=== PATIENT | female | born 1935 | race African-American/Black ===

== ENCOUNTER 2016-07-05 11:20 | Inpatient (IN) | payer MEDICARE, OTHER ==
[~2016-07-05] VITALS: Ht 162.6 cm; Wt 78.6 kg
[~2016-07-05 11:20] MED LIST: ALLO300T PO; ASPI325T4 PO; ASPI81TA2 PO; ATEN25TA PO; ATEN50TA PO; CARB1TAB2 PO; CARB1TAB5 PO; CHOL100013 PO; CHOL1CRY3 MC; DARB100D IJ; DARB60DI IJ; EPOE20002 IJ; FAMO-63 PO; FAMO20TA5 PO; FEBU40TA PO; FERR159T3 PO; FERR160T4 PO; FURO-69 PO; FURO20TA3 PO; HYDR-2666 PO; IRON150C3 PO; LEVO500T38 PO; PARI1CAP PO; PARI2CAP PO; RIVA10TA PO; RIVA20TA2 PO; [UNRECOGNIZED DRUG - CODE] PO
[2016-07-05] MEDS ORDERED: FENTANYL PF 100 MCG/2 ML VIAL. IV PRN (12:30)
[2016-07-05 12:38] LABS: BILIRUBIN,URINE NEGATIVE (NEG); GLUCOSE,URINE NEGATIVE (NEG); NITRITE,URINE NEGATIVE (NEG); PH,URINE 6.5; PROTEIN,URINE NEGATIVE (NEG-TRACE)
[2016-07-05 12:40] LABS: BASO # 0.1 x10^3/uL (0.0-0.2); BASO % 1 % (0-3); EOS % 1 % (0-3); HEMATOCRIT 32.7 % (36.0-47.0); HEMOGLOBIN 9.9 g/dL (12.0-15.5); LYMPH % 11 % (24-48); MEAN CORPUSCULAR HEMOGLOBIN 19 pg (25-35); MEAN CORPUSCULAR HGB CONC 30 g/dL (31-37); MEAN CORPUSCULAR VOLUME 63 fL (79-100); MONO % 6 % (0-9); NEUT % 82 % (31-73); PLATELET COUNT 269 x10^3/uL (140-400); RED BLOOD COUNT 5.21 x10^6/uL (3.50-5.40); RED CELL DISTRIBUTION WIDTH 16.7 % (11.5-14.5); WHITE BLOOD COUNT 9.3 x10^3/uL (4.0-11.0)
[2016-07-05 12:46] LABS: CALCIUM 9.8 mg/dL (8.5-10.1); CREATININE 1.3 mg/dL (0.6-1.0); GFR 47.6; POTASSIUM 3.9 mmol/L (3.5-5.1)
[2016-07-05 12:52] LABS: BACTERIA,URINE 0 /HPF (0-FEW); RBC,URINE OCC /HPF (0-2); SQUAMOUS EPITHELIAL CELL,UR FEW /LPF; WBC,URINE 0 /HPF (0-4)
[2016-07-05 12:52] LABS: ALBUMIN 3.1 g/dL (3.4-5.0); DIRECT BILIRUBIN 0.1 mg/dL (0.0-0.2); TOTAL BILIRUBIN 0.6 mg/dL (0.2-1.0); TOTAL PROTEIN 7.9 g/dL (6.4-8.2)
[2016-07-05 12:55] LABS: INR 1.2 (0.8-1.1); PROTHROMBIN TIME PATIENT 14.7 SEC (11.7-14.0)
--- NOTE | 2016-07-05 14:05 | RAD ---
VENOUS LOWER EXT BILATERAL History:Right greater than left leg swelling, edema, history of left DVT Comparison: 07/12/2015 bilateral exam Findings:Multiple grayscale, color, duplex spectral analysis waveform images were acquired of the lower extremity veins bilaterally. There is now occlusive thrombus of the right greater saphenous vein with extent into the right common femoral vein, occlusive flow of these segments. Remainder of the interrogated right lower extremity veins are patent from the superficial femoral vein to the popliteal vein. There is occlusive thrombus in the right greater saphenous vein from the distal thigh into the superficial saphenous vein. There is again abnormal echogenicity in the left common femoral vein, also segments of the left superficial femoral vein and popliteal vein which appears chronic. There is normal color flow of the proximal left profunda femoris vein. There is edema of the right lower extremity soft tissues. Impression: 1.There is occlusive thrombus of the right greater saphenous vein which extends into the right common femoral vein, likely acute. 2. There is chronic appearing thrombus of the left lower extremity veins. Critical results were called to Dr. Eugene 07/05/2016 at 1401.
--- NOTE | 2016-07-05 14:14 | PHYS DOC ---
Past Medical History Past Medical History: Other Past Medical History Constipation, Hypertension, Renal Disease, chronic kidney disease, dvt left leg with IVC filter, anemia w blood tranfusion Past Surgical History: Cholecystectomy Additional Past Surgical Histo: cataract,gout, IVC filter Alcohol Use: None Drug Use: None Adult General Chief Complaint Chief Complaint: ABDOMINAL PAIN HPI HPI Patient is a 81 year old female with h/o LLE DVT and IVC filter on aspirin therapy who presents with complaint of right pelvic pain moving through to her right thigh over the past 3 days. She notes a constant pain that is worse with range of motion of her right lower extremity at the hip. She notes redness along her right inner thigh developing along the same timeline. She notes swelling of her right lower extremity entirety over the same timeline. She denies injury, numbness, tingling, weakness, fever or chills, nausea or vomiting , dysuria, hematuria, constipation, diarrhea. Review of Systems Review of Systems Constitutional: Denies fever or chills [] Eyes: Denies change in visual acuity, redness, or eye pain [] HENT: Denies nasal congestion or sore throat [] Respiratory: Denies cough or shortness of breath [] Cardiovascular: No additional information not addressed in HPI [] GI: Denies nausea, vomiting, bloody stools or diarrhea [] : Denies dysuria or hematuria [] Musculoskeletal: Denies back pain [] Integument: Denies skin lesions [] Neurologic: Denies headache, focal weakness or sensory changes [] Endocrine: Denies polyuria or polydipsia [] Current Medications Current Medications Current Medications Medications (Trade) Dose Ordered Sig/[facility] Start Time Stop Time Status Last Admin Dose Admin Acetaminophen 650 mg 650 mg PRN Q4HRS PRN 07/05/16 14:30 07/06/16 14:29 Fentanyl Citrate (Fentanyl 2ml Vial) 50 mcg PRN Q2HR PRN 07/05/16 14:30 07/06/16 14:29 Heparin Sodium (Porcine) 1,200 unit PRN Q6HRS PRN 07/05/16 14:45 Heparin Sodium/ Dextrose 500 ml @ 0 mls/hr CONT PRN 07/05/16 14:45 Ondansetron HCl (Zofran) 4 mg PRN Q8HRS PRN 07/05/16 14:30 07/06/16 14:29 Allergies Allergies Allergies Coded Allergies Type Severity Reaction Last Updated Verified No Known Drug Allergies 06/23/16 No Physical Exam Physical Exam Constitutional: Well developed, well nourished, no acute distress, non-toxic appearance. [] HENT: Normocephalic, atraumatic, bilateral external ears normal, oropharynx moist, nose normal. [] Eyes: PERRLA, EOMI. [] Neck: Normal range of motion, supple. [] Cardiovascular:Heart rate regular rhythm [] Lungs & Thorax: Bilateral breath sounds clear to auscultation [] Abdomen: Bowel sounds normal, soft, no tenderness. [] Skin: Warm, dry, no erythema, no rash. [] Back: No tenderness, no CVA tenderness. [] Extremities: Right lower extremity swollen and entirety than left lower extremity, right lower extremity with redness to proximal inner thigh that has mild tenderness with no crepitance/induration/fluctuance/warmth, ROM intact, 1+ left lower extremity pitting edema and 2+ right lower extremity pitting edema, equal bilateral DP pulses. [] Neurologic: Alert and oriented X 3, normal motor function, normal sensory function, no focal deficits noted. [] Psychologic: Affect normal, judgement normal, mood normal. [] Current Patient Data Vital Signs Vital Signs Date Time Temp Pulse Resp B/P Pulse Ox O2 Delivery O2 Flow Rate FiO2 07/05/16 14:43 68 14 154/77 96 Room Air 07/05/16 11:45 97.9 97.9 Lab Values Laboratory Tests Test 07/05/16 11:50 07/05/16 12:00 Urine Collection Type Unknown Urine Color Yellow Urine Clarity Clear Urine pH 6.5 Urine Specific [place] 1.010 Urine Protein Negativemg/dL (NEG-TRACE) Urine Glucose (UA) Negativemg/dL (NEG) Urine Ketones (Stick) Negativemg/dL (NEG) Urine Blood Trace (NEG) Urine Nitrite Negative (NEG) Urine Bilirubin Negative (NEG) Urine Urobilinogen Dipstick 1.0mg/dL (0.2 mg/dL) Urine Leukocyte Esterase Negative (NEG) Urine RBC Occ/HPF (0-2) Urine WBC 0/HPF (0-4) Urine Squamous Epithelial Cells Few/LPF Urine Bacteria 0/HPF (0-FEW) Urine Hyaline Casts Few/HPF White Blood Count 9.3x10^3/uL (4.0-11.0) Red Blood Count 5.21x10^6/uL (3.50-5.40) Hemoglobin 9.9g/dL (12.0-15.5) L Hematocrit 32.7% (36.0-47.0) L Mean Corpuscular Volume 63fL (79-100) L Mean Corpuscular Hemoglobin 19pg (25-35) L Mean Corpuscular Hemoglobin Concent 30g/dL (31-37) L Red Cell Distribution Width 16.7% (11.5-14.5) H Platelet Count 269x10^3/uL (140-400) Neutrophils (%) (Auto) 82% (31-73) H Lymphocytes (%) (Auto) 11% (24-48) L Monocytes (%) (Auto) 6% (0-9) Eosinophils (%) (Auto) 1% (0-3) Basophils (%) (Auto) 1% (0-3) Neutrophils # (Auto) 7.6x10^3uL (1.8-7.7) Lymphocytes # (Auto) 1.0x10^3/uL (1.0-4.8) Monocytes # (Auto) 0.6x10^3/uL (0.0-1.1) Eosinophils # (Auto) 0.1x10^3/uL (0.0-0.7) Basophils # (Auto) 0.1x10^3/uL (0.0-0.2) Platelet Estimate Adequate (ADEQUATE) Hypochromasia Marked Poikilocytosis Slight Anisocytosis Slight Microcytosis Marked Target Cells Mod Prothrombin Time 14.7SEC (11.7-14.0) H Prothrombin Time INR 1.2 (0.8-1.1) H PTT 35SEC (24-38) Sodium Level 138mmol/L (136-145) Potassium Level 3.9mmol/L (3.5-5.1) Chloride Level 103mmol/L (98-107) Carbon Dioxide Level 28mmol/L (21-32) Anion Gap 7 (6-14) Blood Urea Nitrogen 17mg/dL (7-20) Creatinine 1.3mg/dL (0.6-1.0) H Estimated GFR (Cockcroft-Gault) 47.6 Glucose Level 115mg/dL (70-99) H Calcium Level 9.8mg/dL (8.5-10.1) Total Bilirubin 0.6mg/dL (0.2-1.0) Direct Bilirubin 0.1mg/dL (0.0-0.2) Aspartate Amino Transferase (AST) 14U/L (15-37) L Alanine Aminotransferase (ALT) 6U/L (14-59) L Alkaline Phosphatase 66U/L (46-116) Total Protein 7.9g/dL (6.4-8.2) Albumin 3.1g/dL (3.4-5.0) L Lipase 158U/L (73-393) Laboratory Tests 07/05/16 12:00 Laboratory Tests 07/05/16 12:00 Radiology/Procedures Radiology/Procedures US venous doppler bilateral lower extremity Impression: 1.There is occlusive thrombus of the right greater saphenous vein which extends into the right common femoral vein, likely acute. 2. There is chronic appearing thrombus of the left lower extremity veins. Critical results were called to Dr. Marcelo 07/05/2016 at 1401. DICTATED and SIGNED BY: SAMANTHA ARELLANO MD DATE: 07/05/16 3559 Course & Med Decision Making Course & Med Decision Making Pertinent Labs and Imaging studies reviewed. (See chart for details) It is questionable that she was taken off xarelto for GI bleeding. Patient and daughter note she had one episode of dark stool around the time that she was taken off of xarelto. She has only been on aspirin for approximately 6 months. Workup remarkable for chronic appearing left lower extremity DVT and new- appearing right lower extremity DVT seen on ultrasound. Will admit for anticoagulation therapy. Discussed case with Dr. Carvalho, for Dr. Varner, who will admit. Heparin drip ordered. Dragon Disclaimer Dragon Disclaimer This electronic medical record was generated, in whole or in part, using a voice recognition dictation system. Departure Departure Impression: Primary Impression: DVT (deep venous thrombosis) Disposition: ADMITTED INPATIENT Condition: STABLE Referrals: FATIMAH VARNER MD (PCP) Problem Qualifiers Primary Impression: DVT (deep venous thrombosis) DVT location: lower extremity Affected thrombotic vein of extremity: femoral Laterality: right Chronicity: acute Qualified Code: I82.411 - Acute embolism and thrombosis of right femoral vein Gia MARCELO MD Jul 05, 2016 14:14
[2016-07-05 14:15] LABS: HYPOCHROMIA MARKED; PLT ESTIMATE ADEQUATE (ADEQUATE); POIKILOCYTOSIS SLIGHT
[2016-07-05 14:16] LABS: ANISOCYTOSIS SLIGHT; MICROCYTOSIS MARKED; TARGET CELLS MOD
[2016-07-05] MEDS ORDERED: ONDANSETRON PF 4 MG/2 ML VIAL. IV PRN (14:30)
[2016-07-05] MEDS ORDERED: HEPARIN for IV BOLUS 10,000 UNIT/10 ML VIAL. IV PRN ×2 (14:45)
[2016-07-05] MEDS: HEPARIN 25,000UTS/500ML PREMIX 500 ML IV PRN (16:29)
--- NOTE | 2016-07-05 16:46 | ACF ---
Admission Forms Criteria DEEP VENOUS THROMBOSIS OF LOWER EXTREMITIES Clinical Indications for Admission to Inpatient Care ( Place 'X' for any and all applicable criteria): Admission is indicated for ANY ONE of the following (1)(2)(3)(4): [ ]I. Documented extensive thrombosis (e.g., clot in vena cava or above iliofemoral bifurcation) [ ]II. Limb-threatening thrombosis (e.g., phlegmasia cerulea dolens) [ ]III. Active bleeding [ ]IV. Recent surgery (e.g., within 6 weeks) [ ]V. Active peptic ulcer disease [ ]. Thrombosis while on anticoagulation [ ]VII. [X]VIII. Appropriate monitoring and therapy cannot be provided in home or outpatient setting [ ]IX. Thrombolysis (e.g., catheter-directed) or pharmaco mechanical thrombectomy needed (3) [ ]X. Vena cava filter placement planned (3) [ ]XI. Severely diminished cardiopulmonary reserve (e.g., pulmonary hypertension) [ ]XII. Severe renal failure (e.g., GFR less than 30 mL/min/1.73m2 (0.5 mL/sec /1.73m2)) [ ]XIII. Known clotting abnormality or deficiency (antithrombin III, protein C , or protein S) [ ]XIV. History of heparin-induced thrombocytopenia [ ]XV . Personal or family history of bleeding tendency or familial bleeding disorder that requires inpatient admission rather than observation care (Also use Deep Venous Thrombosis of Lower Extremities: Observation Care as appropriate) because of ANY ONE of the following: [ ]a) Significant allergic, autoimmune (thrombocytopenia), or coagulopathic reaction occurs in response to anticoagulation [ ]b) Other significant finding or clinical condition judged not to be within the scope of observation care Extended stay beyond goal length of stay may be needed for(1)(19): [ ]a) Hemorrhage or recent surgery(3) [ ]b) Inadequate oral anticoagulation [ ]c) Recurrent thromboembolism(3) [ ]d) Heparin-induced thrombocytopenia(14) The original [facility] content created by [facility] has been revised. The portions of the content which have been revised are identified through the use of italic text or in bold, and [facility] has neither reviewed nor approved the modified material. All other unmodified content is copyright [facility]. Please see references footnoted in the original [facility] edition 2016 Admission Criteria Met?: Yes NELSON UMANZOR Jul 05, 2016 16:46
[2016-07-05 18:40] VITALS: BP 133/58
[2016-07-05 19:00] VITALS: BP 129/62
[2016-07-05] MEDS: FENTANYL PF 100 MCG/2 ML VIAL. IV PRN ×2 (20:13→23:57)
[2016-07-05] MEDS: CARBIDOPA/LEVODOPA CR 25/100MG TABLET.SA PO SCH (20:44)
[2016-07-05 23:00] VITALS: BP 116/56
[2016-07-06] MEDS: ACETAMINOPHEN 325 MG TABLET. PO PRN ×2 (01:03→13:32)
[2016-07-06 03:06] VITALS: BP 106/54
[2016-07-06 07:00] VITALS: BP 122/68
--- NOTE | 2016-07-06 08:53 | PDOC ---
Provider Note Provider Note H&P dictated # [id number] Deejay MACK MD Jul 06, 2016 08:53
[2016-07-06 09:01] LABS: % SAT IRON 14 % (15-34); IRON,SERUM 19 ug/dL (50-170)
[2016-07-06 10:36] VITALS: BP 115/59
[2016-07-06] MEDS: CARBIDOPA/LEVODOPA CR 25/100MG TABLET.SA PO SCH ×4 (12:11→21:20)
[2016-07-06] MEDS: CHOLECALCIFEROL (VITAMIN D3) 1,000 UNIT TABLET PO SCH (12:11)
[2016-07-06] MEDS: PARICALCITOL 1 MCG CAPSULE PO SCH (12:11)
[2016-07-06] MEDS: HEPARIN 25,000UTS/500ML PREMIX 500 ML IV PRN (12:19)
--- NOTE | 2016-07-06 12:23 | HP ---
ADMIT DATE: 07/05/2016 ADMISSION DIAGNOSIS: Acute deep venous thrombosis. HISTORY OF PRESENT ILLNESS: This is an 81-year-old -[place] female with Parkinson's disease who saw Dr. Varner last fall and had some rectal bleeding. She was on Xarelto at that time and because of heme positive stool and a history of prior GI bleed, it was stopped. She was placed on 325 mg aspirin instead and has done well until recently when she noticed some swelling in her right leg. She has also had some discomfort in that leg. She has previously had a DVT in her left leg, but she also has an IVC filter. She has a history of iron deficiency anemia and has had blood transfusions in the past with her GI bleeding. PAST MEDICAL HISTORY: Significant for hypertension, chronic kidney disease, constipation related to her Parkinson's, gout. PAST SURGICAL HISTORY: Include cholecystectomy and IVC filter placement, cataract extraction. FAMILY HISTORY: Noncontributory. SOCIAL HISTORY: Nonsmoker, no alcohol, no drug use. ALLERGIES: She has no known drug allergies. HOME MEDICATIONS: Include allopurinol 300 mg daily, Sinemet controlled release 50-200 one t.i.d., vitamin D 1000 mg daily, furosemide 20 mg daily, Ferrex 150 mg 1 daily, Zemplar 1 mcg daily. REVIEW OF SYSTEMS: CONSTITUTIONAL: No recent cold symptoms. No fever, chills or weight loss. PULMONARY: Negative for cough. CARDIAC: Negative for chest pain. GASTROINTESTINAL: Negative for nausea, vomiting or diarrhea. GENITOURINARY: She urinates well. No dysuria. MUSCULOSKELETAL: She denies acute joint pain. She has noticed the swelling just over the recent days in her right upper leg and some pain down the right leg. NEUROLOGIC: Positive for Parkinson's tremor that seems to be a little more active since she last saw Dr. Mirza. She is also having some episodes where she tends to freeze before she can get up and walk. She has been sleeping well. She still gets out about, although she does not drive. PHYSICAL EXAMINATION: VITAL SIGNS: Temperature 98.1, pulse 81, respiratory rate 18-20. Pulse oximetry is upper 90% on room air. Blood pressures have been in the 110/70 range. GENERAL: She is no acute distress. She has a slight head tremor. She has got a parkinsonian pill-rolling tremor of her arms, more so on the right. HEART: Regular rate and rhythm. LUNGS: Clear to auscultation. ABDOMEN: Nondistended. EXTREMITIES: There is some mild swelling of the right leg. Lower extremity Doppler shows new clot in the right leg, old clot in the left leg. LABORATORY DATA: Show a persistent anemia, hemoglobin of 9.9, MCV is low at 63. Marked microcytosis is noted. Moderate ____ are noted. INR is 1.2. Chemistry show a creatinine of 1.3 with EGFR of 47, glucose of 115, albumin of 3.1. ASSESSMENT: 1. Acute deep venous thrombosis of the right leg with a history of prior deep venous thrombosis in the left leg and IVC filter placement, so she is not at a higher risk of pulmonary embolism. 2. Parkinson's, more symptomatic. Recently, she seems to be fairly active, but certainly may have enough "sit down time to develop a DVT." She had not had any recent travel or prolonged sitting. 3. Chronic kidney disease. 4. Moderate protein deficiency. 5. History of gout. 6. Hypertension. 7. Constipation. PLAN: She is admitted. She is currently on heparin. She did tolerate Xarelto well in the past. The commercials on TV worried her daughter, but she is willing to go back on it. She has a followup appointment with Dr. Mirza who tried to have ropinirole while she is here and see if that does help with her Parkinson's and subsequently help with her being more active as her relative inactivity may have contributed to her DVT. She also has a history of iron deficiency. Despite being on iron, her anemia persists. Her MCV is still low, so we will assess her iron level and consider IV iron therapy while here. If iron level is low, she is probably not observing it well. W Angelina MACK MD DR: FAREED/eri JOB#: [id number] / [id number]
[2016-07-06] MEDS: FUROSEMIDE 20 MG TABLET PO SCH (13:12)
[2016-07-06] MEDS: rOPINIRole 0.25 MG TABLET. PO SCH ×3 (13:12→21:20)
[2016-07-06] MEDS: ALLOPURINOL 300 MG TABLET. PO SCH (13:13)
[2016-07-06] MEDS: IRON POLYSACCHARIDE COMPLEX 150 MG CAPSULE PO SCH (13:13)
[2016-07-06] MEDS: FENTANYL PF 100 MCG/2 ML VIAL. IV PRN (13:32)
[2016-07-06 15:00] VITALS: BP 123/66
[2016-07-06] MEDS ORDERED: IRON SUCROSE COMPLEX 200 MG in IV NORMAL SALINE 100ML 100 ML IV ONE (17:00)
[2016-07-06 19:00] VITALS: BP 112/62
[2016-07-06 23:00] VITALS: BP 113/65
[2016-07-07 03:00] VITALS: BP 131/79
[2016-07-07] MEDS: HEPARIN 25,000UTS/500ML PREMIX 500 ML IV PRN (05:44)
[2016-07-07 07:58] VITALS: BP 108/68
[2016-07-07] MEDS: ALLOPURINOL 300 MG TABLET. PO SCH (08:22)
[2016-07-07] MEDS: FUROSEMIDE 20 MG TABLET PO SCH (08:22)
[2016-07-07] MEDS: PARICALCITOL 1 MCG CAPSULE PO SCH (08:23)
[2016-07-07] MEDS: CARBIDOPA/LEVODOPA CR 25/100MG TABLET.SA PO SCH ×3 (08:23→20:22)
[2016-07-07] MEDS: rOPINIRole 0.25 MG TABLET. PO SCH ×3 (08:23→20:22)
[2016-07-07] MEDS: IRON POLYSACCHARIDE COMPLEX 150 MG CAPSULE PO SCH (08:23)
[2016-07-07] MEDS: CHOLECALCIFEROL (VITAMIN D3) 1,000 UNIT TABLET PO SCH (08:23)
--- NOTE | 2016-07-07 08:57 | PDOC ---
PROGRESS NOTES Subjective Subjective She is still having pain redness and swelling of right upper inner thigh, no chest pain, no other concerns, tolerating heparin without any bleeding, no GI symptoms Objective Objective Vital Signs Date Time Temp Pulse Resp B/P Pulse Ox O2 Delivery O2 Flow Rate FiO2 07/07/16 08:02 Room Air 07/07/16 07:58 97.9 81 18 108/68 95 97.9 Intake and Output 07/07/16 07:00 Intake Total 2660 ml Output Total 600 ml Balance 2060 ml Intake Oral 2160 ml IV Total 500 ml Output Urine Total 600 ml # Voids 6 Physical Exam Abdomen: Soft Heart: Regular rate Extremities: No clubbing, No cyanosis General: Alert, Cooperative HEENT: Atraumatic Lungs: Normal air movement MUSCULOSKELETAL: No joint tenderness Neuro: Other (less parkinsonian tremor noted) Psych/Mental Status: Mental status NL Skin: No breakdown Assessment Assessment Problems Medical Problems: (1) DVT (deep venous thrombosis) Status: Acute Plan Plan of Care continue heparin IV, no evidence of complications, stable chronic medical problems Comment Review of Relevant I have reviewed the following items cathleen (where applicable) has been applied. Labs Laboratory Tests Test 07/05/16 11:50 07/05/16 12:00 07/05/16 22:15 07/06/16 04:30 Urine Collection Type Unknown Urine Color Yellow Urine Clarity Clear Urine pH 6.5 Urine Specific [place] 1.010 Urine Protein Negativemg/dL (NEG-TRACE) Urine Glucose (UA) Negativemg/dL (NEG) Urine Ketones (Stick) Negativemg/dL (NEG) Urine Blood Trace (NEG) Urine Nitrite Negative (NEG) Urine Bilirubin Negative (NEG) Urine Urobilinogen Dipstick 1.0mg/dL (0.2 mg/dL) Urine Leukocyte Esterase Negative (NEG) Urine RBC Occ/HPF (0-2) Urine WBC 0/HPF (0-4) Urine Squamous Epithelial Cells Few/LPF Urine Bacteria 0/HPF (0-FEW) Urine Hyaline Casts Few/HPF White Blood Count 9.3x10^3/uL (4.0-11.0) Red Blood Count 5.21x10^6/uL (3.50-5.40) Hemoglobin 9.9g/dL (12.0-15.5) Hematocrit 32.7% (36.0-47.0) Mean Corpuscular Volume 63fL (79-100) Mean Corpuscular Hemoglobin 19pg (25-35) Mean Corpuscular Hemoglobin Concent 30g/dL (31-37) Red Cell Distribution Width 16.7% (11.5-14.5) Platelet Count 269x10^3/uL (140-400) Neutrophils (%) (Auto) 82% (31-73) Lymphocytes (%) (Auto) 11% (24-48) Monocytes (%) (Auto) 6% (0-9) Eosinophils (%) (Auto) 1% (0-3) Basophils (%) (Auto) 1% (0-3) Neutrophils # (Auto) 7.6x10^3uL (1.8-7.7) Lymphocytes # (Auto) 1.0x10^3/uL (1.0-4.8) Monocytes # (Auto) 0.6x10^3/uL (0.0-1.1) Eosinophils # (Auto) 0.1x10^3/uL (0.0-0.7) Basophils # (Auto) 0.1x10^3/uL (0.0-0.2) Platelet Estimate Adequate (ADEQUATE) Hypochromasia Marked Poikilocytosis Slight Anisocytosis Slight Microcytosis Marked Target Cells Mod Prothrombin Time 14.7SEC (11.7-14.0) Prothromb Time International Ratio 1.2 (0.8-1.1) Activated Partial Thromboplast Time 35SEC (24-38) Sodium Level 138mmol/L (136-145) Potassium Level 3.9mmol/L (3.5-5.1) Chloride Level 103mmol/L (98-107) Carbon Dioxide Level 28mmol/L (21-32) Anion Gap 7 (6-14) Blood Urea Nitrogen 17mg/dL (7-20) Creatinine 1.3mg/dL (0.6-1.0) Estimated GFR (Cockcroft-Gault) 47.6 Glucose Level 115mg/dL (70-99) Calcium Level 9.8mg/dL (8.5-10.1) Total Bilirubin 0.6mg/dL (0.2-1.0) Direct Bilirubin 0.1mg/dL (0.0-0.2) Aspartate Amino Transf (AST/SGOT) 14U/L (15-37) Alanine Aminotransferase (ALT/SGPT) 6U/L (14-59) Alkaline Phosphatase 66U/L (46-116) Total Protein 7.9g/dL (6.4-8.2) Albumin 3.1g/dL (3.4-5.0) Lipase 158U/L (73-393) Heparin Anti-Xa Act, Unfractionated 0.35IU/mL (0.30-0.70) 0.49IU/mL (0.30-0.70) Iron Level 19ug/dL (50-170) Total Iron Binding Capacity 133ug/dL (250-450) Iron Saturation 14% (15-34) Test 07/07/16 04:30 Heparin Anti-Xa Act, Unfractionated 0.63IU/mL (0.30-0.70) Laboratory Tests Test 07/07/16 04:30 Heparin Anti-Xa Act, Unfractionated 0.63IU/mL (0.30-0.70) Medications Current Medications Fentanyl Citrate (Fentanyl 2ml Vial) 25 mcg PRN Q15MIN PRN IV PAIN GREATER THAN 3/10 Last administered on 07/05/16 12:45; Start 07/05/16 at 12:30; Stop at 12:29; Status DC Ondansetron HCl (Zofran) 4 mg PRN Q8HRS PRN IV NAUSEA/VOMITING; Start 07/05/16 at 14:30; Stop 07/06/16 at 14:29; Status DC Fentanyl Citrate (Fentanyl 2ml Vial) 50 mcg PRN Q2HR PRN IV PAIN Last administered on 07/06/16 13:32; Start 07/05/16 at 14:30; Stop 07/06/16 at 14:29 ; Status DC Acetaminophen 650 mg 650 mg PRN Q4HRS PRN PO FEVER Last administered on 13:32; Start 07/05/16 at 14:30; Stop 07/06/16 at 14:29; Status DC Heparin Sodium/ Dextrose 500 ml @ 0 mls/hr CONT PRN IV SEE I/O RECORD Last administered on 07/07/16 05:44; Start 07/05/16 at 14:45 Heparin Sodium (Porcine) 2,450 unit PRN Q6HRS PRN IV FOR UFH LEVEL LESS THAN 0.2 Last administered on 07/05/16 16:27; Start 07/05/16 at 14:45 Heparin Sodium (Porcine) 1,200 unit PRN Q6HRS PRN IV FOR UFH LEVEL 0.2 - 0.29; Start 07/05/16 at 14:45 Furosemide (Lasix) 20 mg DAILY PO Last administered on 07/07/16 08:22; Start 07/06/16 at 09:00 Polysaccharide Iron Complex (Niferex 150) 150 mg DAILY PO Last administered on 07/07/16 08:23; Start 07/06/16 at 09:00 Carbidopa/Levodopa (Sinemet Cr) 2 tab.sa TID PO Last administered on 07/07/16 08:23; Start 07/05/16 at 21:00 Vitamin D (Vitamin D3) 1,000 unit DAILY PO Last administered on 07/07/16 08:23 ; Start 07/06/16 at 09:00 Paricalcitol (Zemplar) 1 mcg DAILY PO Last administered on 07/07/16 08:23; Start 07/06/16 at 09:00 Allopurinol (Zyloprim) 300 mg DAILY PO Last administered on 07/07/16 08:22; Start 07/06/16 at 09:00 Ropinirole HCl 0.25 mg 0.25 mg TID PO Last administered on 07/07/16 08:23; Start 07/06/16 at 09:30 Iron Sucrose/ Sodium Chloride (Venofer/Iv Sodium Chloride 0.9% 100ml) 110 ml @ 55 mls/hr 1X ONCE IV Last administered on 07/06/16 22:18; Start 07/06/16 at 17:00; Stop 07/06/16 at 18:59; Status DC Active Scripts Active Reported Ferrex 150 (Iron Polysaccharides Complex) 150 Mg Capsule 150 Mg PO DAILY Sinemet Cr 50-200 Tablet (Carbidopa/Levodopa) 1 Each Tablet.er 1 Tab PO TID Allopurinol 300 Mg Tablet 1 Tab PO DAILY Furosemide 20 Mg Tablet 20 Mg PO DAILY Cholecalciferol (Cholecalciferol (Vitamin D3)) 1 Gm Crystals 1 Gm MC DAILY Zemplar (Paricalcitol) 2 Mcg Capsule 1 Mcg PO DAILY Vitals/I & O Vital Sign - Last 24 Hours 07/06/16 07/06/16 07/06/16 07/06/16 10:36 13:32 15:00 19:00 Temp 98.8 97.9 97.9 98.8 97.9 97.9 Pulse 66 74 73 Resp B/P 115/59 123/66 112/62 Pulse Ox 99 99 100 97 O2 Delivery Room Air Room Air Room Air Room Air 07/06/16 07/06/16 07/07/16 07/07/16 19:15 23:00 03:00 07:58 Temp 97.7 98.1 97.9 97.7 98.1 97.9 Pulse 76 80 81 Resp B/P 113/65 131/79 108/68 Pulse Ox 93 95 95 O2 Delivery Room Air Room Air Room Air Room Air 07/07/16 08:02 O2 Delivery Room Air Intake and Output 07/06/16 07/06/16 07/07/16 15:00 23:00 07:00 Intake Total 550 ml 1250 ml 860 ml Output Total 600 ml Balance -50 ml 1250 ml 860 ml Deejay MACK MD Jul 07, 2016 08:57
[2016-07-07 11:30] VITALS: BP 138/77
[2016-07-07] MEDS: ANTI-COAG MONITOR BY PHARMACY. MC PRN (13:34)
[2016-07-07 15:00] VITALS: BP 133/74
[2016-07-07 19:00] VITALS: BP 140/76
[2016-07-07 23:00] VITALS: BP 145/77
[2016-07-08] MEDS: HEPARIN 25,000UTS/500ML PREMIX 500 ML IV PRN ×2 (01:59→20:47)
[2016-07-08 03:02] VITALS: BP 132/73
[2016-07-08 07:15] VITALS: BP 133/75
[2016-07-08] MEDS: rOPINIRole 0.25 MG TABLET. PO SCH ×3 (08:59→20:42)
[2016-07-08] MEDS: IRON POLYSACCHARIDE COMPLEX 150 MG CAPSULE PO SCH (08:59)
[2016-07-08] MEDS: PARICALCITOL 1 MCG CAPSULE PO SCH (08:59)
[2016-07-08] MEDS: FUROSEMIDE 20 MG TABLET PO SCH (08:59)
[2016-07-08] MEDS: ALLOPURINOL 300 MG TABLET. PO SCH (08:59)
[2016-07-08] MEDS: CHOLECALCIFEROL (VITAMIN D3) 1,000 UNIT TABLET PO SCH (08:59)
[2016-07-08] MEDS: CARBIDOPA/LEVODOPA CR 25/100MG TABLET.SA PO SCH ×3 (10:17→20:42)
[2016-07-08 11:12] VITALS: BP 154/99
[2016-07-08] MEDS: ANTI-COAG MONITOR BY PHARMACY. MC PRN ×3 (14:11→14:15)
[2016-07-08 15:08] VITALS: BP 115/70
--- NOTE | 2016-07-08 16:48 | PDOC ---
PROGRESS NOTES Subjective Subjective She has been in bed most of the day, still having pain right upper inner thigh but improved, she seems to notice more edema of right leg, tolerating heparin without bleeding Objective Objective Vital Signs Date Time Temp Pulse Resp B/P Pulse Ox O2 Delivery O2 Flow Rate FiO2 07/08/16 15:08 97.6 79 18 115/70 96 Room Air 97.6 Intake and Output 07/08/16 07:00 Intake Total 780 ml Output Total 303 ml Balance 477 ml Intake Oral 280 ml IV Total 500 ml Output Urine Total 301 ml Urine/Stool Mix 2 ml # Voids 2 Physical Exam Abdomen: Normal bowel sounds, Soft Heart: Regular rate Extremities: No clubbing, No cyanosis, Other (4+ edema of right leg without any ulceration of venous stasis changes or erythema, tenderness in upper inner right thigh) General: Alert, Oriented X3, Cooperative HEENT: Atraumatic, Mucous membr. moist/pink Lungs: Clear to auscultation Neck: Supple Neuro: Normal speech, Other (no tremor currently) Psych/Mental Status: Mental status NL, Mood NL Skin: No breakdown Assessment Assessment Problems Medical Problems: (1) DVT (deep venous thrombosis) Status: Acute Plan Plan of Care continue heparin, she is willing to go back on xarelto po, add HCTZ for edema and PT,OT, continue parkinson meds, hopefully home with home health in a day or two Comment Review of Relevant I have reviewed the following items cathleen (where applicable) has been applied. Labs Laboratory Tests Test 07/07/16 04:30 07/08/16 04:47 Heparin Anti-Xa Act, Unfractionated 0.63IU/mL (0.30-0.70) 0.61IU/mL (0.30-0.70) Laboratory Tests Test 07/08/16 04:47 Heparin Anti-Xa Act, Unfractionated 0.61IU/mL (0.30-0.70) Medications Current Medications Fentanyl Citrate (Fentanyl 2ml Vial) 25 mcg PRN Q15MIN PRN IV PAIN GREATER THAN 3/10 Last administered on 07/05/16t 12:45; Start 07/05/16 at 12:30; Stop at 12:29; Status DC Ondansetron HCl (Zofran) 4 mg PRN Q8HRS PRN IV NAUSEA/VOMITING; Start 07/05/16 at 14:30; Stop 07/06/16 at 14:29; Status DC Fentanyl Citrate (Fentanyl 2ml Vial) 50 mcg PRN Q2HR PRN IV PAIN Last administered on 07/06/16 13:32; Start 07/05/16 at 14:30; Stop 07/06/16 at 14:29 ; Status DC Acetaminophen 650 mg 650 mg PRN Q4HRS PRN PO FEVER Last administered on 13:32; Start 07/05/16 at 14:30; Stop 07/06/16 at 14:29; Status DC Heparin Sodium/ Dextrose 500 ml @ 0 mls/hr CONT PRN IV SEE I/O RECORD Last administered on 07/08/16 01:59; Start 07/05/16 at 14:45 Heparin Sodium (Porcine) 2,450 unit PRN Q6HRS PRN IV FOR UFH LEVEL LESS THAN 0.2 Last administered on 07/05/16 16:27; Start 07/05/16 at 14:45 Heparin Sodium (Porcine) 1,200 unit PRN Q6HRS PRN IV FOR UFH LEVEL 0.2 - 0.29; Start 07/05/16 at 14:45 Furosemide (Lasix) 20 mg DAILY PO Last administered on 07/08/16 08:59; Start 07/06/16 at 09:00 Polysaccharide Iron Complex (Niferex 150) 150 mg DAILY PO Last administered on 07/08/16 08:59; Start 07/06/16 at 09:00 Carbidopa/Levodopa (Sinemet Cr) 2 tab.sa TID PO Last administered on 07/08/16 12:39; Start 07/05/16 at 21:00 Vitamin D (Vitamin D3) 1,000 unit DAILY PO Last administered on 07/08/16 08:59 ; Start 07/06/16 at 09:00 Paricalcitol (Zemplar) 1 mcg DAILY PO Last administered on 07/08/16 08:59; Start 07/06/16 at 09:00 Allopurinol (Zyloprim) 300 mg DAILY PO Last administered on 07/08/16 08:59; Start 07/06/16 at 09:00 Ropinirole HCl 0.25 mg 0.25 mg TID PO Last administered on 07/08/16 12:39; Start 07/06/16 at 09:30 Iron Sucrose/ Sodium Chloride (Venofer/Iv Sodium Chloride 0.9% 100ml) 110 ml @ 55 mls/hr 1X ONCE IV Last administered on 07/06/16 22:18; Start 07/06/16 at 17:00; Stop 07/06/16 at 18:59; Status DC Info (Anti-Coagulation Monitoring By Pharmacy) 1 each PRN DAILY PRN MC SEE COMMENTS Last administered on 07/08/16 14:15; Start 07/07/16 at 13:30 Active Scripts Active Reported Ferrex 150 (Iron Polysaccharides Complex) 150 Mg Capsule 150 Mg PO DAILY Sinemet Cr 50-200 Tablet (Carbidopa/Levodopa) 1 Each Tablet.er 1 Tab PO TID Allopurinol 300 Mg Tablet 1 Tab PO DAILY Furosemide 20 Mg Tablet 20 Mg PO DAILY Cholecalciferol (Cholecalciferol (Vitamin D3)) 1 Gm Crystals 1 Gm MC DAILY Zemplar (Paricalcitol) 2 Mcg Capsule 1 Mcg PO DAILY Vitals/I & O Vital Sign - Last 24 Hours 07/07/16 07/07/16 07/07/16 07/08/16 19:00 20:00 23:00 03:02 Temp 97.7 97.9 97.9 97.7 97.9 97.9 Pulse 70 73 86 Resp 18 18 20 B/P 140/76 145/77 132/73 Pulse Ox 95 97 98 O2 Delivery Room Air Room Air Room Air Room Air 07/08/16 07/08/16 07/08/16 07/08/16 07:15 08:00 11:12 15:08 Temp 97.8 98.0 97.6 97.8 98.0 97.6 Pulse 67 88 79 Resp 18 20 18 B/P 133/75 154/99 115/70 Pulse Ox 96 94 96 O2 Delivery Room Air Room Air Room Air Room Air Intake and Output 07/07/16 07/07/16 07/08/16 15:00 23:00 07:00 Intake Total 280 ml 500 ml Output Total 2 ml 301 ml Balance 280 ml -2 ml 199 ml Deejay MACK MD Jul 08, 2016 16:48
[2016-07-08] MEDS: HYDROCHLOROTHIAZIDE 25 MG TABLET PO SCH (18:21)
[2016-07-08 19:00] VITALS: BP 139/60
[2016-07-08 22:54] VITALS: BP 121/63
[2016-07-09 03:00] VITALS: BP 119/66
[2016-07-09 05:59] LABS: BASO # 0.1 x10^3/uL (0.0-0.2); BASO % 1 % (0-3); EOS % 6 % (0-3); HEMATOCRIT 30.8 % (36.0-47.0); HEMOGLOBIN 9.4 g/dL (12.0-15.5); LYMPH # 1.8 x10^3/uL (1.0-4.8); LYMPH % 28 % (24-48); MEAN CORPUSCULAR HEMOGLOBIN 19 pg (25-35); MEAN CORPUSCULAR HGB CONC 31 g/dL (31-37); MEAN CORPUSCULAR VOLUME 61 fL (79-100); MONO % 6 % (0-9); NEUT % 59 % (31-73); PLATELET COUNT 361 x10^3/uL (140-400); RED BLOOD COUNT 5.08 x10^6/uL (3.50-5.40); RED CELL DISTRIBUTION WIDTH 16.5 % (11.5-14.5); WHITE BLOOD COUNT 6.4 x10^3/uL (4.0-11.0)
[2016-07-09 06:03] LABS: CALCIUM 10.3 mg/dL (8.5-10.1); CREATININE 1.1 mg/dL (0.6-1.0); GFR 57.7; POTASSIUM 4.1 mmol/L (3.5-5.1)
[2016-07-09 07:00] VITALS: BP 122/72
--- NOTE | 2016-07-09 08:36 | PDOC ---
PROGRESS NOTES Subjective Subjective Patient reports that she has been resting in bed for most of the last 24hrs. She stated that she believes the swelling in her leg is improving but she still has pain over her right medial upper leg. She denies any bleeding or other acute events overnight. Objective Objective Vital Signs Date Time Temp Pulse Resp B/P Pulse Ox O2 Delivery O2 Flow Rate FiO2 07/09/16 07:00 97.7 75 18 122/72 97 Room Air 97.7 Intake and Output 07/09/16 07:00 Intake Total 960 ml Output Total 2 ml Balance 958 ml Intake Oral 960 ml Output Urine Total 2 ml # Voids 5 Physical Exam Abdomen: Normal bowel sounds, Soft, No tenderness Heart: Regular rate, Normal S1, Normal S2, No murmurs Extremities: Other (Non-pitting edema and erythema over the right medial upper leg) General: Alert, Oriented X3, Cooperative, No acute distress Lungs: Clear to auscultation Neuro: Normal speech Psych/Mental Status: Mental status NL Assessment Assessment Problems Medical Problems: (1) DVT (deep venous thrombosis) Status: Acute Plan Plan of Care Medical Problems: (1) DVT (deep venous thrombosis)-Continue Heparin drip and plan to transition to Xarelto prior to discharge, Will need 2 weeks of PT/OT per therapy notes, Case Management notified. No bleeding complications (2) Parkinsons- ropinerole added to Sinemet but still a fall risk (3) hx of GI bleeding and now on PPI for GI prophylaxis Status: Acute Comment Review of Relevant I have reviewed the following items cathleen (where applicable) has been applied. Labs Laboratory Tests Test 07/08/16 04:47 07/09/16 04:54 Heparin Anti-Xa Act, Unfractionated 0.61IU/mL (0.30-0.70) White Blood Count 6.4x10^3/uL (4.0-11.0) Red Blood Count 5.08x10^6/uL (3.50-5.40) Hemoglobin 9.4g/dL (12.0-15.5) Hematocrit 30.8% (36.0-47.0) Mean Corpuscular Volume 61fL (79-100) Mean Corpuscular Hemoglobin 19pg (25-35) Mean Corpuscular Hemoglobin Concent 31g/dL (31-37) Red Cell Distribution Width 16.5% (11.5-14.5) Platelet Count 361x10^3/uL (140-400) Neutrophils (%) (Auto) 59% (31-73) Lymphocytes (%) (Auto) 28% (24-48) Monocytes (%) (Auto) 6% (0-9) Eosinophils (%) (Auto) 6% (0-3) Basophils (%) (Auto) 1% (0-3) Neutrophils # (Auto) 3.7x10^3uL (1.8-7.7) Lymphocytes # (Auto) 1.8x10^3/uL (1.0-4.8) Monocytes # (Auto) 0.4x10^3/uL (0.0-1.1) Eosinophils # (Auto) 0.4x10^3/uL (0.0-0.7) Basophils # (Auto) 0.1x10^3/uL (0.0-0.2) Sodium Level 144mmol/L (136-145) Potassium Level 4.1mmol/L (3.5-5.1) Chloride Level 106mmol/L (98-107) Carbon Dioxide Level 30mmol/L (21-32) Anion Gap 8 (6-14) Blood Urea Nitrogen 13mg/dL (7-20) Creatinine 1.1mg/dL (0.6-1.0) Estimated GFR (Cockcroft-Gault) 57.7 Glucose Level 88mg/dL (70-99) Calcium Level 10.3mg/dL (8.5-10.1) Laboratory Tests Test 07/09/16 04:54 White Blood Count 6.4x10^3/uL (4.0-11.0) Red Blood Count 5.08x10^6/uL (3.50-5.40) Hemoglobin 9.4g/dL (12.0-15.5) Hematocrit 30.8% (36.0-47.0) Mean Corpuscular Volume 61fL (79-100) Mean Corpuscular Hemoglobin 19pg (25-35) Mean Corpuscular Hemoglobin Concent 31g/dL (31-37) Red Cell Distribution Width 16.5% (11.5-14.5) Platelet Count 361x10^3/uL (140-400) Neutrophils (%) (Auto) 59% (31-73) Lymphocytes (%) (Auto) 28% (24-48) Monocytes (%) (Auto) 6% (0-9) Eosinophils (%) (Auto) 6% (0-3) Basophils (%) (Auto) 1% (0-3) Neutrophils # (Auto) 3.7x10^3uL (1.8-7.7) Lymphocytes # (Auto) 1.8x10^3/uL (1.0-4.8) Monocytes # (Auto) 0.4x10^3/uL (0.0-1.1) Eosinophils # (Auto) 0.4x10^3/uL (0.0-0.7) Basophils # (Auto) 0.1x10^3/uL (0.0-0.2) Sodium Level 144mmol/L (136-145) Potassium Level 4.1mmol/L (3.5-5.1) Chloride Level 106mmol/L (98-107) Carbon Dioxide Level 30mmol/L (21-32) Anion Gap 8 (6-14) Blood Urea Nitrogen 13mg/dL (7-20) Creatinine 1.1mg/dL (0.6-1.0) Estimated GFR (Cockcroft-Gault) 57.7 Glucose Level 88mg/dL (70-99) Calcium Level 10.3mg/dL (8.5-10.1) Medications Current Medications Fentanyl Citrate (Fentanyl 2ml Vial) 25 mcg PRN Q15MIN PRN IV PAIN GREATER THAN 3/10 Last administered on 07/05/16 12:45; Start 07/05/16 at 12:30; Stop at 12:29; Status DC Ondansetron HCl (Zofran) 4 mg PRN Q8HRS PRN IV NAUSEA/VOMITING; Start 07/05/16 at 14:30; Stop 07/06/16 at 14:29; Status DC Fentanyl Citrate (Fentanyl 2ml Vial) 50 mcg PRN Q2HR PRN IV PAIN Last administered on 07/06/16 13:32; Start 07/05/16 at 14:30; Stop 07/06/16 at 14:29 ; Status DC Acetaminophen 650 mg 650 mg PRN Q4HRS PRN PO FEVER Last administered on 13:32; Start 07/05/16 at 14:30; Stop 07/06/16 at 14:29; Status DC Heparin Sodium/ Dextrose 500 ml @ 0 mls/hr CONT PRN IV SEE I/O RECORD Last administered on 07/08/16 20:47; Start 07/05/16 at 14:45 Heparin Sodium (Porcine) 2,450 unit PRN Q6HRS PRN IV FOR UFH LEVEL LESS THAN 0.2 Last administered on 07/05/16 16:27; Start 07/05/16 at 14:45 Heparin Sodium (Porcine) 1,200 unit PRN Q6HRS PRN IV FOR UFH LEVEL 0.2 - 0.29; Start 07/05/16 at 14:45 Furosemide (Lasix) 20 mg DAILY PO Last administered on 07/08/16 08:59; Start 07/06/16 at 09:00 Polysaccharide Iron Complex (Niferex 150) 150 mg DAILY PO Last administered on 07/08/16 08:59; Start 07/06/16 at 09:00 Carbidopa/Levodopa (Sinemet Cr) 2 tab.sa TID PO Last administered on 07/08/16 20:42; Start 07/05/16 at 21:00 Vitamin D (Vitamin D3) 1,000 unit DAILY PO Last administered on 07/08/16 08:59 ; Start 07/06/16 at 09:00 Paricalcitol (Zemplar) 1 mcg DAILY PO Last administered on 07/08/16 08:59; Start 07/06/16 at 09:00 Allopurinol (Zyloprim) 300 mg DAILY PO Last administered on 07/08/16 08:59; Start 07/06/16 at 09:00 Ropinirole HCl 0.25 mg 0.25 mg TID PO Last administered on 07/08/16 20:42; Start 07/06/16 at 09:30 Iron Sucrose/ Sodium Chloride (Venofer/Iv Sodium Chloride 0.9% 100ml) 110 ml @ 55 mls/hr 1X ONCE IV Last administered on 07/06/16 22:18; Start 07/06/16 at 17:00; Stop 07/06/16 at 18:59; Status DC Info (Anti-Coagulation Monitoring By Pharmacy) 1 each PRN DAILY PRN MC SEE COMMENTS Last administered on 07/08/16 14:15; Start 07/07/16 at 13:30 Hydrochlorothiazide (Hydrodiuril) 25 mg DAILY PO Last administered on 18:21; Start 07/08/16 at 16:45 Active Scripts Active Reported Ferrex 150 (Iron Polysaccharides Complex) 150 Mg Capsule 150 Mg PO DAILY Sinemet Cr 50-200 Tablet (Carbidopa/Levodopa) 1 Each Tablet.er 1 Tab PO TID Allopurinol 300 Mg Tablet 1 Tab PO DAILY Furosemide 20 Mg Tablet 20 Mg PO DAILY Cholecalciferol (Cholecalciferol (Vitamin D3)) 1 Gm Crystals 1 Gm MC DAILY Zemplar (Paricalcitol) 2 Mcg Capsule 1 Mcg PO DAILY Vitals/I & O Vital Sign - Last 24 Hours 07/08/16 07/08/16 07/08/16 07/08/16 11:12 15:08 19:00 20:00 Temp 98.0 97.6 97.5 98.0 97.6 97.5 Pulse 88 79 77 Resp B/P 154/99 115/70 139/60 Pulse Ox 94 96 93 O2 Delivery Room Air Room Air Room Air Room Air 07/08/16 07/09/16 07/09/16 22:54 03:00 07:00 Temp 98.1 96.6 97.7 98.1 96.6 97.7 Pulse 73 86 75 Resp 18 B/P 121/63 119/66 122/72 Pulse Ox 95 97 97 O2 Delivery Room Air Room Air Room Air Intake and Output 07/08/16 07/08/16 07/09/16 15:00 23:00 07:00 Intake Total 600 ml 360 ml Output Total 2 ml Balance 600 ml 358 ml Deejay MACK MD Jul 09, 2016 08:35
[2016-07-09] MEDS ORDERED: ANTI-COAG MONITOR BY PHARMACY. MC PRN (09:30)
[2016-07-09] MEDS: ALLOPURINOL 300 MG TABLET. PO SCH (09:33)
[2016-07-09] MEDS: CARBIDOPA/LEVODOPA CR 25/100MG TABLET.SA PO SCH ×3 (09:33→21:31)
[2016-07-09] MEDS: HYDROCHLOROTHIAZIDE 25 MG TABLET PO SCH (09:33)
[2016-07-09] MEDS: rOPINIRole 0.25 MG TABLET. PO SCH ×3 (09:33→21:31)
[2016-07-09] MEDS: PARICALCITOL 1 MCG CAPSULE PO SCH (09:33)
[2016-07-09] MEDS: CHOLECALCIFEROL (VITAMIN D3) 1,000 UNIT TABLET PO SCH (09:33)
[2016-07-09] MEDS: FUROSEMIDE 20 MG TABLET PO SCH (09:33)
[2016-07-09] MEDS: PANTOPRAZOLE 40 MG TABLET. PO SCH (09:37)
[2016-07-09 11:12] VITALS: BP 113/68
[2016-07-09] MEDS: RIVAROXABAN 15 MG TABLET. PO SCH ×2 (12:10→17:02)
[2016-07-09 14:59] VITALS: BP 124/68
[2016-07-09] MEDS ORDERED: HEPARIN for IV BOLUS 10,000 UNIT/10 ML VIAL. IV PRN ×2 (18:30)
[2016-07-09] MEDS ORDERED: HEPARIN 25,000UTS/500ML PREMIX 500 ML IV PRN (18:30)
[2016-07-09 19:59] VITALS: BP 124/59
[2016-07-09 23:38] VITALS: BP 151/70
[2016-07-10 03:59] VITALS: BP 132/75
[2016-07-10] MEDS: PANTOPRAZOLE 40 MG TABLET. PO SCH (06:46)
[2016-07-10 07:00] VITALS: BP 113/55
[2016-07-10] MEDS: PARICALCITOL 1 MCG CAPSULE PO SCH (08:33)
[2016-07-10] MEDS: rOPINIRole 0.25 MG TABLET. PO SCH ×2 (08:33→14:04)
[2016-07-10] MEDS: HYDROCHLOROTHIAZIDE 25 MG TABLET PO SCH (08:33)
[2016-07-10] MEDS: CHOLECALCIFEROL (VITAMIN D3) 1,000 UNIT TABLET PO SCH (08:33)
[2016-07-10] MEDS: ALLOPURINOL 300 MG TABLET. PO SCH (08:33)
[2016-07-10] MEDS: CARBIDOPA/LEVODOPA CR 25/100MG TABLET.SA PO SCH ×2 (08:33→14:04)
[2016-07-10] MEDS: FUROSEMIDE 20 MG TABLET PO SCH (08:33)
[2016-07-10] MEDS: RIVAROXABAN 15 MG TABLET. PO SCH (08:33)
[2016-07-10 11:00] VITALS: BP 102/60
[2016-07-10] MEDS ORDERED: PANT40TA5 PO (12:47)
[2016-07-10] MEDS ORDERED: ROPI0.25 PO (12:47)
[2016-07-10] MEDS ORDERED: RIVA15TA PO (12:47)
[2016-07-10 15:00] VITALS: BP 112/70
--- NOTE | 2016-07-10 17:18 | PDOC3 ---
Discharge Summary Visit Information Date of Admission: Jul 05, 2016 Date of Discharge: Jul 10, 2016 Final Diagnosis Problems Medical Problems: (1) DVT (deep venous thrombosis) Status: Acute (2) Weakness generalized Status: Acute Brief Hospital Course Allergies Allergies Coded Allergies Type Severity Reaction Last Updated Verified No Known Drug Allergies 06/23/16 No Vital Signs Vital Signs Date Time Temp Pulse Resp B/P Pulse Ox O2 Delivery O2 Flow Rate FiO2 07/10/16 15:00 97.9 76 16 112/70 93 Room Air 97.9 Lab Results Laboratory Tests Test 07/09/16 04:54 07/09/16 18:40 White Blood Count 6.4x10^3/uL (4.0-11.0) Red Blood Count 5.08x10^6/uL (3.50-5.40) Hemoglobin 9.4g/dL (12.0-15.5) Hematocrit 30.8% (36.0-47.0) Mean Corpuscular Volume 61fL (79-100) Mean Corpuscular Hemoglobin 19pg (25-35) Mean Corpuscular Hemoglobin Concent 31g/dL (31-37) Red Cell Distribution Width 16.5% (11.5-14.5) Platelet Count 361x10^3/uL (140-400) Neutrophils (%) (Auto) 59% (31-73) Lymphocytes (%) (Auto) 28% (24-48) Monocytes (%) (Auto) 6% (0-9) Eosinophils (%) (Auto) 6% (0-3) Basophils (%) (Auto) 1% (0-3) Neutrophils # (Auto) 3.7x10^3uL (1.8-7.7) Lymphocytes # (Auto) 1.8x10^3/uL (1.0-4.8) Monocytes # (Auto) 0.4x10^3/uL (0.0-1.1) Eosinophils # (Auto) 0.4x10^3/uL (0.0-0.7) Basophils # (Auto) 0.1x10^3/uL (0.0-0.2) Sodium Level 144mmol/L (136-145) Potassium Level 4.1mmol/L (3.5-5.1) Chloride Level 106mmol/L (98-107) Carbon Dioxide Level 30mmol/L (21-32) Anion Gap 8 (6-14) Blood Urea Nitrogen 13mg/dL (7-20) Creatinine 1.1mg/dL (0.6-1.0) Estimated GFR (Cockcroft-Gault) 57.7 Glucose Level 88mg/dL (70-99) Calcium Level 10.3mg/dL (8.5-10.1) Heparin Anti-Xa Act, Unfractionated > 1.10IU/mL (0.30-0.70) Laboratory Tests Test 07/09/16 18:40 Heparin Anti-Xa Act, Unfractionated > 1.10IU/mL (0.30-0.70) Brief Hospital Course Ms. Krishnamurthy is a 81 old [sex] who presented with acute pain and swelling in upper right leg and found to have and extensive DVT and admitted on Heparin. She was on Aspirin 325 mg prior to admission due to a hx of left leg DVT but in January 2016 she had heme positive stool and rectal bright red bleeding so her Xarelto was stopped and she was started on only ASA. She previously had a GI bleed but has not had any recent GI symptoms. She does have Parkingsons and has had more "freezing" spells and been less active but claims she does not just sit around the house all day. He initial leg pain kept her bedridden but she is now up with therapy. PT and OT both recommended SNU time and she is agreeable to transfer. She has elected to go back on Xarelto. Protonix has been added to help with GI bleed prophylaxis. Ropinerole has been added to see if her overall Parkinsons is improved Discharge Information Follow Up: Weeks (1-2 weeks after SNU discharge) Disposition/Orders: D/C to Another Facility Scheduled Allopurinol (Allopurinol) 1 TAB PO DAILY (Reported) Carbidopa/Levodopa (Sinemet Cr 50-200 Tablet) 1 TAB PO TID (Reported) Cholecalciferol (Vitamin D3) (Cholecalciferol) 1 GM MC DAILY (Reported) Furosemide (Furosemide) 20 MG PO DAILY (Reported) Pantoprazole Sodium (Pantoprazole Sodium) 40 MG PO DAILYAC Paricalcitol (Zemplar) 1 MCG PO DAILY (Reported) Rivaroxaban (Xarelto) 15 MG PO BIDWMEALS Ropinirole Hcl (Requip) 0.25 MG PO TID Discontinued Medications Aspirin (Aspirin) 1 TAB PO DAILY (Reported) Iron Polysaccharides Complex (Ferrex 150) 150 MG PO DAILY (Reported) Patient Instructions Patient Instructions xarelto 15 mg bid x 2 weeks then change to 20 mg dailt, Protonix 40 mg daily started, ropinerole 0.25 mg 1 tid added with gradually increaasing dose if needed. Aspirin 325 mg is stopped, she will continue other prehospitalization meds Deejay MACK MD Jul 10, 2016 17:18
== END 2016-07-10 15:44 | DRG 300 ==
LOC: ER 11:20 → ED HOLD 14:20 → 5 NORTH 16:20
PROVIDERS: ADMIT Family Medicine; ATTEND Family Medicine
DX: I82.4Y1 Acute embolism and thrombosis of unspecified deep veins of right proximal lower extremity (principal); E46 Unspecified protein-calorie malnutrition; G20 Parkinson's disease; I12.9 Hypertensive chronic kidney disease with stage 1 through stage 4 chronic kidney disease, or unspecified chronic kidney disease; M10.9 Gout, unspecified; N18.9 Chronic kidney disease, unspecified; Z79.82 Long term (current) use of aspirin; Z86.718 Personal history of other venous thrombosis and embolism; Z91.81 History of falling; Z90.49 Acquired absence of other specified parts of digestive tract; Z68.29 Body mass index [BMI] 29.0-29.9, adult; Z98.49 Cataract extraction status, unspecified eye
CPT/HCPCS: 36415; 80048; 80076; 81001; 83540; 83550; 83690; 85007; 85027; 85520; 85610; 85730; 93970; 96374; 96375; J1756; J3010; 97110; 97530; 99285-25

== ENCOUNTER 2016-10-10 20:55 | Emergency (ER) | payer MEDICARE, OTHER ==
[~2016-10-10] VITALS: Ht 162.6 cm; Wt 81.6 kg
[~2016-10-10 20:55] MED LIST changes: +IRON150C15 PO; -IRON150C3 PO; +PANT40TA5 PO; +RIVA15TA PO; +ROPI0.25 PO
--- NOTE | 2016-10-10 21:27 | ED.ADGEN ---
Past Medical History Past Medical History: DVT, Other Additional Past Medical Histor: parkinsons Past Surgical History: Cholecystectomy Additional Past Surgical Histo: cataract,gout, IVC filter Alcohol Use: None Drug Use: None Adult General Chief Complaint Chief Complaint: Congestion HPI HPI Patient is a 81 year old female with history of DVT currently on Xarelto presents with nasal congestion, epistaxis starting earlier today. Patient also reports spitting up swallowed blood. Denies dizziness lightheadedness, dysphagia , chest pain shortness of breath, bloody stools or dark tarry stools. Review of Systems Review of Systems Review symptoms as per history of present illness. All other review symptoms are negative. Current Medications Current Medications Current Medications Medications (Trade) Dose Ordered Sig/Kishan Start Time Stop Time Status Last Admin Dose Admin Benzonatate (Tessalon Perle) 100 mg 1X ONCE 10/10/16 22:30 10/10/16 22:31 UNV Oxymetazoline HCl (Afrin) 2 spray 1X ONCE 10/10/16 21:30 10/10/16 21:31 DC 10/10/16 21:35 2 SPRAY Tranexamic Acid (Cyklokapron) 1,000 mg 1X ONCE 10/10/16 22:30 10/10/16 22:31 UNV Allergies Allergies Allergies Coded Allergies Type Severity Reaction Last Updated Verified No Known Drug Allergies 09/23/16 No Physical Exam Physical Exam Constitutional: Well developed, well nourished, no acute distress, non-toxic appearance. HENT: Normocephalic, atraumatic, bilateral external ears normal, oropharynx moist, no oral exudates, nose, bright red blood in nasal passages, no active bleeding. Eyes: PERRL. Neck: Normal range of motion, no tenderness, supple. Cardiovascular:Heart rate regular rhythm, no murmur. 1+ perform edema. Lungs & Thorax: Bilateral breath sounds clear to auscultation. Abdomen: Bowel sounds normal, soft, no tenderness, no masses, Skin: Warm, dry. Back: No midline tenderness. Extremities: No tenderness. Neurologic: Alert and oriented X 3, normal motor function, normal sensory function, no focal deficits noted. Psychologic: Affect normal, judgement normal, mood normal. Current Patient Data Vital Signs Vital Signs Date Time Temp Pulse Resp B/P (MAP) Pulse Ox O2 Delivery O2 Flow Rate FiO2 10/10/16 21:02 98.3 91 12 141/73 (95) 96 Room Air 98.3 Lab Values Laboratory Tests Test 10/10/16 21:45 White Blood Count 6.6 x10^3/uL (4.0-11.0) Red Blood Count 4.81 x10^6/uL (3.50-5.40) Hemoglobin 9.3 g/dL (12.0-15.5) L Hematocrit 30.4 % (36.0-47.0) L Mean Corpuscular Volume 63 fL (79-100) L Mean Corpuscular Hemoglobin 19 pg (25-35) L Mean Corpuscular Hemoglobin Concent 31 g/dL (31-37) Red Cell Distribution Width 17.7 % (11.5-14.5) H Platelet Count 196 x10^3/uL (140-400) Neutrophils (%) (Auto) 55 % (31-73) Lymphocytes (%) (Auto) 34 % (24-48) Monocytes (%) (Auto) 7 % (0-9) Eosinophils (%) (Auto) 3 % (0-3) Basophils (%) (Auto) 1 % (0-3) Neutrophils # (Auto) 3.6 x10^3uL (1.8-7.7) Lymphocytes # (Auto) 2.2 x10^3/uL (1.0-4.8) Monocytes # (Auto) 0.5 x10^3/uL (0.0-1.1) Eosinophils # (Auto) 0.2 x10^3/uL (0.0-0.7) Basophils # (Auto) 0.1 x10^3/uL (0.0-0.2) Platelet Estimate Pending Sodium Level 142 mmol/L (136-145) Potassium Level 4.1 mmol/L (3.5-5.1) Chloride Level 105 mmol/L (98-107) Carbon Dioxide Level 29 mmol/L (21-32) Anion Gap 8 (6-14) Blood Urea Nitrogen 23 mg/dL (7-20) H Creatinine 1.4 mg/dL (0.6-1.0) H Estimated GFR (Cockcroft-Gault) 43.7 BUN/Creatinine Ratio 16 (6-20) Glucose Level 91 mg/dL (70-99) Calcium Level 9.2 mg/dL (8.5-10.1) Total Bilirubin 0.5 mg/dL (0.2-1.0) Aspartate Amino Transferase (AST) 15 U/L (15-37) Alanine Aminotransferase (ALT) 10 U/L (14-59) L Alkaline Phosphatase 57 U/L (46-116) Total Protein 7.5 g/dL (6.4-8.2) Albumin 3.2 g/dL (3.4-5.0) L Albumin/Globulin Ratio 0.7 (1.0-1.7) L Laboratory Tests 10/10/16 21:45 Laboratory Tests 10/10/16 21:45 EKG EKG [] Radiology/Procedures Radiology/Procedures [] Course & Med Decision Making Course & Med Decision Making Pertinent Labs and Imaging studies reviewed. (See chart for details) [Afrin nasal spray applied with light bleeding. TXA applied for residual bleeding. No further bleeding observed. ] Dragon Disclaimer Dragon Disclaimer This electronic medical record was generated, in whole or in part, using a voice recognition dictation system. YENFIER DANIELLE DO October 10, 2016 21:27
[2016-10-10] MEDS ORDERED: OXYMETAZOLINE 0.05% NASAL SPRAY 30ML BOTTLE. NS ONE (21:30)
[2016-10-10 21:55] LABS: BASO # 0.1 x10^3/uL (0.0-0.2); BASO % 1 % (0-3); EOS % 3 % (0-3); HEMATOCRIT 30.4 % (36.0-47.0); HEMOGLOBIN 9.3 g/dL (12.0-15.5); LYMPH # 2.2 x10^3/uL (1.0-4.8); LYMPH % 34 % (24-48); MEAN CORPUSCULAR HEMOGLOBIN 19 pg (25-35); MEAN CORPUSCULAR HGB CONC 31 g/dL (31-37); MEAN CORPUSCULAR VOLUME 63 fL (79-100); MONO % 7 % (0-9); NEUT % 55 % (31-73); PLATELET COUNT 196 x10^3/uL (140-400); RED BLOOD COUNT 4.81 x10^6/uL (3.50-5.40); RED CELL DISTRIBUTION WIDTH 17.7 % (11.5-14.5); WHITE BLOOD COUNT 6.6 x10^3/uL (4.0-11.0)
[2016-10-10 22:11] LABS: CALCIUM 9.2 mg/dL (8.5-10.1); CREATININE 1.4 mg/dL (0.6-1.0); GFR 43.7; POTASSIUM 4.1 mmol/L (3.5-5.1)
[2016-10-10 22:16] LABS: ALBUMIN 3.2 g/dL (3.4-5.0); ALBUMIN/GLOBULIN RATIO 0.7 (1.0-1.7); TOTAL BILIRUBIN 0.5 mg/dL (0.2-1.0); TOTAL PROTEIN 7.5 g/dL (6.4-8.2)
[2016-10-10 22:30] VITALS: BP 135/72
[2016-10-10] MEDS ORDERED: TRANEXAMIC ACID 1,000 MG/10 ML VIAL. TOP ONE (22:30)
[2016-10-10] MEDS ORDERED: BENZONATATE 100 MG CAPSULE. PO ONE (22:30)
[2016-10-10 22:43] LABS: INR 2.2 (0.8-1.1); PROTHROMBIN TIME PATIENT 23.3 SEC (11.7-14.0)
[2016-10-10 23:00] LABS: HYPOCHROMIA MOD; MICROCYTOSIS MOD; OVALOCYTES OCC; PLT ESTIMATE ADEQUATE (ADEQUATE); POIKILOCYTOSIS SLIGHT; SPHEROCYTES OCC; TARGET CELLS FEW; TEAR DROP CELLS OCC
--- NOTE | 2016-10-11 08:24 | RAD ---
Indication: Short of air and cough. Epistaxes. Technique: Upright portable chest radiograph was obtained and compared to a study from June 12, 2015. Findings: There is no airspace disease. The heart is not enlarged. The pulmonary vasculature may be mildly cephalized. There is atheromatous disease in the thoracic aorta. There are degenerative changes in the shoulders. There are clips in the right upper quadrant. Impression: Mild vascular congestion may be present. There is no airspace disease.
== END 2016-10-10 23:00 | disposition home or self-care (01) ==
LOC: ER 20:55
DX: R04.0 Epistaxis (principal); M10.9 Gout, unspecified; Z86.718 Personal history of other venous thrombosis and embolism
CPT/HCPCS: 36415; 71010; 71020; 80053; 85007; 85027; 85610; 99285-25

== ENCOUNTER 2016-11-07 22:03 | Emergency (ER) | payer MEDICARE, OTHER ==
[~2016-11-07] VITALS: Ht 165.1 cm; Wt 81.6 kg
[~2016-11-07 22:03] MED LIST changes: +ASPI-618 PO; +ASPI-630 PO; -ASPI325T4 PO; +ASPI325T8 PO; -ASPI81TA2 PO; -HYDR-2666 PO; +HYDR-2758 PO; -LEVO500T38 PO; +LEVO500T59 PO; -[UNRECOGNIZED DRUG - CODE] PO
[2016-11-07] MEDS ORDERED: HYDROcodone/APAP 5/325MG 1 TAB TABLET PO ONE (23:00)
--- NOTE | 2016-11-07 23:37 | RAD ---
INDICATION: trauma, COMPARISON: March 12, 2015 TECHNIQUE: Axial CT images obtained through the head and face without intravenous contrast. One or more of the following individualized dose reduction techniques were utilized for this examination: 1. Automated exposure control; 2. Adjustment of the mA and/or kV according to patient size; 3. Use of iterative reconstruction technique. FINDINGS: No intracranial hemorrhage. No midline shift. Basal cisterns patent. Ventricles and sulci are prominent in size. No acute osseous abnormality. Scattered foci of low attenuation within the white matter. Nonspecific but can be seen with chronic small vessel ischemic disease. Facial: No definite acute fracture or dislocation. Right-sided facial hematoma IMPRESSION: 1. No acute intracranial hemorrhage. 2. Scattered foci of low-attenuation within white matter. Nonspecific but can be seen with chronic small vessel ischemic disease. 3. Right-sided facial hematoma Electronically signed by: Bharathi Moreno MD (11/07/2016 11:34 PM)
[2016-11-07 23:46] VITALS: BP 151/83
[2016-11-07] MEDS ORDERED: HYDR-971 PO (23:48)
--- NOTE | 2016-11-07 23:48 | PHYS DOC ---
Past Medical History Past Medical History: DVT, Other Additional Past Medical Histor: parkinsons Past Surgical History: Cholecystectomy Additional Past Surgical Histo: cataract,gout, IVC filter Alcohol Use: None Drug Use: None Adult General Chief Complaint Chief Complaint: FACE PROBLEM HPI HPI Patient is a 81 year old female who presents to the ER today secondary to facial trauma. Patient reports she was sitting in the stool was reaching down to pick something up and fell over and hit her face on the ledge of the bathtub. Patient reports that this occurred approximately noon time however she reports the swelling has been increasing so she concerning came to the ER. Patient reports she is on Zarontin for DVT. Patient denies any history of hypertension diabetes liver longer kidney problems. Patient reports she's had a cholecystectomy in the past. Patient does not smoke drink or do any drugs. Patient is not allergic to any medications. Patient denies any fevers shakes chills nausea vomiting or diarrhea. Patient denies any neck pain. Patient denies any loss of consciousness from the episode. Patient denies any headache. Patient has any double vision or blurred vision. Patient's physical exam is significant for a significant amount of soft tissue swelling/hematoma over the right periorbital region. Patient has no point bony tenderness. Patient has no malocclusion. Patient's pupils were equally round and reactive to light. Her extraocular motions were intact. Patient does not have any disconjugate gaze. Patient does not have any double vision on exam. Patient does not have any crepitus to palpation to the wound. Patient does not have any open lesions. Patient's tetanus status up-to-date. Assessment and plan 81-year-old female on the relatives who presents here today with facial hematoma secondary to trauma. Patient's ER workup has been unremarkable. Patient had a CT scan of her head and maxillofacial's which were negative for any acute fracture or intracranial pathology. Patient be discharged home with Lortab to assist with pain. Patient was instructed to utilize ice to help keep the swelling down. Patient was informed to return to the ER immediately if she has any double vision worsening headaches or any other concerns she may have. Review of Systems Review of Systems Constitutional: Denies fever or chills [] Eyes: Denies change in visual acuity, redness, or eye pain [] HENT: Denies nasal congestion or sore throat [] All other review systems are negative except as documented in the history of present illness portion. Current Medications Current Medications Current Medications Medications (Trade) Dose Ordered Sig/Kishan Start Time Stop Time Status Last Admin Dose Admin Acetaminophen/ Hydrocodone Bitart (Lortab 5/325) 1 tab 1X ONCE 11/07/16 23:00 11/07/16 23:01 DC 11/07/16 22:40 1 TAB Allergies Allergies Allergies Coded Allergies Type Severity Reaction Last Updated Verified No Known Drug Allergies 10/28/16 No Physical Exam Physical Exam Constitutional: Well developed, well nourished, no acute distress, non-toxic appearance. [] HENT: Normocephalic, atraumatic, bilateral external ears normal, oropharynx moist, no oral exudates, nose normal. [] Eyes: PERRLA, EOMI, conjunctiva normal, no discharge. [] Neck: Normal range of motion, no tenderness, supple, no stridor. [] Cardiovascular:Heart rate regular rhythm, no murmur [] Lungs & Thorax: Bilateral breath sounds clear to auscultation [] Abdomen: Bowel sounds normal, soft, no tenderness, no masses, no pulsatile masses. [] Skin: Warm, dry, no erythema, no rash. [] Back: No tenderness, no CVA tenderness. [] Extremities: No tenderness, no cyanosis, no clubbing, ROM intact, no edema. [] Neurologic: Alert and oriented X 3, normal motor function, normal sensory function, no focal deficits noted. [] Psychologic: Affect normal, judgement normal, mood normal. [] Current Patient Data Vital Signs Vital Signs Date Time Temp Pulse Resp B/P (MAP) Pulse Ox O2 Delivery O2 Flow Rate FiO2 11/07/16 23:46 88 16 151/83 (105) 98 Room Air 11/07/16 22:15 98.2 98.2 EKG EKG [] Radiology/Procedures Radiology/Procedures [] Course & Med Decision Making Course & Med Decision Making Pertinent Labs and Imaging studies reviewed. (See chart for details) [] Dragon Disclaimer Dragon Disclaimer This electronic medical record was generated, in whole or in part, using a voice recognition dictation system. Departure Departure Impression: Primary Impression: Head trauma Additional Impression: Periorbital ecchymosis of right eye Disposition: HOME, SELF-CARE Condition: IMPROVED Referrals: FATIMAH JACOB MD (PCP) Patient Instructions: Facial or Scalp Contusion, Head Injury, Adult Scripts Hydrocodone/Apap 5-325 (NORCO 5-325 TABLET) 1 Each Tablet 1 TAB PO QID Y for PAIN, #10 TAB Prov: CARLO ARELLANO MD 11/07/16 Problem Qualifiers CARLO ARELLANO MD Nov 07, 2016 23:48
== END 2016-11-08 00:08 | disposition home or self-care (01) ==
LOC: ER 22:03
DX: S00.11XA Contusion of right eyelid and periocular area, initial encounter (principal); S09.90XA Unspecified injury of head, initial encounter; M10.9 Gout, unspecified; Z98.49 Cataract extraction status, unspecified eye; G20 Parkinson's disease; Z90.49 Acquired absence of other specified parts of digestive tract; Z86.718 Personal history of other venous thrombosis and embolism; W08.XXXA Fall from other furniture, initial encounter; Y93.89 Activity, other specified; Y92.89 Other specified places as the place of occurrence of the external cause; Y99.8 Other external cause status
CPT/HCPCS: 70450; 70486; 99284-25

== ENCOUNTER 2018-08-13 15:52 | Inpatient (IN) | payer MEDICARE, OTHER ==
[~2018-08-13] VITALS: Ht 162.6 cm; Wt 78.2 kg
[~2018-08-13 15:52] MED LIST changes: -ASPI-618 PO; +ASPI-861 PO; +CHOL10003 PO; +FERR325T14 PO; -HYDR-2758 PO; +HYDR-2761 PO; +HYDR-3164 PO
[2018-08-13] MEDS ORDERED: ASPIRIN CHEWABLE 81 MG TABLET. PO ONE (16:00)
--- NOTE | 2018-08-13 16:12 | PHYS DOC ---
Past Medical History Past Medical History: DVT, Other Additional Past Medical Histor: parkinsons Past Surgical History: Cholecystectomy Additional Past Surgical Histo: cataract,gout, IVC filter Alcohol Use: None Drug Use: None Adult General Chief Complaint Chief Complaint: DIZZY/LIGHT HEADED HPI HPI Patient is a 83 year old female who presents with dizziness, lightheadedness, and near syncope. Patient had been standing, washing dishes for approximately 30 minutes when she started feeling lightheaded. Daughter helped her to a chair to sit down which did help with the symptoms. Patient did not actually pass out. Patient denies any chest pain. Denies any difficulty breathing. Denies any cough or fever.[] Review of Systems Review of Systems Constitutional: Denies fever or chills [] Eyes: Denies change in visual acuity, redness, or eye pain [] HENT: Denies nasal congestion or sore throat [] Respiratory: Denies cough or shortness of breath [] Cardiovascular: No chest pain or palpitations[] GI: Denies abdominal pain, nausea, vomiting, bloody stools or diarrhea [] : Denies dysuria or hematuria [] Musculoskeletal: Denies back pain or joint pain [] Integument: Denies rash or skin lesions [] Neurologic: Denies headache, focal weakness or sensory changes [] Endocrine: Denies polyuria or polydipsia [] All other systems were reviewed and found to be within normal limits, except as documented in this note. Current Medications Current Medications Current Medications Medications (Trade) Dose Ordered Sig/Kishan Start Time Stop Time Status Last Admin Dose Admin Aspirin (Children'S Aspirin) 324 mg 1X ONCE 08/13/18 16:00 08/13/18 16:08 DC 08/13/18 16:51 324 MG Allergies Allergies Allergies Coded Allergies Type Severity Reaction Last Updated Verified No Known Drug Allergies 08/09/18 No Physical Exam Physical Exam Constitutional: Well developed, well nourished, no acute distress, non-toxic appearance. [] HENT: Normocephalic, atraumatic, bilateral external ears normal, oropharynx moist, no oral exudates, nose normal. [] Eyes: PERRLA, EOMI, conjunctiva normal, no discharge. [] Neck: Normal range of motion, no tenderness, supple, no stridor. [] Cardiovascular:Heart rate regular rhythm, no murmur [] Lungs & Thorax: Bilateral breath sounds clear to auscultation [] Abdomen: Bowel sounds normal, soft, no tenderness, no masses, no pulsatile masses. [] Skin: Warm, dry, no erythema, no rash. [] Back: No tenderness, no CVA tenderness. [] Extremities: No tenderness, no cyanosis, no clubbing, ROM intact, no edema. [] Neurologic: Alert and oriented X 3, normal motor function, normal sensory function, no focal deficits noted. Resting tremor noted[] Psychologic: Affect normal, judgement normal, mood normal. [] Current Patient Data Vital Signs Vital Signs Date Time Temp Pulse Resp B/P (MAP) Pulse Ox O2 Delivery O2 Flow Rate FiO2 08/13/18 15:53 98.2 77 13 138/62 (87) 99 Room Air 98.2 Lab Values Laboratory Tests Test 08/13/18 16:45 White Blood Count 8.8 x10^3/uL (4.0-11.0) Red Blood Count 5.28 x10^6/uL (3.50-5.40) Hemoglobin 10.0 g/dL (12.0-15.5) L Hematocrit 32.6 % (36.0-47.0) L Mean Corpuscular Volume 62 fL (79-100) L Mean Corpuscular Hemoglobin 19 pg (25-35) L Mean Corpuscular Hemoglobin Concent 31 g/dL (31-37) Red Cell Distribution Width 17.4 % (11.5-14.5) H Platelet Count 256 x10^3/uL (140-400) Neutrophils (%) (Auto) 86 % (31-73) H Lymphocytes (%) (Auto) 10 % (24-48) L Monocytes (%) (Auto) 3 % (0-9) Eosinophils (%) (Auto) 0 % (0-3) Basophils (%) (Auto) 1 % (0-3) Neutrophils # (Auto) 7.6 x10^3uL (1.8-7.7) Lymphocytes # (Auto) 0.9 x10^3/uL (1.0-4.8) L Monocytes # (Auto) 0.3 x10^3/uL (0.0-1.1) Eosinophils # (Auto) 0.0 x10^3/uL (0.0-0.7) Basophils # (Auto) 0.0 x10^3/uL (0.0-0.2) Segmented Neutrophils % 79 % (35-66) H Band Neutrophils % 4 % (0-9) Lymphocytes % 11 % (24-48) L Monocytes % 4 % (0-10) Eosinophils % 1 % (0-5) Basophils % 1 % (0-3) Nucleated Red Blood Cells 1 Platelet Estimate Adequate (ADEQUATE) Polychromasia Slight Hypochromasia Marked Basophilic Stippling Present Anisocytosis Slight Microcytosis Marked Target Cells Few Ovalocytes Mod Schistocytes Few Prothrombin Time 13.7 SEC (11.7-14.0) Prothrombin Time INR 1.1 (0.8-1.1) Sodium Level 139 mmol/L (136-145) Potassium Level 4.0 mmol/L (3.5-5.1) Chloride Level 104 mmol/L (98-107) Carbon Dioxide Level 29 mmol/L (21-32) Anion Gap 6 (6-14) Blood Urea Nitrogen 21 mg/dL (7-20) H Creatinine 1.5 mg/dL (0.6-1.0) H Estimated GFR (Cockcroft-Gault) 40.1 BUN/Creatinine Ratio 14 (6-20) Glucose Level 128 mg/dL (70-99) H Calcium Level 9.4 mg/dL (8.5-10.1) Magnesium Level 2.1 mg/dL (1.8-2.4) Total Bilirubin 0.4 mg/dL (0.2-1.0) Aspartate Amino Transferase (AST) 15 U/L (15-37) Alanine Aminotransferase (ALT) 8 U/L (14-59) L Alkaline Phosphatase 58 U/L (46-116) Troponin I Quantitative 0.037 ng/mL (0.000-0.055) FO-Bzc-H-Type Natriuretic Peptide 687 pg/mL (0-449) H Total Protein 7.6 g/dL (6.4-8.2) Albumin 3.5 g/dL (3.4-5.0) Albumin/Globulin Ratio 0.9 (1.0-1.7) L Laboratory Tests 08/13/18 16:45 Laboratory Tests 08/13/18 16:45 EKG EKG EKG shows a sinus rhythm at 76 bpm, left axis deviation, left bundle branch block, QTC of 466 ms, no concordance, no significant discordance, when compared with EKG of 09/21/2011, patient had a left bundle branch block at that point however there was, according present in V5 and 6 which is now discordant. Interpreted by me at 1626[] Radiology/Procedures Radiology/Procedures TECHNIQUE: Portable upright frontal view of the chest is provided. FINDINGS: The cardiomediastinal silhouette is within normal limits. There are no pleural effusions. There is no pulmonary vascular congestion. There is no pneumothorax. The lungs are clear. No significant osseous abnormality is identified. IMPRESSION: No acute cardiopulmonary process.[] Course & Med Decision Making Course & Med Decision Making Pertinent Labs and Imaging studies reviewed. (See chart for details) ED course: Patient arrived, was placed in bed, and tolerated exam well. She was administered aspirin due to concern for cardiac etiology. After the return of the lab and imaging studies, these were discussed with the patient and her who voiced understanding. All questions were answered. Consultation was made with her primary care physician who graciously admitted her. Patient was admitted in improved condition. Medical decision making: Concerned about possible cardiac etiology for this near syncope and further story from daughter when she arrived that patient had some discomfort radiating into her neck. Both of those improved with rest as noted in the history of present illness. No evidence of a dysrhythmia while the patient has been on satellite project site monitor, no evidence of pneumonia, pneumothorax, PE , nor thoracic aneurysm dissection. No esophageal rupture.[] Dragon Disclaimer Dragon Disclaimer This electronic medical record was generated, in whole or in part, using a voice recognition dictation system. Departure Departure Impression: Primary Impression: Near syncope Disposition: ADMITTED INPATIENT Admitting Physician: Farshad Miles Condition: IMPROVED Referrals: FARSHAD MILES MD (PCP) CORY IZAGUIRRE DO Aug 13, 2018 16:12
--- NOTE | 2018-08-13 16:42 | RAD ---
Chest radiograph 08/13/2018 3:59 PM INDICATION: Near syncope COMPARISON: October 10, 2016 TECHNIQUE: Portable upright frontal view of the chest is provided. FINDINGS: The cardiomediastinal silhouette is within normal limits. There are no pleural effusions. There is no pulmonary vascular congestion. There is no pneumothorax. The lungs are clear. No significant osseous abnormality is identified. IMPRESSION: No acute cardiopulmonary process. Electronically signed by: Tyra Perea MD (08/13/2018 4:39 PM) [facility] [place]
[2018-08-13 16:55] LABS: BASO % 1 % (0-3); EOS % 0 % (0-3); HEMATOCRIT 32.6 % (36.0-47.0); LYMPH # 0.9 x10^3/uL (1.0-4.8); LYMPH % 10 % (24-48); MEAN CORPUSCULAR HEMOGLOBIN 19 pg (25-35); MEAN CORPUSCULAR HGB CONC 31 g/dL (31-37); MEAN CORPUSCULAR VOLUME 62 fL (79-100); MONO # 0.3 x10^3/uL (0.0-1.1); MONO % 3 % (0-9); NEUT # 7.6 x10^3uL (1.8-7.7); NEUT % 86 % (31-73); PLATELET COUNT 256 x10^3/uL (140-400); RED BLOOD COUNT 5.28 x10^6/uL (3.50-5.40); RED CELL DISTRIBUTION WIDTH 17.4 % (11.5-14.5); WHITE BLOOD COUNT 8.8 x10^3/uL (4.0-11.0)
[2018-08-13 16:58] LABS: CALCIUM 9.4 mg/dL (8.5-10.1); CREATININE 1.5 mg/dL (0.6-1.0); GFR 40.1
[2018-08-13 16:59] LABS: PROTHROMBIN TIME PATIENT 13.7 SEC (11.7-14.0)
[2018-08-13 17:04] LABS: ALBUMIN 3.5 g/dL (3.4-5.0); ALBUMIN/GLOBULIN RATIO 0.9 (1.0-1.7); MAGNESIUM 2.1 mg/dL (1.8-2.4); TOTAL BILIRUBIN 0.4 mg/dL (0.2-1.0); TOTAL PROTEIN 7.6 g/dL (6.4-8.2)
[2018-08-13 17:24] LABS: % BANDS 4 % (0-9); % BASOS 1 % (0-3); % EOS 1 % (0-5); % LYMPHS 11 % (24-48); % MONOS 4 % (0-10); % SEGS 79 % (35-66); NUCLEATED RBC 1
[2018-08-13 17:25] LABS: ANISOCYTOSIS SLIGHT; HYPOCHROMIA MARKED; MICROCYTOSIS MARKED; OVALOCYTES MOD; PLT ESTIMATE ADEQUATE (ADEQUATE); POLYCHROMASIA SLIGHT; TARGET CELLS FEW
[2018-08-13 17:26] LABS: SCHISTOCYTES FEW
[2018-08-13] MEDS ORDERED: ONDANSETRON PF 4 MG/2 ML VIAL. IV PRN (17:45)
[2018-08-13] MEDS ORDERED: ACETAMINOPHEN 325 MG TABLET. PO PRN (17:45)
[2018-08-13] MEDS ORDERED: NITROGLYCERIN SUBLINGUAL 0.4 MG BOTTLE OF 25. SL PRN (17:45)
[2018-08-13 19:05] VITALS: BP 163/84
[2018-08-13] MEDS: CARBIDOPA/LEVODOPA CR 25/100MG TABLET.SA. PO SCH (21:54)
[2018-08-13 22:43] VITALS: BP 125/64
[2018-08-14] VITALS (10 sets, daily range): BP systolic 119–174; BP diastolic 61–94
[2018-08-14 00:28] LABS: BILIRUBIN,URINE NEGATIVE (NEG); CLARITY,URINE CLEAR; COLOR,URINE YELLOW; NITRITE,URINE NEGATIVE (NEG); PH,URINE 5.5; PROTEIN,URINE NEGATIVE (NEG-TRACE); UROBILINOGEN,URINE 0.2 mg/dL (0.2 mg/dL)
[2018-08-14 00:40] LABS: BACTERIA,URINE FEW /HPF (0-FEW); HYALINE CASTS, URINE FEW /HPF; RBC,URINE OCC /HPF (0-2); SQUAMOUS EPITHELIAL CELL,UR FEW /LPF
[2018-08-14 08:12] LABS: CHOLESTEROL/HDL RATIO 2.3
[2018-08-14] MEDS: CARBIDOPA/LEVODOPA CR 25/100MG TABLET.SA. PO SCH ×3 (10:14→20:37)
[2018-08-14] MEDS ORDERED: NITROGLYCERIN OINT 1 GM PACKET. TP ONE (10:30)
[2018-08-14] MEDS: ASPIRIN 325 MG TABLET PO SCH (10:55)
[2018-08-14] MEDS: CHOLECALCIFEROL (VITAMIN D3) 1,000 UNIT TABLET PO SCH (10:55)
[2018-08-14] MEDS: FUROSEMIDE 20 MG TABLET PO SCH (10:55)
[2018-08-14] MEDS: FERROUS SULFATE 325 MG TABLET. PO SCH (10:55)
[2018-08-14] MEDS: amLODIPine BESYLATE 5 MG TABLET PO SCH (10:56)
[2018-08-14] MEDS ORDERED: MAGNESIUM HYDROXIDE 2,400 MG/30 ML ORAL.SUSP. PO PRN (11:00)
--- NOTE | 2018-08-14 11:13 | PDOC ---
Provider Note Provider Note history and physical dictated # [id number] ELI ROSALES MD Aug 14, 2018 11:13
--- NOTE | 2018-08-14 11:42 | HP ---
ADMIT DATE: 08/14/2018 LOCATION: She is in room 202. HISTORY OF PRESENT ILLNESS: The patient is an 83-year-old -[place] female who has a history of chronic kidney disease stage 3 and anemia of chronic disease as well as Parkinson disease who was standing up washing the dishes for about 30 minutes when she became dizzy and lightheaded and had a near syncopal episode. She sat down with assistance of her daughter and her symptoms passed and she denied any chest pain or shortness of breath. Denies any nausea, vomiting, melena, hematochezia or palpitations. She sought help in the [facility] Emergency Room where she was hemodynamically stable. Since admission, her blood pressure has been elevated, however. She does have a history of hypertension, but currently does not take any antihypertensive medications. She does take furosemide 20 mg p.o. daily for chronic venous insufficiency. She was told to increase it to 20 mg morning and 10 mg in the p.m. in the past, but said she did not feel well doing that, so she is currently taking 20 mg every day only. She also has a history of chronic gout, but apparently she was told by her memory care director to stop the allopurinol, and so we will check a uric acid level today. She denies any recent gout, synovitis. She mentioned that a week ago that she was sitting at the side of bed, getting ready for bed and she had 4 episodes of chest discomfort, each lasting less than one minute. She denies any recurrence of that since that time. She does have Parkinson disease for which she takes Sinemet and uses a cane in the home and a walker in the community. Her EKG showed a left bundle branch block, but I cannot locate the EKG and according to the ER doctor it is unchanged. She was admitted to [facility] on 08/13/2018 for evaluation of a near syncopal episode. ALLERGIES AND INTOLERANCES: None. MEDICATIONS PRIOR TO ADMISSION: Aspirin 325 mg every day, ferrous sulfate 325 mg every day. She is on Procrit 10,000 units every 2 weeks, Sinemet 50/200 one tablet t.i.d., vitamin D 2000 units every day and furosemide 20 mg every day. PAST MEDICAL HISTORY: Significant for chronic kidney disease stage 3. Serum creatinine was 1.2 in the office on 06/28/2018, but the range has been anywhere from 1.1-1.4. She also has anemia of chronic disease. Her hemoglobin was 9.9 on 06/28/2018 and is around 10 now. She has a history of Parkinson disease, history of chronic gout, but off of allopurinol. She had a ferritin level that was 498 in 06/2018. She had a history of chronic venous insufficiency of the lower extremities. She has a history of thalassemia minor. She had a laparoscopic cholecystectomy in 2015. She had a deep vein thrombosis of the left leg in 2012, an inferior vena cava filter was placed at that time. SOCIAL HISTORY: She does not drink alcohol nor does she smoke cigarettes. She lives with her daughter. She uses a cane at home and a walker in the community. FAMILY HISTORY: Not contributory. REVIEW OF SYSTEMS: GENERAL: She denies any fever, chills or sweats in the last 3 days. CARDIOVASCULAR: She had chest pain a week ago as mentioned above. PULMONARY: No shortness of breath. GASTROINTESTINAL: Bowels are okay. ENDOCRINE: No diabetes mellitus. SKIN: No rashes. The rest of systems reviewed are negative except as stated in history of present illness. PHYSICAL EXAMINATION: VITAL SIGNS: The temperature is 98.3 degrees, apical pulse 78, respiratory rate 18, last blood pressure was 174 systolic. Her oxygen saturation is 96% on room air. HEENT: Eyes: Gaze is conjugate. Extraocular muscles are intact. Mouth: Tongue is midline. NECK: There is no cervical lymphadenopathy or thyroid enlargement. HEART: Reveals an S1, S2. There is no S3 or murmur. LUNGS: Clear. ABDOMEN: Soft, nontender with no hepatosplenomegaly, masses or tenderness. EXTREMITIES: Lower extremities reveal trace edema in the pretibial area. She does have some edema in the feet. SKIN: No rashes. NEUROLOGIC: Revealed no focal weakness of the extremities or facial asymmetry. LABORATORY DATA: The white count was 8.8, hemoglobin 10 with an MCV of 62 and her platelet count 356,000. She had 86 polys and 10 lymphocytes. Her RBCs were normal at 5.28. This profile seems to be more consistent with thalassemia minor. Her INR is 1.1. Sodium 139, potassium 4.0, chloride 104, total CO2 was 29, BUN 21, creatinine 1.5, blood sugar is 128. Liver function tests normal. ProBNP was 687. Albumin 3.5. Total protein is 7.6. Urinalysis showed 1-4 white cells and occasional red blood cell. She had a chest x-ray done, which showed no acute abnormality. Heart size was normal. No pleural effusions, no pneumothorax. She had an electrocardiogram done per the ER doctor, it showed left bundle branch block unchanged, but I cannot find the actual EKG to review myself. It should be noted that troponin level is actually negative x 4. Her total cholesterol was 151, triglycerides 52, HDL was 66 and LDL was 75. ASSESSMENT: 1. Near syncope. Certainly we need to rule out an arrhythmia. Rule out a vasovagal type reaction. Rule out orthostatic hypotension. I doubt she had a pulmonary embolus. 2. Hypertension. 3. Chronic kidney disease stage 3. 4. Anemia of chronic disease. 5. Chronic gout. 6. Parkinson disease. 7. Chronic venous insufficiency of the lower extremities. 8. History of a deep vein thrombosis left lower extremity with an IVC filter placed in 2012. 9. Thalassemia minor. PLAN: At this time is to consult Dr. Rizvi for Cardiology. We will start her on amlodipine 5 mg every day for hypertension. We will check orthostatic blood pressures and I discussed that with the nurse. She is going to ambulate with a walker with assistance and see how she does. We will continue with telemetry. We will order an echocardiogram, order a venous Doppler of the lower extremities to rule out a deep vein thrombosis. We can start her on heparin 5000 units subQ every 12 hours to help prevent deep vein thrombosis while she is here. Repeat her CBC and BMP tomorrow. Check a magnesium level and a uric acid level also. She will get an echocardiogram and bilateral lower extremity venous Doppler. She will be seen by Dr. Rizvi. Continue with telemetry. ELI ROSALES MD DR: CHEKO/eri JOB#: [id number] / [id number]
[2018-08-14] MEDS: HEPARIN for SUB-Q USE 5,000 UNIT/ML VIAL. SQ SCH ×2 (12:25→20:41)
--- NOTE | 2018-08-14 15:53 | RAD ---
EXAMINATION: VENOUS LOWER EXT BILATERAL HISTORY: Swelling and pain COMPARISON/CORRELATION: None FINDINGS: Bilateral lower extremity duplex venous ultrasound exam was performed. Grayscale, color Doppler, and spectral Doppler imaging was performed. Compression and augmentation was performed. The right common femoral vein, superficial femoral vein, popliteal vein, and greater saphenous vein are normal with no evidence of deep venous thrombus. Normal compressibility and augmentation is evident. The left common femoral vein, superficial femoral vein, popliteal vein, and greater saphenous vein are normal with no evidence of deep venous thrombus. Normal compressibility and augmentation is evident. IMPRESSION: Normal bilateral lower extremity duplex ultrasound exam. No evidence of deep venous thrombus involving the lower extremities. Electronically signed by: Juwan Marquez MD (08/14/2018 3:50 PM) [facility]
--- NOTE | 2018-08-14 16:31 | PDOC2 ---
CONSULT Date of Consult Date of Consult DATE: 08/14/18 TIME: 16:26 Reason for Consult Reason for Consult: Near syncope Referring Physician Referring Physician: Dr. Miles Identification/Chief Complaint Chief Complaint Near syncopal episode Source Source: Chart review, Patient History of Present Illness Reason for Visit: The patient is an 83-year-old female with a history of parkinsonism who had a near syncopal episode at her home. She was brought to the emergency room for evaluation. Rhythm has remained sinus. Initial lab testing shows no severe abnormalities. Chest x-ray shows no acute process. The lower extremity ultrasound shows no DVTs. Patient has a history of chronic kidney disease, hypertension and a previous DVT for which an IVC filter was placed. This morning she is feeling significantly better. Past Medical History Cardiovascular: HTN (borderline hypertension) CENTRAL NERVOUS SYSTEM: Other (Parkinson's disease) Musculoskeletal: Osteoarthritis Renal/: Chronic renal insuff Past Surgical History Past Surgical History: Cholecystectomy, Other (IVC filter placement) Family History Family History: Hypertension Social History No ALCOHOL: none Current Problem List Problem List Problems Medical Problems: (1) Near syncope Status: Acute Current Medications Current Medications Current Medications Aspirin (Children'S Aspirin) 324 mg 1X ONCE PO Last administered on 08/13/18at 16:51; Start 08/13/18 at 16:00; Stop 08/13/18 at 16:08; Status DC Ondansetron HCl (Zofran) 4 mg PRN Q6HRS PRN IV NAUSEA/VOMITING; Start 08/13/18 at 17:45 Acetaminophen (Tylenol) 650 mg PRN Q6HRS PRN PO FEVER/HEADACHE; Start 08/13/18 at 17:45 Nitroglycerin (Nitrostat) 0.4 mg PRN Q5MIN PRN SL CHEST PAIN; Start 08/13/18 at 17:45 Aspirin (Michael Aspirin) 325 mg DAILYWBKFT PO Last administered on 08/14/18at 10: 55; Start 08/14/18 at 08:00 Vitamin D (Vitamin D3) 1,000 unit DAILY PO Last administered on 08/14/18at 10:55 ; Start 08/14/18 at 09:00 Ferrous Sulfate (Feosol) 325 mg DAILY PO Last administered on 08/14/18at 10:55; Start 08/14/18 at 09:00 Furosemide (Lasix) 20 mg DAILY PO Last administered on 08/14/18at 10:55; Start 08/14/18 at 09:00 Carbidopa/Levodopa (Sinemet Cr) 2 tab.sa TID PO Last administered on 08/14/18at 15:24; Start 08/13/18 at 21:45 Lactobacillus Rhamnosus (Culturelle) 1 cap BID PO ; Start 08/14/18 at 21:00; Status Cancel Nitroglycerin (Nitro-Bid Oint) 2 inch 1X ONCE TP ; Start 08/14/18 at 10:30; Stop 08/14/18 at 10:35; Status DC Amlodipine Besylate (Norvasc) 5 mg DAILY PO Last administered on 08/14/18at 10: 56; Start 08/14/18 at 11:00 Magnesium Hydroxide (Milk Of Magnesia) 2,400 mg PRN DAILY PRN PO CONSTIPATION; Start 08/14/18 at 11:00 Heparin Sodium (Porcine) (Heparin Sodium) 5,000 unit Q12HR SQ Last administered on 08/14/18at 12:25; Start 08/14/18 at 12:00 Active Scripts Active Reported Ferrous Sulfate 325 Mg Tablet 325 Mg PO DAILY Vitamin D3 (Cholecalciferol (Vitamin D3)) 1,000 Unit Tablet 1,000 Unit PO DAILY Aspirin 325 Mg Tablet 325 Mg PO DAILY Sinemet Cr 50-200 Tablet (Carbidopa/Levodopa) 1 Each Tablet.er 1 Tab PO TID Furosemide 20 Mg Tablet 20 Mg PO DAILY Allergies Allergies: Coded Allergies: No Known Drug Allergies (Unverified , 08/09/18) ROS General: YES: Fatigue Neurological: Yes Gait Disturbance Physical Exam General: No acute distress HEENT: Atraumatic Lungs: Clear to auscultation Heart: Regular rate Abdomen: Normal bowel sounds Vitals VITALS Vital Signs Date Time Temp Pulse Resp B/P (MAP) Pulse Ox O2 Delivery O2 Flow Rate FiO2 08/14/18 14:54 98.2 82 17 119/66 (83) 99 Room Air 98.2 Labs Labs Laboratory Tests Test 08/13/18 16:45 08/13/18 18:36 08/14/18 00:10 08/14/18 00:20 White Blood Count 8.8 x10^3/uL (4.0-11.0) Red Blood Count 5.28 x10^6/uL (3.50-5.40) Hemoglobin 10.0 g/dL (12.0-15.5) Hematocrit 32.6 % (36.0-47.0) Mean Corpuscular Volume 62 fL (79-100) Mean Corpuscular Hemoglobin 19 pg (25-35) Mean Corpuscular Hemoglobin Concent 31 g/dL (31-37) Red Cell Distribution Width 17.4 % (11.5-14.5) Platelet Count 256 x10^3/uL (140-400) Neutrophils (%) (Auto) 86 % (31-73) Lymphocytes (%) (Auto) 10 % (24-48) Monocytes (%) (Auto) 3 % (0-9) Eosinophils (%) (Auto) 0 % (0-3) Basophils (%) (Auto) 1 % (0-3) Neutrophils # (Auto) 7.6 x10^3uL (1.8-7.7) Lymphocytes # (Auto) 0.9 x10^3/uL (1.0-4.8) Monocytes # (Auto) 0.3 x10^3/uL (0.0-1.1) Eosinophils # (Auto) 0.0 x10^3/uL (0.0-0.7) Basophils # (Auto) 0.0 x10^3/uL (0.0-0.2) Segmented Neutrophils % 79 % (35-66) Band Neutrophils % 4 % (0-9) Lymphocytes % 11 % (24-48) Monocytes % 4 % (0-10) Eosinophils % 1 % (0-5) Basophils % 1 % (0-3) Nucleated Red Blood Cells 1 Platelet Estimate Adequate (ADEQUATE) Polychromasia Slight Hypochromasia Marked Basophilic Stippling Present Anisocytosis Slight Microcytosis Marked Target Cells Few Ovalocytes Mod Schistocytes Few Prothrombin Time 13.7 SEC (11.7-14.0) Prothromb Time International Ratio 1.1 (0.8-1.1) Sodium Level 139 mmol/L (136-145) Potassium Level 4.0 mmol/L (3.5-5.1) Chloride Level 104 mmol/L (98-107) Carbon Dioxide Level 29 mmol/L (21-32) Anion Gap 6 (6-14) Blood Urea Nitrogen 21 mg/dL (7-20) Creatinine 1.5 mg/dL (0.6-1.0) Estimated GFR (Cockcroft-Gault) 40.1 BUN/Creatinine Ratio 14 (6-20) Glucose Level 128 mg/dL (70-99) Calcium Level 9.4 mg/dL (8.5-10.1) Magnesium Level 2.1 mg/dL (1.8-2.4) Total Bilirubin 0.4 mg/dL (0.2-1.0) Aspartate Amino Transf (AST/SGOT) 15 U/L (15-37) Alanine Aminotransferase (ALT/SGPT) 8 U/L (14-59) Alkaline Phosphatase 58 U/L (46-116) Troponin I Quantitative 0.037 ng/mL (0.000-0.055) 0.039 ng/mL (0.000-0.055) 0.031 ng/mL (0.000-0.055) UW-Dkw-Y-Type Natriuretic Peptide 687 pg/mL (0-449) Total Protein 7.6 g/dL (6.4-8.2) Albumin 3.5 g/dL (3.4-5.0) Albumin/Globulin Ratio 0.9 (1.0-1.7) Urine Collection Type Unknown Urine Color Yellow Urine Clarity Clear Urine pH 5.5 Urine Specific [place] 1.010 Urine Protein Negative mg/dL (NEG-TRACE) Urine Glucose (UA) Negative mg/dL (NEG) Urine Ketones (Stick) Negative mg/dL (NEG) Urine Blood Negative (NEG) Urine Nitrite Negative (NEG) Urine Bilirubin Negative (NEG) Urine Urobilinogen Dipstick 0.2 mg/dL (0.2 mg/dL) Urine Leukocyte Esterase Negative (NEG) Urine RBC Occ /HPF (0-2) Urine WBC 1-4 /HPF (0-4) Urine Squamous Epithelial Cells Few /LPF Urine Bacteria Few /HPF (0-FEW) Urine Hyaline Casts Few /HPF Test 08/14/18 06:10 08/14/18 06:15 Triglycerides Level 52 mg/dL (0-150) Cholesterol Level 151 mg/dL (0-200) LDL Cholesterol, Calculated 75 mg/dL (0-100) VLDL Cholesterol, Calculated 10 mg/dL (0-40) Non-HDL Cholesterol Calculated 85 mg/dL (0-129) HDL Cholesterol 66 mg/dL (40-60) Cholesterol/HDL Ratio 2.3 Troponin I Quantitative 0.033 ng/mL (0.000-0.055) Laboratory Tests Test 08/13/18 16:45 08/13/18 18:36 08/14/18 00:10 08/14/18 00:20 White Blood Count 8.8 x10^3/uL (4.0-11.0) Red Blood Count 5.28 x10^6/uL (3.50-5.40) Hemoglobin 10.0 g/dL (12.0-15.5) Hematocrit 32.6 % (36.0-47.0) Mean Corpuscular Volume 62 fL (79-100) Mean Corpuscular Hemoglobin 19 pg (25-35) Mean Corpuscular Hemoglobin Concent 31 g/dL (31-37) Red Cell Distribution Width 17.4 % (11.5-14.5) Platelet Count 256 x10^3/uL (140-400) Neutrophils (%) (Auto) 86 % (31-73) Lymphocytes (%) (Auto) 10 % (24-48) Monocytes (%) (Auto) 3 % (0-9) Eosinophils (%) (Auto) 0 % (0-3) Basophils (%) (Auto) 1 % (0-3) Neutrophils # (Auto) 7.6 x10^3uL (1.8-7.7) Lymphocytes # (Auto) 0.9 x10^3/uL (1.0-4.8) Monocytes # (Auto) 0.3 x10^3/uL (0.0-1.1) Eosinophils # (Auto) 0.0 x10^3/uL (0.0-0.7) Basophils # (Auto) 0.0 x10^3/uL (0.0-0.2) Segmented Neutrophils % 79 % (35-66) Band Neutrophils % 4 % (0-9) Lymphocytes % 11 % (24-48) Monocytes % 4 % (0-10) Eosinophils % 1 % (0-5) Basophils % 1 % (0-3) Nucleated Red Blood Cells 1 Platelet Estimate Adequate (ADEQUATE) Polychromasia Slight Hypochromasia Marked Basophilic Stippling Present Anisocytosis Slight Microcytosis Marked Target Cells Few Ovalocytes Mod Schistocytes Few Prothrombin Time 13.7 SEC (11.7-14.0) Prothromb Time International Ratio 1.1 (0.8-1.1) Sodium Level 139 mmol/L (136-145) Potassium Level 4.0 mmol/L (3.5-5.1) Chloride Level 104 mmol/L (98-107) Carbon Dioxide Level 29 mmol/L (21-32) Anion Gap 6 (6-14) Blood Urea Nitrogen 21 mg/dL (7-20) Creatinine 1.5 mg/dL (0.6-1.0) Estimated GFR (Cockcroft-Gault) 40.1 BUN/Creatinine Ratio 14 (6-20) Glucose Level 128 mg/dL (70-99) Calcium Level 9.4 mg/dL (8.5-10.1) Magnesium Level 2.1 mg/dL (1.8-2.4) Total Bilirubin 0.4 mg/dL (0.2-1.0) Aspartate Amino Transf (AST/SGOT) 15 U/L (15-37) Alanine Aminotransferase (ALT/SGPT) 8 U/L (14-59) Alkaline Phosphatase 58 U/L (46-116) Troponin I Quantitative 0.037 ng/mL (0.000-0.055) 0.039 ng/mL (0.000-0.055) 0.031 ng/mL (0.000-0.055) LE-Meq-Q-Type Natriuretic Peptide 687 pg/mL (0-449) Total Protein 7.6 g/dL (6.4-8.2) Albumin 3.5 g/dL (3.4-5.0) Albumin/Globulin Ratio 0.9 (1.0-1.7) Urine Collection Type Unknown Urine Color Yellow Urine Clarity Clear Urine pH 5.5 Urine Specific [place] 1.010 Urine Protein Negative mg/dL (NEG-TRACE) Urine Glucose (UA) Negative mg/dL (NEG) Urine Ketones (Stick) Negative mg/dL (NEG) Urine Blood Negative (NEG) Urine Nitrite Negative (NEG) Urine Bilirubin Negative (NEG) Urine Urobilinogen Dipstick 0.2 mg/dL (0.2 mg/dL) Urine Leukocyte Esterase Negative (NEG) Urine RBC Occ /HPF (0-2) Urine WBC 1-4 /HPF (0-4) Urine Squamous Epithelial Cells Few /LPF Urine Bacteria Few /HPF (0-FEW) Urine Hyaline Casts Few /HPF Test 08/14/18 06:10 08/14/18 06:15 Triglycerides Level 52 mg/dL (0-150) Cholesterol Level 151 mg/dL (0-200) LDL Cholesterol, Calculated 75 mg/dL (0-100) VLDL Cholesterol, Calculated 10 mg/dL (0-40) Non-HDL Cholesterol Calculated 85 mg/dL (0-129) HDL Cholesterol 66 mg/dL (40-60) Cholesterol/HDL Ratio 2.3 Troponin I Quantitative 0.033 ng/mL (0.000-0.055) Images Images Chest x-ray with no acute process. X-ray venous ultrasound with no DVT Assessment/Plan Assessment/Plan 1. Near syncope. Rhythm is stable. Patient is feeling better. We'll continue on telemetry. Check an echocardiogram for LV function. Consider an outpatient monitor. Patient does have a history of Parkinson's disease as well. 2. Parkinson's disease. Continuing present treatment. 3. Chronic kidney disease. Continuing to monitor lab. 4. History of DVTs and an IVC filter. Lower extremity venous ultrasound shows no DVTs. Thank you for allowing us to participate in the care of your patient. CAESAR TEIXEIRA MD Aug 14, 2018 16:31
[2018-08-14] MEDS ORDERED: LACTOBACILLUS RHAMNOSUS GG 1 CAPSULE. PO SCH (21:00)
[2018-08-15 03:10] VITALS: BP 144/72
[2018-08-15 06:20] LABS: BASO % 1 % (0-3); EOS # 0.3 x10^3/uL (0.0-0.7); EOS % 5 % (0-3); LYMPH # 2.1 x10^3/uL (1.0-4.8); LYMPH % 38 % (24-48); MEAN CORPUSCULAR HEMOGLOBIN 19 pg (25-35); MEAN CORPUSCULAR HGB CONC 31 g/dL (31-37); MEAN CORPUSCULAR VOLUME 61 fL (79-100); MONO # 0.3 x10^3/uL (0.0-1.1); MONO % 6 % (0-9); NEUT # 2.9 x10^3uL (1.8-7.7); NEUT % 51 % (31-73); PLATELET COUNT 225 x10^3/uL (140-400); RED BLOOD COUNT 4.72 x10^6/uL (3.50-5.40); RED CELL DISTRIBUTION WIDTH 16.8 % (11.5-14.5); WHITE BLOOD COUNT 5.6 x10^3/uL (4.0-11.0)
[2018-08-15 06:35] LABS: CREATININE 1.2 mg/dL (0.6-1.0); GFR 51.9; POTASSIUM 3.8 mmol/L (3.5-5.1); URIC ACID 6.3 mg/dL (2.6-6.0)
[2018-08-15 07:00] VITALS: BP 140/75
[2018-08-15] MEDS: CARBIDOPA/LEVODOPA CR 25/100MG TABLET.SA. PO SCH ×3 (09:00→20:59)
--- NOTE | 2018-08-15 09:25 | CARD ---
MR#: [id number] Date of Study: 08/15/2018 Ordering Physician: ELI ROSALES, Referring Physician: ELI ROSALES, Tech: Yris Zhang RDCS APPROVED REPORT EXAM: Two-dimensional and M-mode echocardiogram with Doppler and color Doppler. Other Information Quality : Technically LimitedHR: 74bpm Rhythm : NSRTechnically limited study due to body habitus. INDICATION Hypertension/HCVD 2D DIMENSIONS RVDd2.9 (2.9-3.5cm)Left Atrium(2D)3.7 (1.6-4.0cm) IVSd1.5 (0.7-1.1cm)Aortic Root(2D)3.2 (2.0-3.7cm) LVDd3.8 (3.9-5.9cm)LVOT Diameter2.0 (1.8-2.4cm) PWd1.1 (0.7-1.1cm)LVDs2.7 (2.5-4.0cm) FS (%) 28.3 %SV34.1 ml LVEF(%)55.5 (>50%) M-Mode DIMENSIONS Left Atrium(MM)3.02 (2.5-4.0cm)Aortic Root3.47 (2.2-3.7cm) Aortic Valve AoV Peak Salvatore.159.9cm/sAoV VTI32.8cm AO Peak GR.10.2mmHgLVOT Peak Salvatore.113.7cm/s AO Mean GR.7mmHgAVA (VMAX)2.25cm2 ROB (VTI)2.30cm2 Mitral Valve MV E Hpwhtrbe33.9cm/sMV DECEL [id number] MV A Ljkrikxm056.4cm/sE/A Ratio0.5 MV A [id number] Pulmonary Valve PV Peak Yloiahwb62.4cm/s Tricuspid Valve TR P. Yfnnygaj372iv/sRAP IIEPYCWG0nfVc TR Peak Gr.86vcBzZNYP88kcYh LEFT VENTRICLE The left ventricle is normal size. Proximal septal thickening is noted. The left ventricular systolic function is normal. The Ejection Fraction is 55-60%. There is normal LV segmental wall motion. Trans mitral Doppler flow pattern is Grade I-abnormal relaxation pattern. RIGHT VENTRICLE The right ventricle is normal size. There is normal right ventricular wall thickness. The right ventr icular systolic function is normal. ATRIA The left atrium size is normal. The right atrium size is normal. The interatrial septum is intact wit h no evidence for an atrial septal defect or patent foramen ovale as noted on 2-D or Doppler imaging. AORTIC VALVE The aortic valve is not well visualized. Doppler and Color Flow revealed no significant aortic regurg itation. There is no significant aortic valvular stenosis. MITRAL VALVE The mitral valve is thickened but opens well. There is no evidence of mitral valve prolapse. There is no mitral valve stenosis. Doppler and Color-flow revealed trace mitral regurgitation. TRICUSPID VALVE The tricuspid valve is normal in structure and function. Doppler and Color Flow revealed trace tricus pid regurgitation. The PA pressure was estimated at 31 mmHg. There is no tricuspid valve prolapse or vegetation. There is no tricuspid valve stenosis. PULMONIC VALVE The pulmonic valve is not well visualized. GREAT VESSELS The aortic root is normal in size. The ascending aorta is normal in size. The IVC is normal in size a nd collapses >50% with inspiration. PERICARDIAL EFFUSION There is no evidence of significant pericardial effusion. Critical Notification Critical Value: No <Conclusion> The left ventricular systolic function is normal. The Ejection Fraction is 55-60%. There is normal LV segmental wall motion. Transmitral Doppler flow pattern is Grade I-abnormal relaxation pattern. Trace mitral regurgitation. Trace tricuspid regurgitation. The PA pressure was estimated at 31 mmHg. There is no evidence of significant pericardial effusion. Signed by : Ricky Watson, Electronically Approved : 08/15/2018 09:25:07
[2018-08-15] MEDS: FUROSEMIDE 20 MG TABLET PO SCH (09:32)
[2018-08-15] MEDS: amLODIPine BESYLATE 5 MG TABLET PO SCH (09:33)
[2018-08-15] MEDS: FERROUS SULFATE 325 MG TABLET. PO SCH (09:34)
[2018-08-15] MEDS: ASPIRIN 325 MG TABLET PO SCH (09:34)
[2018-08-15] MEDS: CHOLECALCIFEROL (VITAMIN D3) 1,000 UNIT TABLET PO SCH (09:35)
[2018-08-15] MEDS: HEPARIN for SUB-Q USE 5,000 UNIT/ML VIAL. SQ SCH ×2 (09:41→21:06)
--- NOTE | 2018-08-15 10:14 | PDOC ---
PROGRESS NOTES Subjective Subjective feels well, no further near syncope. bp is better. creatinine 1.2. lab reviewed.bp okay. denies chest pain or shortness of breath . says she had brief dizziness during echocardiogram. echo okay with preserved LVEF. bilateral LE venous doppler neg for DVT. no arrhythmias. discussed with her nurse. Objective Objective Vital Signs Date Time Temp Pulse Resp B/P (MAP) Pulse Ox O2 Delivery O2 Flow Rate FiO2 08/15/18 09:33 70 140/75 08/15/18 07:00 97.7 17 97 Room Air 97.7 Intake and Output 08/15/18 06:59 Intake Total 900 ml Balance 900 ml Intake Oral 900 ml # Voids 1 Physical Exam Abdomen: Soft Heart: Regular rate, Normal S1, Normal S2 Extremities: No edema General: Alert HEENT: Atraumatic Lungs: Clear to auscultation Neuro: Normal speech, Other (resting tremor in hands) Psych/Mental Status: Mental status NL Skin: No rashes Assessment Assessment Problems1. Near syncope. echo okay. pulmonary embolus. 2. Hypertension. 3. Chronic kidney disease stage 3. 4. Anemia of chronic disease. 5. Chronic gout. 6. Parkinson disease. 7. Chronic venous insufficiency of the lower extremities. 8. History of a deep vein thrombosis left lower extremity with an IVC filter placed in 2013. 9. Thalassemia minor. Medical Problems: (1) Near syncope Status: Acute Plan Plan of Care dismiss today if okay with dr. rizvi defer out patient MPI study and heart monitor if okay with dr. Rizvi home with home health and home PT Comment Review of Relevant I have reviewed the following items cathleen (where applicable) has been applied. Labs Laboratory Tests Test 08/13/18 16:45 08/13/18 18:36 08/14/18 00:10 08/14/18 00:20 White Blood Count 8.8 x10^3/uL (4.0-11.0) Red Blood Count 5.28 x10^6/uL (3.50-5.40) Hemoglobin 10.0 g/dL (12.0-15.5) Hematocrit 32.6 % (36.0-47.0) Mean Corpuscular Volume 62 fL (79-100) Mean Corpuscular Hemoglobin 19 pg (25-35) Mean Corpuscular Hemoglobin Concent 31 g/dL (31-37) Red Cell Distribution Width 17.4 % (11.5-14.5) Platelet Count 256 x10^3/uL (140-400) Neutrophils (%) (Auto) 86 % (31-73) Lymphocytes (%) (Auto) 10 % (24-48) Monocytes (%) (Auto) 3 % (0-9) Eosinophils (%) (Auto) 0 % (0-3) Basophils (%) (Auto) 1 % (0-3) Neutrophils # (Auto) 7.6 x10^3uL (1.8-7.7) Lymphocytes # (Auto) 0.9 x10^3/uL (1.0-4.8) Monocytes # (Auto) 0.3 x10^3/uL (0.0-1.1) Eosinophils # (Auto) 0.0 x10^3/uL (0.0-0.7) Basophils # (Auto) 0.0 x10^3/uL (0.0-0.2) Segmented Neutrophils % 79 % (35-66) Band Neutrophils % 4 % (0-9) Lymphocytes % 11 % (24-48) Monocytes % 4 % (0-10) Eosinophils % 1 % (0-5) Basophils % 1 % (0-3) Nucleated Red Blood Cells 1 Platelet Estimate Adequate (ADEQUATE) Polychromasia Slight Hypochromasia Marked Basophilic Stippling Present Anisocytosis Slight Microcytosis Marked Target Cells Few Ovalocytes Mod Schistocytes Few Prothrombin Time 13.7 SEC (11.7-14.0) Prothromb Time International Ratio 1.1 (0.8-1.1) Sodium Level 139 mmol/L (136-145) Potassium Level 4.0 mmol/L (3.5-5.1) Chloride Level 104 mmol/L (98-107) Carbon Dioxide Level 29 mmol/L (21-32) Anion Gap 6 (6-14) Blood Urea Nitrogen 21 mg/dL (7-20) Creatinine 1.5 mg/dL (0.6-1.0) Estimated GFR (Cockcroft-Gault) 40.1 BUN/Creatinine Ratio 14 (6-20) Glucose Level 128 mg/dL (70-99) Calcium Level 9.4 mg/dL (8.5-10.1) Magnesium Level 2.1 mg/dL (1.8-2.4) Total Bilirubin 0.4 mg/dL (0.2-1.0) Aspartate Amino Transf (AST/SGOT) 15 U/L (15-37) Alanine Aminotransferase (ALT/SGPT) 8 U/L (14-59) Alkaline Phosphatase 58 U/L (46-116) Troponin I Quantitative 0.037 ng/mL (0.000-0.055) 0.039 ng/mL (0.000-0.055) 0.031 ng/mL (0.000-0.055) NJ-Dom-H-Type Natriuretic Peptide 687 pg/mL (0-449) Total Protein 7.6 g/dL (6.4-8.2) Albumin 3.5 g/dL (3.4-5.0) Albumin/Globulin Ratio 0.9 (1.0-1.7) Urine Collection Type Unknown Urine Color Yellow Urine Clarity Clear Urine pH 5.5 Urine Specific [place] 1.010 Urine Protein Negative mg/dL (NEG-TRACE) Urine Glucose (UA) Negative mg/dL (NEG) Urine Ketones (Stick) Negative mg/dL (NEG) Urine Blood Negative (NEG) Urine Nitrite Negative (NEG) Urine Bilirubin Negative (NEG) Urine Urobilinogen Dipstick 0.2 mg/dL (0.2 mg/dL) Urine Leukocyte Esterase Negative (NEG) Urine RBC Occ /HPF (0-2) Urine WBC 1-4 /HPF (0-4) Urine Squamous Epithelial Cells Few /LPF Urine Bacteria Few /HPF (0-FEW) Urine Hyaline Casts Few /HPF Test 08/14/18 06:10 08/14/18 06:15 08/15/18 05:20 Triglycerides Level 52 mg/dL (0-150) Cholesterol Level 151 mg/dL (0-200) LDL Cholesterol, Calculated 75 mg/dL (0-100) VLDL Cholesterol, Calculated 10 mg/dL (0-40) Non-HDL Cholesterol Calculated 85 mg/dL (0-129) HDL Cholesterol 66 mg/dL (40-60) Cholesterol/HDL Ratio 2.3 Troponin I Quantitative 0.033 ng/mL (0.000-0.055) White Blood Count 5.6 x10^3/uL (4.0-11.0) Red Blood Count 4.72 x10^6/uL (3.50-5.40) Hemoglobin 9.0 g/dL (12.0-15.5) Hematocrit 29.0 % (36.0-47.0) Mean Corpuscular Volume 61 fL (79-100) Mean Corpuscular Hemoglobin 19 pg (25-35) Mean Corpuscular Hemoglobin Concent 31 g/dL (31-37) Red Cell Distribution Width 16.8 % (11.5-14.5) Platelet Count 225 x10^3/uL (140-400) Neutrophils (%) (Auto) 51 % (31-73) Lymphocytes (%) (Auto) 38 % (24-48) Monocytes (%) (Auto) 6 % (0-9) Eosinophils (%) (Auto) 5 % (0-3) Basophils (%) (Auto) 1 % (0-3) Neutrophils # (Auto) 2.9 x10^3uL (1.8-7.7) Lymphocytes # (Auto) 2.1 x10^3/uL (1.0-4.8) Monocytes # (Auto) 0.3 x10^3/uL (0.0-1.1) Eosinophils # (Auto) 0.3 x10^3/uL (0.0-0.7) Basophils # (Auto) 0.0 x10^3/uL (0.0-0.2) Sodium Level 144 mmol/L (136-145) Potassium Level 3.8 mmol/L (3.5-5.1) Chloride Level 107 mmol/L (98-107) Carbon Dioxide Level 29 mmol/L (21-32) Anion Gap 8 (6-14) Blood Urea Nitrogen 14 mg/dL (7-20) Creatinine 1.2 mg/dL (0.6-1.0) Estimated GFR (Cockcroft-Gault) 51.9 Glucose Level 74 mg/dL (70-99) Uric Acid 6.3 mg/dL (2.6-6.0) Calcium Level 9.0 mg/dL (8.5-10.1) Magnesium Level 2.0 mg/dL (1.8-2.4) Laboratory Tests Test 08/15/18 05:20 White Blood Count 5.6 x10^3/uL (4.0-11.0) Red Blood Count 4.72 x10^6/uL (3.50-5.40) Hemoglobin 9.0 g/dL (12.0-15.5) Hematocrit 29.0 % (36.0-47.0) Mean Corpuscular Volume 61 fL (79-100) Mean Corpuscular Hemoglobin 19 pg (25-35) Mean Corpuscular Hemoglobin Concent 31 g/dL (31-37) Red Cell Distribution Width 16.8 % (11.5-14.5) Platelet Count 225 x10^3/uL (140-400) Neutrophils (%) (Auto) 51 % (31-73) Lymphocytes (%) (Auto) 38 % (24-48) Monocytes (%) (Auto) 6 % (0-9) Eosinophils (%) (Auto) 5 % (0-3) Basophils (%) (Auto) 1 % (0-3) Neutrophils # (Auto) 2.9 x10^3uL (1.8-7.7) Lymphocytes # (Auto) 2.1 x10^3/uL (1.0-4.8) Monocytes # (Auto) 0.3 x10^3/uL (0.0-1.1) Eosinophils # (Auto) 0.3 x10^3/uL (0.0-0.7) Basophils # (Auto) 0.0 x10^3/uL (0.0-0.2) Sodium Level 144 mmol/L (136-145) Potassium Level 3.8 mmol/L (3.5-5.1) Chloride Level 107 mmol/L (98-107) Carbon Dioxide Level 29 mmol/L (21-32) Anion Gap 8 (6-14) Blood Urea Nitrogen 14 mg/dL (7-20) Creatinine 1.2 mg/dL (0.6-1.0) Estimated GFR (Cockcroft-Gault) 51.9 Glucose Level 74 mg/dL (70-99) Uric Acid 6.3 mg/dL (2.6-6.0) Calcium Level 9.0 mg/dL (8.5-10.1) Magnesium Level 2.0 mg/dL (1.8-2.4) Medications Current Medications Aspirin (Children'S Aspirin) 324 mg 1X ONCE PO Last administered on 08/13/18at 16:51; Start 08/13/18 at 16:00; Stop 08/13/18 at 16:08; Status DC Ondansetron HCl (Zofran) 4 mg PRN Q6HRS PRN IV NAUSEA/VOMITING; Start 08/13/18 at 17:45 Acetaminophen (Tylenol) 650 mg PRN Q6HRS PRN PO FEVER/HEADACHE; Start 08/13/18 at 17:45 Nitroglycerin (Nitrostat) 0.4 mg PRN Q5MIN PRN SL CHEST PAIN; Start 08/13/18 at 17:45 Aspirin (Michael Aspirin) 325 mg DAILYWBKFT PO Last administered on 08/15/18 09: 34; Start 08/14/18 at 08:00 Vitamin D (Vitamin D3) 1,000 unit DAILY PO Last administered on 08/15/18 09:35 ; Start 08/14/18 at 09:00 Ferrous Sulfate (Feosol) 325 mg DAILY PO Last administered on 08/15/18 09:34; Start 08/14/18 at 09:00 Furosemide (Lasix) 20 mg DAILY PO Last administered on 08/15/18 09:32; Start 08/14/18 at 09:00 Carbidopa/Levodopa (Sinemet Cr) 2 tab.sa TID PO Last administered on 08/15/18 09:00; Start 08/13/18 at 21:45 Lactobacillus Rhamnosus (Culturelle) 1 cap BID PO ; Start 08/14/18 at 21:00; Status Cancel Nitroglycerin (Nitro-Bid Oint) 2 inch 1X ONCE TP ; Start 08/14/18 at 10:30; Stop 08/14/18 at 10:35; Status DC Amlodipine Besylate (Norvasc) 5 mg DAILY PO Last administered on 08/15/18 09: 33; Start 08/14/18 at 11:00 Magnesium Hydroxide (Milk Of Magnesia) 2,400 mg PRN DAILY PRN PO CONSTIPATION; Start 08/14/18 at 11:00 Heparin Sodium (Porcine) (Heparin Sodium) 5,000 unit Q12HR SQ Last administered on 08/15/18at 09:41; Start 08/14/18 at 12:00 Active Scripts Active Reported Ferrous Sulfate 325 Mg Tablet 325 Mg PO DAILY Vitamin D3 (Cholecalciferol (Vitamin D3)) 1,000 Unit Tablet 1,000 Unit PO DAILY Aspirin 325 Mg Tablet 325 Mg PO DAILY Sinemet Cr 50-200 Tablet (Carbidopa/Levodopa) 1 Each Tablet.er 1 Tab PO TID Furosemide 20 Mg Tablet 20 Mg PO DAILY Vitals/I & O Vital Sign - Last 24 Hours 08/14/18 08/14/18 08/14/18 08/14/18 10:56 10:58 11:00 13:16 Temp 98.3 98.3 Pulse 78 76 82 Resp 16 B/P (MAP) 174/88 174/88 (116) 173/94 (120) 123/64 (83) Pulse Ox 98 O2 Delivery Room Air 08/14/18 08/14/18 08/14/18 08/14/18 13:21 13:25 14:54 19:30 Temp 98.2 98.2 Pulse 76 78 82 Resp 17 B/P (MAP) 144/75 (98) 149/72 (97) 119/66 (83) Pulse Ox 99 O2 Delivery Room Air Room Air 08/14/18 08/14/18 08/15/18 08/15/18 19:50 23:43 03:10 07:00 Temp 98.2 98.2 97.8 97.7 98.2 98.2 97.8 97.7 Pulse 76 81 81 70 Resp 18 18 20 17 B/P (MAP) 123/61 (81) 144/76 (98) 144/72 (96) 140/75 (96) Pulse Ox 96 97 97 97 O2 Delivery Room Air Room Air Room Air Room Air 08/15/18 09:33 Pulse 70 B/P (MAP) 140/75 Intake and Output 08/14/18 08/14/18 08/15/18 14:59 22:59 06:59 Intake Total 800 ml 100 ml Balance 800 ml 100 ml ELI ROSALES MD Aug 15, 2018 10:14
[2018-08-15] MEDS ORDERED: AMLO5TAB10 PO (10:20)
--- NOTE | 2018-08-15 10:22 | EKG ---
[facility] [address] [place] [id number] Test Date: 2018-08-13 Test Time: 16:22:29 Pat Name: JACKIE GROVES Department: Room: 202 1 Gender: F Blockman: : [id number] Requested By: CORY IZAGUIRRE Order Number: [id number] Reading MD: Cecilio Chavez MD Measurements Intervals [place] Rate: 76 P: 31 NE: 146 QRS: -20 QRSD: 126 T: 153 QT: 410 QTc: 466 Interpretive Statements SINUS RHYTHM LBBB Electronically Signed On 08-15-2018 10:23:39 CDT by Cecilio Chavez MD
--- NOTE | 2018-08-15 10:22 | DISCH ---
DISCHARGE WITH HOME HEALTH DISCHARGE INFORMATION: Discharge Date: Aug 15, 2018 Final Diagnosis: Problems Medical Problems: (1) Near syncope Status: Acute Condition on Discharge: Stable HOME HEALTH: Face to Face: I certify this patient is under my care and that I, or a nurse practitioner or physician's email marketing assistant working with me, had a face to face encounter that meets the physician face to face encounter requirements with this patient on [08/15/18] Physical Therapy For: Evalulation/Treatment Pt Meets Homebound Status: Fatigue w/ amb. POST DISCHARGE ORDERS: Activity Instructions for Disc: Activity as tolerated Weight Bearing Status after Di: As tolerated DIET AFTER DISCHARGE: Regular Wound/Incision Care: Keep wound/cast CDI CHECKS AFTER DISCHARGE: Checks after discharge: Check blood press - daily, Weigh Yourself Daily FOLLOW-UP: Follow up with: dr. rosales next week TREATMENT/EQUIPMENT ORDERS: Adaptive Equipment Issued: None CERTIFICATION STATEMENT: Certification Statement: Certification Statement: Based on the above finding, I certify that this patient is confined to the home and needs intermittent residential care, physical therapy and/or speech therapy, or continues to need occupational therapy.~ This patient is under my care, and I have initiated the establishment of the plan of care.~ This patient will be followed by myself or a community physician who will periodically review the plan of care. Home Meds Active Scripts Amlodipine Besylate (AMLODIPINE BESYLATE) 5 Mg Tablet, 5 MG PO DAILY for hypertension, #30 TAB Prov:ELI ROSALES MD 08/15/18 Reported Medications Ferrous Sulfate (FERROUS SULFATE) 325 Mg Tablet, 325 MG PO DAILY, TAB 11/30/17 Cholecalciferol (Vitamin D3) (VITAMIN D3) 1,000 Unit Tablet, 1000 UNIT PO DAILY , TAB 11/30/17 Aspirin (ASPIRIN) 325 Mg Tablet, 325 MG PO DAILY 08/26/16 Carbidopa/Levodopa (SINEMET CR 50-200 TABLET) 1 Each Tablet.er, 1 TAB PO TID, TAB 09/16/15 Furosemide (FUROSEMIDE) 20 Mg Tablet, 20 MG PO DAILY 04/27/13 ELI ROSALES MD Aug 15, 2018 10:22
--- NOTE | 2018-08-15 10:27 | PDOC ---
Provider Note Provider Note discharge summary dictated # [id number] ELI ROSALES MD Aug 15, 2018 10:27
--- NOTE | 2018-08-15 10:46 | DS ---
DATE OF DISCHARGE: 08/15/2018 CONSULTANTS: Dr. Rizvi. FINAL DIAGNOSES: 1. Near syncope of undetermined etiology. 2. Hypertension. 3. Chronic kidney disease stage 3. 4. Anemia of chronic disease. 5. Thalassemia minor. 6. Chronic gout. 7. Parkinson's disease. 8. Chronic venous insufficiency of the lower extremities. HOSPITAL COURSE: History of deep vein thrombosis of left lower extremity, treated with an IVC filter in 2012. HOSPITAL COURSE: The patient is an 83-year-old -[place] female with a history of chronic kidney disease stage 3, and anemia of chronic disease, who has Parkinson's disease, and was standing up washing her dishes for about 30 minutes when she became dizzy and lightheaded, had a near syncopal episode and her daughter assisted her to a chair without any chest pain or shortness of breath and felt fine eventually after sitting down. She denied any nausea, vomiting, melena, hematochezia, palpitations. She sought help in the [facility] Emergency Room where she was hemodynamically stable, in sinus rhythm. She does have a history of hypertension. She does take furosemide 20 mg every day for chronic venous insufficiency of the lower extremities. She said she had 4 episodes of chest pain lasting up to 1 minute each while she was sitting at the side of the bed like 1 week earlier. After admission to the hospital, she did not have any arrhythmias, her blood pressure was high and she was started on amlodipine 5 mg every day with improved blood pressure control. An echocardiogram showed a left ventricular ejection fraction that was normal. She was seen in consultation by Dr. Rizvi. She did not have any arrhythmias. She did not have any significant orthostatic hypotension. She had a venous Doppler of both legs that was negative for deep vein thrombosis. She therefore will be dismissed to home with home health. She does use a cane at home and a walker in the community. She does have Parkinson's disease. She will be dismissed to home with home health and aspirin 325 mg a day, ferrous sulfate 325 mg every day, Procrit 10,000 units every 2 weeks, Sinemet 50-200 one tablet t.i.d., vitamin D 2000 units every day, furosemide 20 mg every day and amlodipine 5 mg every day. She will make an appointment to see Dr. Miles in 1 week. I discussed the case with the patient's nurse who will contact Dr. Rizvi and she can be dismissed to home later today if it is okay with him. He will also decide whether to proceed with a myocardial perfusion imaging stress test given the recent chest pain 1 week ago and also possibly outpatient heart monitor. ELI MILES MD DR: CHEKO/eri JOB#: [id number] / [id number]
[2018-08-15 11:00] VITALS: BP 134/68
--- NOTE | 2018-08-15 11:13 | NUR ---
SS following for discharge planning. Discharge orders on the chart for home healthcare. SS notified Peggy from [facility]. SS met with pt to discuss home healthcare and home healthcare options. Pt agreeable to home healthcare and reported having no preference. SS phoned and faxed referral and discharge orders to [facility], ; fax [phone]. SS notified Peggy from [facility]. Pt's RN notified.
--- NOTE | 2018-08-15 11:19 | PDOC ---
CARDIO Progress Notes Date and Time Date of Service 08/15/18 Time of Evaluation 1100 Subjective Subjective: No Chest Pain, No shortness of breath Vitals Vitals Vital Signs Date Time Temp Pulse Resp B/P (MAP) Pulse Ox O2 Delivery O2 Flow Rate FiO2 08/15/18 09:33 70 140/75 08/15/18 07:30 Room Air 08/15/18 07:00 97.7 17 97 97.7 Weight Weight [ ] Input and Output Intake and Output Intake and Output 08/15/18 06:59 Intake Total 900 ml Balance 900 ml Intake Oral 900 ml # Voids 1 Laboratory Labs Laboratory Tests Test 08/15/18 05:20 White Blood Count 5.6 x10^3/uL (4.0-11.0) Red Blood Count 4.72 x10^6/uL (3.50-5.40) Hemoglobin 9.0 g/dL (12.0-15.5) Hematocrit 29.0 % (36.0-47.0) Mean Corpuscular Volume 61 fL (79-100) Mean Corpuscular Hemoglobin 19 pg (25-35) Mean Corpuscular Hemoglobin Concent 31 g/dL (31-37) Red Cell Distribution Width 16.8 % (11.5-14.5) Platelet Count 225 x10^3/uL (140-400) Neutrophils (%) (Auto) 51 % (31-73) Lymphocytes (%) (Auto) 38 % (24-48) Monocytes (%) (Auto) 6 % (0-9) Eosinophils (%) (Auto) 5 % (0-3) Basophils (%) (Auto) 1 % (0-3) Neutrophils # (Auto) 2.9 x10^3uL (1.8-7.7) Lymphocytes # (Auto) 2.1 x10^3/uL (1.0-4.8) Monocytes # (Auto) 0.3 x10^3/uL (0.0-1.1) Eosinophils # (Auto) 0.3 x10^3/uL (0.0-0.7) Basophils # (Auto) 0.0 x10^3/uL (0.0-0.2) Sodium Level 144 mmol/L (136-145) Potassium Level 3.8 mmol/L (3.5-5.1) Chloride Level 107 mmol/L (98-107) Carbon Dioxide Level 29 mmol/L (21-32) Anion Gap 8 (6-14) Blood Urea Nitrogen 14 mg/dL (7-20) Creatinine 1.2 mg/dL (0.6-1.0) Estimated GFR (Cockcroft-Gault) 51.9 Glucose Level 74 mg/dL (70-99) Uric Acid 6.3 mg/dL (2.6-6.0) Calcium Level 9.0 mg/dL (8.5-10.1) Magnesium Level 2.0 mg/dL (1.8-2.4) Physical Exam HEENT: Neck Supple W Full Motion Chest: Symmetric LUNGS: Clear to Auscultation Heart: S1S2, RRR (no acute events on tele) Extremities: Other (1+ bilateral LE edema ) Neurology: alert, oriented, follow commands Assessment Assessment 1. Near syncope; no acute events on telemetry. No orthostasis noted. Echo revealed LVEF 55-60%. No WMA or significant valvular anomalies. 2. Chest pain, atypical. Echo as noted above without any WMA. 3. Hypertension; controlled 4. FRANCO on CKD; improved 5. Parkinson's disease. Continuing present treatment. 6. H/o DVT s/p IVC filter Recommendations May discharge from a CV standpoint Will arrange for an outpatient event monitor Consider outpatient ischemic evaluation given c/o chest pain F/u in our office with Dr. Rizvi in 4 weeks as scheduled. MCKENZIE KUHN APRN Aug 15, 2018 11:19
[2018-08-15 15:00] VITALS: BP 136/67
--- NOTE | 2018-08-15 15:57 | NUR ---
SS following up with discharge planning. SS received notification from PT and pt's RN that discharge has been cancelled due to new recommendation of acute rehabilitation. SS was asked to phone and fax referral to [facility]. Pt in agreement. SS phoned and faxed referral to [facility], ; fax [phone]. SS will await acceptance decision and will proceed accordingly.
--- NOTE | 2018-08-15 17:00 | NUR ---
Pt is refusing to go to [facility], says it is too far for daughter to drive, wants something closer like [facility]
[2018-08-15 19:20] VITALS: BP 125/70
[2018-08-15 23:00] VITALS: BP 156/84
[2018-08-16 03:35] VITALS: BP 136/69
[2018-08-16 07:00] VITALS: BP 151/76
[2018-08-16] MEDS: ASPIRIN 325 MG TABLET PO SCH (08:20)
[2018-08-16] MEDS: FUROSEMIDE 20 MG TABLET PO SCH (08:21)
[2018-08-16] MEDS: FERROUS SULFATE 325 MG TABLET. PO SCH (08:21)
[2018-08-16] MEDS: amLODIPine BESYLATE 5 MG TABLET PO SCH (08:22)
[2018-08-16] MEDS: CARBIDOPA/LEVODOPA CR 25/100MG TABLET.SA. PO SCH ×2 (08:22→13:02)
[2018-08-16] MEDS: CHOLECALCIFEROL (VITAMIN D3) 1,000 UNIT TABLET PO SCH (08:24)
[2018-08-16] MEDS: HEPARIN for SUB-Q USE 5,000 UNIT/ML VIAL. SQ SCH (08:52)
--- NOTE | 2018-08-16 09:59 | PDOC ---
PROGRESS NOTES Subjective Subjective feels better. denies chest pain and shortness of breath and dizziness. concurs with transfer to [facility]. discussed with PT who also concurs. Objective Objective Vital Signs Date Time Temp Pulse Resp B/P (MAP) Pulse Ox O2 Delivery O2 Flow Rate FiO2 08/16/18 08:22 70 151/76 08/16/18 08:00 Room Air 08/16/18 07:00 98.1 18 97 98.1 Intake and Output 08/16/18 07:00 Intake Total 420 ml Balance 420 ml Intake Oral 420 ml # Voids 1 Physical Exam Abdomen: Soft Heart: Regular rate, Normal S1, Normal S2 Extremities: No edema General: Alert HEENT: Atraumatic Lungs: Clear to auscultation Neuro: Normal speech Psych/Mental Status: Mental status NL Skin: No rashes Assessment Assessment Problems1. Near syncope. echo okay. pulmonary embolus. 2. Hypertension. 3. Chronic kidney disease stage 3. 4. Anemia of chronic disease. 5. Chronic gout. 6. Parkinson disease. 7. Chronic venous insufficiency of the lower extremities. 8. History of a deep vein thrombosis left lower extremity with an IVC filter placed in 2012. 9. Thalassemia minor. gait dysfunction Medical Problems: (1) Near syncope Status: Acute Plan Plan of Care dismiss to [facility] today Comment Review of Relevant I have reviewed the following items cathleen (where applicable) has been applied. Labs Laboratory Tests Test 08/15/18 05:20 White Blood Count 5.6 x10^3/uL (4.0-11.0) Red Blood Count 4.72 x10^6/uL (3.50-5.40) Hemoglobin 9.0 g/dL (12.0-15.5) Hematocrit 29.0 % (36.0-47.0) Mean Corpuscular Volume 61 fL (79-100) Mean Corpuscular Hemoglobin 19 pg (25-35) Mean Corpuscular Hemoglobin Concent 31 g/dL (31-37) Red Cell Distribution Width 16.8 % (11.5-14.5) Platelet Count 225 x10^3/uL (140-400) Neutrophils (%) (Auto) 51 % (31-73) Lymphocytes (%) (Auto) 38 % (24-48) Monocytes (%) (Auto) 6 % (0-9) Eosinophils (%) (Auto) 5 % (0-3) Basophils (%) (Auto) 1 % (0-3) Neutrophils # (Auto) 2.9 x10^3uL (1.8-7.7) Lymphocytes # (Auto) 2.1 x10^3/uL (1.0-4.8) Monocytes # (Auto) 0.3 x10^3/uL (0.0-1.1) Eosinophils # (Auto) 0.3 x10^3/uL (0.0-0.7) Basophils # (Auto) 0.0 x10^3/uL (0.0-0.2) Sodium Level 144 mmol/L (136-145) Potassium Level 3.8 mmol/L (3.5-5.1) Chloride Level 107 mmol/L (98-107) Carbon Dioxide Level 29 mmol/L (21-32) Anion Gap 8 (6-14) Blood Urea Nitrogen 14 mg/dL (7-20) Creatinine 1.2 mg/dL (0.6-1.0) Estimated GFR (Cockcroft-Gault) 51.9 Glucose Level 74 mg/dL (70-99) Uric Acid 6.3 mg/dL (2.6-6.0) Calcium Level 9.0 mg/dL (8.5-10.1) Magnesium Level 2.0 mg/dL (1.8-2.4) Medications Current Medications Aspirin (Children'S Aspirin) 324 mg 1X ONCE PO Last administered on 08/13/18at 16:51; Start 08/13/18 at 16:00; Stop 08/13/18 at 16:08; Status DC Ondansetron HCl (Zofran) 4 mg PRN Q6HRS PRN IV NAUSEA/VOMITING; Start 08/13/18 at 17:45 Acetaminophen (Tylenol) 650 mg PRN Q6HRS PRN PO FEVER/HEADACHE; Start 08/13/18 at 17:45 Nitroglycerin (Nitrostat) 0.4 mg PRN Q5MIN PRN SL CHEST PAIN; Start 08/13/18 at 17:45 Aspirin (Michael Aspirin) 325 mg DAILYWBKFT PO Last administered on 08/16/18at 08: 20; Start 08/14/18 at 08:00 Vitamin D (Vitamin D3) 1,000 unit DAILY PO Last administered on 08/16/18 08:24 ; Start 08/14/18 at 09:00 Ferrous Sulfate (Feosol) 325 mg DAILY PO Last administered on 08/16/18 08:21; Start 08/14/18 at 09:00 Furosemide (Lasix) 20 mg DAILY PO Last administered on 08/16/18 08:21; Start 08/14/18 at 09:00 Carbidopa/Levodopa (Sinemet Cr) 2 tab.sa TID PO Last administered on 08/16/18 08:22; Start 08/13/18 at 21:45 Lactobacillus Rhamnosus (Culturelle) 1 cap BID PO ; Start 08/14/18 at 21:00; Status Cancel Nitroglycerin (Nitro-Bid Oint) 2 inch 1X ONCE TP ; Start 08/14/18 at 10:30; Stop 08/14/18 at 10:35; Status DC Amlodipine Besylate (Norvasc) 5 mg DAILY PO Last administered on 08/16/18 08: 22; Start 08/14/18 at 11:00 Magnesium Hydroxide (Milk Of Magnesia) 2,400 mg PRN DAILY PRN PO CONSTIPATION; Start 08/14/18 at 11:00 Heparin Sodium (Porcine) (Heparin Sodium) 5,000 unit Q12HR SQ Last administered on 08/16/18at 08:52; Start 08/14/18 at 12:00 Active Scripts Active Amlodipine Besylate 5 Mg Tablet 5 Mg PO DAILY Reported Ferrous Sulfate 325 Mg Tablet 325 Mg PO DAILY Vitamin D3 (Cholecalciferol (Vitamin D3)) 1,000 Unit Tablet 1,000 Unit PO DAILY Aspirin 325 Mg Tablet 325 Mg PO DAILY Sinemet Cr 50-200 Tablet (Carbidopa/Levodopa) 1 Each Tablet.er 1 Tab PO TID Furosemide 20 Mg Tablet 20 Mg PO DAILY Vitals/I & O Vital Sign - Last 24 Hours 08/15/18 08/15/18 08/15/18 08/15/18 11:00 15:00 19:20 19:50 Temp 98.3 98.0 98.1 98.3 98.0 98.1 Pulse 58 74 75 Resp 16 18 18 B/P (MAP) 134/68 (90) 136/67 (90) 125/70 (88) Pulse Ox 97 96 95 O2 Delivery Room Air Room Air Room Air Room Air 08/15/18 08/16/18 08/16/18 08/16/18 23:00 03:35 07:00 08:00 Temp 97.9 98.7 98.1 97.9 98.7 98.1 Pulse 73 70 70 Resp 18 18 18 B/P (MAP) 156/84 (108) 136/69 (91) 151/76 (101) Pulse Ox 97 95 97 O2 Delivery Room Air Room Air Room Air Room Air 08/16/18 08:22 Pulse 70 B/P (MAP) 151/76 Intake and Output 08/15/18 08/15/18 08/16/18 15:00 23:00 07:00 Intake Total 120 ml 300 ml Balance 120 ml 300 ml ELI ROSALES MD Aug 16, 2018 09:59
--- NOTE | 2018-08-16 10:07 | PDOC ---
Provider Note Provider Note discharge summary addendum dictated [id number] ELI ROSALES MD Aug 16, 2018 10:06
--- NOTE | 2018-08-16 10:29 | DS ---
DATE OF DISCHARGE: 08/16/2018 ADDENDUM. The addendum is, the patient stayed an extra day in the hospital because of gait dysfunction. She needed more physical therapy. She spoke with the physical therapist who felt the best place for was a physical rehabilitation hospital. After a long discussion with the patient, the patient's family concurs to go to [facility] later today. DISCHARGE MEDICATIONS: The same. She will be dismissed later today to [facility]. FINAL DIAGNOSIS: Gait dysfunction. She also see Dr. Rizvi in the office in 1 month, I think 09/20 is her appointment. We will evaluate her for possible stress test if necessary and also heart monitor as an outpatient. ELI ROSALES MD DR: CHEKO/nts JOB#: [id number] / [id number]
--- NOTE | 2018-08-16 10:54 | NUR ---
SS following up with discharge planning. SS met with pt and pt reported that she met with Dr. Miles and now wants to go to [facility]. Discharge orders received. SS phoned and faxed discharge orders to [facility], ; fax [phone]. Pt accepted and will discharge today to [facility] at 1330. [facility] to provide transport. Pt and pt's RN notified. SS contacted pt's daughter and left a voicemail including discharge information and contact information for SS and the floor RN.
[2018-08-16 11:00] VITALS: BP 120/65
--- NOTE | 2018-08-16 13:54 | NUR ---
Discharge report called to receiving nurse Nissa at [facility]. Pt dismissed to [facility] at 1350 per w/c van. Transfer papers sent with truck driver supervisor.
== END 2018-08-16 13:50 | DRG 175 ==
LOC: ER 15:52 → OBSVTOIN 17:34 → 2 NORTH 17:34
PROVIDERS: ADMIT Internal Medicine; ATTEND Internal Medicine
DX: I26.99 Other pulmonary embolism without acute cor pulmonale (principal); N17.0 Acute kidney failure with tubular necrosis; G20 Parkinson's disease; I12.9 Hypertensive chronic kidney disease with stage 1 through stage 4 chronic kidney disease, or unspecified chronic kidney disease; N18.3 Chronic kidney disease, stage 3 (moderate); D63.8 Anemia in other chronic diseases classified elsewhere; I87.2 Venous insufficiency (chronic) (peripheral); M1A.9XX0 Chronic gout, unspecified, without tophus (tophi); I44.7 Left bundle-branch block, unspecified; D56.3 Thalassemia minor; M19.90 Unspecified osteoarthritis, unspecified site; R07.89 Other chest pain; Z86.718 Personal history of other venous thrombosis and embolism; Z79.899 Other long term (current) drug therapy; Z79.82 Long term (current) use of aspirin; Z90.49 Acquired absence of other specified parts of digestive tract; Z82.49 Family history of ischemic heart disease and other diseases of the circulatory system; Z95.828 Presence of other vascular implants and grafts
CPT/HCPCS: 36415; 71045; 80048; 80053; 80061; 81001; 83735; 83880; 84484; 84550; 85007; 85025; 85610; 93005; 93306; 93970; J1644; 97530; 99285-25

== ENCOUNTER 2020-01-01 16:14 | Inpatient (IN) | payer MEDICARE, OTHER ==
[~2020-01-01] VITALS: Ht 165.1 cm; Wt 76.1 kg
[~2020-01-01 16:14] MED LIST changes: +AMLO5TAB10 PO; -ASPI-861 PO; +ASPI-964 PO; -PANT40TA5 PO; +PANT40TA77 PO; -PARI1CAP PO; +PARI1CAP17 PO
[2020-01-01 16:30] VITALS: BP 117/67
[2020-01-01] MEDS ORDERED: PRAM0.255 PO (17:03)
[2020-01-01] MEDS ORDERED: FUROSEMIDE 40 MG/4 ML VIAL. IVP ONE (18:30)
[2020-01-01] MEDS: ceFAZolin SODIUM IV Push 1 GM VIAL. IVP SCH (18:30)
[2020-01-01 19:00] VITALS: BP 125/60
[2020-01-01 19:03] LABS: BASO % 0 % (0-3); EOS # 0.1 x10^3/uL (0.0-0.7); EOS % 1 % (0-3); HEMATOCRIT 27.8 % (36.0-47.0); HEMOGLOBIN 8.9 g/dL (12.0-15.5); LYMPH # 1.4 x10^3/uL (1.0-4.8); LYMPH % 14 % (24-48); MEAN CORPUSCULAR HEMOGLOBIN 20 pg (25-35); MEAN CORPUSCULAR HGB CONC 32 g/dL (31-37); MEAN CORPUSCULAR VOLUME 61 fL (79-100); MONO # 0.7 x10^3/uL (0.0-1.1); MONO % 7 % (0-9); NEUT % 78 % (31-73); PLATELET COUNT 231 x10^3/uL (140-400); RED BLOOD COUNT 4.56 x10^6/uL (3.50-5.40); RED CELL DISTRIBUTION WIDTH 17.3 % (11.5-14.5); WHITE BLOOD COUNT 10.2 x10^3/uL (4.0-11.0)
[2020-01-01 19:12] LABS: ALBUMIN 2.9 g/dL (3.4-5.0); ALBUMIN/GLOBULIN RATIO 0.7 (1.0-1.7); CREATININE 1.7 mg/dL (0.6-1.0); GFR 34.6; MAGNESIUM 2.3 mg/dL (1.8-2.4); TOTAL BILIRUBIN 0.5 mg/dL (0.2-1.0); TOTAL PROTEIN 7.1 g/dL (6.4-8.2)
--- NOTE | 2020-01-01 19:51 | NUR ---
Patient Ms. Mercedez Krishnamurthy, 84/F admitted due to left leg cellulitis arrived on the unit at 1630. She's alert, oriented x2, denies pain, on room air. The patient's daughter was at the bedside, belongings checked, call light placed within reach. Dr. Miles notified of admission.
--- NOTE | 2020-01-01 20:00 | NUR ---
Attempted to start IV Saline Lock Patient complained the whole time unable to insert charge Nurse ANAHI Hidalgo will attempt when she is able to.
--- NOTE | 2020-01-01 20:05 | RAD ---
EXAM: AP View of the chest DATE: 01/01/2020 5:39 PM INDICATION: Dyspnea, CHF COMPARISON: No Prior FINDINGS: Borderline cardiomegaly. Blunting left costophrenic angle likely trace left pleural effusion. Patchy right mid lung and lung base airspace opacities as well as bilateral interstitial prominence are seen. No pneumothorax. IMPRESSION: Borderline cardiomegaly with interstitial prominence and trace left pleural effusion may represent changes of interstitial pulmonary edema. Given the asymmetric right-sided parenchymal airspace opacities, typical or atypical infectious/inflammatory process are also a primary consideration. Electronically signed by: Tyshawn Hayes MD (01/01/2020 8:03 PM) JAD
[2020-01-01] MEDS ORDERED: ENOXAPARIN 30 MG/0.3 ML SYRINGE. SQ SCH (21:00)
--- NOTE | 2020-01-01 21:10 | RAD ---
INDICATION: Reason: bilateral leg swelling r/o DVT / Spl. Instructions: / History: COMPARISON: July 2018 TECHNIQUE: Grayscale, color and doppler ultrasound images were obtained of the bilateral lower extremity venous vasculature. RIGHT: No thrombus identified in the common femoral vein, femoral vein, popliteal vein. Limited visualization of calf veins. LEFT: No thrombus within the common femoral or popliteal vein. Thrombus is seen in one of the superficial femoral veins on the left. Prominent lymph node in the left groin with preserved fatty hilum measuring 14 mm short axis. Edema of soft tissues. IMPRESSION: * Thrombus within the duplicated superficial femoral vein on the left. * Edema of the soft tissues. * Enlarged lymph node left groin with preserved fatty hilum. Electronically signed by: Bharathi Moreno MD (01/01/2020 9:07 PM) [id number]
--- NOTE | 2020-01-01 21:12 | EKG ---
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
[2020-01-01] MEDS: ACETAMINOPHEN 500 MG TABLET PO PRN (21:40)
[2020-01-01] MEDS: CARBIDOPA/LEVODOPA CR 25/100MG TABLET.SA. PO SCH (21:40)
[2020-01-01] MEDS: PRAMIPEXOLE 0.25 MG TABLET. PO SCH (21:45)
[2020-01-01] MEDS ORDERED: DEXTROSE 5% IV SCH (22:00)
[2020-01-01] MEDS ORDERED: CEFAZOLIN SODIUM IV SCH (22:00)
--- NOTE | 2020-01-01 22:30 | NUR ---
Charge Nurse ANAHI Hidalgo attempted to Start IV SL also unable to, coiled tubing supervisor, ANAHI Jerome notified, she said, "I am unable to come up at this time but will see if some can come up."
[2020-01-01 23:00] VITALS: BP 119/55
[2020-01-02 03:00] VITALS: BP 127/60
[2020-01-02] MEDS: ceFAZolin SODIUM IV Push 1 GM VIAL. IVP SCH ×3 (05:04→23:48)
[2020-01-02 07:35] VITALS: BP 126/60
[2020-01-02 07:42] LABS: BASO # 0.1 x10^3/uL (0.0-0.2); BASO % 1 % (0-3); EOS # 0.2 x10^3/uL (0.0-0.7); EOS % 2 % (0-3); HEMATOCRIT 25.9 % (36.0-47.0); HEMOGLOBIN 8.1 g/dL (12.0-15.5); LYMPH # 1.6 x10^3/uL (1.0-4.8); LYMPH % 19 % (24-48); MEAN CORPUSCULAR HEMOGLOBIN 19 pg (25-35); MEAN CORPUSCULAR HGB CONC 31 g/dL (31-37); MEAN CORPUSCULAR VOLUME 61 fL (79-100); MONO # 0.7 x10^3/uL (0.0-1.1); MONO % 8 % (0-9); NEUT % 70 % (31-73); PLATELET COUNT 235 x10^3/uL (140-400); RED BLOOD COUNT 4.24 x10^6/uL (3.50-5.40); RED CELL DISTRIBUTION WIDTH 17.1 % (11.5-14.5); WHITE BLOOD COUNT 8.6 x10^3/uL (4.0-11.0)
[2020-01-02 08:03] LABS: CALCIUM 8.4 mg/dL (8.5-10.1); CREATININE 1.3 mg/dL (0.6-1.0); GFR 47.2
[2020-01-02 08:48] LABS: OVALOCYTES OCC; PLT ESTIMATE ADEQUATE (ADEQUATE); POIKILOCYTOSIS SLIGHT
[2020-01-02 08:49] LABS: ANISOCYTOSIS MOD; BIZZARE CELLS OCC; MICROCYTOSIS PRESENT; TARGET CELLS FEW
--- NOTE | 2020-01-02 09:28 | PDOC ---
Provider Note Provider Note Pt seen and examined Thank you Justicifation of Admission Dx: Justifications for Admission: Justification of Admission Dx: Comment: (per DR Miles) Cellulitis: Cellulitis TRAV IBARRA MD Jan 02, 2020 09:28
[2020-01-02] MEDS: FUROSEMIDE 40 MG/4 ML VIAL. IVP SCH (09:47)
[2020-01-02] MEDS: CARBIDOPA/LEVODOPA CR 25/100MG TABLET.SA. PO SCH ×3 (09:47→23:47)
[2020-01-02] MEDS: CHOLECALCIFEROL (VITAMIN D3) 1,000 UNIT TABLET PO SCH (09:47)
[2020-01-02] MEDS: APIXABAN 5 MG TABLET. PO SCH ×2 (09:47→23:47)
[2020-01-02] MEDS: PRAMIPEXOLE 0.25 MG TABLET. PO SCH ×3 (09:47→23:47)
--- NOTE | 2020-01-02 09:59 | CONS ---
DATE OF CONSULTATION: 01/02/2020 REFERRING PHYSICIAN: Dr. Farshad Miles. REASON FOR CONSULTATION: Left lower extremity cellulitis. HISTORY OF PRESENT ILLNESS: An 84-year-old female admitted to [facility] with bilateral lower extremity swelling, left greater than the right. The patient is unable to give details. History obtained from chart and medical staff. She denies any history of injury. She states that when her daughter was trying to help her get in the car, there was a little strain after which she had worsening of left lower extremity swelling with redness, pain with underlying chronic swelling. The patient had normal white count, afebrile. Ultrasound showed superficial femoral vein thrombosis. The patient was started on anticoagulation. Also, was started on cefazolin. ID consult has been requested for antibiotic management. Today patient denies any fevers, chills, nausea, vomiting, diarrhea, abdominal pain, symptoms. The patient uses a cane at home, lives with her daughter. PAST MEDICAL HISTORY: CKD, Parkinson's disease, gout, chronic venous insufficiency in both lower extremities, history of thalassemia minor, status post cholecystectomy, history of DVT, left lower extremity with inferior vena cava filter placement. SOCIAL HISTORY: Denies smoking, ETOH. Lives with daughter. Uses a cane at home. ALLERGIES: None. CURRENT MEDICATION: IV cefazolin, Procrit. Other medications reviewed in medication list. REVIEW OF SYSTEMS: Negative except for above in HPI. PHYSICAL EXAMINATION: VITAL SIGNS: Temperature 98.3, pulse 65, respiratory rate 18, blood pressure 126/60, oxygen saturation 98% on room air. GENERAL: Alert, awake female, sitting at the edge of the bed, eating breakfast, in no acute distress. HEENT: Normocephalic, atraumatic, anicteric. No thrush. Oral mucosa moist. NECK: Supple, no JVD, no thyromegaly. LUNGS: Clear bilaterally. No wheezing. HEART: S1, S2. No gallops or murmurs. ABDOMEN: Soft, nontender, nondistended, no rebound, no guarding. LOWER EXTREMITY edema in both lower extremities, more over the left lower extremity with redness, tenderness. No gross open wounds noted. Yeast in feet. DERMATOLOGIC: Warm, dry. No generalized rash. NEUROLOGIC: Alert and oriented x 3, grossly nonfocal. LABORATORY DATA: WBC 8.6, hemoglobin 8.1, hematocrit 25.9, platelets 235. Sodium 144, potassium 4.0, chloride 109, bicarbonate 28, BUN 20, creatinine 1.3, was 1.7, glucose 81. LFTs within normal limits. Albumin 2.9. IMAGING: Left lower extremity Doppler shows thrombus within the duplicated superficial femoral vein on the left, edema of the soft tissue, enlarged lymph node of the left groin, soft tissue swelling. Chest x-ray shows borderline cardiomegaly with interstitial prominence and trace left pleural effusion. MICRO: None. IMPRESSION: 1. Left lower extremity cellulitis 2. History of deep venous thrombosis, left lower extremity.Now with superficial femoral thrombosis 3. Chronic lymphedema. 4. Chronic venous insufficiency. 5. Parkinson's disease. 6. Chronic kidney disease. 7. History of cerebrovascular accident. RECOMMENDATIONS: 1. Continue cefazolin, may need renal dosing for renal function. 2. Elevate left lower extremity. 3. Optimal edema control. 4. Follow labs. 5. Continue supportive care. Thank you, Dr. Miles, for consulting Infectious Disease to participate in this patient's care. If you have any questions, do not hesitate to contact me. Discussed with nursing staff. TRAV IBARRA MD DR: DOMINICK/eri JOB#: [id number] / [id number] LUIS ENRIQUE
--- NOTE | 2020-01-02 10:36 | PDOC ---
Provider Note Provider Note history and physical dictated # [id number] Justicifation of Admission Dx: Justifications for Admission: Justification of Admission Dx: Comment: (per DR Miles) Cellulitis: Cellulitis ELI MILES MD Jan 02, 2020 10:36
[2020-01-02 11:00] VITALS: BP 123/68
--- NOTE | 2020-01-02 11:07 | HP ---
ADMIT DATE: 01/02/2020 LOCATION: Room 536. HISTORY OF PRESENT ILLNESS: The patient is a morbidly obese 84-year-old -[place] female who has a history of Parkinson disease as well as chronic venous insufficiency of lower extremities and anemia of chronic disease, who has chronic kidney disease stage 3 and was admitted to [facility] from my office on 01/01/2020 with a 10-day history of left calf tenderness, redness, and increasing swelling in both legs, but especially the left leg. She takes furosemide 20 mg p.o. daily at home. She does have Parkinson disease and has problems with walking, but no recent falls. There has been no fever. She was therefore admitted from my office for IV antibiotics as well as deep vein thrombosis in the left lower extremity and IV Lasix, for the cellulitis of the left leg and increasing edema of both legs. ALLERGIES AND INTOLERANCES: None. MEDICATIONS: Prior to admission medications include furosemide 20 mg p.o. daily, ferrous sulfate 325 mg every day, Mirapex 0.5 mg t.i.d., Sinemet CR 50/200 mg 1 tablet t.i.d., and vitamin D 1000 units every day. PAST MEDICAL HISTORY: Significant for laparoscopic cholecystectomy in 2016. She has an inferior vena cava filter placed in 2013 for deep vein thrombosis of the left lower extremity, history of chronic gout, thalassemia minor, anemia of chronic disease, Parkinson disease, chronic venous insufficiency of the lower extremities, and chronic kidney disease stage 3. SOCIAL HISTORY: She does not drink alcohol nor does she smoke cigarettes. She uses a walker to ambulate. FAMILY HISTORY: Not contributory. REVIEW OF SYSTEMS: GENERAL: No fever, chills, or sweats in the last 3 days. CARDIOVASCULAR: No chest pain. PULMONARY: No cough or shortness of breath. GASTROINTESTINAL: No constipation. ENDOCRINE: No diabetes mellitus. SKIN: She has got cellulitis in left leg. The rest of systems reviewed are negative except as stated in the history of present illness. PHYSICAL EXAMINATION: VITAL SIGNS: Temperature is 98.2 degrees, apical pulse 65, respiratory rate is 18, blood pressure 126/60, and oxygen saturation 98% on room air. HEENT: Eyes: Gaze is conjugate. Mouth: Tongue is midline. NECK: There is no cervical lymphadenopathy or thyroid enlargement. HEART: Reveals an S1, S2. There is no S3 or murmur. LUNGS: Clear. ABDOMEN: Obese and soft, nontender. EXTREMITIES: Lower extremities, she has got 1+ edema in the right leg and 2+ edema in the left leg. Her edema has already improved just lying supine in bed. Examination of her skin shows some erythema and tenderness in the left calf. She still has 2+ edema in her feet. NEUROLOGIC: Revealed no focal weakness of extremities or facial asymmetry. LABORATORY DATA: Her white count is 8.6; hemoglobin 8.1, was 8.9 yesterday; platelet count 235,000; 70 polys; 19 lymphocytes. Her previous hemoglobin was 9.2; that was in the past on 12/28/2019. She had a hemoglobin of 10.0 in 10/2019, in 07/2019 it was 9.5, so she has been anemic for some time. Sodium 144, potassium 4.0, chloride 109, total CO2 is 20, BUN 20, creatinine 1.3. Yesterday, the BUN was 26 with creatinine 1.7 and calcium 8.4. The albumin was 2.9. Liver function tests were normal. She had a chest x-ray done, which showed borderline cardiomegaly, mild interstitial prominence, trace left pleural effusion, possible interstitial pulmonary edema and then she had a venous Doppler done of the lower extremities which showed a thrombus and a duplicated superficial femoral vein on the left and edema in the soft tissue. EKG showed normal sinus rhythm with no acute change. She had a left bundle-branch block and left axis deviation.. No acute change. ASSESSMENT: 1. Cellulitis, left leg. 2. Deep vein thrombosis of the left superficial femoral vein. 3. Chronic kidney disease stage 3. 4. Parkinson disease. 5. Anemia of chronic disease and history of chronic venous insufficiency of the legs. 6. History of an inferior vena cava filter placed in 2012 for deep vein thrombosis of the left leg. PLAN: At this time is to consult Dr. Linda Taylor, who has already seen the patient for Infectious Disease and agrees with IV cefazolin that was already started. We will continue with the IV Lasix and that is ordered daily. Follow her basic metabolic profile and CBC tomorrow and her magnesium level tomorrow. Discontinue the Lovenox, which had been started on admission for deep vein thrombosis prophylaxis. She will be on Eliquis 10 mg p.o. b.i.d. for 7 days and 5 mg b.i.d. thereafter. She will receive IV Lasix daily and elevate the legs. We will consult Dr. Mirza for Neurology for Parkinson disease. She will receive physical therapy and occupational therapy while she is here. Again, we will continue with IV cefazolin. Continue with her Parkinson medications. ELI ROSALES MD DR: CHEKO/eri JOB#: [id number] / [id number]
[2020-01-02] MEDS ORDERED: ANTI-COAG MONITOR BY PHARMACY. MC PRN (12:30)
--- NOTE | 2020-01-02 13:32 | NUR ---
SW following. Reviewed chart and discussed with RN. Pt from home with her dtr. DULCE called and spoke with pt who stated her dtr is retired and provides 24 hour care. Pt seen by PT/OT and the plan is for pt to return home with family at discharge. Pt on oral medications and room air. DULCE attempted to call pt's dtr Noris but there was no answer or ability to leave a message. SW to follow.
--- NOTE | 2020-01-02 13:39 | PDOC2 ---
NEUROLOGY CONSULT Date of Service DOS: DATE: 01/02/20 TIME: 13:31 Reason for Consult Reason for Consult: Parkinson's Referring Physician Referring Physician: Dr. Miles Source Source: Chart review, Patient History of Present Illness History of Present Illness The patient is an 84-year-old right-handed female whom I follow an office for Parkinson's. She also has chronic leg edema. Off and on we have been trying to get her into inpatient rehab because she is quite debilitated, but have been unsuccessful. She went to Dr. Miles's office yesterday and was directly admitted because of concerns of possible deep venous thrombosis and cellulitis. As for the Parkinson's, the patient has been satisfied with control of, and stiffness. She has had no recent falls. She has no dysphagia. Past Medical History Cardiovascular: HTN ( action), Other ( deep venous thrombosis) CENTRAL NERVOUS SYSTEM: Other (Parkinson's) GI: GI bleed Heme/Onc: Anemia NOS ( of chronic disease, B thalassemia) Endocrine: Other ( vitamin D deficiency) Past Surgical History Past Surgical History: Cholecystectomy ( laparoscopic), Cataract Removal, Other ( IVC filter) Family History Family History: No pertinent hx Social History Social History Retired, no alcohol or tobacco Current Medications Current Medications Current Medications Enoxaparin Sodium (Lovenox 30mg Syringe) 30 mg Q24H SQ Last administered on 01/01/20at 21:47; Start 01/01/20 at 21:00; Stop 01/02/20 at 10:26; Status DC Furosemide (Lasix) 40 mg 1X ONCE IVP ; Start 01/01/20 at 18:30; Stop 01/01/20 at 18:31; Status DC Furosemide (Lasix) 40 mg DAILY IVP Last administered on 01/02/20at 09:47; Start 01/02/20 at 09:00 Cefazolin Sodium 1000 mg/Dextrose 50 ml @ 100 mls/hr Q8HRS IV ; Start 01/01/20 at 22:00; Status UNV Vitamin D (Vitamin D3) 1,000 unit DAILY PO Last administered on 01/02/20at 09:47; Start 01/02/20 at 09:00 Pramipexole Dihydrochloride (miraPEX) 0.5 mg [id number] PO Last administered on 01/02/20at 13:28; Start 01/01/20 at 21:00 Carbidopa/Levodopa (Sinemet Cr) 2 tab.sa TID PO Last administered on 01/02/20at 13:28; Start 01/01/20 at 21:00 Acetaminophen (Tylenol) 500 mg PRN Q4HRS PRN PO MILD PAIN / TEMP > 100.3'F Last administered on 01/01/20at 21:40; Start 01/01/20 at 18:00 Cefazolin Sodium (Ancef) 1 gm Q8HRS IVP Last administered on 01/02/20at 13:29; Start 01/01/20 at 18:30 Apixaban (Eliquis) 10 mg BID PO Last administered on 01/02/20 09:47; Start 01/02/20 at 09:00 Info (Anti-Coagulation Monitoring By Pharmacy) 1 each PRN DAILY PRN MC SEE COMMENTS Last administered on 01/02/20at 12:22; Start 01/02/20 at 12:30 Lactobacillus Rhamnosus (Culturelle) 1 cap BID PO ; Start 01/02/20 at 21:00 Active Scripts Active Reported Mirapex (Pramipexole Di-Hcl) 0.25 Mg Tablet 0.5 Mg PO TID Ferrous Sulfate 325 Mg Tablet 325 Mg PO DAILY Vitamin D3 (Cholecalciferol (Vitamin D3)) 1,000 Unit Tablet 1,000 Unit PO DAILY Sinemet Cr 50-200 Tablet (Carbidopa/Levodopa) 1 Each Tablet.er 1 Tab PO TID Furosemide 20 Mg Tablet 20 Mg PO DAILY Allergies Allergies: Coded Allergies: No Known Drug Allergies (Unverified , 12/14/19) ROS Review of System Negative for fever, chills, weight loss, shortness of breath, chest pain, indigestion, hematochezia, melena, and dysuria. Full 14-point review of systems is negative. Physical Exam Physical Examination General: Well-developed, well-nourished black female in no acute distress HEENT: Normocephalic andatraumatic. Tympanic membranes clear.Temporal arteriespulsatile and nontender.Fundoscopic exam unremarkable Neck: Supple without bruit, no meningismus Musculoskeletal: Stability:see neurologic. Gait exam:see neurologic. Tone:see neurologic.Strength:see neurologic. Neurological: Mental Status:intact, orientation, memory, attention span/concentration, language, fund of knowledge normal. Cranial Nerves:Pupils equal and reactive to light, extraocular movements areintact, visual cheung are full to confrontation. Facial sensation is normal. There is no facial asymmetry. Vestibulo-ocular reflex is intact. Palate elevates and tongue protrudes in midline. All other cranial related problems are negative except as mentioned be fore.Reflexes:2+ and symmetric with flexor plantar responses. Motor:5/5 strength with normal tone and bulk. Coordination:Finger-nose finger and kimp-fi-lctl testing are normal. She has masked facies, cogwheel rigidity, bradykinesia, no tremor. Gait: not tested. Sensory:Normal pinprick, vibration, light touch, proprioception. Vitals VITALS Vital Signs Date Time Temp Pulse Resp B/P (MAP) Pulse Ox O2 Delivery O2 Flow Rate FiO2 01/02/20 11:00 98.2 74 18 123/68 (86) 97 Room Air 98.2 Labs Labs Laboratory Tests Test 01/01/20 18:50 01/02/20 06:45 White Blood Count 10.2 x10^3/uL (4.0-11.0) 8.6 x10^3/uL (4.0-11.0) Red Blood Count 4.56 x10^6/uL (3.50-5.40) 4.24 x10^6/uL (3.50-5.40) Hemoglobin 8.9 g/dL (12.0-15.5) 8.1 g/dL (12.0-15.5) Hematocrit 27.8 % (36.0-47.0) 25.9 % (36.0-47.0) Mean Corpuscular Volume 61 fL (79-100) 61 fL (79-100) Mean Corpuscular Hemoglobin 20 pg (25-35) 19 pg (25-35) Mean Corpuscular Hemoglobin Concent 32 g/dL (31-37) 31 g/dL (31-37) Red Cell Distribution Width 17.3 % (11.5-14.5) 17.1 % (11.5-14.5) Platelet Count 231 x10^3/uL (140-400) 235 x10^3/uL (140-400) Neutrophils (%) (Auto) 78 % (31-73) 70 % (31-73) Lymphocytes (%) (Auto) 14 % (24-48) 19 % (24-48) Monocytes (%) (Auto) 7 % (0-9) 8 % (0-9) Eosinophils (%) (Auto) 1 % (0-3) 2 % (0-3) Basophils (%) (Auto) 0 % (0-3) 1 % (0-3) Neutrophils # (Auto) 8.0 x10^3/uL (1.8-7.7) 6.0 x10^3/uL (1.8-7.7) Lymphocytes # (Auto) 1.4 x10^3/uL (1.0-4.8) 1.6 x10^3/uL (1.0-4.8) Monocytes # (Auto) 0.7 x10^3/uL (0.0-1.1) 0.7 x10^3/uL (0.0-1.1) Eosinophils # (Auto) 0.1 x10^3/uL (0.0-0.7) 0.2 x10^3/uL (0.0-0.7) Basophils # (Auto) 0.0 x10^3/uL (0.0-0.2) 0.1 x10^3/uL (0.0-0.2) Sodium Level 142 mmol/L (136-145) 144 mmol/L (136-145) Potassium Level 4.0 mmol/L (3.5-5.1) 4.0 mmol/L (3.5-5.1) Chloride Level 106 mmol/L (98-107) 109 mmol/L (98-107) Carbon Dioxide Level 28 mmol/L (21-32) 28 mmol/L (21-32) Anion Gap 8 (6-14) 7 (6-14) Blood Urea Nitrogen 26 mg/dL (7-20) 20 mg/dL (7-20) Creatinine 1.7 mg/dL (0.6-1.0) 1.3 mg/dL (0.6-1.0) Estimated GFR (Cockcroft-Gault) 34.6 47.2 BUN/Creatinine Ratio 15 (6-20) Glucose Level 136 mg/dL (70-99) 81 mg/dL (70-99) Calcium Level 9.0 mg/dL (8.5-10.1) 8.4 mg/dL (8.5-10.1) Magnesium Level 2.3 mg/dL (1.8-2.4) Total Bilirubin 0.5 mg/dL (0.2-1.0) Aspartate Amino Transf (AST/SGOT) 12 U/L (15-37) Alanine Aminotransferase (ALT/SGPT) 8 U/L (14-59) Alkaline Phosphatase 57 U/L (46-116) Total Protein 7.1 g/dL (6.4-8.2) Albumin 2.9 g/dL (3.4-5.0) Albumin/Globulin Ratio 0.7 (1.0-1.7) Platelet Estimate Adequate (ADEQUATE) Poikilocytosis Slight Anisocytosis Mod Microcytosis Present Target Cells Few Ovalocytes Occ RBC Morphology Bizarre Forms Occ Iron Level 14 ug/dL (50-170) Total Iron Binding Capacity 121 ug/dL (250-450) Iron Saturation 12 % (15-34) Ferritin 556 ng/mL (8-252) Laboratory Tests Test 01/01/20 18:50 01/02/20 06:45 White Blood Count 10.2 x10^3/uL (4.0-11.0) 8.6 x10^3/uL (4.0-11.0) Red Blood Count 4.56 x10^6/uL (3.50-5.40) 4.24 x10^6/uL (3.50-5.40) Hemoglobin 8.9 g/dL (12.0-15.5) 8.1 g/dL (12.0-15.5) Hematocrit 27.8 % (36.0-47.0) 25.9 % (36.0-47.0) Mean Corpuscular Volume 61 fL (79-100) 61 fL (79-100) Mean Corpuscular Hemoglobin 20 pg (25-35) 19 pg (25-35) Mean Corpuscular Hemoglobin Concent 32 g/dL (31-37) 31 g/dL (31-37) Red Cell Distribution Width 17.3 % (11.5-14.5) 17.1 % (11.5-14.5) Platelet Count 231 x10^3/uL (140-400) 235 x10^3/uL (140-400) Neutrophils (%) (Auto) 78 % (31-73) 70 % (31-73) Lymphocytes (%) (Auto) 14 % (24-48) 19 % (24-48) Monocytes (%) (Auto) 7 % (0-9) 8 % (0-9) Eosinophils (%) (Auto) 1 % (0-3) 2 % (0-3) Basophils (%) (Auto) 0 % (0-3) 1 % (0-3) Neutrophils # (Auto) 8.0 x10^3/uL (1.8-7.7) 6.0 x10^3/uL (1.8-7.7) Lymphocytes # (Auto) 1.4 x10^3/uL (1.0-4.8) 1.6 x10^3/uL (1.0-4.8) Monocytes # (Auto) 0.7 x10^3/uL (0.0-1.1) 0.7 x10^3/uL (0.0-1.1) Eosinophils # (Auto) 0.1 x10^3/uL (0.0-0.7) 0.2 x10^3/uL (0.0-0.7) Basophils # (Auto) 0.0 x10^3/uL (0.0-0.2) 0.1 x10^3/uL (0.0-0.2) Sodium Level 142 mmol/L (136-145) 144 mmol/L (136-145) Potassium Level 4.0 mmol/L (3.5-5.1) 4.0 mmol/L (3.5-5.1) Chloride Level 106 mmol/L (98-107) 109 mmol/L (98-107) Carbon Dioxide Level 28 mmol/L (21-32) 28 mmol/L (21-32) Anion Gap 8 (6-14) 7 (6-14) Blood Urea Nitrogen 26 mg/dL (7-20) 20 mg/dL (7-20) Creatinine 1.7 mg/dL (0.6-1.0) 1.3 mg/dL (0.6-1.0) Estimated GFR (Cockcroft-Gault) 34.6 47.2 BUN/Creatinine Ratio 15 (6-20) Glucose Level 136 mg/dL (70-99) 81 mg/dL (70-99) Calcium Level 9.0 mg/dL (8.5-10.1) 8.4 mg/dL (8.5-10.1) Magnesium Level 2.3 mg/dL (1.8-2.4) Total Bilirubin 0.5 mg/dL (0.2-1.0) Aspartate Amino Transf (AST/SGOT) 12 U/L (15-37) Alanine Aminotransferase (ALT/SGPT) 8 U/L (14-59) Alkaline Phosphatase 57 U/L (46-116) Total Protein 7.1 g/dL (6.4-8.2) Albumin 2.9 g/dL (3.4-5.0) Albumin/Globulin Ratio 0.7 (1.0-1.7) Platelet Estimate Adequate (ADEQUATE) Poikilocytosis Slight Anisocytosis Mod Microcytosis Present Target Cells Few Ovalocytes Occ RBC Morphology Bizarre Forms Occ Iron Level 14 ug/dL (50-170) Total Iron Binding Capacity 121 ug/dL (250-450) Iron Saturation 12 % (15-34) Ferritin 556 ng/mL (8-252) Assessment/Plan Assessment/Plan Impression: Parkinsons, stable on carbidopa/levodopa and pramipexole Deep venous thrombosis Recommendations: Continue current Parkinson's regimen Treat deep venous thrombosis Will likely need long term unit or [facility] rehab which has been our goal for several months. Thank you for letting me help with the patient's care. CRYSTAL CORDON MD Jan 02, 2020 13:39
[2020-01-02] MEDS: ACETAMINOPHEN 500 MG TABLET PO PRN (14:42)
[2020-01-02 15:37] VITALS: BP 134/66
[2020-01-02 19:00] VITALS: BP 126/74
[2020-01-02 23:00] VITALS: BP 130/70
[2020-01-02] MEDS: LACTOBACILLUS RHAMNOSUS GG 1 CAPSULE. PO SCH (23:47)
[2020-01-03 03:00] VITALS: BP 122/59
[2020-01-03] MEDS: ceFAZolin SODIUM IV Push 1 GM VIAL. IVP SCH ×3 (05:04→22:10)
[2020-01-03 06:53] LABS: BASO # 0.1 x10^3/uL (0.0-0.2); BASO % 1 % (0-3); EOS # 0.2 x10^3/uL (0.0-0.7); EOS % 2 % (0-3); HEMATOCRIT 26.8 % (36.0-47.0); HEMOGLOBIN 8.5 g/dL (12.0-15.5); LYMPH # 1.4 x10^3/uL (1.0-4.8); LYMPH % 16 % (24-48); MEAN CORPUSCULAR HEMOGLOBIN 20 pg (25-35); MEAN CORPUSCULAR HGB CONC 32 g/dL (31-37); MEAN CORPUSCULAR VOLUME 61 fL (79-100); MONO # 0.6 x10^3/uL (0.0-1.1); MONO % 7 % (0-9); NEUT # 6.7 x10^3/uL (1.8-7.7); NEUT % 74 % (31-73); PLATELET COUNT 274 x10^3/uL (140-400); RED BLOOD COUNT 4.37 x10^6/uL (3.50-5.40); RED CELL DISTRIBUTION WIDTH 17.2 % (11.5-14.5)
[2020-01-03 07:00] VITALS: BP 137/68
[2020-01-03 07:08] LABS: CALCIUM 8.8 mg/dL (8.5-10.1); CREATININE 1.5 mg/dL (0.6-1.0); MAGNESIUM 2.2 mg/dL (1.8-2.4)
[2020-01-03] MEDS: APIXABAN 5 MG TABLET. PO SCH ×2 (08:58→22:09)
[2020-01-03] MEDS: LACTOBACILLUS RHAMNOSUS GG 1 CAPSULE. PO SCH ×2 (08:58→22:09)
[2020-01-03] MEDS: CARBIDOPA/LEVODOPA CR 25/100MG TABLET.SA. PO SCH ×3 (08:58→22:09)
[2020-01-03] MEDS: CHOLECALCIFEROL (VITAMIN D3) 1,000 UNIT TABLET PO SCH (08:58)
[2020-01-03] MEDS: PRAMIPEXOLE 0.25 MG TABLET. PO SCH ×3 (08:58→22:09)
[2020-01-03] MEDS: FUROSEMIDE 40 MG/4 ML VIAL. IVP SCH (08:59)
--- NOTE | 2020-01-03 09:59 | PDOC ---
Infectious Disease Note Subjective: Subjective Patient feels a little better Still has redness and swelling and pain in the left lower extremity Denies fever, nausea, vomiting, shortness of breath, diarrhea, abdominal pain, Vital Signs: Vital Signs Vital Signs Date Time Temp Pulse Resp B/P (MAP) Pulse Ox O2 Delivery O2 Flow Rate FiO2 01/03/20 07:00 97.8 77 17 137/68 (91) 98 Room Air 97.8 Physical Exam: PHYSICAL EXAM GENERAL: Alert, awake female, lying in bed comfortably in no acute distress. HEENT: Normocephalic, atraumatic, anicteric. No thrush. Oral mucosa moist. NECK: Supple, no JVD, no thyromegaly. LUNGS: Clear bilaterally. No wheezing. HEART: S1, S2. No gallops or murmurs. ABDOMEN: Soft, nontender, nondistended, no rebound, no guarding. LOWER EXTREMITY edema in both lower extremities, more over the left lower extremity with redness, tenderness. No gross open wounds noted. Yeast in feet. DERMATOLOGIC: Warm, dry. No generalized rash. NEUROLOGIC: Alert awake grossly nonfocal. Medications: Inpatient Meds: Current Medications Medications (Trade) Dose Ordered Sig/Kishan Start Time Stop Time Status Last Admin Dose Admin Acetaminophen (Tylenol) 500 mg PRN Q4HRS PRN 01/01/20 18:00 01/02/20 14:42 500 MG Apixaban (Eliquis) 10 mg BID 01/02/20 09:00 01/03/20 08:58 10 MG Carbidopa/Levodopa (Sinemet Cr) 2 tab.sa TID 01/01/20 21:00 01/03/20 08:58 2 TAB.SA Cefazolin Sodium (Ancef) 1 gm Q8HRS 01/01/20 18:30 01/03/20 05:04 1 GM Cefazolin Sodium 1000 mg/Dextrose 50 ml @ 100 mls/hr Q8HRS 01/01/20 22:00 UNV Enoxaparin Sodium (Lovenox 30mg Syringe) 30 mg Q24H 01/01/20 21:00 01/02/20 10:26 DC 01/01/20 21:47 30 MG Furosemide (Lasix) 40 mg DAILY 01/02/20 09:00 01/03/20 08:59 40 MG Info (Anti-Coagulation Monitoring By Pharmacy) 1 each PRN DAILY PRN 01/02/20 12:30 01/02/20 12:22 1 EACH Lactobacillus Rhamnosus (Culturelle) 1 cap BID 01/02/20 21:00 01/03/20 08:58 1 CAP Pramipexole Dihydrochloride (miraPEX) 0.5 mg [id number] 01/01/20 21:00 01/03/20 08:58 0.5 MG Vitamin D (Vitamin D3) 1,000 unit DAILY 01/02/20 09:00 01/03/20 08:58 1,000 UNIT Labs: Lab Laboratory Tests Test 01/03/20 06:10 White Blood Count 9.0 x10^3/uL (4.0-11.0) Red Blood Count 4.37 x10^6/uL (3.50-5.40) Hemoglobin 8.5 g/dL (12.0-15.5) Hematocrit 26.8 % (36.0-47.0) Mean Corpuscular Volume 61 fL (79-100) Mean Corpuscular Hemoglobin 20 pg (25-35) Mean Corpuscular Hemoglobin Concent 32 g/dL (31-37) Red Cell Distribution Width 17.2 % (11.5-14.5) Platelet Count 274 x10^3/uL (140-400) Neutrophils (%) (Auto) 74 % (31-73) Lymphocytes (%) (Auto) 16 % (24-48) Monocytes (%) (Auto) 7 % (0-9) Eosinophils (%) (Auto) 2 % (0-3) Basophils (%) (Auto) 1 % (0-3) Neutrophils # (Auto) 6.7 x10^3/uL (1.8-7.7) Lymphocytes # (Auto) 1.4 x10^3/uL (1.0-4.8) Monocytes # (Auto) 0.6 x10^3/uL (0.0-1.1) Eosinophils # (Auto) 0.2 x10^3/uL (0.0-0.7) Basophils # (Auto) 0.1 x10^3/uL (0.0-0.2) Sodium Level 143 mmol/L (136-145) Potassium Level 4.0 mmol/L (3.5-5.1) Chloride Level 106 mmol/L (98-107) Carbon Dioxide Level 32 mmol/L (21-32) Anion Gap 5 (6-14) Blood Urea Nitrogen 19 mg/dL (7-20) Creatinine 1.5 mg/dL (0.6-1.0) Estimated GFR (Cockcroft-Gault) 40.0 Glucose Level 81 mg/dL (70-99) Calcium Level 8.8 mg/dL (8.5-10.1) Magnesium Level 2.2 mg/dL (1.8-2.4) Objective: Assessment: 1. Left lower extremity cellulitis with underlying superficial femoral thrombosis, improving 2. History of deep venous thrombosis, left lower extremity.Now with superficial femoral thrombosis 3. Chronic lymphedema. 4. Chronic venous insufficiency. 5. Parkinson's disease. 6. Chronic kidney disease. 7. History of cerebrovascular accident. Plan: Plan of Care Continue cefazolin for now When patient is ready for discharge can transition to p.o. Keflex Encouraged to elevate left lower extremity. Optimal edema control. Continue supportive care. Discussed with daughter at bedside and nursing staff TRAV IBARRA MD Jan 03, 2020 09:59
[2020-01-03 11:22] VITALS: BP 136/73
--- NOTE | 2020-01-03 12:07 | PDOC ---
PROGRESS NOTES Assessment Parkinsons, stable on carbidopa/levodopa and pramipexole Deep venous thrombosis, cellulitis Plan Continue current Parkinson's regimen Treat deep venous thrombosis and cellulitis Will likely need correction unit or [facility] rehab Subjective Complains of foot pain Objective Vital Signs Date Time Temp Pulse Resp B/P (MAP) Pulse Ox O2 Delivery O2 Flow Rate FiO2 01/03/20 11:22 98.1 66 17 136/73 (94) 95 Room Air 98.1 Intake and Output 01/03/20 07:00 Intake Total 1490 ml Output Total 1350 ml Balance 140 ml Intake Oral 1490 ml Output Urine Total 1350 ml PHYSICAL EXAM Alert. Oriented to time, place and person. A little unclear on her medical history. PERRL. EOMI. CN: no focal findings. Muscle strength: 5/5 DTR: 2+ Plantar reflex: flexor Gait: not examined in bed. Sensory exam: no abnormal findings. No cerebellar signs elicited. Has masked facies, cogwheel rigidity, bradykinesia, minimal rest tremor of left arm Review of Relevant I have reviewed the following items cathleen (where applicable) has been applied. Labs Laboratory Tests Test 01/01/20 18:50 01/02/20 06:45 01/03/20 06:10 White Blood Count 10.2 x10^3/uL (4.0-11.0) 8.6 x10^3/uL (4.0-11.0) 9.0 x10^3/uL (4.0-11.0) Red Blood Count 4.56 x10^6/uL (3.50-5.40) 4.24 x10^6/uL (3.50-5.40) 4.37 x10^6/uL (3.50-5.40) Hemoglobin 8.9 g/dL (12.0-15.5) 8.1 g/dL (12.0-15.5) 8.5 g/dL (12.0-15.5) Hematocrit 27.8 % (36.0-47.0) 25.9 % (36.0-47.0) 26.8 % (36.0-47.0) Mean Corpuscular Volume 61 fL (79-100) 61 fL (79-100) 61 fL (79-100) Mean Corpuscular Hemoglobin 20 pg (25-35) 19 pg (25-35) 20 pg (25-35) Mean Corpuscular Hemoglobin Concent 32 g/dL (31-37) 31 g/dL (31-37) 32 g/dL (31-37) Red Cell Distribution Width 17.3 % (11.5-14.5) 17.1 % (11.5-14.5) 17.2 % (11.5-14.5) Platelet Count 231 x10^3/uL (140-400) 235 x10^3/uL (140-400) 274 x10^3/uL (140-400) Neutrophils (%) (Auto) 78 % (31-73) 70 % (31-73) 74 % (31-73) Lymphocytes (%) (Auto) 14 % (24-48) 19 % (24-48) 16 % (24-48) Monocytes (%) (Auto) 7 % (0-9) 8 % (0-9) 7 % (0-9) Eosinophils (%) (Auto) 1 % (0-3) 2 % (0-3) 2 % (0-3) Basophils (%) (Auto) 0 % (0-3) 1 % (0-3) 1 % (0-3) Neutrophils # (Auto) 8.0 x10^3/uL (1.8-7.7) 6.0 x10^3/uL (1.8-7.7) 6.7 x10^3/uL (1.8-7.7) Lymphocytes # (Auto) 1.4 x10^3/uL (1.0-4.8) 1.6 x10^3/uL (1.0-4.8) 1.4 x10^3/uL (1.0-4.8) Monocytes # (Auto) 0.7 x10^3/uL (0.0-1.1) 0.7 x10^3/uL (0.0-1.1) 0.6 x10^3/uL (0.0-1.1) Eosinophils # (Auto) 0.1 x10^3/uL (0.0-0.7) 0.2 x10^3/uL (0.0-0.7) 0.2 x10^3/uL (0.0-0.7) Basophils # (Auto) 0.0 x10^3/uL (0.0-0.2) 0.1 x10^3/uL (0.0-0.2) 0.1 x10^3/uL (0.0-0.2) Sodium Level 142 mmol/L (136-145) 144 mmol/L (136-145) 143 mmol/L (136-145) Potassium Level 4.0 mmol/L (3.5-5.1) 4.0 mmol/L (3.5-5.1) 4.0 mmol/L (3.5-5.1) Chloride Level 106 mmol/L (98-107) 109 mmol/L (98-107) 106 mmol/L (98-107) Carbon Dioxide Level 28 mmol/L (21-32) 28 mmol/L (21-32) 32 mmol/L (21-32) Anion Gap 8 (6-14) 7 (6-14) 5 (6-14) Blood Urea Nitrogen 26 mg/dL (7-20) 20 mg/dL (7-20) 19 mg/dL (7-20) Creatinine 1.7 mg/dL (0.6-1.0) 1.3 mg/dL (0.6-1.0) 1.5 mg/dL (0.6-1.0) Estimated GFR (Cockcroft-Gault) 34.6 47.2 40.0 BUN/Creatinine Ratio 15 (6-20) Glucose Level 136 mg/dL (70-99) 81 mg/dL (70-99) 81 mg/dL (70-99) Calcium Level 9.0 mg/dL (8.5-10.1) 8.4 mg/dL (8.5-10.1) 8.8 mg/dL (8.5-10.1) Magnesium Level 2.3 mg/dL (1.8-2.4) 2.2 mg/dL (1.8-2.4) Total Bilirubin 0.5 mg/dL (0.2-1.0) Aspartate Amino Transf (AST/SGOT) 12 U/L (15-37) Alanine Aminotransferase (ALT/SGPT) 8 U/L (14-59) Alkaline Phosphatase 57 U/L (46-116) Total Protein 7.1 g/dL (6.4-8.2) Albumin 2.9 g/dL (3.4-5.0) Albumin/Globulin Ratio 0.7 (1.0-1.7) Platelet Estimate Adequate (ADEQUATE) Poikilocytosis Slight Anisocytosis Mod Microcytosis Present Target Cells Few Ovalocytes Occ RBC Morphology Bizarre Forms Occ Iron Level 14 ug/dL (50-170) Total Iron Binding Capacity 121 ug/dL (250-450) Iron Saturation 12 % (15-34) Ferritin 556 ng/mL (8-252) Laboratory Tests Test 01/03/20 06:10 White Blood Count 9.0 x10^3/uL (4.0-11.0) Red Blood Count 4.37 x10^6/uL (3.50-5.40) Hemoglobin 8.5 g/dL (12.0-15.5) Hematocrit 26.8 % (36.0-47.0) Mean Corpuscular Volume 61 fL (79-100) Mean Corpuscular Hemoglobin 20 pg (25-35) Mean Corpuscular Hemoglobin Concent 32 g/dL (31-37) Red Cell Distribution Width 17.2 % (11.5-14.5) Platelet Count 274 x10^3/uL (140-400) Neutrophils (%) (Auto) 74 % (31-73) Lymphocytes (%) (Auto) 16 % (24-48) Monocytes (%) (Auto) 7 % (0-9) Eosinophils (%) (Auto) 2 % (0-3) Basophils (%) (Auto) 1 % (0-3) Neutrophils # (Auto) 6.7 x10^3/uL (1.8-7.7) Lymphocytes # (Auto) 1.4 x10^3/uL (1.0-4.8) Monocytes # (Auto) 0.6 x10^3/uL (0.0-1.1) Eosinophils # (Auto) 0.2 x10^3/uL (0.0-0.7) Basophils # (Auto) 0.1 x10^3/uL (0.0-0.2) Sodium Level 143 mmol/L (136-145) Potassium Level 4.0 mmol/L (3.5-5.1) Chloride Level 106 mmol/L (98-107) Carbon Dioxide Level 32 mmol/L (21-32) Anion Gap 5 (6-14) Blood Urea Nitrogen 19 mg/dL (7-20) Creatinine 1.5 mg/dL (0.6-1.0) Estimated GFR (Cockcroft-Gault) 40.0 Glucose Level 81 mg/dL (70-99) Calcium Level 8.8 mg/dL (8.5-10.1) Magnesium Level 2.2 mg/dL (1.8-2.4) Medications Current Medications Enoxaparin Sodium (Lovenox 30mg Syringe) 30 mg Q24H SQ Last administered on 01/01/20at 21:47; Start 01/01/20 at 21:00; Stop 01/02/20 at 10:26; Status DC Furosemide (Lasix) 40 mg 1X ONCE IVP ; Start 01/01/20 at 18:30; Stop 01/01/20 at 18:31; Status DC Furosemide (Lasix) 40 mg DAILY IVP Last administered on 01/03/20at 08:59; Start 01/02/20 at 09:00 Cefazolin Sodium 1000 mg/Dextrose 50 ml @ 100 mls/hr Q8HRS IV ; Start 01/01/20 at 22:00; Status UNV Vitamin D (Vitamin D3) 1,000 unit DAILY PO Last administered on 01/03/20 08:58; Start 01/02/20 at 09:00 Pramipexole Dihydrochloride (miraPEX) 0.5 mg [id number] PO Last administered on 01/03/20 08:58; Start 01/01/20 at 21:00 Carbidopa/Levodopa (Sinemet Cr) 2 tab.sa TID PO Last administered on 01/03/20 08:58; Start 01/01/20 at 21:00 Acetaminophen (Tylenol) 500 mg PRN Q4HRS PRN PO MILD PAIN / TEMP > 100.3'F Last administered on 01/02/20at 14:42; Start 01/01/20 at 18:00 Cefazolin Sodium (Ancef) 1 gm Q8HRS IVP Last administered on 01/03/20 05:04; Start 01/01/20 at 18:30 Apixaban (Eliquis) 10 mg BID PO Last administered on 01/03/20at 08:58; Start 01/02/20 at 09:00 Info (Anti-Coagulation Monitoring By Pharmacy) 1 each PRN DAILY PRN MC SEE COMMENTS Last administered on 01/02/20at 12:22; Start 01/02/20 at 12:30 Lactobacillus Rhamnosus (Culturelle) 1 cap BID PO Last administered on at 08:58; Start 01/02/20 at 21:00 Active Scripts Active Reported Mirapex (Pramipexole Di-Hcl) 0.25 Mg Tablet 0.5 Mg PO TID Ferrous Sulfate 325 Mg Tablet 325 Mg PO DAILY Vitamin D3 (Cholecalciferol (Vitamin D3)) 1,000 Unit Tablet 1,000 Unit PO DAILY Sinemet Cr 50-200 Tablet (Carbidopa/Levodopa) 1 Each Tablet.er 1 Tab PO TID Furosemide 20 Mg Tablet 20 Mg PO DAILY Vitals/I & O Vital Sign - Last 24 Hours 01/02/20 01/02/20 01/02/20 01/03/20 15:37 19:00 23:00 00:51 Temp 98.2 98.0 99.4 98.2 98.0 99.4 Pulse 83 66 75 Resp 18 18 16 B/P (MAP) 134/66 (88) 126/74 (91) 130/70 (90) Pulse Ox 95 94 96 O2 Delivery Room Air Room Air Room Air Room Air 01/03/20 01/03/20 01/03/20 03:00 07:00 11:22 Temp 98.9 97.8 98.1 98.9 97.8 98.1 Pulse 72 77 66 Resp 16 17 17 B/P (MAP) 122/59 (80) 137/68 (91) 136/73 (94) Pulse Ox 98 98 95 O2 Delivery Room Air Room Air Room Air Intake and Output 01/02/20 01/02/20 01/03/20 15:00 23:00 07:00 Intake Total 500 ml 630 ml 360 ml Output Total 400 ml 300 ml 650 ml Balance 100 ml 330 ml -290 ml Justicifation of Admission Dx: Justifications for Admission: Justification of Admission Dx: Comment: (per DR Miles) Cellulitis: Cellulitis CRYSTAL CORDON MD Jan 03, 2020 12:07
[2020-01-03 15:00] VITALS: BP 147/71
--- NOTE | 2020-01-03 16:54 | NUR ---
DULCE met with pt and pt's dtr. Pt has been to [facility] in the past but they are not taking LTC Medicaid pending patients at this time. Discharge plan is SNU with potential LTC placement. DULCE encouraged the dtr Noris ([phone]) to complete Medicaid application. DULCE phoned and faxed referral to [facility] at [facility] at request of pt and family. Patient Choice of Vendor form completed. DULCE to follow. Addendum: 01/03/20 at 1659 by MARGOT CARDONA COVID test requested.
--- NOTE | 2020-01-03 17:10 | CARD ---
MR#: [id number] Date of Study: 01/03/2020 Ordering Physician: ELI ROSALES, Referring Physician: ELI ROSALES, Tech: Daniela Paul APPROVED REPORT EXAM: Two-dimensional and M-mode echocardiogram with Doppler and color Doppler. Other Information Quality : AverageHR: 66bpm INDICATION Congestive Heart Failure 2D DIMENSIONS Left Atrium(2D)3.2 (1.6-4.0cm)IVSd1.1 (0.7-1.1cm) Aortic Root(2D)2.8 (2.0-3.7cm)LVDd4.3 (3.9-5.9cm) LVOT Diameter2.0 (1.8-2.4cm)PWd1.1 (0.7-1.1cm) LVDs2.6 (2.5-4.0cm)FS (%) 39.1 % SV58.5 mlLVEF(%)69.9 (>50%) Aortic Valve AoV Peak Salvatore.121.2cm/sAoV VTI25.3cm AO Peak GR.5.9mmHgLVOT Peak Salvatore.112.3cm/s AO Mean GR.3mmHgAVA (VMAX)2.85cm2 Mitral Valve MV E Wrmjebzj39.7cm/sMV DECEL PMNG220ud MV A Yfjtgwku68.3cm/sE/A Ratio0.7 Pulmonary Valve PV Peak Xjikmeaq31.1cm/s Tricuspid Valve TR P. Odxsktzg310ew/sRAP VEOMUUIR1wrHe TR Peak Gr.12jyCzZUOF30ocGh LEFT VENTRICLE The left ventricle is normal size. There is mild concentric left ventricular hypertrophy. The left ve ntricular systolic function is normal and the ejection fraction is within normal range. The Ejection Fraction is 50-55%. There is normal LV segmental wall motion. Transmitral Doppler flow pattern is Gra de I-abnormal relaxation pattern. RIGHT VENTRICLE The right ventricle is normal size. There is normal right ventricular wall thickness. The right ventr icular systolic function is normal. ATRIA The left atrium size is normal. The right atrium size is normal. The interatrial septum is intact wit h no evidence for an atrial septal defect or patent foramen ovale as noted on 2-D or Doppler imaging. AORTIC VALVE The aortic valve is thickened but opens well. Doppler and Color Flow revealed trace aortic regurgitat ion. There is no significant aortic valvular stenosis. Calculated aortic valve area is 3 cm2 with max imum pressure gradient of 8 mmHg and mean pressure gradient of 4 mmHg. MITRAL VALVE The mitral valve is normal in structure and function. There is no evidence of mitral valve prolapse. There is no mitral valve stenosis. Doppler and Color-flow revealed trace mitral regurgitation. TRICUSPID VALVE The tricuspid valve is normal in structure and function. Doppler and Color Flow revealed trace tricus pid regurgitation with an estimated PAP of 31 mmHg. There is no tricuspid valve stenosis. PULMONIC VALVE The pulmonic valve is not well visualized. Doppler and Color Flow revealed no pulmonic valvular regur gitation. There is no pulmonic valvular stenosis. GREAT VESSELS The aortic root is normal in size. The IVC is normal in size and collapses >50% with inspiration. PERICARDIAL EFFUSION There is no evidence of significant pericardial effusion. Critical Notification Critical Value: No <Conclusion> The left ventricular systolic function is normal and the ejection fraction is within normal range. Th e Ejection Fraction is 50-55%. There is normal LV segmental wall motion. Signed by : Cecilio Chavez, Electronically Approved : 01/03/2020 17:10:16
--- NOTE | 2020-01-03 17:16 | PDOC ---
PROGRESS NOTES Date of Service DATE: 01/03/20 TIME: 17:12 Subjective Subjective feels better., has less leg edema. still red and tender right calf with some edema. lab reviewed. Objective Objective Vital Signs Date Time Temp Pulse Resp B/P (MAP) Pulse Ox O2 Delivery O2 Flow Rate FiO2 01/03/20 15:00 98.3 64 16 147/71 (96) 96 Room Air 98.3 Intake and Output 01/03/20 07:00 Intake Total 1490 ml Output Total 1350 ml Balance 140 ml Intake Oral 1490 ml Output Urine Total 1350 ml Physical Exam Abdomen: Soft Heart: Regular rate, Normal S1, Normal S2 Extremities: Other (trace edema right leg. 1 plus edema LLE. tender and red right calf anterior laterally) General: Alert HEENT: Atraumatic Lungs: Clear to auscultation Neuro: Normal gait Psych/Mental Status: Mental status NL Skin: Other (red and tender right en anterior laterally) Assessment Assessment 1. Cellulitis, left leg. 2. Deep vein thrombosis of the left superficial femoral vein. 3. Chronic kidney disease stage 3. 4. Parkinson disease. 5. Anemia of chronic disease and history of chronic venous insufficiency of the legs. 6. History of an inferior vena cava filter placed in 2012 for deep vein thrombosis of the left leg. chronic venous insufficiency of legs Plan Plan of Care continue iv cefazolin continue iv lasix PT and OT screen for [facility] echo report pending continue eliquis Comment Review of Relevant I have reviewed the following items cathleen (where applicable) has been applied. Labs Laboratory Tests Test 01/01/20 18:50 01/02/20 06:45 01/03/20 06:10 White Blood Count 10.2 x10^3/uL (4.0-11.0) 8.6 x10^3/uL (4.0-11.0) 9.0 x10^3/uL (4.0-11.0) Red Blood Count 4.56 x10^6/uL (3.50-5.40) 4.24 x10^6/uL (3.50-5.40) 4.37 x10^6/uL (3.50-5.40) Hemoglobin 8.9 g/dL (12.0-15.5) 8.1 g/dL (12.0-15.5) 8.5 g/dL (12.0-15.5) Hematocrit 27.8 % (36.0-47.0) 25.9 % (36.0-47.0) 26.8 % (36.0-47.0) Mean Corpuscular Volume 61 fL (79-100) 61 fL (79-100) 61 fL (79-100) Mean Corpuscular Hemoglobin 20 pg (25-35) 19 pg (25-35) 20 pg (25-35) Mean Corpuscular Hemoglobin Concent 32 g/dL (31-37) 31 g/dL (31-37) 32 g/dL (31-37) Red Cell Distribution Width 17.3 % (11.5-14.5) 17.1 % (11.5-14.5) 17.2 % (11.5-14.5) Platelet Count 231 x10^3/uL (140-400) 235 x10^3/uL (140-400) 274 x10^3/uL (140-400) Neutrophils (%) (Auto) 78 % (31-73) 70 % (31-73) 74 % (31-73) Lymphocytes (%) (Auto) 14 % (24-48) 19 % (24-48) 16 % (24-48) Monocytes (%) (Auto) 7 % (0-9) 8 % (0-9) 7 % (0-9) Eosinophils (%) (Auto) 1 % (0-3) 2 % (0-3) 2 % (0-3) Basophils (%) (Auto) 0 % (0-3) 1 % (0-3) 1 % (0-3) Neutrophils # (Auto) 8.0 x10^3/uL (1.8-7.7) 6.0 x10^3/uL (1.8-7.7) 6.7 x10^3/uL (1.8-7.7) Lymphocytes # (Auto) 1.4 x10^3/uL (1.0-4.8) 1.6 x10^3/uL (1.0-4.8) 1.4 x10^3/uL (1.0-4.8) Monocytes # (Auto) 0.7 x10^3/uL (0.0-1.1) 0.7 x10^3/uL (0.0-1.1) 0.6 x10^3/uL (0.0-1.1) Eosinophils # (Auto) 0.1 x10^3/uL (0.0-0.7) 0.2 x10^3/uL (0.0-0.7) 0.2 x10^3/uL (0.0-0.7) Basophils # (Auto) 0.0 x10^3/uL (0.0-0.2) 0.1 x10^3/uL (0.0-0.2) 0.1 x10^3/uL (0.0-0.2) Sodium Level 142 mmol/L (136-145) 144 mmol/L (136-145) 143 mmol/L (136-145) Potassium Level 4.0 mmol/L (3.5-5.1) 4.0 mmol/L (3.5-5.1) 4.0 mmol/L (3.5-5.1) Chloride Level 106 mmol/L (98-107) 109 mmol/L (98-107) 106 mmol/L (98-107) Carbon Dioxide Level 28 mmol/L (21-32) 28 mmol/L (21-32) 32 mmol/L (21-32) Anion Gap 8 (6-14) 7 (6-14) 5 (6-14) Blood Urea Nitrogen 26 mg/dL (7-20) 20 mg/dL (7-20) 19 mg/dL (7-20) Creatinine 1.7 mg/dL (0.6-1.0) 1.3 mg/dL (0.6-1.0) 1.5 mg/dL (0.6-1.0) Estimated GFR (Cockcroft-Gault) 34.6 47.2 40.0 BUN/Creatinine Ratio 15 (6-20) Glucose Level 136 mg/dL (70-99) 81 mg/dL (70-99) 81 mg/dL (70-99) Calcium Level 9.0 mg/dL (8.5-10.1) 8.4 mg/dL (8.5-10.1) 8.8 mg/dL (8.5-10.1) Magnesium Level 2.3 mg/dL (1.8-2.4) 2.2 mg/dL (1.8-2.4) Total Bilirubin 0.5 mg/dL (0.2-1.0) Aspartate Amino Transf (AST/SGOT) 12 U/L (15-37) Alanine Aminotransferase (ALT/SGPT) 8 U/L (14-59) Alkaline Phosphatase 57 U/L (46-116) Total Protein 7.1 g/dL (6.4-8.2) Albumin 2.9 g/dL (3.4-5.0) Albumin/Globulin Ratio 0.7 (1.0-1.7) Platelet Estimate Adequate (ADEQUATE) Poikilocytosis Slight Anisocytosis Mod Microcytosis Present Target Cells Few Ovalocytes Occ RBC Morphology Bizarre Forms Occ Iron Level 14 ug/dL (50-170) Total Iron Binding Capacity 121 ug/dL (250-450) Iron Saturation 12 % (15-34) Ferritin 556 ng/mL (8-252) Laboratory Tests Test 01/03/20 06:10 White Blood Count 9.0 x10^3/uL (4.0-11.0) Red Blood Count 4.37 x10^6/uL (3.50-5.40) Hemoglobin 8.5 g/dL (12.0-15.5) Hematocrit 26.8 % (36.0-47.0) Mean Corpuscular Volume 61 fL (79-100) Mean Corpuscular Hemoglobin 20 pg (25-35) Mean Corpuscular Hemoglobin Concent 32 g/dL (31-37) Red Cell Distribution Width 17.2 % (11.5-14.5) Platelet Count 274 x10^3/uL (140-400) Neutrophils (%) (Auto) 74 % (31-73) Lymphocytes (%) (Auto) 16 % (24-48) Monocytes (%) (Auto) 7 % (0-9) Eosinophils (%) (Auto) 2 % (0-3) Basophils (%) (Auto) 1 % (0-3) Neutrophils # (Auto) 6.7 x10^3/uL (1.8-7.7) Lymphocytes # (Auto) 1.4 x10^3/uL (1.0-4.8) Monocytes # (Auto) 0.6 x10^3/uL (0.0-1.1) Eosinophils # (Auto) 0.2 x10^3/uL (0.0-0.7) Basophils # (Auto) 0.1 x10^3/uL (0.0-0.2) Sodium Level 143 mmol/L (136-145) Potassium Level 4.0 mmol/L (3.5-5.1) Chloride Level 106 mmol/L (98-107) Carbon Dioxide Level 32 mmol/L (21-32) Anion Gap 5 (6-14) Blood Urea Nitrogen 19 mg/dL (7-20) Creatinine 1.5 mg/dL (0.6-1.0) Estimated GFR (Cockcroft-Gault) 40.0 Glucose Level 81 mg/dL (70-99) Calcium Level 8.8 mg/dL (8.5-10.1) Magnesium Level 2.2 mg/dL (1.8-2.4) Medications Current Medications Enoxaparin Sodium (Lovenox 30mg Syringe) 30 mg Q24H SQ Last administered on 01/01/20at 21:47; Start 01/01/20 at 21:00; Stop 01/02/20 at 10:26; Status DC Furosemide (Lasix) 40 mg 1X ONCE IVP ; Start 01/01/20 at 18:30; Stop 01/01/20 at 18:31; Status DC Furosemide (Lasix) 40 mg DAILY IVP Last administered on 01/03/20at 08:59; Start 01/02/20 at 09:00 Cefazolin Sodium 1000 mg/Dextrose 50 ml @ 100 mls/hr Q8HRS IV ; Start 01/01/20 at 22:00; Status UNV Vitamin D (Vitamin D3) 1,000 unit DAILY PO Last administered on 01/03/20at 08:58; Start 01/02/20 at 09:00 Pramipexole Dihydrochloride (miraPEX) 0.5 mg [id number] PO Last administered on 01/03/20at 15:18; Start 01/01/20 at 21:00 Carbidopa/Levodopa (Sinemet Cr) 2 tab.sa TID PO Last administered on 01/03/20at 15:18; Start 01/01/20 at 21:00 Acetaminophen (Tylenol) 500 mg PRN Q4HRS PRN PO MILD PAIN / TEMP > 100.3'F Last administered on 01/02/20at 14:42; Start 01/01/20 at 18:00 Cefazolin Sodium (Ancef) 1 gm Q8HRS IVP Last administered on 01/03/20at 15:18; Start 01/01/20 at 18:30 Apixaban (Eliquis) 10 mg BID PO Last administered on 01/03/20at 08:58; Start 01/02/20 at 09:00 Info (Anti-Coagulation Monitoring By Pharmacy) 1 each PRN DAILY PRN MC SEE COMMENTS Last administered on 01/02/20at 12:22; Start 01/02/20 at 12:30 Lactobacillus Rhamnosus (Culturelle) 1 cap BID PO Last administered on 01/03/20at 08:58; Start 01/02/20 at 21:00 Active Scripts Active Reported Mirapex (Pramipexole Di-Hcl) 0.25 Mg Tablet 0.5 Mg PO TID Ferrous Sulfate 325 Mg Tablet 325 Mg PO DAILY Vitamin D3 (Cholecalciferol (Vitamin D3)) 1,000 Unit Tablet 1,000 Unit PO DAILY Sinemet Cr 50-200 Tablet (Carbidopa/Levodopa) 1 Each Tablet.er 1 Tab PO TID Furosemide 20 Mg Tablet 20 Mg PO DAILY Vitals/I & O Vital Sign - Last 24 Hours 01/02/20 01/02/20 01/03/20 01/03/20 19:00 23:00 00:51 03:00 Temp 98.0 99.4 98.9 98.0 99.4 98.9 Pulse 66 75 72 Resp 18 16 16 B/P (MAP) 126/74 (91) 130/70 (90) 122/59 (80) Pulse Ox 94 96 98 O2 Delivery Room Air Room Air Room Air Room Air 01/03/20 01/03/20 01/03/20 01/03/20 07:00 08:00 11:22 15:00 Temp 97.8 98.1 98.3 97.8 98.1 98.3 Pulse 77 66 64 Resp 17 17 16 B/P (MAP) 137/68 (91) 136/73 (94) 147/71 (96) Pulse Ox 98 95 96 O2 Delivery Room Air Room Air Room Air Room Air Intake and Output 801/02/20 01/03/20 15:00 23:00 07:00 Intake Total 500 ml 630 ml 360 ml Output Total 400 ml 300 ml 650 ml Balance 100 ml 330 ml -290 ml Justicifation of Admission Dx: Justifications for Admission: Justification of Admission Dx: Comment: (per DR Miles) Cellulitis: Cellulitis ELI MILES MD Jan 03, 2020 17:16
[2020-01-03 19:00] VITALS: BP 136/70
--- NOTE | 2020-01-03 19:22 | NUR ---
pt refused to allow a COVID swab to be done at this time, will try again later.
[2020-01-03 23:00] VITALS: BP 139/69
[2020-01-04 03:00] VITALS: BP 135/66
[2020-01-04] MEDS: ceFAZolin SODIUM IV Push 1 GM VIAL. IVP SCH ×3 (05:35→21:07)
[2020-01-04 06:49] LABS: BASO % 1 % (0-3); EOS # 0.2 x10^3/uL (0.0-0.7); EOS % 3 % (0-3); HEMOGLOBIN 8.6 g/dL (12.0-15.5); LYMPH # 1.9 x10^3/uL (1.0-4.8); LYMPH % 22 % (24-48); MEAN CORPUSCULAR HEMOGLOBIN 19 pg (25-35); MEAN CORPUSCULAR HGB CONC 32 g/dL (31-37); MEAN CORPUSCULAR VOLUME 61 fL (79-100); MONO # 0.5 x10^3/uL (0.0-1.1); MONO % 6 % (0-9); NEUT # 5.8 x10^3/uL (1.8-7.7); NEUT % 69 % (31-73); PLATELET COUNT 304 x10^3/uL (140-400); RED BLOOD COUNT 4.45 x10^6/uL (3.50-5.40); RED CELL DISTRIBUTION WIDTH 17.1 % (11.5-14.5); WHITE BLOOD COUNT 8.5 x10^3/uL (4.0-11.0)
[2020-01-04 06:55] LABS: CALCIUM 8.8 mg/dL (8.5-10.1); CREATININE 1.1 mg/dL (0.6-1.0); GFR 57.3; POTASSIUM 4.3 mmol/L (3.5-5.1)
[2020-01-04 07:55] VITALS: BP 135/71
--- NOTE | 2020-01-04 09:35 | PDOC ---
Infectious Disease Note Subjective: Subjective Patient feels a little better Still has redness and swelling and pain in the left lower extremity but slowly improving Denies fever, nausea, vomiting, shortness of breath, diarrhea, abdominal pain, Vital Signs: Vital Signs Vital Signs Date Time Temp Pulse Resp B/P (MAP) Pulse Ox O2 Delivery O2 Flow Rate FiO2 01/04/20 07:55 98.2 72 18 135/71 (92) 97 Room Air 98.2 Physical Exam: PHYSICAL EXAM GENERAL: Alert, awake female, lying in bed comfortably in no acute distress. HEENT: Normocephalic, atraumatic, anicteric. No thrush. Oral mucosa moist. NECK: Supple, no JVD, no thyromegaly. LUNGS: Clear bilaterally. No wheezing. HEART: S1, S2. No gallops or murmurs. ABDOMEN: Soft, nontender, nondistended, no rebound, no guarding. LOWER EXTREMITY edema in both lower extremities, more over the left lower extremity with redness, tenderness. No gross open wounds noted. Yeast in feet. DERMATOLOGIC: Warm, dry. No generalized rash. NEUROLOGIC: Alert awake grossly nonfocal. Medications: Inpatient Meds: Current Medications Medications (Trade) Dose Ordered Sig/Kishan Start Time Stop Time Status Last Admin Dose Admin Acetaminophen (Tylenol) 500 mg PRN Q4HRS PRN 01/01/20 18:00 01/02/20 14:42 500 MG Apixaban (Eliquis) 10 mg BID 01/02/20 09:00 01/03/20 22:09 10 MG Carbidopa/Levodopa (Sinemet Cr) 2 tab.sa TID 01/01/20 21:00 01/03/20 22:09 2 TAB.SA Cefazolin Sodium (Ancef) 1 gm Q8HRS 01/01/20 18:30 01/04/20 05:35 1 GM Cefazolin Sodium 1000 mg/Dextrose 50 ml @ 100 mls/hr Q8HRS 01/01/20 22:00 UNV Enoxaparin Sodium (Lovenox 30mg Syringe) 30 mg Q24H 01/01/20 21:00 01/02/20 10:26 DC 01/01/20 21:47 30 MG Furosemide (Lasix) 40 mg DAILY 01/02/20 09:00 01/03/20 08:59 40 MG Info (Anti-Coagulation Monitoring By Pharmacy) 1 each PRN DAILY PRN 01/02/20 12:30 01/02/20 12:22 1 EACH Lactobacillus Rhamnosus (Culturelle) 1 cap BID 01/02/20 21:00 01/03/20 22:09 1 CAP Pramipexole Dihydrochloride (miraPEX) 0.5 mg [id number] 01/01/20 21:00 01/03/20 22:09 0.5 MG Vitamin D (Vitamin D3) 1,000 unit DAILY 01/02/20 09:00 01/03/20 08:58 1,000 UNIT Labs: Lab Laboratory Tests Test 01/04/20 05:50 White Blood Count 8.5 x10^3/uL (4.0-11.0) Red Blood Count 4.45 x10^6/uL (3.50-5.40) Hemoglobin 8.6 g/dL (12.0-15.5) Hematocrit 27.0 % (36.0-47.0) Mean Corpuscular Volume 61 fL (79-100) Mean Corpuscular Hemoglobin 19 pg (25-35) Mean Corpuscular Hemoglobin Concent 32 g/dL (31-37) Red Cell Distribution Width 17.1 % (11.5-14.5) Platelet Count 304 x10^3/uL (140-400) Neutrophils (%) (Auto) 69 % (31-73) Lymphocytes (%) (Auto) 22 % (24-48) Monocytes (%) (Auto) 6 % (0-9) Eosinophils (%) (Auto) 3 % (0-3) Basophils (%) (Auto) 1 % (0-3) Neutrophils # (Auto) 5.8 x10^3/uL (1.8-7.7) Lymphocytes # (Auto) 1.9 x10^3/uL (1.0-4.8) Monocytes # (Auto) 0.5 x10^3/uL (0.0-1.1) Eosinophils # (Auto) 0.2 x10^3/uL (0.0-0.7) Basophils # (Auto) 0.0 x10^3/uL (0.0-0.2) Sodium Level 142 mmol/L (136-145) Potassium Level 4.3 mmol/L (3.5-5.1) Chloride Level 104 mmol/L (98-107) Carbon Dioxide Level 30 mmol/L (21-32) Anion Gap 8 (6-14) Blood Urea Nitrogen 16 mg/dL (7-20) Creatinine 1.1 mg/dL (0.6-1.0) Estimated GFR (Cockcroft-Gault) 57.3 Glucose Level 71 mg/dL (70-99) Calcium Level 8.8 mg/dL (8.5-10.1) Objective: Assessment: 1. Left lower extremity cellulitis with underlying superficial femoral thrombosis, improving 2. History of deep venous thrombosis, left lower extremity.Now with superficial femoral thrombosis 3. Chronic lymphedema. 4. Chronic venous insufficiency. 5. Parkinson's disease. 6. Chronic kidney disease. 7. History of cerebrovascular accident. Plan: Plan of Care Continue cefazolin for now Encouraged to elevate left lower extremity. Optimal edema control. Continue supportive care. Discussed with nursing staff TRAV IBARRA MD Jan 04, 2020 09:34
[2020-01-04] MEDS: CHOLECALCIFEROL (VITAMIN D3) 1,000 UNIT TABLET PO SCH (10:10)
[2020-01-04] MEDS: CARBIDOPA/LEVODOPA CR 25/100MG TABLET.SA. PO SCH ×3 (10:11→21:07)
[2020-01-04] MEDS: PRAMIPEXOLE 0.25 MG TABLET. PO SCH ×3 (10:11→21:08)
[2020-01-04] MEDS: LACTOBACILLUS RHAMNOSUS GG 1 CAPSULE. PO SCH ×2 (10:11→21:07)
[2020-01-04] MEDS: APIXABAN 5 MG TABLET. PO SCH ×2 (10:11→21:07)
[2020-01-04] MEDS: FUROSEMIDE 40 MG/4 ML VIAL. IVP SCH (10:12)
[2020-01-04 11:50] VITALS: BP 147/79
--- NOTE | 2020-01-04 11:57 | PDOC ---
PROGRESS NOTES Date of Service DATE: 01/04/20 TIME: 11:56 Subjective Subjective right leg still hurts in calf. Objective Objective Vital Signs Date Time Temp Pulse Resp B/P (MAP) Pulse Ox O2 Delivery O2 Flow Rate FiO2 01/04/20 11:50 97.9 66 18 147/79 (101) 99 Room Air 97.9 Intake and Output 01/04/20 07:00 Intake Total 650 ml Output Total 2875 ml Balance -2225 ml Intake Oral 650 ml Output Urine Total 2875 ml Physical Exam Abdomen: Soft Heart: Regular rate, Normal S1, Normal S2 Extremities: Other (1 plus edema LLE. DP present both feet) General: Alert HEENT: Atraumatic Lungs: Clear to auscultation Neuro: Normal speech Psych/Mental Status: Mental status NL Skin: Other (redness left lateral calf) Assessment Assessment 1. Cellulitis, left leg. 2. Deep vein thrombosis of the left superficial femoral vein. 3. Chronic kidney disease stage 3. 4. Parkinson disease. 5. Anemia of chronic disease and history of chronic venous insufficiency of the legs. 6. History of an inferior vena cava filter placed in 2012 for deep vein thrombosis of the left leg. chronic venous insufficiency of legs Plan Plan of Care continue iv lasix continue iv cefazolin MARH screen Comment Review of Relevant I have reviewed the following items cathleen (where applicable) has been applied. Labs Laboratory Tests Test 01/03/20 06:10 01/04/20 05:50 White Blood Count 9.0 x10^3/uL (4.0-11.0) 8.5 x10^3/uL (4.0-11.0) Red Blood Count 4.37 x10^6/uL (3.50-5.40) 4.45 x10^6/uL (3.50-5.40) Hemoglobin 8.5 g/dL (12.0-15.5) 8.6 g/dL (12.0-15.5) Hematocrit 26.8 % (36.0-47.0) 27.0 % (36.0-47.0) Mean Corpuscular Volume 61 fL (79-100) 61 fL (79-100) Mean Corpuscular Hemoglobin 20 pg (25-35) 19 pg (25-35) Mean Corpuscular Hemoglobin Concent 32 g/dL (31-37) 32 g/dL (31-37) Red Cell Distribution Width 17.2 % (11.5-14.5) 17.1 % (11.5-14.5) Platelet Count 274 x10^3/uL (140-400) 304 x10^3/uL (140-400) Neutrophils (%) (Auto) 74 % (31-73) 69 % (31-73) Lymphocytes (%) (Auto) 16 % (24-48) 22 % (24-48) Monocytes (%) (Auto) 7 % (0-9) 6 % (0-9) Eosinophils (%) (Auto) 2 % (0-3) 3 % (0-3) Basophils (%) (Auto) 1 % (0-3) 1 % (0-3) Neutrophils # (Auto) 6.7 x10^3/uL (1.8-7.7) 5.8 x10^3/uL (1.8-7.7) Lymphocytes # (Auto) 1.4 x10^3/uL (1.0-4.8) 1.9 x10^3/uL (1.0-4.8) Monocytes # (Auto) 0.6 x10^3/uL (0.0-1.1) 0.5 x10^3/uL (0.0-1.1) Eosinophils # (Auto) 0.2 x10^3/uL (0.0-0.7) 0.2 x10^3/uL (0.0-0.7) Basophils # (Auto) 0.1 x10^3/uL (0.0-0.2) 0.0 x10^3/uL (0.0-0.2) Sodium Level 143 mmol/L (136-145) 142 mmol/L (136-145) Potassium Level 4.0 mmol/L (3.5-5.1) 4.3 mmol/L (3.5-5.1) Chloride Level 106 mmol/L (98-107) 104 mmol/L (98-107) Carbon Dioxide Level 32 mmol/L (21-32) 30 mmol/L (21-32) Anion Gap 5 (6-14) 8 (6-14) Blood Urea Nitrogen 19 mg/dL (7-20) 16 mg/dL (7-20) Creatinine 1.5 mg/dL (0.6-1.0) 1.1 mg/dL (0.6-1.0) Estimated GFR (Cockcroft-Gault) 40.0 57.3 Glucose Level 81 mg/dL (70-99) 71 mg/dL (70-99) Calcium Level 8.8 mg/dL (8.5-10.1) 8.8 mg/dL (8.5-10.1) Magnesium Level 2.2 mg/dL (1.8-2.4) Laboratory Tests Test 01/04/20 05:50 White Blood Count 8.5 x10^3/uL (4.0-11.0) Red Blood Count 4.45 x10^6/uL (3.50-5.40) Hemoglobin 8.6 g/dL (12.0-15.5) Hematocrit 27.0 % (36.0-47.0) Mean Corpuscular Volume 61 fL (79-100) Mean Corpuscular Hemoglobin 19 pg (25-35) Mean Corpuscular Hemoglobin Concent 32 g/dL (31-37) Red Cell Distribution Width 17.1 % (11.5-14.5) Platelet Count 304 x10^3/uL (140-400) Neutrophils (%) (Auto) 69 % (31-73) Lymphocytes (%) (Auto) 22 % (24-48) Monocytes (%) (Auto) 6 % (0-9) Eosinophils (%) (Auto) 3 % (0-3) Basophils (%) (Auto) 1 % (0-3) Neutrophils # (Auto) 5.8 x10^3/uL (1.8-7.7) Lymphocytes # (Auto) 1.9 x10^3/uL (1.0-4.8) Monocytes # (Auto) 0.5 x10^3/uL (0.0-1.1) Eosinophils # (Auto) 0.2 x10^3/uL (0.0-0.7) Basophils # (Auto) 0.0 x10^3/uL (0.0-0.2) Sodium Level 142 mmol/L (136-145) Potassium Level 4.3 mmol/L (3.5-5.1) Chloride Level 104 mmol/L (98-107) Carbon Dioxide Level 30 mmol/L (21-32) Anion Gap 8 (6-14) Blood Urea Nitrogen 16 mg/dL (7-20) Creatinine 1.1 mg/dL (0.6-1.0) Estimated GFR (Cockcroft-Gault) 57.3 Glucose Level 71 mg/dL (70-99) Calcium Level 8.8 mg/dL (8.5-10.1) Medications Current Medications Enoxaparin Sodium (Lovenox 30mg Syringe) 30 mg Q24H SQ Last administered on 01/01/20 21:47; Start 01/01/20 at 21:00; Stop 01/02/20 at 10:26; Status DC Furosemide (Lasix) 40 mg 1X ONCE IVP ; Start 01/01/20 at 18:30; Stop 01/01/20 at 18:31; Status DC Furosemide (Lasix) 40 mg DAILY IVP Last administered on 01/04/20 10:12; Start 01/02/20 at 09:00 Cefazolin Sodium 1000 mg/Dextrose 50 ml @ 100 mls/hr Q8HRS IV ; Start 01/01/20 at 22:00; Status UNV Vitamin D (Vitamin D3) 1,000 unit DAILY PO Last administered on 01/04/20 10:10; Start 01/02/20 at 09:00 Pramipexole Dihydrochloride (miraPEX) 0.5 mg [id number] PO Last administered on 01/04/20 10:11; Start 01/01/20 at 21:00 Carbidopa/Levodopa (Sinemet Cr) 2 tab.sa TID PO Last administered on 01/04/20 10:11; Start 01/01/20 at 21:00 Acetaminophen (Tylenol) 500 mg PRN Q4HRS PRN PO MILD PAIN / TEMP > 100.3'F Last administered on 01/02/20 14:42; Start 01/01/20 at 18:00 Cefazolin Sodium (Ancef) 1 gm Q8HRS IVP Last administered on 01/04/20 05:35; Start 01/01/20 at 18:30 Apixaban (Eliquis) 10 mg BID PO Last administered on 01/04/20 10:11; Start 01/02/20 at 09:00 Info (Anti-Coagulation Monitoring By Pharmacy) 1 each PRN DAILY PRN MC SEE COMMENTS Last administered on 01/02/20at 12:22; Start 01/02/20 at 12:30 Lactobacillus Rhamnosus (Culturelle) 1 cap BID PO Last administered on 01/04/20at 10:11; Start 01/02/20 at 21:00 Active Scripts Active Reported Mirapex (Pramipexole Di-Hcl) 0.25 Mg Tablet 0.5 Mg PO TID Ferrous Sulfate 325 Mg Tablet 325 Mg PO DAILY Vitamin D3 (Cholecalciferol (Vitamin D3)) 1,000 Unit Tablet 1,000 Unit PO DAILY Sinemet Cr 50-200 Tablet (Carbidopa/Levodopa) 1 Each Tablet.er 1 Tab PO TID Furosemide 20 Mg Tablet 20 Mg PO DAILY Vitals/I & O Vital Sign - Last 24 Hours 01/03/20 01/03/20 01/03/20 01/03/20 15:00 19:00 19:45 23:00 Temp 98.3 98.0 98.3 98.3 98.0 98.3 Pulse 64 76 77 Resp 16 16 16 B/P (MAP) 147/71 (96) 136/70 (92) 139/69 (92) Pulse Ox 96 92 98 O2 Delivery Room Air Room Air Room Air Room Air 01/04/20 01/04/20 01/04/20 03:00 07:55 11:50 Temp 98.1 98.2 97.9 98.1 98.2 97.9 Pulse 74 72 66 Resp 16 18 18 B/P (MAP) 135/66 (89) 135/71 (92) 147/79 (101) Pulse Ox 97 97 99 O2 Delivery Room Air Room Air Room Air Intake and Output 01/03/20 01/03/20 01/04/20 15:00 23:00 07:00 Intake Total 600 ml 50 ml 0 ml Output Total 1575 ml 800 ml 500 ml Balance -975 ml -750 ml -500 ml Justicifation of Admission Dx: Justifications for Admission: Justification of Admission Dx: Comment: (per DR Miles) Cellulitis: Cellulitis ELI MILES MD Jan 04, 2020 11:57
--- NOTE | 2020-01-04 12:50 | PDOC ---
PROGRESS NOTES Assessment Parkinsons, stable on carbidopa/levodopa and pramipexole Deep venous thrombosis, cellulitis Plan Continue current Parkinson's regimen Treat deep venous thrombosis and cellulitis care home unit or [facility] rehab Subjective Leg pain is better she says Objective Vital Signs Date Time Temp Pulse Resp B/P (MAP) Pulse Ox O2 Delivery O2 Flow Rate FiO2 01/04/20 11:50 97.9 66 18 147/79 (101) 99 Room Air 97.9 Intake and Output 01/04/20 07:00 Intake Total 650 ml Output Total 2875 ml Balance -2225 ml Intake Oral 650 ml Output Urine Total 2875 ml PHYSICAL EXAM Alert. Oriented to time, place and person. A little unclear on her medical history. PERRL. EOMI. CN: no focal findings. Muscle strength: 5/5 DTR: 2+ Plantar reflex: flexor Gait: not examined in bed. Sensory exam: no abnormal findings. No cerebellar signs elicited. Has masked facies, cogwheel rigidity, bradykinesia, no rest tremor Review of Relevant I have reviewed the following items cathleen (where applicable) has been applied. Labs Laboratory Tests Test 01/03/20 06:10 01/04/20 05:50 White Blood Count 9.0 x10^3/uL (4.0-11.0) 8.5 x10^3/uL (4.0-11.0) Red Blood Count 4.37 x10^6/uL (3.50-5.40) 4.45 x10^6/uL (3.50-5.40) Hemoglobin 8.5 g/dL (12.0-15.5) 8.6 g/dL (12.0-15.5) Hematocrit 26.8 % (36.0-47.0) 27.0 % (36.0-47.0) Mean Corpuscular Volume 61 fL (79-100) 61 fL (79-100) Mean Corpuscular Hemoglobin 20 pg (25-35) 19 pg (25-35) Mean Corpuscular Hemoglobin Concent 32 g/dL (31-37) 32 g/dL (31-37) Red Cell Distribution Width 17.2 % (11.5-14.5) 17.1 % (11.5-14.5) Platelet Count 274 x10^3/uL (140-400) 304 x10^3/uL (140-400) Neutrophils (%) (Auto) 74 % (31-73) 69 % (31-73) Lymphocytes (%) (Auto) 16 % (24-48) 22 % (24-48) Monocytes (%) (Auto) 7 % (0-9) 6 % (0-9) Eosinophils (%) (Auto) 2 % (0-3) 3 % (0-3) Basophils (%) (Auto) 1 % (0-3) 1 % (0-3) Neutrophils # (Auto) 6.7 x10^3/uL (1.8-7.7) 5.8 x10^3/uL (1.8-7.7) Lymphocytes # (Auto) 1.4 x10^3/uL (1.0-4.8) 1.9 x10^3/uL (1.0-4.8) Monocytes # (Auto) 0.6 x10^3/uL (0.0-1.1) 0.5 x10^3/uL (0.0-1.1) Eosinophils # (Auto) 0.2 x10^3/uL (0.0-0.7) 0.2 x10^3/uL (0.0-0.7) Basophils # (Auto) 0.1 x10^3/uL (0.0-0.2) 0.0 x10^3/uL (0.0-0.2) Sodium Level 143 mmol/L (136-145) 142 mmol/L (136-145) Potassium Level 4.0 mmol/L (3.5-5.1) 4.3 mmol/L (3.5-5.1) Chloride Level 106 mmol/L (98-107) 104 mmol/L (98-107) Carbon Dioxide Level 32 mmol/L (21-32) 30 mmol/L (21-32) Anion Gap 5 (6-14) 8 (6-14) Blood Urea Nitrogen 19 mg/dL (7-20) 16 mg/dL (7-20) Creatinine 1.5 mg/dL (0.6-1.0) 1.1 mg/dL (0.6-1.0) Estimated GFR (Cockcroft-Gault) 40.0 57.3 Glucose Level 81 mg/dL (70-99) 71 mg/dL (70-99) Calcium Level 8.8 mg/dL (8.5-10.1) 8.8 mg/dL (8.5-10.1) Magnesium Level 2.2 mg/dL (1.8-2.4) Laboratory Tests Test 01/04/20 05:50 White Blood Count 8.5 x10^3/uL (4.0-11.0) Red Blood Count 4.45 x10^6/uL (3.50-5.40) Hemoglobin 8.6 g/dL (12.0-15.5) Hematocrit 27.0 % (36.0-47.0) Mean Corpuscular Volume 61 fL (79-100) Mean Corpuscular Hemoglobin 19 pg (25-35) Mean Corpuscular Hemoglobin Concent 32 g/dL (31-37) Red Cell Distribution Width 17.1 % (11.5-14.5) Platelet Count 304 x10^3/uL (140-400) Neutrophils (%) (Auto) 69 % (31-73) Lymphocytes (%) (Auto) 22 % (24-48) Monocytes (%) (Auto) 6 % (0-9) Eosinophils (%) (Auto) 3 % (0-3) Basophils (%) (Auto) 1 % (0-3) Neutrophils # (Auto) 5.8 x10^3/uL (1.8-7.7) Lymphocytes # (Auto) 1.9 x10^3/uL (1.0-4.8) Monocytes # (Auto) 0.5 x10^3/uL (0.0-1.1) Eosinophils # (Auto) 0.2 x10^3/uL (0.0-0.7) Basophils # (Auto) 0.0 x10^3/uL (0.0-0.2) Sodium Level 142 mmol/L (136-145) Potassium Level 4.3 mmol/L (3.5-5.1) Chloride Level 104 mmol/L (98-107) Carbon Dioxide Level 30 mmol/L (21-32) Anion Gap 8 (6-14) Blood Urea Nitrogen 16 mg/dL (7-20) Creatinine 1.1 mg/dL (0.6-1.0) Estimated GFR (Cockcroft-Gault) 57.3 Glucose Level 71 mg/dL (70-99) Calcium Level 8.8 mg/dL (8.5-10.1) Medications Current Medications Enoxaparin Sodium (Lovenox 30mg Syringe) 30 mg Q24H SQ Last administered on 01/01/20 21:47; Start 01/01/20 at 21:00; Stop 01/02/20 at 10:26; Status DC Furosemide (Lasix) 40 mg 1X ONCE IVP ; Start 01/01/20 at 18:30; Stop 01/01/20 at 18:31; Status DC Furosemide (Lasix) 40 mg DAILY IVP Last administered on 01/04/20 10:12; Start 01/02/20 at 09:00 Cefazolin Sodium 1000 mg/Dextrose 50 ml @ 100 mls/hr Q8HRS IV ; Start 01/01/20 at 22:00; Status UNV Vitamin D (Vitamin D3) 1,000 unit DAILY PO Last administered on 01/04/20 10:10; Start 01/02/20 at 09:00 Pramipexole Dihydrochloride (miraPEX) 0.5 mg [id number] PO Last administered on 01/04/20 10:11; Start 01/01/20 at 21:00 Carbidopa/Levodopa (Sinemet Cr) 2 tab.sa TID PO Last administered on 01/04/20 10:11; Start 01/01/20 at 21:00 Acetaminophen (Tylenol) 500 mg PRN Q4HRS PRN PO MILD PAIN / TEMP > 100.3'F Last administered on 01/02/20at 14:42; Start 01/01/20 at 18:00 Cefazolin Sodium (Ancef) 1 gm Q8HRS IVP Last administered on 01/04/20 05:35; Start 01/01/20 at 18:30 Apixaban (Eliquis) 10 mg BID PO Last administered on 01/04/20 10:11; Start 01/02/20 at 09:00 Info (Anti-Coagulation Monitoring By Pharmacy) 1 each PRN DAILY PRN MC SEE COMMENTS Last administered on 01/02/20at 12:22; Start 01/02/20 at 12:30 Lactobacillus Rhamnosus (Culturelle) 1 cap BID PO Last administered on 01/04/20at 10:11; Start 01/02/20 at 21:00 Active Scripts Active Reported Mirapex (Pramipexole Di-Hcl) 0.25 Mg Tablet 0.5 Mg PO TID Ferrous Sulfate 325 Mg Tablet 325 Mg PO DAILY Vitamin D3 (Cholecalciferol (Vitamin D3)) 1,000 Unit Tablet 1,000 Unit PO DAILY Sinemet Cr 50-200 Tablet (Carbidopa/Levodopa) 1 Each Tablet.er 1 Tab PO TID Furosemide 20 Mg Tablet 20 Mg PO DAILY Vitals/I & O Vital Sign - Last 24 Hours 01/03/20 01/03/20 01/03/20 01/03/20 15:00 19:00 19:45 23:00 Temp 98.3 98.0 98.3 98.3 98.0 98.3 Pulse 64 76 77 Resp 16 16 16 B/P (MAP) 147/71 (96) 136/70 (92) 139/69 (92) Pulse Ox 96 92 98 O2 Delivery Room Air Room Air Room Air Room Air 01/04/20 01/04/20 01/04/20 03:00 07:55 11:50 Temp 98.1 98.2 97.9 98.1 98.2 97.9 Pulse 74 72 66 Resp 16 18 18 B/P (MAP) 135/66 (89) 135/71 (92) 147/79 (101) Pulse Ox 97 97 99 O2 Delivery Room Air Room Air Room Air Intake and Output 01/03/20 01/03/20 01/04/20 15:00 23:00 07:00 Intake Total 600 ml 50 ml 0 ml Output Total 1575 ml 800 ml 500 ml Balance -975 ml -750 ml -500 ml Justicifation of Admission Dx: Justifications for Admission: Justification of Admission Dx: Comment: (per DR Miles) Cellulitis: Cellulitis CRYSTAL CORDON MD Jan 04, 2020 12:50
[2020-01-04] MEDS: ACETAMINOPHEN 500 MG TABLET PO PRN (13:14)
[2020-01-04 15:56] VITALS: BP 115/61
--- NOTE | 2020-01-04 17:37 | NUR ---
DULCE following. Spoke with RN and reviewed chart. Pt refusing COVID swab which is needed for placement for SNU. Spoke with Che from [facility] and they are reviewing this pt. LVM for dtr x2 to see about COVID swab and completion of Medicaid application. Referral faxed to [facility] rehab at request of Dr. Miles and approval from pt. DULCE to follow.
[2020-01-04 19:00] VITALS: BP 100/59
[2020-01-04 23:00] VITALS: BP 123/69
[2020-01-05 03:00] VITALS: BP 138/74
[2020-01-05 05:19] LABS: CALCIUM 8.9 mg/dL (8.5-10.1); CREATININE 1.5 mg/dL (0.6-1.0); POTASSIUM 4.2 mmol/L (3.5-5.1)
[2020-01-05] MEDS: ceFAZolin SODIUM IV Push 1 GM VIAL. IVP SCH ×2 (06:09→13:26)
[2020-01-05 07:00] VITALS: BP 134/71
--- NOTE | 2020-01-05 08:31 | PDOC ---
PROGRESS NOTES Assessment Parkinsons, stable on carbidopa/levodopa and pramipexole Deep venous thrombosis, cellulitis Plan Continue current Parkinson's regimen Treat deep venous thrombosis and cellulitis [facility] unit or [facility] rehab I will see her as needed over the weekend Objective Vital Signs Date Time Temp Pulse Resp B/P (MAP) Pulse Ox O2 Delivery O2 Flow Rate FiO2 01/05/20 03:00 97.6 70 16 138/74 (95) 95 97.6 01/04/20 20:00 Room Air Intake and Output 01/05/20 07:00 Intake Total 520 ml Output Total 1050 ml Balance -530 ml Intake Oral 520 ml Output Urine Total 1050 ml PHYSICAL EXAM Alert. Oriented to time, place and person. A little unclear on her medical history. PERRL. EOMI. CN: no focal findings. Muscle strength: 4/5 DTR: 2+ Plantar reflex: flexor Gait: not examined in bed. Sensory exam: no abnormal findings. No cerebellar signs elicited. Has masked facies, cogwheel rigidity, bradykinesia, mild rest tremor Review of Relevant I have reviewed the following items cathleen (where applicable) has been applied. Labs Laboratory Tests Test 01/04/20 05:50 01/05/20 04:00 White Blood Count 8.5 x10^3/uL (4.0-11.0) Red Blood Count 4.45 x10^6/uL (3.50-5.40) Hemoglobin 8.6 g/dL (12.0-15.5) Hematocrit 27.0 % (36.0-47.0) Mean Corpuscular Volume 61 fL (79-100) Mean Corpuscular Hemoglobin 19 pg (25-35) Mean Corpuscular Hemoglobin Concent 32 g/dL (31-37) Red Cell Distribution Width 17.1 % (11.5-14.5) Platelet Count 304 x10^3/uL (140-400) Neutrophils (%) (Auto) 69 % (31-73) Lymphocytes (%) (Auto) 22 % (24-48) Monocytes (%) (Auto) 6 % (0-9) Eosinophils (%) (Auto) 3 % (0-3) Basophils (%) (Auto) 1 % (0-3) Neutrophils # (Auto) 5.8 x10^3/uL (1.8-7.7) Lymphocytes # (Auto) 1.9 x10^3/uL (1.0-4.8) Monocytes # (Auto) 0.5 x10^3/uL (0.0-1.1) Eosinophils # (Auto) 0.2 x10^3/uL (0.0-0.7) Basophils # (Auto) 0.0 x10^3/uL (0.0-0.2) Sodium Level 142 mmol/L (136-145) 140 mmol/L (136-145) Potassium Level 4.3 mmol/L (3.5-5.1) 4.2 mmol/L (3.5-5.1) Chloride Level 104 mmol/L (98-107) 103 mmol/L (98-107) Carbon Dioxide Level 30 mmol/L (21-32) 31 mmol/L (21-32) Anion Gap 8 (6-14) 6 (6-14) Blood Urea Nitrogen 16 mg/dL (7-20) 22 mg/dL (7-20) Creatinine 1.1 mg/dL (0.6-1.0) 1.5 mg/dL (0.6-1.0) Estimated GFR (Cockcroft-Gault) 57.3 40.0 Glucose Level 71 mg/dL (70-99) 77 mg/dL (70-99) Calcium Level 8.8 mg/dL (8.5-10.1) 8.9 mg/dL (8.5-10.1) Laboratory Tests Test 01/05/20 04:00 Sodium Level 140 mmol/L (136-145) Potassium Level 4.2 mmol/L (3.5-5.1) Chloride Level 103 mmol/L (98-107) Carbon Dioxide Level 31 mmol/L (21-32) Anion Gap 6 (6-14) Blood Urea Nitrogen 22 mg/dL (7-20) Creatinine 1.5 mg/dL (0.6-1.0) Estimated GFR (Cockcroft-Gault) 40.0 Glucose Level 77 mg/dL (70-99) Calcium Level 8.9 mg/dL (8.5-10.1) Medications Current Medications Enoxaparin Sodium (Lovenox 30mg Syringe) 30 mg Q24H SQ Last administered on 01/01/20at 21:47; Start 01/01/20 at 21:00; Stop 01/02/20 at 10:26; Status DC Furosemide (Lasix) 40 mg 1X ONCE IVP ; Start 01/01/20 at 18:30; Stop 01/01/20 at 18:31; Status DC Furosemide (Lasix) 40 mg DAILY IVP Last administered on 01/04/20 10:12; Start 01/02/20 at 09:00 Cefazolin Sodium 1000 mg/Dextrose 50 ml @ 100 mls/hr Q8HRS IV ; Start 01/01/20 at 22:00; Status UNV Vitamin D (Vitamin D3) 1,000 unit DAILY PO Last administered on 01/04/20 10:10; Start 01/02/20 at 09:00 Pramipexole Dihydrochloride (miraPEX) 0.5 mg [id number] PO Last administered on 01/04/20 21:08; Start 01/01/20 at 21:00 Carbidopa/Levodopa (Sinemet Cr) 2 tab.sa TID PO Last administered on 01/04/20 21:07; Start 01/01/20 at 21:00 Acetaminophen (Tylenol) 500 mg PRN Q4HRS PRN PO MILD PAIN / TEMP > 100.3'F Last administered on 01/04/20 13:14; Start 01/01/20 at 18:00 Cefazolin Sodium (Ancef) 1 gm Q8HRS IVP Last administered on 01/05/20 06:09; Start 01/01/20 at 18:30 Apixaban (Eliquis) 10 mg BID PO Last administered on 01/04/20 21:07; Start 01/02/20 at 09:00 Info (Anti-Coagulation Monitoring By Pharmacy) 1 each PRN DAILY PRN MC SEE COMMENTS Last administered on 01/02/20 12:22; Start 01/02/20 at 12:30 Lactobacillus Rhamnosus (Culturelle) 1 cap BID PO Last administered on 01/04/20 21:07; Start 01/02/20 at 21:00 Active Scripts Active Reported Mirapex (Pramipexole Di-Hcl) 0.25 Mg Tablet 0.5 Mg PO TID Ferrous Sulfate 325 Mg Tablet 325 Mg PO DAILY Vitamin D3 (Cholecalciferol (Vitamin D3)) 1,000 Unit Tablet 1,000 Unit PO DAILY Sinemet Cr 50-200 Tablet (Carbidopa/Levodopa) 1 Each Tablet.er 1 Tab PO TID Furosemide 20 Mg Tablet 20 Mg PO DAILY Vitals/I & O Vital Sign - Last 24 Hours 01/04/20 01/04/20 01/04/20 01/04/20 11:50 15:56 19:00 20:00 Temp 97.9 97.9 98.6 97.9 97.9 98.6 Pulse 66 73 67 Resp 18 18 18 B/P (MAP) 147/79 (101) 115/61 (79) 100/59 (73) Pulse Ox 99 97 93 O2 Delivery Room Air Room Air Room Air 01/04/20 01/05/20 23:00 03:00 Temp 97.6 97.6 97.6 97.6 Pulse 72 70 Resp 16 16 B/P (MAP) 123/69 (87) 138/74 (95) Pulse Ox 94 95 Intake and Output 01/04/20 01/04/20 01/05/20 15:00 23:00 07:00 Intake Total 220 ml 300 ml 0 ml Output Total 800 ml 250 ml Balance 220 ml -500 ml -250 ml Justicifation of Admission Dx: Justifications for Admission: Justification of Admission Dx: Comment: (per DR Miles) Cellulitis: Cellulitis CRYSTAL CORDON MD Jan 05, 2020 08:31
[2020-01-05] MEDS: CHOLECALCIFEROL (VITAMIN D3) 1,000 UNIT TABLET PO SCH (09:13)
[2020-01-05] MEDS: FUROSEMIDE 40 MG/4 ML VIAL. IVP SCH (09:13)
[2020-01-05] MEDS: LACTOBACILLUS RHAMNOSUS GG 1 CAPSULE. PO SCH (09:14)
[2020-01-05] MEDS: PRAMIPEXOLE 0.25 MG TABLET. PO SCH ×2 (09:14→13:26)
[2020-01-05] MEDS: CARBIDOPA/LEVODOPA CR 25/100MG TABLET.SA. PO SCH ×2 (09:14→13:25)
[2020-01-05] MEDS: APIXABAN 5 MG TABLET. PO SCH (09:14)
[2020-01-05] MEDS: ACETAMINOPHEN 500 MG TABLET PO PRN (09:15)
--- NOTE | 2020-01-05 10:25 | PDOC ---
PROGRESS NOTES Date of Service DATE: 01/05/20 TIME: 10:23 Subjective Subjective feels better. lab reviewed. Objective Objective Vital Signs Date Time Temp Pulse Resp B/P (MAP) Pulse Ox O2 Delivery O2 Flow Rate FiO2 01/05/20 07:00 97.9 68 18 134/71 (92) 92 Room Air 97.9 Intake and Output 01/05/20 07:00 Intake Total 520 ml Output Total 1050 ml Balance -530 ml Intake Oral 520 ml Output Urine Total 1050 ml Physical Exam Abdomen: Soft Heart: Regular rate, Normal S1, Normal S2 Extremities: Other (1 plus edmea right calf) General: Alert Lungs: Clear to auscultation Neuro: Normal speech Psych/Mental Status: Mental status NL Skin: Other (less redness and tenderness left ant lateral calf) Assessment Assessment 1. Cellulitis, left leg. 2. Deep vein thrombosis of the left superficial femoral vein. 3. Chronic kidney disease stage 3. 4. Parkinson disease. 5. Anemia of chronic disease and history of chronic venous insufficiency of the legs. 6. History of an inferior vena cava filter placed in 2012 for deep vein thrombosis of the left leg. chronic venous insufficiency of legs Plan Plan of Care continue iv cefazolin continue eliquis dismiss today to CHRISTOPHER Comment Review of Relevant I have reviewed the following items cathleen (where applicable) has been applied. Labs Laboratory Tests Test 01/04/20 05:50 01/05/20 04:00 White Blood Count 8.5 x10^3/uL (4.0-11.0) Red Blood Count 4.45 x10^6/uL (3.50-5.40) Hemoglobin 8.6 g/dL (12.0-15.5) Hematocrit 27.0 % (36.0-47.0) Mean Corpuscular Volume 61 fL (79-100) Mean Corpuscular Hemoglobin 19 pg (25-35) Mean Corpuscular Hemoglobin Concent 32 g/dL (31-37) Red Cell Distribution Width 17.1 % (11.5-14.5) Platelet Count 304 x10^3/uL (140-400) Neutrophils (%) (Auto) 69 % (31-73) Lymphocytes (%) (Auto) 22 % (24-48) Monocytes (%) (Auto) 6 % (0-9) Eosinophils (%) (Auto) 3 % (0-3) Basophils (%) (Auto) 1 % (0-3) Neutrophils # (Auto) 5.8 x10^3/uL (1.8-7.7) Lymphocytes # (Auto) 1.9 x10^3/uL (1.0-4.8) Monocytes # (Auto) 0.5 x10^3/uL (0.0-1.1) Eosinophils # (Auto) 0.2 x10^3/uL (0.0-0.7) Basophils # (Auto) 0.0 x10^3/uL (0.0-0.2) Sodium Level 142 mmol/L (136-145) 140 mmol/L (136-145) Potassium Level 4.3 mmol/L (3.5-5.1) 4.2 mmol/L (3.5-5.1) Chloride Level 104 mmol/L (98-107) 103 mmol/L (98-107) Carbon Dioxide Level 30 mmol/L (21-32) 31 mmol/L (21-32) Anion Gap 8 (6-14) 6 (6-14) Blood Urea Nitrogen 16 mg/dL (7-20) 22 mg/dL (7-20) Creatinine 1.1 mg/dL (0.6-1.0) 1.5 mg/dL (0.6-1.0) Estimated GFR (Cockcroft-Gault) 57.3 40.0 Glucose Level 71 mg/dL (70-99) 77 mg/dL (70-99) Calcium Level 8.8 mg/dL (8.5-10.1) 8.9 mg/dL (8.5-10.1) Laboratory Tests Test 01/05/20 04:00 Sodium Level 140 mmol/L (136-145) Potassium Level 4.2 mmol/L (3.5-5.1) Chloride Level 103 mmol/L (98-107) Carbon Dioxide Level 31 mmol/L (21-32) Anion Gap 6 (6-14) Blood Urea Nitrogen 22 mg/dL (7-20) Creatinine 1.5 mg/dL (0.6-1.0) Estimated GFR (Cockcroft-Gault) 40.0 Glucose Level 77 mg/dL (70-99) Calcium Level 8.9 mg/dL (8.5-10.1) Medications Current Medications Enoxaparin Sodium (Lovenox 30mg Syringe) 30 mg Q24H SQ Last administered on 01/01/20 21:47; Start 01/01/20 at 21:00; Stop 01/02/20 at 10:26; Status DC Furosemide (Lasix) 40 mg 1X ONCE IVP ; Start 01/01/20 at 18:30; Stop 01/01/20 at 18:31; Status DC Furosemide (Lasix) 40 mg DAILY IVP Last administered on 01/05/20 09:13; Start 01/02/20 at 09:00 Cefazolin Sodium 1000 mg/Dextrose 50 ml @ 100 mls/hr Q8HRS IV ; Start 01/01/20 at 22:00; Status UNV Vitamin D (Vitamin D3) 1,000 unit DAILY PO Last administered on 01/05/20 09:13; Start 01/02/20 at 09:00 Pramipexole Dihydrochloride (miraPEX) 0.5 mg [id number] PO Last administered on 01/05/20 09:14; Start 01/01/20 at 21:00 Carbidopa/Levodopa (Sinemet Cr) 2 tab.sa TID PO Last administered on 01/05/20 09:14; Start 01/01/20 at 21:00 Acetaminophen (Tylenol) 500 mg PRN Q4HRS PRN PO MILD PAIN / TEMP > 100.3'F Last administered on 01/05/20 09:15; Start 01/01/20 at 18:00 Cefazolin Sodium (Ancef) 1 gm Q8HRS IVP Last administered on 01/05/20 06:09; Start 01/01/20 at 18:30 Apixaban (Eliquis) 10 mg BID PO Last administered on 01/05/20 09:14; Start 01/02/20 at 09:00 Info (Anti-Coagulation Monitoring By Pharmacy) 1 each PRN DAILY PRN MC SEE COMMENTS Last administered on 01/02/20 12:22; Start 01/02/20 at 12:30 Lactobacillus Rhamnosus (Culturelle) 1 cap BID PO Last administered on 01/05/20 09:14; Start 01/02/20 at 21:00 Active Scripts Active Reported Mirapex (Pramipexole Di-Hcl) 0.25 Mg Tablet 0.5 Mg PO TID Ferrous Sulfate 325 Mg Tablet 325 Mg PO DAILY Vitamin D3 (Cholecalciferol (Vitamin D3)) 1,000 Unit Tablet 1,000 Unit PO DAILY Sinemet Cr 50-200 Tablet (Carbidopa/Levodopa) 1 Each Tablet.er 1 Tab PO TID Furosemide 20 Mg Tablet 20 Mg PO DAILY Vitals/I & O Vital Sign - Last 24 Hours 01/04/20 01/04/20 01/04/20 01/04/20 11:50 15:56 19:00 20:00 Temp 97.9 97.9 98.6 97.9 97.9 98.6 Pulse 66 73 67 Resp 18 18 18 B/P (MAP) 147/79 (101) 115/61 (79) 100/59 (73) Pulse Ox 99 97 93 O2 Delivery Room Air Room Air Room Air 01/04/20 01/05/20 01/05/20 23:00 03:00 07:00 Temp 97.6 97.6 97.9 97.6 97.6 97.9 Pulse 72 70 68 Resp 16 16 18 B/P (MAP) 123/69 (87) 138/74 (95) 134/71 (92) Pulse Ox 94 95 92 O2 Delivery Room Air Intake and Output 01/04/20 01/04/20 01/05/20 15:00 23:00 07:00 Intake Total 220 ml 300 ml 0 ml Output Total 800 ml 250 ml Balance 220 ml -500 ml -250 ml Justicifation of Admission Dx: Justifications for Admission: Justification of Admission Dx: Comment: (per DR Miles) Cellulitis: Cellulitis ELI MILES MD Jan 05, 2020 10:25
[2020-01-05] MEDS ORDERED: CEFAZOLIN SODIUM IVP (10:34)
[2020-01-05] MEDS ORDERED: ACET500T68 PO (10:34)
[2020-01-05] MEDS ORDERED: LACT1CAP19 PO (10:34)
[2020-01-05] MEDS ORDERED: APIX5TAB PO (10:34)
[2020-01-05] MEDS ORDERED: FURO40TA4 PO (10:34)
--- NOTE | 2020-01-05 10:36 | SNU/HH DC ---
DISCHARGE ORDERS DISCHARGE INFORMATION: DISCHARGE DATE: Jan 05, 2020 CONDITION ON DISCHARGE: Stable CODE STATUS: Code Status: Full POST DISCHARGE ORDERS: ACTIVITY ORDERS: Resume previous activity, Activity as tolerated WEIGHT BEARING STATUS: As tolerated DIET AFTER DISCHARGE: Regular WOUND/INCISION CARE: No wound care needed CHECKS AFTER DISCHARGE: CHECKS AFTER DISCHARGE: Check blood press - daily, Weigh Yourself Daily FOLLOW-UP: PHYSICIAN FOLLOW-UP: admit to dr. rosales LAB ORDERS FOR FOLLOW-UP: cbc and bmp and prealbumin 01/05 Additional Instructions: admit to dr. rosales and consult dr. bradley cbc and bmp and prealbumin tomorrow 01/05 TREATMENT/EQUIPMENT ORDERS: ADAPTIVE EQUIPMENT NEEDED: None Physical Therapy For: Evalulation/Treatment Occupational Therapy For: Evaluation/Treatment DISCHARGE MEDICATIONS: Home Meds Active Scripts Lactobacillus Rhamnosus Gg (CULTURELLE) 1 Each Cap.sprink, 1 CAP PO BID for probiotic for 10 Days, #20 CAP Prov:ELI ROSALES MD 01/05/20 Furosemide (FUROSEMIDE) 40 Mg Tablet, 40 MG PO DAILY for leg edema, #30 TAB Prov:ELI ROSALES MD 01/05/20 Acetaminophen (ACETAMINOPHEN) 500 Mg Tablet, 500 MG PO PRN Q4HRS PRN for MILD PAIN / TEMP > 100.3'F, #20 TAB Prov:ELI ROSALES MD 01/05/20 Apixaban (ELIQUIS) 5 Mg Tablet, 10 MG PO BID for DVT, #6 TAB eliquis 10 mg bid thru 01/07. start eliquis 5 mg bid starting 01/08 Prov:ELI ROSALES MD 01/05/20 [ceFAZolin SODIUM IV Push] 1 GM VIAL No Conflict Check, 1 GM IVP Q8HRS for cellulitis for 5 Days, #15 EACH Prov:ELI ROSALES MD 01/05/20 Reported Medications Pramipexole Di-Hcl (MIRAPEX) 0.25 Mg Tablet, 0.5 MG PO TID for Parkinsons, TAB 01/01/20 Ferrous Sulfate (FERROUS SULFATE) 325 Mg Tablet, 325 MG PO DAILY, TAB 11/30/17 Cholecalciferol (Vitamin D3) (VITAMIN D3) 1,000 Unit Tablet, 1000 UNIT PO DAILY, TAB 11/30/17 Carbidopa/Levodopa (SINEMET CR 50-200 TABLET) 1 Each Tablet.er, 1 TAB PO TID, TAB 09/16/15 Discontinued Reported Medications Furosemide (FUROSEMIDE) 20 Mg Tablet, 20 MG PO DAILY 04/27/13 Aspirin (ASPIRIN) 325 Mg Tablet, 325 MG PO DAILY 08/26/16 ELI ROSALES MD Jan 05, 2020 10:36
--- NOTE | 2020-01-05 10:40 | PDOC ---
Provider Note Provider Note discharge summary dictated # [id number] Justicifation of Admission Dx: Justifications for Admission: Justification of Admission Dx: Comment: (per DR Miles) Cellulitis: Cellulitis ELI MILES MD Jan 05, 2020 10:40
--- NOTE | 2020-01-05 11:03 | PDOC ---
Infectious Disease Note Subjective: Subjective Patient feels better Still has redness and swelling and pain in the left lower extremity but slowly improving Denies fever, nausea, vomiting, shortness of breath, diarrhea, abdominal pain, Vital Signs: Vital Signs Vital Signs Date Time Temp Pulse Resp B/P (MAP) Pulse Ox O2 Delivery O2 Flow Rate FiO2 01/05/20 07:00 97.9 68 18 134/71 (92) 92 Room Air 97.9 Physical Exam: PHYSICAL EXAM GENERAL: Alert, awake female, lying in bed comfortably in no acute distress. HEENT: Normocephalic, atraumatic, anicteric. No thrush. Oral mucosa moist. NECK: Supple, no JVD, no thyromegaly. LUNGS: Clear bilaterally. No wheezing. HEART: S1, S2. No gallops or murmurs. ABDOMEN: Soft, nontender, nondistended, no rebound, no guarding. LOWER EXTREMITY edema in both lower extremities, more over the left lower extremity with redness, tenderness. No gross open wounds noted. Yeast in feet. DERMATOLOGIC: Warm, dry. No generalized rash. NEUROLOGIC: Alert awake grossly nonfocal. Medications: Inpatient Meds: Current Medications Medications (Trade) Dose Ordered Sig/Kishan Start Time Stop Time Status Last Admin Dose Admin Acetaminophen (Tylenol) 500 mg PRN Q4HRS PRN 01/01/20 18:00 01/05/20 09:15 500 MG Apixaban (Eliquis) 10 mg BID 01/02/20 09:00 01/05/20 09:14 10 MG Carbidopa/Levodopa (Sinemet Cr) 2 tab.sa TID 01/01/20 21:00 01/05/20 09:14 2 TAB.SA Cefazolin Sodium (Ancef) 1 gm Q8HRS 01/01/20 18:30 01/05/20 06:09 1 GM Cefazolin Sodium 1000 mg/Dextrose 50 ml @ 100 mls/hr Q8HRS 01/01/20 22:00 UNV Enoxaparin Sodium (Lovenox 30mg Syringe) 30 mg Q24H 01/01/20 21:00 01/02/20 10:26 DC 01/01/20 21:47 30 MG Furosemide (Lasix) 40 mg DAILY 01/06/20 09:00 Info (Anti-Coagulation Monitoring By Pharmacy) 1 each PRN DAILY PRN 01/02/20 12:30 01/02/20 12:22 1 EACH Lactobacillus Rhamnosus (Culturelle) 1 cap BID 01/02/20 21:00 01/05/20 09:14 1 CAP Pramipexole Dihydrochloride (miraPEX) 0.5 mg [id number] 01/01/20 21:00 01/05/20 09:14 0.5 MG Vitamin D (Vitamin D3) 1,000 unit DAILY 01/02/20 09:00 01/05/20 09:13 1,000 UNIT Labs: Lab Laboratory Tests Test 01/05/20 04:00 Sodium Level 140 mmol/L (136-145) Potassium Level 4.2 mmol/L (3.5-5.1) Chloride Level 103 mmol/L (98-107) Carbon Dioxide Level 31 mmol/L (21-32) Anion Gap 6 (6-14) Blood Urea Nitrogen 22 mg/dL (7-20) Creatinine 1.5 mg/dL (0.6-1.0) Estimated GFR (Cockcroft-Gault) 40.0 Glucose Level 77 mg/dL (70-99) Calcium Level 8.9 mg/dL (8.5-10.1) Objective: Assessment: 1. Left lower extremity cellulitis with underlying superficial femoral thrombosis, improving 2. History of deep venous thrombosis, left lower extremity.Now with superficial femoral thrombosis 3. Chronic lymphedema. 4. Chronic venous insufficiency. 5. Parkinson's disease. 6. Chronic kidney disease. 7. History of cerebrovascular accident. Plan: Plan of Care Continue cefazolin for now, transition to p.o. Keflex soon Encouraged to elevate left lower extremity. Optimal edema control. Continue supportive care. Patient is ready to be transferred to rehab facility later today Discussed with nursing staff TRAV IBARRA MD Jan 05, 2020 11:03
--- NOTE | 2020-01-05 11:06 | DS ---
DATE OF DISCHARGE: 01/05/2020 CONSULTANTS: Dr. Linda Taylor and Dr. Mirza. FINAL DIAGNOSES: 1. Cellulitis of the left calf. 2. Deep vein thrombosis of the left superficial femoral vein. 3. Chronic kidney disease stage 3. 4. Parkinson's disease. 5. Anemia of chronic disease. 6. Chronic venous insufficiency of the lower extremities. 7. History of an inferior vena cava filter placed in 2013 for deep vein thrombosis in the left leg. 8. Critical illness myopathy. HOSPITAL COURSE: The patient is a morbidly obese 84-year-old -[place] female with a history of Parkinson disease and chronic venous insufficiency of the lower extremities, anemia of chronic disease, who has chronic kidney disease stage 3, admitted to [facility] from my office on 01/01/2020 with a 10-day history of left calf tenderness, redness and increased swelling in both legs, but especially in the left leg. She does take furosemide 20 mg p.o. daily at home. She has Parkinson's disease and uses a walker. She has no recent falls and there has been no fever. She was admitted to [facility] and started on IV cefazolin and a venous Doppler showed that she had a deep vein thrombosis of the left superficial femoral vein and was started on Eliquis. Her cellulitis did improve, although she still has some tenderness and redness in the left calf. She was seen by Dr. Linda Taylor for Infectious Disease and Dr. Mirza for Neurology. We will continue with her Parkinson's medications. The patient also received some IV Lasix for the leg edema which improved and then was placed on oral furosemide starting tomorrow. She will be dismissed to [facility] today for physical and occupational therapy. She will be dismissed on Tylenol 500 mg every 4 hours p.r.n., Eliquis 10 mg b.i.d. through 01/08/2020 and then 5 mg b.i.d. starting 01/09/2020. Cefazolin 1 gram IV every 8 hours for another 5 days, furosemide 40 mg p.o. daily. Lactobacilli one b.i.d. Sinemet 50-200 one tablet t.i.d., vitamin D 1000 units every day, ferrous sulfate 325 mg every day, Mirapex 0.5 mg t.i.d. ELI ROSALES MD DR: Casa JOB#: [id number] / [id number]
[2020-01-05 11:30] VITALS: BP 102/52
--- NOTE | 2020-01-05 12:10 | NUR ---
SW following. Spoke with RN and reviewed chart. Pt refusing COVID swab but it is not required for admission to [facility]. Spoke with Marc and they have accepted this pt. Spoke with Dr. Miles and pt will discharge today. SW phoned and faxed discharge orders and transport is arranged for 1430. Clinicals ready to be sent with pt and RN to call report. Spoke with cari Hamm who is agreeable to the plan. Noris looking at applying for Medicaid and or VA benefits for pt in the home after discharge from [facility]. No further SW needs at this time.
--- NOTE | 2020-01-05 14:51 | NUR ---
report given to Salomón at [facility]. meds and follow up reviewed. prince removed before dc. IV in L FA left in place d/t patient will be receiving IV antibiotics the next 5 days. pt stable upon dc. daughter in room
[2020-01-06] MEDS ORDERED: FUROSEMIDE 40 MG TABLET. PO SCH (09:00)
== END 2020-01-05 14:30 | DRG 299 ==
LOC: 5 NORTH 16:14
PROVIDERS: ADMIT Internal Medicine; ATTEND Internal Medicine
DX: I82.412 Acute embolism and thrombosis of left femoral vein (principal); N17.0 Acute kidney failure with tubular necrosis; L03.116 Cellulitis of left lower limb; G72.81 Critical illness myopathy; N18.3 Chronic kidney disease, stage 3 (moderate); I12.9 Hypertensive chronic kidney disease with stage 1 through stage 4 chronic kidney disease, or unspecified chronic kidney disease; G20 Parkinson's disease; M1A.9XX0 Chronic gout, unspecified, without tophus (tophi); I87.2 Venous insufficiency (chronic) (peripheral); D63.8 Anemia in other chronic diseases classified elsewhere; I89.0 Lymphedema, not elsewhere classified; E66.01 Morbid (severe) obesity due to excess calories; Z90.49 Acquired absence of other specified parts of digestive tract; Z86.718 Personal history of other venous thrombosis and embolism; Z86.73 Personal history of transient ischemic attack (TIA), and cerebral infarction without residual deficits; Z79.01 Long term (current) use of anticoagulants; Z79.899 Other long term (current) drug therapy
CPT/HCPCS: 36415; 71045; 80048; 80053; 82728; 83540; 83550; 83735; 85025; 93005; 93306; 93970; J0690; J1650; J1940; 97110-GP; 97530-GO; 97530-GP; 97535-GO; G0378

== ENCOUNTER → 2020-07-10 | Outpatient (CLI) | payer MEDICARE, OTHER ==
[2020-06-26 13:07] VITALS: BP 104/62
[~2020-07-10] MED LIST changes: +ACET500T68 PO; +AMLO-186 PO; -AMLO5TAB10 PO; +APIX5TAB PO; +CEFAZOLIN SODIUM IVP; +FURO40TA4 PO; +LACT1CAP19 PO; +PRAM0.255 PO
--- NOTE | 2020-07-10 15:50 | RAD ---
US BILATERAL LOWEREXTREMITY VENOUS DOPPLER History: Reason: Acute DVT Femoral Vein Left Lower Extremity / Spl. Instructions: Patient is on blood thinner / History: Comparison: January 01, 2020 Discussion: Multiple longitudinal and transverse high resolution real-time images of the venous system of bilater al lower extremity were obtained with color and Doppler sampling. Right lower extremity: Nonocclusive thrombus within the right common femoral vein. Left lower extremity: Nonocclusive thrombus within the left common femoral, superficial femoral, popl iteal and calf veins. Impression: 1. Nonocclusive deep vein thrombus bilaterally. Electronically signed by: Darvin Guajardo DO (07/10/2020 3:47 PM) [facility]
== END ==
LOC: US 14:02
PROVIDERS: ATTEND Internal Medicine
DX: I82.413 Acute embolism and thrombosis of femoral vein, bilateral (principal); I82.432 Acute embolism and thrombosis of left popliteal vein; I82.4Z2 Acute embolism and thrombosis of unspecified deep veins of left distal lower extremity
CPT/HCPCS: 93970

== ENCOUNTER 2020-07-28 08:28 | Emergency (ER) | payer MEDICARE, OTHER ==
[~2020-07-28] VITALS: Ht 165.1 cm; Wt 75.0 kg
--- NOTE | 2020-07-28 08:53 | PHYS DOC ---
Past Medical History Past Medical History: DVT, Hypertension, Other Additional Past Medical Histor: parkinsons Past Surgical History: Cholecystectomy Additional Past Surgical Histo: cataract,gout, IVC filter Smoking Status: Never Smoker Alcohol Use: None Drug Use: None General Adult EDM: Chief Complaint: LOWER EXT PAIN HPI: HPI: Patient is a 85 year old female who was brought here by her family for evaluation of left ankle pain. Patient has history of lymphedema for several years now. Patient also had DVT, on Eliquis at this time. Patient says she started having a wound on her left lower leg about 4 days ago, there was some drainage from the wound. Patient was seen by her family physician who prescribed her doxycycline and Keflex. Patient has been taking the medications and the wound actually getting better. Patient presented to ER today because of the pain in her left ankle, denies any injury. Patient denies any chest pain, no abdominal pain, no trouble breathing. Patient denies any fever Review of Systems: Review of Systems: Constitutional: Denies fever or chills. [] Eyes: Denies change in visual acuity. [] HENT: Denies nasal congestion or sore throat. [] Respiratory: Denies cough or shortness of breath. [] Cardiovascular: Denies chest pain or edema. [] GI: Denies abdominal pain, nausea, vomiting, bloody stools or diarrhea. [] : Denies dysuria. [] Musculoskeletal: Positive for left leg pain, left ankle pain Integument: Denies rash. [] Neurologic: Denies headache, focal weakness or sensory changes. [] Endocrine: Denies polyuria or polydipsia. [] Lymphatic: Denies swollen glands. [] Psychiatric: Denies depression or anxiety. [] Heart Score: C/O Chest Pain: N/A Risk Factors: Risk Factors: DM, Current or recent (<one month) smoker, HTN, HLP, family history of CAD, obesity. Risk Scores: Score 0 - 3: 2.5% MACE over next 6 weeks - Discharge Home Score 4 - 6: 20.3% MACE over next 6 weeks - Admit for Clinical Observation Score 7 - 10: 72.7% MACE over next 6 weeks - Early Invasive Strategies Allergies: Allergies: Allergies Coded Allergies Type Severity Reaction Last Updated Verified No Known Drug Allergies 07/26/20 No Physical Exam: PE: Constitutional: Well developed, well nourished, no acute distress, non-toxic appearance. [] HENT: Normocephalic, atraumatic, bilateral external ears normal, oropharynx moist, no oral exudates, nose normal. [] Eyes: PERRLA, EOMI, conjunctiva normal, no discharge. [] Neck: Normal range of motion, no tenderness, supple, no stridor. [] Cardiovascular:Heart rate regular rhythm, no murmur [] Lungs & Thorax: Bilateral breath sounds clear to auscultation [] Abdomen: Bowel sounds normal, soft, no tenderness, no masses, no pulsatile masses. [] Skin: Warm, dry, no erythema, no rash. [] Back: No tenderness, no CVA tenderness. [] Extremities: left leg is swollen and bigger than the right leg, left leg with erythema, there is no drainage from the wound on lateral part of left leg. Neurologic: Alert and oriented X 3, normal motor function, normal sensory function, no focal deficits noted. [] Psychologic: Affect normal, judgement normal, mood normal. [] Current Patient Data: Labs: Laboratory Tests Test 07/28/20 08:50 White Blood Count 9.1 x10^3/uL Red Blood Count 5.53 x10^6/uL Hemoglobin 10.9 g/dL Hematocrit 35.1 % Mean Corpuscular Volume 63 fL Mean Corpuscular Hemoglobin 20 pg Mean Corpuscular Hemoglobin Concent 31 g/dL Red Cell Distribution Width 18.9 % Platelet Count 202 x10^3/uL Neutrophils (%) (Auto) 83 % Lymphocytes (%) (Auto) 11 % Monocytes (%) (Auto) 6 % Eosinophils (%) (Auto) 0 % Basophils (%) (Auto) 1 % Neutrophils # (Auto) 7.5 x10^3/uL Lymphocytes # (Auto) 1.0 x10^3/uL Monocytes # (Auto) 0.5 x10^3/uL Eosinophils # (Auto) 0.0 x10^3/uL Basophils # (Auto) 0.1 x10^3/uL Platelet Estimate Adequate Hypochromasia Present Anisocytosis Slight Target Cells Occ Sodium Level 140 mmol/L Potassium Level 4.1 mmol/L Chloride Level 103 mmol/L Carbon Dioxide Level 27 mmol/L Anion Gap 10 Blood Urea Nitrogen 27 mg/dL Creatinine 1.3 mg/dL Estimated GFR (Cockcroft-Gault) 47.1 BUN/Creatinine Ratio 21 Glucose Level 92 mg/dL Calcium Level 9.1 mg/dL Magnesium Level 2.0 mg/dL Total Bilirubin 0.7 mg/dL Aspartate Amino Transf (AST/SGOT) 11 U/L Alanine Aminotransferase (ALT/SGPT) 9 U/L Alkaline Phosphatase 58 U/L C-Reactive Protein, Quantitative 46.5 mg/L Total Protein 7.8 g/dL Albumin 3.3 g/dL Albumin/Globulin Ratio 0.7 Current Medications Medications (Trade) Dose Ordered Sig/Kishan Route PRN Reason Start Time Stop Time Status Last Admin Dose Admin Morphine Sulfate (Morphine Sulfate) 4 mg 1X ONCE IV 07/28/20 09:00 07/28/20 09:01 DC 07/28/20 09:09 Fentanyl Citrate (Fentanyl 2ml Vial) 100 mcg 1X ONCE IVP 07/28/20 10:45 07/28/20 10:46 DC 07/28/20 10:58 EKG: EKG: [] Radiology/Procedures: Radiology/Procedures: [] Course & Med Decision Making: Course & Med Decision Making Pertinent Labs and Imaging studies reviewed. (See chart for details) Patient is an 85-year-old female who presented to ER due to left leg swelling, patient is currently under treatment with Keflex and doxycycline by her doctor due to cellulitis, per her daughter the wound looks much better. The reason she came in because she had pain and Tylenol is not helping the pain. Patient denies any chest pain, no abdominal pain, no trouble breathing. Patient lab work was nonsignificant. Discussed with her family physician who okay for her to go home, we will prescribe her pain medication, she is scheduled to see her doctor in 4 days. Ronel Disclaimer: Ronel Disclaimer: This electronic medical record was generated, in whole or in part, using a voice recognition dictation system. Departure Departure Impression: Primary Impression: Left leg cellulitis Additional Impression: Leg pain Disposition: 01 DC HOME SELF CARE/HOMELESS Condition: STABLE Referrals: ELI ROSALES MD (PCP) Follow up with your doctor as scheduled next week Patient Instructions: Cellulitis, Leg Cramps Additional Instructions: Please continue your antibiotics take pain medication as needed follow up with your doctor as scheduled next week. Scripts Hydrocodone/Acetaminophen (Hydrocodone-Acetamin 5-325 mg) 1 Each Tablet 1 EACH PO Q6HRS PRN for PAIN, #12 TAB Prov: MARGARETTE ESCALANTE DO 07/28/20 MARGARETTE ESCALANTE DO Jul 28, 2020 08:53
[2020-07-28] MEDS ORDERED: MORPHINE SULFATE 4 MG/ML VIAL. IV ONE (09:00)
[2020-07-28 09:01] LABS: BASO # 0.1 x10^3/uL (0.0-0.2); BASO % 1 % (0-3); EOS % 0 % (0-3); HEMATOCRIT 35.1 % (36.0-47.0); HEMOGLOBIN 10.9 g/dL (12.0-15.5); LYMPH % 11 % (24-48); MEAN CORPUSCULAR HEMOGLOBIN 20 pg (25-35); MEAN CORPUSCULAR HGB CONC 31 g/dL (31-37); MEAN CORPUSCULAR VOLUME 63 fL (79-100); MONO # 0.5 x10^3/uL (0.0-1.1); MONO % 6 % (0-9); NEUT # 7.5 x10^3/uL (1.8-7.7); NEUT % 83 % (31-73); PLATELET COUNT 202 x10^3/uL (140-400); RED BLOOD COUNT 5.53 x10^6/uL (3.50-5.40); RED CELL DISTRIBUTION WIDTH 18.9 % (11.5-14.5); WHITE BLOOD COUNT 9.1 x10^3/uL (4.0-11.0)
[2020-07-28] MEDS ORDERED: DOXY100C2 PO (09:06)
[2020-07-28 09:13] LABS: CALCIUM 9.1 mg/dL (8.5-10.1); CREATININE 1.3 mg/dL (0.6-1.0); GFR 47.1; POTASSIUM 4.1 mmol/L (3.5-5.1)
[2020-07-28 09:19] LABS: ALBUMIN 3.3 g/dL (3.4-5.0); ALBUMIN/GLOBULIN RATIO 0.7 (1.0-1.7); C-REACTIVE PROTEIN 46.5 mg/L (0-3.3); TOTAL BILIRUBIN 0.7 mg/dL (0.2-1.0); TOTAL PROTEIN 7.8 g/dL (6.4-8.2)
[2020-07-28 09:57] LABS: ANISOCYTOSIS SLIGHT; HYPOCHROMIA PRESENT; PLT ESTIMATE ADEQUATE (ADEQUATE); TARGET CELLS OCC
[2020-07-28 10:13] VITALS: BP 134/73
[2020-07-28] MEDS ORDERED: fentaNYL PF VIAL 100 MCG/2 ML VIAL IVP ONE (10:45)
[2020-07-28] MEDS ORDERED: HYDR-2759 PO (11:29)
== END 2020-07-28 11:40 | disposition home or self-care (01) ==
LOC: ER 08:28
DX: L03.116 Cellulitis of left lower limb (principal); M25.572 Pain in left ankle and joints of left foot; I89.0 Lymphedema, not elsewhere classified; I10 Essential (primary) hypertension; Z90.49 Acquired absence of other specified parts of digestive tract; Z98.890 Other specified postprocedural states; Z86.718 Personal history of other venous thrombosis and embolism
CPT/HCPCS: 36415; 80053; 83735; 85025; 86140; 96374; 96375; 99284; J2270; J3010

== ENCOUNTER 2020-08-02 16:43 | Inpatient (IN) | payer MEDICARE, OTHER ==
[~2020-08-02] VITALS: Ht 166.4 cm; Wt 74.8 kg
[~2020-08-02 16:43] MED LIST changes: +DOXY100C2 PO; +HYDR-2759 PO
[2020-08-02] MEDS: PIPERACILLIN/TAZOBACTAM 3.375 GM in IV NORMAL SALINE 50ML 50 ML IV SCH (18:00)
[2020-08-02 18:18] VITALS: BP 144/75
--- NOTE | 2020-08-02 18:59 | RAD ---
AP chest. HISTORY: Short of breath AP view was taken of the chest. There is mild arthritis in both shoulders. There is no pneumothorax o r pleural effusion. Heart is normal in size. The aorta is tortuous. There are no acute infiltrates. IMPRESSION: 1. No acute infiltrates. Electronically signed by: Conrado Dillon MD (08/02/2020 6:57 PM) [facility]
[2020-08-02 19:00] VITALS: BP 140/64
--- NOTE | 2020-08-02 21:11 | RAD ---
US BILATERAL LOWEREXTREMITY VENOUS DOPPLER 08/02/2020 7:56 PM Clinical Information: Swelling. Known DVT. Comparison: 03/12/2020. Technique: Multiple grayscale, color Doppler, and spectral Doppler sonographic images of the lower ex tremity venous structures were obtained. Findings: Partial thrombus identified within the right common femoral vein. The right superficial femoral vein and popliteal veins exhibit normal compression, respiratory phasicity, and augmentation. No intralumi nal thrombi are identified. Color Doppler flow is demonstrated in the right posterior tibial veins. Partial nonocclusive thrombus identified in the left common femoral vein and superficial femoral vein . The left popliteal veins exhibit normal compression, respiratory phasicity, and augmentation. No in traluminal thrombi are identified. Color posterior tibial vein not visualized. Greater saphenous veins are patent at the saphenofemoral junction. There is diffuse subcutaneous yvrose a. Impression: 1. There is new partial thrombus identified within the right common femoral vein and left common femo ral vein. Chronic DVT identified in the left superficial femoral vein. FOR INTERNAL CODING PURPOSES Critical result: Findings discussed with Nay, the patient's nurse at 08/02/2020 9:08 PM. RESULT CODE: (C) Electronically signed by: Tyra Perea MD (08/02/2020 9:09 PM) [facility]
--- NOTE | 2020-08-02 21:20 | EKG ---
[facility] [address] [place] [address] Test Date: 2020-08-02 Test Time: 21:15:41 Pat Name: JACKIE GROVES Department: Room: 404 Gender: F Medical Sales: JESUSITA : 1935 Requested By: ELI ROSALES Order Number: [id number] Reading MD: Measurements Intervals [place] Rate: 77 P: -10 FL: 144 QRS: -31 QRSD: 124 T: 116 QT: 396 QTc: 450 Interpretive Statements SINUS RHYTHM ABNORMAL LEFT AXIS DEVIATION LVH WITH REPOLARIZATION ABNORMALITY QRS(T) CONTOUR ABNORMALITY CONSISTENT WITH INFERIOR INFARCT PROBABLY OLD ABNORMAL ECG RI6.01 Compared to ECG 01/01/2020 20:56:34 Left ventricular hypertrophy now present Early repolarization now present Myocardial infarct finding now present Left bundle-branch block no longer present
[2020-08-02 21:30] LABS: BASO # 0.1 x10^3/uL (0.0-0.2); BASO % 1 % (0-3); EOS # 0.1 x10^3/uL (0.0-0.7); EOS % 1 % (0-3); HEMATOCRIT 29.5 % (36.0-47.0); HEMOGLOBIN 9.2 g/dL (12.0-15.5); LYMPH # 0.8 x10^3/uL (1.0-4.8); LYMPH % 12 % (24-48); MEAN CORPUSCULAR HEMOGLOBIN 19 pg (25-35); MEAN CORPUSCULAR HGB CONC 31 g/dL (31-37); MEAN CORPUSCULAR VOLUME 62 fL (79-100); MONO # 0.6 x10^3/uL (0.0-1.1); MONO % 9 % (0-9); NEUT # 5.3 x10^3/uL (1.8-7.7); NEUT % 77 % (31-73); PLATELET COUNT 295 x10^3/uL (140-400); RED BLOOD COUNT 4.73 x10^6/uL (3.50-5.40); RED CELL DISTRIBUTION WIDTH 18.7 % (11.5-14.5); WHITE BLOOD COUNT 6.9 x10^3/uL (4.0-11.0)
[2020-08-02] MEDS: APIXABAN 5 MG TABLET. PO SCH (21:35)
[2020-08-02] MEDS: CARBIDOPA/LEVODOPA CR 25/100MG TABLET.SA. PO SCH (21:36)
[2020-08-02] MEDS: PRAMIPEXOLE 0.25 MG TABLET. PO SCH (21:36)
[2020-08-02 22:28] LABS: ALBUMIN 2.5 g/dL (3.4-5.0); ALBUMIN/GLOBULIN RATIO 0.6 (1.0-1.7); CALCIUM 8.8 mg/dL (8.5-10.1); CREATININE 1.6 mg/dL (0.6-1.0); GFR 37.1; MAGNESIUM 2.1 mg/dL (1.8-2.4); POTASSIUM 4.4 mmol/L (3.5-5.1); TOTAL BILIRUBIN 0.4 mg/dL (0.2-1.0); TOTAL PROTEIN 6.9 g/dL (6.4-8.2)
[2020-08-02 23:00] VITALS: BP 119/60
--- NOTE | 2020-08-02 23:43 | RAD ---
Realtime grayscale and color Duplex Doppler ultrasonography of the bilateral lower extremities was pe rformed. History: swelling Comparison: None. Findings: Right: Common femoral artery peak systolic velocity measures 214 cm/s. Profunda femoris artery peak systolic velocity measures 174 cm/s. Proximal superficial femoral artery peak systolic velocity measures 165 cm/s. Mid superficial femoral artery peak systolic velocity measures 129 cm/s. Distal superficial femoral artery peak systolic velocity measures 173 cm/s. Popliteal artery peak systolic velocity measures 95 cm/s. Posterior tibial artery peak systolic velocity measures 68 cm/s. Dorsalis pedis artery peak systolic velocity measures 90 cm/s. Biphasic waveforms throughout the right lower extremity. Left: Common femoral artery peak systolic velocity measures 222 cm/s. Profunda femoris artery peak systolic velocity measures 188 cm/s. Proximal superficial femoral artery peak systolic velocity measures 198 cm/s. Mid superficial femoral artery peak systolic velocity measures 165 cm/s. Distal superficial femoral artery peak systolic velocity measures 152 cm/s with monophasic waveforms. Popliteal artery peak systolic velocity measures 141 cm/s with monophasic waveform. Posterior tibial artery peak systolic velocity measures 66 cm/s with monophasic waveforms. Dorsalis pedis artery peak systolic velocity measures 57 cm/s with monophasic waveforms. Impression: Regions of elevated velocities in the bilateral lower extremities, greatest on the left as detailed a desirae. Monophasic waves forms distally within the left lower extremity consistent with a proximal sten osis. Electronically signed by: Hany Levi MD (08/02/2020 11:41 PM) [id number]
[2020-08-03] MEDS: PIPERACILLIN/TAZOBACTAM 3.375 GM in IV NORMAL SALINE 50ML 50 ML IV SCH ×4 (00:31→22:36)
[2020-08-03 03:00] VITALS: BP 124/55
[2020-08-03 07:25] VITALS: BP 125/67
--- NOTE | 2020-08-03 07:47 | PDOC ---
Infectious Disease Note Vital Sign Vital Signs Vital Signs Date Time Temp Pulse Resp B/P (MAP) Pulse Ox O2 Delivery O2 Flow Rate FiO2 08/03/20 07:25 97.4 79 18 125/67 (86) 97 Room Air 97.4 Labs Lab Laboratory Tests Test 08/02/20 21:00 White Blood Count 6.9 x10^3/uL (4.0-11.0) Red Blood Count 4.73 x10^6/uL (3.50-5.40) Hemoglobin 9.2 g/dL (12.0-15.5) Hematocrit 29.5 % (36.0-47.0) Mean Corpuscular Volume 62 fL (79-100) Mean Corpuscular Hemoglobin 19 pg (25-35) Mean Corpuscular Hemoglobin Concent 31 g/dL (31-37) Red Cell Distribution Width 18.7 % (11.5-14.5) Platelet Count 295 x10^3/uL (140-400) Neutrophils (%) (Auto) 77 % (31-73) Lymphocytes (%) (Auto) 12 % (24-48) Monocytes (%) (Auto) 9 % (0-9) Eosinophils (%) (Auto) 1 % (0-3) Basophils (%) (Auto) 1 % (0-3) Neutrophils # (Auto) 5.3 x10^3/uL (1.8-7.7) Lymphocytes # (Auto) 0.8 x10^3/uL (1.0-4.8) Monocytes # (Auto) 0.6 x10^3/uL (0.0-1.1) Eosinophils # (Auto) 0.1 x10^3/uL (0.0-0.7) Basophils # (Auto) 0.1 x10^3/uL (0.0-0.2) Sodium Level 139 mmol/L (136-145) Potassium Level 4.4 mmol/L (3.5-5.1) Chloride Level 104 mmol/L (98-107) Carbon Dioxide Level 29 mmol/L (21-32) Anion Gap 6 (6-14) Blood Urea Nitrogen 23 mg/dL (7-20) Creatinine 1.6 mg/dL (0.6-1.0) Estimated GFR (Cockcroft-Gault) 37.1 BUN/Creatinine Ratio 14 (6-20) Glucose Level 92 mg/dL (70-99) Calcium Level 8.8 mg/dL (8.5-10.1) Magnesium Level 2.1 mg/dL (1.8-2.4) Total Bilirubin 0.4 mg/dL (0.2-1.0) Aspartate Amino Transf (AST/SGOT) 11 U/L (15-37) Alanine Aminotransferase (ALT/SGPT) 8 U/L (14-59) Alkaline Phosphatase 68 U/L (46-116) Total Protein 6.9 g/dL (6.4-8.2) Albumin 2.5 g/dL (3.4-5.0) Albumin/Globulin Ratio 0.6 (1.0-1.7) Objective Assessment LLE cellultisis LLE lymphedema Yeast CKD PAD Plan Plan of Care Cont Zosyn Zyvox to po Fluconazole Elevation ? Vascular eval F/u labs and cults Thank you # [id number] NEIL CURTIS MD Aug 03, 2020 07:47
[2020-08-03] MEDS: FLUCONAZOLE 100 MG TABLET. PO SCH (07:54)
[2020-08-03] MEDS: LINEZOLID 600 MG TABLET PO SCH ×2 (07:54→21:24)
[2020-08-03] MEDS: APIXABAN 5 MG TABLET. PO SCH ×2 (07:54→21:24)
[2020-08-03] MEDS: CHOLECALCIFEROL (VITAMIN D3) 1,000 UNIT TABLET PO SCH (07:54)
[2020-08-03] MEDS: PRAMIPEXOLE 0.25 MG TABLET. PO SCH ×3 (07:54→21:24)
[2020-08-03] MEDS: CARBIDOPA/LEVODOPA CR 25/100MG TABLET.SA. PO SCH ×3 (07:55→21:24)
[2020-08-03] MEDS: FUROSEMIDE 40 MG/4 ML VIAL. IVP SCH (07:55)
--- NOTE | 2020-08-03 09:33 | CONS ---
DATE OF CONSULTATION: 08/03/2020 LOCATION: The patient's room is 404. REQUESTING PHYSICIAN: Dr. Miles. REASON FOR CONSULTATION: Cellulitis. HISTORY OF PRESENT ILLNESS: The patient is a pleasant 85-year-old female with a history of a previous lower extremity cellulitis, history of thalassemia, chronic venous insufficiency and chronic kidney disease. Recently, she has been under care of Dr. Miles for left lower extremity cellulitis, had been receiving cephalexin and doxycycline. She was seen in the Emergency Room on 07/28/2020 and was given some pain medications as it appeared that the leg was improving at that time aside from discomfort. She then states she had a sudden increase in pain and swelling. Denies any fevers or chills or sweats, but she presented to Dr. Miles's outpatient office and was directly admitted to the hospital and placed on Zosyn and IV Zyvox. Currently, she is lying in bed. She is fairly comfortable, states she is feeling a little bit better. She denies any rashes. No dysuria. No constipation or diarrhea. PAST MEDICAL HISTORY: Positive for chronic kidney disease, Parkinson's, gout, chronic venous insufficiency of both lower extremities, thalassemia, history of DVT. PAST SURGICAL HISTORY: Positive for cholecystectomy. REVIEW OF SYSTEMS: Otherwise negative except for mentioned above. ALLERGIES: No known drug allergies. SOCIAL HISTORY: No tobacco, no alcohol. Lives with her daughter. She has no pets at home. Uses a cane. FAMILY HISTORY: Noncontributory. CURRENT MEDICATIONS: Include Zyvox, IV Zosyn, Tylenol, Eliquis, carbidopa/levodopa, Lasix, Mirapex. PHYSICAL EXAMINATION: VITAL SIGNS: She is afebrile, temperature 97.4, pulse 79, respirations 18, blood pressure 125/67, satting 97% on room air. CONSTITUTIONAL: She is lying in bed. She is cooperative. She is in no acute distress. HEENT: Pupils equal and reactive. She has normal conjunctivae. Oral cavity, pharynx is clear. NECK: Supple. No fullness. LUNGS: Clear to auscultation. HEART: S1, S2. ABDOMEN: Mildly obese, soft, nontender, no guarding, no rebound. EXTREMITIES: Without clubbing, no cyanosis. She has bilateral lower extremity edema with a trace to 1+ on the right. Her left side is 1-2+. Her left leg is warm. She has some scaling. She has some yeast. She has some scabbing and there is mild erythema that is tracking up the mid of her knee. SKIN: Otherwise, warm without rash. NEUROLOGIC: She is nonfocal, answers questions appropriately. PSYCHIATRIC: Affect is pleasant. LABORATORY VALUES: White count 6.9, hemoglobin 9.2, platelets 295, neutrophils 77, creatinine of 106, AST 11, ALT 8. Glucose was 92. Lower extremity arterial Dopplers performed, showed regions of elevated velocities in bilateral lower extremities greatest to left, monophasic waveforms distally within the left lower extremity consistent with proximal stenosis. IMPRESSION: 1. Left lower extremity cellulitis. 2. Left lower extremity lymphedema. 3. Yeast. 4. Chronic kidney disease. 5. Peripheral arterial disease. RECOMMENDATIONS: We will continue the Zosyn and Zyvox. We will change Zyvox to p.o. We will also add fluconazole and she needs elevation or questionable needs for vascular evaluation. Follow up labs and cultures. Thank you for the patient's care. If you have any questions, please do not hesitate to contact me. NEIL CURTIS MD DR: JANINA/eri JOB#: [id number] / [id number] LUIS ENRIQUE
[2020-08-03 10:30] VITALS: BP 108/61
--- NOTE | 2020-08-03 11:02 | PDOC ---
Provider Note Date of Service: DATE: 08/03/20 TIME: 11:02 Provider Note history and physical dictated # [id number] Justifications for Admission Other Justification ELI ROSALES MD Aug 03, 2020 11:02
--- NOTE | 2020-08-03 12:45 | HP ---
ADMIT DATE: 08/02/2020 She is in room 404. HISTORY OF PRESENT ILLNESS: The patient is an 85-year-old -[place] female who has chronic venous insufficiency of the legs and has bilateral femoral vein thrombosis, treated with Eliquis; chronic kidney disease stage 3; thalassemia trait with anemia and Parkinson's disease, had a chronic left lateral calf venous stasis wound. She had some drainage coming out of it and was treated as an outpatient with oral antibiotics. She received Keflex and doxycycline. She took it for about 8 or 9 days. She went to the Emergency Room within the last week and the ER doctor felt the left calf wound was not infected and she was sent home. The patient was seen in the office on 08/02/2020 and she had some redness and swelling of the left calf consistent with cellulitis and also had an wound in the left lateral calf with some drainage. She was subsequently admitted to the hospital and started on IV antibiotics including Zyvox and Zosyn. She denied any fever. She also has Parkinson's disease and the daughter notes that she has had significant mobility deficits and has difficulty walking at home. She is even considering putting her in the shelter. In any case, the patient was admitted to the hospital with cellulitis of the left leg and a nonhealing left calf wound and increasing edema to lower extremities. ALLERGIES AND INTOLERANCES: None. MEDICATIONS: Prior to admission include Keflex 500 mg 1 t.i.d., doxycycline 100 mg b.i.d., Eliquis 5 mg b.i.d., furosemide 40 mg p.o. every other day. She is on Mirapex 0.5 mg t.i.d., Sinemet CR 50/200 mg 1 tablet t.i.d., vitamin D at 1000 units every day. PAST MEDICAL HISTORY: Significant for recent bilateral femoral vein thrombosis, treated with Eliquis. She also had a deep vein thrombosis in the left lower extremity in 2012 and also had inferior vena cava filter placed in 2012 for deep vein thrombosis. She also had a laparoscopic cholecystectomy in 2015. She has thalassemia minor, history of gout, chronic. She also has Parkinson's disease, chronic venous insufficiency of the legs. She has anemia of chronic disease. She has a history of cholecystectomy in the past. SOCIAL HISTORY: She does not drink alcohol nor she smokes cigarettes, ambulates with a walker. FAMILY HISTORY: Noncontributory. REVIEW OF SYSTEMS: GENERAL: She denies any fever, chills or sweats in the last 3 days. CARDIOVASCULAR: No chest pain. PULMONARY: No cough or shortness of breath. GASTROINTESTINAL: No constipation. ENDOCRINE: No diabetes mellitus. SKIN: She has got the cellulitis in the left calf and a nonhealing left calf wound and the rest of the systems reviewed are negative except as stated in history of present illness. PHYSICAL EXAMINATION: VITAL SIGNS: Temperature is 98.4 degrees, heart rate 81, respiratory rate 18, blood pressure 108/61, oxygen saturation 96% on room air. HEENT: Eyes: Gaze is conjugate. She does have a masked facies. Tongue is midline without yeast. NECK: No cervical lymphadenopathy or thyroid enlargement. HEART: Reveals an S1, S2. There is no S3 or murmur. LUNGS: Clear anteriorly. ABDOMEN: Soft with no hepatosplenomegaly, masses or tenderness. EXTREMITIES: Lower extremities got 1+ edema in the right leg and 2+ edema in the left leg. She had a dry dressing over her left calf and left lower leg. She has got less redness involving the left pretibial area. She has got some scaly area in her left foot. NEUROLOGIC: She follows all commands. She has a masked facies. No facial weakness. She has got 5/5 bilateral hand vocational director, able to dorsi and plantarflex the feet. SKIN: You have to look at the pictures on the chart. She has got a left lateral calf wound. LABORATORY DATA: Review of her test results, her white count was 6.9, hemoglobin 9.2, MCV of 62, but her RBC was normal and it was 4.73; MCH of 19; MCHC of 31, this more consistent with thalassemia trait. Platelet counts are 295,000. She had 77 polys and 12 lymphocytes. Sodium 139, potassium 4.4, chloride 104, total CO2 of 29, BUN 23, creatinine 1.6. Albumin was 2.5. She had a chest x-ray done, which showed no lung infiltrate or pleural effusion. She had bilateral lower extremity venous Doppler done, which showed a partial thrombus in the right femoral vein and also in the left common femoral vein. She had an arterial Doppler study done of the lower extremities, which showed monophasic waveforms from the distal superficial femoral artery in the left side to the dorsalis pedis artery in the foot. On the right side, she had biphasic waveforms throughout the right lower extremity. She had an electrocardiogram done. ASSESSMENT: 1. Cellulitis of the left lower extremity. 2. Venous stasis wound, left leg. 3. Peripheral arterial disease. 4. Chronic venous insufficiency of the legs. 5. Bilateral femoral vein thrombosis, treated with Eliquis and she has an inferior vena cava filter placed in 2012. 6. Chronic kidney disease stage 3. 7. Severe protein-calorie malnutrition. 8. Thalassemia trait. 9. Anemia of chronic disease. 10. Parkinson's disease. 11. Debility. PLAN: Plan at this time is to continue with IV Zosyn and also with oral Zyvox. She was started on fluconazole by the Infectious Disease doctor. We will consult the Infectious Disease doctor and neurologist for the Parkinson's disease and will also consult Dr. Welch for Vascular Surgery and the wound care physician and also the wound care nurse. We will also treat with IV Lasix 40 mg IV daily for leg swelling. Jimenez catheter has been placed. We will continue Eliquis for bilateral lower extremity femoral vein deep vein thrombosis. We will check her CBC and BMP tomorrow. Check some iron studies. Continue the medications for Parkinson's disease. We will also order physical and occupational therapy. We will order some heel protectors also. ELI ROSALES MD DR: CHEKO/eri JOB#: [id number] / [id number]
[2020-08-03] MEDS: ACETAMINOPHEN 500 MG TABLET PO PRN (12:49)
--- NOTE | 2020-08-03 14:14 | PDOC2 ---
NEUROLOGY CONSULT Date of Service DOS: DATE: 08/03/20 TIME: 14:07 History of Present Illness History of Present Illness The patient is an 85-year-old right-handed female whom I follow in the office for Parkinson's. She was last in on 07/16. We had tried to increase her nighttime pramipexole and carbidopa/levodopa doses, but she developed hallucinations. When I saw her last, then, we decided to continue her current doses as she was actually quite satisfied with her Parkinson's control. Dr. Miles saw her in the office yesterday because of redness and swelling of the calf consistent with cellulitis with a wound in the left lateral calf and some drainage, and admitted her to the hospital for intravenous antibiotics. The patient has been following in the wound clinic and also was in the emergency department a week ago. Patient denies any new neurological issues. In particular she denies any cognitive problems or dysphagia. Past Medical History Cardiovascular: HTN, Other (deep venous thrombosis) CENTRAL NERVOUS SYSTEM: Other (Parkinson's) GI: GI bleed Heme/Onc: Anemia NOS (of chronic disease, B thalassemia) Musculoskeletal: Osteoarthritis Rheumatologic: Gout Renal/: Chronic renal insuff, UTI Endocrine: Other (vitamin D deficiency) Past Surgical History Past Surgical History: Cholecystectomy (Laparoscopic), Cataract Removal, Other ( IVC filter) Family History Family History: CVA Social History Social History Retired, no alcohol or tobacco Current Medications Current Medications Current Medications Piperacillin Sod/ Tazobactam Sod 3.375 gm/Sodium Chloride 50 ml @ 100 mls/hr Q8HRS IV Last administered on 08/03/20at 12:50; Start 08/02/20 at 18:00 Linezolid/Dextrose 300 ml @ 300 mls/hr Q12HR IV Last administered on 08/02/20at 21:50; Start 08/02/20 at 21:00; Stop 08/03/20 at 07:38; Status DC Acetaminophen (Tylenol) 500 mg PRN Q4HRS PRN PO MILD PAIN / TEMP > 100.3'F Last administered on 08/03/20at 12:49; Start 08/02/20 at 18:15 Vitamin D (Vitamin D3) 1,000 unit DAILY PO Last administered on 08/03/20at 07:54; Start 08/03/20 at 09:00 Pramipexole Dihydrochloride (miraPEX) 0.5 mg TID PO Last administered on 08/03/20at 12:49; Start 08/02/20 at 21:00 Carbidopa/Levodopa (Sinemet Cr) 2 tab.sa TID PO Last administered on 08/03/20at 12:49; Start 08/02/20 at 21:00 Apixaban (Eliquis) 5 mg BID PO Last administered on 08/03/20at 07:54; Start 08/02/20 at 21:00 Furosemide (Lasix) 40 mg DAILY IVP Last administered on 08/03/20at 07:55; Start 08/03/20 at 09:00 Info (Anti-Coagulation Monitoring By Pharmacy) 1 each PRN DAILY PRN MC SEE COMMENTS; Start 08/02/20 at 18:30 Linezolid (Zyvox) 600 mg BID PO Last administered on 08/03/20at 07:54; Start 08/03/20 at 09:00 Fluconazole (Diflucan) 100 mg DAILY PO Last administered on 08/03/20at 07:54; Start 08/03/20 at 09:00 Active Scripts Active Hydrocodone-Acetamin 5-325 mg (Hydrocodone/Acetaminophen) 1 Each Tablet 1 Each PO Q6HRS PRN Culturelle (Lactobacillus Rhamnosus Gg) 1 Each Cap.sprink 1 Cap PO BID 10 Days Furosemide 40 Mg Tablet 40 Mg PO DAILY Acetaminophen 500 Mg Tablet 500 Mg PO PRN Q4HRS PRN Eliquis (Apixaban) 5 Mg Tablet 10 Mg PO BID eliquis 10 mg bid thru 01/07. start eliquis 5 mg bid starting 01/08 [Cefazolin Sodium] 1 GM Vial 1 Gm IVP Q8HRS 5 Days Reported Doxycycline Hyclate 100 Mg Capsule 1 Cap PO BID Mirapex (Pramipexole Di-Hcl) 0.25 Mg Tablet 0.5 Mg PO TID Ferrous Sulfate 325 Mg Tablet 325 Mg PO DAILY Vitamin D3 (Cholecalciferol (Vitamin D3)) 1,000 Unit Tablet 1,000 Unit PO DAILY Sinemet Cr 50-200 Tablet (Carbidopa/Levodopa) 1 Each Tablet.er 1 Tab PO TID Allergies Allergies: Coded Allergies: No Known Drug Allergies (Unverified , 07/26/20) ROS Review of System Negative for fever, chills, weight loss, shortness of breath, chest pain, indigestion, hematochezia, melena, and dysuria. Full 14-point review of systems is negative. Physical Exam Physical Examination General: Well-developed, well-nourished black female in no acute distress HEENT: Normocephalic andatraumatic. Tympanic membranes clear.Temporal arteriespulsatile and nontender.Fundoscopic exam unremarkable Neck: Supple without bruit, no meningismus Musculoskeletal: Stability:see neurologic. Gait exam:see neurologic. Tone:see neurologic.Strength:see neurologic. Neurological: Mental Status:intact, orientation, memory, attention span/concentration, language, fund of knowledge normal. Cranial Nerves:Pupils equal and reactive to light, extraocular movements areintact, visual cheung are full to confrontation. Facial sensation is normal. There is no facial asymmetry. Vestibulo-ocular reflex is intact. Palate elevates and tongue protrudes in midline. All other cranial related problems are negative except as mentioned before.Reflexes:2+ and symmetric with flexor plantar responses. Motor:5/5 st rength with normal tone and bulk. Coordination:Finger-nose finger and [id number] testing are normal. She has masked facies, minimal cogwheel rigidity, bradykinesia, no tremor. Gait: not tested. Sensory:Normal pinprick, vibration, light touch, proprioception. Vitals VITALS Vital Signs Date Time Temp Pulse Resp B/P (MAP) Pulse Ox O2 Delivery O2 Flow Rate FiO2 08/03/20 10:30 98.4 81 18 108/61 (77) 96 Room Air 98.4 Labs Labs Laboratory Tests Test 08/02/20 21:00 White Blood Count 6.9 x10^3/uL (4.0-11.0) Red Blood Count 4.73 x10^6/uL (3.50-5.40) Hemoglobin 9.2 g/dL (12.0-15.5) Hematocrit 29.5 % (36.0-47.0) Mean Corpuscular Volume 62 fL (79-100) Mean Corpuscular Hemoglobin 19 pg (25-35) Mean Corpuscular Hemoglobin Concent 31 g/dL (31-37) Red Cell Distribution Width 18.7 % (11.5-14.5) Platelet Count 295 x10^3/uL (140-400) Neutrophils (%) (Auto) 77 % (31-73) Lymphocytes (%) (Auto) 12 % (24-48) Monocytes (%) (Auto) 9 % (0-9) Eosinophils (%) (Auto) 1 % (0-3) Basophils (%) (Auto) 1 % (0-3) Neutrophils # (Auto) 5.3 x10^3/uL (1.8-7.7) Lymphocytes # (Auto) 0.8 x10^3/uL (1.0-4.8) Monocytes # (Auto) 0.6 x10^3/uL (0.0-1.1) Eosinophils # (Auto) 0.1 x10^3/uL (0.0-0.7) Basophils # (Auto) 0.1 x10^3/uL (0.0-0.2) Sodium Level 139 mmol/L (136-145) Potassium Level 4.4 mmol/L (3.5-5.1) Chloride Level 104 mmol/L (98-107) Carbon Dioxide Level 29 mmol/L (21-32) Anion Gap 6 (6-14) Blood Urea Nitrogen 23 mg/dL (7-20) Creatinine 1.6 mg/dL (0.6-1.0) Estimated GFR (Cockcroft-Gault) 37.1 BUN/Creatinine Ratio 14 (6-20) Glucose Level 92 mg/dL (70-99) Calcium Level 8.8 mg/dL (8.5-10.1) Magnesium Level 2.1 mg/dL (1.8-2.4) Total Bilirubin 0.4 mg/dL (0.2-1.0) Aspartate Amino Transf (AST/SGOT) 11 U/L (15-37) Alanine Aminotransferase (ALT/SGPT) 8 U/L (14-59) Alkaline Phosphatase 68 U/L (46-116) Total Protein 6.9 g/dL (6.4-8.2) Albumin 2.5 g/dL (3.4-5.0) Albumin/Globulin Ratio 0.6 (1.0-1.7) Laboratory Tests Test 08/02/20 21:00 White Blood Count 6.9 x10^3/uL (4.0-11.0) Red Blood Count 4.73 x10^6/uL (3.50-5.40) Hemoglobin 9.2 g/dL (12.0-15.5) Hematocrit 29.5 % (36.0-47.0) Mean Corpuscular Volume 62 fL (79-100) Mean Corpuscular Hemoglobin 19 pg (25-35) Mean Corpuscular Hemoglobin Concent 31 g/dL (31-37) Red Cell Distribution Width 18.7 % (11.5-14.5) Platelet Count 295 x10^3/uL (140-400) Neutrophils (%) (Auto) 77 % (31-73) Lymphocytes (%) (Auto) 12 % (24-48) Monocytes (%) (Auto) 9 % (0-9) Eosinophils (%) (Auto) 1 % (0-3) Basophils (%) (Auto) 1 % (0-3) Neutrophils # (Auto) 5.3 x10^3/uL (1.8-7.7) Lymphocytes # (Auto) 0.8 x10^3/uL (1.0-4.8) Monocytes # (Auto) 0.6 x10^3/uL (0.0-1.1) Eosinophils # (Auto) 0.1 x10^3/uL (0.0-0.7) Basophils # (Auto) 0.1 x10^3/uL (0.0-0.2) Sodium Level 139 mmol/L (136-145) Potassium Level 4.4 mmol/L (3.5-5.1) Chloride Level 104 mmol/L (98-107) Carbon Dioxide Level 29 mmol/L (21-32) Anion Gap 6 (6-14) Blood Urea Nitrogen 23 mg/dL (7-20) Creatinine 1.6 mg/dL (0.6-1.0) Estimated GFR (Cockcroft-Gault) 37.1 BUN/Creatinine Ratio 14 (6-20) Glucose Level 92 mg/dL (70-99) Calcium Level 8.8 mg/dL (8.5-10.1) Magnesium Level 2.1 mg/dL (1.8-2.4) Total Bilirubin 0.4 mg/dL (0.2-1.0) Aspartate Amino Transf (AST/SGOT) 11 U/L (15-37) Alanine Aminotransferase (ALT/SGPT) 8 U/L (14-59) Alkaline Phosphatase 68 U/L (46-116) Total Protein 6.9 g/dL (6.4-8.2) Albumin 2.5 g/dL (3.4-5.0) Albumin/Globulin Ratio 0.6 (1.0-1.7) Assessment/Plan Assessment/Plan Impression: Parkinsons, stable on carbidopa/levodopa and pramipexole Leg wounds, cellulitis, arterial insufficiency Recommendations: Continue current Parkinson's regimen Treatment of wound issues, as you are doing of course. Rehabilitation modalities Thank you for letting me help with the patient's care. CRYSTAL CORDON MD Aug 03, 2020 14:14
[2020-08-03] MEDS: ANTI-COAG MONITOR BY PHARMACY. MC PRN (14:20)
[2020-08-03 14:44] VITALS: BP 107/57
--- NOTE | 2020-08-03 16:02 | NUR ---
Patient is refusing IV. Patient stated to daughter at bedside, " I dont want anything that hurts me. I just want it to stop." Daughter asked mom " Well you are going to if you dont let them start another IV on you. Is that what you want?" Patient responded, " Yes, I dont want to be in pain anymore. " will be paged about patient refusing IV, unable to give IV antibiotics.
[2020-08-03 19:20] VITALS: BP 145/67
[2020-08-03] MEDS: LACTOBACILLUS RHAMNOSUS GG 1 CAPSULE. PO SCH (21:24)
[2020-08-03 23:34] VITALS: BP 126/63
[2020-08-04 03:00] VITALS: BP 140/72
[2020-08-04] MEDS: PIPERACILLIN/TAZOBACTAM 3.375 GM in IV NORMAL SALINE 50ML 50 ML IV SCH (05:49)
[2020-08-04 07:27] VITALS: BP 128/73
--- NOTE | 2020-08-04 07:38 | PDOC ---
Infectious Disease Note Subjective Subjective Doing ok. Leg still with some pain Wants to get up. No F/C/S/N/V/D/SOA/rash ROS ROS o/w neg Vital Sign Vital Signs Vital Signs Date Time Temp Pulse Resp B/P (MAP) Pulse Ox O2 Delivery O2 Flow Rate FiO2 08/04/20 07:27 98.7 80 18 128/73 (91) 96 Room Air 98.7 Physical Exam PHYSICAL EXAM CONSTITUTIONAL: She is sitting up on side of bed. She is cooperative. She is in no acute distress. HEENT: Pupils equal and reactive. She has normal conjunctivae. Oral cavity, pharynx is clear. NECK: Supple. No fullness. LUNGS: Clear to auscultation. HEART: S1, S2. ABDOMEN: Mildly obese, soft, nontender, no guarding, no rebound. EXTREMITIES: Without clubbing, no cyanosis. She has bilateral lower extremity edema with a trace to 1+ on the right. Her left side is 1-2+. Her left leg is warm and dressed. No tracking SKIN: Otherwise, warm without rash. NEUROLOGIC: She is nonfocal, answers questions appropriately. PSYCHIATRIC: Affect is pleasant. RUE mid line clean Objective Assessment LLE cellultisis LLE lymphedema Yeast CKD PAD Plan Plan of Care Cont Zosyn Zyvox to po Fluconazole Elevation ? Vascular eval F/u labs and cults D/w nursing NEIL CURTIS MD Aug 04, 2020 07:38
[2020-08-04 08:13] LABS: BASO # 0.1 x10^3/uL (0.0-0.2); BASO % 1 % (0-3); EOS # 0.3 x10^3/uL (0.0-0.7); EOS % 4 % (0-3); HEMOGLOBIN 9.3 g/dL (12.0-15.5); LYMPH # 1.4 x10^3/uL (1.0-4.8); LYMPH % 18 % (24-48); MEAN CORPUSCULAR HEMOGLOBIN 19 pg (25-35); MEAN CORPUSCULAR HGB CONC 31 g/dL (31-37); MEAN CORPUSCULAR VOLUME 62 fL (79-100); MONO # 0.7 x10^3/uL (0.0-1.1); MONO % 9 % (0-9); NEUT # 5.6 x10^3/uL (1.8-7.7); NEUT % 69 % (31-73); PLATELET COUNT 303 x10^3/uL (140-400); RED BLOOD COUNT 4.82 x10^6/uL (3.50-5.40); RED CELL DISTRIBUTION WIDTH 18.2 % (11.5-14.5)
[2020-08-04 08:35] LABS: CALCIUM 9.1 mg/dL (8.5-10.1); CREATININE 1.5 mg/dL (0.6-1.0); GFR 39.9; POTASSIUM 4.3 mmol/L (3.5-5.1)
[2020-08-04] MEDS: FUROSEMIDE 40 MG/4 ML VIAL. IVP SCH (08:46)
[2020-08-04] MEDS: LACTOBACILLUS RHAMNOSUS GG 1 CAPSULE. PO SCH ×2 (08:46→20:38)
[2020-08-04] MEDS: CARBIDOPA/LEVODOPA CR 25/100MG TABLET.SA. PO SCH ×3 (08:46→20:38)
[2020-08-04] MEDS: CHOLECALCIFEROL (VITAMIN D3) 1,000 UNIT TABLET PO SCH (08:46)
[2020-08-04] MEDS: APIXABAN 5 MG TABLET. PO SCH ×2 (08:46→20:38)
[2020-08-04] MEDS: FLUCONAZOLE 100 MG TABLET. PO SCH (08:47)
[2020-08-04] MEDS: LINEZOLID 600 MG TABLET PO SCH ×2 (08:47→20:41)
[2020-08-04] MEDS: PRAMIPEXOLE 0.25 MG TABLET. PO SCH ×3 (09:40→20:38)
[2020-08-04 10:25] LABS: HYPOCHROMIA PRESENT; PLT ESTIMATE ADEQUATE (ADEQUATE)
[2020-08-04 10:26] LABS: ANISOCYTOSIS PRESENT; OVALOCYTES PRESENT; TARGET CELLS PRESENT; TEAR DROP CELLS PRESENT
[2020-08-04 10:40] VITALS: BP 123/70
--- NOTE | 2020-08-04 10:57 | PDOC ---
PROGRESS NOTES Date of Service DATE: 08/04/20 TIME: 10:53 Subjective Subjective feels okay. alert up in chair receiving OT. she had an excellent diuresis of over 4 liters. lab reviewed. Objective Objective Vital Signs Date Time Temp Pulse Resp B/P (MAP) Pulse Ox O2 Delivery O2 Flow Rate FiO2 08/04/20 10:40 97.6 75 18 123/70 (87) 98 Room Air 97.6 Intake and Output 08/04/20 07:00 Intake Total 360 ml Output Total 3950 ml Balance -3590 ml Intake Oral 360 ml Output Urine Total 3950 ml Physical Exam Abdomen: Soft Heart: Regular rate, Normal S1, Normal S2 Extremities: Other (left foot edema 1 to 2 plus. left leg wrapped. no edema right leg) General: Alert HEENT: Atraumatic Lungs: Clear to auscultation Neuro: Normal speech Psych/Mental Status: Mood NL Skin: No rashes Assessment Assessment 1. Cellulitis of the left lower extremity. 2. Venous stasis wound, left leg. 3. Peripheral arterial disease. 4. Chronic venous insufficiency of the legs. 5. Bilateral femoral vein thrombosis, treated with Eliquis and she has an inferior vena cava filter placed in 2012. 6. Chronic kidney disease stage 3. 7. Severe protein-calorie malnutrition. 8. Thalassemia trait. 9. Anemia of chronic disease. 10. Parkinson's disease. 11. Debility. Plan Plan of Care decrease iv lasix continue eliquis continue prince catheter to monitor urine output lab tomorrow PT and OT continue zyvox and zosyn wound care await vascular surgery consult Comment Review of Relevant I have reviewed the following items cathleen (where applicable) has been applied. Labs Laboratory Tests Test 08/02/20 21:00 08/04/20 05:55 White Blood Count 6.9 x10^3/uL (4.0-11.0) 8.0 x10^3/uL (4.0-11.0) Red Blood Count 4.73 x10^6/uL (3.50-5.40) 4.82 x10^6/uL (3.50-5.40) Hemoglobin 9.2 g/dL (12.0-15.5) 9.3 g/dL (12.0-15.5) Hematocrit 29.5 % (36.0-47.0) 30.0 % (36.0-47.0) Mean Corpuscular Volume 62 fL (79-100) 62 fL (79-100) Mean Corpuscular Hemoglobin 19 pg (25-35) 19 pg (25-35) Mean Corpuscular Hemoglobin Concent 31 g/dL (31-37) 31 g/dL (31-37) Red Cell Distribution Width 18.7 % (11.5-14.5) 18.2 % (11.5-14.5) Platelet Count 295 x10^3/uL (140-400) 303 x10^3/uL (140-400) Neutrophils (%) (Auto) 77 % (31-73) 69 % (31-73) Lymphocytes (%) (Auto) 12 % (24-48) 18 % (24-48) Monocytes (%) (Auto) 9 % (0-9) 9 % (0-9) Eosinophils (%) (Auto) 1 % (0-3) 4 % (0-3) Basophils (%) (Auto) 1 % (0-3) 1 % (0-3) Neutrophils # (Auto) 5.3 x10^3/uL (1.8-7.7) 5.6 x10^3/uL (1.8-7.7) Lymphocytes # (Auto) 0.8 x10^3/uL (1.0-4.8) 1.4 x10^3/uL (1.0-4.8) Monocytes # (Auto) 0.6 x10^3/uL (0.0-1.1) 0.7 x10^3/uL (0.0-1.1) Eosinophils # (Auto) 0.1 x10^3/uL (0.0-0.7) 0.3 x10^3/uL (0.0-0.7) Basophils # (Auto) 0.1 x10^3/uL (0.0-0.2) 0.1 x10^3/uL (0.0-0.2) Sodium Level 139 mmol/L (136-145) 137 mmol/L (136-145) Potassium Level 4.4 mmol/L (3.5-5.1) 4.3 mmol/L (3.5-5.1) Chloride Level 104 mmol/L (98-107) 101 mmol/L (98-107) Carbon Dioxide Level 29 mmol/L (21-32) 29 mmol/L (21-32) Anion Gap 6 (6-14) 7 (6-14) Blood Urea Nitrogen 23 mg/dL (7-20) 16 mg/dL (7-20) Creatinine 1.6 mg/dL (0.6-1.0) 1.5 mg/dL (0.6-1.0) Estimated GFR (Cockcroft-Gault) 37.1 39.9 BUN/Creatinine Ratio 14 (6-20) Glucose Level 92 mg/dL (70-99) 71 mg/dL (70-99) Calcium Level 8.8 mg/dL (8.5-10.1) 9.1 mg/dL (8.5-10.1) Magnesium Level 2.1 mg/dL (1.8-2.4) Total Bilirubin 0.4 mg/dL (0.2-1.0) Aspartate Amino Transf (AST/SGOT) 11 U/L (15-37) Alanine Aminotransferase (ALT/SGPT) 8 U/L (14-59) Alkaline Phosphatase 68 U/L (46-116) Total Protein 6.9 g/dL (6.4-8.2) Albumin 2.5 g/dL (3.4-5.0) Albumin/Globulin Ratio 0.6 (1.0-1.7) Platelet Estimate Adequate (ADEQUATE) Hypochromasia Present Anisocytosis Present Target Cells Present Tear Drop Cells Present Ovalocytes Present Iron Level 15 ug/dL (50-170) Total Iron Binding Capacity 127 ug/dL (250-450) Iron Saturation 12 % (15-34) Ferritin 727 ng/mL (8-252) Laboratory Tests Test 08/04/20 05:55 White Blood Count 8.0 x10^3/uL (4.0-11.0) Red Blood Count 4.82 x10^6/uL (3.50-5.40) Hemoglobin 9.3 g/dL (12.0-15.5) Hematocrit 30.0 % (36.0-47.0) Mean Corpuscular Volume 62 fL (79-100) Mean Corpuscular Hemoglobin 19 pg (25-35) Mean Corpuscular Hemoglobin Concent 31 g/dL (31-37) Red Cell Distribution Width 18.2 % (11.5-14.5) Platelet Count 303 x10^3/uL (140-400) Neutrophils (%) (Auto) 69 % (31-73) Lymphocytes (%) (Auto) 18 % (24-48) Monocytes (%) (Auto) 9 % (0-9) Eosinophils (%) (Auto) 4 % (0-3) Basophils (%) (Auto) 1 % (0-3) Neutrophils # (Auto) 5.6 x10^3/uL (1.8-7.7) Lymphocytes # (Auto) 1.4 x10^3/uL (1.0-4.8) Monocytes # (Auto) 0.7 x10^3/uL (0.0-1.1) Eosinophils # (Auto) 0.3 x10^3/uL (0.0-0.7) Basophils # (Auto) 0.1 x10^3/uL (0.0-0.2) Platelet Estimate Adequate (ADEQUATE) Hypochromasia Present Anisocytosis Present Target Cells Present Tear Drop Cells Present Ovalocytes Present Sodium Level 137 mmol/L (136-145) Potassium Level 4.3 mmol/L (3.5-5.1) Chloride Level 101 mmol/L (98-107) Carbon Dioxide Level 29 mmol/L (21-32) Anion Gap 7 (6-14) Blood Urea Nitrogen 16 mg/dL (7-20) Creatinine 1.5 mg/dL (0.6-1.0) Estimated GFR (Cockcroft-Gault) 39.9 Glucose Level 71 mg/dL (70-99) Calcium Level 9.1 mg/dL (8.5-10.1) Iron Level 15 ug/dL (50-170) Total Iron Binding Capacity 127 ug/dL (250-450) Iron Saturation 12 % (15-34) Ferritin 727 ng/mL (8-252) Medications Current Medications Piperacillin Sod/ Tazobactam Sod 3.375 gm/Sodium Chloride 50 ml @ 100 mls/hr Q8HRS IV Last administered on 08/04/20at 05:49; Start 08/02/20 at 18:00; Stop 08/04/20 at 06:30; Status DC Linezolid/Dextrose 300 ml @ 300 mls/hr Q12HR IV Last administered on 08/02/20at 21:50; Start 08/02/20 at 21:00; Stop 08/03/20 at 07:38; Status DC Acetaminophen (Tylenol) 500 mg PRN Q4HRS PRN PO MILD PAIN / TEMP > 100.3'F Last administered on 08/03/20 12:49; Start 08/02/20 at 18:15 Vitamin D (Vitamin D3) 1,000 unit DAILY PO Last administered on 08/04/20 08:4 6; Start 08/03/20 at 09:00 Pramipexole Dihydrochloride (miraPEX) 0.5 mg TID PO Last administered on 08/04/20 09:40; Start 08/02/20 at 21:00 Carbidopa/Levodopa (Sinemet Cr) 2 tab.sa TID PO Last administered on 08/04/20 08:46; Start 08/02/20 at 21:00 Apixaban (Eliquis) 5 mg BID PO Last administered on 08/04/20 08:46; Start 08/02/20 at 21:00 Furosemide (Lasix) 40 mg DAILY IVP Last administered on 08/04/20 08:46; Start 08/03/20 at 09:00 Info (Anti-Coagulation Monitoring By Pharmacy) 1 each PRN DAILY PRN MC SEE COMMENTS Last administered on 08/03/20at 14:20; Start 08/02/20 at 18:30 Linezolid (Zyvox) 600 mg BID PO Last administered on 08/04/20 08:47; Start 08/03/20 at 09:00 Fluconazole (Diflucan) 100 mg DAILY PO Last administered on 08/04/20 08:47; Start 08/03/20 at 09:00 Piperacillin Sod/ Tazobactam Sod 2.25 gm/Sodium Chloride 50 ml @ 100 mls/hr Q6HRS IV ; Start 08/04/20 at 12:00 Lactobacillus Rhamnosus (Culturelle) 1 cap BID PO Last administered on 08/04/20 08:46; Start 08/03/20 at 21:00 Active Scripts Active Hydrocodone-Acetamin 5-325 mg (Hydrocodone/Acetaminophen) 1 Each Tablet 1 Each PO Q6HRS PRN Culturelle (Lactobacillus Rhamnosus Gg) 1 Each Cap.sprink 1 Cap PO BID 10 Days Furosemide 40 Mg Tablet 40 Mg PO DAILY Acetaminophen 500 Mg Tablet 500 Mg PO PRN Q4HRS PRN Eliquis (Apixaban) 5 Mg Tablet 10 Mg PO BID eliquis 10 mg bid thru 01/07. start eliquis 5 mg bid starting 01/08 [Cefazolin Sodium] 1 GM Vial 1 Gm IVP Q8HRS 5 Days Reported Doxycycline Hyclate 100 Mg Capsule 1 Cap PO BID Mirapex (Pramipexole Di-Hcl) 0.25 Mg Tablet 0.5 Mg PO TID Ferrous Sulfate 325 Mg Tablet 325 Mg PO DAILY Vitamin D3 (Cholecalciferol (Vitamin D3)) 1,000 Unit Tablet 1,000 Unit PO DAILY Sinemet Cr 50-200 Tablet (Carbidopa/Levodopa) 1 Each Tablet.er 1 Tab PO TID Vitals/I & O Vital Sign - Last 24 Hours 08/03/20 08/03/20 08/03/20 08/03/20 14:44 19:20 19:55 23:34 Temp 98.3 98.2 98.7 98.3 98.2 98.7 Pulse 72 74 65 Resp 18 18 20 B/P (MAP) 107/57 (74) 145/67 (93) 126/63 (84) Pulse Ox 95 96 95 O2 Delivery Room Air Room Air Room Air Room Air 08/04/20 08/04/20 08/04/20 03:00 07:27 10:40 Temp 98.6 98.7 97.6 98.6 98.7 97.6 Pulse 83 80 75 Resp 18 18 18 B/P (MAP) 140/72 (94) 128/73 (91) 123/70 (87) Pulse Ox 94 96 98 O2 Delivery Room Air Room Air Room Air Intake and Output 08/03/20 08/03/20 08/04/20 15:00 23:00 07:00 Intake Total 360 ml Output Total 1900 ml 650 ml 1400 ml Balance -1900 ml -650 ml -1040 ml Justifications for Admission Other Justification ELI ROSALES MD Aug 04, 2020 10:57
[2020-08-04] MEDS: PIPERACILLIN/TAZOBACTAM 2.25 GM in IV NORMAL SALINE 50ML 50 ML IV SCH ×2 (11:44→17:08)
--- NOTE | 2020-08-04 12:07 | PDOC2 ---
CONSULT Date of Consult Date of Consult DATE: 08/04/20 TIME: 12:01 Reason for Consult Reason for Consult: Left lower extremity venous insufficiency with lateral skin breakdown History of Present Illness Reason for Visit: Is a very pleasant 85-year-old female who has problems with chronic venous insufficiency and significant swelling of both lower extremities with the left leg affected greater than the right. She had some skin breakdown laterally just above the lateral malleolus which has been chronic and goes through phases of healing followed by worsening symptoms especially with swelling of her leg. She has not been prescribed any compression stockings. She is minimally active from an ambulatory standpoint and denies any lower extremity claudication symptoms. She denies any peripheral intervention. Past Medical History Cardiovascular: HTN, Other (deep venous thrombosis) CENTRAL NERVOUS SYSTEM: Other (Parkinson's) GI: GI bleed Heme/Onc: Anemia NOS (of chronic disease, B thalassemia) Musculoskeletal: Osteoarthritis Rheumatologic: Gout Renal/: Chronic renal insuff, UTI Endocrine: Other (vitamin D deficiency) Past Surgical History Past Surgical History: Cholecystectomy (Laparoscopic), Cataract Removal, Other ( IVC filter) Family History Family History: Hypertension Social History ALCOHOL: none Current Medications Current Medications Current Medications Piperacillin Sod/ Tazobactam Sod 3.375 gm/Sodium Chloride 50 ml @ 100 mls/hr Q8HRS IV Last administered on 08/04/20at 05:49; Start 08/02/20 at 18:00; Stop 08/04/20 at 06:30; Status DC Linezolid/Dextrose 300 ml @ 300 mls/hr Q12HR IV Last administered on 08/02/20at 21:50; Start 08/02/20 at 21:00; Stop 08/03/20 at 07:38; Status DC Acetaminophen (Tylenol) 500 mg PRN Q4HRS PRN PO MILD PAIN / TEMP > 100.3'F Last administered on 08/03/20at 12:49; Start 08/02/20 at 18:15 Vitamin D (Vitamin D3) 1,000 unit DAILY PO Last administered on 08/04/20at 08:46; Start 08/03/20 at 09:00 Pramipexole Dihydrochloride (miraPEX) 0.5 mg TID PO Last administered on 08/04/20at 09:40; Start 08/02/20 at 21:00 Carbidopa/Levodopa (Sinemet Cr) 2 tab.sa TID PO Last administered on 08/04/20at 08:46; Start 08/02/20 at 21:00 Apixaban (Eliquis) 5 mg BID PO Last administered on 08/04/20at 08:46; Start 08/02/20 at 21:00 Furosemide (Lasix) 40 mg DAILY IVP Last administered on 08/04/20at 08:46; Start 08/03/20 at 09:00; Stop 08/04/20 at 10:54; Status DC Info (Anti-Coagulation Monitoring By Pharmacy) 1 each PRN DAILY PRN MC SEE COMMENTS Last administered on 08/03/20at 14:20; Start 08/02/20 at 18:30 Linezolid (Zyvox) 600 mg BID PO Last administered on 08/04/20at 08:47; Start 08/03/20 at 09:00 Fluconazole (Diflucan) 100 mg DAILY PO Last administered on 08/04/20at 08:47; Start 08/03/20 at 09:00 Piperacillin Sod/ Tazobactam Sod 2.25 gm/Sodium Chloride 50 ml @ 100 mls/hr Q6HRS IV Last administered on 08/04/20at 11:44; Start 08/04/20 at 12:00 Lactobacillus Rhamnosus (Culturelle) 1 cap BID PO Last administered on 08/04/20at 08:46; Start 08/03/20 at 21:00 Furosemide (Lasix) 20 mg DAILY IVP ; Start 08/05/20 at 09:00 Active Scripts Active Hydrocodone-Acetamin 5-325 mg (Hydrocodone/Acetaminophen) 1 Each Tablet 1 Each PO Q6HRS PRN Culturelle (Lactobacillus Rhamnosus Gg) 1 Each Cap.sprink 1 Cap PO BID 10 Days Furosemide 40 Mg Tablet 40 Mg PO DAILY Acetaminophen 500 Mg Tablet 500 Mg PO PRN Q4HRS PRN Eliquis (Apixaban) 5 Mg Tablet 10 Mg PO BID eliquis 10 mg bid thru 01/07. start eliquis 5 mg bid starting 01/08 [Cefazolin Sodium] 1 GM Vial 1 Gm IVP Q8HRS 5 Days Reported Doxycycline Hyclate 100 Mg Capsule 1 Cap PO BID Mirapex (Pramipexole Di-Hcl) 0.25 Mg Tablet 0.5 Mg PO TID Ferrous Sulfate 325 Mg Tablet 325 Mg PO DAILY Vitamin D3 (Cholecalciferol (Vitamin D3)) 1,000 Unit Tablet 1,000 Unit PO DAILY Sinemet Cr 50-200 Tablet (Carbidopa/Levodopa) 1 Each Tablet.er 1 Tab PO TID Allergies Allergies: Coded Allergies: No Known Drug Allergies (Unverified , 07/26/20) Physical Exam General: Alert, Oriented X3, Cooperative HEENT: PERRLA, EOMI, Mucous membr. moist/pink Lungs: Clear to auscultation, Normal air movement Heart: Regular rate, Normal S1, Normal S2 Abdomen: Normal bowel sounds, Soft, No tenderness Extremities: No clubbing, No cyanosis, Normal pulses, Other (Positive mild pitting edema of the left leg greater than the right) Skin: Other (Small excoriation of the lateral skin just above the lateral malleolus of the left lower extremity with mild cellulitis, evidence of chronic venous insufficiency skin changes. There are no varicose veins. The right lower extremity is free from lesions) Neuro: Strength at 5/5 X4 ext, Sensation intact, Cranial nerves 3-12 NL Psych/Mental Status: Mental status NL, Mood NL MUSCULOSKELETAL: No joint tenderness, No muscular tenderness noted, Full range of motion without pain Vitals VITALS Vital Signs Date Time Temp Pulse Resp B/P (MAP) Pulse Ox O2 Delivery O2 Flow Rate FiO2 08/04/20 10:40 97.6 75 18 123/70 (87) 98 Room Air 97.6 Labs Labs Laboratory Tests Test 08/02/20 21:00 08/04/20 05:55 White Blood Count 6.9 x10^3/uL (4.0-11.0) 8.0 x10^3/uL (4.0-11.0) Red Blood Count 4.73 x10^6/uL (3.50-5.40) 4.82 x10^6/uL (3.50-5.40) Hemoglobin 9.2 g/dL (12.0-15.5) 9.3 g/dL (12.0-15.5) Hematocrit 29.5 % (36.0-47.0) 30.0 % (36.0-47.0) Mean Corpuscular Volume 62 fL (79-100) 62 fL (79-100) Mean Corpuscular Hemoglobin 19 pg (25-35) 19 pg (25-35) Mean Corpuscular Hemoglobin Concent 31 g/dL (31-37) 31 g/dL (31-37) Red Cell Distribution Width 18.7 % (11.5-14.5) 18.2 % (11.5-14.5) Platelet Count 295 x10^3/uL (140-400) 303 x10^3/uL (140-400) Neutrophils (%) (Auto) 77 % (31-73) 69 % (31-73) Lymphocytes (%) (Auto) 12 % (24-48) 18 % (24-48) Monocytes (%) (Auto) 9 % (0-9) 9 % (0-9) Eosinophils (%) (Auto) 1 % (0-3) 4 % (0-3) Basophils (%) (Auto) 1 % (0-3) 1 % (0-3) Neutrophils # (Auto) 5.3 x10^3/uL (1.8-7.7) 5.6 x10^3/uL (1.8-7.7) Lymphocytes # (Auto) 0.8 x10^3/uL (1.0-4.8) 1.4 x10^3/uL (1.0-4.8) Monocytes # (Auto) 0.6 x10^3/uL (0.0-1.1) 0.7 x10^3/uL (0.0-1.1) Eosinophils # (Auto) 0.1 x10^3/uL (0.0-0.7) 0.3 x10^3/uL (0.0-0.7) Basophils # (Auto) 0.1 x10^3/uL (0.0-0.2) 0.1 x10^3/uL (0.0-0.2) Sodium Level 139 mmol/L (136-145) 137 mmol/L (136-145) Potassium Level 4.4 mmol/L (3.5-5.1) 4.3 mmol/L (3.5-5.1) Chloride Level 104 mmol/L (98-107) 101 mmol/L (98-107) Carbon Dioxide Level 29 mmol/L (21-32) 29 mmol/L (21-32) Anion Gap 6 (6-14) 7 (6-14) Blood Urea Nitrogen 23 mg/dL (7-20) 16 mg/dL (7-20) Creatinine 1.6 mg/dL (0.6-1.0) 1.5 mg/dL (0.6-1.0) Estimated GFR (Cockcroft-Gault) 37.1 39.9 BUN/Creatinine Ratio 14 (6-20) Glucose Level 92 mg/dL (70-99) 71 mg/dL (70-99) Calcium Level 8.8 mg/dL (8.5-10.1) 9.1 mg/dL (8.5-10.1) Magnesium Level 2.1 mg/dL (1.8-2.4) Total Bilirubin 0.4 mg/dL (0.2-1.0) Aspartate Amino Transf (AST/SGOT) 11 U/L (15-37) Alanine Aminotransferase (ALT/SGPT) 8 U/L (14-59) Alkaline Phosphatase 68 U/L (46-116) Total Protein 6.9 g/dL (6.4-8.2) Albumin 2.5 g/dL (3.4-5.0) Albumin/Globulin Ratio 0.6 (1.0-1.7) Platelet Estimate Adequate (ADEQUATE) Hypochromasia Present Anisocytosis Present Target Cells Present Tear Drop Cells Present Ovalocytes Present Iron Level 15 ug/dL (50-170) Total Iron Binding Capacity 127 ug/dL (250-450) Iron Saturation 12 % (15-34) Ferritin 727 ng/mL (8-252) Laboratory Tests Test 08/04/20 05:55 White Blood Count 8.0 x10^3/uL (4.0-11.0) Red Blood Count 4.82 x10^6/uL (3.50-5.40) Hemoglobin 9.3 g/dL (12.0-15.5) Hematocrit 30.0 % (36.0-47.0) Mean Corpuscular Volume 62 fL (79-100) Mean Corpuscular Hemoglobin 19 pg (25-35) Mean Corpuscular Hemoglobin Concent 31 g/dL (31-37) Red Cell Distribution Width 18.2 % (11.5-14.5) Platelet Count 303 x10^3/uL (140-400) Neutrophils (%) (Auto) 69 % (31-73) Lymphocytes (%) (Auto) 18 % (24-48) Monocytes (%) (Auto) 9 % (0-9) Eosinophils (%) (Auto) 4 % (0-3) Basophils (%) (Auto) 1 % (0-3) Neutrophils # (Auto) 5.6 x10^3/uL (1.8-7.7) Lymphocytes # (Auto) 1.4 x10^3/uL (1.0-4.8) Monocytes # (Auto) 0.7 x10^3/uL (0.0-1.1) Eosinophils # (Auto) 0.3 x10^3/uL (0.0-0.7) Basophils # (Auto) 0.1 x10^3/uL (0.0-0.2) Platelet Estimate Adequate (ADEQUATE) Hypochromasia Present Anisocytosis Present Target Cells Present Tear Drop Cells Present Ovalocytes Present Sodium Level 137 mmol/L (136-145) Potassium Level 4.3 mmol/L (3.5-5.1) Chloride Level 101 mmol/L (98-107) Carbon Dioxide Level 29 mmol/L (21-32) Anion Gap 7 (6-14) Blood Urea Nitrogen 16 mg/dL (7-20) Creatinine 1.5 mg/dL (0.6-1.0) Estimated GFR (Cockcroft-Gault) 39.9 Glucose Level 71 mg/dL (70-99) Calcium Level 9.1 mg/dL (8.5-10.1) Iron Level 15 ug/dL (50-170) Total Iron Binding Capacity 127 ug/dL (250-450) Iron Saturation 12 % (15-34) Ferritin 727 ng/mL (8-252) Assessment/Plan Assessment/Plan Chronic venous insufficiency--patient has chronic venous insufficiency which is likely a combination of multiple factors which has led her to have skin breakdown particularly above the left lateral malleolus. She has some mild phlebitis as a result of her venous congestion in the legs. I have recommended that the nurses bathe the patient to clean the sloughed skin and then use a nonadherent dressing overlying the lateral malleolus on the left. I will order graduated compression therapy for both lower extremities to assist with swelling. She will get treated for her superficial cellulitis with IV antibiotics. Once resolved the patient can be discharged. The patient has normal pulses bilaterally and there is no significant peripheral arterial disease that needs to be addressed. I did review the patient's arterial duplex which shows mild disease. All questions were answered to the patient's satisfaction at the bedside this morning. I also discussed the plan with the nursing staff at the bedside. There is no surgical debridement required at this time. The patient can follow-up in the [facility] for further management of her wound. Vascular surgery will sign off at this time. Please not hesitate to contact us with questions or concerns. Angelito Hayden DO, ANGELITO CHAN DO Aug 04, 2020 12:07
[2020-08-04] MEDS: ACETAMINOPHEN 500 MG TABLET PO PRN (13:45)
[2020-08-04 14:31] VITALS: BP 110/65
[2020-08-04] MEDS: ANTI-COAG MONITOR BY PHARMACY. MC PRN (15:09)
[2020-08-04 19:15] VITALS: BP 115/64
[2020-08-04 23:30] VITALS: BP 163/72
[2020-08-05] MEDS: PIPERACILLIN/TAZOBACTAM 2.25 GM in IV NORMAL SALINE 50ML 50 ML IV SCH ×4 (00:33→17:48)
[2020-08-05 03:05] VITALS: BP 138/85
[2020-08-05 07:09] VITALS: BP 128/71
[2020-08-05] MEDS: CARBIDOPA/LEVODOPA CR 25/100MG TABLET.SA. PO SCH ×3 (08:32→21:36)
[2020-08-05] MEDS: FLUCONAZOLE 100 MG TABLET. PO SCH (08:32)
[2020-08-05] MEDS: LINEZOLID 600 MG TABLET PO SCH ×2 (08:32→21:36)
[2020-08-05] MEDS: APIXABAN 5 MG TABLET. PO SCH ×2 (08:32→21:36)
[2020-08-05] MEDS: PRAMIPEXOLE 0.25 MG TABLET. PO SCH ×3 (08:32→21:36)
[2020-08-05] MEDS: LACTOBACILLUS RHAMNOSUS GG 1 CAPSULE. PO SCH ×2 (08:32→21:36)
[2020-08-05] MEDS: CHOLECALCIFEROL (VITAMIN D3) 1,000 UNIT TABLET PO SCH (08:32)
[2020-08-05 08:39] LABS: CALCIUM 9.2 mg/dL (8.5-10.1); CREATININE 1.6 mg/dL (0.6-1.0); GFR 37.1; MAGNESIUM 2.5 mg/dL (1.8-2.4); POTASSIUM 4.3 mmol/L (3.5-5.1)
--- NOTE | 2020-08-05 08:45 | PDOC ---
Infectious Disease Note Subjective: Subjective Pt without complaints Denies any pain Denies F/C/S/N/V/D/SOA/rash Vital Signs: Vital Signs Vital Signs Date Time Temp Pulse Resp B/P (MAP) Pulse Ox O2 Delivery O2 Flow Rate FiO2 08/05/20 07:09 97.8 71 18 128/71 (90) 96 Room Air 97.8 Physical Exam: PHYSICAL EXAM CONSTITUTIONAL: She is sitting up on side of bed. She is cooperative. She is in no acute distress. HEENT: Pupils equal and reactive. She has normal conjunctivae. Oral cavity, pharynx is clear. NECK: Supple. No fullness. LUNGS: Clear to auscultation. HEART: S1, S2. ABDOMEN: Mildly obese, soft, nontender, no guarding, no rebound. EXTREMITIES: Without clubbing, no cyanosis. She has bilateral lower extremity edema with a trace to 1+ on the right. Her left side is 1-2+. Her left leg is warm and dressed. No tracking,wound pics noted SKIN: Otherwise, warm without rash. NEUROLOGIC: She is nonfocal, answers questions appropriately. PSYCHIATRIC: Affect is pleasant. RUE mid line clean Medications: Inpatient Meds: Medications reviewed. Objective: Assessment: LLE cellultisis LLE lymphedema Yeast CKD PAD DVT partial bilateral femoral veins Chronic DVT identified in the left superficial femoral vein. Plan: Plan of Care Cont Zosyn,Zyvox ,Fluconazole Elevation Vascular input noted Local wound care F/u labs and cults D/W nursing TRAV IBARRA MD Aug 05, 2020 08:45
[2020-08-05] MEDS ORDERED: FUROSEMIDE 40 MG/4 ML VIAL. IVP SCH (09:00)
--- NOTE | 2020-08-05 10:14 | PDOC ---
PROGRESS NOTES Date of Service DATE: 08/05/20 TIME: 10:12 Assessment Parkinsons, stable on carbidopa/levodopa and pramipexole Leg wounds, cellulitis, arterial insufficiency, deep venous thrombosis Plan Continue current Parkinson's regimen Rehabilitation modalities Subjective No complaints, does not like the breakfast Objective Vital Signs Date Time Temp Pulse Resp B/P (MAP) Pulse Ox O2 Delivery O2 Flow Rate FiO2 08/05/20 07:09 97.8 71 18 128/71 (90) 96 Room Air 97.8 Intake and Output 08/05/20 07:00 Intake Total 480 ml Output Total 3000 ml Balance -2520 ml Intake Oral 480 ml Output Urine Total 3000 ml PHYSICAL EXAM Alert. Oriented to time, place and person. PERRL. EOMI. CN: no focal findings. Muscle tone: Minimal cogwheel rigidity. Muscle strength: 5/5 DTR: 2+ Plantar reflex: Flexor Gait: not examined in bed. Sensory exam: no abnormal findings. No cerebellar signs elicited. Masked facies, bradykinesia, no tremor. Review of Relevant I have reviewed the following items cathleen (where applicable) has been applied. Labs Laboratory Tests Test 08/04/20 05:55 08/05/20 07:21 White Blood Count 8.0 x10^3/uL (4.0-11.0) Red Blood Count 4.82 x10^6/uL (3.50-5.40) Hemoglobin 9.3 g/dL (12.0-15.5) Hematocrit 30.0 % (36.0-47.0) Mean Corpuscular Volume 62 fL (79-100) Mean Corpuscular Hemoglobin 19 pg (25-35) Mean Corpuscular Hemoglobin Concent 31 g/dL (31-37) Red Cell Distribution Width 18.2 % (11.5-14.5) Platelet Count 303 x10^3/uL (140-400) Neutrophils (%) (Auto) 69 % (31-73) Lymphocytes (%) (Auto) 18 % (24-48) Monocytes (%) (Auto) 9 % (0-9) Eosinophils (%) (Auto) 4 % (0-3) Basophils (%) (Auto) 1 % (0-3) Neutrophils # (Auto) 5.6 x10^3/uL (1.8-7.7) Lymphocytes # (Auto) 1.4 x10^3/uL (1.0-4.8) Monocytes # (Auto) 0.7 x10^3/uL (0.0-1.1) Eosinophils # (Auto) 0.3 x10^3/uL (0.0-0.7) Basophils # (Auto) 0.1 x10^3/uL (0.0-0.2) Platelet Estimate Adequate (ADEQUATE) Hypochromasia Present Anisocytosis Present Target Cells Present Tear Drop Cells Present Ovalocytes Present Sodium Level 137 mmol/L (136-145) 139 mmol/L (136-145) Potassium Level 4.3 mmol/L (3.5-5.1) 4.3 mmol/L (3.5-5.1) Chloride Level 101 mmol/L (98-107) 102 mmol/L (98-107) Carbon Dioxide Level 29 mmol/L (21-32) 30 mmol/L (21-32) Anion Gap 7 (6-14) 7 (6-14) Blood Urea Nitrogen 16 mg/dL (7-20) 15 mg/dL (7-20) Creatinine 1.5 mg/dL (0.6-1.0) 1.6 mg/dL (0.6-1.0) Estimated GFR (Cockcroft-Gault) 39.9 37.1 Glucose Level 71 mg/dL (70-99) 71 mg/dL (70-99) Calcium Level 9.1 mg/dL (8.5-10.1) 9.2 mg/dL (8.5-10.1) Iron Level 15 ug/dL (50-170) Total Iron Binding Capacity 127 ug/dL (250-450) Iron Saturation 12 % (15-34) Ferritin 727 ng/mL (8-252) Magnesium Level 2.5 mg/dL (1.8-2.4) Laboratory Tests Test 08/05/20 07:21 Sodium Level 139 mmol/L (136-145) Potassium Level 4.3 mmol/L (3.5-5.1) Chloride Level 102 mmol/L (98-107) Carbon Dioxide Level 30 mmol/L (21-32) Anion Gap 7 (6-14) Blood Urea Nitrogen 15 mg/dL (7-20) Creatinine 1.6 mg/dL (0.6-1.0) Estimated GFR (Cockcroft-Gault) 37.1 Glucose Level 71 mg/dL (70-99) Calcium Level 9.2 mg/dL (8.5-10.1) Magnesium Level 2.5 mg/dL (1.8-2.4) Medications Current Medications Piperacillin Sod/ Tazobactam Sod 3.375 gm/Sodium Chloride 50 ml @ 100 mls/hr Q8HRS IV Last administered on 08/04/20 05:49; Start 08/02/20 at 18:00; Stop 08/04/20 at 06:30; Status DC Linezolid/Dextrose 300 ml @ 300 mls/hr Q12HR IV Last administered on 08/02/20 21:50; Start 08/02/20 at 21:00; Stop 08/03/20 at 07:38; Status DC Acetaminophen (Tylenol) 500 mg PRN Q4HRS PRN PO MILD PAIN / TEMP > 100.3'F Last administered on 08/04/20 13:45; Start 08/02/20 at 18:15 Vitamin D (Vitamin D3) 1,000 unit DAILY PO Last administered on 08/05/20 08:32; Start 08/03/20 at 09:00 Pramipexole Dihydrochloride (miraPEX) 0.5 mg TID PO Last administered on 08/05/20 08:32; Start 08/02/20 at 21:00 Carbidopa/Levodopa (Sinemet Cr) 2 tab.sa TID PO Last administered on 08/05/20 08:32; Start 08/02/20 at 21:00 Apixaban (Eliquis) 5 mg BID PO Last administered on 08/05/20 08:32; Start 08/02/20 at 21:00 Furosemide (Lasix) 40 mg DAILY IVP Last administered on 08/04/20 08:46; Start 08/03/20 at 09:00; Stop 08/04/20 at 10:54; Status DC Info (Anti-Coagulation Monitoring By Pharmacy) 1 each PRN DAILY PRN MC SEE COMMENTS Last administered on 08/04/20 15:09; Start 08/02/20 at 18:30 Linezolid (Zyvox) 600 mg BID PO Last administered on 3/15/21at 08:32; Start 08/03/20 at 09:00 Fluconazole (Diflucan) 100 mg DAILY PO Last administered on 08/05/20at 08:32; Start 08/03/20 at 09:00 Piperacillin Sod/ Tazobactam Sod 2.25 gm/Sodium Chloride 50 ml @ 100 mls/hr Q6HRS IV Last administered on 08/05/20at 06:02; Start 08/04/20 at 12:00 Lactobacillus Rhamnosus (Culturelle) 1 cap BID PO Last administered on 08/05/20at 08:32; Start 08/03/20 at 21:00 Furosemide (Lasix) 20 mg DAILY IVP Last administered on 08/05/20at 08:32; Start 08/05/20 at 09:00 Active Scripts Active Hydrocodone-Acetamin 5-325 mg (Hydrocodone/Acetaminophen) 1 Each Tablet 1 Each PO Q6HRS PRN Culturelle (Lactobacillus Rhamnosus Gg) 1 Each Cap.sprink 1 Cap PO BID 10 Days Furosemide 40 Mg Tablet 40 Mg PO DAILY Acetaminophen 500 Mg Tablet 500 Mg PO PRN Q4HRS PRN Eliquis (Apixaban) 5 Mg Tablet 10 Mg PO BID eliquis 10 mg bid thru 01/07. start eliquis 5 mg bid starting 01/08 [Cefazolin Sodium] 1 GM Vial 1 Gm IVP Q8HRS 5 Days Reported Doxycycline Hyclate 100 Mg Capsule 1 Cap PO BID Mirapex (Pramipexole Di-Hcl) 0.25 Mg Tablet 0.5 Mg PO TID Ferrous Sulfate 325 Mg Tablet 325 Mg PO DAILY Vitamin D3 (Cholecalciferol (Vitamin D3)) 1,000 Unit Tablet 1,000 Unit PO DAILY Sinemet Cr 50-200 Tablet (Carbidopa/Levodopa) 1 Each Tablet.er 1 Tab PO TID Vitals/I & O Vital Sign - Last 24 Hours 08/04/20 08/04/20 08/04/20 08/04/20 10:40 14:31 19:15 19:50 Temp 97.6 97.4 98.1 97.6 97.4 98.1 Pulse 75 78 74 Resp 18 18 20 B/P (MAP) 123/70 (87) 110/65 (80) 115/64 (81) Pulse Ox 98 100 99 O2 Delivery Room Air Room Air Room Air Room Air 08/04/20 08/05/20 08/05/20 23:30 03:05 07:09 Temp 97.3 97.3 97.8 97.3 97.3 97.8 Pulse 70 87 71 Resp 18 18 18 B/P (MAP) 163/72 (102) 138/85 (102) 128/71 (90) Pulse Ox 97 95 96 O2 Delivery Room Air Room Air Room Air Intake and Output 08/04/20 08/04/20 08/05/20 15:00 23:00 07:00 Intake Total 480 ml Output Total 2300 ml 700 ml Balance -2300 ml -220 ml Justicifation of Admission Dx: Justifications for Admission: Justification of Admission Dx: Comment: Cellulitis: Cellulitis CRYSTAL CORDON MD Aug 05, 2020 10:14
--- NOTE | 2020-08-05 10:17 | PDOC ---
PROGRESS NOTES Date of Service DATE: 08/05/20 TIME: 10:11 Subjective Subjective feels better. excellent diruresis and leg edema much improved,. lab reviewed. vascular surgery consult reviewed,. spoke with PT who said she is a good candidate for in patient rehab. Objective Objective Vital Signs Date Time Temp Pulse Resp B/P (MAP) Pulse Ox O2 Delivery O2 Flow Rate FiO2 08/05/20 07:09 97.8 71 18 128/71 (90) 96 Room Air 97.8 Intake and Output 08/05/20 07:00 Intake Total 480 ml Output Total 3000 ml Balance -2520 ml Intake Oral 480 ml Output Urine Total 3000 ml Physical Exam Abdomen: Soft Heart: Regular rate, Normal S1, Normal S2 Extremities: Other (no edema RLE. LLE wrapped with decreased edema) General: Alert HEENT: Atraumatic Lungs: Clear to auscultation Neuro: Normal speech Psych/Mental Status: Mood NL Skin: No rashes, Other (left leg dressing) Assessment Assessment 1. Cellulitis of the left lower extremity. 2. Venous stasis wound, left leg. 3. Peripheral arterial disease. 4. Chronic venous insufficiency of the legs. 5. Bilateral femoral vein thrombosis, treated with Eliquis and she has an inferior vena cava filter placed in 2012. 6. Chronic kidney disease stage 3. 7. Severe protein-calorie malnutrition. 8. Thalassemia trait. 9. Anemia of chronic disease. 10. Parkinson's disease. 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 Labs Laboratory Tests Test 08/04/20 05:55 08/05/20 07:21 White Blood Count 8.0 x10^3/uL (4.0-11.0) Red Blood Count 4.82 x10^6/uL (3.50-5.40) Hemoglobin 9.3 g/dL (12.0-15.5) Hematocrit 30.0 % (36.0-47.0) Mean Corpuscular Volume 62 fL (79-100) Mean Corpuscular Hemoglobin 19 pg (25-35) Mean Corpuscular Hemoglobin Concent 31 g/dL (31-37) Red Cell Distribution Width 18.2 % (11.5-14.5) Platelet Count 303 x10^3/uL (140-400) Neutrophils (%) (Auto) 69 % (31-73) Lymphocytes (%) (Auto) 18 % (24-48) Monocytes (%) (Auto) 9 % (0-9) Eosinophils (%) (Auto) 4 % (0-3) Basophils (%) (Auto) 1 % (0-3) Neutrophils # (Auto) 5.6 x10^3/uL (1.8-7.7) Lymphocytes # (Auto) 1.4 x10^3/uL (1.0-4.8) Monocytes # (Auto) 0.7 x10^3/uL (0.0-1.1) Eosinophils # (Auto) 0.3 x10^3/uL (0.0-0.7) Basophils # (Auto) 0.1 x10^3/uL (0.0-0.2) Platelet Estimate Adequate (ADEQUATE) Hypochromasia Present Anisocytosis Present Target Cells Present Tear Drop Cells Present Ovalocytes Present Sodium Level 137 mmol/L (136-145) 139 mmol/L (136-145) Potassium Level 4.3 mmol/L (3.5-5.1) 4.3 mmol/L (3.5-5.1) Chloride Level 101 mmol/L (98-107) 102 mmol/L (98-107) Carbon Dioxide Level 29 mmol/L (21-32) 30 mmol/L (21-32) Anion Gap 7 (6-14) 7 (6-14) Blood Urea Nitrogen 16 mg/dL (7-20) 15 mg/dL (7-20) Creatinine 1.5 mg/dL (0.6-1.0) 1.6 mg/dL (0.6-1.0) Estimated GFR (Cockcroft-Gault) 39.9 37.1 Glucose Level 71 mg/dL (70-99) 71 mg/dL (70-99) Calcium Level 9.1 mg/dL (8.5-10.1) 9.2 mg/dL (8.5-10.1) Iron Level 15 ug/dL (50-170) Total Iron Binding Capacity 127 ug/dL (250-450) Iron Saturation 12 % (15-34) Ferritin 727 ng/mL (8-252) Magnesium Level 2.5 mg/dL (1.8-2.4) Laboratory Tests Test 08/05/20 07:21 Sodium Level 139 mmol/L (136-145) Potassium Level 4.3 mmol/L (3.5-5.1) Chloride Level 102 mmol/L (98-107) Carbon Dioxide Level 30 mmol/L (21-32) Anion Gap 7 (6-14) Blood Urea Nitrogen 15 mg/dL (7-20) Creatinine 1.6 mg/dL (0.6-1.0) Estimated GFR (Cockcroft-Gault) 37.1 Glucose Level 71 mg/dL (70-99) Calcium Level 9.2 mg/dL (8.5-10.1) Magnesium Level 2.5 mg/dL (1.8-2.4) Medications Current Medications Piperacillin Sod/ Tazobactam Sod 3.375 gm/Sodium Chloride 50 ml @ 100 mls/hr Q8HRS IV Last administered on 08/04/20at 05:49; Start 08/02/20 at 18:00; Stop 08/04/20 at 06:30; Status DC Linezolid/Dextrose 300 ml @ 300 mls/hr Q12HR IV Last administered on 08/02/20at 21:50; Start 08/02/20 at 21:00; Stop 08/03/20 at 07:38; Status DC Acetaminophen (Tylenol) 500 mg PRN Q4HRS PRN PO MILD PAIN / TEMP > 100.3'F Last administered on 08/04/20at 13:45; Start 08/02/20 at 18:15 Vitamin D (Vitamin D3) 1,000 unit DAILY PO Last administered on 08/05/20at 08:32; Start 08/03/20 at 09:00 Pramipexole Dihydrochloride (miraPEX) 0.5 mg TID PO Last administered on 08/05/20 08:32; Start 08/02/20 at 21:00 Carbidopa/Levodopa (Sinemet Cr) 2 tab.sa TID PO Last administered on 08/05/20 08:32; Start 08/02/20 at 21:00 Apixaban (Eliquis) 5 mg BID PO Last administered on 08/05/20at 08:32; Start 08/02/20 at 21:00 Furosemide (Lasix) 40 mg DAILY IVP Last administered on 08/04/20at 08:46; Start 08/03/20 at 09:00; Stop 08/04/20 at 10:54; Status DC Info (Anti-Coagulation Monitoring By Pharmacy) 1 each PRN DAILY PRN MC SEE COMMENTS Last administered on 08/04/20at 15:09; Start 08/02/20 at 18:30 Linezolid (Zyvox) 600 mg BID PO Last administered on 08/05/20 08:32; Start at 09:00 Fluconazole (Diflucan) 100 mg DAILY PO Last administered on 08/05/20 08:32; Start 08/03/20 at 09:00 Piperacillin Sod/ Tazobactam Sod 2.25 gm/Sodium Chloride 50 ml @ 100 mls/hr Q6HRS IV Last administered on 08/05/20 06:02; Start 08/04/20 at 12:00 Lactobacillus Rhamnosus (Culturelle) 1 cap BID PO Last administered on 08/05/20at 08:32; Start 08/03/20 at 21:00 Furosemide (Lasix) 20 mg DAILY IVP Last administered on 08/05/20 08:32; Start 08/05/20 at 09:00 Active Scripts Active Hydrocodone-Acetamin 5-325 mg (Hydrocodone/Acetaminophen) 1 Each Tablet 1 Each PO Q6HRS PRN Culturelle (Lactobacillus Rhamnosus Gg) 1 Each Cap.sprink 1 Cap PO BID 10 Days Furosemide 40 Mg Tablet 40 Mg PO DAILY Acetaminophen 500 Mg Tablet 500 Mg PO PRN Q4HRS PRN Eliquis (Apixaban) 5 Mg Tablet 10 Mg PO BID eliquis 10 mg bid thru 01/07. start eliquis 5 mg bid starting 01/08 [Cefazolin Sodium] 1 GM Vial 1 Gm IVP Q8HRS 5 Days Reported Doxycycline Hyclate 100 Mg Capsule 1 Cap PO BID Mirapex (Pramipexole Di-Hcl) 0.25 Mg Tablet 0.5 Mg PO TID Ferrous Sulfate 325 Mg Tablet 325 Mg PO DAILY Vitamin D3 (Cholecalciferol (Vitamin D3)) 1,000 Unit Tablet 1,000 Unit PO DAILY Sinemet Cr 50-200 Tablet (Carbidopa/Levodopa) 1 Each Tablet.er 1 Tab PO TID Vitals/I & O Vital Sign - Last 24 Hours 08/04/20 08/04/20 08/04/20 08/04/20 10:40 14:31 19:15 19:50 Temp 97.6 97.4 98.1 97.6 97.4 98.1 Pulse 75 78 74 Resp 18 18 20 B/P (MAP) 123/70 (87) 110/65 (80) 115/64 (81) Pulse Ox 98 100 99 O2 Delivery Room Air Room Air Room Air Room Air 08/04/20 08/05/20 08/05/20 23:30 03:05 07:09 Temp 97.3 97.3 97.8 97.3 97.3 97.8 Pulse 70 87 71 Resp 18 18 18 B/P (MAP) 163/72 (102) 138/85 (102) 128/71 (90) Pulse Ox 97 95 96 O2 Delivery Room Air Room Air Room Air Intake and Output 08/04/20 08/04/20 08/05/20 15:00 23:00 07:00 Intake Total 480 ml Output Total 2300 ml 700 ml Balance -2300 ml -220 ml Justifications for Admission Other Justification ELI ROSALES MD Aug 05, 2020 10:16
[2020-08-05 10:38] VITALS: BP 135/79
[2020-08-05 14:26] VITALS: BP 111/65
--- NOTE | 2020-08-05 17:04 | NUR ---
Wound/Ostomy Care Wound Type/Assessment: Patient seen per wound care consult. See wound assessment. patient appears to have possible hematoma to left lower leg that has opened and draining. Wound cleansed, assessed, and measured. Wound is deeper than appears and has blackened necrotic tissue that may need to be removed. Treatment Recommendations/Plan: Recommendations for surgical consult regarding this wound and to cover with Aquacel Ag, cover with ABD pad, and kerlix. Change every other day. vascular will assess wound again tomorrow and determine POC. Education provided: Pt educated on dressing changes and PU prevention. Patient is confused at times. Offloading surface/device: N/A Recommended Referrals/Tests: Surgical consult. Discharge Recommendations for dressings: Dressing applied. No other wounds noted. Dressing change instructions left in room. Patient in chair and call light in reach as well as bed alarm in place. Spoke with RN regarding POC. Wound care will follow patient.
[2020-08-05 19:00] VITALS: BP 113/64
[2020-08-05 23:00] VITALS: BP 141/73
[2020-08-06] MEDS: PIPERACILLIN/TAZOBACTAM 2.25 GM in IV NORMAL SALINE 50ML 50 ML IV SCH ×3 (00:29→11:32)
--- NOTE | 2020-08-06 01:12 | NUR ---
Report rcvd. from ANAHI Urbina and patient care assumed at this time.
[2020-08-06 03:00] VITALS: BP 136/72
[2020-08-06 06:26] LABS: CALCIUM 9.1 mg/dL (8.5-10.1); CREATININE 1.6 mg/dL (0.6-1.0); GFR 37.1; MAGNESIUM 2.3 mg/dL (1.8-2.4); POTASSIUM 4.1 mmol/L (3.5-5.1)
[2020-08-06 07:00] VITALS: BP 133/79
[2020-08-06] MEDS: CARBIDOPA/LEVODOPA CR 25/100MG TABLET.SA. PO SCH ×2 (08:08→13:00)
[2020-08-06] MEDS: ACETAMINOPHEN 500 MG TABLET PO PRN (08:08)
[2020-08-06] MEDS: PRAMIPEXOLE 0.25 MG TABLET. PO SCH ×2 (08:08→13:00)
[2020-08-06] MEDS: LACTOBACILLUS RHAMNOSUS GG 1 CAPSULE. PO SCH (08:09)
[2020-08-06] MEDS: LINEZOLID 600 MG TABLET PO SCH (08:09)
[2020-08-06] MEDS: FLUCONAZOLE 100 MG TABLET. PO SCH (08:09)
[2020-08-06] MEDS: APIXABAN 5 MG TABLET. PO SCH (08:09)
[2020-08-06] MEDS: CHOLECALCIFEROL (VITAMIN D3) 1,000 UNIT TABLET PO SCH (08:09)
[2020-08-06] MEDS ORDERED: FUROSEMIDE 20 MG TABLET PO SCH (09:00)
--- NOTE | 2020-08-06 10:21 | PDOC ---
PROGRESS NOTES Date of Service DATE: 08/06/20 TIME: 10:18 Subjective Subjective feels well. comfortable . had a good diuresis. lab reviewed. Objective Objective Vital Signs Date Time Temp Pulse Resp B/P (MAP) Pulse Ox O2 Delivery O2 Flow Rate FiO2 08/06/20 08:05 Room Air 08/06/20 07:00 97.7 84 18 133/79 (97) 94 97.7 Intake and Output 08/06/20 07:00 Intake Total 50 ml Output Total 1650 ml Balance -1600 ml IV Total 50 ml Output Urine Total 1650 ml # Bowel Movements 1 Physical Exam Abdomen: Soft Heart: Regular rate, Normal S1, Normal S2 Extremities: Other (RLE no edema. LLE with dry dressing and 1 plus edema left foot) General: Alert HEENT: Atraumatic Lungs: Clear to auscultation Neuro: Normal speech Psych/Mental Status: Mood NL Skin: No rashes Assessment Assessment 1. Cellulitis of the left lower extremity. 2. Venous stasis wound, left leg. 3. Peripheral arterial disease. 4. Chronic venous insufficiency of the legs. 5. Bilateral femoral vein thrombosis, treated with Eliquis and she has an inferior vena cava filter placed in 2012. 6. Chronic kidney disease stage 3. 7. Severe protein-calorie malnutrition. 8. Thalassemia trait. 9. Anemia of chronic disease. 10. Parkinson's disease. 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 Labs Laboratory Tests Test 08/05/20 07:21 08/06/20 05:30 Sodium Level 139 mmol/L (136-145) 139 mmol/L (136-145) Potassium Level 4.3 mmol/L (3.5-5.1) 4.1 mmol/L (3.5-5.1) Chloride Level 102 mmol/L (98-107) 103 mmol/L (98-107) Carbon Dioxide Level 30 mmol/L (21-32) 29 mmol/L (21-32) Anion Gap 7 (6-14) 7 (6-14) Blood Urea Nitrogen 15 mg/dL (7-20) 17 mg/dL (7-20) Creatinine 1.6 mg/dL (0.6-1.0) 1.6 mg/dL (0.6-1.0) Estimated GFR (Cockcroft-Gault) 37.1 37.1 Glucose Level 71 mg/dL (70-99) 87 mg/dL (70-99) Calcium Level 9.2 mg/dL (8.5-10.1) 9.1 mg/dL (8.5-10.1) Magnesium Level 2.5 mg/dL (1.8-2.4) 2.3 mg/dL (1.8-2.4) Laboratory Tests Test 08/06/20 05:30 Sodium Level 139 mmol/L (136-145) Potassium Level 4.1 mmol/L (3.5-5.1) Chloride Level 103 mmol/L (98-107) Carbon Dioxide Level 29 mmol/L (21-32) Anion Gap 7 (6-14) Blood Urea Nitrogen 17 mg/dL (7-20) Creatinine 1.6 mg/dL (0.6-1.0) Estimated GFR (Cockcroft-Gault) 37.1 Glucose Level 87 mg/dL (70-99) Calcium Level 9.1 mg/dL (8.5-10.1) Magnesium Level 2.3 mg/dL (1.8-2.4) Microbiology 08/02/20 Gram Stain - Final, Resulted 08/02/20 Aerobic and Anaerobic Culture, Resulted Pending Medications Current Medications Piperacillin Sod/ Tazobactam Sod 3.375 gm/Sodium Chloride 50 ml @ 100 mls/hr Q8HRS IV Last administered on 08/04/20at 05:49; Start 08/02/20 at 18:00; Stop 08/04/20 at 06:30; Status DC Linezolid/Dextrose 300 ml @ 300 mls/hr Q12HR IV Last administered on 08/02/20at 21:50; Start 08/02/20 at 21:00; Stop 08/03/20 at 07:38; Status DC Acetaminophen (Tylenol) 500 mg PRN Q4HRS PRN PO MILD PAIN / TEMP > 100.3'F Last administered on 08/06/20at 08:08; Start 08/02/20 at 18:15 Vitamin D (Vitamin D3) 1,000 unit DAILY PO Last administered on 08/06/20at 08:0 9; Start 08/03/20 at 09:00 Pramipexole Dihydrochloride (miraPEX) 0.5 mg TID PO Last administered on 08/06/20at 08:08; Start 08/02/20 at 21:00 Carbidopa/Levodopa (Sinemet Cr) 2 tab.sa TID PO Last administered on 08/06/20at 08:08; Start 08/02/20 at 21:00 Apixaban (Eliquis) 5 mg BID PO Last administered on 08/06/20at 08:09; Start 08/02/20 at 21:00 Furosemide (Lasix) 40 mg DAILY IVP Last administered on 08/04/20at 08:46; Start 08/03/20 at 09:00; Stop 08/04/20 at 10:54; Status DC Info (Anti-Coagulation Monitoring By Pharmacy) 1 each PRN DAILY PRN MC SEE COMMENTS Last administered on 08/04/20at 15:09; Start 08/02/20 at 18:30 Linezolid (Zyvox) 600 mg BID PO Last administered on 08/06/20at 08:09; Start 08/03/20 at 09:00 Fluconazole (Diflucan) 100 mg DAILY PO Last administered on 08/06/20at 08:09; Start 08/03/20 at 09:00 Piperacillin Sod/ Tazobactam Sod 2.25 gm/Sodium Chloride 50 ml @ 100 mls/hr Q6HRS IV Last administered on 08/06/20at 05:41; Start 08/04/20 at 12:00 Lactobacillus Rhamnosus (Culturelle) 1 cap BID PO Last administered on 08/06/20at 08:09; Start 08/03/20 at 21:00 Furosemide (Lasix) 20 mg DAILY IVP Last administered on 08/05/20at 08:32; Start 08/05/20 at 09:00; Stop 08/05/20 at 10:17; Status DC Furosemide (Lasix) 20 mg DAILY PO Last administered on 08/06/20at 08:09; Start 08/06/20 at 09:00 Active Scripts Active Hydrocodone-Acetamin 5-325 mg (Hydrocodone/Acetaminophen) 1 Each Tablet 1 Each PO Q6HRS PRN Culturelle (Lactobacillus Rhamnosus Gg) 1 Each Cap.sprink 1 Cap PO BID 10 Days Furosemide 40 Mg Tablet 40 Mg PO DAILY Acetaminophen 500 Mg Tablet 500 Mg PO PRN Q4HRS PRN Eliquis (Apixaban) 5 Mg Tablet 10 Mg PO BID eliquis 10 mg bid thru 01/07. start eliquis 5 mg bid starting 01/08 [Cefazolin Sodium] 1 GM Vial 1 Gm IVP Q8HRS 5 Days Reported Doxycycline Hyclate 100 Mg Capsule 1 Cap PO BID Mirapex (Pramipexole Di-Hcl) 0.25 Mg Tablet 0.5 Mg PO TID Ferrous Sulfate 325 Mg Tablet 325 Mg PO DAILY Vitamin D3 (Cholecalciferol (Vitamin D3)) 1,000 Unit Tablet 1,000 Unit PO DAILY Sinemet Cr 50-200 Tablet (Carbidopa/Levodopa) 1 Each Tablet.er 1 Tab PO TID Vitals/I & O Vital Sign - Last 24 Hours 08/05/20 08/05/20 08/05/20 08/05/20 10:38 14:26 19:00 20:00 Temp 97.8 97.5 98.6 97.8 97.5 98.6 Pulse 77 78 75 Resp 18 18 18 B/P (MAP) 135/79 (97) 111/65 (80) 113/64 (80) Pulse Ox 97 96 98 O2 Delivery Room Air Room Air Room Air Room Air 08/05/20 08/06/20 08/06/20 08/06/20 23:00 03:00 07:00 08:05 Temp 98.2 98.4 97.7 98.2 98.4 97.7 Pulse 69 76 84 Resp 18 18 18 B/P (MAP) 141/73 (95) 136/72 (93) 133/79 (97) Pulse Ox 96 95 94 O2 Delivery Room Air Room Air Room Air Room Air Intake and Output 08/05/20 08/05/20 08/06/20 15:00 23:00 07:00 Intake Total 50 ml Output Total 1100 ml 550 ml Balance -1100 ml -500 ml Justifications for Admission Other Justification ELI ROSALES MD Aug 06, 2020 10:21
[2020-08-06] MEDS ORDERED: PIPE2.257 IV (10:32)
[2020-08-06] MEDS ORDERED: Fluconazole PO (10:32)
[2020-08-06] MEDS ORDERED: LINE600T12 PO (10:32)
[2020-08-06] MEDS ORDERED: APIX5TAB PO (10:32)
[2020-08-06] MEDS ORDERED: FURO20TA3 PO (10:32)
--- NOTE | 2020-08-06 10:33 | SNU/HH DC ---
DISCHARGE ORDERS DISCHARGE INFORMATION: DISCHARGE DATE: Aug 06, 2020 CONDITION ON DISCHARGE: Stable CODE STATUS: Code Status: Full POST DISCHARGE ORDERS: ACTIVITY ORDERS: Resume previous activity, Activity as tolerated WEIGHT BEARING STATUS: As tolerated DIET AFTER DISCHARGE: Regular WOUND/INCISION CARE: No wound care needed CHECKS AFTER DISCHARGE: CHECKS AFTER DISCHARGE: Check blood press - daily, Check your Temp as needed FOLLOW-UP: LAB ORDERS FOR FOLLOW-UP: cbc and bmp and prealbumin 01/05 TREATMENT/EQUIPMENT ORDERS: ADAPTIVE EQUIPMENT NEEDED: None Physical Therapy For: Evalulation/Treatment Occupational Therapy For: Evaluation/Treatment DISCHARGE MEDICATIONS: Home Meds Active Scripts Furosemide (FUROSEMIDE) 20 Mg Tablet, 20 MG PO DAILY for leg edema, #30 TAB Prov:ELI ROSALES MD 08/06/20 Apixaban (ELIQUIS) 5 Mg Tablet, 5 MG PO BID for DVT both legs, #60 TAB Prov:ELI ROSALES MD 08/06/20 [Fluconazole] 100 MG TABLET No Conflict Check, 100 MG PO DAILY for yeast in foot for 5 Days, #5 TAB Prov:ELI ROSALES MD 08/06/20 Linezolid (ZYVOX) 600 Mg Tablet, 600 MG PO BID for cellulitis for 5 Days, #10 TAB Prov:ELI ROSALES MD 08/06/20 Ovcemeqfuxxg-Dlaq-Gddmwaun,Iso (ZOSYN 2.25 GM PRE-MIX BAG) 2.25 Gm/50 Ml Froz.piggy, 2.25 GM IV Q6HRS for celluliits for 5 Days, EACH Prov:ELI ROSALES MD 08/06/20 Hydrocodone/Acetaminophen (Hydrocodone-Acetamin 5-325 mg) 1 Each Tablet, 1 EACH PO Q6HRS PRN for PAIN, #12 TAB Prov:MARGARETTE ESCALANTE DO 07/28/20 Lactobacillus Rhamnosus Gg (CULTURELLE) 1 Each Cap.sprink, 1 CAP PO BID for probiotic for 10 Days, #20 CAP Prov:ELI ROSALES MD 01/05/20 Acetaminophen (ACETAMINOPHEN) 500 Mg Tablet, 500 MG PO PRN Q4HRS PRN for MILD PAIN / TEMP > 100.3'F, #20 TAB Prov:ELI ROSALES MD 01/05/20 Reported Medications Pramipexole Di-Hcl (MIRAPEX) 0.25 Mg Tablet, 0.5 MG PO TID for Parkinsons, TAB 01/01/20 Cholecalciferol (Vitamin D3) (VITAMIN D3) 1,000 Unit Tablet, 1000 UNIT PO DAILY, TAB 11/30/17 Carbidopa/Levodopa (SINEMET CR 50-200 TABLET) 1 Each Tablet.er, 1 TAB PO TID, TAB 09/16/15 Discontinued Reported Medications Doxycycline Hyclate (DOXYCYCLINE HYCLATE) 100 Mg Capsule, 1 CAP PO BID, #14 CAP 07/28/20 Ferrous Sulfate (FERROUS SULFATE) 325 Mg Tablet, 325 MG PO DAILY, TAB 11/30/17 Discontinued Scripts Furosemide (FUROSEMIDE) 40 Mg Tablet, 40 MG PO DAILY for leg edema, #30 TAB Prov:ELI ROSALSE MD 01/05/20 Apixaban (ELIQUIS) 5 Mg Tablet, 10 MG PO BID for DVT, #6 TAB eliquis 10 mg bid thru 01/07. start eliquis 5 mg bid starting 01/08 Prov:ELI ROSALES MD 01/05/20 [ceFAZolin SODIUM IV Push] 1 GM VIAL No Conflict Check, 1 GM IVP Q8HRS for cellulitis for 5 Days, #15 EACH Prov:ELI ROSALES MD 01/05/20 ELI ROSALES MD Aug 06, 2020 10:33
--- NOTE | 2020-08-06 10:34 | SNU/HH DC ---
DISCHARGE ORDERS DISCHARGE INFORMATION: DISCHARGE DATE: Aug 06, 2020 CONDITION ON DISCHARGE: Stable CODE STATUS: Code Status: DNR/DNI POST DISCHARGE ORDERS: ACTIVITY ORDERS: Resume previous activity, Activity as tolerated WEIGHT BEARING STATUS: As tolerated DIET AFTER DISCHARGE: Regular WOUND/INCISION CARE: No wound care needed CHECKS AFTER DISCHARGE: CHECKS AFTER DISCHARGE: Check blood press - daily, Check your Temp as needed FOLLOW-UP: LAB ORDERS FOR FOLLOW-UP: cbc and bmp and prealbumin 01/05 TREATMENT/EQUIPMENT ORDERS: ADAPTIVE EQUIPMENT NEEDED: None Physical Therapy For: Evalulation/Treatment Occupational Therapy For: Evaluation/Treatment DISCHARGE MEDICATIONS: Home Meds Active Scripts Furosemide (FUROSEMIDE) 20 Mg Tablet, 20 MG PO DAILY for leg edema, #30 TAB Prov:ELI ROSALES MD 08/06/20 Apixaban (ELIQUIS) 5 Mg Tablet, 5 MG PO BID for DVT both legs, #60 TAB Prov:ELI ROSALES MD 08/06/20 [Fluconazole] 100 MG TABLET No Conflict Check, 100 MG PO DAILY for yeast in foot for 5 Days, #5 TAB Prov:ELI ROSALES MD 08/06/20 Linezolid (ZYVOX) 600 Mg Tablet, 600 MG PO BID for cellulitis for 5 Days, #10 TAB Prov:ELI ROSALES MD 08/06/20 Wniylapeiocq-Zzln-Qrakcmnn,Iso (ZOSYN 2.25 GM PRE-MIX BAG) 2.25 Gm/50 Ml Froz.piggy, 2.25 GM IV Q6HRS for celluliits for 5 Days, EACH Prov:ELI ROSALES MD 08/06/20 Hydrocodone/Acetaminophen (Hydrocodone-Acetamin 5-325 mg) 1 Each Tablet, 1 EACH PO Q6HRS PRN for PAIN, #12 TAB Prov:MARGARETTE ESCALANTE DO 07/28/20 Lactobacillus Rhamnosus Gg (CULTURELLE) 1 Each Cap.sprink, 1 CAP PO BID for probiotic for 10 Days, #20 CAP Prov:ELI ROSALES MD 01/05/20 Acetaminophen (ACETAMINOPHEN) 500 Mg Tablet, 500 MG PO PRN Q4HRS PRN for MILD PAIN / TEMP > 100.3'F, #20 TAB Prov:ELI ROSALES MD 01/05/20 Reported Medications Pramipexole Di-Hcl (MIRAPEX) 0.25 Mg Tablet, 0.5 MG PO TID for Parkinsons, TAB 01/01/20 Cholecalciferol (Vitamin D3) (VITAMIN D3) 1,000 Unit Tablet, 1000 UNIT PO DAILY, TAB 11/30/17 Carbidopa/Levodopa (SINEMET CR 50-200 TABLET) 1 Each Tablet.er, 1 TAB PO TID, TAB 09/16/15 Discontinued Reported Medications Doxycycline Hyclate (DOXYCYCLINE HYCLATE) 100 Mg Capsule, 1 CAP PO BID, #14 CAP 07/28/20 Ferrous Sulfate (FERROUS SULFATE) 325 Mg Tablet, 325 MG PO DAILY, TAB 11/30/17 Discontinued Scripts Furosemide (FUROSEMIDE) 40 Mg Tablet, 40 MG PO DAILY for leg edema, #30 TAB Prov:EIL ROSALES MD 01/05/20 Apixaban (ELIQUIS) 5 Mg Tablet, 10 MG PO BID for DVT, #6 TAB eliquis 10 mg bid thru 01/07. start eliquis 5 mg bid starting 01/08 Prov:ELI ROSALES MD 01/05/20 [ceFAZolin SODIUM IV Push] 1 GM VIAL No Conflict Check, 1 GM IVP Q8HRS for cellulitis for 5 Days, #15 EACH Prov:ELI ROSALES MD 01/05/20 ELI ROSALES MD Aug 06, 2020 10:34
--- NOTE | 2020-08-06 10:39 | PDOC ---
Provider Note Date of Service: DATE: 08/06/20 TIME: 10:39 Provider Note discharge summary dictated # [id number] Justifications for Admission Other Justification ELI ROSALES MD Aug 06, 2020 10:39
[2020-08-06 10:48] VITALS: BP 130/71
--- NOTE | 2020-08-06 10:55 | PDOC ---
Infectious Disease Note Subjective: Subjective Pt without complaints Denies any pain Denies F/C/S/N/V/D/SOA/rash Vital Signs: Vital Signs Vital Signs Date Time Temp Pulse Resp B/P (MAP) Pulse Ox O2 Delivery O2 Flow Rate FiO2 08/06/20 10:48 97.8 70 18 130/71 (90) 96 Room Air 97.8 Physical Exam: PHYSICAL EXAM CONSTITUTIONAL: She is sitting up on side of bed. She is cooperative. She is in no acute distress. HEENT: Pupils equal and reactive. She has normal conjunctivae. Oral cavity, pharynx is clear. NECK: Supple. No fullness. LUNGS: Clear to auscultation. HEART: S1, S2. ABDOMEN: Mildly obese, soft, nontender, no guarding, no rebound. EXTREMITIES: Without clubbing, no cyanosis. She has bilateral lower extremity edema with a trace to 1+ on the right. Her left side is 1-2+. Her left leg is warm and dressed. No tracking,wound pics noted SKIN: Otherwise, warm without rash. NEUROLOGIC: She is nonfocal, answers questions appropriately. PSYCHIATRIC: Affect is pleasant. RUE mid line clean Medications: Inpatient Meds: Medications reviewed. 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 Plan: Plan of Care Cont Zosyn,Zyvox ,Fluconazole f/u GNR in cultures still pending Leg Elevation Vascular input noted Local wound care F/u labs and cults Patient is being transferred to [facility] rehab today Final duration of treatment depending on culture results D/W nursing TRAV IBARRA MD Aug 06, 2020 10:55
--- NOTE | 2020-08-06 11:07 | DS ---
DATE OF DISCHARGE: CONSULTANTS: Dr. Hayden, Dr. Mirza, Dr Duenas, Dr. Linda Taylor. FINAL DIAGNOSES: 1. Cellulitis, left lower extremity. 2. Venous stasis wound, left leg. 3. Mild peripheral arterial disease. 4. Chronic venous insufficiency of the legs. 5. Bilateral femoral vein thrombosis, treated with Eliquis and she had an inferior vena cava filter placed in 2012. 6. Chronic kidney disease, stage 3. 7. Severe protein-calorie malnutrition. 8. Thalassemia trait. 9. Anemia of chronic disease. 10. Parkinson's disease. 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 HOSPITAL COURSE: The patient is an 85-year-old -[place] female with chronic venous insufficiency of the legs and bilateral femoral vein thrombosis, treated with Eliquis, who has chronic kidney disease stage 3, thalassemia trait and anemia of chronic disease, who has Parkinson's disease and a chronic left lower extremity venous stasis calf wound. She had some increasing drainage as an outpatient, was treated with oral antibiotics including Keflex and doxycycline, but did not improve and was seen in the emergency room and was sent home and was seen in the office on 08/02/2020 where she was noted to have increasing swelling in the left leg and erythema consistent with cellulitis and venous stasis calf wound noted. The patient was admitted to [facility] on 08/02/2020, was treated with Zyvox, Zosyn and fluconazole. Seen by the Infectious Disease doctor, Dr. Duenas and Dr. Linda Taylor, neurologist Dr. Mirza for Parkinson's disease and by Dr. Hayden for Vascular Surgery. She was also seen by the wound care team. She underwent bilateral lower extremity arterial Doppler and was noted to have mild peripheral arterial disease and the vascular surgeon recommended no surgical intervention and felt that she had a venous stasis wound and recommended local treatment and elevation of the leg and compression stockings. The patient continued to improve and she will be dismissed today. She received physical and occupational therapy. She has mobility and self-care deficits and she will be dismissed today to inpatient physical rehab facility. She is a do not resuscitate. She will be dismissed on Eliquis 5 mg 1 b.i.d., fluconazole 100 mg every day for another 5 days, furosemide 20 mg p.o. daily. She did receive IV Lasix 40 mg IV daily with excellent diuresis and the leg edema improved tremendously. Now, she is on furosemide 20 mg p.o. daily, Zyvox 600 mg 1 p.o. b.i.d. for 5 days, Zosyn 2.25 g IV every 6 hours for 5 days, Tylenol 500 mg every 4 hours p.r.n., Sinemet CR 50/200 mg 1 tablet t.i.d., vitamin D 1000 units every day, Folcroft 5/325 one every 6 hours p.r.n., lactobacilli one capsule b.i.d. for 10 days, Mirapex 0.25 mg p.o. t.i.d. ELI ROSALES MD DR: CHEKO/eri JOB#: [id number] / [id number]
--- NOTE | 2020-08-06 15:14 | NUR ---
Pt discharged to [facility] rehab by blaise doll.
== END 2020-08-06 15:15 | DRG 299 ==
LOC: 4 NORTH 16:43
PROVIDERS: ADMIT Internal Medicine; ATTEND Internal Medicine
DX: I82.413 Acute embolism and thrombosis of femoral vein, bilateral (principal); E43 Unspecified severe protein-calorie malnutrition; L03.116 Cellulitis of left lower limb; R44.3 Hallucinations, unspecified; I87.2 Venous insufficiency (chronic) (peripheral); I82.512 Chronic embolism and thrombosis of left femoral vein; I73.9 Peripheral vascular disease, unspecified; G20 Parkinson's disease; N18.30 Chronic kidney disease, stage 3 unspecified; Z66 Do not resuscitate; I77.1 Stricture of artery; G72.89 Other specified myopathies; D63.8 Anemia in other chronic diseases classified elsewhere; D56.3 Thalassemia minor; I87.8 Other specified disorders of veins; I89.0 Lymphedema, not elsewhere classified; E55.9 Vitamin D deficiency, unspecified; M10.9 Gout, unspecified; M19.90 Unspecified osteoarthritis, unspecified site; R53.81 Other malaise; B37.9 Candidiasis, unspecified; I12.9 Hypertensive chronic kidney disease with stage 1 through stage 4 chronic kidney disease, or unspecified chronic kidney disease; R26.2 Difficulty in walking, not elsewhere classified; Z90.49 Acquired absence of other specified parts of digestive tract; Z82.49 Family history of ischemic heart disease and other diseases of the circulatory system; Z82.3 Family history of stroke; Z79.899 Other long term (current) drug therapy; Z79.01 Long term (current) use of anticoagulants; Z87.440 Personal history of urinary (tract) infections; Z68.27 Body mass index [BMI] 27.0-27.9, adult; Z95.828 Presence of other vascular implants and grafts
CPT/HCPCS: 36415; 36569; 71045; 80048; 80053; 82728; 83540; 83550; 83735; 85025; 87071; 87075; 93005; 93925; 93970; J1940; J2020; J2543; 97110-GP; 97116-GP; 97530-GO; 97530-GP; 97535-GO; G0378

== ENCOUNTER 2021-03-14 10:43 | Inpatient (IN) | payer MEDICARE, OTHER ==
[~2021-03-14] VITALS: Ht 165.1 cm; Wt 83.4 kg
[~2021-03-14 10:43] MED LIST changes: +CARB-183 PO; -CARB1TAB2 PO; -DOXY100C2 PO; +DOXY100C3 PO; +Fluconazole PO; +LINE600T12 PO; +PIPE2.257 IV
--- NOTE | 2021-03-14 11:15 | PHYS DOC ---
Past Medical History Past Medical History: DVT, Hypertension, Other Additional Past Medical Histor: parkinsons Past Surgical History: Cholecystectomy Additional Past Surgical Histo: cataract,gout, IVC filter Smoking Status: Never Smoker Alcohol Use: None Drug Use: None General Adult EDM: Chief Complaint: WOUND CHECK HPI: HPI: Patient is a 86 year old female with history of Parkinson's, CKD, DVT on Eliquis, and chronic left lower extremity wound who presents on the instruction of the primary care office with concerns of osteomyelitis. Her left lower extremity wound has been followed by wound clinic and yesterday with she had an x-ray that showed a "5 cm segment of faint periosteal reaction along the lateral distal fibular shaft suspicious for osteomyelitis." She states this wound has been present since July. At that time she was on a course of antibiotics, but has not been on systemic antibiotics since. She denies fever/chills or other systemic complaints. Does complain of increasing pain of her nonhealing wound. Her wound has had foul-smelling drainage. Review of Systems: Review of Systems: Constitutional: Denies fever or chills. [] Eyes: Denies change in visual acuity. [] HENT: Denies nasal congestion or sore throat. [] Respiratory: Denies cough or shortness of breath. [] Cardiovascular: Denies chest pain or edema. [] GI: Denies abdominal pain, nausea, vomiting, bloody stools or diarrhea. [] : Denies dysuria. [] Musculoskeletal: Left lower extremity pain and wound. Integument: Denies rash. [] Neurologic: Denies headache, focal weakness or sensory changes. [] Endocrine: Denies polyuria or polydipsia. [] Lymphatic: Denies swollen glands. [] Psychiatric: Denies depression or anxiety. [] Heart Score: C/O Chest Pain: No Allergies: Allergies: Allergies Coded Allergies Type Severity Reaction Last Updated Verified No Known Drug Allergies 01/16/21 No Physical Exam: PE: Constitutional: Well developed, well nourished, no acute distress, non-toxic appearance. [] HENT: Normocephalic, atraumatic, bilateral external ears normal, oropharynx moist, no oral exudates, nose normal. [] Eyes: PERRLA, EOMI, conjunctiva normal, no discharge. [] Neck: Normal range of motion, no tenderness, supple, no stridor. [] Cardiovascular:Heart rate regular rhythm, no murmur [] Lungs & Thorax: Bilateral breath sounds clear to auscultation [] Abdomen: Bowel sounds normal, soft, no tenderness, no masses, no pulsatile masses. [] Skin: Warm, dry, no erythema, no rash. [] Back: No tenderness, no CVA tenderness. [] Extremities: Left lower extremity 1 x 1 cm wound. Approximately 0.5 cm deep. Granulation tissue at the base of the wound. Probed in the granulation tissue felt stable. Wound culture collected with probe. Neurologic: Alert and oriented X 3, normal motor function, normal sensory function, no focal deficits noted. [] Psychologic: Affect normal, judgement normal, mood normal. [] EKG: EKG: [] Radiology/Procedures: Radiology/Procedures: [] Course & Med Decision Making: Course & Med Decision Making Pertinent Labs and Imaging studies reviewed. (See chart for details) Patient 86-year-old female who presents with concerns for osteomyelitis. Has had a chronic wound since July of this year, had an outpatient x-ray concerning for osteomyelitic changes. She denies systemic symptoms and is well-appearing on exam. Vital signs are stable on arrival. Wound culture sent. Blood cultures, CBC, CMP, ESR, CRP ordered. We will plan on admission to her PCP, Dr. Miles with vascular and ID consults. ID is unavailable until 03/17, but routine consultation ordered. Zosyn, Linezolid, and lower extremity duplex ordered per Dr. Miles's request. Dragon Disclaimer: Ronel Disclaimer: This electronic medical record was generated, in whole or in part, using a voice recognition dictation system. Departure Departure Impression: Primary Impression: Osteomyelitis Disposition: ADMITTED INPATIENT Admitting Physician: Eli Miles Condition: STABLE Referrals: ELI MILES MD (PCP) LORRAINE JOHNSON MD Mar 14, 2021 11:15
[2021-03-14 11:37] LABS: BASO % 0 % (0-3); EOS # 0.2 x10^3/uL (0.0-0.7); EOS % 3 % (0-3); HEMATOCRIT 26.1 % (36.0-47.0); HEMOGLOBIN 8.1 g/dL (12.0-15.5); LYMPH # 1.1 x10^3/uL (1.0-4.8); LYMPH % 15 % (24-48); MEAN CORPUSCULAR HEMOGLOBIN 19 pg (25-35); MEAN CORPUSCULAR HGB CONC 31 g/dL (31-37); MEAN CORPUSCULAR VOLUME 62 fL (79-100); MONO # 0.4 x10^3/uL (0.0-1.1); MONO % 6 % (0-9); NEUT # 5.4 x10^3/uL (1.8-7.7); NEUT % 76 % (31-73); PLATELET COUNT 256 x10^3/uL (140-400); RED BLOOD COUNT 4.18 x10^6/uL (3.50-5.40); RED CELL DISTRIBUTION WIDTH 17.8 % (11.5-14.5); WHITE BLOOD COUNT 7.1 x10^3/uL (4.0-11.0)
[2021-03-14 11:43] LABS: CALCIUM 8.8 mg/dL (8.5-10.1); CREATININE 1.6 mg/dL (0.6-1.0); POTASSIUM 4.1 mmol/L (3.5-5.1)
[2021-03-14] MEDS ORDERED: VANCOMYCIN 1.5 GM in IV NORMAL SALINE 500ML BAG 500 ML IV ONE (11:45)
[2021-03-14] MEDS ORDERED: cefTRIAXone IV Push 1 GM VIAL. IVP ONE (11:45)
[2021-03-14 11:48] LABS: ALBUMIN 3.1 g/dL (3.4-5.0); ALBUMIN/GLOBULIN RATIO 0.7 (1.0-1.7); TOTAL BILIRUBIN 0.5 mg/dL (0.2-1.0); TOTAL PROTEIN 7.6 g/dL (6.4-8.2)
[2021-03-14] MEDS ORDERED: PIPERACILLIN/TAZOBACTAM 4.5 GM in IV NORMAL SALINE 100ML 100 ML IV ONE (12:00)
[2021-03-14 12:50] LABS: ANISOCYTOSIS SLIGHT; HYPOCHROMIA MARKED; MICROCYTOSIS MARKED; PLT ESTIMATE ADEQUATE (ADEQUATE)
[2021-03-14] MEDS: CARBIDOPA/LEVODOPA CR 25/100MG TABLET.SA. PO SCH ×2 (14:00→20:39)
--- NOTE | 2021-03-14 15:55 | PDOC ---
Provider Note Date of Service: DATE: 03/14/21 TIME: 15:54 Provider Note history and physical dictated # [id number] Justifications for Admission Other Justification ELI ROSALES MD Mar 14, 2021 15:55
[2021-03-14] MEDS ORDERED: MAGNESIUM HYDROXIDE 2,400 MG/30 ML ORAL.SUSP. PO PRN (16:00)
[2021-03-14] MEDS ORDERED: PIP/TAZO PER PHARMACY MC PRN (16:15)
--- NOTE | 2021-03-14 16:27 | RAD ---
XR CHEST 1V History: Shortness of breath Comparison: August 02, 2020 Findings: No consolidation or pleural effusion. Normal heart size. No pneumothorax. Surgical clips right upper quadrant. IVC filter noted. Glenohumeral DJD. Impression: 1. No acute cardiopulmonary process. Electronically signed by: Darvin Guajardo DO (03/14/2021 4:25 PM) [id number]
--- NOTE | 2021-03-14 16:30 | HP ---
DATE OF SERVICE: 03/14/2021 ADMIT DATE: 03/14/2021 HISTORY OF PRESENT ILLNESS: The patient is an 86-year-old white female who has a history of a chronic left calf wound, chronic kidney disease stage 3, chronic venous insufficiency of the legs, Parkinson's disease, anemia of chronic disease, history of bilateral deep vein thrombosis of the legs on chronicEliquis, who [facility] and had an x-ray of the left fibula, which was done earlier today and was suspicious for osteomyelitis and distal section of the left fibula was measured about 5 cm. The wound actually is above this area that was described. It looks like she had a debridement of this left leg wound at the [facility]. The patient actually seen in the office earlier this week and noted some pain in her left calf wound and also noted some foul smell from the wound and was started on Keflex 500 mg t.i.d. for a 10-day course of treatment earlier this week. The patient was sent to the Emergency Room today because of the abnormality of the fibular x-ray suggesting osteomyelitis and will be admitted to the hospital for further evaluation and treatment. In the Emergency Room, white count was normal at 7.1. She denied any fevers. Her BUN was 32 with creatinine 1.6 with an, estimated GFR of 37. She was seen by the daylight driller who ordered an MRI of the left lower extremity to rule out osteomyelitis and unfortunately I am told by the ER physician that the MRI machine is not going to be working until tomorrow. The patient did have a sedimentation rate of 45. I do not see C-reactive protein. The patient does have chronic venous insufficiency of the lower extremities, chronic kidney disease stage 3 as mentioned and was started on Zyvox and Zosyn in the Emergency Room, did receive a single dose of vancomycin and Rocephin prior to that. She will be admitted for further evaluation of her left leg wound and suspected osteomyelitis. ALLERGIES AND INTOLERANCES: None. MEDICATIONS: Sinemet 50/200 mg extended release 1 tablet t.i.d. She was on Keflex 500 mg t.i.d., Eliquis 5 mg b.i.d., ferrous sulfate 325 mg every day, furosemide 20 mg every day, Mirapex 0.5 mg t.i.d., vitamin D at 1000 units every day. PAST HISTORY: Significant for left calf wound, chronic venous insufficiency of the legs,, bilateral lower extremity deep vein thrombosis, on chronic Eliquis; Parkinson's disease. She had a deep vein thrombosis of the left superficial vein in the past. She had a laparoscopic cholecystectomy in 2016, chronic kidney disease stage 3, anemia of chronic disease, thalassemia minor, chronic gout. She had a deep vein thrombosis, left lower extremity in 2012 and IVC filter placed at that time. SOCIAL HISTORY: She does not drink alcohol nor does she smoke cigarettes. She uses a walker for short distances. FAMILY HISTORY: Not contributory. REVIEW OF SYSTEMS: GENERAL: She denies any fever, chills or sweats. CARDIAC: She had a brief episode of chest pain that lasted a few minutes, a couple days ago, but none since. PULMONARY: No cough or shortness of breath. GASTROINTESTINAL: No constipation. ENDOCRINE: No diabetes mellitus. SKIN: She has a left calf wound and the rest of the systems reviewed and are negative except as stated in history of present illness. PHYSICAL EXAMINATION: VITAL SIGNS: Temperature 98.3 degrees, heart rate is regular at 67, respiratory rate 16, blood pressure 136/65, oxygen saturation 100% on room air. HEENT: Eyes, gaze is conjugate. Extraocular muscles intact. Mouth: Tongue is midline without yeast. NECK: No cervical lymphadenopathy or thyroid enlargement. CARDIAC: S1, S2. There is no S3 or murmur. LUNGS: Clear. ABDOMEN: Soft with no hepatosplenomegaly, masses or tenderness. EXTREMITIES: She has 1+ edema in the right leg and 1-2+ edema to the left lower extremity. SKIN: Examination of her skin shows that she has an open wound, which almost looks like a square with some minimal blood expressed from it. No pus was seen. This calf wound is right over the distal area of the fibula, which she can feel below the wound. No pus was expressed. Examination of the left foot shows dorsalis pedis pulses 2+. SKIN: No rashes. NEUROLOGIC: Coherent. No facial weakness, she has got 5/5 bilateral hand desktop support technician and biceps strength. Able to dorsi and plantarflex her feet, bend her knees and raise her legs up in the air symmetrically. SKIN: No rashes. ASSESSMENT: 1. Suspected acute osteomyelitis involving the left fibula. 2. Left calf wound which overlies the distal left fibula. 3. Chronic kidney disease stage 3. 4. Chronic venous insufficiency of the legs. 5. Parkinson's disease. 6. Anemia of chronic disease. 7. 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 As an addendum it should be noted that she had arterial Doppler of her legs done in July of this year and there was mention of possible proximal stenosis of the left lower extremity. However, she has excellent dorsalis pedis pulse today. PLAN: At this time is to admit her to the hospital. No pus to culture from the wound. We will get C-reactive protein and get an MRI of the left calf. She has been seen by Dr. Jin for Podiatry in consultation. Consult the vascular surgeon for wound care and also to look at the arterial circulation to that leg, although it looks good today and will also consult Dr. Bryan Taylor for Infectious Disease. Start her on Zyvox and Zosyn and avoid vancomycin due to her renal insufficiency. Get an MRI of the left calf, hopefully tomorrow. Continue with her home medications including Eliquis to help prevent a deep vein thrombosis, furosemide and leg wraps and leg elevation for the chronic venous insufficiency of the legs. She is anemic and has anemia of chronic disease and will continue with the ferrous sulfate. I think she gets Procrit injections once a month if not mistaking. We will also continue with the Sinemet for Parkinson's disease as well as the Mirapex. Apparently the Infectious Disease corporate travel consultant is out of town and will not be able to see her until Wednesday. CHEKO/ROZ DR: Casa TID: [id number]
--- NOTE | 2021-03-14 16:31 | PDOC2 ---
CONSULT Date of Service Date of Service DATE: 03/14/21 TIME: 16:18 Reason for Consult Reason for Consult: Left leg wound Referring Physician Referring Physician: Dr. Miles Identification/Chief Complaint Chief Complaint Left leg wound Source Source: Chart review, Patient History of Present Illness Reason for Visit: This is a very pleasant 85-year-old female who has a history of chronic venous insufficiency with significant lower extremity swelling who presents the emergency room with a left lateral leg wound. Patient has had a wound and been treated with local wound care since July. Patient states she does not wear any compression stockings or any type of compression and performs minimal leg elevation. Patient states she presented to the wound care clinic at the request of her home nurse due to some increase in drainage from the wound. According to chart review when she was seen in the wound care center she had an x-ray that showed a "5 cm segment of faint periosteal reaction along the lateral distal fibular shaft suspicious for osteomyelitis." MRI is pending. An arterial ultrasound was ordered, notes states that the patient refused. Patient has normal pulses bilaterally and there is no significant peripheral arterial disease noted on the arterial ultrasound which was performed in July. Patient denies any fever or chills. Patient denies any nausea vomiting or diarrhea. Past Medical History Cardiovascular: HTN, Other CENTRAL NERVOUS SYSTEM: Other GI: GI bleed Heme/Onc: Anemia NOS Musculoskeletal: Osteoarthritis Rheumatologic: Gout Renal/: Chronic renal insuff, UTI Endocrine: Other Past Surgical History Past Surgical History: Cholecystectomy, Cataract Removal, Other Family History Family History: Hypertension Social History No ALCOHOL: none Current Problem List Problem List Problems Medical Problems: (1) Osteomyelitis Status: Acute Current Medications Current Medications Current Medications Vancomycin HCl 1.5 gm/Sodium Chloride 500 ml @ 250 mls/hr 1X ONCE IV ; Start 03/14/21 at 11:45; Stop 03/14/21 at 11:35; Status DC Ceftriaxone Sodium (Rocephin) 1 gm 1X ONCE IVP Last administered on 03/14/21at 11:30; Start 03/14/21 at 11:45; Stop 03/14/21 at 11:35; Status DC Piperacillin Sod/ Tazobactam Sod 4.5 gm/Sodium Chloride 100 ml @ 200 mls/hr 1X ONCE IV Last administered on 03/14/21at 11:52; Start 03/14/21 at 12:00; Stop 03/14/21 at 12:29; Status DC Linezolid/Dextrose 300 ml @ 300 mls/hr Q12HR IV Last administered on 03/14/21at 13:26; Start 03/14/21 at 13:00 Piperacillin Sod/ Tazobactam Sod 3.375 gm/Sodium Chloride 50 ml @ 100 mls/hr Q8HRS IV ; Start 03/14/21 at 20:00; Status UNV Acetaminophen (Tylenol) 650 mg PRN Q6HRS PRN PO MILD PAIN / TEMP > 100.3'F; Start 03/14/21 at 16:00 Carbidopa/Levodopa (Sinemet Cr) 2 tab.sa TID PO ; Start 03/14/21 at 14:00 Apixaban (Eliquis) 2.5 mg BID PO ; Start 03/14/21 at 21:00 Ferrous Sulfate (Feosol) 325 mg DAILYWBKFT PO ; Start 03/15/21 at 08:00 Furosemide (Lasix) 20 mg DAILY PO ; Start 03/15/21 at 09:00 Vitamin D (Vitamin D3) 1,000 unit DAILY PO ; Start 03/15/21 at 09:00; Status UNV Pramipexole Dihydrochloride (miraPEX) 0.5 mg [id number] PO ; Start 03/14/21 at 21:00; Status UNV Magnesium Hydroxide (Milk Of Magnesia) 2,400 mg PRN DAILY PRN PO CONSTIPATION; Start 03/14/21 at 16:00; Status UNV Piperacillin Sod/ Tazobactam Sod (Zosyn Per Pharmacy) 1 each PRN DAILY PRN MC SEE COMMENTS; Start 03/14/21 at 16:15; Status UNV Active Scripts Active Furosemide 20 Mg Tablet 20 Mg PO DAILY Eliquis (Apixaban) 5 Mg Tablet 5 Mg PO BID [Fluconazole] 100 MG Tablet 100 Mg PO DAILY 5 Days Zyvox (Linezolid) 600 Mg Tablet 600 Mg PO BID 5 Days Zosyn 2.25 Gm Pre-Mix Bag (Zwgrsktiiqlq-Jwua-Fqxynplj,Iso) 2.25 Gm/50 Ml Froz.piggy 2.25 Gm IV Q6HRS 5 Days Hydrocodone-Acetamin 5-325 mg (Hydrocodone/Acetaminophen) 1 Each Tablet 1 Each PO Q6HRS PRN Culturelle (Lactobacillus Rhamnosus Gg) 1 Each Cap.sprink 1 Cap PO BID 10 Days Acetaminophen 500 Mg Tablet 500 Mg PO PRN Q4HRS PRN Reported Mirapex (Pramipexole Di-Hcl) 0.25 Mg Tablet 0.5 Mg PO TID Vitamin D3 (Cholecalciferol (Vitamin D3)) 1,000 Unit Tablet 1,000 Unit PO DAILY Sinemet Cr 50-200 Tablet (Carbidopa/Levodopa) 1 Each Tablet.er 1 Tab PO TID Allergies Allergies: Coded Allergies: No Known Drug Allergies (Unverified , 01/16/21) ROS Review of System Constitutional: Denies fever or chills Eyes: Denies any visual disturbances HENT: Denies nasal congestion or sore throat Respiratory: Denies cough or shortness of breath Cardiovascular: Denies any palpitations or chest pain GI: Denies abdominal pain, nausea, vomiting, bloody stools or diarrhea : Denies dysuria or hematuria Musculoskeletal: As per HPI Integument: As per HPI Neurologic: No gross deficits Endocrine: Denies excessive thirst Psychiatric: Physical Exam Physical Exam General: Alert and oriented X3 HEENT: Atraumatic, Pupils equal, round. Mucous membranes moist. Cardiac: Heart rate regular. Normal carotid pulses. Lungs: CTA, non-labored respirations. Abdomen: Soft, nontender, nondistended, no palpable masses. Extremities: 2+ palpable radial, femoral and dorsalis pedis pulses. Musculoskeletal: Gait steady. Moving all extremities. Skin: Bilateral lower extremities are warm, dry. Patient has significant swelling and erythema in her left lower extremity. She has a small open wound on the lateral aspect of her mid calf. The wound is undermined proximally. The wound bed is clean. There is no drainage. Neurological: Motor and sensation intact. Psychiatry: No depression or anxiety. Vitals VITALS Vital Signs Date Time Temp Pulse Resp B/P (MAP) Pulse Ox O2 Delivery O2 Flow Rate FiO2 03/14/21 11:10 98.3 67 16 136/65 (88) 100 Room Air 98.3 Labs Labs Laboratory Tests Test 03/14/21 11:10 White Blood Count 7.1 x10^3/uL (4.0-11.0) Red Blood Count 4.18 x10^6/uL (3.50-5.40) Hemoglobin 8.1 g/dL (12.0-15.5) Hematocrit 26.1 % (36.0-47.0) Mean Corpuscular Volume 62 fL (79-100) Mean Corpuscular Hemoglobin 19 pg (25-35) Mean Corpuscular Hemoglobin Concent 31 g/dL (31-37) Red Cell Distribution Width 17.8 % (11.5-14.5) Platelet Count 256 x10^3/uL (140-400) Neutrophils (%) (Auto) 76 % (31-73) Lymphocytes (%) (Auto) 15 % (24-48) Monocytes (%) (Auto) 6 % (0-9) Eosinophils (%) (Auto) 3 % (0-3) Basophils (%) (Auto) 0 % (0-3) Neutrophils # (Auto) 5.4 x10^3/uL (1.8-7.7) Lymphocytes # (Auto) 1.1 x10^3/uL (1.0-4.8) Monocytes # (Auto) 0.4 x10^3/uL (0.0-1.1) Eosinophils # (Auto) 0.2 x10^3/uL (0.0-0.7) Basophils # (Auto) 0.0 x10^3/uL (0.0-0.2) Platelet Estimate Adequate (ADEQUATE) Hypochromasia Marked Anisocytosis Slight Microcytosis Marked Erythrocyte Sedimentation Rate 45 (0-25) Sodium Level 140 mmol/L (136-145) Potassium Level 4.1 mmol/L (3.5-5.1) Chloride Level 103 mmol/L (98-107) Carbon Dioxide Level 30 mmol/L (21-32) Anion Gap 7 (6-14) Blood Urea Nitrogen 33 mg/dL (7-20) Creatinine 1.6 mg/dL (0.6-1.0) Estimated GFR (Cockcroft-Gault) 37.0 BUN/Creatinine Ratio 21 (6-20) Glucose Level 82 mg/dL (70-99) Calcium Level 8.8 mg/dL (8.5-10.1) Total Bilirubin 0.5 mg/dL (0.2-1.0) Aspartate Amino Transf (AST/SGOT) 12 U/L (15-37) Alanine Aminotransferase (ALT/SGPT) 7 U/L (14-59) Alkaline Phosphatase 58 U/L (46-116) C-Reactive Protein, Quantitative 70.0 mg/L (0-3.3) Total Protein 7.6 g/dL (6.4-8.2) Albumin 3.1 g/dL (3.4-5.0) Albumin/Globulin Ratio 0.7 (1.0-1.7) Laboratory Tests Test 03/14/21 11:10 White Blood Count 7.1 x10^3/uL (4.0-11.0) Red Blood Count 4.18 x10^6/uL (3.50-5.40) Hemoglobin 8.1 g/dL (12.0-15.5) Hematocrit 26.1 % (36.0-47.0) Mean Corpuscular Volume 62 fL (79-100) Mean Corpuscular Hemoglobin 19 pg (25-35) Mean Corpuscular Hemoglobin Concent 31 g/dL (31-37) Red Cell Distribution Width 17.8 % (11.5-14.5) Platelet Count 256 x10^3/uL (140-400) Neutrophils (%) (Auto) 76 % (31-73) Lymphocytes (%) (Auto) 15 % (24-48) Monocytes (%) (Auto) 6 % (0-9) Eosinophils (%) (Auto) 3 % (0-3) Basophils (%) (Auto) 0 % (0-3) Neutrophils # (Auto) 5.4 x10^3/uL (1.8-7.7) Lymphocytes # (Auto) 1.1 x10^3/uL (1.0-4.8) Monocytes # (Auto) 0.4 x10^3/uL (0.0-1.1) Eosinophils # (Auto) 0.2 x10^3/uL (0.0-0.7) Basophils # (Auto) 0.0 x10^3/uL (0.0-0.2) Platelet Estimate Adequate (ADEQUATE) Hypochromasia Marked Anisocytosis Slight Microcytosis Marked Erythrocyte Sedimentation Rate 45 (0-25) Sodium Level 140 mmol/L (136-145) Potassium Level 4.1 mmol/L (3.5-5.1) Chloride Level 103 mmol/L (98-107) Carbon Dioxide Level 30 mmol/L (21-32) Anion Gap 7 (6-14) Blood Urea Nitrogen 33 mg/dL (7-20) Creatinine 1.6 mg/dL (0.6-1.0) Estimated GFR (Cockcroft-Gault) 37.0 BUN/Creatinine Ratio 21 (6-20) Glucose Level 82 mg/dL (70-99) Calcium Level 8.8 mg/dL (8.5-10.1) Total Bilirubin 0.5 mg/dL (0.2-1.0) Aspartate Amino Transf (AST/SGOT) 12 U/L (15-37) Alanine Aminotransferase (ALT/SGPT) 7 U/L (14-59) Alkaline Phosphatase 58 U/L (46-116) C-Reactive Protein, Quantitative 70.0 mg/L (0-3.3) Total Protein 7.6 g/dL (6.4-8.2) Albumin 3.1 g/dL (3.4-5.0) Albumin/Globulin Ratio 0.7 (1.0-1.7) Assessment/Plan Assessment/Plan 86-year-old female with chronic venous insufficiency and non-healing left leg ulceration. Recommend continued local wound care and compression therapy. Recommending leg elevation. MRI is pending we will make additional recommendations pending the results of the MRI with regards to any surgical de bridement. It is a difficult situation if she truly has osteomyelitis in her fibular shaft this may require either a palliative treatment with local wound care and antibiotics or a more proximal amputation. She has adequate arterial flow to heal her wounds. I discussed history and physical examination with Dr. Arredondo she will see the patient and make additional recommendations as needed. Attending attestation: I independently saw and evaluated the patient and agree with the findings of Qian Hernandez APRN. She is an 86 year old female with a nonhealing wound to left lateral leg which has been noted to have potential involvement of the left fibula. She has palpable L DP/PT and femoral pulses. There is a punctate wound to left lateral leg and this probes deep. There is minimal drainage and no surrounding erythema or warmth. There is an MRI pending. We will plan to follow up the results of this to determine the best plan of care for her. DO LISA Galvez JULIE D APRN Mar 14, 2021 16:31 TASH ARREDONDO DO Mar 14, 2021 21:10
--- NOTE | 2021-03-14 17:10 | EKG ---
[facility] [address] [place] [address] Test Date: 2021-03-14 Test Time: 16:44:23 Pat Name: JACKIE GROVES Department: Room: [facility] Gender: F [employer]: : 1935 Requested By: ELI ROSALES Order Number: [id number] Reading MD: Cecilio Chavez MD Measurements Intervals [place] Rate: 69 P: 26 MI: 148 QRS: -21 QRSD: 130 T: 121 QT: 438 QTc: 471 Interpretive Statements SR LBBB Electronically Signed On 03-17-2021 11:11:18 CDT by Cecilio Chavez MD
--- NOTE | 2021-03-14 17:13 | PDOC2 ---
CONSULT Date of Consult Date of Consult DATE: 03/14/21 TIME: 16:47 Reason for Consult Reason for Consult: Left chronic fibular wound History of Present Illness Reason for Visit: Patient was consulted on this chronic wound localized to the lateral distal fibula for at least a few months. Patient and family are uncertain how the wound started out. The wound has been cared by the wound care department with a local dressing change. Recent x-ray of the leg remarked possible osteomyelitis to the fibula. In addition, in the last few weeks, the wound has become malodorous, and draining with worsening redness and swelling to left lower extremity. Patient also relates diminished appetite, weight loss. Patient relates pain to the lateral fibula however is unable to rate the pain on a 1-10 scale. The pain is throbbing and sharp in nature. It is worse with pressure, activity. Socially, patient was discharged from hospice and now home living with family. They do have home physical therapy. Upon ED admission, patient was found without a leukocytosis with vital signs are stable. Broad-spectrum IV antibiotics were initiated. Sepsis work-up consisted of blood culture, deep tissue wound culture, ESR and CRP, CBC. Past Medical History Cardiovascular: HTN, Other CENTRAL NERVOUS SYSTEM: Other GI: GI bleed Heme/Onc: Anemia NOS Musculoskeletal: Osteoarthritis Rheumatologic: Gout Renal/: Chronic renal insuff, UTI Endocrine: Other Past Surgical History Past Surgical History: Cholecystectomy, Cataract Removal, Other Family History Family History: Hypertension Social History No ALCOHOL: none Current Problem List Problem List Problems Medical Problems: (1) Osteomyelitis Status: Acute Current Medications Current Medications Current Medications Vancomycin HCl 1.5 gm/Sodium Chloride 500 ml @ 250 mls/hr 1X ONCE IV ; Start 03/14/21 at 11:45; Stop 03/14/21 at 11:35; Status DC Ceftriaxone Sodium (Rocephin) 1 gm 1X ONCE IVP Last administered on 03/14/21at 11:30; Start 03/14/21 at 11:45; Stop 03/14/21 at 11:35; Status DC Piperacillin Sod/ Tazobactam Sod 4.5 gm/Sodium Chloride 100 ml @ 200 mls/hr 1X ONCE IV Last administered on 03/14/21at 11:52; Start 03/14/21 at 12:00; Stop 03/14/21 at 12:29; Status DC Linezolid/Dextrose 300 ml @ 300 mls/hr Q12HR IV Last administered on 03/14/21at 13:26; Start 03/14/21 at 13:00 Piperacillin Sod/ Tazobactam Sod 3.375 gm/Sodium Chloride 50 ml @ 100 mls/hr Q6HRS IV ; Start 03/14/21 at 18:00 Acetaminophen (Tylenol) 650 mg PRN Q6HRS PRN PO MILD PAIN / TEMP > 100.3'F; Start 03/14/21 at 16:00 Carbidopa/Levodopa (Sinemet Cr) 2 tab.sa TID PO ; Start 03/14/21 at 14:00 Apixaban (Eliquis) 2.5 mg BID PO ; Start 03/14/21 at 21:00 Ferrous Sulfate (Feosol) 325 mg DAILYWBKFT PO ; Start 03/15/21 at 08:00 Furosemide (Lasix) 20 mg DAILY PO ; Start 03/15/21 at 09:00 Vitamin D (Vitamin D3) 1,000 unit DAILY PO ; Start 03/15/21 at 09:00 Pramipexole Dihydrochloride (miraPEX) 0.5 mg [id number] PO ; Start 03/14/21 at 16:30 Magnesium Hydroxide (Milk Of Magnesia) 2,400 mg PRN DAILY PRN PO CONSTIPATION; Start 03/14/21 at 16:00 Piperacillin Sod/ Tazobactam Sod (Zosyn Per Pharmacy) 1 each PRN DAILY PRN MC SEE COMMENTS; Start 03/14/21 at 16:15 Active Scripts Active Furosemide 20 Mg Tablet 20 Mg PO DAILY Eliquis (Apixaban) 5 Mg Tablet 5 Mg PO BID [Fluconazole] 100 MG Tablet 100 Mg PO DAILY 5 Days Zyvox (Linezolid) 600 Mg Tablet 600 Mg PO BID 5 Days Zosyn 2.25 Gm Pre-Mix Bag (Uuixzkxpboza-Mipd-Hqbvdmyk,Iso) 2.25 Gm/50 Ml Froz.piggy 2.25 Gm IV Q6HRS 5 Days Hydrocodone-Acetamin 5-325 mg (Hydrocodone/Acetaminophen) 1 Each Tablet 1 Each PO Q6HRS PRN Culturelle (Lactobacillus Rhamnosus Gg) 1 Each Cap.sprink 1 Cap PO BID 10 Days Acetaminophen 500 Mg Tablet 500 Mg PO PRN Q4HRS PRN Reported Mirapex (Pramipexole Di-Hcl) 0.25 Mg Tablet 0.5 Mg PO TID Vitamin D3 (Cholecalciferol (Vitamin D3)) 1,000 Unit Tablet 1,000 Unit PO DAILY Sinemet Cr 50-200 Tablet (Carbidopa/Levodopa) 1 Each Tablet.er 1 Tab PO TID Allergies Allergies: Coded Allergies: No Known Drug Allergies (Unverified , 01/16/21) ROS Review of System CONSTITUTIONAL: No fever. No chills. No dizziness. No weakness. CARDIOVASCULAR: No chest pain. No palpitations. No lower extremity edema. RESPIRATORY: No shortness of breath, cough, pain with respiration. No hemoptysis. No dyspnea. GASTROINTESTINAL: Normal appetite. No nausea, vomiting, diarrhea. GENITOURINARY: No frequency, urgency, nocturia. No hematuria or dysuria. MUSCULOSKELETAL: No arthralgias or myalgias. INTEGUMENTARY: Refer to HPI NEUROLOGIC: No numbness or tingling of the extremities. No weakness. PSYCHIATRIC: No confusion. ENDOCRINE: No fatigue. No weakness. HEMATOLOGICAL: No bleeding. No petechiae. No bruising. ALLERGIES: No asthma. No urticaria Physical Exam Physical Exam General: AOx3, pleasant without distress Dermatology: -Full-thickness ulcer to the lateral distal fibula shaft, measures approximately 3 x 4 cm. The wound base is granular with minimal undermining without proximal tracking, purulence discharge or fluctuance. Periwound is severely erythematous and edematous involving the entire tib-fib almost. Neurology: -Hypersensitivity to the lateral fibula -Diminished to light touch sensation to digits 1 through 5 Vascular: -DP PT palpable -Foot is warm to touch -CFT less than 3 seconds Musculoskeletal: -TTP at distal fibula where the wound is -Calf is soft however tender -Able to move digits and ankle -Passive ankle and knee range of motion was smooth without crepitus or pain Vitals VITALS Vital Signs Date Time Temp Pulse Resp B/P (MAP) Pulse Ox O2 Delivery O2 Flow Rate FiO2 03/14/21 11:10 98.3 67 16 136/65 (88) 100 Room Air 98.3 Labs Labs Laboratory Tests Test 03/14/21 11:10 White Blood Count 7.1 x10^3/uL (4.0-11.0) Red Blood Count 4.18 x10^6/uL (3.50-5.40) Hemoglobin 8.1 g/dL (12.0-15.5) Hematocrit 26.1 % (36.0-47.0) Mean Corpuscular Volume 62 fL (79-100) Mean Corpuscular Hemoglobin 19 pg (25-35) Mean Corpuscular Hemoglobin Concent 31 g/dL (31-37) Red Cell Distribution Width 17.8 % (11.5-14.5) Platelet Count 256 x10^3/uL (140-400) Neutrophils (%) (Auto) 76 % (31-73) Lymphocytes (%) (Auto) 15 % (24-48) Monocytes (%) (Auto) 6 % (0-9) Eosinophils (%) (Auto) 3 % (0-3) Basophils (%) (Auto) 0 % (0-3) Neutrophils # (Auto) 5.4 x10^3/uL (1.8-7.7) Lymphocytes # (Auto) 1.1 x10^3/uL (1.0-4.8) Monocytes # (Auto) 0.4 x10^3/uL (0.0-1.1) Eosinophils # (Auto) 0.2 x10^3/uL (0.0-0.7) Basophils # (Auto) 0.0 x10^3/uL (0.0-0.2) Platelet Estimate Adequate (ADEQUATE) Hypochromasia Marked Anisocytosis Slight Microcytosis Marked Erythrocyte Sedimentation Rate 45 (0-25) Sodium Level 140 mmol/L (136-145) Potassium Level 4.1 mmol/L (3.5-5.1) Chloride Level 103 mmol/L (98-107) Carbon Dioxide Level 30 mmol/L (21-32) Anion Gap 7 (6-14) Blood Urea Nitrogen 33 mg/dL (7-20) Creatinine 1.6 mg/dL (0.6-1.0) Estimated GFR (Cockcroft-Gault) 37.0 BUN/Creatinine Ratio 21 (6-20) Glucose Level 82 mg/dL (70-99) Calcium Level 8.8 mg/dL (8.5-10.1) Total Bilirubin 0.5 mg/dL (0.2-1.0) Aspartate Amino Transf (AST/SGOT) 12 U/L (15-37) Alanine Aminotransferase (ALT/SGPT) 7 U/L (14-59) Alkaline Phosphatase 58 U/L (46-116) C-Reactive Protein, Quantitative 70.0 mg/L (0-3.3) Total Protein 7.6 g/dL (6.4-8.2) Albumin 3.1 g/dL (3.4-5.0) Albumin/Globulin Ratio 0.7 (1.0-1.7) Laboratory Tests Test 03/14/21 11:10 White Blood Count 7.1 x10^3/uL (4.0-11.0) Red Blood Count 4.18 x10^6/uL (3.50-5.40) Hemoglobin 8.1 g/dL (12.0-15.5) Hematocrit 26.1 % (36.0-47.0) Mean Corpuscular Volume 62 fL (79-100) Mean Corpuscular Hemoglobin 19 pg (25-35) Mean Corpuscular Hemoglobin Concent 31 g/dL (31-37) Red Cell Distribution Width 17.8 % (11.5-14.5) Platelet Count 256 x10^3/uL (140-400) Neutrophils (%) (Auto) 76 % (31-73) Lymphocytes (%) (Auto) 15 % (24-48) Monocytes (%) (Auto) 6 % (0-9) Eosinophils (%) (Auto) 3 % (0-3) Basophils (%) (Auto) 0 % (0-3) Neutrophils # (Auto) 5.4 x10^3/uL (1.8-7.7) Lymphocytes # (Auto) 1.1 x10^3/uL (1.0-4.8) Monocytes # (Auto) 0.4 x10^3/uL (0.0-1.1) Eosinophils # (Auto) 0.2 x10^3/uL (0.0-0.7) Basophils # (Auto) 0.0 x10^3/uL (0.0-0.2) Platelet Estimate Adequate (ADEQUATE) Hypochromasia Marked Anisocytosis Slight Microcytosis Marked Erythrocyte Sedimentation Rate 45 (0-25) Sodium Level 140 mmol/L (136-145) Potassium Level 4.1 mmol/L (3.5-5.1) Chloride Level 103 mmol/L (98-107) Carbon Dioxide Level 30 mmol/L (21-32) Anion Gap 7 (6-14) Blood Urea Nitrogen 33 mg/dL (7-20) Creatinine 1.6 mg/dL (0.6-1.0) Estimated GFR (Cockcroft-Gault) 37.0 BUN/Creatinine Ratio 21 (6-20) Glucose Level 82 mg/dL (70-99) Calcium Level 8.8 mg/dL (8.5-10.1) Total Bilirubin 0.5 mg/dL (0.2-1.0) Aspartate Amino Transf (AST/SGOT) 12 U/L (15-37) Alanine Aminotransferase (ALT/SGPT) 7 U/L (14-59) Alkaline Phosphatase 58 U/L (46-116) C-Reactive Protein, Quantitative 70.0 mg/L (0-3.3) Total Protein 7.6 g/dL (6.4-8.2) Albumin 3.1 g/dL (3.4-5.0) Albumin/Globulin Ratio 0.7 (1.0-1.7) Assessment/Plan Assessment/Plan Cellulitis, possible osteomyelitis in the setting of chronic open wound to the lateral fibular shaft -I commended deep tissue culture for anaerobes, aerobes, Gram stain and sensitivity -I recommended a blood culture x2 -I recommended trend WBC daily -Broad-spectrum IV antibiotics, will de-escalate based on wound culture -Dressing change: Betadine wet-to-dry gauze to the lateral wound, secured with Kerlix and tape -Avoid weightbearing or pressure to the lateral left lower extremity -DP/PT: Avoid pressure to left lower extremity, okay for upper body mobility -DVT prophylaxis: Per internal medicine -Pending MRI to further evaluate structures involved in preparation for surgical plans -Given patient does not meet SIRS criteria, surgical intervention is not urgent at this time. Dispo: I will evaluate patient on Wednesday and discuss MRI findings and possible surgery plan with fibular bone resection, I&D, wound VAC therapy. The goal of the primary stage of surgery is source control. HEATHER KOCH DPM Mar 14, 2021 17:13
[2021-03-14] MEDS: PRAMIPEXOLE 0.25 MG TABLET. PO SCH ×2 (17:27→20:39)
[2021-03-14] MEDS: PIPERACILLIN/TAZOBACTAM 3.375 GM in IV NORMAL SALINE 50ML 50 ML IV SCH ×2 (17:29→23:43)
[2021-03-14 18:23] VITALS: BP 145/75
[2021-03-14 19:00] VITALS: BP 101/57
[2021-03-14] MEDS: APIXABAN 2.5 MG TABLET. PO SCH (20:39)
[2021-03-14 23:00] VITALS: BP 116/55
[2021-03-15 03:00] VITALS: BP 133/78
[2021-03-15] MEDS: PIPERACILLIN/TAZOBACTAM 3.375 GM in IV NORMAL SALINE 50ML 50 ML IV SCH (05:06)
[2021-03-15 05:21] LABS: BASO % 1 % (0-3); EOS # 0.5 x10^3/uL (0.0-0.7); EOS % 11 % (0-3); HEMATOCRIT 24.9 % (36.0-47.0); HEMOGLOBIN 7.7 g/dL (12.0-15.5); LYMPH # 1.5 x10^3/uL (1.0-4.8); LYMPH % 29 % (24-48); MEAN CORPUSCULAR HEMOGLOBIN 19 pg (25-35); MEAN CORPUSCULAR HGB CONC 31 g/dL (31-37); MEAN CORPUSCULAR VOLUME 63 fL (79-100); MONO # 0.4 x10^3/uL (0.0-1.1); MONO % 7 % (0-9); NEUT # 2.8 x10^3/uL (1.8-7.7); NEUT % 53 % (31-73); PLATELET COUNT 229 x10^3/uL (140-400); RED BLOOD COUNT 3.96 x10^6/uL (3.50-5.40); RED CELL DISTRIBUTION WIDTH 17.6 % (11.5-14.5); WHITE BLOOD COUNT 5.2 x10^3/uL (4.0-11.0)
[2021-03-15 05:32] LABS: CALCIUM 8.5 mg/dL (8.5-10.1); CREATININE 1.8 mg/dL (0.6-1.0); GFR 32.3
[2021-03-15 07:00] VITALS: BP 119/47
[2021-03-15] MEDS: PRAMIPEXOLE 0.25 MG TABLET. PO SCH ×3 (08:29→21:32)
[2021-03-15] MEDS: FUROSEMIDE 20 MG TABLET PO SCH (08:29)
[2021-03-15] MEDS: CHOLECALCIFEROL (VITAMIN D3) 1,000 UNIT TABLET PO SCH (08:29)
[2021-03-15] MEDS: FERROUS SULFATE 325 MG TABLET. PO SCH (08:29)
[2021-03-15] MEDS: APIXABAN 2.5 MG TABLET. PO SCH ×2 (08:32→21:32)
[2021-03-15] MEDS: CARBIDOPA/LEVODOPA CR 25/100MG TABLET.SA. PO SCH ×3 (08:32→21:32)
[2021-03-15 11:00] VITALS: BP 133/83
--- NOTE | 2021-03-15 11:01 | PDOC ---
PROGRESS NOTES Date of Service DATE: 03/15/21 TIME: 10:58 Subjective Subjective comfortable. bowels are okay. lab reviewed. CRP 70 and ESR 45 and MRI pending. Objective Objective Vital Signs Date Time Temp Pulse Resp B/P (MAP) Pulse Ox O2 Delivery O2 Flow Rate FiO2 03/15/21 07:37 Room Air 03/15/21 07:00 97.7 70 20 119/47 (71) 94 97.7 Intake and Output 03/15/21 07:00 Intake Total 200 ml Output Total 400 ml Balance -200 ml Intake Oral 200 ml Output Urine Total 400 ml # Voids 1 Physical Exam Abdomen: Soft Heart: Regular rate, Normal S1, Normal S2 Extremities: No edema, Other (DP pulse palpated left foot) General: Alert HEENT: Atraumatic Lungs: Clear to auscultation Neuro: Normal speech Psych/Mental Status: Mood NL Skin: No rashes, Other (left lateral calf wound over fibular with some drainage on dressing) Assessment Assessment Problems1. Suspected acute osteomyelitis involving the left fibula. 2. Left calf wound which overlies the distal left fibula. 3. Chronic kidney disease stage 3. 4. Chronic venous insufficiency of the legs. 5. Parkinson's disease. 6. Anemia of chronic disease. 7. 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 Medical Problems: (1) Osteomyelitis Status: Acute Plan Plan of Care await culture results MRI of LLE continue iv zyvox and zosyn PT and OT Comment Review of Relevant I have reviewed the following items cathleen (where applicable) has been applied. Labs Laboratory Tests Test 03/14/21 11:10 03/15/21 04:30 White Blood Count 7.1 x10^3/uL (4.0-11.0) 5.2 x10^3/uL (4.0-11.0) Red Blood Count 4.18 x10^6/uL (3.50-5.40) 3.96 x10^6/uL (3.50-5.40) Hemoglobin 8.1 g/dL (12.0-15.5) 7.7 g/dL (12.0-15.5) Hematocrit 26.1 % (36.0-47.0) 24.9 % (36.0-47.0) Mean Corpuscular Volume 62 fL (79-100) 63 fL (79-100) Mean Corpuscular Hemoglobin 19 pg (25-35) 19 pg (25-35) Mean Corpuscular Hemoglobin Concent 31 g/dL (31-37) 31 g/dL (31-37) Red Cell Distribution Width 17.8 % (11.5-14.5) 17.6 % (11.5-14.5) Platelet Count 256 x10^3/uL (140-400) 229 x10^3/uL (140-400) Neutrophils (%) (Auto) 76 % (31-73) 53 % (31-73) Lymphocytes (%) (Auto) 15 % (24-48) 29 % (24-48) Monocytes (%) (Auto) 6 % (0-9) 7 % (0-9) Eosinophils (%) (Auto) 3 % (0-3) 11 % (0-3) Basophils (%) (Auto) 0 % (0-3) 1 % (0-3) Neutrophils # (Auto) 5.4 x10^3/uL (1.8-7.7) 2.8 x10^3/uL (1.8-7.7) Lymphocytes # (Auto) 1.1 x10^3/uL (1.0-4.8) 1.5 x10^3/uL (1.0-4.8) Monocytes # (Auto) 0.4 x10^3/uL (0.0-1.1) 0.4 x10^3/uL (0.0-1.1) Eosinophils # (Auto) 0.2 x10^3/uL (0.0-0.7) 0.5 x10^3/uL (0.0-0.7) Basophils # (Auto) 0.0 x10^3/uL (0.0-0.2) 0.0 x10^3/uL (0.0-0.2) Platelet Estimate Adequate (ADEQUATE) Hypochromasia Marked Anisocytosis Slight Microcytosis Marked Erythrocyte Sedimentation Rate 45 (0-25) Sodium Level 140 mmol/L (136-145) 140 mmol/L (136-145) Potassium Level 4.1 mmol/L (3.5-5.1) 4.0 mmol/L (3.5-5.1) Chloride Level 103 mmol/L (98-107) 104 mmol/L (98-107) Carbon Dioxide Level 30 mmol/L (21-32) 27 mmol/L (21-32) Anion Gap 7 (6-14) 9 (6-14) Blood Urea Nitrogen 33 mg/dL (7-20) 30 mg/dL (7-20) Creatinine 1.6 mg/dL (0.6-1.0) 1.8 mg/dL (0.6-1.0) Estimated GFR (Cockcroft-Gault) 37.0 32.3 BUN/Creatinine Ratio 21 (6-20) Glucose Level 82 mg/dL (70-99) 89 mg/dL (70-99) Calcium Level 8.8 mg/dL (8.5-10.1) 8.5 mg/dL (8.5-10.1) Total Bilirubin 0.5 mg/dL (0.2-1.0) Aspartate Amino Transf (AST/SGOT) 12 U/L (15-37) Alanine Aminotransferase (ALT/SGPT) 7 U/L (14-59) Alkaline Phosphatase 58 U/L (46-116) C-Reactive Protein, Quantitative 70.0 mg/L (0-3.3) Total Protein 7.6 g/dL (6.4-8.2) Albumin 3.1 g/dL (3.4-5.0) Albumin/Globulin Ratio 0.7 (1.0-1.7) Laboratory Tests Test 03/14/21 11:10 03/15/21 04:30 White Blood Count 7.1 x10^3/uL (4.0-11.0) 5.2 x10^3/uL (4.0-11.0) Red Blood Count 4.18 x10^6/uL (3.50-5.40) 3.96 x10^6/uL (3.50-5.40) Hemoglobin 8.1 g/dL (12.0-15.5) 7.7 g/dL (12.0-15.5) Hematocrit 26.1 % (36.0-47.0) 24.9 % (36.0-47.0) Mean Corpuscular Volume 62 fL (79-100) 63 fL (79-100) Mean Corpuscular Hemoglobin 19 pg (25-35) 19 pg (25-35) Mean Corpuscular Hemoglobin Concent 31 g/dL (31-37) 31 g/dL (31-37) Red Cell Distribution Width 17.8 % (11.5-14.5) 17.6 % (11.5-14.5) Platelet Count 256 x10^3/uL (140-400) 229 x10^3/uL (140-400) Neutrophils (%) (Auto) 76 % (31-73) 53 % (31-73) Lymphocytes (%) (Auto) 15 % (24-48) 29 % (24-48) Monocytes (%) (Auto) 6 % (0-9) 7 % (0-9) Eosinophils (%) (Auto) 3 % (0-3) 11 % (0-3) Basophils (%) (Auto) 0 % (0-3) 1 % (0-3) Neutrophils # (Auto) 5.4 x10^3/uL (1.8-7.7) 2.8 x10^3/uL (1.8-7.7) Lymphocytes # (Auto) 1.1 x10^3/uL (1.0-4.8) 1.5 x10^3/uL (1.0-4.8) Monocytes # (Auto) 0.4 x10^3/uL (0.0-1.1) 0.4 x10^3/uL (0.0-1.1) Eosinophils # (Auto) 0.2 x10^3/uL (0.0-0.7) 0.5 x10^3/uL (0.0-0.7) Basophils # (Auto) 0.0 x10^3/uL (0.0-0.2) 0.0 x10^3/uL (0.0-0.2) Platelet Estimate Adequate (ADEQUATE) Hypochromasia Marked Anisocytosis Slight Microcytosis Marked Erythrocyte Sedimentation Rate 45 (0-25) Sodium Level 140 mmol/L (136-145) 140 mmol/L (136-145) Potassium Level 4.1 mmol/L (3.5-5.1) 4.0 mmol/L (3.5-5.1) Chloride Level 103 mmol/L (98-107) 104 mmol/L (98-107) Carbon Dioxide Level 30 mmol/L (21-32) 27 mmol/L (21-32) Anion Gap 7 (6-14) 9 (6-14) Blood Urea Nitrogen 33 mg/dL (7-20) 30 mg/dL (7-20) Creatinine 1.6 mg/dL (0.6-1.0) 1.8 mg/dL (0.6-1.0) Estimated GFR (Cockcroft-Gault) 37.0 32.3 BUN/Creatinine Ratio 21 (6-20) Glucose Level 82 mg/dL (70-99) 89 mg/dL (70-99) Calcium Level 8.8 mg/dL (8.5-10.1) 8.5 mg/dL (8.5-10.1) Total Bilirubin 0.5 mg/dL (0.2-1.0) Aspartate Amino Transf (AST/SGOT) 12 U/L (15-37) Alanine Aminotransferase (ALT/SGPT) 7 U/L (14-59) Alkaline Phosphatase 58 U/L (46-116) C-Reactive Protein, Quantitative 70.0 mg/L (0-3.3) Total Protein 7.6 g/dL (6.4-8.2) Albumin 3.1 g/dL (3.4-5.0) Albumin/Globulin Ratio 0.7 (1.0-1.7) Microbiology 03/14/21 Gram Stain - Final, Resulted 03/14/21 Aerobic and Anaerobic Culture, Resulted Pending Medications Current Medications Vancomycin HCl 1.5 gm/Sodium Chloride 500 ml @ 250 mls/hr 1X ONCE IV ; Start 03/14/21 at 11:45; Stop 03/14/21 at 11:35; Status DC Ceftriaxone Sodium (Rocephin) 1 gm 1X ONCE IVP Last administered on 03/14/21at 11:30; Start 03/14/21 at 11:45; Stop 03/14/21 at 11:35; Status DC Piperacillin Sod/ Tazobactam Sod 4.5 gm/Sodium Chloride 100 ml @ 200 mls/hr 1X ONCE IV Last administered on 03/14/21at 11:52; Start 03/14/21 at 12:00; Stop 03/14/21 at 12:29; Status DC Linezolid/Dextrose 300 ml @ 300 mls/hr Q12HR IV Last administered on 03/15/21 08:30; Start 03/14/21 at 13:00 Piperacillin Sod/ Tazobactam Sod 3.375 gm/Sodium Chloride 50 ml @ 100 mls/hr Q6HRS IV Last administered on 03/15/21at 05:06; Start 03/14/21 at 18:00; Stop 03/15/21 at 09:35; Status DC Acetaminophen (Tylenol) 650 mg PRN Q6HRS PRN PO MILD PAIN / TEMP > 100.3'F; Start 03/14/21 at 16:00 Carbidopa/Levodopa (Sinemet Cr) 2 tab.sa TID PO Last administered on 03/15/21 08:32; Start 03/14/21 at 14:00 Apixaban (Eliquis) 2.5 mg BID PO Last administered on 03/15/21at 08:32; Start 03/14/21 at 21:00 Ferrous Sulfate (Feosol) 325 mg DAILYWBKFT PO Last administered on 03/15/21at 08:29; Start 03/15/21 at 08:00 Furosemide (Lasix) 20 mg DAILY PO Last administered on 03/15/21at 08:29; Start 03/15/21 at 09:00 Vitamin D (Vitamin D3) 1,000 unit DAILY PO Last administered on 03/15/21at 08:29; Start 03/15/21 at 09:00 Pramipexole Dihydrochloride (miraPEX) 0.5 mg [id number] PO Last administered on 03/15/21at 08:29; Start 03/14/21 at 16:30 Magnesium Hydroxide (Milk Of Magnesia) 2,400 mg PRN DAILY PRN PO CONSTIPATION; Start 03/14/21 at 16:00 Piperacillin Sod/ Tazobactam Sod (Zosyn Per Pharmacy) 1 each PRN DAILY PRN [facility] SEE COMMENTS; Start 03/14/21 at 16:15 Piperacillin Sod/ Tazobactam Sod 2.25 gm/Sodium Chloride 50 ml @ 100 mls/hr Q6HRS IV ; Start 03/15/21 at 12:00 Active Scripts Active Furosemide 20 Mg Tablet 20 Mg PO DAILY Eliquis (Apixaban) 5 Mg Tablet 5 Mg PO BID [Fluconazole] 100 MG Tablet 100 Mg PO DAILY 5 Days Zyvox (Linezolid) 600 Mg Tablet 600 Mg PO BID 5 Days Zosyn 2.25 Gm Pre-Mix Bag (Zkpvjxjuwkef-Kmiu-Juuauwsa,Iso) 2.25 Gm/50 Ml Froz.piggy 2.25 Gm IV Q6HRS 5 Days Hydrocodone-Acetamin 5-325 mg (Hydrocodone/Acetaminophen) 1 Each Tablet 1 Each PO Q6HRS PRN Culturelle (Lactobacillus Rhamnosus Gg) 1 Each Cap.sprink 1 Cap PO BID 10 Days Acetaminophen 500 Mg Tablet 500 Mg PO PRN Q4HRS PRN Reported Mirapex (Pramipexole Di-Hcl) 0.25 Mg Tablet 0.5 Mg PO TID Vitamin D3 (Cholecalciferol (Vitamin D3)) 1,000 Unit Tablet 1,000 Unit PO DAILY Sinemet Cr 50-200 Tablet (Carbidopa/Levodopa) 1 Each Tablet.er 1 Tab PO TID Vitals/I & O Vital Sign - Last 24 Hours 03/14/21 03/14/21 03/14/21 03/14/21 11:10 11:37 12:07 12:37 Temp 98.3 98.3 Pulse 67 70 69 72 Resp 16 18 18 18 B/P (MAP) 136/65 (88) 116/52 (73) 117/57 (77) 125/69 (87) Pulse Ox 100 98 98 98 O2 Delivery Room Air Room Air Room Air Room Air 03/14/21 03/14/21 03/14/21 03/14/21 13:07 13:37 14:07 14:37 Pulse 76 76 66 73 Resp 18 18 18 18 B/P (MAP) 109/60 (76) 110/62 (78) 111/61 (78) 111/62 (78) Pulse Ox 98 98 98 98 O2 Delivery Room Air Room Air Room Air Room Air 03/14/21 03/14/21 03/14/21 03/14/21 15:07 15:37 16:07 17:53 Pulse 73 66 69 Resp 18 18 18 B/P (MAP) 120/72 (88) 115/63 (80) 145/75 (98) Pulse Ox 98 98 98 O2 Delivery Room Air Room Air Room Air Room Air 03/14/21 03/14/21 03/14/21 03/14/21 18:23 19:00 20:00 23:00 Temp 98.0 98.2 98.2 98.0 98.2 98.2 Pulse 72 75 70 Resp 18 18 18 B/P (MAP) 145/75 (98) 101/57 (72) 116/55 (75) Pulse Ox 100 98 98 O2 Delivery Room Air Room Air Room Air Room Air 03/15/21 03/15/21 03/15/21 03:00 07:00 07:37 Temp 97.0 97.7 97.0 97.7 Pulse 82 70 Resp 18 20 B/P (MAP) 133/78 (96) 119/47 (71) Pulse Ox 98 94 O2 Delivery Room Air Room Air Room Air Intake and Output 03/14/21 03/14/21 03/15/21 15:00 23:00 07:00 Intake Total 200 ml Output Total 400 ml Balance -200 ml Justifications for Admission Other Justification ELI ROSALES MD Mar 15, 2021 11:01
[2021-03-15] MEDS: PIPERACILLIN/TAZOBACTAM 2.25 GM in IV NORMAL SALINE 50ML 50 ML IV SCH ×2 (11:49→16:33)
--- NOTE | 2021-03-15 13:12 | PDOC ---
PROGRESS NOTES Date of Service DATE: 03/15/21 TIME: 13:08 Subjective Subjective Patient was seen resting comfortably in a chair. Patient denies pain to the left distal leg. However it is very sensitive with pressure, as sometimes weightbearing as well. Other than that, she continues to deny any constitutional symptoms and has been tolerating IV antibiotics well. Objective Objective Vital Signs Date Time Temp Pulse Resp B/P (MAP) Pulse Ox O2 Delivery O2 Flow Rate FiO2 03/15/21 11:00 97.7 82 20 133/83 (100) 96 Room Air 97.7 Intake and Output 03/15/21 07:00 Intake Total 200 ml Output Total 400 ml Balance -200 ml Intake Oral 200 ml Output Urine Total 400 ml # Voids 1 Physical Exam Physical Exam General: AOx3, pleasant without distress Left lower extremity focused Dermatology: -Full-thickness ulcer to the lateral distal fibula shaft, measures approximately 3 x 4 cm. The wound base is 80% granular and 20% fibrotic with minimal undermining without proximal tracking, purulence discharge or fluctuance. Periwound is severely erythematous and edematous involving the entire tib-fib almost. Neurology: -Hypersensitivity to the lateral fibula -Diminished to light touch sensation to digits 1 through 5 Vascular: -DP PT palpable -Foot is warm to touch -CFT less than 3 seconds Musculoskeletal: -TTP at distal fibula where the wound is -Calf is soft however tender -Able to move digits and ankle -Passive ankle and knee range of motion was smooth without crepitus or pain -Popliteal lymph nodes are not tender on palpation Assessment Assessment Problems Medical Problems: (1) Osteomyelitis Status: Acute Plan Plan of Care Cellulitis, possible osteomyelitis in the setting of chronic open wound to the lateral fibular shaft -Wound culture: Gram-negative rods, gram-positive cocci -Pending blood culture x2 -trend WBC daily -Broad-spectrum IV antibiotics, will de-escalate based on wound culture -Dressing change: Betadine wet-to-dry gauze to the lateral wound, secured with Kerlix and tape -Avoid weightbearing or pressure to the lateral left lower extremity -DP/PT: Avoid pressure to left lower extremity, okay for upper body mobility -DVT prophylaxis: Per internal medicine -Pending MRI to further evaluate structures involved in preparation for surgical plans -Given patient does not meet SIRS criteria, surgical intervention is not urgent at this time. Dispo: Vascular surgery has evaluated the patient yesterday. Pending MRI and their recommendation. Comment Review of Relevant I have reviewed the following items cathleen (where applicable) has been applied. Labs Laboratory Tests Test 03/14/21 11:10 03/15/21 04:30 White Blood Count 7.1 x10^3/uL (4.0-11.0) 5.2 x10^3/uL (4.0-11.0) Red Blood Count 4.18 x10^6/uL (3.50-5.40) 3.96 x10^6/uL (3.50-5.40) Hemoglobin 8.1 g/dL (12.0-15.5) 7.7 g/dL (12.0-15.5) Hematocrit 26.1 % (36.0-47.0) 24.9 % (36.0-47.0) Mean Corpuscular Volume 62 fL (79-100) 63 fL (79-100) Mean Corpuscular Hemoglobin 19 pg (25-35) 19 pg (25-35) Mean Corpuscular Hemoglobin Concent 31 g/dL (31-37) 31 g/dL (31-37) Red Cell Distribution Width 17.8 % (11.5-14.5) 17.6 % (11.5-14.5) Platelet Count 256 x10^3/uL (140-400) 229 x10^3/uL (140-400) Neutrophils (%) (Auto) 76 % (31-73) 53 % (31-73) Lymphocytes (%) (Auto) 15 % (24-48) 29 % (24-48) Monocytes (%) (Auto) 6 % (0-9) 7 % (0-9) Eosinophils (%) (Auto) 3 % (0-3) 11 % (0-3) Basophils (%) (Auto) 0 % (0-3) 1 % (0-3) Neutrophils # (Auto) 5.4 x10^3/uL (1.8-7.7) 2.8 x10^3/uL (1.8-7.7) Lymphocytes # (Auto) 1.1 x10^3/uL (1.0-4.8) 1.5 x10^3/uL (1.0-4.8) Monocytes # (Auto) 0.4 x10^3/uL (0.0-1.1) 0.4 x10^3/uL (0.0-1.1) Eosinophils # (Auto) 0.2 x10^3/uL (0.0-0.7) 0.5 x10^3/uL (0.0-0.7) Basophils # (Auto) 0.0 x10^3/uL (0.0-0.2) 0.0 x10^3/uL (0.0-0.2) Platelet Estimate Adequate (ADEQUATE) Hypochromasia Marked Anisocytosis Slight Microcytosis Marked Erythrocyte Sedimentation Rate 45 (0-25) Sodium Level 140 mmol/L (136-145) 140 mmol/L (136-145) Potassium Level 4.1 mmol/L (3.5-5.1) 4.0 mmol/L (3.5-5.1) Chloride Level 103 mmol/L (98-107) 104 mmol/L (98-107) Carbon Dioxide Level 30 mmol/L (21-32) 27 mmol/L (21-32) Anion Gap 7 (6-14) 9 (6-14) Blood Urea Nitrogen 33 mg/dL (7-20) 30 mg/dL (7-20) Creatinine 1.6 mg/dL (0.6-1.0) 1.8 mg/dL (0.6-1.0) Estimated GFR (Cockcroft-Gault) 37.0 32.3 BUN/Creatinine Ratio 21 (6-20) Glucose Level 82 mg/dL (70-99) 89 mg/dL (70-99) Calcium Level 8.8 mg/dL (8.5-10.1) 8.5 mg/dL (8.5-10.1) Total Bilirubin 0.5 mg/dL (0.2-1.0) Aspartate Amino Transf (AST/SGOT) 12 U/L (15-37) Alanine Aminotransferase (ALT/SGPT) 7 U/L (14-59) Alkaline Phosphatase 58 U/L (46-116) C-Reactive Protein, Quantitative 70.0 mg/L (0-3.3) Total Protein 7.6 g/dL (6.4-8.2) Albumin 3.1 g/dL (3.4-5.0) Albumin/Globulin Ratio 0.7 (1.0-1.7) Laboratory Tests Test 03/15/21 04:30 White Blood Count 5.2 x10^3/uL (4.0-11.0) Red Blood Count 3.96 x10^6/uL (3.50-5.40) Hemoglobin 7.7 g/dL (12.0-15.5) Hematocrit 24.9 % (36.0-47.0) Mean Corpuscular Volume 63 fL (79-100) Mean Corpuscular Hemoglobin 19 pg (25-35) Mean Corpuscular Hemoglobin Concent 31 g/dL (31-37) Red Cell Distribution Width 17.6 % (11.5-14.5) Platelet Count 229 x10^3/uL (140-400) Neutrophils (%) (Auto) 53 % (31-73) Lymphocytes (%) (Auto) 29 % (24-48) Monocytes (%) (Auto) 7 % (0-9) Eosinophils (%) (Auto) 11 % (0-3) Basophils (%) (Auto) 1 % (0-3) Neutrophils # (Auto) 2.8 x10^3/uL (1.8-7.7) Lymphocytes # (Auto) 1.5 x10^3/uL (1.0-4.8) Monocytes # (Auto) 0.4 x10^3/uL (0.0-1.1) Eosinophils # (Auto) 0.5 x10^3/uL (0.0-0.7) Basophils # (Auto) 0.0 x10^3/uL (0.0-0.2) Sodium Level 140 mmol/L (136-145) Potassium Level 4.0 mmol/L (3.5-5.1) Chloride Level 104 mmol/L (98-107) Carbon Dioxide Level 27 mmol/L (21-32) Anion Gap 9 (6-14) Blood Urea Nitrogen 30 mg/dL (7-20) Creatinine 1.8 mg/dL (0.6-1.0) Estimated GFR (Cockcroft-Gault) 32.3 Glucose Level 89 mg/dL (70-99) Calcium Level 8.5 mg/dL (8.5-10.1) Microbiology 03/14/21 Gram Stain - Final, Resulted 03/14/21 Aerobic and Anaerobic Culture, Resulted Pending Medications Current Medications Vancomycin HCl 1.5 gm/Sodium Chloride 500 ml @ 250 mls/hr 1X ONCE IV ; Start 03/14/21 at 11:45; Stop 03/14/21 at 11:35; Status DC Ceftriaxone Sodium (Rocephin) 1 gm 1X ONCE IVP Last administered on 03/14/21at 11:30; Start 03/14/21 at 11:45; Stop 03/14/21 at 11:35; Status DC Piperacillin Sod/ Tazobactam Sod 4.5 gm/Sodium Chloride 100 ml @ 200 mls/hr 1X ONCE IV Last administered on 03/14/21at 11:52; Start 03/14/21 at 12:00; Stop 03/14/21 at 12:29; Status DC Linezolid/Dextrose 300 ml @ 300 mls/hr Q12HR IV Last administered on 03/15/21at 08:30; Start 03/14/21 at 13:00 Piperacillin Sod/ Tazobactam Sod 3.375 gm/Sodium Chloride 50 ml @ 100 mls/hr Q6HRS IV Last administered on 03/15/21at 05:06; Start 03/14/21 at 18:00; Stop 03/15/21 at 09:35; Status DC Acetaminophen (Tylenol) 650 mg PRN Q6HRS PRN PO MILD PAIN / TEMP > 100.3'F; Start 03/14/21 at 16:00 Carbidopa/Levodopa (Sinemet Cr) 2 tab.sa TID PO Last administered on 03/15/21at 08:32; Start 03/14/21 at 14:00 Apixaban (Eliquis) 2.5 mg BID PO Last administered on 03/15/21at 08:32; Start 03/14/21 at 21:00 Ferrous Sulfate (Feosol) 325 mg DAILYWBKFT PO Last administered on 03/15/21at 08:29; Start 03/15/21 at 08:00 Furosemide (Lasix) 20 mg DAILY PO Last administered on 03/15/21at 08:29; Start 03/15/21 at 09:00 Vitamin D (Vitamin D3) 1,000 unit DAILY PO Last administered on 03/15/21at 08:29; Start 03/15/21 at 09:00 Pramipexole Dihydrochloride (miraPEX) 0.5 mg [id number] PO Last administered on 03/15/21at 08:29; Start 03/14/21 at 16:30 Magnesium Hydroxide (Milk Of Magnesia) 2,400 mg PRN DAILY PRN PO CONSTIPATION; Start 03/14/21 at 16:00 Piperacillin Sod/ Tazobactam Sod (Zosyn Per Pharmacy) 1 each PRN DAILY PRN [facility] SEE COMMENTS; Start 03/14/21 at 16:15 Piperacillin Sod/ Tazobactam Sod 2.25 gm/Sodium Chloride 50 ml @ 100 mls/hr Q6HRS IV Last administered on 03/15/21at 11:49; Start 03/15/21 at 12:00 Active Scripts Active Furosemide 20 Mg Tablet 20 Mg PO DAILY Eliquis (Apixaban) 5 Mg Tablet 5 Mg PO BID [Fluconazole] 100 MG Tablet 100 Mg PO DAILY 5 Days Zyvox (Linezolid) 600 Mg Tablet 600 Mg PO BID 5 Days Zosyn 2.25 Gm Pre-Mix Bag (Xltngzzasxos-Lkvg-Gpdkimxu,Iso) 2.25 Gm/50 Ml Froz.piggy 2.25 Gm IV Q6HRS 5 Days Hydrocodone-Acetamin 5-325 mg (Hydrocodone/Acetaminophen) 1 Each Tablet 1 Each PO Q6HRS PRN Culturelle (Lactobacillus Rhamnosus Gg) 1 Each Cap.sprink 1 Cap PO BID 10 Days Acetaminophen 500 Mg Tablet 500 Mg PO PRN Q4HRS PRN Reported Mirapex (Pramipexole Di-Hcl) 0.25 Mg Tablet 0.5 Mg PO TID Vitamin D3 (Cholecalciferol (Vitamin D3)) 1,000 Unit Tablet 1,000 Unit PO DAILY Sinemet Cr 50-200 Tablet (Carbidopa/Levodopa) 1 Each Tablet.er 1 Tab PO TID Vitals/I & O Vital Sign - Last 24 Hours 03/14/21 03/14/21 03/14/21 03/14/21 13:37 14:07 14:37 15:07 Pulse 76 66 73 73 Resp 18 18 18 18 B/P (MAP) 110/62 (78) 111/61 (78) 111/62 (78) 120/72 (88) Pulse Ox 98 98 98 98 O2 Delivery Room Air Room Air Room Air Room Air 03/14/21 03/14/21 03/14/21 03/14/21 15:37 16:07 17:53 18:23 Temp 98.0 98.0 Pulse 66 69 72 Resp 18 18 18 B/P (MAP) 115/63 (80) 145/75 (98) 145/75 (98) Pulse Ox 98 98 100 O2 Delivery Room Air Room Air Room Air Room Air 03/14/21 03/14/21 03/14/21 03/15/21 19:00 20:00 23:00 03:00 Temp 98.2 98.2 97.0 98.2 98.2 97.0 Pulse 75 70 82 Resp 18 18 18 B/P (MAP) 101/57 (72) 116/55 (75) 133/78 (96) Pulse Ox 98 98 98 O2 Delivery Room Air Room Air Room Air Room Air 03/15/21 03/15/21 03/15/21 07:00 07:37 11:00 Temp 97.7 97.7 97.7 97.7 Pulse 70 82 Resp 20 20 B/P (MAP) 119/47 (71) 133/83 (100) Pulse Ox 94 96 O2 Delivery Room Air Room Air Room Air Intake and Output 03/14/21 03/14/21 03/15/21 15:00 23:00 07:00 Intake Total 200 ml Output Total 400 ml Balance -200 ml Justifications for Admission Other Justification HEATHER KOCH DPM Mar 15, 2021 13:12
[2021-03-15 14:56] VITALS: BP 126/54
[2021-03-15 19:00] VITALS: BP 132/75
[2021-03-15 23:00] VITALS: BP 146/83
[2021-03-16 03:00] VITALS: BP 142/71
[2021-03-16] MEDS: PIPERACILLIN/TAZOBACTAM 2.25 GM in IV NORMAL SALINE 50ML 50 ML IV SCH ×5 (06:02→22:57)
[2021-03-16 07:00] VITALS: BP 136/60
[2021-03-16] MEDS: FUROSEMIDE 20 MG TABLET PO SCH (08:49)
[2021-03-16] MEDS: APIXABAN 2.5 MG TABLET. PO SCH ×2 (08:49→20:01)
[2021-03-16] MEDS: FERROUS SULFATE 325 MG TABLET. PO SCH (08:49)
[2021-03-16] MEDS: ACETAMINOPHEN 325 MG TABLET. PO PRN ×2 (08:49→20:02)
[2021-03-16] MEDS: CHOLECALCIFEROL (VITAMIN D3) 1,000 UNIT TABLET PO SCH (08:49)
[2021-03-16] MEDS: CARBIDOPA/LEVODOPA CR 25/100MG TABLET.SA. PO SCH ×3 (08:49→20:01)
[2021-03-16] MEDS: PRAMIPEXOLE 0.25 MG TABLET. PO SCH ×3 (08:50→20:01)
[2021-03-16 11:00] VITALS: BP 127/68
--- NOTE | 2021-03-16 11:36 | PDOC ---
PROGRESS NOTES Date of Service DATE: 03/16/21 TIME: 11:32 Subjective Subjective feels okay. comfortable. bowels are okay. wound culture grew Proteus and enterococcus and sensitivities pending blood cultures negative so far . afebrile. Objective Objective Vital Signs Date Time Temp Pulse Resp B/P (MAP) Pulse Ox O2 Delivery O2 Flow Rate FiO2 03/16/21 07:38 Room Air 03/16/21 07:00 97.5 77 18 136/60 (85) 98 97.5 Intake and Output 03/16/21 07:00 Intake Total 750 ml Balance 750 ml Intake Oral 400 ml IV Total 350 ml # Voids 6 Physical Exam Abdomen: Soft Heart: Regular rate, Normal S1, Normal S2 Extremities: Other (1 nplus edema left foot) General: Alert HEENT: Atraumatic Lungs: Clear to auscultation Neuro: Normal speech Psych/Mental Status: Mood NL Skin: Other (dry dressing over left calf wound) Assessment Assessment Problems1. Suspected acute osteomyelitis involving the left fibula. 2. Left calf wound which overlies the distal left fibula. wound cultures grew Proteus and enterococcus 3. Chronic kidney disease stage 3. 4. Chronic venous insufficiency of the legs. 5. Parkinson's disease. 6. Anemia of chronic disease. 7. 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 Labs Laboratory Tests Test 03/15/21 04:30 White Blood Count 5.2 x10^3/uL (4.0-11.0) Red Blood Count 3.96 x10^6/uL (3.50-5.40) Hemoglobin 7.7 g/dL (12.0-15.5) Hematocrit 24.9 % (36.0-47.0) Mean Corpuscular Volume 63 fL (79-100) Mean Corpuscular Hemoglobin 19 pg (25-35) Mean Corpuscular Hemoglobin Concent 31 g/dL (31-37) Red Cell Distribution Width 17.6 % (11.5-14.5) Platelet Count 229 x10^3/uL (140-400) Neutrophils (%) (Auto) 53 % (31-73) Lymphocytes (%) (Auto) 29 % (24-48) Monocytes (%) (Auto) 7 % (0-9) Eosinophils (%) (Auto) 11 % (0-3) Basophils (%) (Auto) 1 % (0-3) Neutrophils # (Auto) 2.8 x10^3/uL (1.8-7.7) Lymphocytes # (Auto) 1.5 x10^3/uL (1.0-4.8) Monocytes # (Auto) 0.4 x10^3/uL (0.0-1.1) Eosinophils # (Auto) 0.5 x10^3/uL (0.0-0.7) Basophils # (Auto) 0.0 x10^3/uL (0.0-0.2) Sodium Level 140 mmol/L (136-145) Potassium Level 4.0 mmol/L (3.5-5.1) Chloride Level 104 mmol/L (98-107) Carbon Dioxide Level 27 mmol/L (21-32) Anion Gap 9 (6-14) Blood Urea Nitrogen 30 mg/dL (7-20) Creatinine 1.8 mg/dL (0.6-1.0) Estimated GFR (Cockcroft-Gault) 32.3 Glucose Level 89 mg/dL (70-99) Calcium Level 8.5 mg/dL (8.5-10.1) Microbiology 03/14/21 Blood Culture - Preliminary, Resulted NO GROWTH AFTER 1 DAY 03/14/21 Gram Stain - Final, Resulted 03/14/21 Aerobic and Anaerobic Culture - Preliminary, Resulted Medications Current Medications Vancomycin HCl 1.5 gm/Sodium Chloride 500 ml @ 250 mls/hr 1X ONCE IV ; Start 03/14/21 at 11:45; Stop 03/14/21 at 11:35; Status DC Ceftriaxone Sodium (Rocephin) 1 gm 1X ONCE IVP Last administered on 03/14/21at 11:30; Start 03/14/21 at 11:45; Stop 03/14/21 at 11:35; Status DC Piperacillin Sod/ Tazobactam Sod 4.5 gm/Sodium Chloride 100 ml @ 200 mls/hr 1X ONCE IV Last administered on 03/14/21at 11:52; Start 03/14/21 at 12:00; Stop 03/14/21 at 12:29; Status DC Linezolid/Dextrose 300 ml @ 300 mls/hr Q12HR IV Last administered on 03/16/21 08:51; Start 03/14/21 at 13:00 Piperacillin Sod/ Tazobactam Sod 3.375 gm/Sodium Chloride 50 ml @ 100 mls/hr Q6HRS IV Last administered on 03/15/21at 05:06; Start 03/14/21 at 18:00; Stop 03/15/21 at 09:35; Status DC Acetaminophen (Tylenol) 650 mg PRN Q6HRS PRN PO MILD PAIN / TEMP > 100.3'F Last administered on 03/16/21 08:49; Start 03/14/21 at 16:00 Carbidopa/Levodopa (Sinemet Cr) 2 tab.sa TID PO Last administered on 03/16/21 08:49; Start 03/14/21 at 14:00 Apixaban (Eliquis) 2.5 mg BID PO Last administered on 03/16/21 08:49; Start 03/14/21 at 21:00 Ferrous Sulfate (Feosol) 325 mg DAILYWBKFT PO Last administered on 03/16/21 08:49; Start 03/15/21 at 08:00 Furosemide (Lasix) 20 mg DAILY PO Last administered on 03/16/21 08:49; Start 03/15/21 at 09:00 Vitamin D (Vitamin D3) 1,000 unit DAILY PO Last administered on 03/16/21 08:49; Start 03/15/21 at 09:00 Pramipexole Dihydrochloride (miraPEX) 0.5 mg [id number] PO Last administered on 03/16/21 08:50; Start 03/14/21 at 16:30 Magnesium Hydroxide (Milk Of Magnesia) 2,400 mg PRN DAILY PRN PO CONSTIPATION; Start 03/14/21 at 16:00 Piperacillin Sod/ Tazobactam Sod (Zosyn Per Pharmacy) 1 each PRN DAILY PRN MC SEE COMMENTS; Start 03/14/21 at 16:15 Piperacillin Sod/ Tazobactam Sod 2.25 gm/Sodium Chloride 50 ml @ 100 mls/hr Q6HRS IV Last administered on 03/16/21at 11:30; Start 03/15/21 at 12:00 Lactobacillus Rhamnosus (Culturelle) 1 cap BID PO ; Start 03/16/21 at 21:00 Active Scripts Active Furosemide 20 Mg Tablet 20 Mg PO DAILY Eliquis (Apixaban) 5 Mg Tablet 5 Mg PO BID [Fluconazole] 100 MG Tablet 100 Mg PO DAILY 5 Days Zyvox (Linezolid) 600 Mg Tablet 600 Mg PO BID 5 Days Zosyn 2.25 Gm Pre-Mix Bag (Hnpoubwuzzzr-Lzri-Iypjzajr,Iso) 2.25 Gm/50 Ml Froz.piggy 2.25 Gm IV Q6HRS 5 Days Hydrocodone-Acetamin 5-325 mg (Hydrocodone/Acetaminophen) 1 Each Tablet 1 Each PO Q6HRS PRN Culturelle (Lactobacillus Rhamnosus Gg) 1 Each Cap.sprink 1 Cap PO BID 10 Days Acetaminophen 500 Mg Tablet 500 Mg PO PRN Q4HRS PRN Reported Mirapex (Pramipexole Di-Hcl) 0.25 Mg Tablet 0.5 Mg PO TID Vitamin D3 (Cholecalciferol (Vitamin D3)) 1,000 Unit Tablet 1,000 Unit PO DAILY Sinemet Cr 50-200 Tablet (Carbidopa/Levodopa) 1 Each Tablet.er 1 Tab PO TID Vitals/I & O Vital Sign - Last 24 Hours 03/15/21 03/15/21 03/15/21 03/15/21 14:56 19:00 20:00 23:00 Temp 97.5 97.5 97.4 97.5 97.5 97.4 Pulse 90 67 77 Resp 20 18 18 B/P (MAP) 126/54 (78) 132/75 (94) 146/83 (104) Pulse Ox 96 97 99 O2 Delivery Room Air Room Air Room Air Room Air 03/16/21 03/16/21 03/16/21 03:00 07:00 07:38 Temp 97.7 97.5 97.7 97.5 Pulse 82 77 Resp 18 18 B/P (MAP) 142/71 (94) 136/60 (85) Pulse Ox 97 98 O2 Delivery Room Air Room Air Room Air Intake and Output 03/15/21 03/15/21 03/16/21 15:00 23:00 07:00 Intake Total 200 ml 200 ml 350 ml Balance 200 ml 200 ml 350 ml Justifications for Admission Other Justification ELI ROSALES MD Mar 16, 2021 11:36
[2021-03-16 15:00] VITALS: BP 142/75
[2021-03-16 19:42] VITALS: BP 141/73
[2021-03-16] MEDS: LACTOBACILLUS RHAMNOSUS GG 1 CAPSULE. PO SCH (20:01)
[2021-03-16 22:49] VITALS: BP 151/82
[2021-03-17 03:16] VITALS: BP 148/78
[2021-03-17] MEDS: PIPERACILLIN/TAZOBACTAM 2.25 GM in IV NORMAL SALINE 50ML 50 ML IV SCH ×4 (05:24→23:55)
[2021-03-17 07:00] VITALS: BP 164/94
[2021-03-17 07:11] LABS: BASO # 0.1 x10^3/uL (0.0-0.2); BASO % 1 % (0-3); EOS # 0.4 x10^3/uL (0.0-0.7); EOS % 8 % (0-3); HEMATOCRIT 25.4 % (36.0-47.0); HEMOGLOBIN 8.2 g/dL (12.0-15.5); LYMPH # 1.9 x10^3/uL (1.0-4.8); LYMPH % 35 % (24-48); MEAN CORPUSCULAR HEMOGLOBIN 20 pg (25-35); MEAN CORPUSCULAR HGB CONC 32 g/dL (31-37); MEAN CORPUSCULAR VOLUME 63 fL (79-100); MONO # 0.3 x10^3/uL (0.0-1.1); MONO % 5 % (0-9); NEUT # 2.8 x10^3/uL (1.8-7.7); NEUT % 51 % (31-73); PLATELET COUNT 282 x10^3/uL (140-400); RED BLOOD COUNT 4.02 x10^6/uL (3.50-5.40); WHITE BLOOD COUNT 5.6 x10^3/uL (4.0-11.0)
[2021-03-17 07:19] LABS: CALCIUM 8.6 mg/dL (8.5-10.1); CREATININE 1.5 mg/dL (0.6-1.0); GFR 39.8
--- NOTE | 2021-03-17 08:29 | PDOC ---
Provider Note Date of Service: DATE: 03/17/21 TIME: 08:28 Provider Note Provider Note Vascular 86 year old female with left lateral leg wound. Patient is out of room getting MRI. Will make additional recommendations pending results Justicifation of Admission Dx: Justifications for Admission: Justification of Admission Dx: Comment: Cellulitis: Cellulitis ISABELLE GONZALEZ APRN Mar 17, 2021 08:29
[2021-03-17] MEDS ORDERED: GADOTERATE 7.5 MMOL/15ML VIAL. IVP ONE (09:30)
[2021-03-17] MEDS: PRAMIPEXOLE 0.25 MG TABLET. PO SCH ×3 (10:08→19:36)
[2021-03-17] MEDS: CHOLECALCIFEROL (VITAMIN D3) 1,000 UNIT TABLET PO SCH (10:08)
[2021-03-17] MEDS: CARBIDOPA/LEVODOPA CR 25/100MG TABLET.SA. PO SCH ×3 (10:10→19:35)
[2021-03-17] MEDS: LACTOBACILLUS RHAMNOSUS GG 1 CAPSULE. PO SCH ×2 (10:10→19:36)
[2021-03-17] MEDS: FERROUS SULFATE 325 MG TABLET. PO SCH (10:10)
[2021-03-17] MEDS: APIXABAN 2.5 MG TABLET. PO SCH ×2 (10:11→19:36)
[2021-03-17] MEDS: FUROSEMIDE 20 MG TABLET PO SCH (10:11)
--- NOTE | 2021-03-17 10:17 | PDOC ---
PROGRESS NOTES Date of Service DATE: 03/17/21 TIME: 10:12 Subjective Subjective just returned from MRI and MRI of LLE report pending. lab reviewed. creatinine 1.5. slightly better. bp is high. and will start low dose amlodipine. feels well. comfortable. Objective Objective Vital Signs Date Time Temp Pulse Resp B/P (MAP) Pulse Ox O2 Delivery O2 Flow Rate FiO2 03/17/21 07:00 98.1 74 18 164/94 (117) 98 Room Air 98.1 Intake and Output 03/17/21 07:00 Intake Total 2945 ml Output Total 320 ml Balance 2625 ml Intake Oral 1250 ml Blood Product IV Normal Saline Flush 1695 ml Output Urine Total 320 ml # Voids 5 # Bowel Movements 3 Physical Exam Abdomen: Soft Heart: Regular rate, Normal S1, Normal S2 Extremities: Other (1 plus edema left foot, dry dressing left leg) General: Alert HEENT: Atraumatic Lungs: Clear to auscultation Neuro: Normal speech Psych/Mental Status: Mental status NL Skin: Other (left calf dressing) Assessment Assessment Problems. Suspected acute osteomyelitis involving the left fibula. 2. Left calf wound which overlies the distal left fibula. wound cultures grew Proteus and enterococcus 3. Chronic kidney disease stage 3. 4. Chronic venous insufficiency of the legs. 5. Parkinson's disease. 6. Anemia of chronic disease. 7. 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 bp is high Medical Problems: (1) Osteomyelitis Status: Acute Plan Plan of Care await MRI LLE report continue iv zyvox and zosyn ID consult start amlodipine continue wound care PT and OT continue eliquis Comment Review of Relevant I have reviewed the following items cathleen (where applicable) has been applied. Labs Laboratory Tests Test 03/17/21 06:00 White Blood Count 5.6 x10^3/uL (4.0-11.0) Red Blood Count 4.02 x10^6/uL (3.50-5.40) Hemoglobin 8.2 g/dL (12.0-15.5) Hematocrit 25.4 % (36.0-47.0) Mean Corpuscular Volume 63 fL (79-100) Mean Corpuscular Hemoglobin 20 pg (25-35) Mean Corpuscular Hemoglobin Concent 32 g/dL (31-37) Red Cell Distribution Width 18.0 % (11.5-14.5) Platelet Count 282 x10^3/uL (140-400) Neutrophils (%) (Auto) 51 % (31-73) Lymphocytes (%) (Auto) 35 % (24-48) Monocytes (%) (Auto) 5 % (0-9) Eosinophils (%) (Auto) 8 % (0-3) Basophils (%) (Auto) 1 % (0-3) Neutrophils # (Auto) 2.8 x10^3/uL (1.8-7.7) Lymphocytes # (Auto) 1.9 x10^3/uL (1.0-4.8) Monocytes # (Auto) 0.3 x10^3/uL (0.0-1.1) Eosinophils # (Auto) 0.4 x10^3/uL (0.0-0.7) Basophils # (Auto) 0.1 x10^3/uL (0.0-0.2) Sodium Level 141 mmol/L (136-145) Potassium Level 4.0 mmol/L (3.5-5.1) Chloride Level 106 mmol/L (98-107) Carbon Dioxide Level 26 mmol/L (21-32) Anion Gap 9 (6-14) Blood Urea Nitrogen 18 mg/dL (7-20) Creatinine 1.5 mg/dL (0.6-1.0) Estimated GFR (Cockcroft-Gault) 39.8 Glucose Level 67 mg/dL (70-99) Calcium Level 8.6 mg/dL (8.5-10.1) Laboratory Tests Test 03/17/21 06:00 White Blood Count 5.6 x10^3/uL (4.0-11.0) Red Blood Count 4.02 x10^6/uL (3.50-5.40) Hemoglobin 8.2 g/dL (12.0-15.5) Hematocrit 25.4 % (36.0-47.0) Mean Corpuscular Volume 63 fL (79-100) Mean Corpuscular Hemoglobin 20 pg (25-35) Mean Corpuscular Hemoglobin Concent 32 g/dL (31-37) Red Cell Distribution Width 18.0 % (11.5-14.5) Platelet Count 282 x10^3/uL (140-400) Neutrophils (%) (Auto) 51 % (31-73) Lymphocytes (%) (Auto) 35 % (24-48) Monocytes (%) (Auto) 5 % (0-9) Eosinophils (%) (Auto) 8 % (0-3) Basophils (%) (Auto) 1 % (0-3) Neutrophils # (Auto) 2.8 x10^3/uL (1.8-7.7) Lymphocytes # (Auto) 1.9 x10^3/uL (1.0-4.8) Monocytes # (Auto) 0.3 x10^3/uL (0.0-1.1) Eosinophils # (Auto) 0.4 x10^3/uL (0.0-0.7) Basophils # (Auto) 0.1 x10^3/uL (0.0-0.2) Sodium Level 141 mmol/L (136-145) Potassium Level 4.0 mmol/L (3.5-5.1) Chloride Level 106 mmol/L (98-107) Carbon Dioxide Level 26 mmol/L (21-32) Anion Gap 9 (6-14) Blood Urea Nitrogen 18 mg/dL (7-20) Creatinine 1.5 mg/dL (0.6-1.0) Estimated GFR (Cockcroft-Gault) 39.8 Glucose Level 67 mg/dL (70-99) Calcium Level 8.6 mg/dL (8.5-10.1) Microbiology 03/14/21 Blood Culture - Preliminary, Resulted NO GROWTH AFTER 2 DAYS 03/14/21 Gram Stain - Final, Resulted 03/14/21 Aerobic and Anaerobic Culture - Preliminary, Resulted 03/14/21 Antimicrobic Susceptibility - Preliminary, Resulted Medications Current Medications Vancomycin HCl 1.5 gm/Sodium Chloride 500 ml @ 250 mls/hr 1X ONCE IV ; Start 03/14/21 at 11:45; Stop 03/14/21 at 11:35; Status DC Ceftriaxone Sodium (Rocephin) 1 gm 1X ONCE IVP Last administered on 03/14/21at 11:30; Start 03/14/21 at 11:45; Stop 03/14/21 at 11:35; Status DC Piperacillin Sod/ Tazobactam Sod 4.5 gm/Sodium Chloride 100 ml @ 200 mls/hr 1X ONCE IV Last administered on 03/14/21at 11:52; Start 03/14/21 at 12:00; Stop 03/14/21 at 12:29; Status DC Linezolid/Dextrose 300 ml @ 300 mls/hr Q12HR IV Last administered on 03/16/21at 21:18; Start 03/14/21 at 13:00 Piperacillin Sod/ Tazobactam Sod 3.375 gm/Sodium Chloride 50 ml @ 100 mls/hr Q6HRS IV Last administered on 03/15/21at 05:06; Start 03/14/21 at 18:00; Stop 03/15/21 at 09:35; Status DC Acetaminophen (Tylenol) 650 mg PRN Q6HRS PRN PO MILD PAIN / TEMP > 100.3'F Last administered on 03/16/21at 20:02; Start 03/14/21 at 16:00 Carbidopa/Levodopa (Sinemet Cr) 2 tab.sa TID PO Last administered on 03/16/21at 20:01; Start 03/14/21 at 14:00 Apixaban (Eliquis) 2.5 mg BID PO Last administered on 03/16/21 20:01; Start 03/14/21 at 21:00 Ferrous Sulfate (Feosol) 325 mg DAILYWBKFT PO Last administered on 03/16/21at 08:49; Start 03/15/21 at 08:00 Furosemide (Lasix) 20 mg DAILY PO Last administered on 03/16/21at 08:49; Start 03/15/21 at 09:00 Vitamin D (Vitamin D3) 1,000 unit DAILY PO Last administered on 03/16/21at 08:49; Start 03/15/21 at 09:00 Pramipexole Dihydrochloride (miraPEX) 0.5 mg [id number] PO Last administered on 03/16/21at 20:01; Start 03/14/21 at 16:30 Magnesium Hydroxide (Milk Of Magnesia) 2,400 mg PRN DAILY PRN PO CONSTIPATION; Start 03/14/21 at 16:00 Piperacillin Sod/ Tazobactam Sod (Zosyn Per Pharmacy) 1 each PRN DAILY PRN MC SEE COMMENTS; Start 03/14/21 at 16:15 Piperacillin Sod/ Tazobactam Sod 2.25 gm/Sodium Chloride 50 ml @ 100 mls/hr Q6HRS IV Last administered on 03/17/21at 05:24; Start 03/15/21 at 12:00 Lactobacillus Rhamnosus (Culturelle) 1 cap BID PO Last administered on 03/16/21at 20:01; Start 03/16/21 at 21:00 Gadoterate Meglumine (Clariscan) 15 ml 1X ONCE IVP Last administered on 03/17/21at 09:25; Start 03/17/21 at 09:30; Stop 03/17/21 at 09:31; Status DC Active Scripts Active Furosemide 20 Mg Tablet 20 Mg PO DAILY Eliquis (Apixaban) 5 Mg Tablet 5 Mg PO BID [Fluconazole] 100 MG Tablet 100 Mg PO DAILY 5 Days Zyvox (Linezolid) 600 Mg Tablet 600 Mg PO BID 5 Days Zosyn 2.25 Gm Pre-Mix Bag (Fvklmuaoznna-Nsqf-Alxsbmkd,Iso) 2.25 Gm/50 Ml Froz.piggy 2.25 Gm IV Q6HRS 5 Days Hydrocodone-Acetamin 5-325 mg (Hydrocodone/Acetaminophen) 1 Each Tablet 1 Each PO Q6HRS PRN Culturelle (Lactobacillus Rhamnosus Gg) 1 Each Cap.sprink 1 Cap PO BID 10 Days Acetaminophen 500 Mg Tablet 500 Mg PO PRN Q4HRS PRN Reported Mirapex (Pramipexole Di-Hcl) 0.25 Mg Tablet 0.5 Mg PO TID Vitamin D3 (Cholecalciferol (Vitamin D3)) 1,000 Unit Tablet 1,000 Unit PO DAILY Sinemet Cr 50-200 Tablet (Carbidopa/Levodopa) 1 Each Tablet.er 1 Tab PO TID Vitals/I & O Vital Sign - Last 24 Hours 03/16/21 03/16/21 03/16/21 03/16/21 11:00 15:00 19:42 20:00 Temp 97.4 98.1 98.1 97.4 98.1 98.1 Pulse 78 83 84 Resp 20 18 16 B/P (MAP) 127/68 (87) 142/75 (97) 141/73 (95) Pulse Ox 100 99 98 O2 Delivery Room Air Room Air Room Air Room Air 03/16/21 03/17/21 03/17/21 22:49 03:16 07:00 Temp 98.3 98.4 98.1 98.3 98.4 98.1 Pulse 85 59 74 Resp 18 18 18 B/P (MAP) 151/82 (105) 148/78 (101) 164/94 (117) Pulse Ox 97 96 98 O2 Delivery Room Air Room Air Room Air Intake and Output 03/16/21 03/16/21 03/17/21 15:00 23:00 07:00 Intake Total 520 ml 2185 ml 240 ml Output Total 320 ml Balance 200 ml 2185 ml 240 ml Justifications for Admission Other Justification ELI ROSALES MD Mar 17, 2021 10:17
[2021-03-17 11:29] VITALS: BP 146/75
--- NOTE | 2021-03-17 12:09 | CONS ---
DATE OF CONSULTATION: 03/17/2021 REFERRING PHYSICIAN: Dr. Milse. REASON FOR CONSULTATION: Antibiotic management. HISTORY OF PRESENT ILLNESS: An 86-year-old female with history of chronic left lateral calf wound, chronic venous insufficiency of the legs, Parkinson's, anemia of chronic disease, history of bilateral DVT of both legs, on chronic Eliquis; CKD, who [facility] for chronic nonhealing left lateral leg wound. The patient had been on antibiotics off and on. This has been going on since July of 2020. [facility], x-ray was done and this was suspicious for osteomyelitis of the distal section of the left fibula. The patient was admitted for further evaluation and treatment. The patient was started on linezolid and Zosyn. ID consultation has been requested for antibiotic management. The patient underwent MRI of the lower extremity, which is pending at this time. Vascular Surgery has evaluated the patient. PAST MEDICAL HISTORY: CKD, anemia, bilateral lower extremity DVT on chronic Eliquis; Parkinson's disease; laparoscopic cholecystectomy; thalassemia minor; chronic gout; history of IVC filter placement. SOCIAL HISTORY: Denies smoking, ETOH, or illicit drug use. FAMILY HISTORY: As per HPI. REVIEW OF SYSTEMS: Negative except for above in HPI. PHYSICAL EXAMINATION: VITAL SIGNS: Reviewed, afebrile. HEENT: Normocephalic, atraumatic. Anicteric. Oral mucosa moist. NECK: Supple. LUNGS: Clear bilaterally. HEART: S1, S2. ABDOMEN: Soft, nontender, bowel sounds present. EXTREMITIES: Right lower extremity has edema, 1-2+ edema of the left lower extremity. There is an open wound with sinus tract on the superior aspect on the left lateral leg, mild surrounding erythema and slight warmth. No gross purulence noted. No drainage noted. Dorsalis pedis palpable. No cyanosis, no clubbing. DERMATOLOGIC: Warm, dry, no generalized rash except for above. NEUROLOGIC: Alert, oriented x 3, grossly nonfocal. PSYCHIATRIC: Calm and cooperative.. LABORATORY DATA: WBC 5.6, hemoglobin 8.2, hematocrit 25.4, platelets 282. Sodium 141, potassium 4.0, chloride 106, bicarbonate 26, BUN 18, creatinine 1.5. Micro: Blood cultures negative. Left lateral leg wound, superficial cultures positive for Proteus mirabilis, Enterococcus faecalis and porphyromonas. IMAGIN. Chest x-ray reviewed. 2. Lower extremity MRI pending. IMPRESSION: 1. Chronic nonhealing left lateral leg wound, possible osteomyelitis,treated with keflex outpt. 2. Anemia. 3. Chronic kidney disease, 4. Parkinson's. 5. History of bilateral DVT. RECOMMENDATIONS: 1. Continue linezolid and Zosyn. 2. Follow up MRI of the left lower extremity. 3. Vascular team is consulted. 4. Continue local wound care as directed. 5. Monitor labs and cultures. 6. Continue supportive care. Discussed with nursing staff. Thank you, Dr. Miles for consulting Infectious Disease to participate in this patient's care. If you have any questions, do not hesitate to contact me. DOMINICK/ROZ CALIX: Kaylah TID: [id number] MTDD
--- NOTE | 2021-03-17 14:43 | RAD ---
EXAMINATION: MRI LEFT LEG WITH IV CONTRAST CLINICAL HISTORY: Lateral left lower leg wound, concern for osteomyelitis TECHNIQUE: Multiplanar multisequential images obtained through the distal left leg with intravenous c ontrast. COMPARISON: None FINDINGS: 2.1 x 0.8 x 0.3 cm ulcer along the lateral aspect of the mid to distal leg with 2.2 x 0.6 x 3.2 cm mcduffie bcutaneous abscess extending posteriorly and distally from the ulcer. Surrounding skin thickening and subcutaneous edema. Near diffuse reactive muscular edema in the leg at this level. Tendons intact. Partially visualized fibular endosteal and periosteal edema, compatible with a stress response. No me dullary edema with corresponding T1 marrow signal abnormality to suggest osteomyelitis. No evidence o f acute fracture. IMPRESSION: Ulcer along the lateral leg with subjacent small subcutaneous abscess and soft tissue changes compati ble with cellulitis. Findings compatible with stress response in the fibula, only partially visualized. No evidence of ost eomyelitis. Electronically signed by: Eliseo Leon DO (03/17/2021 2:41 PM) [id number]
--- NOTE | 2021-03-17 14:51 | NUR ---
Wound Care Pt is a current pt of Dr. Jin, who is overseeing her wound care, with specific dressing change orders. Wound care will sign off at this time.
[2021-03-17 14:52] VITALS: BP 121/73
[2021-03-17 19:45] VITALS: BP 138/83
[2021-03-17 22:33] VITALS: BP 159/85
[2021-03-18 03:26] VITALS: BP 128/80
[2021-03-18] MEDS: PIPERACILLIN/TAZOBACTAM 2.25 GM in IV NORMAL SALINE 50ML 50 ML IV SCH ×4 (05:05→23:53)
[2021-03-18 07:00] VITALS: BP 152/91
--- NOTE | 2021-03-18 08:36 | PDOC ---
Infectious Disease Note Subjective: Subjective pt feels ok Vital Signs: Vital Signs Vital Signs Date Time Temp Pulse Resp B/P (MAP) Pulse Ox O2 Delivery O2 Flow Rate FiO2 03/18/21 07:00 98.2 69 16 152/91 (111) 94 Room Air 98.2 Physical Exam: PHYSICAL EXAM GENERAL: AXOX3 female in nad HEENT: Normocephalic, atraumatic. Anicteric. Oral mucosa moist. NECK: Supple. LUNGS: Clear bilaterally. HEART: S1, S2. ABDOMEN: Soft, nontender, bowel sounds present. EXTREMITIES: Right lower extremity has edema, 1-2+ edema of the left lower extremity. There is an open wound with sinus tract on the superior aspect on the left lateral leg, mild surrounding erythema and slight warmth. No gross purulence noted. No drainage noted. Dorsalis pedis palpable. No cyanosis, no clubbing. DERMATOLOGIC: Warm, dry, no generalized rash except for above. NEUROLOGIC: Alert, oriented x 3, grossly nonfocal. PSYCHIATRIC: Calm and cooperative.. Medications: Inpatient Meds: Medications reviewed. Labs: Lab PATIENT: JACKIE GROVES ACCOUNT: [id number] : 1935 LOCATION: [address] [place] [address] AGE: 86 SEX: F EXAM STATUS: ADM IN ORD. PHYSICIAN: LORRAINE JOHNSON MD REASON: concern for osteomyelitis,lower leg wound lateral side, 15ML CLARISCAN PROCEDURE: MRI LOWER EXTREMITY LT W/CONT EXAMINATION: MRI LEFT LEG WITH IV CONTRAST CLINICAL HISTORY: Lateral left lower leg wound, concern for osteomyelitis TECHNIQUE: Multiplanar multisequential images obtained through the distal left leg with intravenous contrast. COMPARISON: None FINDINGS: 2.1 x 0.8 x 0.3 cm ulcer along the lateral aspect of the mid to distal leg with 2.2 x 0.6 x 3.2 cm subcutaneous abscess extending posteriorly and distally from the ulcer. Surrounding skin thickening and subcutaneous edema. Near diffuse reactive muscular edema in the leg at this level. Tendons intact. Partially visualized fibular endosteal and periosteal edema, compatible with a stress response. No medullary edema with corresponding T1 marrow signal abnormality to suggest osteomyelitis. No evidence of acute fracture. IMPRESSION: Ulcer along the lateral leg with subjacent small subcutaneous abscess and soft tissue changes compatible with cellulitis. Findings compatible with stress response in the fibula, only partially visualized. No evidence of osteomyelitis. Micro RUN DATE: 03/17/21 [facility] *LIVE* PAGE 1 RUN TIME: 826 Specimen Inquiry PATIENT: JACKIE GROVES ACCT: [id number] LOC: [address] [place] [address] U: [id number] AGE/SX: 86/F ROOM: 408 RE03/14/[address]: ELI ROSALES MD : 1935 BED: 1 DIS: STATUS: ADM IN TLOC: SPEC #: [id number] JASMIN: 03/14/21 STATUS: RES REQ #: [id number] RECD: 03/14/[address]: ELI ROSALES MD SOURCE: LEG ENTR: 03/14/[address]: EZRA RUIZ MD SPDESC: WOUND KATHARINE,STACEY PHAN MD ORDERED: ANAER/AEROB/GS COMMENTS: LEFT LOWER LEG WOUND Procedure Result ------ ------ GRAM STAIN Final Final GRAM NEGATIVE RODS:FEW GRAM POSITIVE COCCI:RARE SQUAMOUS EPI CELL:NONE SEEN PMN (WBCs):MODERATE Unless otherwise specified, Testing Performed by: [address] [address] For Inquires, the Physician may contact the Microbiology department at [phone] ANAEROBIC-AEROBIC CULTURE Preliminary Preliminary MIXED AEROBIC AND ANAEROBIC TUCKER on 03/16/21 at 1359 INCLUDING: MANY [PROTEUS MIRABILIS] MANY [ENTEROCOCCUS FAECALIS] MANY [PORPHYROMONAS SOMERAE] PROTEUS MIRABILIS ENTEROCOCCUS FAECALIS PORPHYROMONAS SOMERAE ANTIMICROBIAL SUSCEPTIBILITY Preliminary Comment Comment NEG ROSA 56 PROTEUS MIRABILIS ANTIBIOTIC RESULT INTERPRETATION AMPICILLIN/SULBACTAM <=4/2 S AMIKACIN <=16 S AMPICILLIN <=8 S AMOXICILLIN/K CLAVULANATE <=8/4 S AZTREONAM <=4 S CEFTRIAXONE <=1 S CEFTAZIDIME <=1 S CEFOTAXIME <=2 S RUN DATE: 03/17/21 [facility] *LIVE* PAGE 2 RUN TIME: 826 Specimen Inquiry SPEC: [id number] PATIENT: JACKIE GROVES [id number] (Continued) Procedure Result - CONTINUED ON NEXT PAGE RUN DATE: 03/17/21 [facility] *LIVE* PAGE 3 RUN TIME: 826 Specimen Inquiry SPEC: [id number] PATIENT: LUCRETIA GROVESCARRI King [id number] (Continued) Procedure Result ANTIMICROBIAL SUSCEPTIBILITY Preliminary (continued) CEFOXITIN <=8 S CEFAZOLIN <=2 S CIPROFLOXACIN <=0.25 S CEFEPIME <=2 S CEFUROXIME <=4 S CEFTAZIDIME/AVIBACTAM <=4 S ERTAPENEM <=0.5 S GENTAMICIN <=2 S LEVOFLOXACIN <=0.5 S MEROPENEM <=1 S PIPERACILLIN/TAZOBACTAM <=8 S TRIMETHOPRIM/SULFAMETHOXAZOLE <=0.5/9.5 S TETRACYCLINE >8 R TOBRAMYCIN <=2 S Streptomycin Synergy Screen S Gentamicin Synergy Screen S POS ROSA TYPE 38 ENTEROCOCCUS FAECALIS ANTIBIOTIC RESULT INTERPRETATION AMPICILLIN <=2 S DAPTOMYCIN 1 S LINEZOLID 2 S PENICILLIN 2 S VANCOMYCIN 1 S Unless otherwise specified, Testing Performed by: [address] [address] For Inquires, the Physician may contact the Microbiology department at [phone] Objective: Assessment: 1. Chronic nonhealing left lateral leg wound, cellulitis and possible subcutaneous abscess distal to ulcer, MRI neg for OM 3. Chronic kidney disease, 4. Parkinson's. 5. History of bilateral DVT. Plan: Plan of Care 1. Continue linezolid and Zosyn. 2 MRI of the left lower extremity results reviewed 3. Vascular team is following 4. Continue local wound care as directed. 5. Monitor labs and cultures. 6. Continue supportive care. Discussed with nursing staff. TRAV IBARRA MD Mar 18, 2021 08:36
[2021-03-18] MEDS: APIXABAN 2.5 MG TABLET. PO SCH ×2 (08:54→21:45)
[2021-03-18] MEDS: CARBIDOPA/LEVODOPA CR 25/100MG TABLET.SA. PO SCH ×3 (08:54→21:45)
[2021-03-18] MEDS: LACTOBACILLUS RHAMNOSUS GG 1 CAPSULE. PO SCH ×2 (08:54→21:45)
[2021-03-18] MEDS: FERROUS SULFATE 325 MG TABLET. PO SCH (08:55)
[2021-03-18] MEDS: CHOLECALCIFEROL (VITAMIN D3) 1,000 UNIT TABLET PO SCH (08:55)
[2021-03-18] MEDS: FUROSEMIDE 20 MG TABLET PO SCH (08:55)
[2021-03-18] MEDS: PRAMIPEXOLE 0.25 MG TABLET. PO SCH ×3 (09:58→21:45)
--- NOTE | 2021-03-18 10:59 | PDOC ---
PROGRESS NOTES Date of Service DATE: 03/18/21 TIME: 10:57 Subjective Subjective MRI of LLE neg for osteomyelitis. says she had diarrhea last night. nurse not aware. has to have a BM now. Objective Objective Vital Signs Date Time Temp Pulse Resp B/P (MAP) Pulse Ox O2 Delivery O2 Flow Rate FiO2 03/18/21 08:56 69 152/91 03/18/21 08:00 Room Air 03/18/21 07:00 98.2 16 94 98.2 Intake and Output 03/18/21 07:00 Intake Total 890 ml Balance 890 ml Intake Oral 540 ml IV Total 350 ml # Voids 5 # Bowel Movements 2 Physical Exam Abdomen: Soft Heart: Regular rate, Normal S1, Normal S2 Extremities: No edema General: Alert HEENT: Atraumatic Lungs: Clear to auscultation Neuro: Normal speech Psych/Mental Status: Mood NL Skin: No rashes, Other (dressing LLE) Assessment Assessment Problems 2. Left calf wound which overlies the distal left fibula. wound cultures grew Proteus and enterococcus. MRI neg for osteomyelitis 3. Chronic kidney disease stage 3. 4. Chronic venous insufficiency of the legs. 5. Parkinson's disease. 6. Anemia of chronic disease. 7. 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 Medical Problems: (1) Osteomyelitis Status: Acute Plan Plan of Care continue wound care continue zyvox and zosyn PT and OT continue sinemet and mirapex Comment Review of Relevant I have reviewed the following items cathleen (where applicable) has been applied. Labs Laboratory Tests Test 03/17/21 06:00 White Blood Count 5.6 x10^3/uL (4.0-11.0) Red Blood Count 4.02 x10^6/uL (3.50-5.40) Hemoglobin 8.2 g/dL (12.0-15.5) Hematocrit 25.4 % (36.0-47.0) Mean Corpuscular Volume 63 fL (79-100) Mean Corpuscular Hemoglobin 20 pg (25-35) Mean Corpuscular Hemoglobin Concent 32 g/dL (31-37) Red Cell Distribution Width 18.0 % (11.5-14.5) Platelet Count 282 x10^3/uL (140-400) Neutrophils (%) (Auto) 51 % (31-73) Lymphocytes (%) (Auto) 35 % (24-48) Monocytes (%) (Auto) 5 % (0-9) Eosinophils (%) (Auto) 8 % (0-3) Basophils (%) (Auto) 1 % (0-3) Neutrophils # (Auto) 2.8 x10^3/uL (1.8-7.7) Lymphocytes # (Auto) 1.9 x10^3/uL (1.0-4.8) Monocytes # (Auto) 0.3 x10^3/uL (0.0-1.1) Eosinophils # (Auto) 0.4 x10^3/uL (0.0-0.7) Basophils # (Auto) 0.1 x10^3/uL (0.0-0.2) Sodium Level 141 mmol/L (136-145) Potassium Level 4.0 mmol/L (3.5-5.1) Chloride Level 106 mmol/L (98-107) Carbon Dioxide Level 26 mmol/L (21-32) Anion Gap 9 (6-14) Blood Urea Nitrogen 18 mg/dL (7-20) Creatinine 1.5 mg/dL (0.6-1.0) Estimated GFR (Cockcroft-Gault) 39.8 Glucose Level 67 mg/dL (70-99) Calcium Level 8.6 mg/dL (8.5-10.1) Microbiology 03/14/21 Blood Culture - Preliminary, Resulted NO GROWTH AFTER 3 DAYS 03/14/21 Gram Stain - Final, Resulted 03/14/21 Aerobic and Anaerobic Culture - Preliminary, Resulted 03/14/21 Antimicrobic Susceptibility - Preliminary, Resulted Medications Current Medications Vancomycin HCl 1.5 gm/Sodium Chloride 500 ml @ 250 mls/hr 1X ONCE IV ; Start 03/14/21 at 11:45; Stop 03/14/21 at 11:35; Status DC Ceftriaxone Sodium (Rocephin) 1 gm 1X ONCE IVP Last administered on 03/14/21at 11:30; Start 03/14/21 at 11:45; Stop 03/14/21 at 11:35; Status DC Piperacillin Sod/ Tazobactam Sod 4.5 gm/Sodium Chloride 100 ml @ 200 mls/hr 1X ONCE IV Last administered on 03/14/21at 11:52; Start 03/14/21 at 12:00; Stop 03/14/21 at 12:29; Status DC Linezolid/Dextrose 300 ml @ 300 mls/hr Q12HR IV Last administered on 03/18/21at 08:56; Start 03/14/21 at 13:00 Piperacillin Sod/ Tazobactam Sod 3.375 gm/Sodium Chloride 50 ml @ 100 mls/hr Q6HRS IV Last administered on 03/15/21at 05:06; Start 03/14/21 at 18:00; Stop 03/15/21 at 09:35; Status DC Acetaminophen (Tylenol) 650 mg PRN Q6HRS PRN PO MILD PAIN / TEMP > 100.3'F Last administered on 03/16/21at 20:02; Start 03/14/21 at 16:00 Carbidopa/Levodopa (Sinemet Cr) 2 tab.sa TID PO Last administered on 03/18/21at 08:54; Start 03/14/21 at 14:00 Apixaban (Eliquis) 2.5 mg BID PO Last administered on 03/18/21at 08:54; Start 03/14/21 at 21:00 Ferrous Sulfate (Feosol) 325 mg DAILYWBKFT PO Last administered on 03/18/21at 08:55; Start 03/15/21 at 08:00 Furosemide (Lasix) 20 mg DAILY PO Last administered on 03/18/21at 08:55; Start 03/15/21 at 09:00 Vitamin D (Vitamin D3) 1,000 unit DAILY PO Last administered on 03/18/21at 08:55; Start 03/15/21 at 09:00 Pramipexole Dihydrochloride (miraPEX) 0.5 mg [id number] PO Last administered on at 09:58; Start 03/14/21 at 16:30 Magnesium Hydroxide (Milk Of Magnesia) 2,400 mg PRN DAILY PRN PO CONSTIPATION; Start 03/14/21 at 16:00 Piperacillin Sod/ Tazobactam Sod (Zosyn Per Pharmacy) 1 each PRN DAILY PRN MC SEE COMMENTS; Start 03/14/21 at 16:15 Piperacillin Sod/ Tazobactam Sod 2.25 gm/Sodium Chloride 50 ml @ 100 mls/hr Q6HRS IV Last administered on 03/18/21at 05:05; Start 03/15/21 at 12:00 Lactobacillus Rhamnosus (Culturelle) 1 cap BID PO Last administered on 03/18/21at 08:54; Start 03/16/21 at 21:00 Gadoterate Meglumine (Clariscan) 15 ml 1X ONCE IVP Last administered on 03/17/21at 09:25; Start 03/17/21 at 09:30; Stop 03/17/21 at 09:31; Status DC Amlodipine Besylate (Norvasc) 2.5 mg DAILY PO Last administered on 03/18/21at 08:56; Start 03/17/21 at 11:00 Active Scripts Active Furosemide 20 Mg Tablet 20 Mg PO DAILY Eliquis (Apixaban) 5 Mg Tablet 5 Mg PO BID [Fluconazole] 100 MG Tablet 100 Mg PO DAILY 5 Days Zyvox (Linezolid) 600 Mg Tablet 600 Mg PO BID 5 Days Zosyn 2.25 Gm Pre-Mix Bag (Fdnwrsvlgifh-Jzib-Kpfhprlw,Iso) 2.25 Gm/50 Ml Froz.piggy 2.25 Gm IV Q6HRS 5 Days Hydrocodone-Acetamin 5-325 mg (Hydrocodone/Acetaminophen) 1 Each Tablet 1 Each PO Q6HRS PRN Culturelle (Lactobacillus Rhamnosus Gg) 1 Each Cap.sprink 1 Cap PO BID 10 Days Acetaminophen 500 Mg Tablet 500 Mg PO PRN Q4HRS PRN Reported Mirapex (Pramipexole Di-Hcl) 0.25 Mg Tablet 0.5 Mg PO TID Vitamin D3 (Cholecalciferol (Vitamin D3)) 1,000 Unit Tablet 1,000 Unit PO DAILY Sinemet Cr 50-200 Tablet (Carbidopa/Levodopa) 1 Each Tablet.er 1 Tab PO TID Vitals/I & O Vital Sign - Last 24 Hours 03/17/21 03/17/21 03/17/21 03/17/21 11:29 13:24 14:52 19:45 Temp 98.1 97.4 97.5 98.1 97.4 97.5 Pulse 67 100 102 87 Resp 18 18 16 B/P (MAP) 146/75 (98) 126/84 121/73 (89) 138/83 (101) Pulse Ox 97 97 90 O2 Delivery Room Air Room Air Room Air 03/17/21 03/17/21 03/18/21 03/18/21 20:00 22:33 03:26 07:00 Temp 97.6 97.4 98.2 97.6 97.4 98.2 Pulse 98 91 69 Resp 16 16 16 B/P (MAP) 159/85 (109) 128/80 (96) 152/91 (111) Pulse Ox 99 99 94 O2 Delivery Room Air Room Air Room Air Room Air 03/18/21 03/18/21 08:00 08:56 Pulse 69 B/P (MAP) 152/91 O2 Delivery Room Air Intake and Output 03/17/21 03/17/21 03/18/21 15:00 23:00 07:00 Intake Total 550 ml 240 ml 100 ml Balance 550 ml 240 ml 100 ml Justifications for Admission Other Justification Nutrition Consultation Dietary Evaluation: Recommendations by RD: Dietary education by RD, Increase Calorie Intake, Protein supplementation Comments: regular ensure enlive bid REC mvi and vit c per wound protocal Expected Outcomes/Goals: to meet >75% est nutr needs improved wound status Interpretation of weight loss: >7.5% in 3 months Malnutrition Findings: Food and Nutrition Intake (Mod: <75% est energy req 7days Weight Status: Overweight ELI ROSALES MD Mar 18, 2021 10:59
[2021-03-18 11:00] VITALS: BP 135/80
--- NOTE | 2021-03-18 12:01 | PDOC ---
PROGRESS NOTES Date of Service DATE: 03/18/21 TIME: 11:59 Subjective Subjective Patient was seen resting comfortably in bed. She relates occasional constrictive sensation and throbbing pain to the left ankle and lower extremity with motions and pressure. Otherwise, she denies any constitutional symptoms. She has been tolerating IV antibiotics, dressing change twice daily well. 24-hour events: MRI returned negative for osteomyelitis, positive for soft tissue abscess distal and posterior to the fibula ulcer. Objective Objective Vital Signs Date Time Temp Pulse Resp B/P (MAP) Pulse Ox O2 Delivery O2 Flow Rate FiO2 03/18/21 08:56 69 152/91 03/18/21 08:00 Room Air 03/18/21 07:00 98.2 16 94 98.2 Intake and Output 03/18/21 07:00 Intake Total 890 ml Balance 890 ml Intake Oral 540 ml IV Total 350 ml # Voids 5 # Bowel Movements 2 Physical Exam Physical Exam General: AOx3, pleasant without distress Left lower extremity focused Dermatology: -Full-thickness ulcer to the lateral distal fibula shaft. The wound base is 90% granular and 10% fibrotic with minimal undermining without streaking, purulence discharge. Periwound is severely erythematous and edematous involving the entire tib-fib almost. Neurology: -Hypersensitivity to the lateral fibula -Diminished to light touch sensation to digits 1 through 5 Vascular: -DP PT palpable -Foot is warm to touch -CFT less than 3 seconds Musculoskeletal: -TTP at distal fibula where the wound is -Calf is soft however tender -Able to move digits and ankle -Passive ankle and knee range of motion was smooth without crepitus or pain -Popliteal lymph nodes are not tender on palpation Diagnosis DIAGNOSIS Cellulitis, soft tissue abscess in the setting of a chronic fibular full- thickness wound without sepsis Assessment Assessment Problems Medical Problems: (1) Osteomyelitis Status: Acute Plan Plan of Care -Explained MRI findings to patient. And informed the patient that there is no concern of bone infection underlying the leg ulcer -Remain aleukocytosis -Per ID, patient is currently on linezolid and Zosyn -Blood culture 03/14 no growth to date -Wound culture 03/14: Proteus, Enterococci, Porphyromonas, GPC -Continue with twice daily dressing change with Betadine wet-to-dry -Reduce weightbearing activity to the left lower extremity, PT eval and treat -The MRI was limited to the distal tib-fib. Given the calf tenderness, swelling, not be a bad idea to order an ultrasound for DVT rule out -MRI remarked soft tissue abscess in close proximity to the full-thickness fibular ulcer. Pending vascular surgery evaluation and recommendation. I will be available for surgical I&D/inpatient consult assistance as needed. Comment Review of Relevant I have reviewed the following items cathleen (where applicable) has been applied. Labs Laboratory Tests Test 03/17/21 06:00 White Blood Count 5.6 x10^3/uL (4.0-11.0) Red Blood Count 4.02 x10^6/uL (3.50-5.40) Hemoglobin 8.2 g/dL (12.0-15.5) Hematocrit 25.4 % (36.0-47.0) Mean Corpuscular Volume 63 fL (79-100) Mean Corpuscular Hemoglobin 20 pg (25-35) Mean Corpuscular Hemoglobin Concent 32 g/dL (31-37) Red Cell Distribution Width 18.0 % (11.5-14.5) Platelet Count 282 x10^3/uL (140-400) Neutrophils (%) (Auto) 51 % (31-73) Lymphocytes (%) (Auto) 35 % (24-48) Monocytes (%) (Auto) 5 % (0-9) Eosinophils (%) (Auto) 8 % (0-3) Basophils (%) (Auto) 1 % (0-3) Neutrophils # (Auto) 2.8 x10^3/uL (1.8-7.7) Lymphocytes # (Auto) 1.9 x10^3/uL (1.0-4.8) Monocytes # (Auto) 0.3 x10^3/uL (0.0-1.1) Eosinophils # (Auto) 0.4 x10^3/uL (0.0-0.7) Basophils # (Auto) 0.1 x10^3/uL (0.0-0.2) Sodium Level 141 mmol/L (136-145) Potassium Level 4.0 mmol/L (3.5-5.1) Chloride Level 106 mmol/L (98-107) Carbon Dioxide Level 26 mmol/L (21-32) Anion Gap 9 (6-14) Blood Urea Nitrogen 18 mg/dL (7-20) Creatinine 1.5 mg/dL (0.6-1.0) Estimated GFR (Cockcroft-Gault) 39.8 Glucose Level 67 mg/dL (70-99) Calcium Level 8.6 mg/dL (8.5-10.1) Microbiology 03/14/21 Blood Culture - Preliminary, Resulted NO GROWTH AFTER 3 DAYS 03/14/21 Gram Stain - Final, Resulted 03/14/21 Aerobic and Anaerobic Culture - Preliminary, Resulted 03/14/21 Antimicrobic Susceptibility - Preliminary, Resulted Medications Current Medications Vancomycin HCl 1.5 gm/Sodium Chloride 500 ml @ 250 mls/hr 1X ONCE IV ; Start 03/14/21 at 11:45; Stop 03/14/21 at 11:35; Status DC Ceftriaxone Sodium (Rocephin) 1 gm 1X ONCE IVP Last administered on 03/14/21at 11:30; Start 03/14/21 at 11:45; Stop 03/14/21 at 11:35; Status DC Piperacillin Sod/ Tazobactam Sod 4.5 gm/Sodium Chloride 100 ml @ 200 mls/hr 1X ONCE IV Last administered on 03/14/21at 11:52; Start 03/14/21 at 12:00; Stop 03/14/21 at 12:29; Status DC Linezolid/Dextrose 300 ml @ 300 mls/hr Q12HR IV Last administered on 03/18/21at 08:56; Start 03/14/21 at 13:00 Piperacillin Sod/ Tazobactam Sod 3.375 gm/Sodium Chloride 50 ml @ 100 mls/hr Q6HRS IV Last administered on 03/15/21at 05:06; Start 03/14/21 at 18:00; Stop 03/15/21 at 09:35; Status DC Acetaminophen (Tylenol) 650 mg PRN Q6HRS PRN PO MILD PAIN / TEMP > 100.3'F Last administered on 03/16/21at 20:02; Start 03/14/21 at 16:00 Carbidopa/Levodopa (Sinemet Cr) 2 tab.sa TID PO Last administered on 03/18/21at 08:54; Start 03/14/21 at 14:00 Apixaban (Eliquis) 2.5 mg BID PO Last administered on 03/18/21at 08:54; Start 03/14/21 at 21:00 Ferrous Sulfate (Feosol) 325 mg DAILYWBKFT PO Last administered on 03/18/21at 08:55; Start 03/15/21 at 08:00 Furosemide (Lasix) 20 mg DAILY PO Last administered on 03/18/21 08:55; Start 03/15/21 at 09:00 Vitamin D (Vitamin D3) 1,000 unit DAILY PO Last administered on 03/18/21at 08:55; Start 03/15/21 at 09:00 Pramipexole Dihydrochloride (miraPEX) 0.5 mg [id number] PO Last administered on 03/18/21 09:58; Start 03/14/21 at 16:30 Magnesium Hydroxide (Milk Of Magnesia) 2,400 mg PRN DAILY PRN PO CONSTIPATION; Start 03/14/21 at 16:00 Piperacillin Sod/ Tazobactam Sod (Zosyn Per Pharmacy) 1 each PRN DAILY PRN MC SEE COMMENTS; Start 03/14/21 at 16:15 Piperacillin Sod/ Tazobactam Sod 2.25 gm/Sodium Chloride 50 ml @ 100 mls/hr Q6HRS IV Last administered on 03/18/21at 05:05; Start 03/15/21 at 12:00 Lactobacillus Rhamnosus (Culturelle) 1 cap BID PO Last administered on 03/18/21at 08:54; Start 03/16/21 at 21:00 Gadoterate Meglumine (Clariscan) 15 ml 1X ONCE IVP Last administered on 03/17/21at 09:25; Start 03/17/21 at 09:30; Stop 03/17/21 at 09:31; Status DC Amlodipine Besylate (Norvasc) 2.5 mg DAILY PO Last administered on 03/18/21at 08:56; Start 03/17/21 at 11:00 Active Scripts Active Furosemide 20 Mg Tablet 20 Mg PO DAILY Eliquis (Apixaban) 5 Mg Tablet 5 Mg PO BID [Fluconazole] 100 MG Tablet 100 Mg PO DAILY 5 Days Zyvox (Linezolid) 600 Mg Tablet 600 Mg PO BID 5 Days Zosyn 2.25 Gm Pre-Mix Bag (Usdtlzbzrpwr-Mupd-Andrxwjp,Iso) 2.25 Gm/50 Ml Froz.piggy 2.25 Gm IV Q6HRS 5 Days Hydrocodone-Acetamin 5-325 mg (Hydrocodone/Acetaminophen) 1 Each Tablet 1 Each PO Q6HRS PRN Culturelle (Lactobacillus Rhamnosus Gg) 1 Each Cap.sprink 1 Cap PO BID 10 Days Acetaminophen 500 Mg Tablet 500 Mg PO PRN Q4HRS PRN Reported Mirapex (Pramipexole Di-Hcl) 0.25 Mg Tablet 0.5 Mg PO TID Vitamin D3 (Cholecalciferol (Vitamin D3)) 1,000 Unit Tablet 1,000 Unit PO DAILY Sinemet Cr 50-200 Tablet (Carbidopa/Levodopa) 1 Each Tablet.er 1 Tab PO TID Vitals/I & O Vital Sign - Last 24 Hours 03/17/21 03/17/21 03/17/21 03/17/21 13:24 14:52 19:45 20:00 Temp 97.4 97.5 97.4 97.5 Pulse 100 102 87 Resp 18 16 B/P (MAP) 126/84 121/73 (89) 138/83 (101) Pulse Ox 97 90 O2 Delivery Room Air Room Air Room Air 03/17/21 03/18/21 03/18/21 03/18/21 22:33 03:26 07:00 08:00 Temp 97.6 97.4 98.2 97.6 97.4 98.2 Pulse 98 91 69 Resp 16 16 16 B/P (MAP) 159/85 (109) 128/80 (96) 152/91 (111) Pulse Ox 99 99 94 O2 Delivery Room Air Room Air Room Air Room Air 03/18/21 08:56 Pulse 69 B/P (MAP) 152/91 Intake and Output 03/17/21 03/17/21 03/18/21 15:00 23:00 07:00 Intake Total 550 ml 240 ml 100 ml Balance 550 ml 240 ml 100 ml Justifications for Admission Other Justification Nutrition Consultation Dietary Evaluation: Recommendations by RD: Dietary education by RD, Increase Calorie Intake, Protein supplementation Comments: regular ensure enlive bid REC mvi and vit c per wound protocal Expected Outcomes/Goals: to meet >75% est nutr needs improved wound status Interpretation of weight loss: >7.5% in 3 months Malnutrition Findings: Food and Nutrition Intake (Mod: <75% est energy req 7days Weight Status: Overweight HEATHER KOCH DPM Mar 18, 2021 12:01
--- NOTE | 2021-03-18 12:47 | RAD ---
EXAM: Left lower extremity venous Doppler sonogram. HISTORY: DVT. Pain and swelling. TECHNIQUE: Suárez scale and color Doppler sonographic evaluation of the left lower extremity veins with spectral waveform analysis was performed. FINDINGS: There is nonocclusive chronic appearing thrombus within the left common femoral and proxima l superficial femoral veins. There is occlusive thrombus within and the mid and distal aspects of 1 o f 2 superficial femoral veins. There is normal color flow, normal compressibility and there are gene l spectral waveforms in the remainder of the lower extremity veins. IMPRESSION: 1. Chronic appearing nonocclusive thrombus within the left common femoral and proximal superficial fe moral veins. 2. Occlusive thrombus within the mid and distal aspects of 1 of 2 superficial femoral veins. 3. These findings were described on a study performed 08/02/2020. Electronically signed by: Abbey Rowe MD (03/18/2021 12:45 PM) [id number]
--- NOTE | 2021-03-18 13:02 | PDOC ---
Provider Note Date of Service: DATE: 03/18/21 TIME: 12:53 Provider Note Provider Note Vascular S: Patient is sitting on the edge of bed eating her lunch. Patient complains of mild discomfort in her left leg. O: Awake and alert Vital signs stable, afebrile Left lower extremity with moderate swelling and erythema from foot to calf. Patient has venous stasis skin change in the calf. Small wound lateral leg, clean. There is undermining proximally within the wound. MRI IMPRESSION: Ulcer along the lateral leg with subjacent small subcutaneous abscess and soft tissue changes compatible with cellulitis. Findings compatible with stress response in the fibula, only partially visualized. No evidence of osteomyelitis. Venous US IMPRESSION: 1. Chronic appearing nonocclusive thrombus within the left common femoral and proximal superficial femoral veins. 2. Occlusive thrombus within the mid and distal aspects of 1 of 2 superficial femoral veins. 3. These findings were described on a study performed 08/02/2020. A/P: 86-year-old female with chronic venous insufficiency and left lateral leg ulcer. MRI does not suggest any osteomyelitis within the fibula. There is a subadjacent small subcutaneous abscess. Agree with Dr. Jin the patient would benefit from surgical debridement. The patient has palpable distal pulses, she should have adequate arterial circulation to heal the wound following debridement. Will defer to Dr. Jin. Patient has known history of left lower extremity deep vein thrombosis. US suggests chronic appearing thrombus in left CF and proximal superficial veins c onsistent with US performed in July. Patient is already on oral anticoagulation. Recommend left lower extremity leg elevation and compression. Justicifation of Admission Dx: Justifications for Admission: Justification of Admission Dx: Comment: Cellulitis: Cellulitis ISABELLE GONZALEZ MAKING MACHINE CATCHER Mar 18, 2021 13:02
[2021-03-18 15:00] VITALS: BP 158/90
[2021-03-18 19:00] VITALS: BP 137/78
[2021-03-18 23:08] VITALS: BP 144/80
[2021-03-19 03:11] VITALS: BP 132/72
[2021-03-19] MEDS: PIPERACILLIN/TAZOBACTAM 2.25 GM in IV NORMAL SALINE 50ML 50 ML IV SCH ×4 (05:16→23:34)
[2021-03-19] MEDS: ACETAMINOPHEN 325 MG TABLET. PO PRN (05:26)
[2021-03-19 07:00] VITALS: BP 130/76
[2021-03-19 07:45] LABS: BASO # 0.1 x10^3/uL (0.0-0.2); BASO % 2 % (0-3); EOS # 0.4 x10^3/uL (0.0-0.7); EOS % 8 % (0-3); HEMATOCRIT 25.2 % (36.0-47.0); HEMOGLOBIN 7.8 g/dL (12.0-15.5); LYMPH # 1.7 x10^3/uL (1.0-4.8); LYMPH % 32 % (24-48); MEAN CORPUSCULAR HEMOGLOBIN 20 pg (25-35); MEAN CORPUSCULAR HGB CONC 31 g/dL (31-37); MEAN CORPUSCULAR VOLUME 63 fL (79-100); MONO # 0.2 x10^3/uL (0.0-1.1); MONO % 5 % (0-9); NEUT # 2.7 x10^3/uL (1.8-7.7); NEUT % 53 % (31-73); PLATELET COUNT 276 x10^3/uL (140-400); RED BLOOD COUNT 4.01 x10^6/uL (3.50-5.40); RED CELL DISTRIBUTION WIDTH 18.1 % (11.5-14.5); WHITE BLOOD COUNT 5.1 x10^3/uL (4.0-11.0)
[2021-03-19 07:57] LABS: CALCIUM 8.7 mg/dL (8.5-10.1); CREATININE 1.5 mg/dL (0.6-1.0); GFR 39.8; POTASSIUM 3.9 mmol/L (3.5-5.1)
--- NOTE | 2021-03-19 08:03 | PDOC ---
Infectious Disease Note Subjective: Subjective pt feels ok still continues to have pain in the lt leg Has loose bm Vital Signs: Vital Signs Vital Signs Date Time Temp Pulse Resp B/P (MAP) Pulse Ox O2 Delivery O2 Flow Rate FiO2 03/19/21 03:11 97.7 86 18 132/72 (92) 98 Room Air 97.7 Physical Exam: PHYSICAL EXAM GENERAL: AXOX3 female in nad HEENT: Normocephalic, atraumatic. Anicteric. Oral mucosa moist. NECK: Supple. LUNGS: Clear bilaterally. HEART: S1, S2. ABDOMEN: Soft, nontender, bowel sounds present. EXTREMITIES: Right lower extremity has edema, 1-2+ edema of the left lower extremity. There is an open wound with sinus tract on the superior aspect on the left lateral leg, mild surrounding erythema and slight warmth. No gross purulence noted. No drainage noted. Dorsalis pedis palpable. No cyanosis, no clubbing. DERMATOLOGIC: Warm, dry, no generalized rash except for above. NEUROLOGIC: Alert, oriented x 3, grossly nonfocal. PSYCHIATRIC: Calm and cooperative.. Medications: Inpatient Meds: Medications reviewed. Labs: Lab Laboratory Tests Test 03/19/21 06:10 White Blood Count 5.1 x10^3/uL (4.0-11.0) Red Blood Count 4.01 x10^6/uL (3.50-5.40) Hemoglobin 7.8 g/dL (12.0-15.5) Hematocrit 25.2 % (36.0-47.0) Mean Corpuscular Volume 63 fL (79-100) Mean Corpuscular Hemoglobin 20 pg (25-35) Mean Corpuscular Hemoglobin Concent 31 g/dL (31-37) Red Cell Distribution Width 18.1 % (11.5-14.5) Platelet Count 276 x10^3/uL (140-400) Neutrophils (%) (Auto) 53 % (31-73) Lymphocytes (%) (Auto) 32 % (24-48) Monocytes (%) (Auto) 5 % (0-9) Eosinophils (%) (Auto) 8 % (0-3) Basophils (%) (Auto) 2 % (0-3) Neutrophils # (Auto) 2.7 x10^3/uL (1.8-7.7) Lymphocytes # (Auto) 1.7 x10^3/uL (1.0-4.8) Monocytes # (Auto) 0.2 x10^3/uL (0.0-1.1) Eosinophils # (Auto) 0.4 x10^3/uL (0.0-0.7) Basophils # (Auto) 0.1 x10^3/uL (0.0-0.2) Sodium Level 139 mmol/L (136-145) Potassium Level 3.9 mmol/L (3.5-5.1) Chloride Level 105 mmol/L (98-107) Carbon Dioxide Level 25 mmol/L (21-32) Anion Gap 9 (6-14) Blood Urea Nitrogen 17 mg/dL (7-20) Creatinine 1.5 mg/dL (0.6-1.0) Estimated GFR (Cockcroft-Gault) 39.8 Glucose Level 64 mg/dL (70-99) Calcium Level 8.7 mg/dL (8.5-10.1) Micro RUN DATE: 03/17/21 [facility] LAB *LIVE* PAGE 1 RUN TIME: 826 Specimen Inquiry PATIENT: JACKIE GROVES ACCT: [id number] LOC: [address] [place] [address] U: [id number] AGE/SX: 86/F ROOM: 408 RE03/14/[address]: ELI ROSALES MD : [id number] BED: 1 DIS: STATUS: ADM IN TLOC: SPEC #: [id number] JASMIN: 03/14/21 STATUS: RES REQ #: [id number] RECD: 03/14/[address] [facility] [address]: ELI ROSALES MD SOURCE: LEG ENTR: 03/14/[address]: EZRA RUIZ MD SPDESC: WOUND ELI ALCANTAR,STACEY Garcia MD ORDERED: BAM/AEROB/JESSA COMMENTS: LEFT LOWER LEG WOUND Procedure Result GRAM STAIN Final Final GRAM NEGATIVE RODS:FEW GRAM POSITIVE COCCI:RARE SQUAMOUS EPI CELL:NONE SEEN PMN (WBCs):MODERATE Unless otherwise specified, Testing Performed by: [address] [address] For Inquires, the Physician may contact the Microbiology department at [phone] ANAEROBIC-AEROBIC CULTURE Preliminary Preliminary MIXED AEROBIC AND ANAEROBIC TUCKER on 03/16/21 at 1351 INCLUDING: MANY [PROTEUS MIRABILIS] MANY [ENTEROCOCCUS FAECALIS] MANY [PORPHYROMONAS SOMERAE] PROTEUS MIRABILIS ENTEROCOCCUS FAECALIS PORPHYROMONAS SOMERAE ANTIMICROBIAL SUSCEPTIBILITY Preliminary Comment Comment NEG ROSA 56 PROTEUS MIRABILIS ANTIBIOTIC RESULT INTERPRETATION AMPICILLIN/SULBACTAM <=4/2 S AMIKACIN <=16 S AMPICILLIN <=8 S AMOXICILLIN/K CLAVULANATE <=8/4 S AZTREONAM <=4 S CEFTRIAXONE <=1 S CEFTAZIDIME <=1 S CEFOTAXIME <=2 S RUN DATE: 03/17/21 [facility] LAB *LIVE* PAGE 2 RUN TIME: 08 Specimen Inquiry SPEC: [id number] PATIENT: JACKIE GROVES Christine [id number] (Continued) Procedure Result CONTINUED ON NEXT PAGE RUN DATE: 03/17/21 [facility] LAB *LIVE* PAGE 3 RUN TIME: 0827 Specimen Inquiry SPEC: [id number] PATIENT: ANNE GROVESJose King [id number] (Continued) --- --------- Procedure Result ANTIMICROBIAL SUSCEPTIBILITY Preliminary (continued) CEFOXITIN <=8 S CEFAZOLIN <=2 S CIPROFLOXACIN <=0.25 S CEFEPIME <=2 S CEFUROXIME <=4 S CEFTAZIDIME/AVIBACTAM <=4 S ERTAPENEM <=0.5 S GENTAMICIN <=2 S LEVOFLOXACIN <=0.5 S MEROPENEM <=1 S PIPERACILLIN/TAZOBACTAM <=8 S TRIMETHOPRIM/SULFAMETHOXAZOLE <=0.5/9.5 S TETRACYCLINE >8 R TOBRAMYCIN <=2 S Streptomycin Synergy Screen S Gentamicin Synergy Screen S POS ROSA TYPE 38 ENTEROCOCCUS FAECALIS ANTIBIOTIC RESULT INTERPRETATION AMPICILLIN <=2 S DAPTOMYCIN 1 S LINEZOLID 2 S PENICILLIN 2 S VANCOMYCIN 1 S Unless otherwise specified, Testing Performed by: [address] [address] For Inquires, the Physician may contact the Microbiology department at [phone] Objective: Assessment: 1. Chronic nonhealing left lateral leg wound, cellulitis and subcutaneous abscess distal to ulcer, MRI neg for OM. Swab cultures positive for Enterococcus faecalis, Proteus, PORPHYROMONAS SOMERAE 3. Chronic kidney disease, 4. Parkinson's. 5. History of bilateral DVT. Plan: Plan of Care 1. Continue linezolid and Zosyn. 2 MRI of the left lower extremity results reviewed, no osteomyelitis. Abscess below ulcer site. 3. Vascular team is following. Podiatry following. Plans for debridement noted. Send intraoperative fluid/tissue for cultures 4. Continue local wound care as directed. 5. Monitor labs and cultures. 6. Continue supportive care. 7. Cdiff if diarrhea continues Discussed with nursing staff. TRAV IBARRA MD Mar 19, 2021 08:03
[2021-03-19] MEDS: PRAMIPEXOLE 0.25 MG TABLET. PO SCH ×3 (08:37→20:51)
[2021-03-19] MEDS: CHOLECALCIFEROL (VITAMIN D3) 1,000 UNIT TABLET PO SCH (08:37)
[2021-03-19] MEDS: CARBIDOPA/LEVODOPA CR 25/100MG TABLET.SA. PO SCH ×3 (08:37→20:52)
[2021-03-19] MEDS: APIXABAN 2.5 MG TABLET. PO SCH (08:38)
[2021-03-19] MEDS: FERROUS SULFATE 325 MG TABLET. PO SCH (08:38)
[2021-03-19] MEDS: FUROSEMIDE 20 MG TABLET PO SCH (08:38)
[2021-03-19] MEDS: LACTOBACILLUS RHAMNOSUS GG 1 CAPSULE. PO SCH ×2 (08:39→20:51)
--- NOTE | 2021-03-19 08:56 | PDOC ---
PROGRESS NOTES Date of Service DATE: 03/19/21 TIME: 08:53 Subjective Subjective Patient was seen at bedside resting comfortably. She denies pain currently at rest to the left lower extremity. She continues to deny any constitutional symptoms. She is tolerating the antibiotic therapy well without any adverse r eaction. Over 24-hour events: Vascular remarked adequate inflow to the left lower extremity and cleared patient for surgical I&D Surveillance deep venous ultrasound suggested unchanged and chronic DVT to the superficial femoral vein Objective Objective Vital Signs Date Time Temp Pulse Resp B/P (MAP) Pulse Ox O2 Delivery O2 Flow Rate FiO2 03/19/21 08:38 78 130/76 03/19/21 07:00 98.0 18 97 Room Air 98.0 Intake and Output 03/19/21 07:00 Intake Total 720 ml Balance 720 ml Intake Oral 320 ml IV Total 400 ml # Voids 3 # Bowel Movements 1 Physical Exam Physical Exam General: AOx3, pleasant without distress Left lower extremity focused Dermatology: -Full-thickness ulcer to the lateral distal fibula shaft. The wound base is 90% granular and 10% fibrotic with minimal undermining without streaking, purulence discharge. Periwound is severely erythematous and edematous involving the entire tib-fib almost. Neurology: -Hypersensitivity to the lateral fibula -Diminished to light touch sensation to digits 1 through 5 Vascular: -DP PT palpable -Foot is warm to touch -CFT less than 3 seconds Musculoskeletal: -TTP at distal fibula where the wound is -Calf is soft however tender -Able to move digits and ankle -Passive ankle and knee range of motion was smooth without crepitus or pain -Popliteal lymph nodes are not tender on palpation Assessment Assessment Problems Medical Problems: (1) Osteomyelitis Status: Acute Plan Plan of Care -Explained MRI findings to patient. A subcutaneous abscess was noted adjacent to the open full-thickness ulcer without underlying osseous infection. Vascular surgery remarked sufficient vascular inflow for wound healing and recommended a surgical incision and drainage. -Deep venous ultrasound 03/18 remarked chronic and unchanged DVT to the superficial femoral vein. Patient is currently on Eliquis -Remain aleukocytosis -Per ID, patient is currently on linezolid and Zosyn -Blood culture 03/14 no growth to date -Wound culture 03/14: Proteus, Enterococci, Porphyromonas, GPC -Continue with twice daily dressing change with Betadine wet-to-dry -Reduce weightbearing activity to the left lower extremity, PT eval and treat -N.p.o. after midnight in preparation for surgical incision and drainage, possible wound VAC application on 03/20 Comment Review of Relevant I have reviewed the following items cathleen (where applicable) has been applied. Labs Laboratory Tests Test 03/19/21 06:10 White Blood Count 5.1 x10^3/uL (4.0-11.0) Red Blood Count 4.01 x10^6/uL (3.50-5.40) Hemoglobin 7.8 g/dL (12.0-15.5) Hematocrit 25.2 % (36.0-47.0) Mean Corpuscular Volume 63 fL (79-100) Mean Corpuscular Hemoglobin 20 pg (25-35) Mean Corpuscular Hemoglobin Concent 31 g/dL (31-37) Red Cell Distribution Width 18.1 % (11.5-14.5) Platelet Count 276 x10^3/uL (140-400) Neutrophils (%) (Auto) 53 % (31-73) Lymphocytes (%) (Auto) 32 % (24-48) Monocytes (%) (Auto) 5 % (0-9) Eosinophils (%) (Auto) 8 % (0-3) Basophils (%) (Auto) 2 % (0-3) Neutrophils # (Auto) 2.7 x10^3/uL (1.8-7.7) Lymphocytes # (Auto) 1.7 x10^3/uL (1.0-4.8) Monocytes # (Auto) 0.2 x10^3/uL (0.0-1.1) Eosinophils # (Auto) 0.4 x10^3/uL (0.0-0.7) Basophils # (Auto) 0.1 x10^3/uL (0.0-0.2) Sodium Level 139 mmol/L (136-145) Potassium Level 3.9 mmol/L (3.5-5.1) Chloride Level 105 mmol/L (98-107) Carbon Dioxide Level 25 mmol/L (21-32) Anion Gap 9 (6-14) Blood Urea Nitrogen 17 mg/dL (7-20) Creatinine 1.5 mg/dL (0.6-1.0) Estimated GFR (Cockcroft-Gault) 39.8 Glucose Level 64 mg/dL (70-99) Calcium Level 8.7 mg/dL (8.5-10.1) Laboratory Tests Test 03/19/21 06:10 White Blood Count 5.1 x10^3/uL (4.0-11.0) Red Blood Count 4.01 x10^6/uL (3.50-5.40) Hemoglobin 7.8 g/dL (12.0-15.5) Hematocrit 25.2 % (36.0-47.0) Mean Corpuscular Volume 63 fL (79-100) Mean Corpuscular Hemoglobin 20 pg (25-35) Mean Corpuscular Hemoglobin Concent 31 g/dL (31-37) Red Cell Distribution Width 18.1 % (11.5-14.5) Platelet Count 276 x10^3/uL (140-400) Neutrophils (%) (Auto) 53 % (31-73) Lymphocytes (%) (Auto) 32 % (24-48) Monocytes (%) (Auto) 5 % (0-9) Eosinophils (%) (Auto) 8 % (0-3) Basophils (%) (Auto) 2 % (0-3) Neutrophils # (Auto) 2.7 x10^3/uL (1.8-7.7) Lymphocytes # (Auto) 1.7 x10^3/uL (1.0-4.8) Monocytes # (Auto) 0.2 x10^3/uL (0.0-1.1) Eosinophils # (Auto) 0.4 x10^3/uL (0.0-0.7) Basophils # (Auto) 0.1 x10^3/uL (0.0-0.2) Sodium Level 139 mmol/L (136-145) Potassium Level 3.9 mmol/L (3.5-5.1) Chloride Level 105 mmol/L (98-107) Carbon Dioxide Level 25 mmol/L (21-32) Anion Gap 9 (6-14) Blood Urea Nitrogen 17 mg/dL (7-20) Creatinine 1.5 mg/dL (0.6-1.0) Estimated GFR (Cockcroft-Gault) 39.8 Glucose Level 64 mg/dL (70-99) Calcium Level 8.7 mg/dL (8.5-10.1) Microbiology 03/14/21 Blood Culture - Preliminary, Resulted NO GROWTH AFTER 4 DAYS 03/14/21 Gram Stain - Final, Resulted 03/14/21 Aerobic and Anaerobic Culture - Preliminary, Resulted 03/14/21 Antimicrobic Susceptibility - Preliminary, Resulted Medications Current Medications Vancomycin HCl 1.5 gm/Sodium Chloride 500 ml @ 250 mls/hr 1X ONCE IV ; Start 03/14/21 at 11:45; Stop 03/14/21 at 11:35; Status DC Ceftriaxone Sodium (Rocephin) 1 gm 1X ONCE IVP Last administered on 03/14/21at 11:30; Start 03/14/21 at 11:45; Stop 03/14/21 at 11:35; Status DC Piperacillin Sod/ Tazobactam Sod 4.5 gm/Sodium Chloride 100 ml @ 200 mls/hr 1X ONCE IV Last administered on 03/14/21at 11:52; Start 03/14/21 at 12:00; Stop 03/14/21 at 12:29; Status DC Linezolid/Dextrose 300 ml @ 300 mls/hr Q12HR IV Last administered on 03/19/21at 08:42; Start 03/14/21 at 13:00 Piperacillin Sod/ Tazobactam Sod 3.375 gm/Sodium Chloride 50 ml @ 100 mls/hr Q6HRS IV Last administered on 03/15/21at 05:06; Start 03/14/21 at 18:00; Stop 03/15/21 at 09:35; Status DC Acetaminophen (Tylenol) 650 mg PRN Q6HRS PRN PO MILD PAIN / TEMP > 100.3'F Last administered on 03/19/21at 05:26; Start 03/14/21 at 16:00 Carbidopa/Levodopa (Sinemet Cr) 2 tab.sa TID PO Last administered on 03/19/21at 08:37; Start 03/14/21 at 14:00 Apixaban (Eliquis) 2.5 mg BID PO Last administered on 03/19/21at 08:38; Start 03/14/21 at 21:00 Ferrous Sulfate (Feosol) 325 mg DAILYWBKFT PO Last administered on 03/19/21at 08:38; Start 03/15/21 at 08:00 Furosemide (Lasix) 20 mg DAILY PO Last administered on 03/19/21at 08:38; Start 03/15/21 at 09:00 Vitamin D (Vitamin D3) 1,000 unit DAILY PO Last administered on 03/19/21at 08:37; Start 03/15/21 at 09:00 Pramipexole Dihydrochloride (miraPEX) 0.5 mg [id number] PO Last administered on 03/19/21at 08:37; Start 03/14/21 at 16:30 Magnesium Hydroxide (Milk Of Magnesia) 2,400 mg PRN DAILY PRN PO CONSTIPATION; Start 03/14/21 at 16:00 Piperacillin Sod/ Tazobactam Sod (Zosyn Per Pharmacy) 1 each PRN DAILY PRN MC SEE COMMENTS; Start 03/14/21 at 16:15 Piperacillin Sod/ Tazobactam Sod 2.25 gm/Sodium Chloride 50 ml @ 100 mls/hr Q6HRS IV Last administered on 03/19/21at 05:16; Start 03/15/21 at 12:00 Lactobacillus Rhamnosus (Culturelle) 1 cap BID PO Last administered on 03/19/21at 08:39; Start 03/16/21 at 21:00 Gadoterate Meglumine (Clariscan) 15 ml 1X ONCE IVP Last administered on 03/17/21at 09:25; Start 03/17/21 at 09:30; Stop 03/17/21 at 09:31; Status DC Amlodipine Besylate (Norvasc) 2.5 mg DAILY PO Last administered on 03/19/21at 08:38; Start 03/17/21 at 11:00 Active Scripts Active Furosemide 20 Mg Tablet 20 Mg PO DAILY Eliquis (Apixaban) 5 Mg Tablet 5 Mg PO BID [Fluconazole] 100 MG Tablet 100 Mg PO DAILY 5 Days Zyvox (Linezolid) 600 Mg Tablet 600 Mg PO BID 5 Days Zosyn 2.25 Gm Pre-Mix Bag (Shgqdmoifpsy-Qfcr-Xbukawaj,Iso) 2.25 Gm/50 Ml Froz.piggy 2.25 Gm IV Q6HRS 5 Days Hydrocodone-Acetamin 5-325 mg (Hydrocodone/Acetaminophen) 1 Each Tablet 1 Each PO Q6HRS PRN Culturelle (Lactobacillus Rhamnosus Gg) 1 Each Cap.sprink 1 Cap PO BID 10 Days Acetaminophen 500 Mg Tablet 500 Mg PO PRN Q4HRS PRN Reported Mirapex (Pramipexole Di-Hcl) 0.25 Mg Tablet 0.5 Mg PO TID Vitamin D3 (Cholecalciferol (Vitamin D3)) 1,000 Unit Tablet 1,000 Unit PO DAILY Sinemet Cr 50-200 Tablet (Carbidopa/Levodopa) 1 Each Tablet.er 1 Tab PO TID Vitals/I & O Vital Sign - Last 24 Hours 03/18/21 03/18/21 03/18/21 03/18/21 08:56 11:00 15:00 19:00 Temp 98.1 90.1 97.3 98.1 90.1 97.3 Pulse 69 78 84 85 Resp 18 16 16 B/P (MAP) 152/91 135/80 (98) 158/90 (112) 137/78 (97) Pulse Ox 93 93 97 O2 Delivery Room Air Room Air Room Air 03/18/21 03/18/21 03/19/21 03/19/21 20:20 23:08 03:11 07:00 Temp 98.0 97.7 98.0 98.0 97.7 98.0 Pulse 79 86 78 Resp 18 18 18 B/P (MAP) 144/80 (101) 132/72 (92) 130/76 (94) Pulse Ox 100 98 97 O2 Delivery Room Air Room Air Room Air Room Air 03/19/21 08:38 Pulse 78 B/P (MAP) 130/76 Intake and Output 03/18/21 03/18/21 03/19/21 15:00 23:00 07:00 Intake Total 570 ml 100 ml 50 ml Balance 570 ml 100 ml 50 ml Justifications for Admission Other Justification Nutrition Consultation Dietary Evaluation: Recommendations by RD: Dietary education by RD, Increase Calorie Intake, Protein supplementation Comments: regular ensure enlive bid REC mvi and vit c per wound protocal Expected Outcomes/Goals: to meet >75% est nutr needs improved wound status Interpretation of weight loss: >7.5% in 3 months Malnutrition Findings: Food and Nutrition Intake (Mod: <75% est energy req 7days Weight Status: Overweight HEATHER KOCH DPM Mar 19, 2021 08:55
--- NOTE | 2021-03-19 10:53 | PDOC ---
PROGRESS NOTES Date of Service DATE: 03/19/21 TIME: 10:51 Subjective Subjective feels well. .lab reviewed. confused at times. discussed with her nurse and spoke with her daughter today Objective Objective Vital Signs Date Time Temp Pulse Resp B/P (MAP) Pulse Ox O2 Delivery O2 Flow Rate FiO2 03/19/21 08:38 78 130/76 03/19/21 07:00 98.0 18 97 Room Air 98.0 Intake and Output 03/19/21 07:00 Intake Total 720 ml Balance 720 ml Intake Oral 320 ml IV Total 400 ml # Voids 3 # Bowel Movements 1 Physical Exam Abdomen: Soft Heart: Regular rate, Normal S1, Normal S2 Extremities: No edema, Other (drydressing left lower leg) General: Alert HEENT: Atraumatic Lungs: Clear to auscultation Neuro: Normal speech Psych/Mental Status: Mood NL Assessment Assessment Problems2. Left calf wound which overlies the distal left fibula. wound cultures grew Proteus and enterococcus. MRI neg for osteomyelitis 3. Chronic kidney disease stage 3. 4. Chronic venous insufficiency of the legs. 5. Parkinson's disease. 6. Anemia of chronic disease. 7. 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 Medical Problems: (1) Osteomyelitis Status: Acute Plan Plan of Care continue zyvox and zosyn wound debridement tomorrow with wound vac PT and OT urinalysis continue sinemet and mirapex Comment Review of Relevant I have reviewed the following items cathleen (where applicable) has been applied. Labs Laboratory Tests Test 03/19/21 06:10 White Blood Count 5.1 x10^3/uL (4.0-11.0) Red Blood Count 4.01 x10^6/uL (3.50-5.40) Hemoglobin 7.8 g/dL (12.0-15.5) Hematocrit 25.2 % (36.0-47.0) Mean Corpuscular Volume 63 fL (79-100) Mean Corpuscular Hemoglobin 20 pg (25-35) Mean Corpuscular Hemoglobin Concent 31 g/dL (31-37) Red Cell Distribution Width 18.1 % (11.5-14.5) Platelet Count 276 x10^3/uL (140-400) Neutrophils (%) (Auto) 53 % (31-73) Lymphocytes (%) (Auto) 32 % (24-48) Monocytes (%) (Auto) 5 % (0-9) Eosinophils (%) (Auto) 8 % (0-3) Basophils (%) (Auto) 2 % (0-3) Neutrophils # (Auto) 2.7 x10^3/uL (1.8-7.7) Lymphocytes # (Auto) 1.7 x10^3/uL (1.0-4.8) Monocytes # (Auto) 0.2 x10^3/uL (0.0-1.1) Eosinophils # (Auto) 0.4 x10^3/uL (0.0-0.7) Basophils # (Auto) 0.1 x10^3/uL (0.0-0.2) Sodium Level 139 mmol/L (136-145) Potassium Level 3.9 mmol/L (3.5-5.1) Chloride Level 105 mmol/L (98-107) Carbon Dioxide Level 25 mmol/L (21-32) Anion Gap 9 (6-14) Blood Urea Nitrogen 17 mg/dL (7-20) Creatinine 1.5 mg/dL (0.6-1.0) Estimated GFR (Cockcroft-Gault) 39.8 Glucose Level 64 mg/dL (70-99) Calcium Level 8.7 mg/dL (8.5-10.1) Laboratory Tests Test 03/19/21 06:10 White Blood Count 5.1 x10^3/uL (4.0-11.0) Red Blood Count 4.01 x10^6/uL (3.50-5.40) Hemoglobin 7.8 g/dL (12.0-15.5) Hematocrit 25.2 % (36.0-47.0) Mean Corpuscular Volume 63 fL (79-100) Mean Corpuscular Hemoglobin 20 pg (25-35) Mean Corpuscular Hemoglobin Concent 31 g/dL (31-37) Red Cell Distribution Width 18.1 % (11.5-14.5) Platelet Count 276 x10^3/uL (140-400) Neutrophils (%) (Auto) 53 % (31-73) Lymphocytes (%) (Auto) 32 % (24-48) Monocytes (%) (Auto) 5 % (0-9) Eosinophils (%) (Auto) 8 % (0-3) Basophils (%) (Auto) 2 % (0-3) Neutrophils # (Auto) 2.7 x10^3/uL (1.8-7.7) Lymphocytes # (Auto) 1.7 x10^3/uL (1.0-4.8) Monocytes # (Auto) 0.2 x10^3/uL (0.0-1.1) Eosinophils # (Auto) 0.4 x10^3/uL (0.0-0.7) Basophils # (Auto) 0.1 x10^3/uL (0.0-0.2) Sodium Level 139 mmol/L (136-145) Potassium Level 3.9 mmol/L (3.5-5.1) Chloride Level 105 mmol/L (98-107) Carbon Dioxide Level 25 mmol/L (21-32) Anion Gap 9 (6-14) Blood Urea Nitrogen 17 mg/dL (7-20) Creatinine 1.5 mg/dL (0.6-1.0) Estimated GFR (Cockcroft-Gault) 39.8 Glucose Level 64 mg/dL (70-99) Calcium Level 8.7 mg/dL (8.5-10.1) Microbiology 03/14/21 Blood Culture - Preliminary, Resulted NO GROWTH AFTER 4 DAYS 03/14/21 Gram Stain - Final, Complete 03/14/21 Aerobic and Anaerobic Culture - Final, Complete 03/14/21 Antimicrobic Susceptibility - Final, Complete Medications Current Medications Vancomycin HCl 1.5 gm/Sodium Chloride 500 ml @ 250 mls/hr 1X ONCE IV ; Start 03/14/21 at 11:45; Stop 03/14/21 at 11:35; Status DC Ceftriaxone Sodium (Rocephin) 1 gm 1X ONCE IVP Last administered on 03/14/21at 11:30; Start 03/14/21 at 11:45; Stop 03/14/21 at 11:35; Status DC Piperacillin Sod/ Tazobactam Sod 4.5 gm/Sodium Chloride 100 ml @ 200 mls/hr 1X ONCE IV Last administered on 03/14/21at 11:52; Start 03/14/21 at 12:00; Stop 03/14/21 at 12:29; Status DC Linezolid/Dextrose 300 ml @ 300 mls/hr Q12HR IV Last administered on 03/19/21at 08:42; Start 03/14/21 at 13:00 Piperacillin Sod/ Tazobactam Sod 3.375 gm/Sodium Chloride 50 ml @ 100 mls/hr Q6HRS IV Last administered on 03/15/21at 05:06; Start 03/14/21 at 18:00; Stop 03/15/21 at 09:35; Status DC Acetaminophen (Tylenol) 650 mg PRN Q6HRS PRN PO MILD PAIN / TEMP > 100.3'F Last administered on 03/19/21at 05:26; Start 03/14/21 at 16:00 Carbidopa/Levodopa (Sinemet Cr) 2 tab.sa TID PO Last administered on 03/19/21 08:37; Start 03/14/21 at 14:00 Apixaban (Eliquis) 2.5 mg BID PO Last administered on 03/19/21at 08:38; Start 03/14/21 at 21:00 Ferrous Sulfate (Feosol) 325 mg DAILYWBKFT PO Last administered on 03/19/21at 08:38; Start 03/15/21 at 08:00 Furosemide (Lasix) 20 mg DAILY PO Last administered on 03/19/21 08:38; Start 03/15/21 at 09:00 Vitamin D (Vitamin D3) 1,000 unit DAILY PO Last administered on 03/19/21at 08:37; Start 03/15/21 at 09:00 Pramipexole Dihydrochloride (miraPEX) 0.5 mg [id number] PO Last administered on 03/19/21at 08:37; Start 03/14/21 at 16:30 Magnesium Hydroxide (Milk Of Magnesia) 2,400 mg PRN DAILY PRN PO CONSTIPATION; Start 03/14/21 at 16:00 Piperacillin Sod/ Tazobactam Sod (Zosyn Per Pharmacy) 1 each PRN DAILY PRN MC SEE COMMENTS; Start 03/14/21 at 16:15 Piperacillin Sod/ Tazobactam Sod 2.25 gm/Sodium Chloride 50 ml @ 100 mls/hr Q6HRS IV Last administered on 03/19/21at 05:16; Start 03/15/21 at 12:00 Lactobacillus Rhamnosus (Culturelle) 1 cap BID PO Last administered on 03/19/21at 08:39; Start 03/16/21 at 21:00 Gadoterate Meglumine (Clariscan) 15 ml 1X ONCE IVP Last administered on 03/17/21at 09:25; Start 03/17/21 at 09:30; Stop 03/17/21 at 09:31; Status DC Amlodipine Besylate (Norvasc) 2.5 mg DAILY PO Last administered on 03/19/21at 08:38; Start 03/17/21 at 11:00 Fentanyl Citrate (Fentanyl 2ml Vial) 25 mcg PRN Q5MIN PRN IVP MILD PAIN 1-3; Start 03/20/21 at 06:00; Stop 03/21/21 at 05:59 Fentanyl Citrate (Fentanyl 2ml Vial) 50 mcg PRN Q5MIN PRN IVP MODERATE PAIN 4- 6; Start 03/20/21 at 06:00; Stop 03/21/21 at 05:59 Morphine Sulfate (Morphine Sulfate) 1 mg PRN Q10MIN PRN IVP SEVERE PAIN 7-10; Start 03/20/21 at 06:00; Stop 03/21/21 at 05:59 Ringer's Solution 1,000 ml @ 30 mls/hr Q24H IV ; Start 03/20/21 at 06:00; Stop 03/20/21 at 17:59 Hydromorphone HCl (Dilaudid) 0.5 mg PRN Q10MIN PRN IVP SEVERE PAIN 7-10, 2nd CHOICE; Start 03/20/21 at 06:00; Stop 03/21/21 at 05:59 Prochlorperazine Edisylate (Compazine) 5 mg PACU PRN PRN IVP NAUSEA, MRX1; Start 03/20/21 at 06:00; Stop 03/21/21 at 05:59 Active Scripts Active Furosemide 20 Mg Tablet 20 Mg PO DAILY Eliquis (Apixaban) 5 Mg Tablet 5 Mg PO BID [Fluconazole] 100 MG Tablet 100 Mg PO DAILY 5 Days Zyvox (Linezolid) 600 Mg Tablet 600 Mg PO BID 5 Days Zosyn 2.25 Gm Pre-Mix Bag (Vbsqggujqpjm-Hglu-Mbuvcboa,Iso) 2.25 Gm/50 Ml Froz.piggy 2.25 Gm IV Q6HRS 5 Days Hydrocodone-Acetamin 5-325 mg (Hydrocodone/Acetaminophen) 1 Each Tablet 1 Each PO Q6HRS PRN Culturelle (Lactobacillus Rhamnosus Gg) 1 Each Cap.sprink 1 Cap PO BID 10 Days Acetaminophen 500 Mg Tablet 500 Mg PO PRN Q4HRS PRN Reported Mirapex (Pramipexole Di-Hcl) 0.25 Mg Tablet 0.5 Mg PO TID Vitamin D3 (Cholecalciferol (Vitamin D3)) 1,000 Unit Tablet 1,000 Unit PO DAILY Sinemet Cr 50-200 Tablet (Carbidopa/Levodopa) 1 Each Tablet.er 1 Tab PO TID Vitals/I & O Vital Sign - Last 24 Hours 03/18/21 03/18/21 03/18/21 03/18/21 11:00 15:00 19:00 20:20 Temp 98.1 90.1 97.3 98.1 90.1 97.3 Pulse 78 84 85 Resp 18 16 16 B/P (MAP) 135/80 (98) 158/90 (112) 137/78 (97) Pulse Ox 93 93 97 O2 Delivery Room Air Room Air Room Air Room Air 03/18/21 03/19/21 03/19/21 03/19/21 23:08 03:11 07:00 08:38 Temp 98.0 97.7 98.0 98.0 97.7 98.0 Pulse 79 86 78 78 Resp 18 18 18 B/P (MAP) 144/80 (101) 132/72 (92) 130/76 (94) 130/76 Pulse Ox 100 98 97 O2 Delivery Room Air Room Air Room Air Intake and Output 03/18/21 03/18/21 03/19/21 15:00 23:00 07:00 Intake Total 570 ml 100 ml 50 ml Balance 570 ml 100 ml 50 ml Justifications for Admission Other Justification Nutrition Consultation Dietary Evaluation: Recommendations by RD: Dietary education by RD, Increase Calorie Intake, Protein supplementation Comments: regular ensure enlive bid REC mvi and vit c per wound protocal Expected Outcomes/Goals: to meet >75% est nutr needs improved wound status Interpretation of weight loss: >7.5% in 3 months Malnutrition Findings: Food and Nutrition Intake (Mod: <75% est energy req 7days Weight Status: Overweight ELI ROSALES MD Mar 19, 2021 10:53
[2021-03-19 11:16] VITALS: BP 144/73
[2021-03-19 15:00] VITALS: BP 140/74
--- NOTE | 2021-03-19 17:24 | NUR ---
UA was obtained at this time via hat and being sent to lab.
[2021-03-19 17:39] LABS: BILIRUBIN,URINE NEGATIVE (NEG); CLARITY,URINE CLEAR; COLOR,URINE YELLOW; NITRITE,URINE NEGATIVE (NEG); PH,URINE 5.5 (<5.0-8.0); PROTEIN,URINE NEGATIVE (NEG-TRACE); UROBILINOGEN,URINE 0.2 mg/dL (0.2 mg/dL)
[2021-03-19 18:00] LABS: HYALINE CASTS, URINE FEW /HPF
[2021-03-19 18:01] LABS: BACTERIA,URINE 0 /HPF (0-FEW); RBC,URINE OCC /HPF (0-2); WBC,URINE OCC /HPF (0-4)
[2021-03-19 19:34] VITALS: BP 122/64
[2021-03-19 22:48] VITALS: BP 142/74
[2021-03-20] VITALS (10 sets, daily range): BP systolic 130–150; BP diastolic 70–80
[2021-03-20] MEDS: ACETAMINOPHEN 325 MG TABLET. PO PRN (03:05)
[2021-03-20] MEDS: PIPERACILLIN/TAZOBACTAM 2.25 GM in IV NORMAL SALINE 50ML 50 ML IV SCH ×3 (05:33→17:48)
[2021-03-20] MEDS ORDERED: fentaNYL PF VIAL 100 MCG/2 ML VIAL IVP PRN ×2 (06:00)
[2021-03-20] MEDS ORDERED: IV RINGERS,LACTATED 1000ML 1,000 ML IV SCH (06:00)
[2021-03-20] MEDS ORDERED: PROCHLORPERAZINE 10 MG/2 ML VIAL. IVP PRN (06:00)
[2021-03-20] MEDS ORDERED: MORPHINE SULFATE 2 MG/ML INJ. IVP PRN (06:00)
[2021-03-20] MEDS ORDERED: HYDROmorphone 2 MG/ML VIAL IVP PRN (06:00)
[2021-03-20] MEDS ORDERED: PROPOFOL 10 MG/ML (20ML) VIAL. IV ONE ×2 (07:01)
[2021-03-20] MEDS ORDERED: DEXAMETHASONE SOD PHOS 4 MG/ML VIAL ONE (07:02)
[2021-03-20] MEDS ORDERED: fentaNYL PF VIAL 100 MCG/2 ML VIAL ONE ×2 (07:02→07:58)
[2021-03-20] MEDS ORDERED: ONDANSETRON PF 4 MG/2 ML VIAL. ONE (07:03)
[2021-03-20] MEDS ORDERED: LIDOCAINE 2% PF 5 ML VIAL. ONE (07:03)
[2021-03-20] MEDS: FERROUS SULFATE 325 MG TABLET. PO SCH (08:00)
--- NOTE | 2021-03-20 08:09 | PDOC ---
Infectious Disease Note Subjective: Subjective Feels okay Awaiting surgery Vital Signs: Vital Signs Vital Signs Date Time Temp Pulse Resp B/P (MAP) Pulse Ox O2 Delivery O2 Flow Rate FiO2 03/20/21 06:45 98.1 80 15 144/74 97 Room Air 98.1 Physical Exam: PHYSICAL EXAM GENERAL: AXOX3 female in nad HEENT: Normocephalic, atraumatic. Anicteric. Oral mucosa moist. NECK: Supple. LUNGS: Clear bilaterally. HEART: S1, S2. ABDOMEN: Soft, nontender, bowel sounds present. EXTREMITIES: Right lower extremity has edema, 1-2+ edema of the left lower extremity. There is an open wound with sinus tract on the superior aspect on the left lateral leg, mild surrounding erythema and slight warmth. No gross purulence noted. No drainage noted. Dorsalis pedis palpable. No cyanosis, no clubbing. DERMATOLOGIC: Warm, dry, no generalized rash except for above. NEUROLOGIC: Alert, oriented x 3, grossly nonfocal. PSYCHIATRIC: Calm and cooperative.. Medications: Inpatient Meds: Medications reviewed. Labs: Lab Laboratory Tests Test 03/19/21 17:25 Urine Collection Type Unknown Urine Color Yellow Urine Clarity Clear Urine pH 5.5 (<5.0-8.0) Urine Specific [place] 1.010 (1.000-1.030) Urine Protein Negative mg/dL (NEG-TRACE) Urine Glucose (UA) Negative mg/dL (NEG) Urine Ketones (Stick) Negative mg/dL (NEG) Urine Blood Trace (NEG) Urine Nitrite Negative (NEG) Urine Bilirubin Negative (NEG) Urine Urobilinogen Dipstick 0.2 mg/dL (0.2 mg/dL) Urine Leukocyte Esterase Negative (NEG) Urine RBC Occ /HPF (0-2) Urine WBC Occ /HPF (0-4) Urine Squamous Epithelial Cells Few /LPF Urine Bacteria 0 /HPF (0-FEW) Urine Hyaline Casts Few /HPF Urine Mucus Slight /LPF Micro RUN DATE: 03/17/21 [facility] *LIVE* PAGE 1 RUN TIME: 826 Specimen Inquiry PATIENT: JACKIE GROVES ACCT: [id number] LOC: [address] [place] [address] U: [id number] AGE/SX: 86/F ROOM: 408 RE03/14/[address]: ELI ROSALES MD : 1935 BED: 1 DIS: STATUS: ADM IN TLOC: -- SPEC #: [id number] JASMIN: 03/14/21 STATUS: RES REQ #: [id number] RECD: 03/14/[address]: ELI ROSALES MD SOURCE: LEG ENTR: 03/14/[address] [facility] [address]: EZRA RUIZ MD SPDC: WOUND ELI ALCANTAR SAMIR R MD ORDERED: ANAER/CAROLE/JESSA COMMENTS: LEFT LOWER LEG WOUND Procedure Result -------- ---- GRAM STAIN Final Final GRAM NEGATIVE RODS:FEW GRAM POSITIVE COCCI:RARE SQUAMOUS EPI CELL:NONE SEEN PMN (WBCs):MODERATE Unless otherwise specified, Testing Performed by: [facility] [address] [place] [address] For Inquires, the Physician may contact the Microbiology department at [phone] ANAEROBIC-AEROBIC CULTURE Preliminary Preliminary MIXED AEROBIC AND ANAEROBIC TUCKER on 03/16/21 at 1359 INCLUDING: MANY [PROTEUS MIRABILIS] MANY [ENTEROCOCCUS FAECALIS] MANY [PORPHYROMONAS SOMERAE] PROTEUS MIRABILIS ENTEROCOCCUS FAECALIS PORPHYROMONAS SOMERAE ANTIMICROBIAL SUSCEPTIBILITY Preliminary Comment Comment NEG ROSA 56 PROTEUS MIRABILIS ANTIBIOTIC RESULT INTERPRETATION AMPICILLIN/SULBACTAM <=4/2 S AMIKACIN <=16 S AMPICILLIN <=8 S AMOXICILLIN/K CLAVULANATE <=8/4 S AZTREONAM <=4 S CEFTRIAXONE <=1 S CEFTAZIDIME <=1 S CEFOTAXIME <=2 S RUN DATE: 03/17/21 [facility] *LIVE* PAGE 2 RUN TIME: 826 Specimen Inquiry SPEC: [id number] PATIENT: JACKIE GROVES [id number] (Continued) Procedure Result --- --------- CONTINUED ON NEXT PAGE RUN DATE: 03/17/21 [facility] *LIVE* PAGE 3 RUN TIME: 0827 Specimen Inquiry SPEC: [id number] PATIENT: JACKIE GROVES [id number] (Continued) Procedure Result ANTIMICROBIAL SUSCEPTIBILITY Preliminary (continued) CEFOXITIN <=8 S CEFAZOLIN <=2 S CIPROFLOXACIN <=0.25 S CEFEPIME <=2 S CEFUROXIME <=4 S CEFTAZIDIME/AVIBACTAM <=4 S ERTAPENEM <=0.5 S GENTAMICIN <=2 S LEVOFLOXACIN <=0.5 S MEROPENEM <=1 S PIPERACILLIN/TAZOBACTAM <=8 S TRIMETHOPRIM/SULFAMETHOXAZOLE <=0.5/9.5 S TETRACYCLINE >8 R TOBRAMYCIN <=2 S Streptomycin Synergy Screen S Gentamicin Synergy Screen S POS ROSA TYPE 38 ENTEROCOCCUS FAECALIS ANTIBIOTIC RESULT INTERPRETATION AMPICILLIN <=2 S DAPTOMYCIN 1 S LINEZOLID 2 S PENICILLIN 2 S VANCOMYCIN 1 S Unless otherwise specified, Testing Performed by: [address] [address] For Inquires, the Physician may contact the Microbiology department at [phone] Objective: Assessment: 1. Chronic nonhealing left lateral leg wound, cellulitis and subcutaneous abscess distal to ulcer, MRI neg for OM. Swab cultures positive for Enterococcus faecalis, Proteus, PORPHYROMONAS SOMERAE 3. Chronic kidney disease, 4. Parkinson's. 5. History of bilateral DVT. Plan: Plan of Care 1. Continue linezolid and Zosyn. 2 MRI of the left lower extremity results reviewed, no osteomyelitis. Abscess below ulcer site. 3. Vascular team is following. Podiatry following. Plans for debridement noted. Send intraoperative fluid/tissue for cultures 4. Continue local wound care as directed. 5. Monitor labs and cultures. 6. Continue supportive care. 7. Cdiff if diarrhea continues Discussed with nursing staff. TRAV IBARRA MD Mar 20, 2021 08:09
[2021-03-20] MEDS ORDERED: oxyCODONE/APAP 5/325 1 TAB TABLET PO ONE (08:15)
--- NOTE | 2021-03-20 08:43 | PDOC4 ---
OPERATIVE NOTE Date: Date: Mar 20, 2021 Pre-Op Diagnosis: L distal leg deep tissue abscess Post-Op Diagnosis: same as above Procedure Performed: L leg incision and drainage, wound vac application, posterior splint application Surgeon: Heather Koch DPM Anesthesia Type: General Blood Loss: 10 cc Specimans Obtained: L leg deep tissue specimen, adipose/fascial tissue Findings: necrotic and liquified superficial fascia/adipose tissue 1 cm posterior to the lateral leg wound extending distally. no deep fascia, tendon, bone violation. no proximal tracking along the fascial plane or tendon sheath. wound bed bled adequately. Complications: None Operative Note: Patient was brought into the operating room and placed on the operating table in a supine position. A timeout was performed to confirm patient's identity, location of surgery and procedure. After induction of general anesthesia. The left lower extremity was then scrubbed, prepped and draped in the usual sterile manner. Tourniquet was not placed or inflated to the left lower extremity. Then the attention was directed to the left distal fibular ulcer. A straight linear incision was made approximately 1 cm posterior to the fibular ulcer, as guided by an MRI findings. The incision was carried deep with a combination of sharp and blunt dissection to the suprafascial layer. At this time, moderate necrotic adipose tissue, and superficial fascia were remarked without significant purulence limited in the superficial compartment without violation of the deep fascia, peroneal tendons, underlying bone. Anteriorly, the surgical wound communicates with the lateral fibular wound without significant undermining. Deep tissue culture was collected at this time for anaerobes, aerobes and sensitivity. The gross specimen was sent for pathology. Then 3 L of normal saline infused with Betadine was used to irrigate the surgical site copiously. Afterwards, wound site inspection was negative for necrotic tissue, purulence. The wound bed appeared granular with healthy pinpoint bleeding. Then a repeat deep tissue culture was collected for anaerobes, aerobes and sensitivity. The surgical wound and distal fibular wound were dressed with wound VAC, sealed at 125 mmHg continuous. The left surgical lower extremity was dressed with 4 x 4 gauze, soft roll, abdominal pads and immobilized in a posterior splint with ankle held near 90 degrees. Afterwards, adequate digital perfusion was noted. Patient tolerated procedure anesthesia well with vital signs stable and neurovascular status intact. Patient was then transferred to PACU for continued recovery. HEATHER KOCH DPM Mar 20, 2021 08:43
--- NOTE | 2021-03-20 08:45 | NUR ---
Spoke with Trudy in PACU regarding pt. She had I&D and wound vac placed, no complications. Pt has arrived back to room alert and a little drowsy. Denies pain at this time
[2021-03-20] MEDS: PRAMIPEXOLE 0.25 MG TABLET. PO SCH ×3 (10:01→21:37)
[2021-03-20] MEDS: LACTOBACILLUS RHAMNOSUS GG 1 CAPSULE. PO SCH ×2 (10:01→21:37)
[2021-03-20] MEDS: CHOLECALCIFEROL (VITAMIN D3) 1,000 UNIT TABLET PO SCH (10:01)
[2021-03-20] MEDS: CARBIDOPA/LEVODOPA CR 25/100MG TABLET.SA. PO SCH ×3 (10:02→21:37)
[2021-03-20] MEDS: FUROSEMIDE 20 MG TABLET PO SCH (10:02)
--- NOTE | 2021-03-20 10:43 | PDOC ---
PROGRESS NOTES Date of Service DATE: 03/20/21 TIME: 10:41 Subjective Subjective returned from surgery adn is alert and comfortable . feels well. Objective Objective Vital Signs Date Time Temp Pulse Resp B/P (MAP) Pulse Ox O2 Delivery O2 Flow Rate FiO2 03/20/21 10:03 72 138/74 03/20/21 08:45 98.1 16 96 Room Air 98.1 03/20/21 08:26 2.0 Intake and Output 03/20/21 07:00 Intake Total 450 ml Balance 450 ml Intake Oral 400 ml IV Total 50 ml # Voids 2 # Bowel Movements 1 Physical Exam Abdomen: Soft Heart: Regular rate, Normal S1, Normal S2 Extremities: Other (splint LLE with wound vac) General: Alert, Other HEENT: Atraumatic Lungs: Clear to auscultation Neuro: Normal speech Psych/Mental Status: Mood NL Skin: No rashes Assessment Assessment Problems Left calf wound which overlies the distal left fibula. wound cultures grew Proteus and enterococcus. MRI neg for osteomyelitis. incision and drainage of wound 03/20/21 3. Chronic kidney disease stage 3. 4. Chronic venous insufficiency of the legs. 5. Parkinson's disease. 6. Anemia of chronic disease. 7. 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 Medical Problems: (1) Osteomyelitis Status: Acute Plan Plan of Care continue zyvox and zosyn await intra-operative cultures resume eliquis tomorrow continue Parkinsons meds PT and OT Comment Review of Relevant I have reviewed the following items cathleen (where applicable) has been applied. Labs Laboratory Tests Test 03/19/21 06:10 03/19/21 17:25 White Blood Count 5.1 x10^3/uL (4.0-11.0) Red Blood Count 4.01 x10^6/uL (3.50-5.40) Hemoglobin 7.8 g/dL (12.0-15.5) Hematocrit 25.2 % (36.0-47.0) Mean Corpuscular Volume 63 fL (79-100) Mean Corpuscular Hemoglobin 20 pg (25-35) Mean Corpuscular Hemoglobin Concent 31 g/dL (31-37) Red Cell Distribution Width 18.1 % (11.5-14.5) Platelet Count 276 x10^3/uL (140-400) Neutrophils (%) (Auto) 53 % (31-73) Lymphocytes (%) (Auto) 32 % (24-48) Monocytes (%) (Auto) 5 % (0-9) Eosinophils (%) (Auto) 8 % (0-3) Basophils (%) (Auto) 2 % (0-3) Neutrophils # (Auto) 2.7 x10^3/uL (1.8-7.7) Lymphocytes # (Auto) 1.7 x10^3/uL (1.0-4.8) Monocytes # (Auto) 0.2 x10^3/uL (0.0-1.1) Eosinophils # (Auto) 0.4 x10^3/uL (0.0-0.7) Basophils # (Auto) 0.1 x10^3/uL (0.0-0.2) Sodium Level 139 mmol/L (136-145) Potassium Level 3.9 mmol/L (3.5-5.1) Chloride Level 105 mmol/L (98-107) Carbon Dioxide Level 25 mmol/L (21-32) Anion Gap 9 (6-14) Blood Urea Nitrogen 17 mg/dL (7-20) Creatinine 1.5 mg/dL (0.6-1.0) Estimated GFR (Cockcroft-Gault) 39.8 Glucose Level 64 mg/dL (70-99) Calcium Level 8.7 mg/dL (8.5-10.1) Urine Collection Type Unknown Urine Color Yellow Urine Clarity Clear Urine pH 5.5 (<5.0-8.0) Urine Specific [place] 1.010 (1.000-1.030) Urine Protein Negative mg/dL (NEG-TRACE) Urine Glucose (UA) Negative mg/dL (NEG) Urine Ketones (Stick) Negative mg/dL (NEG) Urine Blood Trace (NEG) Urine Nitrite Negative (NEG) Urine Bilirubin Negative (NEG) Urine Urobilinogen Dipstick 0.2 mg/dL (0.2 mg/dL) Urine Leukocyte Esterase Negative (NEG) Urine RBC Occ /HPF (0-2) Urine WBC Occ /HPF (0-4) Urine Squamous Epithelial Cells Few /LPF Urine Bacteria 0 /HPF (0-FEW) Urine Hyaline Casts Few /HPF Urine Mucus Slight /LPF Laboratory Tests Test 03/19/21 17:25 Urine Collection Type Unknown Urine Color Yellow Urine Clarity Clear Urine pH 5.5 (<5.0-8.0) Urine Specific [place] 1.010 (1.000-1.030) Urine Protein Negative mg/dL (NEG-TRACE) Urine Glucose (UA) Negative mg/dL (NEG) Urine Ketones (Stick) Negative mg/dL (NEG) Urine Blood Trace (NEG) Urine Nitrite Negative (NEG) Urine Bilirubin Negative (NEG) Urine Urobilinogen Dipstick 0.2 mg/dL (0.2 mg/dL) Urine Leukocyte Esterase Negative (NEG) Urine RBC Occ /HPF (0-2) Urine WBC Occ /HPF (0-4) Urine Squamous Epithelial Cells Few /LPF Urine Bacteria 0 /HPF (0-FEW) Urine Hyaline Casts Few /HPF Urine Mucus Slight /LPF Microbiology 03/14/21 Blood Culture - Final, Complete NO GROWTH AFTER 5 DAYS 03/14/21 Gram Stain - Final, Complete 03/14/21 Aerobic and Anaerobic Culture - Final, Complete 03/14/21 Antimicrobic Susceptibility - Final, Complete Medications Current Medications Vancomycin HCl 1.5 gm/Sodium Chloride 500 ml @ 250 mls/hr 1X ONCE IV ; Start 03/14/21 at 11:45; Stop 03/14/21 at 11:35; Status DC Ceftriaxone Sodium (Rocephin) 1 gm 1X ONCE IVP Last administered on 03/14/21at 11:30; Start 03/14/21 at 11:45; Stop 03/14/21 at 11:35; Status DC Piperacillin Sod/ Tazobactam Sod 4.5 gm/Sodium Chloride 100 ml @ 200 mls/hr 1X ONCE IV Last administered on 03/14/21at 11:52; Start 03/14/21 at 12:00; Stop 03/14/21 at 12:29; Status DC Linezolid/Dextrose 300 ml @ 300 mls/hr Q12HR IV Last administered on 03/20/21 at 09:50; Start 03/14/21 at 13:00 Piperacillin Sod/ Tazobactam Sod 3.375 gm/Sodium Chloride 50 ml @ 100 mls/hr Q6HRS IV Last administered on 03/15/21at 05:06; Start 03/14/21 at 18:00; Stop 03/15/21 at 09:35; Status DC Acetaminophen (Tylenol) 650 mg PRN Q6HRS PRN PO MILD PAIN / TEMP > 100.3'F Last administered on 03/20/21at 03:05; Start 03/14/21 at 16:00 Carbidopa/Levodopa (Sinemet Cr) 2 tab.sa TID PO Last administered on 03/20/21at 10:02; Start 03/14/21 at 14:00 Apixaban (Eliquis) 2.5 mg BID PO Last administered on 03/19/21at 08:38; Start 03/14/21 at 21:00; Stop 03/19/21 at 15:19; Status DC Ferrous Sulfate (Feosol) 325 mg DAILYWBKFT PO Last administered on 03/20/21at 08:00; Start 03/15/21 at 08:00 Furosemide (Lasix) 20 mg DAILY PO Last administered on 03/20/21at 10:02; Start 03/15/21 at 09:00 Vitamin D (Vitamin D3) 1,000 unit DAILY PO Last administered on 03/20/21at 10:01; Start 03/15/21 at 09:00 Pramipexole Dihydrochloride (miraPEX) 0.5 mg [id number] PO Last administered on 03/20/21at 10:01; Start 03/14/21 at 16:30 Magnesium Hydroxide (Milk Of Magnesia) 2,400 mg PRN DAILY PRN PO CONSTIPATION; Start 03/14/21 at 16:00 Piperacillin Sod/ Tazobactam Sod (Zosyn Per Pharmacy) 1 each PRN DAILY PRN MC SEE COMMENTS; Start 03/14/21 at 16:15 Piperacillin Sod/ Tazobactam Sod 2.25 gm/Sodium Chloride 50 ml @ 100 mls/hr Q6HRS IV Last administered on 03/20/21at 05:33; Start 03/15/21 at 12:00 Lactobacillus Rhamnosus (Culturelle) 1 cap BID PO Last administered on 03/20/21at 10:01; Start 03/16/21 at 21:00 Gadoterate Meglumine (Clariscan) 15 ml 1X ONCE IVP Last administered on 03/17/21at 09:25; Start 03/17/21 at 09:30; Stop 03/17/21 at 09:31; Status DC Amlodipine Besylate (Norvasc) 2.5 mg DAILY PO Last administered on 03/20/21at 10:03; Start 03/17/21 at 11:00 Fentanyl Citrate (Fentanyl 2ml Vial) 25 mcg PRN Q5MIN PRN IVP MILD PAIN 1-3; Start 03/20/21 at 06:00; Stop 03/21/21 at 05:59 Fentanyl Citrate (Fentanyl 2ml Vial) 50 mcg PRN Q5MIN PRN IVP MODERATE PAIN 4-6 Last administered on 03/20/21at 08:26; Start 03/20/21 at 06:00; Stop 03/21/21 at 05:59 Morphine Sulfate (Morphine Sulfate) 1 mg PRN Q10MIN PRN IVP SEVERE PAIN 7-10; Start 03/20/21 at 06:00; Stop 03/21/21 at 05:59 Ringer's Solution 1,000 ml @ 30 mls/hr Q24H IV Last administered on 03/20/21at 07:00; Start 03/20/21 at 06:00; Stop 03/20/21 at 17:59 Hydromorphone HCl (Dilaudid) 0.5 mg PRN Q10MIN PRN IVP SEVERE PAIN 7-10, 2nd CHOICE; Start 03/20/21 at 06:00; Stop 03/21/21 at 05:59 Prochlorperazine Edisylate (Compazine) 5 mg PACU PRN PRN IVP NAUSEA, MRX1; Start 03/20/21 at 06:00; Stop 03/21/21 at 05:59 Propofol (Diprivan) 200 mg STK-MED ONCE IV ; Start 03/20/21 at 07:01; Stop 03/20/21 at 07:01; Status DC Propofol (Diprivan) 200 mg STK-MED ONCE IV ; Start 03/20/21 at 07:01; Stop 1 at 07:01; Status DC Fentanyl Citrate (Fentanyl 2ml Vial) 100 mcg STK-MED ONCE .ROUTE ; Start 03/20/21 at 07:02; Stop 03/20/21 at 07:02; Status DC Dexamethasone Sodium Phosphate (Decadron) 4 mg STK-MED ONCE .ROUTE ; Start 03/20/21 at 07:02; Stop 03/20/21 at 07:02; Status DC Ondansetron HCl (Zofran) 4 mg STK-MED ONCE .ROUTE ; Start 03/20/21 at 07:03; Stop 03/20/21 at 07:04; Status DC Lidocaine HCl (Lidocaine Pf 2% Vial) 5 ml STK-MED ONCE .ROUTE ; Start 03/20/21 at 07:03; Stop 03/20/21 at 07:04; Status DC Fentanyl Citrate (Fentanyl 2ml Vial) 100 mcg STK-MED ONCE .ROUTE ; Start 03/20/21 at 07:58; Stop 03/20/21 at 07:58; Status DC Oxycodone/ Acetaminophen (Percocet 5/325) 1 tab 1X ONCE PO Last administered on 03/20/21at 10:25; Start 03/20/21 at 08:15; Stop 03/20/21 at 08:21; Status DC Active Scripts Active Furosemide 20 Mg Tablet 20 Mg PO DAILY Eliquis (Apixaban) 5 Mg Tablet 5 Mg PO BID [Fluconazole] 100 MG Tablet 100 Mg PO DAILY 5 Days Zyvox (Linezolid) 600 Mg Tablet 600 Mg PO BID 5 Days Zosyn 2.25 Gm Pre-Mix Bag (Hiiaasajcvox-Lgmm-Aiuxsfzx,Iso) 2.25 Gm/50 Ml Froz.piggy 2.25 Gm IV Q6HRS 5 Days Hydrocodone-Acetamin 5-325 mg (Hydrocodone/Acetaminophen) 1 Each Tablet 1 Each PO Q6HRS PRN Culturelle (Lactobacillus Rhamnosus Gg) 1 Each Cap.sprink 1 Cap PO BID 10 Days Acetaminophen 500 Mg Tablet 500 Mg PO PRN Q4HRS PRN Reported Mirapex (Pramipexole Di-Hcl) 0.25 Mg Tablet 0.5 Mg PO TID Vitamin D3 (Cholecalciferol (Vitamin D3)) 1,000 Unit Tablet 1,000 Unit PO DAILY Sinemet Cr 50-200 Tablet (Carbidopa/Levodopa) 1 Each Tablet.er 1 Tab PO TID Vitals/I & O Vital Sign - Last 24 Hours 03/19/21 03/19/21 03/19/21 03/19/21 11:16 15:00 19:30 19:34 Temp 98.4 98.2 98.4 98.4 98.2 98.4 Pulse 79 76 90 Resp 18 18 16 B/P (MAP) 144/73 (96) 140/74 (96) 122/64 (83) Pulse Ox 98 99 97 O2 Delivery Room Air Room Air Room Air Room Air 03/19/21 03/20/21 03/20/21 03/20/21 22:48 03:18 06:45 08:07 Temp 97.7 98.1 98.1 98.5 97.7 98.1 98.1 98.5 Pulse 92 86 80 73 Resp 16 16 15 15 B/P (MAP) 142/74 (96) 130/70 (90) 144/74 151/80 Pulse Ox 97 96 97 97 O2 Delivery Room Air Room Air Room Air Room Air 03/20/21 03/20/21 03/20/21 03/20/21 08:07 08:24 08:26 08:45 Temp 98.5 98.1 98.5 98.1 Pulse 74 74 Resp 15 15 16 B/P (MAP) 143/74 150/70 (96) Pulse Ox 100 100 96 O2 Delivery Room Air Nasal Cannula Room Air Room Air O2 Flow Rate 2 2.0 03/20/21 03/20/21 03/20/21 09:00 09:15 10:03 Pulse 72 72 B/P (MAP) 135/78 (97) 138/74 (95) 138/74 Intake and Output 03/19/21 03/19/21 03/20/21 15:00 23:00 07:00 Intake Total 100 ml 150 ml 200 ml Balance 100 ml 150 ml 200 ml Justifications for Admission Other Justification Nutrition Consultation Dietary Evaluation: Recommendations by RD: Dietary education by RD, Increase Calorie Intake, Protein supplementation Comments: regular ensure enlive bid REC mvi and vit c per wound protocal Expected Outcomes/Goals: to meet >75% est nutr needs improved wound status Interpretation of weight loss: >7.5% in 3 months Malnutrition Findings: Food and Nutrition Intake (Mod: <75% est energy req 7days Weight Status: Overweight ELI ROSALES MD Mar 20, 2021 10:43
[2021-03-21] MEDS: PIPERACILLIN/TAZOBACTAM 2.25 GM in IV NORMAL SALINE 50ML 50 ML IV SCH ×5 (02:08→23:03)
[2021-03-21 03:00] VITALS: BP 168/92
[2021-03-21 07:00] VITALS: BP 127/69
--- NOTE | 2021-03-21 08:28 | PDOC ---
Infectious Disease Note Subjective: Subjective Patient feels better Daughter at bedside Denies any fever chills nausea vomiting further episodes of diarrhea or abdominal pain Left leg pain is under control Vital Signs: Vital Signs Vital Signs Date Time Temp Pulse Resp B/P (MAP) Pulse Ox O2 Delivery O2 Flow Rate FiO2 03/21/21 07:42 Room Air 03/21/21 07:00 97.9 90 18 127/69 (88) 94 97.9 03/20/21 08:26 2.0 Physical Exam: PHYSICAL EXAM GENERAL: AXOX3 female in nad HEENT: Normocephalic, atraumatic. Anicteric. Oral mucosa moist. NECK: Supple. LUNGS: Clear bilaterally. HEART: S1, S2. ABDOMEN: Soft, nontender, bowel sounds present. EXTREMITIES: Right lower extremity has edema, 1-2+ edema of the left lower extremity. There is an open wound with sinus tract on the superior aspect on the left lateral leg, mild surrounding erythema and slight warmth. No gross purulence noted. No drainage noted. Dorsalis pedis palpable. No cyanosis, no clubbing. DERMATOLOGIC: Warm, dry, no generalized rash except for above. NEUROLOGIC: Alert, oriented x 3, grossly nonfocal. PSYCHIATRIC: Calm and cooperative.. Medications: Inpatient Meds: Medications reviewed. Labs: Micro RUN DATE: 03/17/21 [facility] *LIVE* PAGE 1 RUN TIME: 826 Specimen Inquiry PATIENT: GERMAINJACKIE ACCT: [id number] LOC: [address] [place] [address] U: [id number] AGE/SX: 86/F ROOM: 408 RE03/14/[address]: ELI ROSALES MD : 1935 BED: 1 DIS: STATUS: ADM IN TLOC: SPEC #: [id number] JASMIN: 03/14/21 STATUS: RES REQ #: [id number] RECD: 03/14/[address]: ELI ROSALES MD SOURCE: LEG ENTR: 03/14/[address]: EZRA RUIZ MD SPDESC: WOUND ELI ALCANTAR SAMIR R MD ORDERED: ANAER/CAROLE/JESSA COMMENTS: LEFT LOWER LEG WOUND Procedure Result GRAM STAIN Final Final GRAM NEGATIVE RODS:FEW GRAM POSITIVE COCCI:RARE SQUAMOUS EPI CELL:NONE SEEN PMN (WBCs):MODERATE Unless otherwise specified, Testing Performed by: [address] [address] For Inquires, the Physician may contact the Microbiology department at [phone] ANAEROBIC-AEROBIC CULTURE Preliminary Preliminary MIXED AEROBIC AND ANAEROBIC TUCKER on 03/16/21 at 1359 INCLUDING: MANY [PROTEUS MIRABILIS] MANY [ENTEROCOCCUS FAECALIS] MANY [PORPHYROMONAS SOMERAE] PROTEUS MIRABILIS ENTEROCOCCUS FAECALIS PORPHYROMONAS SOMERAE ANTIMICROBIAL SUSCEPTIBILITY Preliminary Comment Comment NEG ROSA 56 PROTEUS MIRABILIS ANTIBIOTIC RESULT INTERPRETATION AMPICILLIN/SULBACTAM <=4/2 S AMIKACIN <=16 S AMPICILLIN <=8 S AMOXICILLIN/K CLAVULANATE <=8/4 S AZTREONAM <=4 S CEFTRIAXONE <=1 S CEFTAZIDIME <=1 S CEFOTAXIME <=2 S RUN DATE: 03/17/21 [facility] *LIVE* PAGE 2 RUN TIME: 826 Specimen Inquiry SPEC: [id number] PATIENT: GERMAINJACKIE [id number] (Continued) Procedure Result CONTINUED ON NEXT PAGE -------- ---- RUN DATE: 03/17/21 [facility] *LIVE* PAGE 3 RUN TIME: 0827 Specimen Inquiry SPEC: [id number] PATIENT: ANNE GROVESJose King [id number] (Continued) Procedure Result ANTIMICROBIAL SUSCEPTIBILITY Preliminary (continued) CEFOXITIN <=8 S CEFAZOLIN <=2 S CIPROFLOXACIN <=0.25 S CEFEPIME <=2 S CEFUROXIME <=4 S CEFTAZIDIME/AVIBACTAM <=4 S ERTAPENEM <=0.5 S GENTAMICIN <=2 S LEVOFLOXACIN <=0.5 S MEROPENEM <=1 S PIPERACILLIN/TAZOBACTAM <=8 S TRIMETHOPRIM/SULFAMETHOXAZOLE <=0.5/9.5 S TETRACYCLINE >8 R TOBRAMYCIN <=2 S Streptomycin Synergy Screen S Gentamicin Synergy Screen S POS ROSA TYPE 38 ENTEROCOCCUS FAECALIS ANTIBIOTIC RESULT INTERPRETATION AMPICILLIN <=2 S DAPTOMYCIN 1 S LINEZOLID 2 S PENICILLIN 2 S VANCOMYCIN 1 S Unless otherwise specified, Testing Performed by: [address] [address] For Inquires, the Physician may contact the Microbiology department at [phone] Objective: Assessment: 1. Chronic nonhealing left lateral leg wound, cellulitis and subcutaneous abscess distal to ulcer, MRI neg for OM. Swab cultures positive for Enterococcus faecalis, Proteus, PORPHYROMONAS SOMERAE 2. Chronic kidney disease, 3. Parkinson's. 4. History of bilateral DVT. March 12, 2021 status post L leg incision and drainage, wound vac application, posterior splint application No deep fascia, tendon or bone involved Plan: Plan of Care 1. Continue linezolid and Zosyn for now. 2 MRI of the left lower extremity results reviewed, no osteomyelitis. 3. Follow-up intraoperative cultures from 03/20/2021 4. Continue local wound care as directed. 5. Monitor labs and cultures. 6. Continue supportive care. 7. Patient is awaiting repeat I&D on Wednesday Discussed with daughter at bedside Discussed with nursing staff. TRAV IBARRA MD Mar 21, 2021 08:28
[2021-03-21] MEDS: FUROSEMIDE 20 MG TABLET PO SCH (08:55)
[2021-03-21] MEDS: FERROUS SULFATE 325 MG TABLET. PO SCH (08:55)
[2021-03-21] MEDS: CHOLECALCIFEROL (VITAMIN D3) 1,000 UNIT TABLET PO SCH (08:55)
[2021-03-21] MEDS: LACTOBACILLUS RHAMNOSUS GG 1 CAPSULE. PO SCH ×2 (08:55→20:58)
[2021-03-21] MEDS: APIXABAN 5 MG TABLET. PO SCH ×2 (08:55→20:58)
[2021-03-21] MEDS: CARBIDOPA/LEVODOPA CR 25/100MG TABLET.SA. PO SCH ×3 (08:55→20:58)
[2021-03-21] MEDS: PRAMIPEXOLE 0.25 MG TABLET. PO SCH ×3 (08:55→20:58)
--- NOTE | 2021-03-21 10:19 | PDOC ---
PROGRESS NOTES Date of Service DATE: 03/21/21 TIME: 10:17 Subjective Subjective feels well. comfortable. eating well. bowels are okay. Objective Objective Vital Signs Date Time Temp Pulse Resp B/P (MAP) Pulse Ox O2 Delivery O2 Flow Rate FiO2 03/21/21 08:56 90 127/69 03/21/21 07:42 Room Air 03/21/21 07:00 97.9 18 94 97.9 03/20/21 08:26 2.0 Intake and Output 03/21/21 07:00 Intake Total 1240 ml Output Total 330 ml Balance 910 ml Intake Oral 840 ml IV Total 400 ml Output Urine Total 320 ml Estimated Blood Loss 10 ml # Voids 3 Physical Exam Abdomen: Soft Heart: Regular rate, Normal S1, Normal S2 Extremities: Other (wound vac LLE with splint) General: Alert HEENT: Atraumatic Lungs: Clear to auscultation Neuro: Normal speech Psych/Mental Status: Mental status NL Skin: No rashes Assessment Assessment Problems Left calf wound which overlies the distal left fibula. wound cultures grew Proteus and enterococcus. MRI neg for osteomyelitis. incision and drainage of wound 03/20/21 3. Chronic kidney disease stage 3. 4. Chronic venous insufficiency of the legs. 5. Parkinson's disease. 6. Anemia of chronic disease. 7. 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 Medical Problems: (1) Osteomyelitis Status: Acute Plan Plan of Care continue zyvox and zosyn continue wound vac resume eliquis intra-operative cultures pending continue sinemet and mirapex PT and OT Comment Review of Relevant I have reviewed the following items cathleen (where applicable) has been applied. Labs Laboratory Tests Test 03/19/21 17:25 Urine Collection Type Unknown Urine Color Yellow Urine Clarity Clear Urine pH 5.5 (<5.0-8.0) Urine Specific [place] 1.010 (1.000-1.030) Urine Protein Negative mg/dL (NEG-TRACE) Urine Glucose (UA) Negative mg/dL (NEG) Urine Ketones (Stick) Negative mg/dL (NEG) Urine Blood Trace (NEG) Urine Nitrite Negative (NEG) Urine Bilirubin Negative (NEG) Urine Urobilinogen Dipstick 0.2 mg/dL (0.2 mg/dL) Urine Leukocyte Esterase Negative (NEG) Urine RBC Occ /HPF (0-2) Urine WBC Occ /HPF (0-4) Urine Squamous Epithelial Cells Few /LPF Urine Bacteria 0 /HPF (0-FEW) Urine Hyaline Casts Few /HPF Urine Mucus Slight /LPF Microbiology 03/20/21 Gram Stain - Final, Resulted 03/20/21 Aerobic and Anaerobic Culture - Preliminary, Resulted 03/14/21 Blood Culture - Final, Complete NO GROWTH AFTER 5 DAYS Medications Current Medications Vancomycin HCl 1.5 gm/Sodium Chloride 500 ml @ 250 mls/hr 1X ONCE IV ; Start 03/14/21 at 11:45; Stop 03/14/21 at 11:35; Status DC Ceftriaxone Sodium (Rocephin) 1 gm 1X ONCE IVP Last administered on 03/14/21at 11:30; Start 03/14/21 at 11:45; Stop 03/14/21 at 11:35; Status DC Piperacillin Sod/ Tazobactam Sod 4.5 gm/Sodium Chloride 100 ml @ 200 mls/hr 1X ONCE IV Last administered on 03/14/21at 11:52; Start 03/14/21 at 12:00; Stop 03/14/21 at 12:29; Status DC Linezolid/Dextrose 300 ml @ 300 mls/hr Q12HR IV Last administered on 03/21/21at 08:56; Start 03/14/21 at 13:00 Piperacillin Sod/ Tazobactam Sod 3.375 gm/Sodium Chloride 50 ml @ 100 mls/hr Q6HRS IV Last administered on 03/15/21at 05:06; Start 03/14/21 at 18:00; Stop 03/15/21 at 09:35; Status DC Acetaminophen (Tylenol) 650 mg PRN Q6HRS PRN PO MILD PAIN / TEMP > 100.3'F Last administered on 03/20/21at 03:05; Start 03/14/21 at 16:00 Carbidopa/Levodopa (Sinemet Cr) 2 tab.sa TID PO Last administered on 03/21/21at 08:55; Start 03/14/21 at 14:00 Apixaban (Eliquis) 2.5 mg BID PO Last administered on 03/19/21at 08:38; Start 03/14/21 at 21:00; Stop 03/19/21 at 15:19; Status DC Ferrous Sulfate (Feosol) 325 mg DAILYWBKFT PO Last administered on 03/21/21at 08:55; Start 03/15/21 at 08:00 Furosemide (Lasix) 20 mg DAILY PO Last administered on 03/21/21at 08:55; Start 03/15/21 at 09:00 Vitamin D (Vitamin D3) 1,000 unit DAILY PO Last administered on 03/21/21at 08 :55; Start 03/15/21 at 09:00 Pramipexole Dihydrochloride (miraPEX) 0.5 mg [id number] PO Last administered on 03/21/21at 08:55; Start 03/14/21 at 16:30 Magnesium Hydroxide (Milk Of Magnesia) 2,400 mg PRN DAILY PRN PO CONSTIPATION; Start 03/14/21 at 16:00 Piperacillin Sod/ Tazobactam Sod (Zosyn Per Pharmacy) 1 each PRN DAILY PRN MC SEE COMMENTS; Start 03/14/21 at 16:15 Piperacillin Sod/ Tazobactam Sod 2.25 gm/Sodium Chloride 50 ml @ 100 mls/hr Q6HRS IV Last administered on 03/21/21at 06:25; Start 03/15/21 at 12:00 Lactobacillus Rhamnosus (Culturelle) 1 cap BID PO Last administered on 03/21/21at 08:55; Start 03/16/21 at 21:00 Gadoterate Meglumine (Clariscan) 15 ml 1X ONCE IVP Last administered on 03/17/21at 09:25; Start 03/17/21 at 09:30; Stop 03/17/21 at 09:31; Status DC Amlodipine Besylate (Norvasc) 2.5 mg DAILY PO Last administered on 03/21/21at 08:56; Start 03/17/21 at 11:00 Fentanyl Citrate (Fentanyl 2ml Vial) 25 mcg PRN Q5MIN PRN IVP MILD PAIN 1-3; Start 03/20/21 at 06:00; Stop 03/21/21 at 05:59; Status DC Fentanyl Citrate (Fentanyl 2ml Vial) 50 mcg PRN Q5MIN PRN IVP MODERATE PAIN 4-6 Last administered on 03/20/21at 08:26; Start 03/20/21 at 06:00; Stop 03/21/21 at 05:59; Status DC Morphine Sulfate (Morphine Sulfate) 1 mg PRN Q10MIN PRN IVP SEVERE PAIN 7-10; Start 03/20/21 at 06:00; Stop 03/21/21 at 05:59; Status DC Ringer's Solution 1,000 ml @ 30 mls/hr Q24H IV Last administered on 03/20/21at 07:00; Start 03/20/21 at 06:00; Stop 03/20/21 at 17:59; Status DC Hydromorphone HCl (Dilaudid) 0.5 mg PRN Q10MIN PRN IVP SEVERE PAIN 7-10, 2nd CHOICE; Start 03/20/21 at 06:00; Stop 03/21/21 at 05:59; Status DC Prochlorperazine Edisylate (Compazine) 5 mg PACU PRN PRN IVP NAUSEA, MRX1; Start 03/20/21 at 06:00; Stop 03/21/21 at 05:59; Status DC Propofol (Diprivan) 200 mg STK-MED ONCE IV ; Start 03/20/21 at 07:01; Stop 03/20/21 at 07:01; Status DC Propofol (Diprivan) 200 mg STK-MED ONCE IV ; Start 03/20/21 at 07:01; Stop 03/20/21 at 07:01; Status DC Fentanyl Citrate (Fentanyl 2ml Vial) 100 mcg STK-MED ONCE .ROUTE ; Start 03/20/21 at 07:02; Stop 03/20/21 at 07:02; Status DC Dexamethasone Sodium Phosphate (Decadron) 4 mg STK-MED ONCE .ROUTE ; Start 03/20/21 at 07:02; Stop 03/20/21 at 07:02; Status DC Ondansetron HCl (Zofran) 4 mg STK-MED ONCE .ROUTE ; Start 03/20/21 at 07:03; Stop 03/20/21 at 07:04; Status DC Lidocaine HCl (Lidocaine Pf 2% Vial) 5 ml STK-MED ONCE .ROUTE ; Start 03/20/21 at 07:03; Stop 03/20/21 at 07:04; Status DC Fentanyl Citrate (Fentanyl 2ml Vial) 100 mcg STK-MED ONCE .ROUTE ; Start 03/20/21 at 07:58; Stop 03/20/21 at 07:58; Status DC Oxycodone/ Acetaminophen (Percocet 5/325) 1 tab 1X ONCE PO Last administered on 03/20/21at 10:25; Start 03/20/21 at 08:15; Stop 03/20/21 at 08:21; Status DC Apixaban (Eliquis) 5 mg BID PO Last administered on 03/21/21at 08:55; Start 03/21/21 at 09:00 Active Scripts Active Furosemide 20 Mg Tablet 20 Mg PO DAILY Eliquis (Apixaban) 5 Mg Tablet 5 Mg PO BID [Fluconazole] 100 MG Tablet 100 Mg PO DAILY 5 Days Zyvox (Linezolid) 600 Mg Tablet 600 Mg PO BID 5 Days Zosyn 2.25 Gm Pre-Mix Bag (Jbhjazcfcgmy-Xrfs-Eefzznzs,Iso) 2.25 Gm/50 Ml Froz.piggy 2.25 Gm IV Q6HRS 5 Days Hydrocodone-Acetamin 5-325 mg (Hydrocodone/Acetaminophen) 1 Each Tablet 1 Each PO Q6HRS PRN Culturelle (Lactobacillus Rhamnosus Gg) 1 Each Cap.sprink 1 Cap PO BID 10 Days Acetaminophen 500 Mg Tablet 500 Mg PO PRN Q4HRS PRN Reported Mirapex (Pramipexole Di-Hcl) 0.25 Mg Tablet 0.5 Mg PO TID Vitamin D3 (Cholecalciferol (Vitamin D3)) 1,000 Unit Tablet 1,000 Unit PO DAILY Sinemet Cr 50-200 Tablet (Carbidopa/Levodopa) 1 Each Tablet.er 1 Tab PO TID Vitals/I & O Vital Sign - Last 24 Hours 03/20/21 03/20/21 03/20/21 03/20/21 10:30 15:15 19:00 19:40 Temp 97.7 97.1 97.8 97.7 97.1 97.8 Pulse 90 69 91 Resp 16 18 18 B/P (MAP) 142/78 (99) 130/71 (90) 131/71 (91) Pulse Ox 97 95 97 O2 Delivery Room Air Room Air Room Air 03/20/21 03/21/21 03/21/21 03/21/21 23:00 03:00 07:00 07:42 Temp 97.9 98.1 97.9 97.9 98.1 97.9 Pulse 93 118 90 Resp 16 20 18 B/P (MAP) 145/80 (101) 168/92 (117) 127/69 (88) Pulse Ox 96 96 94 O2 Delivery Room Air Room Air 03/21/21 08:56 Pulse 90 B/P (MAP) 127/69 Intake and Output 03/20/21 03/20/21 03/21/21 15:00 23:00 07:00 Intake Total 470 ml 410 ml 360 ml Output Total 330 ml Balance 140 ml 410 ml 360 ml Justifications for Admission Other Justification Nutrition Consultation Dietary Evaluation: Recommendations by RD: Dietary education by RD, Increase Calorie Intake, Protein supplementation Comments: regular ensure enlive bid REC mvi and vit c per wound protocal Expected Outcomes/Goals: to meet >75% est nutr needs improved wound status Interpretation of weight loss: >7.5% in 3 months Malnutrition Findings: Food and Nutrition Intake (Mod: <75% est energy req 7days Weight Status: Overweight ELI ROSALES MD Mar 21, 2021 10:19
--- NOTE | 2021-03-21 10:48 | PDOC ---
PROGRESS NOTES Date of Service DATE: 03/21/21 TIME: 10:46 Subjective Subjective Patient was seen resting comfortably in bed. She has been tolerating the dressing, splint, back well. She denies any constitutional symptoms. Objective Objective Vital Signs Date Time Temp Pulse Resp B/P (MAP) Pulse Ox O2 Delivery O2 Flow Rate FiO2 03/21/21 08:56 90 127/69 03/21/21 07:42 Room Air 03/21/21 07:00 97.9 18 94 97.9 03/20/21 08:26 2.0 Intake and Output 03/21/21 07:00 Intake Total 1240 ml Output Total 330 ml Balance 910 ml Intake Oral 840 ml IV Total 400 ml Output Urine Total 320 ml Estimated Blood Loss 10 ml # Voids 3 Physical Exam Physical Exam General: AOx3, pleasant without distress Left lower extremity focused Dermatology: -Dressing is kept clean, dry and intact. Wound VAC is functioning at 125 mmHg continuous -Overnight drainage was minimal, sanguinous drainage Neurology: -Diminished to light touch sensation to digits 1 through 5 Vascular: -Foot is warm to touch -CFT less than 3 seconds Musculoskeletal: -Calf is soft and less tender -Able to move digits and ankle -Popliteal lymph nodes are not tender on palpation Assessment Assessment Problems Medical Problems: (1) Osteomyelitis Status: Acute Plan Plan of Care -S/p 03/20 left leg I&D, wound VAC and posterior splint application. Intraoperative findings remarked necrotic tissue limited to the superficial fascial layer and adipose tissue without violation of the deep fascial layer, tendon/ bone -Per ID, patient is currently on linezolid and Zosyn -Blood culture 03/14 no growth to date -Wound culture 03/14: Proteus, Enterococci, Porphyromonas, GPC -Deep wound culture 03/20: Before and after washout, no growth to date -Dressing: Leave the dressing, clean dry intact, ensure the wound VAC is functioning and 125 mmHg continuous -Ideally, remain nonweightbearing to left lower extremity, however minimal touchdown balance is okay, PT eval and treat -Plan for dressing change on Wednesday -After dressing change, may consider delayed primary closure as early as next Wednesday. Comment Review of Relevant I have reviewed the following items cathleen (where applicable) has been applied. Labs Laboratory Tests Test 03/19/21 17:25 Urine Collection Type Unknown Urine Color Yellow Urine Clarity Clear Urine pH 5.5 (<5.0-8.0) Urine Specific [place] 1.010 (1.000-1.030) Urine Protein Negative mg/dL (NEG-TRACE) Urine Glucose (UA) Negative mg/dL (NEG) Urine Ketones (Stick) Negative mg/dL (NEG) Urine Blood Trace (NEG) Urine Nitrite Negative (NEG) Urine Bilirubin Negative (NEG) Urine Urobilinogen Dipstick 0.2 mg/dL (0.2 mg/dL) Urine Leukocyte Esterase Negative (NEG) Urine RBC Occ /HPF (0-2) Urine WBC Occ /HPF (0-4) Urine Squamous Epithelial Cells Few /LPF Urine Bacteria 0 /HPF (0-FEW) Urine Hyaline Casts Few /HPF Urine Mucus Slight /LPF Microbiology 03/20/21 Gram Stain - Final, Resulted 03/20/21 Aerobic and Anaerobic Culture - Preliminary, Resulted 03/14/21 Blood Culture - Final, Complete NO GROWTH AFTER 5 DAYS Medications Current Medications Vancomycin HCl 1.5 gm/Sodium Chloride 500 ml @ 250 mls/hr 1X ONCE IV ; Start 03/14/21 at 11:45; Stop 03/14/21 at 11:35; Status DC Ceftriaxone Sodium (Rocephin) 1 gm 1X ONCE IVP Last administered on 03/14/21at 11:30; Start 03/14/21 at 11:45; Stop 03/14/21 at 11:35; Status DC Piperacillin Sod/ Tazobactam Sod 4.5 gm/Sodium Chloride 100 ml @ 200 mls/hr 1X ONCE IV Last administered on 03/14/21at 11:52; Start 03/14/21 at 12:00; Stop 03/14/21 at 12:29; Status DC Linezolid/Dextrose 300 ml @ 300 mls/hr Q12HR IV Last administered on 03/21/21at 08:56; Start 03/14/21 at 13:00 Piperacillin Sod/ Tazobactam Sod 3.375 gm/Sodium Chloride 50 ml @ 100 mls/hr Q6HRS IV Last administered on 03/15/21at 05:06; Start 03/14/21 at 18:00; Stop 03/15/21 at 09:35; Status DC Acetaminophen (Tylenol) 650 mg PRN Q6HRS PRN PO MILD PAIN / TEMP > 100.3'F Last administered on 03/20/21at 03:05; Start 03/14/21 at 16:00 Carbidopa/Levodopa (Sinemet Cr) 2 tab.sa TID PO Last administered on 03/21/21 08:55; Start 03/14/21 at 14:00 Apixaban (Eliquis) 2.5 mg BID PO Last administered on 03/19/21at 08:38; Start 03/14/21 at 21:00; Stop 03/19/21 at 15:19; Status DC Ferrous Sulfate (Feosol) 325 mg DAILYWBKFT PO Last administered on 03/21/21 08:55; Start 03/15/21 at 08:00 Furosemide (Lasix) 20 mg DAILY PO Last administered on 03/21/21 08:55; Start 03/15/21 at 09:00 Vitamin D (Vitamin D3) 1,000 unit DAILY PO Last administered on 03/21/21 08:55; Start 03/15/21 at 09:00 Pramipexole Dihydrochloride (miraPEX) 0.5 mg [id number] PO Last administered on 03/21/21at 08:55; Start 03/14/21 at 16:30 Magnesium Hydroxide (Milk Of Magnesia) 2,400 mg PRN DAILY PRN PO CONSTIPATION; Start 03/14/21 at 16:00 Piperacillin Sod/ Tazobactam Sod (Zosyn Per Pharmacy) 1 each PRN DAILY PRN MC SEE COMMENTS; Start 03/14/21 at 16:15 Piperacillin Sod/ Tazobactam Sod 2.25 gm/Sodium Chloride 50 ml @ 100 mls/hr Q6HRS IV Last administered on 03/21/21at 06:25; Start 03/15/21 at 12:00 Lactobacillus Rhamnosus (Culturelle) 1 cap BID PO Last administered on 03/21/21 08:55; Start 03/16/21 at 21:00 Gadoterate Meglumine (Clariscan) 15 ml 1X ONCE IVP Last administered on 03/17/21at 09:25; Start 03/17/21 at 09:30; Stop 03/17/21 at 09:31; Status DC Amlodipine Besylate (Norvasc) 2.5 mg DAILY PO Last administered on 10/29/21at 08:56; Start 03/17/21 at 11:00 Fentanyl Citrate (Fentanyl 2ml Vial) 25 mcg PRN Q5MIN PRN IVP MILD PAIN 1-3; Start 03/20/21 at 06:00; Stop 03/21/21 at 05:59; Status DC Fentanyl Citrate (Fentanyl 2ml Vial) 50 mcg PRN Q5MIN PRN IVP MODERATE PAIN 4-6 Last administered on 03/20/21at 08:26; Start 03/20/21 at 06:00; Stop 03/21/21 at 05:59; Status DC Morphine Sulfate (Morphine Sulfate) 1 mg PRN Q10MIN PRN IVP SEVERE PAIN 7-10; Start 03/20/21 at 06:00; Stop 03/21/21 at 05:59; Status DC Ringer's Solution 1,000 ml @ 30 mls/hr Q24H IV Last administered on 03/20/21at 07:00; Start 03/20/21 at 06:00; Stop 03/20/21 at 17:59; Status DC Hydromorphone HCl (Dilaudid) 0.5 mg PRN Q10MIN PRN IVP SEVERE PAIN 7-10, 2nd CHOICE; Start 03/20/21 at 06:00; Stop 03/21/21 at 05:59; Status DC Prochlorperazine Edisylate (Compazine) 5 mg PACU PRN PRN IVP NAUSEA, MRX1; Start 03/20/21 at 06:00; Stop 03/21/21 at 05:59; Status DC Propofol (Diprivan) 200 mg STK-MED ONCE IV ; Start 03/20/21 at 07:01; Stop 03/20/21 at 07:01; Status DC Propofol (Diprivan) 200 mg STK-MED ONCE IV ; Start 03/20/21 at 07:01; Stop 03/20/21 at 07:01; Status DC Fentanyl Citrate (Fentanyl 2ml Vial) 100 mcg STK-MED ONCE .ROUTE ; Start 03/20/21 at 07:02; Stop 03/20/21 at 07:02; Status DC Dexamethasone Sodium Phosphate (Decadron) 4 mg STK-MED ONCE .ROUTE ; Start 03/20/21 at 07:02; Stop 03/20/21 at 07:02; Status DC Ondansetron HCl (Zofran) 4 mg STK-MED ONCE .ROUTE ; Start 03/20/21 at 07:03; Stop 03/20/21 at 07:04; Status DC Lidocaine HCl (Lidocaine Pf 2% Vial) 5 ml STK-MED ONCE .ROUTE ; Start 03/20/21 at 07:03; Stop 03/20/21 at 07:04; Status DC Fentanyl Citrate (Fentanyl 2ml Vial) 100 mcg STK-MED ONCE .ROUTE ; Start 03/20/21 at 07:58; Stop 03/20/21 at 07:58; Status DC Oxycodone/ Acetaminophen (Percocet 5/325) 1 tab 1X ONCE PO Last administered on 03/20/21at 10:25; Start 03/20/21 at 08:15; Stop 03/20/21 at 08:21; Status DC Apixaban (Eliquis) 5 mg BID PO Last administered on 03/21/21at 08:55; Start 03/21/21 at 09:00 Active Scripts Active Furosemide 20 Mg Tablet 20 Mg PO DAILY Eliquis (Apixaban) 5 Mg Tablet 5 Mg PO BID [Fluconazole] 100 MG Tablet 100 Mg PO DAILY 5 Days Zyvox (Linezolid) 600 Mg Tablet 600 Mg PO BID 5 Days Zosyn 2.25 Gm Pre-Mix Bag (Zalmoqntsbsv-Gzkc-Hnnvcxcn,Iso) 2.25 Gm/50 Ml Froz.piggy 2.25 Gm IV Q6HRS 5 Days Hydrocodone-Acetamin 5-325 mg (Hydrocodone/Acetaminophen) 1 Each Tablet 1 Each PO Q6HRS PRN Culturelle (Lactobacillus Rhamnosus Gg) 1 Each Cap.sprink 1 Cap PO BID 10 Days Acetaminophen 500 Mg Tablet 500 Mg PO PRN Q4HRS PRN Reported Mirapex (Pramipexole Di-Hcl) 0.25 Mg Tablet 0.5 Mg PO TID Vitamin D3 (Cholecalciferol (Vitamin D3)) 1,000 Unit Tablet 1,000 Unit PO DAILY Sinemet Cr 50-200 Tablet (Carbidopa/Levodopa) 1 Each Tablet.er 1 Tab PO TID Vitals/I & O Vital Sign - Last 24 Hours 03/20/21 03/20/21 03/20/21 03/20/21 15:15 19:00 19:40 23:00 Temp 97.1 97.8 97.9 97.1 97.8 97.9 Pulse 69 91 93 Resp 18 18 16 B/P (MAP) 130/71 (90) 131/71 (91) 145/80 (101) Pulse Ox 95 97 96 O2 Delivery Room Air Room Air 03/21/21 03/21/21 03/21/21 03/21/21 03:00 07:00 07:42 08:56 Temp 98.1 97.9 98.1 97.9 Pulse 118 90 90 Resp 20 18 B/P (MAP) 168/92 (117) 127/69 (88) 127/69 Pulse Ox 96 94 O2 Delivery Room Air Room Air Intake and Output 03/20/21 03/20/21 03/21/21 15:00 23:00 07:00 Intake Total 470 ml 410 ml 360 ml Output Total 330 ml Balance 140 ml 410 ml 360 ml Justifications for Admission Other Justification Nutrition Consultation Dietary Evaluation: Recommendations by RD: Dietary education by RD, Increase Calorie Intake, Protein supplementation Comments: regular ensure enlive bid REC mvi and vit c per wound protocal Expected Outcomes/Goals: to meet >75% est nutr needs improved wound status Interpretation of weight loss: >7.5% in 3 months Malnutrition Findings: Food and Nutrition Intake (Mod: <75% est energy req 7days Weight Status: Overweight HEATHER KOCH DPM Mar 21, 2021 10:47
[2021-03-21 11:25] VITALS: BP 119/85
[2021-03-21 15:06] VITALS: BP 132/75
--- NOTE | 2021-03-21 18:22 | PATHOLOGY ---
[facility] Accession Number: [id number] . 01 Material submitted: . leg - LEFT LOWER LEG DEEP TISSUE FASCIA. Modifiers: left, lower . 01 Clinical history: . I AND D LEFT LEG WOUND CHECK . 02 Diagnosis: Segments of fibrous and granulation tissue, left leg incision and drainage: - Acute cellulitis/abscess. (JPM:michelle; 03/21/2021) QMS 03/21/2021 1232 Local . 02 Comment: There is no evidence of malignancy. (JPM:michelle; 03/21/2021) . 02 Electronically signed: . Jase Langston MD, Pathologist NPI- [id number] . 01 Gross description: . The specimen is received in formalin, labeled "Mercedez Krishnamurthy, left lower leg deep tissue fascia". Received are multiple segments of light post to dark post tissue measuring 2.0 x 0.9 x 0.1 cm in aggregate dimensions. The specimen is filtered and entirely submitted in cassette A1.([facility]; 03/20/2021) [facility] 03/20/2021 1540 Local . 02 Pathologist provided ICD-10: L03.116 . 02 CPT . 850209 Specimen Comment: A courtesy copy of this report has been sent to [phone] Specimen Comment: Report sent to Specimen Comment: A duplicate report has been generated due to demographic updates. Performed at: 01 [facility] [address], [place] [id number] MD Vinicius Galindo MD Phone: [phone] Performed at: 02 [facility] [address] [place], [place] [id number] MD Jase Langston MD Phone: [phone]
[2021-03-21 19:20] VITALS: BP 121/64
[2021-03-21 23:01] VITALS: BP 156/80
[2021-03-22 03:03] VITALS: BP 161/77
[2021-03-22] MEDS: PIPERACILLIN/TAZOBACTAM 2.25 GM in IV NORMAL SALINE 50ML 50 ML IV SCH ×3 (05:20→17:57)
[2021-03-22] MEDS: ACETAMINOPHEN 325 MG TABLET. PO PRN (05:30)
[2021-03-22 07:00] VITALS: BP 130/72
--- NOTE | 2021-03-22 08:07 | PDOC ---
Infectious Disease Note Subjective: Subjective Patient feels better Left leg pain is under control Seen wound with Dr. Jin Vital Signs: Vital Signs Vital Signs Date Time Temp Pulse Resp B/P (MAP) Pulse Ox O2 Delivery O2 Flow Rate FiO2 03/22/21 03:03 98.1 67 18 161/77 (105) 96 Room Air 98.1 Physical Exam: PHYSICAL EXAM GENERAL: AXOX3 female in nad HEENT: Normocephalic, atraumatic. Anicteric. Oral mucosa moist. NECK: Supple. LUNGS: Clear bilaterally. HEART: S1, S2. ABDOMEN: Soft, nontender, bowel sounds present. EXTREMITIES: Right lower extremity has edema, 1-2+ edema of the left lower extremity. There is 2 open wound lateral aspect of foot, seen with Dr. Jin appears clean, no purulence, healthy granulation tissue DERMATOLOGIC: Warm, dry, no generalized rash except for above. NEUROLOGIC: Alert, oriented x 3, grossly nonfocal. PSYCHIATRIC: Calm and cooperative.. Medications: Inpatient Meds: Medications reviewed. Labs: Micro RUN DATE: 03/17/21 [facility] *LIVE* PAGE 1 RUN TIME: 826 Specimen Inquiry PATIENT: JACKIE GROVES ACCT: [id number] LOC: [address] [place] [address] U: [id number] AGE/SX: 86/F ROOM: 408 RE03/14/[address]: ELI ROSALES MD : 1935 BED: 1 DIS: STATUS: ADM IN TLOC: SPEC #: [id number] JASMIN: 03/14/21 STATUS: RES REQ #: [id number] RECD: 03/14/[address] [facility] [address]: ELI ROSALES MD SOURCE: LEG ENTR: 03/14/[address]: EZRA RUIZ MD SPDESC: WOUND ALICIAWOLNai,ELI CARTER,STACEY Garcia MD ORDERED: BAM/AEROB/GS COMMENTS: LEFT LOWER LEG WOUND Procedure Result GRAM STAIN Final Final GRAM NEGATIVE RODS:FEW GRAM POSITIVE COCCI:RARE SQUAMOUS EPI CELL:NONE SEEN PMN (WBCs):MODERATE Unless otherwise specified, Testing Performed by: [address] [address] For Inquires, the Physician may contact the Microbiology department at [phone] ANAEROBIC-AEROBIC CULTURE Preliminary Preliminary MIXED AEROBIC AND ANAEROBIC TUCKER on 03/16/21 at 1359 INCLUDING: MANY [PROTEUS MIRABILIS] MANY [ENTEROCOCCUS FAECALIS] MANY [PORPHYROMONAS SOMERAE] PROTEUS MIRABILIS ENTEROCOCCUS FAECALIS PORPHYROMONAS SOMERAE ANTIMICROBIAL SUSCEPTIBILITY Preliminary Comment Comment NEG ROSA 56 PROTEUS MIRABILIS ANTIBIOTIC RESULT INTERPRETATION AMPICILLIN/SULBACTAM <=4/2 S AMIKACIN <=16 S AMPICILLIN <=8 S AMOXICILLIN/K CLAVULANATE <=8/4 S AZTREONAM <=4 S CEFTRIAXONE <=1 S CEFTAZIDIME <=1 S CEFOTAXIME <=2 S RUN DATE: 03/17/21 [facility] *LIVE* PAGE 2 RUN TIME: 826 Specimen Inquiry SPEC: [id number] PATIENT: JACKIE GROVES Christine [id number] (Continued) Procedure Result CONTINUED ON NEXT PAGE RUN DATE: 03/17/21 [facility] *LIVE* PAGE 3 RUN TIME: 0827 Specimen Inquiry SPEC: [id number] PATIENT: ANNE GROVESJose King [id number] (Continued) Procedure Result ANTIMICROBIAL SUSCEPTIBILITY Preliminary (continued) CEFOXITIN <=8 S CEFAZOLIN <=2 S CIPROFLOXACIN <=0.25 S CEFEPIME <=2 S CEFUROXIME <=4 S CEFTAZIDIME/AVIBACTAM <=4 S ERTAPENEM <=0.5 S GENTAMICIN <=2 S LEVOFLOXACIN <=0.5 S MEROPENEM <=1 S PIPERACILLIN/TAZOBACTAM <=8 S TRIMETHOPRIM/SULFAMETHOXAZOLE <=0.5/9.5 S TETRACYCLINE >8 R TOBRAMYCIN <=2 S Streptomycin Synergy Screen S Gentamicin Synergy Screen S POS ROSA TYPE 38 ENTEROCOCCUS FAECALIS ANTIBIOTIC RESULT INTERPRETATION AMPICILLIN <=2 S DAPTOMYCIN 1 S LINEZOLID 2 S PENICILLIN 2 S VANCOMYCIN 1 S Unless otherwise specified, Testing Performed by: [address] [address] For Inquires, the Physician may contact the Microbiology department at [phone] Objective: Assessment: 1. Chronic nonhealing left lateral leg wound, cellulitis and subcutaneous a bscess distal to ulcer, MRI neg for OM. Swab cultures positive for Enterococcus faecalis, Proteus, PORPHYROMONAS SOMERAE 2. Chronic kidney disease, 3. Parkinson's. 4. History of bilateral DVT. March 20, 2021 status post L leg incision and drainage, wound vac application, posterior splint application No deep fascia, tendon or bone involved Operative cultures are pending Plan: Plan of Care 1. Continue linezolid and Zosyn for now. 2 Monitor labs and cultures. 3. Wound care as directed/activity as directed Discussed with Dr. Jin Discussed with daughter at bedside on 03/21/2021 Discussed with nursing staff. TRAV IBARRA MD Mar 22, 2021 08:06
--- NOTE | 2021-03-22 10:05 | PDOC ---
PROGRESS NOTES Date of Service DATE: 03/22/21 TIME: 10:03 Subjective Subjective feels okay. repeat wound cultures negative so far Objective Objective Vital Signs Date Time Temp Pulse Resp B/P (MAP) Pulse Ox O2 Delivery O2 Flow Rate FiO2 03/22/21 07:00 98.1 84 16 130/72 (91) 93 Room Air 98.1 03/20/21 08:26 2.0 Intake and Output 03/22/21 07:00 Intake Total 950 ml Balance 950 ml Intake Oral 950 ml # Voids 3 # Bowel Movements 1 Physical Exam Abdomen: Soft Heart: Regular rate, Normal S1, Normal S2 Extremities: Other (LLE splint with wound vac) General: Alert HEENT: Atraumatic Lungs: Clear to auscultation Neuro: Normal speech Psych/Mental Status: Mood NL Skin: No rashes Assessment Assessment ProblemsLeft calf wound which overlies the distal left fibula. wound cultures grew Proteus and enterococcus. MRI neg for osteomyelitis. incision and drainage of wound 03/20/21 3. Chronic kidney disease stage 3. 4. Chronic venous insufficiency of the legs. 5. Parkinson's disease. 6. Anemia of chronic disease. 7. 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 Medical Problems: (1) Osteomyelitis Status: Acute Plan Plan of Care primary wound closure possibly on 03/26 continue zyvox and zosyn continue sinemet and mirapex continue PT and OT continue eliquis Comment Review of Relevant I have reviewed the following items cathleen (where applicable) has been applied. Labs Microbiology 03/20/21 Gram Stain - Final, Resulted 03/20/21 Aerobic and Anaerobic Culture - Preliminary, Resulted 03/14/21 Blood Culture - Final, Complete NO GROWTH AFTER 5 DAYS Medications Current Medications Vancomycin HCl 1.5 gm/Sodium Chloride 500 ml @ 250 mls/hr 1X ONCE IV ; Start 03/14/21 at 11:45; Stop 03/14/21 at 11:35; Status DC Ceftriaxone Sodium (Rocephin) 1 gm 1X ONCE IVP Last administered on 03/14/21at 11:30; Start 03/14/21 at 11:45; Stop 03/14/21 at 11:35; Status DC Piperacillin Sod/ Tazobactam Sod 4.5 gm/Sodium Chloride 100 ml @ 200 mls/hr 1X ONCE IV Last administered on 03/14/21at 11:52; Start 03/14/21 at 12:00; Stop 03/14/21 at 12:29; Status DC Linezolid/Dextrose 300 ml @ 300 mls/hr Q12HR IV Last administered on 03/21/21at 20:57; Start 03/14/21 at 13:00 Piperacillin Sod/ Tazobactam Sod 3.375 gm/Sodium Chloride 50 ml @ 100 mls/hr Q6HRS IV Last administered on 03/15/21at 05:06; Start 03/14/21 at 18:00; Stop 03/15/21 at 09:35; Status DC Acetaminophen (Tylenol) 650 mg PRN Q6HRS PRN PO MILD PAIN / TEMP > 100.3'F Last administered on 03/22/21at 05:30; Start 03/14/21 at 16:00 Carbidopa/Levodopa (Sinemet Cr) 2 tab.sa TID PO Last administered on 03/21/21at 20:58; Start 03/14/21 at 14:00 Apixaban (Eliquis) 2.5 mg BID PO Last administered on 03/19/21at 08:38; Start 03/14/21 at 21:00; Stop 03/19/21 at 15:19; Status DC Ferrous Sulfate (Feosol) 325 mg DAILYWBKFT PO Last administered on 03/21/21at 08:55; Start 03/15/21 at 08:00 Furosemide (Lasix) 20 mg DAILY PO Last administered on 03/21/21at 08:55; Start 03/15/21 at 09:00 Vitamin D (Vitamin D3) 1,000 unit DAILY PO Last administered on 03/21/21at 08:55; Start 03/15/21 at 09:00 Pramipexole Dihydrochloride (miraPEX) 0.5 mg [id number] PO Last administered on 03/21/21at 20:58; Start 03/14/21 at 16:30 Magnesium Hydroxide (Milk Of Magnesia) 2,400 mg PRN DAILY PRN PO CONSTIPATION; Start 03/14/21 at 16:00 Piperacillin Sod/ Tazobactam Sod (Zosyn Per Pharmacy) 1 each PRN DAILY PRN MC SEE COMMENTS; Start 03/14/21 at 16:15 Piperacillin Sod/ Tazobactam Sod 2.25 gm/Sodium Chloride 50 ml @ 100 mls/hr Q6HRS IV Last administered on 03/22/21at 05:20; Start 03/15/21 at 12:00 Lactobacillus Rhamnosus (Culturelle) 1 cap BID PO Last administered on 03/21/21at 20:58; Start 03/16/21 at 21:00 Gadoterate Meglumine (Clariscan) 15 ml 1X ONCE IVP Last administered on 03/17at 09:25; Start 03/17/21 at 09:30; Stop 03/17/21 at 09:31; Status DC Amlodipine Besylate (Norvasc) 2.5 mg DAILY PO Last administered on 03/21/21at 08:56; Start 03/17/21 at 11:00 Fentanyl Citrate (Fentanyl 2ml Vial) 25 mcg PRN Q5MIN PRN IVP MILD PAIN 1-3; Start 03/20/21 at 06:00; Stop 03/21/21 at 05:59; Status DC Fentanyl Citrate (Fentanyl 2ml Vial) 50 mcg PRN Q5MIN PRN IVP MODERATE PAIN 4-6 Last administered on 03/20/21at 08:26; Start 03/20/21 at 06:00; Stop 03/21/21 at 05:59; Status DC Morphine Sulfate (Morphine Sulfate) 1 mg PRN Q10MIN PRN IVP SEVERE PAIN 7-10; Start 03/20/21 at 06:00; Stop 03/21/21 at 05:59; Status DC Ringer's Solution 1,000 ml @ 30 mls/hr Q24H IV Last administered on 03/20/21at 07:00; Start 03/20/21 at 06:00; Stop 03/20/21 at 17:59; Status DC Hydromorphone HCl (Dilaudid) 0.5 mg PRN Q10MIN PRN IVP SEVERE PAIN 7-10, 2nd CHOICE; Start 03/20/21 at 06:00; Stop 03/21/21 at 05:59; Status DC Prochlorperazine Edisylate (Compazine) 5 mg PACU PRN PRN IVP NAUSEA, MRX1; Start 03/20/21 at 06:00; Stop 03/21/21 at 05:59; Status DC Propofol (Diprivan) 200 mg STK-MED ONCE IV ; Start 03/20/21 at 07:01; Stop 03/20/21 at 07:01; Status DC Propofol (Diprivan) 200 mg STK-MED ONCE IV ; Start 03/20/21 at 07:01; Stop 03/20/21 at 07:01; Status DC Fentanyl Citrate (Fentanyl 2ml Vial) 100 mcg STK-MED ONCE .ROUTE ; Start 03/20/21 at 07:02; Stop 03/20/21 at 07:02; Status DC Dexamethasone Sodium Phosphate (Decadron) 4 mg STK-MED ONCE .ROUTE ; Start 03/20/21 at 07:02; Stop 03/20/21 at 07:02; Status DC Ondansetron HCl (Zofran) 4 mg STK-MED ONCE .ROUTE ; Start 03/20/21 at 07:03; Stop 03/20/21 at 07:04; Status DC Lidocaine HCl (Lidocaine Pf 2% Vial) 5 ml STK-MED ONCE .ROUTE ; Start 03/20/21 at 07:03; Stop 03/20/21 at 07:04; Status DC Fentanyl Citrate (Fentanyl 2ml Vial) 100 mcg STK-MED ONCE .ROUTE ; Start 03/20/21 at 07:58; Stop 03/20/21 at 07:58; Status DC Oxycodone/ Acetaminophen (Percocet 5/325) 1 tab 1X ONCE PO Last administered on 03/20/21at 10:25; Start 03/20/21 at 08:15; Stop 03/20/21 at 08:21; Status DC Apixaban (Eliquis) 5 mg BID PO Last administered on 03/21/21at 20:58; Start 03/21/21 at 09:00 Active Scripts Active Furosemide 20 Mg Tablet 20 Mg PO DAILY Eliquis (Apixaban) 5 Mg Tablet 5 Mg PO BID [Fluconazole] 100 MG Tablet 100 Mg PO DAILY 5 Days Zyvox (Linezolid) 600 Mg Tablet 600 Mg PO BID 5 Days Zosyn 2.25 Gm Pre-Mix Bag (Xlwzfylrhyar-Tasy-Fbqdgamu,Iso) 2.25 Gm/50 Ml Froz.piggy 2.25 Gm IV Q6HRS 5 Days Hydrocodone-Acetamin 5-325 mg (Hydrocodone/Acetaminophen) 1 Each Tablet 1 Each PO Q6HRS PRN Culturelle (Lactobacillus Rhamnosus Gg) 1 Each Cap.sprink 1 Cap PO BID 10 Days Acetaminophen 500 Mg Tablet 500 Mg PO PRN Q4HRS PRN Reported Mirapex (Pramipexole Di-Hcl) 0.25 Mg Tablet 0.5 Mg PO TID Vitamin D3 (Cholecalciferol (Vitamin D3)) 1,000 Unit Tablet 1,000 Unit PO DAILY Sinemet Cr 50-200 Tablet (Carbidopa/Levodopa) 1 Each Tablet.er 1 Tab PO TID Vitals/I & O Vital Sign - Last 24 Hours 03/21/21 03/21/21 03/21/21 03/21/21 11:25 15:06 19:20 20:00 Temp 98.6 97.6 98.1 98.6 97.6 98.1 Pulse 85 95 85 Resp 18 18 20 B/P (MAP) 119/85 (96) 132/75 (94) 121/64 (83) Pulse Ox 96 92 100 O2 Delivery Room Air Room Air Room Air Room Air 03/21/21 03/22/21 03/22/21 23:01 03:03 07:00 Temp 97.5 98.1 98.1 97.5 98.1 98.1 Pulse 81 67 84 Resp 18 18 16 B/P (MAP) 156/80 (105) 161/77 (105) 130/72 (91) Pulse Ox 96 96 93 O2 Delivery Room Air Room Air Room Air Intake and Output 03/21/21 03/21/21 03/22/21 15:00 23:00 07:00 Intake Total 370 ml 100 ml 480 ml Balance 370 ml 100 ml 480 ml Justifications for Admission Other Justification Nutrition Consultation Dietary Evaluation: Recommendations by RD: Dietary education by RD, Increase Calorie Intake, Protein supplementation Comments: regular ensure enlive bid REC mvi and vit c per wound protocal Expected Outcomes/Goals: to meet >75% est nutr needs improved wound status Interpretation of weight loss: >7.5% in 3 months Malnutrition Findings: Food and Nutrition Intake (Mod: <75% est energy req 7days Weight Status: Overweight ELI ROSALES MD Mar 22, 2021 10:05
[2021-03-22 11:00] VITALS: BP 150/72
[2021-03-22] MEDS: CARBIDOPA/LEVODOPA CR 25/100MG TABLET.SA. PO SCH ×3 (11:03→21:32)
[2021-03-22] MEDS: LACTOBACILLUS RHAMNOSUS GG 1 CAPSULE. PO SCH ×2 (11:03→21:00)
[2021-03-22] MEDS: APIXABAN 5 MG TABLET. PO SCH ×2 (11:04→21:32)
[2021-03-22] MEDS: FERROUS SULFATE 325 MG TABLET. PO SCH (11:04)
[2021-03-22] MEDS: CHOLECALCIFEROL (VITAMIN D3) 1,000 UNIT TABLET PO SCH (11:04)
[2021-03-22] MEDS: FUROSEMIDE 20 MG TABLET PO SCH (11:04)
[2021-03-22] MEDS: PRAMIPEXOLE 0.25 MG TABLET. PO SCH ×3 (11:08→21:33)
--- NOTE | 2021-03-22 11:17 | PDOC ---
PROGRESS NOTES Date of Service DATE: 03/22/21 TIME: 11:12 Subjective Subjective Patient was seen resting comfortably in bed. She has been tolerating the wound VAC and dressing well. She has been working with PT well. She denies any constitutional symptoms. Objective Objective Vital Signs Date Time Temp Pulse Resp B/P (MAP) Pulse Ox O2 Delivery O2 Flow Rate FiO2 03/22/21 11:03 84 132/72 03/22/21 07:00 98.1 16 93 Room Air 98.1 03/20/21 08:26 2.0 Intake and Output 03/22/21 07:00 Intake Total 950 ml Balance 950 ml Intake Oral 950 ml # Voids 3 # Bowel Movements 1 Physical Exam Physical Exam General: AOx3, pleasant without distress Left lower extremity focused Dermatology: -Dressing is kept clean, dry and intact. Wound VAC is functioning at 125 mmHg continuous -Overnight drainage was minimal, sanguinous drainage -After dressing change, the wound bed appeared granular without purulence, proximal streaking, or any residual necrotic changes. -Skin island between the wound and incision wound is slightly ischemic concernin g for survivorship. Otherwise, there is no periwound erythema, edema Neurology: -Diminished to light touch sensation to digits 1 through 5 Vascular: -Foot is warm to touch -CFT less than 3 seconds Musculoskeletal: -Calf is soft and less tender -No TTP along the peroneal tendons distally or proximally -No TTP along the Achilles tendon -Able to move digits and ankle -Popliteal lymph nodes are not tender on palpation Assessment Assessment Problems Medical Problems: (1) Osteomyelitis Status: Acute Plan Plan of Care -S/p 03/20 left leg I&D, wound VAC and posterior splint application. Intraoperative findings remarked necrotic tissue limited to the superficial fascial layer and adipose tissue without violation of the deep fascial layer, tendon/ bone -Per ID, patient is currently on linezolid and Zosyn -Blood culture 03/14: NEG -Wound culture 03/14: Proteus, Enterococci, Porphyromonas, GPC -Deep wound culture 03/20: Before and after washout, NEG -Dressing: the wound VAC was reapplied and functioning at 125 mmHg continuous. The left lower extremity was immobilized in a posterior splint, well-padded with ankle held at 90 degrees -Ideally, remain nonweightbearing to left lower extremity, however minimal touchdown balance is okay, PT eval and treat Dispo: Clinically, the source is controlled without residual infection to the distal leg. However the challenges with soft tissue closure especially given the questionable survivorship of the skin island between the wound and the posterior incision wound. Plan for delayed wound closure, possible reapply of the wound VAC, skin graft on next Wednesday. N.p.o. after midnight on Wednesday. Comment Review of Relevant I have reviewed the following items cathleen (where applicable) has been applied. Labs Microbiology 03/20/21 Gram Stain - Final, Resulted 03/20/21 Aerobic and Anaerobic Culture - Preliminary, Resulted 03/14/21 Blood Culture - Final, Complete NO GROWTH AFTER 5 DAYS Medications Current Medications Vancomycin HCl 1.5 gm/Sodium Chloride 500 ml @ 250 mls/hr 1X ONCE IV ; Start 03/14/21 at 11:45; Stop 03/14/21 at 11:35; Status DC Ceftriaxone Sodium (Rocephin) 1 gm 1X ONCE IVP Last administered on 03/14/21at 11:30; Start 03/14/21 at 11:45; Stop 03/14/21 at 11:35; Status DC Piperacillin Sod/ Tazobactam Sod 4.5 gm/Sodium Chloride 100 ml @ 200 mls/hr 1X ONCE IV Last administered on 03/14/21at 11:52; Start 03/14/21 at 12:00; Stop 03/14/21 at 12:29; Status DC Linezolid/Dextrose 300 ml @ 300 mls/hr Q12HR IV Last administered on 03/22/21at 11:04; Start 03/14/21 at 13:00 Piperacillin Sod/ Tazobactam Sod 3.375 gm/Sodium Chloride 50 ml @ 100 mls/hr Q6HRS IV Last administered on 03/15/21at 05:06; Start 03/14/21 at 18:00; Stop 03/15/21 at 09:35; Status DC Acetaminophen (Tylenol) 650 mg PRN Q6HRS PRN PO MILD PAIN / TEMP > 100.3'F Last administered on 03/22/21at 05:30; Start 03/14/21 at 16:00 Carbidopa/Levodopa (Sinemet Cr) 2 tab.sa TID PO Last administered on 03/22/21at 11:03; Start 03/14/21 at 14:00 Apixaban (Eliquis) 2.5 mg BID PO Last administered on 03/19/21at 08:38; Start 03/14/21 at 21:00; Stop 03/19/21 at 15:19; Status DC Ferrous Sulfate (Feosol) 325 mg DAILYWBKFT PO Last administered on 03/22/21at 11:04; Start 03/15/21 at 08:00 Furosemide (Lasix) 20 mg DAILY PO Last administered on 03/22/21at 11:04; Start 03/15/21 at 09:00 Vitamin D (Vitamin D3) 1,000 unit DAILY PO Last administered on 03/22/21 11:04; Start 03/15/21 at 09:00 Pramipexole Dihydrochloride (miraPEX) 0.5 mg [id number] PO Last administered on at 11:08; Start 03/14/21 at 16:30 Magnesium Hydroxide (Milk Of Magnesia) 2,400 mg PRN DAILY PRN PO CONSTIPATION; Start 03/14/21 at 16:00 Piperacillin Sod/ Tazobactam Sod (Zosyn Per Pharmacy) 1 each PRN DAILY PRN MC SEE COMMENTS; Start 03/14/21 at 16:15 Piperacillin Sod/ Tazobactam Sod 2.25 gm/Sodium Chloride 50 ml @ 100 mls/hr Q6HRS IV Last administered on 03/22/21at 05:20; Start 03/15/21 at 12:00 Lactobacillus Rhamnosus (Culturelle) 1 cap BID PO Last administered on 03/22/21at 11:03; Start 03/16/21 at 21:00 Gadoterate Meglumine (Clariscan) 15 ml 1X ONCE IVP Last administered on 03/17/21at 09:25; Start 03/17/21 at 09:30; Stop 03/17/21 at 09:31; Status DC Amlodipine Besylate (Norvasc) 2.5 mg DAILY PO Last administered on 03/22/21at 11:03; Start 03/17/21 at 11:00 Fentanyl Citrate (Fentanyl 2ml Vial) 25 mcg PRN Q5MIN PRN IVP MILD PAIN 1-3; Start 03/20/21 at 06:00; Stop 03/21/21 at 05:59; Status DC Fentanyl Citrate (Fentanyl 2ml Vial) 50 mcg PRN Q5MIN PRN IVP MODERATE PAIN 4-6 Last administered on 03/20/21at 08:26; Start 03/20/21 at 06:00; Stop 03/21/21 at 05:59; Status DC Morphine Sulfate (Morphine Sulfate) 1 mg PRN Q10MIN PRN IVP SEVERE PAIN 7-10; Start 03/20/21 at 06:00; Stop 03/21/21 at 05:59; Status DC Ringer's Solution 1,000 ml @ 30 mls/hr Q24H IV Last administered on 03/20/21at 07:00; Start 03/20/21 at 06:00; Stop 03/20/21 at 17:59; Status DC Hydromorphone HCl (Dilaudid) 0.5 mg PRN Q10MIN PRN IVP SEVERE PAIN 7-10, 2nd CHOICE; Start 03/20/21 at 06:00; Stop 03/21/21 at 05:59; Status DC Prochlorperazine Edisylate (Compazine) 5 mg PACU PRN PRN IVP NAUSEA, MRX1; Start 03/20/21 at 06:00; Stop 03/21/21 at 05:59; Status DC Propofol (Diprivan) 200 mg STK-MED ONCE IV ; Start 03/20/21 at 07:01; Stop 03/20/21 at 07:01; Status DC Propofol (Diprivan) 200 mg STK-MED ONCE IV ; Start 03/20/21 at 07:01; Stop 03/20/21 at 07:01; Status DC Fentanyl Citrate (Fentanyl 2ml Vial) 100 mcg STK-MED ONCE .ROUTE ; Start 03/20/21 at 07:02; Stop 03/20/21 at 07:02; Status DC Dexamethasone Sodium Phosphate (Decadron) 4 mg STK-MED ONCE .ROUTE ; Start 03/20/21 at 07:02; Stop 03/20/21 at 07:02; Status DC Ondansetron HCl (Zofran) 4 mg STK-MED ONCE .ROUTE ; Start 03/20/21 at 07:03; Stop 03/20/21 at 07:04; Status DC Lidocaine HCl (Lidocaine Pf 2% Vial) 5 ml STK-MED ONCE .ROUTE ; Start 03/20/21 at 07:03; Stop 03/20/21 at 07:04; Status DC Fentanyl Citrate (Fentanyl 2ml Vial) 100 mcg STK-MED ONCE .ROUTE ; Start 03/20/21 at 07:58; Stop 03/20/21 at 07:58; Status DC Oxycodone/ Acetaminophen (Percocet 5/325) 1 tab 1X ONCE PO Last administered on 03/20/21at 10:25; Start 03/20/21 at 08:15; Stop 03/20/21 at 08:21; Status DC Apixaban (Eliquis) 5 mg BID PO Last administered on 03/22/21at 11:04; Start 03/21/21 at 09:00 Active Scripts Active Furosemide 20 Mg Tablet 20 Mg PO DAILY Eliquis (Apixaban) 5 Mg Tablet 5 Mg PO BID [Fluconazole] 100 MG Tablet 100 Mg PO DAILY 5 Days Zyvox (Linezolid) 600 Mg Tablet 600 Mg PO BID 5 Days Zosyn 2.25 Gm Pre-Mix Bag (Iksooebhbuny-Xcqh-Dynnmpfr,Iso) 2.25 Gm/50 Ml Froz.piggy 2.25 Gm IV Q6HRS 5 Days Hydrocodone-Acetamin 5-325 mg (Hydrocodone/Acetaminophen) 1 Each Tablet 1 Each PO Q6HRS PRN Culturelle (Lactobacillus Rhamnosus Gg) 1 Each Cap.sprink 1 Cap PO BID 10 Days Acetaminophen 500 Mg Tablet 500 Mg PO PRN Q4HRS PRN Reported Mirapex (Pramipexole Di-Hcl) 0.25 Mg Tablet 0.5 Mg PO TID Vitamin D3 (Cholecalciferol (Vitamin D3)) 1,000 Unit Tablet 1,000 Unit PO DAILY Sinemet Cr 50-200 Tablet (Carbidopa/Levodopa) 1 Each Tablet.er 1 Tab PO TID Vitals/I & O Vital Sign - Last 24 Hours 03/21/21 03/21/21 03/21/21 03/21/21 11:25 15:06 19:20 20:00 Temp 98.6 97.6 98.1 98.6 97.6 98.1 Pulse 85 95 85 Resp 18 18 20 B/P (MAP) 119/85 (96) 132/75 (94) 121/64 (83) Pulse Ox 96 92 100 O2 Delivery Room Air Room Air Room Air Room Air 10/29/21 10/30/21 10/30/21 10/30/21 23:01 03:03 07:00 11:03 Temp 97.5 98.1 98.1 97.5 98.1 98.1 Pulse 81 67 84 84 Resp 18 18 16 B/P (MAP) 156/80 (105) 161/77 (105) 130/72 (91) 132/72 Pulse Ox 96 96 93 O2 Delivery Room Air Room Air Room Air Intake and Output 03/21/21 03/21/21 03/22/21 15:00 23:00 07:00 Intake Total 370 ml 100 ml 480 ml Balance 370 ml 100 ml 480 ml Justifications for Admission Other Justification Nutrition Consultation Dietary Evaluation: Recommendations by RD: Dietary education by RD, Increase Calorie Intake, Protein supplementation Comments: regular ensure enlive bid REC mvi and vit c per wound protocal Expected Outcomes/Goals: to meet >75% est nutr needs improved wound status Interpretation of weight loss: >7.5% in 3 months Malnutrition Findings: Food and Nutrition Intake (Mod: <75% est energy req 7days Weight Status: Overweight HEATHER KOCH DPM Mar 22, 2021 11:17
[2021-03-22 15:00] VITALS: BP 148/77
[2021-03-22 19:00] VITALS: BP 137/79
[2021-03-22 23:00] VITALS: BP 141/82
[2021-03-23 03:00] VITALS: BP 130/68
[2021-03-23] MEDS: PIPERACILLIN/TAZOBACTAM 2.25 GM in IV NORMAL SALINE 50ML 50 ML IV SCH ×5 (05:50→23:57)
[2021-03-23 07:00] VITALS: BP 158/86
[2021-03-23 07:57] LABS: BASO # 0.1 x10^3/uL (0.0-0.2); BASO % 2 % (0-3); EOS # 0.4 x10^3/uL (0.0-0.7); EOS % 5 % (0-3); HEMATOCRIT 25.3 % (36.0-47.0); HEMOGLOBIN 7.8 g/dL (12.0-15.5); LYMPH # 1.4 x10^3/uL (1.0-4.8); LYMPH % 19 % (24-48); MEAN CORPUSCULAR HEMOGLOBIN 19 pg (25-35); MEAN CORPUSCULAR HGB CONC 31 g/dL (31-37); MEAN CORPUSCULAR VOLUME 63 fL (79-100); MONO # 0.2 x10^3/uL (0.0-1.1); MONO % 3 % (0-9); NEUT # 5.3 x10^3/uL (1.8-7.7); NEUT % 71 % (31-73); PLATELET COUNT 212 x10^3/uL (140-400); RED BLOOD COUNT 4.04 x10^6/uL (3.50-5.40); RED CELL DISTRIBUTION WIDTH 18.1 % (11.5-14.5); WHITE BLOOD COUNT 7.4 x10^3/uL (4.0-11.0)
[2021-03-23 08:31] LABS: CALCIUM 8.9 mg/dL (8.5-10.1); CREATININE 1.2 mg/dL (0.6-1.0); GFR 51.5; POTASSIUM 3.7 mmol/L (3.5-5.1)
--- NOTE | 2021-03-23 09:19 | PDOC ---
Infectious Disease Note Subjective: Subjective Patient feels better Little confused today, kept on saying that her daughter and granddaughter came to the floor this morning but did not visit with her. No acute issues per discussion with RN Vital Signs: Vital Signs Vital Signs Date Time Temp Pulse Resp B/P (MAP) Pulse Ox O2 Delivery O2 Flow Rate FiO2 03/23/21 07:00 97.4 85 18 158/86 (110) 95 Room Air 97.4 Physical Exam: PHYSICAL EXAM GENERAL: Alert awake female sitting at the edge of the bed in no acute distress HEENT: Normocephalic, atraumatic. Anicteric. Oral mucosa moist. NECK: Supple. LUNGS: Clear bilaterally. HEART: S1, S2. ABDOMEN: Soft, nontender, bowel sounds present. EXTREMITIES: Right lower extremity has edema, 1-2+ edema of the left lower extremity. There is 2 open wound lateral aspect of foot, seen with Dr. Jin appears clean, no purulence, healthy granulation tissue DERMATOLOGIC: Warm, dry, no generalized rash except for above. NEUROLOGIC: Alert, oriented x 3, grossly nonfocal. PSYCHIATRIC: Calm and cooperative.. Medications: Inpatient Meds: Medications reviewed. Labs: Lab Laboratory Tests Test 03/23/21 06:40 White Blood Count 7.4 x10^3/uL (4.0-11.0) Red Blood Count 4.04 x10^6/uL (3.50-5.40) Hemoglobin 7.8 g/dL (12.0-15.5) Hematocrit 25.3 % (36.0-47.0) Mean Corpuscular Volume 63 fL (79-100) Mean Corpuscular Hemoglobin 19 pg (25-35) Mean Corpuscular Hemoglobin Concent 31 g/dL (31-37) Red Cell Distribution Width 18.1 % (11.5-14.5) Platelet Count 212 x10^3/uL (140-400) Neutrophils (%) (Auto) 71 % (31-73) Lymphocytes (%) (Auto) 19 % (24-48) Monocytes (%) (Auto) 3 % (0-9) Eosinophils (%) (Auto) 5 % (0-3) Basophils (%) (Auto) 2 % (0-3) Neutrophils # (Auto) 5.3 x10^3/uL (1.8-7.7) Lymphocytes # (Auto) 1.4 x10^3/uL (1.0-4.8) Monocytes # (Auto) 0.2 x10^3/uL (0.0-1.1) Eosinophils # (Auto) 0.4 x10^3/uL (0.0-0.7) Basophils # (Auto) 0.1 x10^3/uL (0.0-0.2) Sodium Level 140 mmol/L (136-145) Potassium Level 3.7 mmol/L (3.5-5.1) Chloride Level 105 mmol/L (98-107) Carbon Dioxide Level 28 mmol/L (21-32) Anion Gap 7 (6-14) Blood Urea Nitrogen 17 mg/dL (7-20) Creatinine 1.2 mg/dL (0.6-1.0) Estimated GFR (Cockcroft-Gault) 51.5 Glucose Level 69 mg/dL (70-99) Calcium Level 8.9 mg/dL (8.5-10.1) Micro RUN DATE: 03/17/21 [facility] *LIVE* PAGE 1 RUN TIME: 826 Specimen Inquiry PATIENT: JACKIE GROVES ACCT: [id number] LOC: [address] [place] [address] U: [id number] AGE/SX: 86/F ROOM: 408 RE03/14/[address]: ELI ROSALES MD : [id number] BED: 1 DIS: STATUS: ADM IN TLOC: SPEC #: [id number] JASMIN: 03/14/21 STATUS: RES REQ #: [id number] RECD: 03/14/21 [facility] [address]: ELI ROSALES MD SOURCE: LEG ENTR: 03/14/[address]: EZRA RUIZ MD SPDESC: WOUND ELI ALCANTAR SAMIR R MD ORDERED: ANAER/AEROB/GS COMMENTS: LEFT LOWER LEG WOUND Procedure Result GRAM STAIN Final Final GRAM NEGATIVE RODS:FEW GRAM POSITIVE COCCI:RARE SQUAMOUS EPI CELL:NONE SEEN PMN (WBCs):MODERATE Unless otherwise specified, Testing Performed by: [address] [address] For Inquires, the Physician may contact the Microbiology department at [phone] ANAEROBIC-AEROBIC CULTURE Preliminary Preliminary MIXED AEROBIC AND ANAEROBIC TUCKER on 03/16/21 at 1359 INCLUDING: MANY [PROTEUS MIRABILIS] MANY [ENTEROCOCCUS FAECALIS] MANY [PORPHYROMONAS SOMERAE] PROTEUS MIRABILIS ENTEROCOCCUS FAECALIS PORPHYROMONAS SOMERAE ANTIMICROBIAL SUSCEPTIBILITY Preliminary Comment Comment NEG ROSA 56 PROTEUS MIRABILIS ANTIBIOTIC RESULT INTERPRETATION AMPICILLIN/SULBACTAM <=4/2 S AMIKACIN <=16 S AMPICILLIN <=8 S AMOXICILLIN/K CLAVULANATE <=8/4 S AZTREONAM <=4 S CEFTRIAXONE <=1 S CEFTAZIDIME <=1 S CEFOTAXIME <=2 S RUN DATE: 03/17/21 [facility] *LIVE* PAGE 2 RUN TIME: 0827 Specimen Inquiry SPEC: [id number] PATIENT: GERMAINJACKIE King [id number] (Continued) Procedure Result CONTINUED ON NEXT PAGE ---- -------- RUN DATE: 03/17/21 [facility] *LIVE* PAGE 3 RUN TIME: 0827 Specimen Inquiry SPEC: [id number] PATIENT: ANNE GROVESJose King [id number] (Continued) Procedure Result ANTIMICROBIAL SUSCEPTIBILITY Preliminary (continued) CEFOXITIN <=8 S CEFAZOLIN <=2 S CIPROFLOXACIN <=0.25 S CEFEPIME <=2 S CEFUROXIME <=4 S CEFTAZIDIME/AVIBACTAM <=4 S ERTAPENEM <=0.5 S GENTAMICIN <=2 S LEVOFLOXACIN <=0.5 S MEROPENEM <=1 S PIPERACILLIN/TAZOBACTAM <=8 S TRIMETHOPRIM/SULFAMETHOXAZOLE <=0.5/9.5 S TETRACYCLINE >8 R TOBRAMYCIN <=2 S Streptomycin Synergy Screen S Gentamicin Synergy Screen S POS ROSA TYPE 38 ENTEROCOCCUS FAECALIS ANTIBIOTIC RESULT INTERPRETATION AMPICILLIN <=2 S DAPTOMYCIN 1 S LINEZOLID 2 S PENICILLIN 2 S VANCOMYCIN 1 S Unless otherwise specified, Testing Performed by: [address] [address] For Inquires, the Physician may contact the Microbiology department at [phone] Objective: Assessment: 1. Chronic nonhealing left lateral leg wound, cellulitis and subcutaneous absce ss distal to ulcer, MRI neg for OM. Swab cultures positive for Enterococcus faecalis, Proteus, PORPHYROMONAS SOMERAE 2. Chronic kidney disease, 3. Parkinson's. 4. History of bilateral DVT. March 20, 2021 status post L leg incision and drainage, wound vac application, posterior splint application No deep fascia, tendon or bone involved Operative cultures are pending Plan: Plan of Care 1. Continue Zosyn. DC linezolid. Monitor mental status closely. 2 Monitor labs and cultures. 3. Wound care as directed/activity as directed Discussed with Dr. Jin yesterday Discussed with daughter at bedside on 03/21/2021 Discussed with nursing staff. TRAV IBARRA MD Mar 23, 2021 09:19
[2021-03-23] MEDS: PRAMIPEXOLE 0.25 MG TABLET. PO SCH ×3 (09:22→22:05)
[2021-03-23] MEDS: CHOLECALCIFEROL (VITAMIN D3) 1,000 UNIT TABLET PO SCH (09:22)
[2021-03-23] MEDS: FERROUS SULFATE 325 MG TABLET. PO SCH (09:22)
[2021-03-23] MEDS: CARBIDOPA/LEVODOPA CR 25/100MG TABLET.SA. PO SCH ×3 (09:22→22:05)
[2021-03-23] MEDS: LACTOBACILLUS RHAMNOSUS GG 1 CAPSULE. PO SCH ×2 (09:23→22:04)
[2021-03-23] MEDS: APIXABAN 5 MG TABLET. PO SCH ×2 (09:23→22:05)
[2021-03-23] MEDS: FUROSEMIDE 20 MG TABLET PO SCH (09:24)
[2021-03-23 11:00] VITALS: BP 176/77
--- NOTE | 2021-03-23 11:36 | PDOC ---
PROGRESS NOTES Date of Service DATE: 03/23/21 TIME: 11:32 Subjective Subjective feels well. bp is high. pain controlled. Objective Objective Vital Signs Date Time Temp Pulse Resp B/P (MAP) Pulse Ox O2 Delivery O2 Flow Rate FiO2 03/23/21 11:00 97.9 76 18 176/77 (110) 94 Room Air 97.9 03/20/21 08:26 2.0 Intake and Output 03/23/21 06:59 Intake Total 700 ml Balance 700 ml Intake Oral 300 ml IV Total 400 ml # Voids 2 Physical Exam Abdomen: Soft Heart: Regular rate, Normal S1, Normal S2 Extremities: Other (LLE splint with wound vac) General: Alert HEENT: Atraumatic Lungs: Clear to auscultation Neuro: Normal speech Psych/Mental Status: Mood NL Skin: Other (wound vac LLE) Assessment Assessment ProblemsLeft calf wound which overlies the distal left fibula. wound cultures grew Proteus and enterococcus. MRI neg for osteomyelitis. incision and drainage of wound 03/20/21 3. Chronic kidney disease stage 3. 4. Chronic venous insufficiency of the legs. 5. Parkinson's disease. 6. Anemia of chronic disease. 7. 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 Medical Problems: (1) Osteomyelitis Status: Acute Plan Plan of Care continue wound care and wound vac continue zyvox and zosyn delayed closure wednesday stop eliquis 24 hours before procedure increase amlodipine PT and OT Comment Review of Relevant I have reviewed the following items cathleen (where applicable) has been applied. Labs Laboratory Tests Test 03/23/21 06:40 White Blood Count 7.4 x10^3/uL (4.0-11.0) Red Blood Count 4.04 x10^6/uL (3.50-5.40) Hemoglobin 7.8 g/dL (12.0-15.5) Hematocrit 25.3 % (36.0-47.0) Mean Corpuscular Volume 63 fL (79-100) Mean Corpuscular Hemoglobin 19 pg (25-35) Mean Corpuscular Hemoglobin Concent 31 g/dL (31-37) Red Cell Distribution Width 18.1 % (11.5-14.5) Platelet Count 212 x10^3/uL (140-400) Neutrophils (%) (Auto) 71 % (31-73) Lymphocytes (%) (Auto) 19 % (24-48) Monocytes (%) (Auto) 3 % (0-9) Eosinophils (%) (Auto) 5 % (0-3) Basophils (%) (Auto) 2 % (0-3) Neutrophils # (Auto) 5.3 x10^3/uL (1.8-7.7) Lymphocytes # (Auto) 1.4 x10^3/uL (1.0-4.8) Monocytes # (Auto) 0.2 x10^3/uL (0.0-1.1) Eosinophils # (Auto) 0.4 x10^3/uL (0.0-0.7) Basophils # (Auto) 0.1 x10^3/uL (0.0-0.2) Sodium Level 140 mmol/L (136-145) Potassium Level 3.7 mmol/L (3.5-5.1) Chloride Level 105 mmol/L (98-107) Carbon Dioxide Level 28 mmol/L (21-32) Anion Gap 7 (6-14) Blood Urea Nitrogen 17 mg/dL (7-20) Creatinine 1.2 mg/dL (0.6-1.0) Estimated GFR (Cockcroft-Gault) 51.5 Glucose Level 69 mg/dL (70-99) Calcium Level 8.9 mg/dL (8.5-10.1) Laboratory Tests Test 03/23/21 06:40 White Blood Count 7.4 x10^3/uL (4.0-11.0) Red Blood Count 4.04 x10^6/uL (3.50-5.40) Hemoglobin 7.8 g/dL (12.0-15.5) Hematocrit 25.3 % (36.0-47.0) Mean Corpuscular Volume 63 fL (79-100) Mean Corpuscular Hemoglobin 19 pg (25-35) Mean Corpuscular Hemoglobin Concent 31 g/dL (31-37) Red Cell Distribution Width 18.1 % (11.5-14.5) Platelet Count 212 x10^3/uL (140-400) Neutrophils (%) (Auto) 71 % (31-73) Lymphocytes (%) (Auto) 19 % (24-48) Monocytes (%) (Auto) 3 % (0-9) Eosinophils (%) (Auto) 5 % (0-3) Basophils (%) (Auto) 2 % (0-3) Neutrophils # (Auto) 5.3 x10^3/uL (1.8-7.7) Lymphocytes # (Auto) 1.4 x10^3/uL (1.0-4.8) Monocytes # (Auto) 0.2 x10^3/uL (0.0-1.1) Eosinophils # (Auto) 0.4 x10^3/uL (0.0-0.7) Basophils # (Auto) 0.1 x10^3/uL (0.0-0.2) Sodium Level 140 mmol/L (136-145) Potassium Level 3.7 mmol/L (3.5-5.1) Chloride Level 105 mmol/L (98-107) Carbon Dioxide Level 28 mmol/L (21-32) Anion Gap 7 (6-14) Blood Urea Nitrogen 17 mg/dL (7-20) Creatinine 1.2 mg/dL (0.6-1.0) Estimated GFR (Cockcroft-Gault) 51.5 Glucose Level 69 mg/dL (70-99) Calcium Level 8.9 mg/dL (8.5-10.1) Microbiology 03/20/21 Gram Stain - Final, Resulted 03/20/21 Aerobic and Anaerobic Culture - Preliminary, Resulted 03/14/21 Blood Culture - Final, Complete NO GROWTH AFTER 5 DAYS Medications Current Medications Vancomycin HCl 1.5 gm/Sodium Chloride 500 ml @ 250 mls/hr 1X ONCE IV ; Start 03/14/21 at 11:45; Stop 03/14/21 at 11:35; Status DC Ceftriaxone Sodium (Rocephin) 1 gm 1X ONCE IVP Last administered on 03/14/21at 11:30; Start 03/14/21 at 11:45; Stop 03/14/21 at 11:35; Status DC Piperacillin Sod/ Tazobactam Sod 4.5 gm/Sodium Chloride 100 ml @ 200 mls/hr 1X ONCE IV Last administered on 03/14/21at 11:52; Start 03/14/21 at 12:00; Stop 03/14/21 at 12:29; Status DC Linezolid/Dextrose 300 ml @ 300 mls/hr Q12HR IV Last administered on 03/23/21at 09:23; Start 03/14/21 at 13:00 Piperacillin Sod/ Tazobactam Sod 3.375 gm/Sodium Chloride 50 ml @ 100 mls/hr Q6HRS IV Last administered on 03/15/21at 05:06; Start 03/14/21 at 18:00; Stop 03/15/21 at 09:35; Status DC Acetaminophen (Tylenol) 650 mg PRN Q6HRS PRN PO MILD PAIN / TEMP > 100.3'F Last administered on 03/22/21at 05:30; Start 03/14/21 at 16:00 Carbidopa/Levodopa (Sinemet Cr) 2 tab.sa TID PO Last administered on 03/23/21 09:22; Start 03/14/21 at 14:00 Apixaban (Eliquis) 2.5 mg BID PO Last administered on 03/19/21at 08:38; Start 03/14/21 at 21:00; Stop 03/19/21 at 15:19; Status DC Ferrous Sulfate (Feosol) 325 mg DAILYWBKFT PO Last administered on 03/23/21at 09:22; Start 03/15/21 at 08:00 Furosemide (Lasix) 20 mg DAILY PO Last administered on 03/23/21at 09:24; Start 03/15/21 at 09:00 Vitamin D (Vitamin D3) 1,000 unit DAILY PO Last administered on 03/23/21 09:22; Start 03/15/21 at 09:00 Pramipexole Dihydrochloride (miraPEX) 0.5 mg [id number] PO Last administered on 03/23/21at 09:22; Start 03/14/21 at 16:30 Magnesium Hydroxide (Milk Of Magnesia) 2,400 mg PRN DAILY PRN PO CONSTIPATION; Start 03/14/21 at 16:00 Piperacillin Sod/ Tazobactam Sod (Zosyn Per Pharmacy) 1 each PRN DAILY PRN MC SEE COMMENTS; Start 03/14/21 at 16:15 Piperacillin Sod/ Tazobactam Sod 2.25 gm/Sodium Chloride 50 ml @ 100 mls/hr Q6HRS IV Last administered on 03/23/21at 05:50; Start 03/15/21 at 12:00 Lactobacillus Rhamnosus (Culturelle) 1 cap BID PO Last administered on 03/23/21at 09:23; Start 03/16/21 at 21:00 Gadoterate Meglumine (Clariscan) 15 ml 1X ONCE IVP Last administered on 03/17/21at 09:25; Start 03/17/21 at 09:30; Stop 03/17/21 at 09:31; Status DC Amlodipine Besylate (Norvasc) 2.5 mg DAILY PO Last administered on 03/23/21at 09:23; Start 03/17/21 at 11:00 Fentanyl Citrate (Fentanyl 2ml Vial) 25 mcg PRN Q5MIN PRN IVP MILD PAIN 1-3; Start 03/20/21 at 06:00; Stop 03/21/21 at 05:59; Status DC Fentanyl Citrate (Fentanyl 2ml Vial) 50 mcg PRN Q5MIN PRN IVP MODERATE PAIN 4-6 Last administered on 03/20/21at 08:26; Start 03/20/21 at 06:00; Stop 03/21/21 at 05:59; Status DC Morphine Sulfate (Morphine Sulfate) 1 mg PRN Q10MIN PRN IVP SEVERE PAIN 7-10; Start 03/20/21 at 06:00; Stop 03/21/21 at 05:59; Status DC Ringer's Solution 1,000 ml @ 30 mls/hr Q24H IV Last administered on 03/20/21at 07:00; Start 03/20/21 at 06:00; Stop 03/20/21 at 17:59; Status DC Hydromorphone HCl (Dilaudid) 0.5 mg PRN Q10MIN PRN IVP SEVERE PAIN 7-10, 2nd CHOICE; Start 03/20/21 at 06:00; Stop 03/21/21 at 05:59; Status DC Prochlorperazine Edisylate (Compazine) 5 mg PACU PRN PRN IVP NAUSEA, MRX1; Start 03/20/21 at 06:00; Stop 03/21/21 at 05:59; Status DC Propofol (Diprivan) 200 mg STK-MED ONCE IV ; Start 03/20/21 at 07:01; Stop 03/20/21 at 07:01; Status DC Propofol (Diprivan) 200 mg STK-MED ONCE IV ; Start 03/20/21 at 07:01; Stop 03/20/21 at 07:01; Status DC Fentanyl Citrate (Fentanyl 2ml Vial) 100 mcg STK-MED ONCE .ROUTE ; Start 03/20/21 at 07:02; Stop 03/20/21 at 07:02; Status DC Dexamethasone Sodium Phosphate (Decadron) 4 mg STK-MED ONCE .ROUTE ; Start 03/20/21 at 07:02; Stop 03/20/21 at 07:02; Status DC Ondansetron HCl (Zofran) 4 mg STK-MED ONCE .ROUTE ; Start 03/20/21 at 07:03; Stop 03/20/21 at 07:04; Status DC Lidocaine HCl (Lidocaine Pf 2% Vial) 5 ml STK-MED ONCE .ROUTE ; Start 03/20/21 at 07:03; Stop 03/20/21 at 07:04; Status DC Fentanyl Citrate (Fentanyl 2ml Vial) 100 mcg STK-MED ONCE .ROUTE ; Start 03/20/21 at 07:58; Stop 03/20/21 at 07:58; Status DC Oxycodone/ Acetaminophen (Percocet 5/325) 1 tab 1X ONCE PO Last administered on 03/20/21at 10:25; Start 03/20/21 at 08:15; Stop 03/20/21 at 08:21; Status DC Apixaban (Eliquis) 5 mg BID PO Last administered on 03/23/21at 09:23; Start 03/21/21 at 09:00 Active Scripts Active Furosemide 20 Mg Tablet 20 Mg PO DAILY Eliquis (Apixaban) 5 Mg Tablet 5 Mg PO BID [Fluconazole] 100 MG Tablet 100 Mg PO DAILY 5 Days Zyvox (Linezolid) 600 Mg Tablet 600 Mg PO BID 5 Days Zosyn 2.25 Gm Pre-Mix Bag (Hsbtuolbxgwx-Rmqw-Lladjqvq,Iso) 2.25 Gm/50 Ml Froz.piggy 2.25 Gm IV Q6HRS 5 Days Hydrocodone-Acetamin 5-325 mg (Hydrocodone/Acetaminophen) 1 Each Tablet 1 Each PO Q6HRS PRN Culturelle (Lactobacillus Rhamnosus Gg) 1 Each Cap.sprink 1 Cap PO BID 10 Days Acetaminophen 500 Mg Tablet 500 Mg PO PRN Q4HRS PRN Reported Mirapex (Pramipexole Di-Hcl) 0.25 Mg Tablet 0.5 Mg PO TID Vitamin D3 (Cholecalciferol (Vitamin D3)) 1,000 Unit Tablet 1,000 Unit PO DAILY Sinemet Cr 50-200 Tablet (Carbidopa/Levodopa) 1 Each Tablet.er 1 Tab PO TID Vitals/I & O Vital Sign - Last 24 Hours 03/22/21 03/22/21 03/22/21 03/22/21 15:00 19:00 20:00 23:00 Temp 97.5 97.9 98.2 97.5 97.9 98.2 Pulse 97 91 89 Resp 18 18 18 B/P (MAP) 148/77 (100) 137/79 (98) 141/82 (101) Pulse Ox 97 93 96 O2 Delivery Room Air Room Air Room Air Room Air 03/23/21 03/23/21 03/23/21 03/23/21 03:00 07:00 09:23 11:00 Temp 97.7 97.4 97.9 97.7 97.4 97.9 Pulse 86 85 85 76 Resp 18 18 18 B/P (MAP) 130/68 (88) 158/86 (110) 158/86 176/77 (110) Pulse Ox 97 95 94 O2 Delivery Room Air Room Air Room Air Intake and Output 03/22/21 03/22/21 03/23/21 14:59 22:59 06:59 Intake Total 350 ml 350 ml Balance 350 ml 350 ml Justifications for Admission Other Justification Nutrition Consultation Dietary Evaluation: Recommendations by RD: Dietary education by RD, Increase Calorie Intake, Protein supplementation Comments: regular ensure enlive bid REC mvi and vit c per wound protocal Expected Outcomes/Goals: to meet >75% est nutr needs improved wound status Interpretation of weight loss: >7.5% in 3 months Malnutrition Findings: Food and Nutrition Intake (Mod: <75% est energy req 7days Weight Status: Overweight ELI ROSALES MD Mar 23, 2021 11:36
[2021-03-23 15:00] VITALS: BP 142/83
[2021-03-23 19:00] VITALS: BP 137/72
[2021-03-23 23:00] VITALS: BP 162/82
[2021-03-24 03:00] VITALS: BP 164/74
[2021-03-24] MEDS: PIPERACILLIN/TAZOBACTAM 2.25 GM in IV NORMAL SALINE 50ML 50 ML IV SCH ×4 (05:53→23:59)
[2021-03-24 07:00] VITALS: BP 133/72
--- NOTE | 2021-03-24 09:35 | PDOC ---
Infectious Disease Note Subjective: Subjective Patient feels better Denies fever, nausea, vomiting Occasional loose bowel movement Tolerates p.o. intake well Pain is under control Awaiting repeat surgery Wednesday Vital Signs: Vital Signs Vital Signs Date Time Temp Pulse Resp B/P (MAP) Pulse Ox O2 Delivery O2 Flow Rate FiO2 03/24/21 07:00 98.0 80 16 133/72 (92) 96 Room Air 98.0 Physical Exam: PHYSICAL EXAM GENERAL: Alert awake female sitting at the edge of the bed in no acute distress HEENT: Normocephalic, atraumatic. Anicteric. Oral mucosa moist. NECK: Supple. LUNGS: Clear bilaterally. HEART: S1, S2. ABDOMEN: Soft, nontender, bowel sounds present. EXTREMITIES: Right lower extremity has edema, 1-2+ edema of the left lower extremity. There is 2 open wound lateral aspect of foot, seen with Dr. Jin appears clean, no purulence, healthy granulation tissue DERMATOLOGIC: Warm, dry, no generalized rash except for above. NEUROLOGIC: Alert, oriented x 3, grossly nonfocal. PSYCHIATRIC: Calm and cooperative.. Medications: Inpatient Meds: Medications reviewed. Labs: Micro RUN DATE: 03/17/21 [facility] *LIVE* PAGE 1 RUN TIME: 826 Specimen Inquiry PATIENT: JACKIE GROVES ACCT: [id number] LOC: [address] [place] [address] U: [id number] AGE/SX: 86/F ROOM: [facility] RE03/14/[address]: ELI MILES MD : [id number] BED: 1 DIS: STATUS: ADM IN TLOC: SPEC #: [id number] JASMIN: 03/14/21 STATUS: RES REQ #: [id number] RECD: 03/14/[address]: ELI MILES MD SOURCE: LEG ENTR: 03/14/[address]: EZRA RUIZ MD SPDESC: WOUND KATHARINE,STACEY PHAN MD ORDERED: BAM/AEREKATERINA/JESSA COMMENTS: LEFT LOWER LEG WOUND Procedure Result GRAM STAIN Final Final GRAM NEGATIVE RODS:FEW GRAM POSITIVE COCCI:RARE SQUAMOUS EPI CELL:NONE SEEN PMN (WBCs):MODERATE Unless otherwise specified, Testing Performed by: [address] [address] For Inquires, the Physician may contact the Microbiology department at [phone] ANAEROBIC-AEROBIC CULTURE Preliminary Preliminary MIXED AEROBIC AND ANAEROBIC TUCKER on 03/16/21 at 1359 INCLUDING: MANY [PROTEUS MIRABILIS] MANY [ENTEROCOCCUS FAECALIS] MANY [PORPHYROMONAS SOMERAE] PROTEUS MIRABILIS ENTEROCOCCUS FAECALIS PORPHYROMONAS SOMERAE ANTIMICROBIAL SUSCEPTIBILITY Preliminary Comment Comment NEG ROSA 56 PROTEUS MIRABILIS ANTIBIOTIC RESULT INTERPRETATION AMPICILLIN/SULBACTAM <=4/2 S AMIKACIN <=16 S AMPICILLIN <=8 S AMOXICILLIN/K CLAVULANATE <=8/4 S AZTREONAM <=4 S CEFTRIAXONE <=1 S CEFTAZIDIME <=1 S CEFOTAXIME <=2 S RUN DATE: 03/17/21 [facility] *LIVE* PAGE 2 RUN TIME: 08 Specimen Inquiry SPEC: [id number] PATIENT: JACKIE GROVES [id number] (Continued) Procedure Result CONTINUED ON NEXT PAGE RUN DATE: 03/17/21 [facility] *LIVE* PAGE 3 RUN TIME: 0827 Specimen Inquiry SPEC: [id number] PATIENT: JACKIE GROVES [id number] (Continued) Procedure Result ANTIMICROBIAL SUSCEPTIBILITY Preliminary (continued) CEFOXITIN <=8 S CEFAZOLIN <=2 S CIPROFLOXACIN <=0.25 S CEFEPIME <=2 S CEFUROXIME <=4 S CEFTAZIDIME/AVIBACTAM <=4 S ERTAPENEM <=0.5 S GENTAMICIN <=2 S LEVOFLOXACIN <=0.5 S MEROPENEM <=1 S PIPERACILLIN/TAZOBACTAM <=8 S TRIMETHOPRIM/SULFAMETHOXAZOLE <=0.5/9.5 S TETRACYCLINE >8 R TOBRAMYCIN <=2 S Streptomycin Synergy Screen S Gentamicin Synergy Screen S POS ROSA TYPE 38 ENTEROCOCCUS FAECALIS ANTIBIOTIC RESULT INTERPRETATION AMPICILLIN <=2 S DAPTOMYCIN 1 S LINEZOLID 2 S PENICILLIN 2 S VANCOMYCIN 1 S Unless otherwise specified, Testing Performed by: [address] [address] For Inquires, the Physician may contact the Microbiology department at [phone] Objective: Assessment: 1. Chronic nonhealing left lateral leg wound, cellulitis and subcutaneous abscess distal to ulcer, MRI neg for OM. Swab cultures positive for Enterococcus faecalis, Proteus, PORPHYROMONAS SOMERAE 2. Chronic kidney disease, 3. Parkinson's. 4. History of bilateral DVT. March 20, 2021 status post L leg incision and drainage, wound vac application, posterior splint application No deep fascia, tendon or bone involved Operative cultures are pending Plan: Plan of Care 1. Continue Zosyn. Awaiting surgery this Wednesday per podiatry 2 Monitor labs and cultures. 3. Wound care as directed/activity as directed Discussed with Dr. Miles Discussed with nursing staff. TRAV IBARRA MD Mar 24, 2021 09:35
[2021-03-24] MEDS: LACTOBACILLUS RHAMNOSUS GG 1 CAPSULE. PO SCH ×2 (09:48→21:12)
[2021-03-24] MEDS: CHOLECALCIFEROL (VITAMIN D3) 1,000 UNIT TABLET PO SCH (09:48)
[2021-03-24] MEDS: CARBIDOPA/LEVODOPA CR 25/100MG TABLET.SA. PO SCH ×3 (09:48→21:13)
[2021-03-24] MEDS: PRAMIPEXOLE 0.25 MG TABLET. PO SCH ×3 (09:49→21:13)
[2021-03-24] MEDS: FERROUS SULFATE 325 MG TABLET. PO SCH (09:49)
[2021-03-24] MEDS: FUROSEMIDE 20 MG TABLET PO SCH (09:49)
[2021-03-24] MEDS: APIXABAN 5 MG TABLET. PO SCH ×2 (09:49→21:12)
--- NOTE | 2021-03-24 10:27 | PDOC ---
PROGRESS NOTES Date of Service DATE: 03/24/21 TIME: 10:23 Subjective Subjective Patient was seen resting comfortably in bed with her daughter visiting her. Patient denies any pain to left lower extremity. She has been tolerating dressing, splint and VAC well. Patient denies any constitutional symptoms. Objective Objective Vital Signs Date Time Temp Pulse Resp B/P (MAP) Pulse Ox O2 Delivery O2 Flow Rate FiO2 03/24/21 09:49 80 133/72 03/24/21 07:00 98.0 16 96 Room Air 98.0 03/20/21 08:26 2.0 Intake and Output 03/24/21 07:00 Intake Total 50 ml Balance 50 ml IV Total 50 ml # Voids 5 # Bowel Movements 1 Physical Exam Physical Exam Physical Exam General: AOx3, pleasant without distress Left lower extremity focused Dermatology: -Dressing is kept clean, dry and intact. Wound VAC is functioning at 125 mmHg continuous -Overnight drainage was minimal, sanguinous drainage Neurology: -Diminished to light touch sensation to digits 1 through 5 Vascular: -Foot is warm to touch -CFT less than 3 seconds Musculoskeletal: -Calf is soft and less tender -No TTP along the peroneal tendons distally or proximally -No TTP along the Achilles tendon -Able to move digits and ankle -Popliteal lymph nodes are not tender on palpation Assessment Assessment Problems Medical Problems: (1) Osteomyelitis Status: Acute Plan Plan of Care -S/p 03/20 left leg I&D, wound VAC and posterior splint application. Intraoperative findings remarked necrotic tissue limited to the superficial fascial layer and adipose tissue without violation of the deep fascial layer, tendon/ bone -Per ID, patient is currently on Zosyn -Blood culture 03/14: NEG -Wound culture 03/14: Proteus, Enterococci, Porphyromonas, GPC -Deep wound culture 03/20: Before and after washout, NEG -Dressing: Leave the dressing clean, dry and intact -Ideally, remain nonweightbearing to left lower extremity, however minimal touchdown balance is okay, PT eval and treat Dispo: Plan for delayed wound closure, possible reapply of the wound VAC vs. skin graft vs. Skinplasty on Wednesday Comment Review of Relevant I have reviewed the following items cathleen (where applicable) has been applied. Labs Laboratory Tests Test 03/23/21 06:40 White Blood Count 7.4 x10^3/uL (4.0-11.0) Red Blood Count 4.04 x10^6/uL (3.50-5.40) Hemoglobin 7.8 g/dL (12.0-15.5) Hematocrit 25.3 % (36.0-47.0) Mean Corpuscular Volume 63 fL (79-100) Mean Corpuscular Hemoglobin 19 pg (25-35) Mean Corpuscular Hemoglobin Concent 31 g/dL (31-37) Red Cell Distribution Width 18.1 % (11.5-14.5) Platelet Count 212 x10^3/uL (140-400) Neutrophils (%) (Auto) 71 % (31-73) Lymphocytes (%) (Auto) 19 % (24-48) Monocytes (%) (Auto) 3 % (0-9) Eosinophils (%) (Auto) 5 % (0-3) Basophils (%) (Auto) 2 % (0-3) Neutrophils # (Auto) 5.3 x10^3/uL (1.8-7.7) Lymphocytes # (Auto) 1.4 x10^3/uL (1.0-4.8) Monocytes # (Auto) 0.2 x10^3/uL (0.0-1.1) Eosinophils # (Auto) 0.4 x10^3/uL (0.0-0.7) Basophils # (Auto) 0.1 x10^3/uL (0.0-0.2) Sodium Level 140 mmol/L (136-145) Potassium Level 3.7 mmol/L (3.5-5.1) Chloride Level 105 mmol/L (98-107) Carbon Dioxide Level 28 mmol/L (21-32) Anion Gap 7 (6-14) Blood Urea Nitrogen 17 mg/dL (7-20) Creatinine 1.2 mg/dL (0.6-1.0) Estimated GFR (Cockcroft-Gault) 51.5 Glucose Level 69 mg/dL (70-99) Calcium Level 8.9 mg/dL (8.5-10.1) Microbiology 03/20/21 Gram Stain - Final, Resulted 03/20/21 Aerobic and Anaerobic Culture - Preliminary, Resulted 03/14/21 Blood Culture - Final, Complete NO GROWTH AFTER 5 DAYS Medications Current Medications Vancomycin HCl 1.5 gm/Sodium Chloride 500 ml @ 250 mls/hr 1X ONCE IV ; Start 03/14/21 at 11:45; Stop 03/14/21 at 11:35; Status DC Ceftriaxone Sodium (Rocephin) 1 gm 1X ONCE IVP Last administered on 03/14/21at 11:30; Start 03/14/21 at 11:45; Stop 03/14/21 at 11:35; Status DC Piperacillin Sod/ Tazobactam Sod 4.5 gm/Sodium Chloride 100 ml @ 200 mls/hr 1X ONCE IV Last administered on 03/14/21at 11:52; Start 03/14/21 at 12:00; Stop 03/14/21 at 12:29; Status DC Linezolid/Dextrose 300 ml @ 300 mls/hr Q12HR IV Last administered on 03/23/21at 09:23; Start 03/14/21 at 13:00; Stop 03/23/21 at 11:35; Status DC Piperacillin Sod/ Tazobactam Sod 3.375 gm/Sodium Chloride 50 ml @ 100 mls/hr Q6HRS IV Last administered on 03/15/21at 05:06; Start 03/14/21 at 18:00; Stop 03/15/21 at 09:35; Status DC Acetaminophen (Tylenol) 650 mg PRN Q6HRS PRN PO MILD PAIN / TEMP > 100.3'F Last administered on 03/22/21at 05:30; Start 03/14/21 at 16:00 Carbidopa/Levodopa (Sinemet Cr) 2 tab.sa TID PO Last administered on 03/24/21at 09:48; Start 03/14/21 at 14:00 Apixaban (Eliquis) 2.5 mg BID PO Last administered on 03/19/21at 08:38; Start 03/14/21 at 21:00; Stop 03/19/21 at 15:19; Status DC Ferrous Sulfate (Feosol) 325 mg DAILYWBKFT PO Last administered on 03/24/21at 09:49; Start 03/15/21 at 08:00 Furosemide (Lasix) 20 mg DAILY PO Last administered on 03/24/21at 09:49; Start 03/15/21 at 09:00 Vitamin D (Vitamin D3) 1,000 unit DAILY PO Last administered on 03/24/21at 09:48; Start 03/15/21 at 09:00 Pramipexole Dihydrochloride (miraPEX) 0.5 mg [id number] PO Last administered on 03/24/21at 09:49; Start 03/14/21 at 16:30 Magnesium Hydroxide (Milk Of Magnesia) 2,400 mg PRN DAILY PRN PO CONSTIPATION; Start 03/14/21 at 16:00 Piperacillin Sod/ Tazobactam Sod (Zosyn Per Pharmacy) 1 each PRN DAILY PRN MC SEE COMMENTS; Start 03/14/21 at 16:15 Piperacillin Sod/ Tazobactam Sod 2.25 gm/Sodium Chloride 50 ml @ 100 mls/hr Q6HRS IV Last administered on 03/24/21at 05:53; Start 03/15/21 at 12:00 Lactobacillus Rhamnosus (Culturelle) 1 cap BID PO Last administered on 03/24/21at 09:48; Start 03/16/21 at 21:00 Gadoterate Meglumine (Clariscan) 15 ml 1X ONCE IVP Last administered on 03/17/21at 09:25; Start 03/17/21 at 09:30; Stop 03/17/21 at 09:31; Status DC Amlodipine Besylate (Norvasc) 2.5 mg DAILY PO Last administered on 03/23/21at 09:23; Start 03/17/21 at 11:00; Stop 03/23/21 at 11:36; Status DC Fentanyl Citrate (Fentanyl 2ml Vial) 25 mcg PRN Q5MIN PRN IVP MILD PAIN 1-3; Start 03/20/21 at 06:00; Stop 03/21/21 at 05:59; Status DC Fentanyl Citrate (Fentanyl 2ml Vial) 50 mcg PRN Q5MIN PRN IVP MODERATE PAIN 4-6 Last administered on 03/20/21at 08:26; Start 03/20/21 at 06:00; Stop 03/21/21 at 05:59; Status DC Morphine Sulfate (Morphine Sulfate) 1 mg PRN Q10MIN PRN IVP SEVERE PAIN 7-10; Start 03/20/21 at 06:00; Stop 03/21/21 at 05:59; Status DC Ringer's Solution 1,000 ml @ 30 mls/hr Q24H IV Last administered on 03/20/21at 07:00; Start 03/20/21 at 06:00; Stop 03/20/21 at 17:59; Status DC Hydromorphone HCl (Dilaudid) 0.5 mg PRN Q10MIN PRN IVP SEVERE PAIN 7-10, 2nd CHOICE; Start 03/20/21 at 06:00; Stop 03/21/21 at 05:59; Status DC Prochlorperazine Edisylate (Compazine) 5 mg PACU PRN PRN IVP NAUSEA, MRX1; Start 03/20/21 at 06:00; Stop 03/21/21 at 05:59; Status DC Propofol (Diprivan) 200 mg STK-MED ONCE IV ; Start 03/20/21 at 07:01; Stop 03/20/21 at 07:01; Status DC Propofol (Diprivan) 200 mg STK-MED ONCE IV ; Start 03/20/21 at 07:01; Stop 03/20/21 at 07:01; Status DC Fentanyl Citrate (Fentanyl 2ml Vial) 100 mcg STK-MED ONCE .ROUTE ; Start 03/20/21 at 07:02; Stop 03/20/21 at 07:02; Status DC Dexamethasone Sodium Phosphate (Decadron) 4 mg STK-MED ONCE .ROUTE ; Start 03/20/21 at 07:02; Stop 03/20/21 at 07:02; Status DC Ondansetron HCl (Zofran) 4 mg STK-MED ONCE .ROUTE ; Start 03/20/21 at 07:03; Stop 03/20/21 at 07:04; Status DC Lidocaine HCl (Lidocaine Pf 2% Vial) 5 ml STK-MED ONCE .ROUTE ; Start 03/20/21 at 07:03; Stop 03/20/21 at 07:04; Status DC Fentanyl Citrate (Fentanyl 2ml Vial) 100 mcg STK-MED ONCE .ROUTE ; Start 03/20/21 at 07:58; Stop 03/20/21 at 07:58; Status DC Oxycodone/ Acetaminophen (Percocet 5/325) 1 tab 1X ONCE PO Last administered on 03/20/21at 10:25; Start 03/20/21 at 08:15; Stop 03/20/21 at 08:21; Status DC Apixaban (Eliquis) 5 mg BID PO Last administered on 03/24/21at 09:49; Start 03/21/21 at 09:00 Amlodipine Besylate (Norvasc) 5 mg DAILY PO Last administered on 03/24/21at 09:49; Start 03/24/21 at 09:00 Amlodipine Besylate (Norvasc) 2.5 mg ONCE ONCE PO Last administered on 03/23/21at 13:40; Start 03/23/21 at 12:00; Stop 03/23/21 at 12:09; Status DC Active Scripts Active Furosemide 20 Mg Tablet 20 Mg PO DAILY Eliquis (Apixaban) 5 Mg Tablet 5 Mg PO BID [Fluconazole] 100 MG Tablet 100 Mg PO DAILY 5 Days Zyvox (Linezolid) 600 Mg Tablet 600 Mg PO BID 5 Days Zosyn 2.25 Gm Pre-Mix Bag (Elnvhwfcvlby-Dorn-Fllaxsmy,Iso) 2.25 Gm/50 Ml Froz.piggy 2.25 Gm IV Q6HRS 5 Days Hydrocodone-Acetamin 5-325 mg (Hydrocodone/Acetaminophen) 1 Each Tablet 1 Each PO Q6HRS PRN Culturelle (Lactobacillus Rhamnosus Gg) 1 Each Cap.sprink 1 Cap PO BID 10 Days Acetaminophen 500 Mg Tablet 500 Mg PO PRN Q4HRS PRN Reported Mirapex (Pramipexole Di-Hcl) 0.25 Mg Tablet 0.5 Mg PO TID Vitamin D3 (Cholecalciferol (Vitamin D3)) 1,000 Unit Tablet 1,000 Unit PO DAILY Sinemet Cr 50-200 Tablet (Carbidopa/Levodopa) 1 Each Tablet.er 1 Tab PO TID Vitals/I & O Vital Sign - Last 24 Hours 03/23/21 03/23/21 03/23/21 03/23/21 11:00 13:40 15:00 19:00 Temp 97.9 97.4 98.4 97.9 97.4 98.4 Pulse 76 101 91 74 Resp 18 18 18 B/P (MAP) 176/77 (110) 135/81 142/83 (102) 137/72 (93) Pulse Ox 94 98 99 O2 Delivery Room Air Room Air Room Air 03/23/21 03/23/21 03/24/21 03/24/21 20:00 23:00 03:00 07:00 Temp 98.1 98.4 98.0 98.1 98.4 98.0 Pulse 85 83 80 Resp 18 18 16 B/P (MAP) 162/82 (108) 164/74 (104) 133/72 (92) Pulse Ox 96 96 96 O2 Delivery Room Air Room Air Room Air Room Air 03/24/21 09:49 Pulse 80 B/P (MAP) 133/72 Intake and Output0 03/23/21 03/23/21 03/24/21 15:00 23:00 07:00 Intake Total 50 ml Balance 50 ml Justifications for Admission Other Justification Nutrition Consultation Dietary Evaluation: Recommendations by RD: Dietary education by RD, Increase Calorie Intake, Protein supplementation Comments: regular ensure enlive bid REC mvi and vit c per wound protocal Expected Outcomes/Goals: to meet >75% est nutr needs improved wound status Interpretation of weight loss: >7.5% in 3 months Malnutrition Findings: Food and Nutrition Intake (Mod: <75% est energy req 7days Weight Status: Overweight HEATHER KOCH DPM Mar 24, 2021 10:27
--- NOTE | 2021-03-24 10:52 | PDOC ---
PROGRESS NOTES Date of Service DATE: 03/24/21 TIME: 10:50 Subjective Subjective feels well. bowels are okay. discussed with ID. Objective Objective Vital Signs Date Time Temp Pulse Resp B/P (MAP) Pulse Ox O2 Delivery O2 Flow Rate FiO2 03/24/21 09:49 80 133/72 03/24/21 07:00 98.0 16 96 Room Air 98.0 03/20/21 08:26 2.0 Intake and Output0 03/24/21 07:00 Intake Total 50 ml Balance 50 ml IV Total 50 ml # Voids 5 # Bowel Movements 1 Physical Exam Abdomen: Soft Heart: Regular rate, Normal S1, Normal S2 Extremities: Other (LLE splint with wound vac) General: Alert, Other HEENT: Atraumatic Lungs: Clear to auscultation Neuro: Normal speech Psych/Mental Status: Mood NL Skin: No rashes Assessment Assessment ProblemsLeft calf wound which overlies the distal left fibula. wound cultures grew Proteus and enterococcus. MRI neg for osteomyelitis. incision and drainage of wound 03/20/21 3. Chronic kidney disease stage 3. 4. Chronic venous insufficiency of the legs. 5. Parkinson's disease. 6. Anemia of chronic disease. 7. 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 Medical Problems: (1) Osteomyelitis Status: Acute Plan Plan of Care continue zyvox and zosyn delayed wound closure tues or wed continue wound care and wound vac continue sinemet and mirapex PT and OT Comment Review of Relevant I have reviewed the following items cathleen (where applicable) has been applied. Labs Laboratory Tests Test 03/23/21 06:40 White Blood Count 7.4 x10^3/uL (4.0-11.0) Red Blood Count 4.04 x10^6/uL (3.50-5.40) Hemoglobin 7.8 g/dL (12.0-15.5) Hematocrit 25.3 % (36.0-47.0) Mean Corpuscular Volume 63 fL (79-100) Mean Corpuscular Hemoglobin 19 pg (25-35) Mean Corpuscular Hemoglobin Concent 31 g/dL (31-37) Red Cell Distribution Width 18.1 % (11.5-14.5) Platelet Count 212 x10^3/uL (140-400) Neutrophils (%) (Auto) 71 % (31-73) Lymphocytes (%) (Auto) 19 % (24-48) Monocytes (%) (Auto) 3 % (0-9) Eosinophils (%) (Auto) 5 % (0-3) Basophils (%) (Auto) 2 % (0-3) Neutrophils # (Auto) 5.3 x10^3/uL (1.8-7.7) Lymphocytes # (Auto) 1.4 x10^3/uL (1.0-4.8) Monocytes # (Auto) 0.2 x10^3/uL (0.0-1.1) Eosinophils # (Auto) 0.4 x10^3/uL (0.0-0.7) Basophils # (Auto) 0.1 x10^3/uL (0.0-0.2) Sodium Level 140 mmol/L (136-145) Potassium Level 3.7 mmol/L (3.5-5.1) Chloride Level 105 mmol/L (98-107) Carbon Dioxide Level 28 mmol/L (21-32) Anion Gap 7 (6-14) Blood Urea Nitrogen 17 mg/dL (7-20) Creatinine 1.2 mg/dL (0.6-1.0) Estimated GFR (Cockcroft-Gault) 51.5 Glucose Level 69 mg/dL (70-99) Calcium Level 8.9 mg/dL (8.5-10.1) Microbiology 03/20/21 Gram Stain - Final, Resulted 03/20/21 Aerobic and Anaerobic Culture - Preliminary, Resulted 03/14/21 Blood Culture - Final, Complete NO GROWTH AFTER 5 DAYS Medications Current Medications Vancomycin HCl 1.5 gm/Sodium Chloride 500 ml @ 250 mls/hr 1X ONCE IV ; Start 03/14/21 at 11:45; Stop 03/14/21 at 11:35; Status DC Ceftriaxone Sodium (Rocephin) 1 gm 1X ONCE IVP Last administered on 03/14/21at 11:30; Start 03/14/21 at 11:45; Stop 03/14/21 at 11:35; Status DC Piperacillin Sod/ Tazobactam Sod 4.5 gm/Sodium Chloride 100 ml @ 200 mls/hr 1X ONCE IV Last administered on 03/14/21at 11:52; Start 03/14/21 at 12:00; Stop 03/14/21 at 12:29; Status DC Linezolid/Dextrose 300 ml @ 300 mls/hr Q12HR IV Last administered on 03/23/21at 09:23; Start 03/14/21 at 13:00; Stop 03/23/21 at 11:35; Status DC Piperacillin Sod/ Tazobactam Sod 3.375 gm/Sodium Chloride 50 ml @ 100 mls/hr Q6HRS IV Last administered on 03/15/21at 05:06; Start 03/14/21 at 18:00; Stop 03/15/21 at 09:35; Status DC Acetaminophen (Tylenol) 650 mg PRN Q6HRS PRN PO MILD PAIN / TEMP > 100.3'F Last administered on 03/22/21at 05:30; Start 03/14/21 at 16:00 Carbidopa/Levodopa (Sinemet Cr) 2 tab.sa TID PO Last administered on 03/24/21at 09:48; Start 03/14/21 at 14:00 Apixaban (Eliquis) 2.5 mg BID PO Last administered on 03/19/21at 08:38; Start 03/14/21 at 21:00; Stop 03/19/21 at 15:19; Status DC Ferrous Sulfate (Feosol) 325 mg DAILYWBKFT PO Last administered on 03/24/21at 09:49; Start 03/15/21 at 08:00 Furosemide (Lasix) 20 mg DAILY PO Last administered on 03/24/21at 09:49; Start 03/15/21 at 09:00 Vitamin D (Vitamin D3) 1,000 unit DAILY PO Last administered on 03/24/21at 09:48; Start 03/15/21 at 09:00 Pramipexole Dihydrochloride (miraPEX) 0.5 mg [id number] PO Last administered on 03/24/21at 09:49; Start 03/14/21 at 16:30 Magnesium Hydroxide (Milk Of Magnesia) 2,400 mg PRN DAILY PRN PO CONSTIPATION; Start 03/14/21 at 16:00 Piperacillin Sod/ Tazobactam Sod (Zosyn Per Pharmacy) 1 each PRN DAILY PRN MC SEE COMMENTS; Start 03/14/21 at 16:15 Piperacillin Sod/ Tazobactam Sod 2.25 gm/Sodium Chloride 50 ml @ 100 mls/hr Q6HRS IV Last administered on 03/24/21at 05:53; Start 03/15/21 at 12:00 Lactobacillus Rhamnosus (Culturelle) 1 cap BID PO Last administered on 03/24/21at 09:48; Start 03/16/21 at 21:00 Gadoterate Meglumine (Clariscan) 15 ml 1X ONCE IVP Last administered on 03/17/21at 09:25; Start 03/17/21 at 09:30; Stop 03/17/21 at 09:31; Status DC Amlodipine Besylate (Norvasc) 2.5 mg DAILY PO Last administered on 03/23/21at 09:23; Start 03/17/21 at 11:00; Stop 03/23/21 at 11:36; Status DC Fentanyl Citrate (Fentanyl 2ml Vial) 25 mcg PRN Q5MIN PRN IVP MILD PAIN 1-3; Start 03/20/21 at 06:00; Stop 03/21/21 at 05:59; Status DC Fentanyl Citrate (Fentanyl 2ml Vial) 50 mcg PRN Q5MIN PRN IVP MODERATE PAIN 4-6 Last administered on 03/20/21at 08:26; Start 03/20/21 at 06:00; Stop 03/21/21 at 05:59; Status DC Morphine Sulfate (Morphine Sulfate) 1 mg PRN Q10MIN PRN IVP SEVERE PAIN 7-10; Start 03/20/21 at 06:00; Stop 03/21/21 at 05:59; Status DC Ringer's Solution 1,000 ml @ 30 mls/hr Q24H IV Last administered on 03/20/21at 07:00; Start 03/20/21 at 06:00; Stop 03/20/21 at 17:59; Status DC Hydromorphone HCl (Dilaudid) 0.5 mg PRN Q10MIN PRN IVP SEVERE PAIN 7-10, 2nd CHOICE; Start 03/20/21 at 06:00; Stop 03/21/21 at 05:59; Status DC Prochlorperazine Edisylate (Compazine) 5 mg PACU PRN PRN IVP NAUSEA, MRX1; Start 03/20/21 at 06:00; Stop 03/21/21 at 05:59; Status DC Propofol (Diprivan) 200 mg STK-MED ONCE IV ; Start 03/20/21 at 07:01; Stop 03/20/21 at 07:01; Status DC Propofol (Diprivan) 200 mg STK-MED ONCE IV ; Start 03/20/21 at 07:01; Stop 03/20/21 at 07:01; Status DC Fentanyl Citrate (Fentanyl 2ml Vial) 100 mcg STK-MED ONCE .ROUTE ; Start 03/20/21 at 07:02; Stop 03/20/21 at 07:02; Status DC Dexamethasone Sodium Phosphate (Decadron) 4 mg STK-MED ONCE .ROUTE ; Start 03/20/21 at 07:02; Stop 03/20/21 at 07:02; Status DC Ondansetron HCl (Zofran) 4 mg STK-MED ONCE .ROUTE ; Start 03/20/21 at 07:03; Stop 03/20/21 at 07:04; Status DC Lidocaine HCl (Lidocaine Pf 2% Vial) 5 ml STK-MED ONCE .ROUTE ; Start 03/20/21 at 07:03; Stop 03/20/21 at 07:04; Status DC Fentanyl Citrate (Fentanyl 2ml Vial) 100 mcg STK-MED ONCE .ROUTE ; Start 03/20/21 at 07:58; Stop 03/20/21 at 07:58; Status DC Oxycodone/ Acetaminophen (Percocet 5/325) 1 tab 1X ONCE PO Last administered on 03/20/21at 10:25; Start 03/20/21 at 08:15; Stop 03/20/21 at 08:21; Status DC Apixaban (Eliquis) 5 mg BID PO Last administered on 03/24/21at 09:49; Start 03/21/21 at 09:00 Amlodipine Besylate (Norvasc) 5 mg DAILY PO Last administered on 03/24/21at 09:49; Start 03/24/21 at 09:00 Amlodipine Besylate (Norvasc) 2.5 mg ONCE ONCE PO Last administered on 03/23/21at 13:40; Start 03/23/21 at 12:00; Stop 03/23/21 at 12:09; Status DC Active Scripts Active Furosemide 20 Mg Tablet 20 Mg PO DAILY Eliquis (Apixaban) 5 Mg Tablet 5 Mg PO BID [Fluconazole] 100 MG Tablet 100 Mg PO DAILY 5 Days Zyvox (Linezolid) 600 Mg Tablet 600 Mg PO BID 5 Days Zosyn 2.25 Gm Pre-Mix Bag (Tnxqrjcwmdhy-Mmwk-Inwktjvt,Iso) 2.25 Gm/50 Ml Froz.piggy 2.25 Gm IV Q6HRS 5 Days Hydrocodone-Acetamin 5-325 mg (Hydrocodone/Acetaminophen) 1 Each Tablet 1 Each PO Q6HRS PRN Culturelle (Lactobacillus Rhamnosus Gg) 1 Each Cap.sprink 1 Cap PO BID 10 Days Acetaminophen 500 Mg Tablet 500 Mg PO PRN Q4HRS PRN Reported Mirapex (Pramipexole Di-Hcl) 0.25 Mg Tablet 0.5 Mg PO TID Vitamin D3 (Cholecalciferol (Vitamin D3)) 1,000 Unit Tablet 1,000 Unit PO DAILY Sinemet Cr 50-200 Tablet (Carbidopa/Levodopa) 1 Each Tablet.er 1 Tab PO TID Vitals/I & O Vital Sign - Last 24 Hours 03/23/21 03/23/21 03/23/21 03/23/21 11:00 13:40 15:00 19:00 Temp 97.9 97.4 98.4 97.9 97.4 98.4 Pulse 76 101 91 74 Resp 18 18 18 B/P (MAP) 176/77 (110) 135/81 142/83 (102) 137/72 (93) Pulse Ox 94 98 99 O2 Delivery Room Air Room Air Room Air 03/23/21 03/23/21 03/24/21 03/24/21 20:00 23:00 03:00 07:00 Temp 98.1 98.4 98.0 98.1 98.4 98.0 Pulse 85 83 80 Resp 18 18 16 B/P (MAP) 162/82 (108) 164/74 (104) 133/72 (92) Pulse Ox 96 96 96 O2 Delivery Room Air Room Air Room Air Room Air 03/24/21 09:49 Pulse 80 B/P (MAP) 133/72 Intake and Output 03/23/21 03/23/21 03/24/21 15:00 23:00 07:00 Intake Total 50 ml Balance 50 ml Justifications for Admission Other Justification Nutrition Consultation Dietary Evaluation: Recommendations by RD: Dietary education by RD, Increase Calorie Intake, Protein supplementation Comments: regular ensure enlive bid REC mvi and vit c per wound protocal Expected Outcomes/Goals: to meet >75% est nutr needs improved wound status Interpretation of weight loss: >7.5% in 3 months Malnutrition Findings: Food and Nutrition Intake (Mod: <75% est energy req 7days Weight Status: Overweight ELI ROSALES MD Mar 24, 2021 10:52
[2021-03-24 11:00] VITALS: BP 140/70
[2021-03-24 15:00] VITALS: BP 113/66
[2021-03-24 19:00] VITALS: BP 143/59
[2021-03-24 23:00] VITALS: BP 126/58
[2021-03-25] VITALS (7 sets, daily range): BP systolic 122–161; BP diastolic 61–77
[2021-03-25] MEDS: ACETAMINOPHEN 325 MG TABLET. PO PRN (03:44)
[2021-03-25] MEDS: PIPERACILLIN/TAZOBACTAM 2.25 GM in IV NORMAL SALINE 50ML 50 ML IV SCH ×3 (06:22→17:47)
--- NOTE | 2021-03-25 08:23 | PDOC ---
Infectious Disease Note Subjective: Subjective Patient feels better Denies fever, nausea, vomiting or diarrhea Vital Signs: Vital Signs Vital Signs Date Time Temp Pulse Resp B/P (MAP) Pulse Ox O2 Delivery O2 Flow Rate FiO2 03/25/21 07:20 98.1 76 18 125/63 (83) 95 Room Air 98.1 Physical Exam: PHYSICAL EXAM GENERAL: Alert awake female sitting at the edge of the bed in no acute distress HEENT: Normocephalic, atraumatic. Anicteric. Oral mucosa moist. NECK: Supple. LUNGS: Clear bilaterally. HEART: S1, S2. ABDOMEN: Soft, nontender, bowel sounds present. EXTREMITIES: Right lower extremity has edema, 1-2+ edema of the left lower extremity. There is 2 open wound lateral aspect of foot, seen with Dr. Jin appears clean, no purulence, healthy granulation tissue DERMATOLOGIC: Warm, dry, no generalized rash except for above. NEUROLOGIC: Alert, oriented x 3, grossly nonfocal. PSYCHIATRIC: Calm and cooperative.. Medications: Inpatient Meds: Medications reviewed. Labs: Micro RUN DATE: 03/17/21 [facility] *LIVE* PAGE 1 RUN TIME: 826 Specimen Inquiry PATIENT: JACKIE GROVES ACCT: [id number] LOC: [address] [place] [address] U: [id number] AGE/SX: 86/F ROOM: 408 RE03/14/[address]: ELI MILES MD : [id number] BED: 1 DIS: STATUS: ADM IN TLOC: SPEC #: [id number] JASMIN: 03/14/21 STATUS: RES REQ #: [id number] RECD: 03/14/21 [facility] DR: ELI MILES MD SOURCE: LEG ENTR: 03/14/[address]: EZRA RUIZ MD SPDC: WOUND KATHARINE,ELI CARTER,STACEY Garcia MD ORDERED: ANAER/AEROB/GS COMMENTS: LEFT LOWER LEG WOUND Procedure Result GRAM STAIN Final Final GRAM NEGATIVE RODS:FEW GRAM POSITIVE COCCI:RARE SQUAMOUS EPI CELL:NONE SEEN PMN (WBCs):MODERATE Unless otherwise specified, Testing Performed by: [address] [address] For Inquires, the Physician may contact the Microbiology department at [phone] ANAEROBIC-AEROBIC CULTURE Preliminary Preliminary MIXED AEROBIC AND ANAEROBIC TUCKER on 03/16/21 at 1359 INCLUDING: MANY [PROTEUS MIRABILIS] MANY [ENTEROCOCCUS FAECALIS] MANY [PORPHYROMONAS SOMERAE] PROTEUS MIRABILIS ENTEROCOCCUS FAECALIS PORPHYROMONAS SOMERAE ANTIMICROBIAL SUSCEPTIBILITY Preliminary Comment Comment NEG ROSA 56 PROTEUS MIRABILIS ANTIBIOTIC RESULT INTERPRETATION AMPICILLIN/SULBACTAM <=4/2 S AMIKACIN <=16 S AMPICILLIN <=8 S AMOXICILLIN/K CLAVULANATE <=8/4 S AZTREONAM <=4 S CEFTRIAXONE <=1 S CEFTAZIDIME <=1 S CEFOTAXIME <=2 S RUN DATE: 03/17/21 [facility] *LIVE* PAGE 2 RUN TIME: 08 Specimen Inquiry SPEC: [id number] PATIENT: JACKIE GROVES [id number] (Continued) Procedure Result CONTINUED ON NEXT PAGE RUN DATE: 03/17/21 [facility] *LIVE* PAGE 3 RUN TIME: 0827 Specimen Inquiry SPEC: [id number] PATIENT: LUCRETIA GROVESCARRI King [id number] (Continued) Procedure Result -- ANTIMICROBIAL SUSCEPTIBILITY Preliminary (continued) CEFOXITIN <=8 S CEFAZOLIN <=2 S CIPROFLOXACIN <=0.25 S CEFEPIME <=2 S CEFUROXIME <=4 S CEFTAZIDIME/AVIBACTAM <=4 S ERTAPENEM <=0.5 S GENTAMICIN <=2 S LEVOFLOXACIN <=0.5 S MEROPENEM <=1 S PIPERACILLIN/TAZOBACTAM <=8 S TRIMETHOPRIM/SULFAMETHOXAZOLE <=0.5/9.5 S TETRACYCLINE >8 R TOBRAMYCIN <=2 S Streptomycin Synergy Screen S Gentamicin Synergy Screen S POS ROSA TYPE 38 ENTEROCOCCUS FAECALIS ANTIBIOTIC RESULT INTERPRETATION AMPICILLIN <=2 S DAPTOMYCIN 1 S LINEZOLID 2 S PENICILLIN 2 S VANCOMYCIN 1 S Unless otherwise specified, Testing Performed by: [address] [address] For Inquires, the Physician may contact the Microbiology department at [phone] Objective: Assessment: 1. Chronic nonhealing left lateral leg wound, cellulitis and subcutaneous abscess distal to ulcer, MRI neg for OM. Swab cultures positive for Enterococcus faecalis, Proteus, PORPHYROMONAS SOMERAE 2. Chronic kidney disease, 3. Parkinson's. 4. History of bilateral DVT. March 20, 2021 status post L leg incision and drainage, wound vac application, posterior splint application No deep fascia, tendon or bone involved Operative cultures are pending Plan: Plan of Care 1. Continue Zosyn. Awaiting surgery this Wednesday per podiatry 2 Monitor labs and cultures. 3. Wound care as directed/activity as directed Discussed with Dr. Miles Discussed with nursing staff. TRAV IBARRA MD Mar 25, 2021 08:23
[2021-03-25] MEDS: PRAMIPEXOLE 0.25 MG TABLET. PO SCH ×3 (08:38→21:47)
[2021-03-25] MEDS: CARBIDOPA/LEVODOPA CR 25/100MG TABLET.SA. PO SCH ×3 (08:38→21:47)
[2021-03-25] MEDS: APIXABAN 5 MG TABLET. PO SCH ×2 (08:38→21:00)
[2021-03-25] MEDS: CHOLECALCIFEROL (VITAMIN D3) 1,000 UNIT TABLET PO SCH (08:39)
[2021-03-25] MEDS: FUROSEMIDE 20 MG TABLET PO SCH (08:39)
[2021-03-25] MEDS: FERROUS SULFATE 325 MG TABLET. PO SCH (08:39)
[2021-03-25] MEDS: LACTOBACILLUS RHAMNOSUS GG 1 CAPSULE. PO SCH ×2 (08:45→21:47)
--- NOTE | 2021-03-25 10:26 | NUR ---
SW following. Discussed with RN, pt accepted at [facility] when medically stable. Possible surgery tomorrow. SW will continue to follow.
--- NOTE | 2021-03-25 10:50 | PDOC ---
PROGRESS NOTES Date of Service DATE: 03/25/21 TIME: 10:48 Subjective Subjective feels well. comfortable. Objective Objective Vital Signs Date Time Temp Pulse Resp B/P (MAP) Pulse Ox O2 Delivery O2 Flow Rate FiO2 03/25/21 08:39 76 125/63 03/25/21 07:20 98.1 18 95 Room Air 98.1 03/20/21 08:26 2.0 Intake and Output 03/25/21 07:00 Intake Total 560 ml Balance 560 ml Intake Oral 560 ml Physical Exam Abdomen: Soft Heart: Regular rate, Normal S1, Normal S2 Extremities: Other (LLE splint with wound vac) General: Alert HEENT: Atraumatic Lungs: Clear to auscultation Neuro: Normal speech Psych/Mental Status: Mood NL Skin: No rashes Assessment Assessment ProblemsLeft calf wound which overlies the distal left fibula. wound cultures grew Proteus and enterococcus. MRI neg for osteomyelitis. incision and drainage of wound 03/20/21 3. Chronic kidney disease stage 3. 4. Chronic venous insufficiency of the legs. 5. Parkinson's disease. 6. Anemia of chronic disease. 7. 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 Medical Problems: (1) Osteomyelitis Status: Acute Plan Plan of Care continue iv zosyn secondary wound closure tomorrow PT and OT continue sinemet and mirapex lab tomorrow Comment Review of Relevant I have reviewed the following items cathleen (where applicable) has been applied. Labs Microbiology 03/20/21 Gram Stain - Final, Complete 03/20/21 Aerobic and Anaerobic Culture - Final, Complete 03/14/21 Blood Culture - Final, Complete NO GROWTH AFTER 5 DAYS Medications Current Medications Vancomycin HCl 1.5 gm/Sodium Chloride 500 ml @ 250 mls/hr 1X ONCE IV ; Start 03/14/21 at 11:45; Stop 03/14/21 at 11:35; Status DC Ceftriaxone Sodium (Rocephin) 1 gm 1X ONCE IVP Last administered on 03/14/21at 11:30; Start 03/14/21 at 11:45; Stop 03/14/21 at 11:35; Status DC Piperacillin Sod/ Tazobactam Sod 4.5 gm/Sodium Chloride 100 ml @ 200 mls/hr 1X ONCE IV Last administered on 03/14/21at 11:52; Start 03/14/21 at 12:00; Stop 03/14/21 at 12:29; Status DC Linezolid/Dextrose 300 ml @ 300 mls/hr Q12HR IV Last administered on 03/23/21at 09:23; Start 03/14/21 at 13:00; Stop 03/23/21 at 11:35; Status DC Piperacillin Sod/ Tazobactam Sod 3.375 gm/Sodium Chloride 50 ml @ 100 mls/hr Q6HRS IV Last administered on 03/15/21at 05:06; Start 03/14/21 at 18:00; Stop 03/15/21 at 09:35; Status DC Acetaminophen (Tylenol) 650 mg PRN Q6HRS PRN PO MILD PAIN / TEMP > 100.3'F Last administered on 03/25/21at 03:44; Start 03/14/21 at 16:00 Carbidopa/Levodopa (Sinemet Cr) 2 tab.sa TID PO Last administered on 03/25/21at 08:38; Start 03/14/21 at 14:00 Apixaban (Eliquis) 2.5 mg BID PO Last administered on 03/19/21at 08:38; Start 03/14/21 at 21:00; Stop 03/19/21 at 15:19; Status DC Ferrous Sulfate (Feosol) 325 mg DAILYWBKFT PO Last administered on 03/25/21at 08:39; Start 03/15/21 at 08:00 Furosemide (Lasix) 20 mg DAILY PO Last administered on 03/25/21at 08:39; Start 03/15/21 at 09:00 Vitamin D (Vitamin D3) 1,000 unit DAILY PO Last administered on 03/25/21at 08:39; Start 03/15/21 at 09:00 Pramipexole Dihydrochloride (miraPEX) 0.5 mg [id number] PO Last administered on 03/25/21at 08:38; Start 03/14/21 at 16:30 Magnesium Hydroxide (Milk Of Magnesia) 2,400 mg PRN DAILY PRN PO CONSTIPATION; Start 03/14/21 at 16:00 Piperacillin Sod/ Tazobactam Sod (Zosyn Per Pharmacy) 1 each PRN DAILY PRN MC SEE COMMENTS; Start 03/14/21 at 16:15 Piperacillin Sod/ Tazobactam Sod 2.25 gm/Sodium Chloride 50 ml @ 100 mls/hr Q6HRS IV Last administered on 03/25/21at 06:22; Start 03/15/21 at 12:00 Lactobacillus Rhamnosus (Culturelle) 1 cap BID PO Last administered on 03/25/21at 08:45; Start 03/16/21 at 21:00 Gadoterate Meglumine (Clariscan) 15 ml 1X ONCE IVP Last administered on 03/17/21at 09:25; Start 03/17/21 at 09:30; Stop 03/17/21 at 09:31; Status DC Amlodipine Besylate (Norvasc) 2.5 mg DAILY PO Last administered on 03/23/21at 09:23; Start 03/17/21 at 11:00; Stop 03/23/21 at 11:36; Status DC Fentanyl Citrate (Fentanyl 2ml Vial) 25 mcg PRN Q5MIN PRN IVP MILD PAIN 1-3; Start 03/20/21 at 06:00; Stop 03/21/21 at 05:59; Status DC Fentanyl Citrate (Fentanyl 2ml Vial) 50 mcg PRN Q5MIN PRN IVP MODERATE PAIN 4-6 Last administered on 03/20/21at 08:26; Start 03/20/21 at 06:00; Stop 03/21/21 at 05:59; Status DC Morphine Sulfate (Morphine Sulfate) 1 mg PRN Q10MIN PRN IVP SEVERE PAIN 7-10; Start 03/20/21 at 06:00; Stop 03/21/21 at 05:59; Status DC Ringer's Solution 1,000 ml @ 30 mls/hr Q24H IV Last administered on 03/20/21at 07:00; Start 03/20/21 at 06:00; Stop 03/20/21 at 17:59; Status DC Hydromorphone HCl (Dilaudid) 0.5 mg PRN Q10MIN PRN IVP SEVERE PAIN 7-10, 2nd CHOICE; Start 03/20/21 at 06:00; Stop 03/21/21 at 05:59; Status DC Prochlorperazine Edisylate (Compazine) 5 mg PACU PRN PRN IVP NAUSEA, MRX1; Start 03/20/21 at 06:00; Stop 03/21/21 at 05:59; Status DC Propofol (Diprivan) 200 mg STK-MED ONCE IV ; Start 03/20/21 at 07:01; Stop 03/20/21 at 07:01; Status DC Propofol (Diprivan) 200 mg STK-MED ONCE IV ; Start 03/20/21 at 07:01; Stop 03/20/21 at 07:01; Status DC Fentanyl Citrate (Fentanyl 2ml Vial) 100 mcg STK-MED ONCE .ROUTE ; Start 03/20/21 at 07:02; Stop 03/20/21 at 07:02; Status DC Dexamethasone Sodium Phosphate (Decadron) 4 mg STK-MED ONCE .ROUTE ; Start 03/20/21 at 07:02; Stop 03/20/21 at 07:02; Status DC Ondansetron HCl (Zofran) 4 mg STK-MED ONCE .ROUTE ; Start 03/20/21 at 07:03; Stop 03/20/21 at 07:04; Status DC Lidocaine HCl (Lidocaine Pf 2% Vial) 5 ml STK-MED ONCE .ROUTE ; Start 03/20/21 at 07:03; Stop 03/20/21 at 07:04; Status DC Fentanyl Citrate (Fentanyl 2ml Vial) 100 mcg STK-MED ONCE .ROUTE ; Start 03/20/21 at 07:58; Stop 03/20/21 at 07:58; Status DC Oxycodone/ Acetaminophen (Percocet 5/325) 1 tab 1X ONCE PO Last administered on 03/20/21at 10:25; Start 03/20/21 at 08:15; Stop 03/20/21 at 08:21; Status DC Apixaban (Eliquis) 5 mg BID PO Last administered on 03/25/21at 08:38; Start 03/21/21 at 09:00 Amlodipine Besylate (Norvasc) 5 mg DAILY PO Last administered on 03/25/21at 08:39; Start 03/24/21 at 09:00 Amlodipine Besylate (Norvasc) 2.5 mg ONCE ONCE PO Last administered on 03/23/21at 13:40; Start 03/23/21 at 12:00; Stop 03/23/21 at 12:09; Status DC Active Scripts Active Furosemide 20 Mg Tablet 20 Mg PO DAILY Eliquis (Apixaban) 5 Mg Tablet 5 Mg PO BID [Fluconazole] 100 MG Tablet 100 Mg PO DAILY 5 Days Zyvox (Linezolid) 600 Mg Tablet 600 Mg PO BID 5 Days Zosyn 2.25 Gm Pre-Mix Bag (Khxmuelxmpjc-Ykde-Vtfkgxwn,Iso) 2.25 Gm/50 Ml Froz.piggy 2.25 Gm IV Q6HRS 5 Days Hydrocodone-Acetamin 5-325 mg (Hydrocodone/Acetaminophen) 1 Each Tablet 1 Each PO Q6HRS PRN Culturelle (Lactobacillus Rhamnosus Gg) 1 Each Cap.sprink 1 Cap PO BID 10 Days Acetaminophen 500 Mg Tablet 500 Mg PO PRN Q4HRS PRN Reported Mirapex (Pramipexole Di-Hcl) 0.25 Mg Tablet 0.5 Mg PO TID Vitamin D3 (Cholecalciferol (Vitamin D3)) 1,000 Unit Tablet 1,000 Unit PO DAILY Sinemet Cr 50-200 Tablet (Carbidopa/Levodopa) 1 Each Tablet.er 1 Tab PO TID Vitals/I & O Vital Sign - Last 24 Hours 03/24/21 03/24/21 03/24/21 03/24/21 11:00 15:00 19:00 20:00 Temp 98.8 98.5 97.6 98.8 98.5 97.6 Pulse 74 78 88 Resp 18 18 18 B/P (MAP) 140/70 (93) 113/66 (82) 143/59 (87) Pulse Ox 97 96 95 O2 Delivery Room Air Room Air Room Air Room Air 03/24/21 03/25/21 03/25/21 03/25/21 23:00 03:00 07:20 08:39 Temp 98.6 99.0 98.1 98.6 99.0 98.1 Pulse 80 83 76 76 Resp 18 20 18 B/P (MAP) 126/58 (80) 149/62 (91) 125/63 (83) 125/63 Pulse Ox 93 95 95 O2 Delivery Room Air Room Air Room Air Intake and Output 03/24/21 03/24/21 03/25/21 15:00 23:00 07:00 Intake Total 200 ml 360 ml Balance 200 ml 360 ml Justifications for Admission Other Justification Nutrition Consultation Dietary Evaluation: Recommendations by RD: Dietary education by RD, Increase Calorie Intake, Protein supplementation Comments: regular ensure enlive bid REC mvi and vit c per wound protocal Expected Outcomes/Goals: to meet >75% est nutr needs improved wound status Interpretation of weight loss: >7.5% in 3 months Malnutrition Findings: Food and Nutrition Intake (Mod: <75% est energy req 7days Weight Status: Overweight ELI ROSALES MD Mar 25, 2021 10:50
[2021-03-25] MEDS ORDERED: ANTI-COAG MONITOR BY PHARMACY. MC PRN (11:45)
--- NOTE | 2021-03-25 21:00 | NUR ---
Jules held. OR in am.
[2021-03-26] VITALS (11 sets, daily range): BP systolic 102–151; BP diastolic 48–72
[2021-03-26] MEDS: PIPERACILLIN/TAZOBACTAM 2.25 GM in IV NORMAL SALINE 50ML 50 ML IV SCH ×5 (00:16→23:52)
[2021-03-26] MEDS ORDERED: PROCHLORPERAZINE 10 MG/2 ML VIAL. IVP PRN (06:00)
[2021-03-26] MEDS ORDERED: MORPHINE SULFATE 2 MG/ML INJ. IVP PRN (06:00)
[2021-03-26] MEDS ORDERED: HYDROmorphone 2 MG/ML VIAL IVP PRN (06:00)
[2021-03-26] MEDS ORDERED: IV RINGERS,LACTATED 1000ML 1,000 ML IV SCH (06:00)
[2021-03-26] MEDS ORDERED: fentaNYL PF VIAL 100 MCG/2 ML VIAL IVP PRN ×2 (06:00)
[2021-03-26 07:35] LABS: BASO # 0.1 x10^3/uL (0.0-0.2); BASO % 2 % (0-3); EOS # 0.5 x10^3/uL (0.0-0.7); EOS % 9 % (0-3); HEMATOCRIT 21.6 % (36.0-47.0); LYMPH # 1.4 x10^3/uL (1.0-4.8); LYMPH % 24 % (24-48); MEAN CORPUSCULAR HEMOGLOBIN 20 pg (25-35); MEAN CORPUSCULAR HGB CONC 32 g/dL (31-37); MEAN CORPUSCULAR VOLUME 62 fL (79-100); MONO # 0.3 x10^3/uL (0.0-1.1); MONO % 5 % (0-9); NEUT # 3.5 x10^3/uL (1.8-7.7); NEUT % 60 % (31-73); PLATELET COUNT 174 x10^3/uL (140-400); RED BLOOD COUNT 3.47 x10^6/uL (3.50-5.40); RED CELL DISTRIBUTION WIDTH 17.6 % (11.5-14.5); WHITE BLOOD COUNT 5.8 x10^3/uL (4.0-11.0)
[2021-03-26 07:41] LABS: HEMOGLOBIN 6.8 g/dL (12.0-15.5)
[2021-03-26 07:54] LABS: CALCIUM 8.8 mg/dL (8.5-10.1); CREATININE 1.4 mg/dL (0.6-1.0); GFR 43.1; POTASSIUM 3.8 mmol/L (3.5-5.1)
[2021-03-26] MEDS: FERROUS SULFATE 325 MG TABLET. PO SCH (08:00)
[2021-03-26] MEDS: APIXABAN 5 MG TABLET. PO SCH ×2 (08:01→20:49)
[2021-03-26] MEDS: FUROSEMIDE 20 MG TABLET PO SCH (08:01)
[2021-03-26] MEDS: PRAMIPEXOLE 0.25 MG TABLET. PO SCH ×3 (08:01→20:49)
[2021-03-26] MEDS: LACTOBACILLUS RHAMNOSUS GG 1 CAPSULE. PO SCH ×2 (08:01→20:49)
[2021-03-26] MEDS: CHOLECALCIFEROL (VITAMIN D3) 1,000 UNIT TABLET PO SCH (08:02)
[2021-03-26] MEDS: CARBIDOPA/LEVODOPA CR 25/100MG TABLET.SA. PO SCH ×3 (08:02→20:49)
[2021-03-26] MEDS ORDERED: BUPIVACAINE MPF 0.5% 30 ML VIAL. IJ ONE (08:12)
--- NOTE | 2021-03-26 08:44 | PDOC ---
Infectious Disease Note Subjective: Subjective Patient without complaints. Awaiting surgery today Vital Signs: Vital Signs Vital Signs Date Time Temp Pulse Resp B/P (MAP) Pulse Ox O2 Delivery O2 Flow Rate FiO2 03/26/21 07:09 98.5 77 15 160/74 97 Room Air 2 98.5 Physical Exam: PHYSICAL EXAM GENERAL: Alert awake female sitting at the edge of the bed in no acute distress HEENT: Normocephalic, atraumatic. Anicteric. Oral mucosa moist. NECK: Supple. LUNGS: Clear bilaterally. HEART: S1, S2. ABDOMEN: Soft, nontender, bowel sounds present. EXTREMITIES: Right lower extremity has edema, 1-2+ edema of the left lower extremity. There is 2 open wound lateral aspect of foot, seen with Dr. Jin appears clean, no purulence, healthy granulation tissue DERMATOLOGIC: Warm, dry, no generalized rash except for above. NEUROLOGIC: Alert, oriented x 3, grossly nonfocal. PSYCHIATRIC: Calm and cooperative.. Medications: Inpatient Meds: Medications reviewed. Labs: Lab Laboratory Tests Test 03/26/21 06:15 White Blood Count 5.8 x10^3/uL (4.0-11.0) Red Blood Count 3.47 x10^6/uL (3.50-5.40) Hemoglobin 6.8 g/dL (12.0-15.5) Hematocrit 21.6 % (36.0-47.0) Mean Corpuscular Volume 62 fL (79-100) Mean Corpuscular Hemoglobin 20 pg (25-35) Mean Corpuscular Hemoglobin Concent 32 g/dL (31-37) Red Cell Distribution Width 17.6 % (11.5-14.5) Platelet Count 174 x10^3/uL (140-400) Neutrophils (%) (Auto) 60 % (31-73) Lymphocytes (%) (Auto) 24 % (24-48) Monocytes (%) (Auto) 5 % (0-9) Eosinophils (%) (Auto) 9 % (0-3) Basophils (%) (Auto) 2 % (0-3) Neutrophils # (Auto) 3.5 x10^3/uL (1.8-7.7) Lymphocytes # (Auto) 1.4 x10^3/uL (1.0-4.8) Monocytes # (Auto) 0.3 x10^3/uL (0.0-1.1) Eosinophils # (Auto) 0.5 x10^3/uL (0.0-0.7) Basophils # (Auto) 0.1 x10^3/uL (0.0-0.2) Sodium Level 142 mmol/L (136-145) Potassium Level 3.8 mmol/L (3.5-5.1) Chloride Level 108 mmol/L (98-107) Carbon Dioxide Level 26 mmol/L (21-32) Anion Gap 8 (6-14) Blood Urea Nitrogen 18 mg/dL (7-20) Creatinine 1.4 mg/dL (0.6-1.0) Estimated GFR (Cockcroft-Gault) 43.1 Glucose Level 70 mg/dL (70-99) Calcium Level 8.8 mg/dL (8.5-10.1) Micro RUN DATE: 03/17/21 [facility] *LIVE* PAGE 1 RUN TIME: 826 Specimen Inquiry PATIENT: JACKIE GROVES Christine ACCT: [id number] LOC: [address] [place] [address] U: [id number] AGE/SX: 86/F ROOM: 408 RE03/14/[address]: ELI ROSALES MD : [id number] BED: 1 DIS: STATUS: ADM IN TLOC: SPEC #: [id number] JASMIN: 03/14/21 STATUS: RES REQ #: [id number] RECD: 03/14/21 [facility] [address]: ELI ROSALES MD SOURCE: LEG ENTR: 03/14/[address] [facility] [address]: EZRA RUIZ MD SPDESC: WOUND KATHARINE,ELI CARTER,STACEY Garcia MD ORDERED: ANAER/AEREKATERINA/GS COMMENTS: LEFT LOWER LEG WOUND Procedure Result GRAM STAIN Final Final GRAM NEGATIVE RODS:FEW GRAM POSITIVE COCCI:RARE SQUAMOUS EPI CELL:NONE SEEN PMN (WBCs):MODERATE Unless otherwise specified, Testing Performed by: [facility] [address] [place] [address] For Inquires, the Physician may contact the Microbiology department at [phone] ANAEROBIC-AEROBIC CULTURE Preliminary Preliminary MIXED AEROBIC AND ANAEROBIC TUCKER on 03/16/21 at 1359 INCLUDING: MANY [PROTEUS MIRABILIS] MANY [ENTEROCOCCUS FAECALIS] MANY [PORPHYROMONAS SOMERAE] PROTEUS MIRABILIS ENTEROCOCCUS FAECALIS PORPHYROMONAS SOMERAE ANTIMICROBIAL SUSCEPTIBILITY Preliminary Comment Comment NEG ROSA 56 PROTEUS MIRABILIS ANTIBIOTIC RESULT INTERPRETATION AMPICILLIN/SULBACTAM <=4/2 S AMIKACIN <=16 S AMPICILLIN <=8 S AMOXICILLIN/K CLAVULANATE <=8/4 S AZTREONAM <=4 S CEFTRIAXONE <=1 S CEFTAZIDIME <=1 S CEFOTAXIME <=2 S RUN DATE: 03/17/21 [facility] *LIVE* PAGE 2 RUN TIME: 826 Specimen Inquiry --- --------- SPEC: [id number] PATIENT: GERMAINJACKIE [id number] (Continued) Procedure Result CONTINUED ON NEXT PAGE RUN DATE: 03/17/21 [facility] *LIVE* PAGE 3 RUN TIME: 0827 Specimen Inquiry SPEC: [id number] PATIENT: JACKIE GROVES [id number] (Continued) Procedure Result ANTIMICROBIAL SUSCEPTIBILITY Preliminary (continued) CEFOXITIN <=8 S CEFAZOLIN <=2 S CIPROFLOXACIN <=0.25 S CEFEPIME <=2 S CEFUROXIME <=4 S CEFTAZIDIME/AVIBACTAM <=4 S ERTAPENEM <=0.5 S GENTAMICIN <=2 S LEVOFLOXACIN <=0.5 S MEROPENEM <=1 S PIPERACILLIN/TAZOBACTAM <=8 S TRIMETHOPRIM/SULFAMETHOXAZOLE <=0.5/9.5 S TETRACYCLINE >8 R TOBRAMYCIN <=2 S Streptomycin Synergy Screen S Gentamicin Synergy Screen S POS ROSA TYPE 38 ENTEROCOCCUS FAECALIS ANTIBIOTIC RESULT INTERPRETATION AMPICILLIN <=2 S DAPTOMYCIN 1 S LINEZOLID 2 S PENICILLIN 2 S VANCOMYCIN 1 S Unless otherwise specified, Testing Performed by: [address] [address] For Inquires, the Physician may contact the Microbiology department at [phone] Objective: Assessment: 1. Chronic nonhealing left lateral leg wound, cellulitis and subcutaneous abscess distal to ulcer, MRI neg for OM. Swab cultures positive for Enterococcus faecalis, Proteus, PORPHYROMONAS SOMERAE Intraoperative cultures negative, could be as patient was on broad-spectrum antibiotics prior to surgery 2. Chronic kidney disease, 3. Parkinson's. 4. History of bilateral DVT. March 20, 2021 status post L leg incision and drainage, wound vac application, posterior splint application No deep fascia, tendon or bone involved Operative cultures are negative Plan: Plan of Care 1. Change Zosyn. Do not place PICC line 2 Monitor labs and cultures. 3. Wound care as directed/activity as directed Discussed with nursing staff. TRAV IBARRA MD Mar 26, 2021 08:44
[2021-03-26] MEDS ORDERED: HYDROcodone/APAP 5/325MG 1 TAB TABLET PO PRN (09:15)
[2021-03-26] MEDS ORDERED: ACETAMINOPHEN 325 MG TABLET. PO ONE (09:15)
--- NOTE | 2021-03-26 09:19 | PDOC4 ---
OPERATIVE NOTE Date: Date: Mar 20, 2021 Pre-Op Diagnosis: Left distal leg chronic, nonhealing ulcer, s/p I&D of an abscess posterior to the chronic leg ulcer. Intraoperative culture returned negative for organism. Post-Op Diagnosis: Same as above Procedure Performed: Left leg incision and drainage, delayed wound closure, pinch skin graft harvest and application, wound VAC application and posterior splint application Surgeon: Heather Koch DPM Anesthesia Type: General Blood Loss: 10 cc Specimans Obtained: None Findings: Granular, clean incisional wound bed without undermining, proximal streaking, fluctuance. In the deeper fascia, tendon, muscle and bone were intact. The incisional wound measures 4 cm. Circular none healing chronic wound that has improved in size and measures approximately 1.5 x 1.5 cm. The wound bed was granular without exposed to tendon, muscle, bone. The island between the incisional wound and a circular nonhealing wound appear to slightly attenuated however blanchable without remarkable necrotic, ischemic changes. Complications: None Operative Note: Under mild sedation, patient was brought into the operating room and placed on the operating table in the supine position. Following IV general anesthesia induction, scheduled IV antibiotics, a formal timeout was performed to confirm patient's identity, procedure and procedure site. The left lower extremity was then prepped, draped using aseptic techniques. No tourniquet was placed to the left lower extremity. The attention was directed the to the left distal leg. The wound margins were refreshed with a #15 blade to healthy bleeding margins. The wound bed was gently debrided to healthy bleeding tissue. At this time, no proximal streaking, undermining, fluctuance or purulence were noted to either wound. The central island of skin was gently debrided and noted a partial-thickness wound approximately measured 0.3 x 0.3 cm. Then 1 L of normal saline was used to irrigate both wounds. The linear incisional wound was closed with 3-0 Vicryl and 4-0 nylon. The anterior circular wound was not able to be closed primarily due to the skin tension. The peripheral skin was also slightly attenuated due to PAD and chronic venous insufficiency. Therefore, a rotational free flap was not pursued. Instead, pinch grafts were harvested just proximal and anterior to the circular wound. A number 18-gauge needle was used to lift the epidermis/dermis and then a #15 blade was used to harvest a partial thickness graft, measures approximately 0.3 x 0.4 cm. The graft was transposed to the circular wound bed. Another similar size graft was also harvested and placed over the wound bed. Then an Adaptic was placed over the surgical wound/the pinch grafts and the donor sites. An incisional wound VAC was placed over the procedure sites. Adequate seal was noted at 125 mmHg. Post procedure anesthesia consisted of 6 cc of 0.25% Marcaine plain was infiltrated into the surgical site. Then the procedure sites were dressed with gauze, ABD, soft roll. The left lower extremity was immobilized in a well- padded Oconnell compression splint. Adequate digital perfusion was noted. Patient tolerated the procedure and anesthesia well with vital signs stable and neurovascular status intact. Patient was transferred to PACU for continuous recovery and that inpatient observation. The wound VAC will stay on for 7 to 10 days without any dressing change. Patient may be discharged to a short-term facility or home in 1 to 2 days if she is hemodynamically stable and medically optimized. I will see her as an outpatient for dressing change and wound care. HEATHER KOCH DPM Mar 26, 2021 09:19
--- NOTE | 2021-03-26 10:19 | NUR ---
SW following. Discussed with RN, pt having surgery today, and getting blood today. COVID test closer to discharge for [facility]. SW will continue to follow.
--- NOTE | 2021-03-26 12:56 | PDOC ---
PROGRESS NOTES Date of Service DATE: 03/26/21 TIME: 12:54 Subjective Subjective feels okay. returned from surgery. operative note not written yet. hgb 6.8 and receiving 1 unit prbc now.. stool brown per nurse. Objective Objective Vital Signs Date Time Temp Pulse Resp B/P (MAP) Pulse Ox O2 Delivery O2 Flow Rate FiO2 03/26/21 12:30 98.6 82 16 102/48 98.6 03/26/21 12:21 Room Air 03/26/21 11:00 95 03/26/21 09:41 2 Intake and Output 03/26/21 07:00 Intake Total 730 ml Balance 730 ml Intake Oral 730 ml # Voids 4 # Bowel Movements 2 Physical Exam Abdomen: Soft Heart: Regular rate, Normal S1, Normal S2 Extremities: Other (left leg wrapped with wound vac) General: Alert HEENT: Atraumatic Lungs: Clear to auscultation Neuro: Normal speech Psych/Mental Status: Mood NL Skin: No rashes Assessment Assessment ProblemsLeft calf wound which overlies the distal left fibula. wound cultures grew Proteus and enterococcus. MRI neg for osteomyelitis. incision and drainage of wound 03/20/21 3. Chronic kidney disease stage 3. 4. Chronic venous insufficiency of the legs. 5. Parkinson's disease. 6. Anemia of chronic disease. 7. 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 Medical Problems: (1) Osteomyelitis Status: Acute Plan Plan of Care transfuse 1 unit prbc continue wound vac await operative report continue zosyn lab tomorrow Comment Review of Relevant I have reviewed the following items cathleen (where applicable) has been applied. Labs Laboratory Tests Test 03/26/21 06:15 White Blood Count 5.8 x10^3/uL (4.0-11.0) Red Blood Count 3.47 x10^6/uL (3.50-5.40) Hemoglobin 6.8 g/dL (12.0-15.5) Hematocrit 21.6 % (36.0-47.0) Mean Corpuscular Volume 62 fL (79-100) Mean Corpuscular Hemoglobin 20 pg (25-35) Mean Corpuscular Hemoglobin Concent 32 g/dL (31-37) Red Cell Distribution Width 17.6 % (11.5-14.5) Platelet Count 174 x10^3/uL (140-400) Neutrophils (%) (Auto) 60 % (31-73) Lymphocytes (%) (Auto) 24 % (24-48) Monocytes (%) (Auto) 5 % (0-9) Eosinophils (%) (Auto) 9 % (0-3) Basophils (%) (Auto) 2 % (0-3) Neutrophils # (Auto) 3.5 x10^3/uL (1.8-7.7) Lymphocytes # (Auto) 1.4 x10^3/uL (1.0-4.8) Monocytes # (Auto) 0.3 x10^3/uL (0.0-1.1) Eosinophils # (Auto) 0.5 x10^3/uL (0.0-0.7) Basophils # (Auto) 0.1 x10^3/uL (0.0-0.2) Sodium Level 142 mmol/L (136-145) Potassium Level 3.8 mmol/L (3.5-5.1) Chloride Level 108 mmol/L (98-107) Carbon Dioxide Level 26 mmol/L (21-32) Anion Gap 8 (6-14) Blood Urea Nitrogen 18 mg/dL (7-20) Creatinine 1.4 mg/dL (0.6-1.0) Estimated GFR (Cockcroft-Gault) 43.1 Glucose Level 70 mg/dL (70-99) Calcium Level 8.8 mg/dL (8.5-10.1) Laboratory Tests Test 03/26/21 06:15 White Blood Count 5.8 x10^3/uL (4.0-11.0) Red Blood Count 3.47 x10^6/uL (3.50-5.40) Hemoglobin 6.8 g/dL (12.0-15.5) Hematocrit 21.6 % (36.0-47.0) Mean Corpuscular Volume 62 fL (79-100) Mean Corpuscular Hemoglobin 20 pg (25-35) Mean Corpuscular Hemoglobin Concent 32 g/dL (31-37) Red Cell Distribution Width 17.6 % (11.5-14.5) Platelet Count 174 x10^3/uL (140-400) Neutrophils (%) (Auto) 60 % (31-73) Lymphocytes (%) (Auto) 24 % (24-48) Monocytes (%) (Auto) 5 % (0-9) Eosinophils (%) (Auto) 9 % (0-3) Basophils (%) (Auto) 2 % (0-3) Neutrophils # (Auto) 3.5 x10^3/uL (1.8-7.7) Lymphocytes # (Auto) 1.4 x10^3/uL (1.0-4.8) Monocytes # (Auto) 0.3 x10^3/uL (0.0-1.1) Eosinophils # (Auto) 0.5 x10^3/uL (0.0-0.7) Basophils # (Auto) 0.1 x10^3/uL (0.0-0.2) Sodium Level 142 mmol/L (136-145) Potassium Level 3.8 mmol/L (3.5-5.1) Chloride Level 108 mmol/L (98-107) Carbon Dioxide Level 26 mmol/L (21-32) Anion Gap 8 (6-14) Blood Urea Nitrogen 18 mg/dL (7-20) Creatinine 1.4 mg/dL (0.6-1.0) Estimated GFR (Cockcroft-Gault) 43.1 Glucose Level 70 mg/dL (70-99) Calcium Level 8.8 mg/dL (8.5-10.1) Microbiology 03/20/21 Gram Stain - Final, Complete 03/20/21 Aerobic and Anaerobic Culture - Final, Complete 03/14/21 Blood Culture - Final, Complete NO GROWTH AFTER 5 DAYS Medications Current Medications Vancomycin HCl 1.5 gm/Sodium Chloride 500 ml @ 250 mls/hr 1X ONCE IV ; Start 03/14/21 at 11:45; Stop 03/14/21 at 11:35; Status DC Ceftriaxone Sodium (Rocephin) 1 gm 1X ONCE IVP Last administered on 03/14/21at 11:30; Start 03/14/21 at 11:45; Stop 03/14/21 at 11:35; Status DC Piperacillin Sod/ Tazobactam Sod 4.5 gm/Sodium Chloride 100 ml @ 200 mls/hr 1X ONCE IV Last administered on 03/14/21at 11:52; Start 03/14/21 at 12:00; Stop 03/14/21 at 12:29; Status DC Linezolid/Dextrose 300 ml @ 300 mls/hr Q12HR IV Last administered on 03/23/21at 09:23; Start 03/14/21 at 13:00; Stop 03/23/21 at 11:35; Status DC Piperacillin Sod/ Tazobactam Sod 3.375 gm/Sodium Chloride 50 ml @ 100 mls/hr Q6HRS IV Last administered on 03/15/21at 05:06; Start 03/14/21 at 18:00; Stop 03/15/21 at 09:35; Status DC Acetaminophen (Tylenol) 650 mg PRN Q6HRS PRN PO MILD PAIN / TEMP > 100.3'F Last administered on 03/25/21at 03:44; Start 03/14/21 at 16:00 Carbidopa/Levodopa (Sinemet Cr) 2 tab.sa TID PO Last administered on 03/25/21at 21:47; Start 03/14/21 at 14:00 Apixaban (Eliquis) 2.5 mg BID PO Last administered on 03/19/21at 08:38; Start 03/14/21 at 21:00; Stop 03/19/21 at 15:19; Status DC Ferrous Sulfate (Feosol) 325 mg DAILYWBKFT PO Last administered on 03/25/21at 08:39; Start 03/15/21 at 08:00 Furosemide (Lasix) 20 mg DAILY PO Last administered on 03/25/21at 08:39; Start 03/15/21 at 09:00 Vitamin D (Vitamin D3) 1,000 unit DAILY PO Last administered on 03/25/21at 08:39; Start 03/15/21 at 09:00 Pramipexole Dihydrochloride (miraPEX) 0.5 mg [id number] PO Last administered on 03/25/21at 21:47; Start 03/14/21 at 16:30 Magnesium Hydroxide (Milk Of Magnesia) 2,400 mg PRN DAILY PRN PO CONSTIPATION; Start 03/14/21 at 16:00 Piperacillin Sod/ Tazobactam Sod (Zosyn Per Pharmacy) 1 each PRN DAILY PRN MC SEE COMMENTS; Start 03/14/21 at 16:15 Piperacillin Sod/ Tazobactam Sod 2.25 gm/Sodium Chloride 50 ml @ 100 mls/hr Q6HRS IV Last administered on 03/26/21at 11:34; Start 03/15/21 at 12:00 Lactobacillus Rhamnosus (Culturelle) 1 cap BID PO Last administered on 03/25/21at 21:47; Start 03/16/21 at 21:00 Gadoterate Meglumine (Clariscan) 15 ml 1X ONCE IVP Last administered on 03/17/21at 09:25; Start 03/17/21 at 09:30; Stop 03/17/21 at 09:31; Status DC Amlodipine Besylate (Norvasc) 2.5 mg DAILY PO Last administered on 03/23/21at 09:23; Start 03/17/21 at 11:00; Stop 03/23/21 at 11:36; Status DC Fentanyl Citrate (Fentanyl 2ml Vial) 25 mcg PRN Q5MIN PRN IVP MILD PAIN 1-3; Start 03/20/21 at 06:00; Stop 03/21/21 at 05:59; Status DC Fentanyl Citrate (Fentanyl 2ml Vial) 50 mcg PRN Q5MIN PRN IVP MODERATE PAIN 4-6 Last administered on 03/20/21at 08:26; Start 03/20/21 at 06:00; Stop 03/21/21 at 05:59; Status DC Morphine Sulfate (Morphine Sulfate) 1 mg PRN Q10MIN PRN IVP SEVERE PAIN 7-10; Start 03/20/21 at 06:00; Stop 03/21/21 at 05:59; Status DC Ringer's Solution 1,000 ml @ 30 mls/hr Q24H IV Last administered on 03/20/21at 07:00; Start 03/20/21 at 06:00; Stop 03/20/21 at 17:59; Status DC Hydromorphone HCl (Dilaudid) 0.5 mg PRN Q10MIN PRN IVP SEVERE PAIN 7-10, 2nd CHOICE; Start 03/20/21 at 06:00; Stop 03/21/21 at 05:59; Status DC Prochlorperazine Edisylate (Compazine) 5 mg PACU PRN PRN IVP NAUSEA, MRX1; Start 03/20/21 at 06:00; Stop 03/21/21 at 05:59; Status DC Propofol (Diprivan) 200 mg STK-MED ONCE IV ; Start 03/20/21 at 07:01; Stop 03/20/21 at 07:01; Status DC Propofol (Diprivan) 200 mg STK-MED ONCE IV ; Start 03/20/21 at 07:01; Stop 03/20/21 at 07:01; Status DC Fentanyl Citrate (Fentanyl 2ml Vial) 100 mcg STK-MED ONCE .ROUTE ; Start 03/20/21 at 07:02; Stop 03/20/21 at 07:02; Status DC Dexamethasone Sodium Phosphate (Decadron) 4 mg STK-MED ONCE .ROUTE ; Start 03/20/21 at 07:02; Stop 03/20/21 at 07:02; Status DC Ondansetron HCl (Zofran) 4 mg STK-MED ONCE .ROUTE ; Start 03/20/21 at 07:03; Stop 03/20/21 at 07:04; Status DC Lidocaine HCl (Lidocaine Pf 2% Vial) 5 ml STK-MED ONCE .ROUTE ; Start 03/20/21 at 07:03; Stop 03/20/21 at 07:04; Status DC Fentanyl Citrate (Fentanyl 2ml Vial) 100 mcg STK-MED ONCE .ROUTE ; Start 03/20/21 at 07:58; Stop 03/20/21 at 07:58; Status DC Oxycodone/ Acetaminophen (Percocet 5/325) 1 tab 1X ONCE PO Last administered on 03/20/21at 10:25; Start 03/20/21 at 08:15; Stop 03/20/21 at 08:21; Status DC Apixaban (Eliquis) 5 mg BID PO Last administered on 03/25/21at 08:38; Start 03/21/21 at 09:00 Amlodipine Besylate (Norvasc) 5 mg DAILY PO Last administered on 03/25/21at 08:39; Start 03/24/21 at 09:00 Amlodipine Besylate (Norvasc) 2.5 mg ONCE ONCE PO Last administered on 03/23/21at 13:40; Start 03/23/21 at 12:00; Stop 03/23/21 at 12:09; Status DC Info (Anti-Coagulation Monitoring By Pharmacy) 1 each PRN DAILY PRN MC PER PROTOCOL Last administered on 03/25/21at 11:38; Start 03/25/21 at 11:45 Fentanyl Citrate (Fentanyl 2ml Vial) 25 mcg PRN Q5MIN PRN IVP MILD PAIN 1-3; Start 03/26/21 at 06:00; Stop 03/26/21 at 09:19; Status DC Fentanyl Citrate (Fentanyl 2ml Vial) 50 mcg PRN Q5MIN PRN IVP MODERATE PAIN 4-6; Start 03/26/21 at 06:00; Stop 03/26/21 at 09:19; Status DC Morphine Sulfate (Morphine Sulfate) 1 mg PRN Q10MIN PRN IVP SEVERE PAIN 7-10; Start 03/26/21 at 06:00; Stop 03/26/21 at 09:19; Status DC Ringer's Solution 1,000 ml @ 30 mls/hr Q24H IV Last administered on 03/26/21at 07:08; Start 03/26/21 at 06:00; Stop 03/26/21 at 09:19; Status DC Hydromorphone HCl (Dilaudid) 0.5 mg PRN Q10MIN PRN IVP SEVERE PAIN 7-10, 2nd CHOICE; Start 03/26/21 at 06:00; Stop 03/26/21 at 09:19; Status DC Prochlorperazine Edisylate (Compazine) 5 mg PACU PRN PRN IVP NAUSEA, MRX1; Start 03/26/21 at 06:00; Stop 03/27/21 at 05:59 Bupivacaine HCl (Sensorcaine Mpf 0.5%) 30 ml STK-MED ONCE IJ Last administered on 03/26/21at 08:12; Start 03/26/21 at 08:12; Stop 03/26/21 at 08:18; Status DC Acetaminophen (Tylenol) 650 mg 1X ONCE PO ; Start 03/26/21 at 09:15; Stop 03/26/21 at 09:19; Status DC Acetaminophen/ Hydrocodone Bitart (Lortab 5/325) 1 tab PRN Q6HRS PRN PO MODERATE TO SEVERE PAIN Last administered on 03/26/21at 12:21; Start 03/26/21 at 09:15 Active Scripts Active Furosemide 20 Mg Tablet 20 Mg PO DAILY Eliquis (Apixaban) 5 Mg Tablet 5 Mg PO BID [Fluconazole] 100 MG Tablet 100 Mg PO DAILY 5 Days Zyvox (Linezolid) 600 Mg Tablet 600 Mg PO BID 5 Days Zosyn 2.25 Gm Pre-Mix Bag (Dukyjodkffgt-Hdzk-Dpepduqi,Iso) 2.25 Gm/50 Ml Froz.piggy 2.25 Gm IV Q6HRS 5 Days Hydrocodone-Acetamin 5-325 mg (Hydrocodone/Acetaminophen) 1 Each Tablet 1 Each PO Q6HRS PRN Culturelle (Lactobacillus Rhamnosus Gg) 1 Each Cap.sprink 1 Cap PO BID 10 Days Acetaminophen 500 Mg Tablet 500 Mg PO PRN Q4HRS PRN Reported Mirapex (Pramipexole Di-Hcl) 0.25 Mg Tablet 0.5 Mg PO TID Vitamin D3 (Cholecalciferol (Vitamin D3)) 1,000 Unit Tablet 1,000 Unit PO DAILY Sinemet Cr 50-200 Tablet (Carbidopa/Levodopa) 1 Each Tablet.er 1 Tab PO TID Vitals/I & O Vital Sign - Last 24 Hours 03/25/21 03/25/21 03/25/21 03/25/21 15:28 19:20 19:45 23:02 Temp 98.6 98.5 98.5 98.6 98.5 98.5 Pulse 86 85 77 Resp 18 18 16 B/P (MAP) 135/75 (95) 137/61 (86) 142/68 (92) Pulse Ox 96 98 94 O2 Delivery Room Air Room Air Room Air Room Air 03/26/21 03/26/21 03/26/21 03/26/21 03:05 07:00 07:09 09:10 Temp 98.5 98.5 98.5 98.5 Pulse 87 77 Resp 18 15 B/P (MAP) 144/70 (94) 160/74 Pulse Ox 97 97 O2 Delivery Room Air Room Air Room Air Mask O2 Flow Rate 2 10 03/26/21 03/26/21 03/26/21 03/26/21 09:10 09:26 09:41 11:00 Temp 98.4 98.6 98.4 98.6 Pulse 72 68 68 74 Resp 14 15 17 16 B/P (MAP) 150/71 133/60 132/58 148/72 (97) Pulse Ox 100 100 100 95 O2 Delivery Simple Mask Simple Mask Nasal Cannula Room Air O2 Flow Rate 10 10 2 03/26/21 03/26/2103/26/21 12:08 12:21 12:30 Temp 98.6 98.6 98.6 98.6 Pulse 95 82 Resp 16 16 B/P (MAP) 148/72 102/48 O2 Delivery Room Air Intake and Output 03/25/21 03/25/21 03/26/21 15:00 23:00 07:00 Intake Total 200 ml 440 ml 90 ml Balance 200 ml 440 ml 90 ml Justifications for Admission Other Justification Nutrition Consultation Dietary Evaluation: Recommendations by RD: Dietary education by RD, Increase Calorie Intake, Protein supplementation Comments: regular ensure enlive bid REC mvi and vit c per wound protocal Expected Outcomes/Goals: to meet >75% est nutr needs improved wound status Interpretation of weight loss: >7.5% in 3 months Malnutrition Findings: Food and Nutrition Intake (Mod: <75% est energy req 7days Weight Status: Overweight ELI ROSALES MD Mar 26, 2021 12:56
[2021-03-27 02:58] VITALS: BP 151/80
[2021-03-27 04:59] LABS: BASO # 0.1 x10^3/uL (0.0-0.2); BASO % 1 % (0-3); EOS # 0.1 x10^3/uL (0.0-0.7); EOS % 2 % (0-3); HEMATOCRIT 23.6 % (36.0-47.0); HEMOGLOBIN 7.3 g/dL (12.0-15.5); LYMPH # 1.8 x10^3/uL (1.0-4.8); LYMPH % 32 % (24-48); MEAN CORPUSCULAR HEMOGLOBIN 20 pg (25-35); MEAN CORPUSCULAR HGB CONC 31 g/dL (31-37); MEAN CORPUSCULAR VOLUME 65 fL (79-100); MONO # 0.4 x10^3/uL (0.0-1.1); MONO % 7 % (0-9); NEUT # 3.2 x10^3/uL (1.8-7.7); NEUT % 57 % (31-73); PLATELET COUNT 167 x10^3/uL (140-400); RED BLOOD COUNT 3.63 x10^6/uL (3.50-5.40); RED CELL DISTRIBUTION WIDTH 19.5 % (11.5-14.5); WHITE BLOOD COUNT 5.5 x10^3/uL (4.0-11.0)
[2021-03-27 05:09] LABS: CALCIUM 8.8 mg/dL (8.5-10.1); CREATININE 1.2 mg/dL (0.6-1.0); GFR 51.5; POTASSIUM 3.9 mmol/L (3.5-5.1)
--- NOTE | 2021-03-27 05:23 | NUR ---
Unable to obtain pts daily wt due to refusing to get up so we could zero the bed.
[2021-03-27] MEDS: PIPERACILLIN/TAZOBACTAM 2.25 GM in IV NORMAL SALINE 50ML 50 ML IV SCH (05:44)
[2021-03-27 07:00] VITALS: BP 137/64
--- NOTE | 2021-03-27 08:22 | PDOC ---
PROGRESS NOTES Date of Service DATE: 03/27/21 TIME: 08:16 Subjective Subjective S/p 03/26 left leg repeat incision and drainage, delayed closure of the incisional wound, pinch autograft harvest and application to the chronic circular wound with wound VAC application and posterior splint immobilization Patient was seen at bedside resting comfortably. Patient has been tolerating the splint, dressing and VAC well. Patient denies any constitutional symptoms. She denies pain to the left lower extremity. However, she is slightly disoriented. She forgot that she had the surgery on 03/26. 24-hour event: hemoglobin is improving, blood loss for surgery was 10 cc Objective Objective Vital Signs Date Time Temp Pulse Resp B/P (MAP) Pulse Ox O2 Delivery O2 Flow Rate FiO2 03/27/21 07:00 98.8 68 18 137/64 (88) 96 Room Air 98.8 03/26/21 09:41 2 Intake and Output 03/27/21 07:00 Intake Total 450 ml Output Total 10 ml Balance 440 ml IV Total 450 ml Estimated Blood Loss 10 ml # Voids 4 Physical Exam Physical Exam General: Pleasant without distress Dermatology: -Splint and dressing are kept clean, dry and intact without any strikethrough -VAC is functioning at 125 mmHg continuous. Overnight drainage was minimal Vascular: -Foot is warm to touch -CFT less than 5 seconds x 5 Neurology: -Light touch sensation diminished to digits 1 through 5 Musculoskeletal: -Able to move digits -No TTP to distal leg -Calf is soft and nontender Assessment Assessment Problems Medical Problems: (1) Osteomyelitis Status: Acute Plan Plan of Care -Explained the surgical findings. I called his family and informed patient that we were able to close the primary incisional wound yesterday. The chronic circular wound was covered with pinch graft and a wound VAC on top of that. The skin graft will take 2 to 3 weeks to integrate. -Leave the dressing clean, dry and intact without any dressing change for 7 days -Wound care team to replace the wound VAC with Prevena incisional VAC without taking down the dressing. I will be present at bedside for VAC replacement today -Strict nonweightbearing to the left lower extremity to avoid shear pressure and graft failure -Elevate the left lower extremity with toes to the heart level -PT eval and treat for upper body mobility -DVT prophylaxis, per internal medicine -Antibiotics: Per ID -Once patient is medically stabilized, wound VAC was changed over to Charo later today, patient is safe to be discharged from podiatry's perspective. Our office will call patient for outpatient follow-up in 1 week for dressing change and skin check. Comment Review of Relevant I have reviewed the following items cathleen (where applicable) has been applied. Labs Laboratory Tests Test 03/26/21 06:15 03/27/21 04:35 White Blood Count 5.8 x10^3/uL (4.0-11.0) 5.5 x10^3/uL (4.0-11.0) Red Blood Count 3.47 x10^6/uL (3.50-5.40) 3.63 x10^6/uL (3.50-5.40) Hemoglobin 6.8 g/dL (12.0-15.5) 7.3 g/dL (12.0-15.5) Hematocrit 21.6 % (36.0-47.0) 23.6 % (36.0-47.0) Mean Corpuscular Volume 62 fL (79-100) 65 fL (79-100) Mean Corpuscular Hemoglobin 20 pg (25-35) 20 pg (25-35) Mean Corpuscular Hemoglobin Concent 32 g/dL (31-37) 31 g/dL (31-37) Red Cell Distribution Width 17.6 % (11.5-14.5) 19.5 % (11.5-14.5) Platelet Count 174 x10^3/uL (140-400) 167 x10^3/uL (140-400) Neutrophils (%) (Auto) 60 % (31-73) 57 % (31-73) Lymphocytes (%) (Auto) 24 % (24-48) 32 % (24-48) Monocytes (%) (Auto) 5 % (0-9) 7 % (0-9) Eosinophils (%) (Auto) 9 % (0-3) 2 % (0-3) Basophils (%) (Auto) 2 % (0-3) 1 % (0-3) Neutrophils # (Auto) 3.5 x10^3/uL (1.8-7.7) 3.2 x10^3/uL (1.8-7.7) Lymphocytes # (Auto) 1.4 x10^3/uL (1.0-4.8) 1.8 x10^3/uL (1.0-4.8) Monocytes # (Auto) 0.3 x10^3/uL (0.0-1.1) 0.4 x10^3/uL (0.0-1.1) Eosinophils # (Auto) 0.5 x10^3/uL (0.0-0.7) 0.1 x10^3/uL (0.0-0.7) Basophils # (Auto) 0.1 x10^3/uL (0.0-0.2) 0.1 x10^3/uL (0.0-0.2) Sodium Level 142 mmol/L (136-145) 143 mmol/L (136-145) Potassium Level 3.8 mmol/L (3.5-5.1) 3.9 mmol/L (3.5-5.1) Chloride Level 108 mmol/L (98-107) 108 mmol/L (98-107) Carbon Dioxide Level 26 mmol/L (21-32) 27 mmol/L (21-32) Anion Gap 8 (6-14) 8 (6-14) Blood Urea Nitrogen 18 mg/dL (7-20) 18 mg/dL (7-20) Creatinine 1.4 mg/dL (0.6-1.0) 1.2 mg/dL (0.6-1.0) Estimated GFR (Cockcroft-Gault) 43.1 51.5 Glucose Level 70 mg/dL (70-99) 74 mg/dL (70-99) Calcium Level 8.8 mg/dL (8.5-10.1) 8.8 mg/dL (8.5-10.1) Laboratory Tests Test 03/27/21 04:35 White Blood Count 5.5 x10^3/uL (4.0-11.0) Red Blood Count 3.63 x10^6/uL (3.50-5.40) Hemoglobin 7.3 g/dL (12.0-15.5) Hematocrit 23.6 % (36.0-47.0) Mean Corpuscular Volume 65 fL (79-100) Mean Corpuscular Hemoglobin 20 pg (25-35) Mean Corpuscular Hemoglobin Concent 31 g/dL (31-37) Red Cell Distribution Width 19.5 % (11.5-14.5) Platelet Count 167 x10^3/uL (140-400) Neutrophils (%) (Auto) 57 % (31-73) Lymphocytes (%) (Auto) 32 % (24-48) Monocytes (%) (Auto) 7 % (0-9) Eosinophils (%) (Auto) 2 % (0-3) Basophils (%) (Auto) 1 % (0-3) Neutrophils # (Auto) 3.2 x10^3/uL (1.8-7.7) Lymphocytes # (Auto) 1.8 x10^3/uL (1.0-4.8) Monocytes # (Auto) 0.4 x10^3/uL (0.0-1.1) Eosinophils # (Auto) 0.1 x10^3/uL (0.0-0.7) Basophils # (Auto) 0.1 x10^3/uL (0.0-0.2) Sodium Level 143 mmol/L (136-145) Potassium Level 3.9 mmol/L (3.5-5.1) Chloride Level 108 mmol/L (98-107) Carbon Dioxide Level 27 mmol/L (21-32) Anion Gap 8 (6-14) Blood Urea Nitrogen 18 mg/dL (7-20) Creatinine 1.2 mg/dL (0.6-1.0) Estimated GFR (Cockcroft-Gault) 51.5 Glucose Level 74 mg/dL (70-99) Calcium Level 8.8 mg/dL (8.5-10.1) Microbiology 03/20/21 Gram Stain - Final, Complete 03/20/21 Aerobic and Anaerobic Culture - Final, Complete 03/14/21 Blood Culture - Final, Complete NO GROWTH AFTER 5 DAYS Medications Current Medications Vancomycin HCl 1.5 gm/Sodium Chloride 500 ml @ 250 mls/hr 1X ONCE IV ; Start 03/14/21 at 11:45; Stop 03/14/21 at 11:35; Status DC Ceftriaxone Sodium (Rocephin) 1 gm 1X ONCE IVP Last administered on 03/14/21at 11:30; Start 03/14/21 at 11:45; Stop 03/14/21 at 11:35; Status DC Piperacillin Sod/ Tazobactam Sod 4.5 gm/Sodium Chloride 100 ml @ 200 mls/hr 1X ONCE IV Last administered on 03/14/21at 11:52; Start 03/14/21 at 12:00; Stop 03/14/21 at 12:29; Status DC Linezolid/Dextrose 300 ml @ 300 mls/hr Q12HR IV Last administered on 03/23/21at 09:23; Start 03/14/21 at 13:00; Stop 03/23/21 at 11:35; Status DC Piperacillin Sod/ Tazobactam Sod 3.375 gm/Sodium Chloride 50 ml @ 100 mls/hr Q6HRS IV Last administered on 03/15/21at 05:06; Start 03/14/21 at 18:00; Stop 03/15/21 at 09:35; Status DC Acetaminophen (Tylenol) 650 mg PRN Q6HRS PRN PO MILD PAIN / TEMP > 100.3'F Last administered on 03/25/21at 03:44; Start 03/14/21 at 16:00 Carbidopa/Levodopa (Sinemet Cr) 2 tab.sa TID PO Last administered on 03/26/21at 20:49; Start 03/14/21 at 14:00 Apixaban (Eliquis) 2.5 mg BID PO Last administered on 03/19/21at 08:38; Start 03/14/21 at 21:00; Stop 03/19/21 at 15:19; Status DC Ferrous Sulfate (Feosol) 325 mg DAILYWBKFT PO Last administered on 03/25/21at 08:39; Start 03/15/21 at 08:00 Furosemide (Lasix) 20 mg DAILY PO Last administered on 03/25/21at 08:39; Start 03/15/21 at 09:00 Vitamin D (Vitamin D3) 1,000 unit DAILY PO Last administered on 03/25/21at 08:39; Start 03/15/21 at 09:00 Pramipexole Dihydrochloride (miraPEX) 0.5 mg [id number] PO Last administered on 03/26/21at 20:49; Start 03/14/21 at 16:30 Magnesium Hydroxide (Milk Of Magnesia) 2,400 mg PRN DAILY PRN PO CONSTIPATION; Start 03/14/21 at 16:00 Piperacillin Sod/ Tazobactam Sod (Zosyn Per Pharmacy) 1 each PRN DAILY PRN MC SEE COMMENTS; Start 03/14/21 at 16:15 Piperacillin Sod/ Tazobactam Sod 2.25 gm/Sodium Chloride 50 ml @ 100 mls/hr Q6HRS IV Last administered on 03/27/21at 05:44; Start 03/15/21 at 12:00 Lactobacillus Rhamnosus (Culturelle) 1 cap BID PO Last administered on 03/26/21at 20:49; Start 03/16/21 at 21:00 Gadoterate Meglumine (Clariscan) 15 ml 1X ONCE IVP Last administered on 03/17/21at 09:25; Start 03/17/21 at 09:30; Stop 03/17/21 at 09:31; Status DC Amlodipine Besylate (Norvasc) 2.5 mg DAILY PO Last administered on 03/23/21at 09:23; Start 03/17/21 at 11:00; Stop 03/23/21 at 11:36; Status DC Fentanyl Citrate (Fentanyl 2ml Vial) 25 mcg PRN Q5MIN PRN IVP MILD PAIN 1-3; Start 03/20/21 at 06:00; Stop 03/21/21 at 05:59; Status DC Fentanyl Citrate (Fentanyl 2ml Vial) 50 mcg PRN Q5MIN PRN IVP MODERATE PAIN 4-6 Last administered on 03/20/21at 08:26; Start 03/20/21 at 06:00; Stop 03/21/21 at 05:59; Status DC Morphine Sulfate (Morphine Sulfate) 1 mg PRN Q10MIN PRN IVP SEVERE PAIN 7-10; Start 03/20/21 at 06:00; Stop 03/21/21 at 05:59; Status DC Ringer's Solution 1,000 ml @ 30 mls/hr Q24H IV Last administered on 03/20/21at 07:00; Start 03/20/21 at 06:00; Stop 03/20/21 at 17:59; Status DC Hydromorphone HCl (Dilaudid) 0.5 mg PRN Q10MIN PRN IVP SEVERE PAIN 7-10, 2nd CHOICE; Start 03/20/21 at 06:00; Stop 03/21/21 at 05:59; Status DC Prochlorperazine Edisylate (Compazine) 5 mg PACU PRN PRN IVP NAUSEA, MRX1; Start 03/20/21 at 06:00; Stop 03/21/21 at 05:59; Status DC Propofol (Diprivan) 200 mg STK-MED ONCE IV ; Start 03/20/21 at 07:01; Stop 03/20/21 at 07:01; Status DC Propofol (Diprivan) 200 mg STK-MED ONCE IV ; Start 03/20/21 at 07:01; Stop 03/20/21 at 07:01; Status DC Fentanyl Citrate (Fentanyl 2ml Vial) 100 mcg STK-MED ONCE .ROUTE ; Start 03/20/21 at 07:02; Stop 03/20/21 at 07:02; Status DC Dexamethasone Sodium Phosphate (Decadron) 4 mg STK-MED ONCE .ROUTE ; Start 03/20/21 at 07:02; Stop 03/20/21 at 07:02; Status DC Ondansetron HCl (Zofran) 4 mg STK-MED ONCE .ROUTE ; Start 03/20/21 at 07:03; Stop 03/20/21 at 07:04; Status DC Lidocaine HCl (Lidocaine Pf 2% Vial) 5 ml STK-MED ONCE .ROUTE ; Start 03/20/21 at 07:03; Stop 03/20/21 at 07:04; Status DC Fentanyl Citrate (Fentanyl 2ml Vial) 100 mcg STK-MED ONCE .ROUTE ; Start 03/20/21 at 07:58; Stop 03/20/21 at 07:58; Status DC Oxycodone/ Acetaminophen (Percocet 5/325) 1 tab 1X ONCE PO Last administered on 03/20/21at 10:25; Start 03/20/21 at 08:15; Stop 03/20/21 at 08:21; Status DC Apixaban (Eliquis) 5 mg BID PO Last administered on 03/26/21at 20:49; Start 03/21/21 at 09:00 Amlodipine Besylate (Norvasc) 5 mg DAILY PO Last administered on 03/25/21at 08:39; Start 03/24/21 at 09:00 Amlodipine Besylate (Norvasc) 2.5 mg ONCE ONCE PO Last administered on 03/23/21at 13:40; Start 03/23/21 at 12:00; Stop 03/23/21 at 12:09; Status DC Info (Anti-Coagulation Monitoring By Pharmacy) 1 each PRN DAILY PRN MC PER PROTOCOL Last administered on 03/25/21at 11:38; Start 03/25/21 at 11:45 Fentanyl Citrate (Fentanyl 2ml Vial) 25 mcg PRN Q5MIN PRN IVP MILD PAIN 1-3; Start 03/26/21 at 06:00; Stop 03/26/21 at 09:19; Status DC Fentanyl Citrate (Fentanyl 2ml Vial) 50 mcg PRN Q5MIN PRN IVP MODERATE PAIN 4- 6; Start 03/26/21 at 06:00; Stop 03/26/21 at 09:19; Status DC Morphine Sulfate (Morphine Sulfate) 1 mg PRN Q10MIN PRN IVP SEVERE PAIN 7-10; Start 03/26/21 at 06:00; Stop 03/26/21 at 09:19; Status DC Ringer's Solution 1,000 ml @ 30 mls/hr Q24H IV Last administered on 03/26/21at 07:08; Start 03/26/21 at 06:00; Stop 03/26/21 at 09:19; Status DC Hydromorphone HCl (Dilaudid) 0.5 mg PRN Q10MIN PRN IVP SEVERE PAIN 7-10, 2nd CHOICE; Start 03/26/21 at 06:00; Stop 03/26/21 at 09:19; Status DC Prochlorperazine Edisylate (Compazine) 5 mg PACU PRN PRN IVP NAUSEA, MRX1; Start 03/26/21 at 06:00; Stop 03/27/21 at 05:59; Status DC Bupivacaine HCl (Sensorcaine Mpf 0.5%) 30 ml STK-MED ONCE IJ Last administered on 03/26/21at 08:12; Start 03/26/21 at 08:12; Stop 03/26/21 at 08:18; Status DC Acetaminophen (Tylenol) 650 mg 1X ONCE PO ; Start 03/26/21 at 09:15; Stop 03/26/21 at 09:19; Status DC Acetaminophen/ Hydrocodone Bitart (Lortab 5/325) 1 tab PRN Q6HRS PRN PO MODERATE TO SEVERE PAIN Last administered on 03/26/21at 12:21; Start 03/26/21 at 09:15 Active Scripts Active Furosemide 20 Mg Tablet 20 Mg PO DAILY Eliquis (Apixaban) 5 Mg Tablet 5 Mg PO BID [Fluconazole] 100 MG Tablet 100 Mg PO DAILY 5 Days Zyvox (Linezolid) 600 Mg Tablet 600 Mg PO BID 5 Days Zosyn 2.25 Gm Pre-Mix Bag (Jbqrozhdijsq-Vvsx-Tojibovw,Iso) 2.25 Gm/50 Ml Froz.piggy 2.25 Gm IV Q6HRS 5 Days Hydrocodone-Acetamin 5-325 mg (Hydrocodone/Acetaminophen) 1 Each Tablet 1 Each PO Q6HRS PRN Culturelle (Lactobacillus Rhamnosus Gg) 1 Each Cap.sprink 1 Cap PO BID 10 Days Acetaminophen 500 Mg Tablet 500 Mg PO PRN Q4HRS PRN Reported Mirapex (Pramipexole Di-Hcl) 0.25 Mg Tablet 0.5 Mg PO TID Vitamin D3 (Cholecalciferol (Vitamin D3)) 1,000 Unit Tablet 1,000 Unit PO DAILY Sinemet Cr 50-200 Tablet (Carbidopa/Levodopa) 1 Each Tablet.er 1 Tab PO TID Vitals/I & O Vital Sign - Last 24 Hours 03/26/21 03/26/21 03/26/21 03/26/21 09:10 09:10 09:26 09:41 Temp 98.4 98.4 Pulse 72 68 68 Resp 14 15 17 B/P (MAP) 150/71 133/60 132/58 Pulse Ox 100 100 100 O2 Delivery Mask Simple Mask Simple Mask Nasal Cannula O2 Flow Rate 10 10 10 2 03/26/21 03/26/21 03/26/21 03/26/21 11:00 12:08 12:21 12:30 Temp 98.6 98.6 98.6 98.6 98.6 98.6 Pulse 74 95 82 Resp 16 16 16 B/P (MAP) 148/72 (97) 148/72 102/48 Pulse Ox 95 O2 Delivery Room Air Room Air 03/26/21 03/26/21 03/26/21 03/26/21 13:22 13:30 14:30 15:00 Temp 98.6 98.1 98.1 98.6 98.1 98.1 Pulse 74 69 69 Resp 16 18 18 B/P (MAP) 128/56 151/70 151/70 (97) Pulse Ox 97 O2 Delivery Room Air Room Air 03/26/21 03/26/21 03/26/21 03/26/21 15:30 17:00 19:00 19:40 Temp 97.6 97.5 98.6 97.6 97.5 98.6 Pulse 67 79 80 Resp 20 16 20 B/P (MAP) 146/68 151/68 145/72 (96) Pulse Ox 96 O2 Delivery Room Air Room Air 03/26/21 03/27/21 03/27/21 23:02 02:58 07:00 Temp 97.9 98.0 98.8 97.9 98.0 98.8 Pulse 72 85 68 Resp 18 18 18 B/P (MAP) 143/71 (95) 151/80 (103) 137/64 (88) Pulse Ox 96 96 96 O2 Delivery Room Air Room Air Room Air Intake and Output 03/26/21 03/26/21 03/27/21 15:00 23:00 07:00 Intake Total 450 ml Output Total 10 ml Balance 440 ml Justifications for Admission Other Justification Nutrition Consultation Dietary Evaluation: Recommendations by RD: Dietary education by RD, Increase Calorie Intake, Protein supplementation Comments: regular ensure enlive bid REC mvi and vit c per wound protocal Expected Outcomes/Goals: to meet >75% est nutr needs improved wound status Interpretation of weight loss: >7.5% in 3 months Malnutrition Findings: Food and Nutrition Intake (Mod: <75% est energy req 7days Weight Status: Overweight HEATHER KOCH DPM Mar 27, 2021 08:22
[2021-03-27] MEDS: CHOLECALCIFEROL (VITAMIN D3) 1,000 UNIT TABLET PO SCH (08:46)
[2021-03-27] MEDS: CARBIDOPA/LEVODOPA CR 25/100MG TABLET.SA. PO SCH ×3 (08:46→21:12)
[2021-03-27] MEDS: FUROSEMIDE 20 MG TABLET PO SCH (08:47)
[2021-03-27] MEDS: APIXABAN 5 MG TABLET. PO SCH ×2 (08:47→21:12)
[2021-03-27] MEDS: FERROUS SULFATE 325 MG TABLET. PO SCH (08:47)
[2021-03-27] MEDS: LACTOBACILLUS RHAMNOSUS GG 1 CAPSULE. PO SCH ×2 (08:47→21:11)
[2021-03-27] MEDS: PRAMIPEXOLE 0.25 MG TABLET. PO SCH ×3 (08:47→21:11)
--- NOTE | 2021-03-27 09:04 | PDOC ---
Infectious Disease Note Subjective: Subjective Patient without complaints. s/p surgery 03/26 Vital Signs: Vital Signs Vital Signs Date Time Temp Pulse Resp B/P (MAP) Pulse Ox O2 Delivery O2 Flow Rate FiO2 03/27/21 08:48 68 137/64 03/27/21 07:00 98.8 18 96 Room Air 98.8 03/26/21 09:41 2 Physical Exam: PHYSICAL EXAM GENERAL: Alert awake female sitting at the edge of the bed in no acute distress HEENT: Normocephalic, atraumatic. Anicteric. Oral mucosa moist. NECK: Supple. LUNGS: Clear bilaterally. HEART: S1, S2. ABDOMEN: Soft, nontender, bowel sounds present. EXTREMITIES: Right lower extremity has edema, 1-2+ edema of the left lower extremity. There is 2 open wound lateral aspect of foot, seen with Dr. Jin appears clean, no purulence, healthy granulation tissue DERMATOLOGIC: Warm, dry, no generalized rash except for above. NEUROLOGIC: Alert, oriented x 3, grossly nonfocal. PSYCHIATRIC: Calm and cooperative.. Medications: Inpatient Meds: Medications reviewed. Labs: Lab Laboratory Tests Test 03/27/21 04:35 White Blood Count 5.5 x10^3/uL (4.0-11.0) Red Blood Count 3.63 x10^6/uL (3.50-5.40) Hemoglobin 7.3 g/dL (12.0-15.5) Hematocrit 23.6 % (36.0-47.0) Mean Corpuscular Volume 65 fL (79-100) Mean Corpuscular Hemoglobin 20 pg (25-35) Mean Corpuscular Hemoglobin Concent 31 g/dL (31-37) Red Cell Distribution Width 19.5 % (11.5-14.5) Platelet Count 167 x10^3/uL (140-400) Neutrophils (%) (Auto) 57 % (31-73) Lymphocytes (%) (Auto) 32 % (24-48) Monocytes (%) (Auto) 7 % (0-9) Eosinophils (%) (Auto) 2 % (0-3) Basophils (%) (Auto) 1 % (0-3) Neutrophils # (Auto) 3.2 x10^3/uL (1.8-7.7) Lymphocytes # (Auto) 1.8 x10^3/uL (1.0-4.8) Monocytes # (Auto) 0.4 x10^3/uL (0.0-1.1) Eosinophils # (Auto) 0.1 x10^3/uL (0.0-0.7) Basophils # (Auto) 0.1 x10^3/uL (0.0-0.2) Sodium Level 143 mmol/L (136-145) Potassium Level 3.9 mmol/L (3.5-5.1) Chloride Level 108 mmol/L (98-107) Carbon Dioxide Level 27 mmol/L (21-32) Anion Gap 8 (6-14) Blood Urea Nitrogen 18 mg/dL (7-20) Creatinine 1.2 mg/dL (0.6-1.0) Estimated GFR (Cockcroft-Gault) 51.5 Glucose Level 74 mg/dL (70-99) Calcium Level 8.8 mg/dL (8.5-10.1) Micro RUN DATE: 03/17/21 [facility] *LIVE* PAGE 1 RUN TIME: 826 Specimen Inquiry PATIENT: JACKIE GROVES ACCT: [id number] LOC: [address] [place] [address] U: [id number] AGE/SX: 86/F ROOM: 408 RE03/14/[address]: ELI ROSALES MD : [id number] BED: 1 DIS: STATUS: ADM IN TLOC: -------- ---- SPEC #: [id number] JASMIN: 03/14/21 STATUS: RES REQ #: [id number] RECD: 03/14/21 [facility] [address]: ELI ROSALES MD SOURCE: LEG ENTR: 03/14/21 [facility] DR: EZRA RUIZ MD SPDESC: WOUND ELI ALCANTAR,STACEY Garcia MD ORDERED: BAM/AEREKATERINA/JESSA COMMENTS: LEFT LOWER LEG WOUND Procedure Result GRAM STAIN Final Final GRAM NEGATIVE RODS:FEW GRAM POSITIVE COCCI:RARE SQUAMOUS EPI CELL:NONE SEEN PMN (WBCs):MODERATE Unless otherwise specified, Testing Performed by: [address] [id number] For Inquires, the Physician may contact the Microbiology department at [phone] ANAEROBIC-AEROBIC CULTURE Preliminary Preliminary MIXED AEROBIC AND ANAEROBIC TUCKER on 03/16/21 at 1359 INCLUDING: MANY [PROTEUS MIRABILIS] MANY [ENTEROCOCCUS FAECALIS] MANY [PORPHYROMONAS SOMERAE] PROTEUS MIRABILIS ENTEROCOCCUS FAECALIS PORPHYROMONAS EDOUARD ANTIMICROBIAL SUSCEPTIBILITY Preliminary Comment Comment NEG ROSA 56 PROTEUS MIRABILIS ANTIBIOTIC RESULT INTERPRETATION AMPICILLIN/SULBACTAM <=4/2 S AMIKACIN <=16 S AMPICILLIN <=8 S AMOXICILLIN/K CLAVULANATE <=8/4 S AZTREONAM <=4 S CEFTRIAXONE <=1 S CEFTAZIDIME <=1 S CEFOTAXIME <=2 S RUN DATE: 03/17/21 [facility] *LIVE* PAGE 2 RUN TIME: 826 Specimen Inquiry SPEC: [id number] PATIENT: GERMAINJACKIE [id number] (Continued) Procedure Result --------- --- CONTINUED ON NEXT PAGE RUN DATE: 03/17/21 [facility] *LIVE* PAGE 3 RUN TIME: 0827 Specimen Inquiry SPEC: [id number] PATIENT: GERMAINJACKIE M [id number] (Continued) Procedure Result ANTIMICROBIAL SUSCEPTIBILITY Preliminary (continued) CEFOXITIN <=8 S CEFAZOLIN <=2 S CIPROFLOXACIN <=0.25 S CEFEPIME <=2 S CEFUROXIME <=4 S CEFTAZIDIME/AVIBACTAM <=4 S ERTAPENEM <=0.5 S GENTAMICIN <=2 S LEVOFLOXACIN <=0.5 S MEROPENEM <=1 S PIPERACILLIN/TAZOBACTAM <=8 S TRIMETHOPRIM/SULFAMETHOXAZOLE <=0.5/9.5 S TETRACYCLINE >8 R TOBRAMYCIN <=2 S Streptomycin Synergy Screen S Gentamicin Synergy Screen S POS ROSA TYPE 38 ENTEROCOCCUS FAECALIS ANTIBIOTIC RESULT INTERPRETATION AMPICILLIN <=2 S DAPTOMYCIN 1 S LINEZOLID 2 S PENICILLIN 2 S VANCOMYCIN 1 S Unless otherwise specified, Testing Performed by: [address] [id number] For Inquires, the Physician may contact the Microbiology department at [phone] Objective: Assessment: 1. Chronic nonhealing left lateral leg wound, cellulitis and subcutaneous abscess distal to ulcer, MRI neg for OM. Swab cultures positive for Enterococcus faecalis, Proteus, PORPHYROMONAS SOMERAE Intraoperative cultures negative, could be as patient was on broad-spectrum antibiotics prior to surgery 2. Chronic kidney disease, 3. Parkinson's. 4. History of bilateral DVT. March 20, 2021 status post L leg incision and drainage, wound vac application, posterior splint application No deep fascia, tendon or bone involved Operative cultures are negative Repeat I&D March 26, 2021. Plan: Plan of Care 1. Change Zosyn to Augmentin for 7 days 2 Monitor labs and cultures. 3. Wound care as directed/activity as directed TRAV IBARRA MD Mar 27, 2021 09:04
[2021-03-27 11:00] VITALS: BP 132/67
--- NOTE | 2021-03-27 12:27 | NUR ---
SW following. Discussed with RN, pt can discharge on PO abx. Awaiting COVID result for discharge to [facility]. SW notified [facility] of likely upcoming discharge. SW will continue to follow.
--- NOTE | 2021-03-27 12:53 | PDOC ---
PROGRESS NOTES Date of Service DATE: 03/27/21 TIME: 12:51 Subjective Subjective feels okay. eating lunch Objective Objective Vital Signs Date Time Temp Pulse Resp B/P (MAP) Pulse Ox O2 Delivery O2 Flow Rate FiO2 03/27/21 11:00 98.7 65 16 132/67 (88) 95 Room Air 98.7 03/26/21 09:41 2 Intake and Output 03/27/21 06:59 Intake Total 450 ml Output Total 10 ml Balance 440 ml IV Total 450 ml Estimated Blood Loss 10 ml # Voids 4 Physical Exam Abdomen: Soft Heart: Regular rate, Normal S1, Normal S2 Extremities: No edema General: Alert HEENT: Atraumatic Lungs: Clear to auscultation Neuro: Normal speech Psych/Mental Status: Mental status NL Skin: No rashes, Other (LLE wrapped with wound vac) Assessment Assessment Problems Medical Problems: (1) Osteomyelitis Status: Acute Plan Plan of Care switch to augmentin dismiss to SNF when covid test returns Comment Review of Relevant I have reviewed the following items cathleen (where applicable) has been applied. Labs Laboratory Tests Test 03/26/21 06:15 03/27/21 04:35 White Blood Count 5.8 x10^3/uL (4.0-11.0) 5.5 x10^3/uL (4.0-11.0) Red Blood Count 3.47 x10^6/uL (3.50-5.40) 3.63 x10^6/uL (3.50-5.40) Hemoglobin 6.8 g/dL (12.0-15.5) 7.3 g/dL (12.0-15.5) Hematocrit 21.6 % (36.0-47.0) 23.6 % (36.0-47.0) Mean Corpuscular Volume 62 fL (79-100) 65 fL (79-100) Mean Corpuscular Hemoglobin 20 pg (25-35) 20 pg (25-35) Mean Corpuscular Hemoglobin Concent 32 g/dL (31-37) 31 g/dL (31-37) Red Cell Distribution Width 17.6 % (11.5-14.5) 19.5 % (11.5-14.5) Platelet Count 174 x10^3/uL (140-400) 167 x10^3/uL (140-400) Neutrophils (%) (Auto) 60 % (31-73) 57 % (31-73) Lymphocytes (%) (Auto) 24 % (24-48) 32 % (24-48) Monocytes (%) (Auto) 5 % (0-9) 7 % (0-9) Eosinophils (%) (Auto) 9 % (0-3) 2 % (0-3) Basophils (%) (Auto) 2 % (0-3) 1 % (0-3) Neutrophils # (Auto) 3.5 x10^3/uL (1.8-7.7) 3.2 x10^3/uL (1.8-7.7) Lymphocytes # (Auto) 1.4 x10^3/uL (1.0-4.8) 1.8 x10^3/uL (1.0-4.8) Monocytes # (Auto) 0.3 x10^3/uL (0.0-1.1) 0.4 x10^3/uL (0.0-1.1) Eosinophils # (Auto) 0.5 x10^3/uL (0.0-0.7) 0.1 x10^3/uL (0.0-0.7) Basophils # (Auto) 0.1 x10^3/uL (0.0-0.2) 0.1 x10^3/uL (0.0-0.2) Sodium Level 142 mmol/L (136-145) 143 mmol/L (136-145) Potassium Level 3.8 mmol/L (3.5-5.1) 3.9 mmol/L (3.5-5.1) Chloride Level 108 mmol/L (98-107) 108 mmol/L (98-107) Carbon Dioxide Level 26 mmol/L (21-32) 27 mmol/L (21-32) Anion Gap 8 (6-14) 8 (6-14) Blood Urea Nitrogen 18 mg/dL (7-20) 18 mg/dL (7-20) Creatinine 1.4 mg/dL (0.6-1.0) 1.2 mg/dL (0.6-1.0) Estimated GFR (Cockcroft-Gault) 43.1 51.5 Glucose Level 70 mg/dL (70-99) 74 mg/dL (70-99) Calcium Level 8.8 mg/dL (8.5-10.1) 8.8 mg/dL (8.5-10.1) Laboratory Tests Test 03/27/21 04:35 White Blood Count 5.5 x10^3/uL (4.0-11.0) Red Blood Count 3.63 x10^6/uL (3.50-5.40) Hemoglobin 7.3 g/dL (12.0-15.5) Hematocrit 23.6 % (36.0-47.0) Mean Corpuscular Volume 65 fL (79-100) Mean Corpuscular Hemoglobin 20 pg (25-35) Mean Corpuscular Hemoglobin Concent 31 g/dL (31-37) Red Cell Distribution Width 19.5 % (11.5-14.5) Platelet Count 167 x10^3/uL (140-400) Neutrophils (%) (Auto) 57 % (31-73) Lymphocytes (%) (Auto) 32 % (24-48) Monocytes (%) (Auto) 7 % (0-9) Eosinophils (%) (Auto) 2 % (0-3) Basophils (%) (Auto) 1 % (0-3) Neutrophils # (Auto) 3.2 x10^3/uL (1.8-7.7) Lymphocytes # (Auto) 1.8 x10^3/uL (1.0-4.8) Monocytes # (Auto) 0.4 x10^3/uL (0.0-1.1) Eosinophils # (Auto) 0.1 x10^3/uL (0.0-0.7) Basophils # (Auto) 0.1 x10^3/uL (0.0-0.2) Sodium Level 143 mmol/L (136-145) Potassium Level 3.9 mmol/L (3.5-5.1) Chloride Level 108 mmol/L (98-107) Carbon Dioxide Level 27 mmol/L (21-32) Anion Gap 8 (6-14) Blood Urea Nitrogen 18 mg/dL (7-20) Creatinine 1.2 mg/dL (0.6-1.0) Estimated GFR (Cockcroft-Gault) 51.5 Glucose Level 74 mg/dL (70-99) Calcium Level 8.8 mg/dL (8.5-10.1) Microbiology 03/20/21 Gram Stain - Final, Complete 03/20/21 Aerobic and Anaerobic Culture - Final, Complete 03/14/21 Blood Culture - Final, Complete NO GROWTH AFTER 5 DAYS Medications Current Medications Vancomycin HCl 1.5 gm/Sodium Chloride 500 ml @ 250 mls/hr 1X ONCE IV ; Start 03/14/21 at 11:45; Stop 03/14/21 at 11:35; Status DC Ceftriaxone Sodium (Rocephin) 1 gm 1X ONCE IVP Last administered on 03/14/21at 11:30; Start 03/14/21 at 11:45; Stop 03/14/21 at 11:35; Status DC Piperacillin Sod/ Tazobactam Sod 4.5 gm/Sodium Chloride 100 ml @ 200 mls/hr 1X ONCE IV Last administered on 03/14/21at 11:52; Start 03/14/21 at 12:00; Stop 03/14/21 at 12:29; Status DC Linezolid/Dextrose 300 ml @ 300 mls/hr Q12HR IV Last administered on 03/23/21at 09:23; Start 03/14/21 at 13:00; Stop 03/23/21 at 11:35; Status DC Piperacillin Sod/ Tazobactam Sod 3.375 gm/Sodium Chloride 50 ml @ 100 mls/hr Q6 HRS IV Last administered on 03/15/21at 05:06; Start 03/14/21 at 18:00; Stop 03/15/21 at 09:35; Status DC Acetaminophen (Tylenol) 650 mg PRN Q6HRS PRN PO MILD PAIN / TEMP > 100.3'F Last administered on 03/25/21at 03:44; Start 03/14/21 at 16:00 Carbidopa/Levodopa (Sinemet Cr) 2 tab.sa TID PO Last administered on 03/27/21at 08:46; Start 03/14/21 at 14:00 Apixaban (Eliquis) 2.5 mg BID PO Last administered on 03/19/21at 08:38; Start 03/14/21 at 21:00; Stop 03/19/21 at 15:19; Status DC Ferrous Sulfate (Feosol) 325 mg DAILYWBKFT PO Last administered on 03/27/21 08:47; Start 03/15/21 at 08:00 Furosemide (Lasix) 20 mg DAILY PO Last administered on 03/27/21 08:47; Start 03/15/21 at 09:00 Vitamin D (Vitamin D3) 1,000 unit DAILY PO Last administered on 03/27/21 08:46; Start 03/15/21 at 09:00 Pramipexole Dihydrochloride (miraPEX) 0.5 mg [id number] PO Last administered on 03/27/21 08:47; Start 03/14/21 at 16:30 Magnesium Hydroxide (Milk Of Magnesia) 2,400 mg PRN DAILY PRN PO CONSTIPATION; Start 03/14/21 at 16:00 Piperacillin Sod/ Tazobactam Sod (Zosyn Per Pharmacy) 1 each PRN DAILY PRN MC SEE COMMENTS; Start 03/14/21 at 16:15 Piperacillin Sod/ Tazobactam Sod 2.25 gm/Sodium Chloride 50 ml @ 100 mls/hr Q6HRS IV Last administered on 03/27/21at 05:44; Start 03/15/21 at 12:00; Stop 03/27/21 at 11:13; Status DC Lactobacillus Rhamnosus (Culturelle) 1 cap BID PO Last administered on 03/27/21 08:47; Start 03/16/21 at 21:00 Gadoterate Meglumine (Clariscan) 15 ml 1X ONCE IVP Last administered on 03/17/21at 09:25; Start 03/17/21 at 09:30; Stop 03/17/21 at 09:31; Status DC Amlodipine Besylate (Norvasc) 2.5 mg DAILY PO Last administered on 03/23/21at 09:23; Start 03/17/21 at 11:00; Stop 03/23/21 at 11:36; Status DC Fentanyl Citrate (Fentanyl 2ml Vial) 25 mcg PRN Q5MIN PRN IVP MILD PAIN 1-3; Start 03/20/21 at 06:00; Stop 03/21/21 at 05:59; Status DC Fentanyl Citrate (Fentanyl 2ml Vial) 50 mcg PRN Q5MIN PRN IVP MODERATE PAIN 4-6 Last administered on 03/20/21at 08:26; Start 03/20/21 at 06:00; Stop 03/21/21 at 05:59; Status DC Morphine Sulfate (Morphine Sulfate) 1 mg PRN Q10MIN PRN IVP SEVERE PAIN 7-10; Start 03/20/21 at 06:00; Stop 03/21/21 at 05:59; Status DC Ringer's Solution 1,000 ml @ 30 mls/hr Q24H IV Last administered on 03/20/21at 07:00; Start 03/20/21 at 06:00; Stop 03/20/21 at 17:59; Status DC Hydromorphone HCl (Dilaudid) 0.5 mg PRN Q10MIN PRN IVP SEVERE PAIN 7-10, 2nd CHOICE; Start 03/20/21 at 06:00; Stop 03/21/21 at 05:59; Status DC Prochlorperazine Edisylate (Compazine) 5 mg PACU PRN PRN IVP NAUSEA, MRX1; Start 03/20/21 at 06:00; Stop 03/21/21 at 05:59; Status DC Propofol (Diprivan) 200 mg STK-MED ONCE IV ; Start 03/20/21 at 07:01; Stop 03/20/21 at 07:01; Status DC Propofol (Diprivan) 200 mg STK-MED ONCE IV ; Start 03/20/21 at 07:01; Stop 03/20/21 at 07:01; Status DC Fentanyl Citrate (Fentanyl 2ml Vial) 100 mcg STK-MED ONCE .ROUTE ; Start at 07:02; Stop 03/20/21 at 07:02; Status DC Dexamethasone Sodium Phosphate (Decadron) 4 mg STK-MED ONCE .ROUTE ; Start 03/20/21 at 07:02; Stop 03/20/21 at 07:02; Status DC Ondansetron HCl (Zofran) 4 mg STK-MED ONCE .ROUTE ; Start 03/20/21 at 07:03; Stop 03/20/21 at 07:04; Status DC Lidocaine HCl (Lidocaine Pf 2% Vial) 5 ml STK-MED ONCE .ROUTE ; Start 03/20/21 at 07:03; Stop 03/20/21 at 07:04; Status DC Fentanyl Citrate (Fentanyl 2ml Vial) 100 mcg STK-MED ONCE .ROUTE ; Start 03/20/21 at 07:58; Stop 03/20/21 at 07:58; Status DC Oxycodone/ Acetaminophen (Percocet 5/325) 1 tab 1X ONCE PO Last administered on 03/20/21at 10:25; Start 03/20/21 at 08:15; Stop 03/20/21 at 08:21; Status DC Apixaban (Eliquis) 5 mg BID PO Last administered on 03/27/21at 08:47; Start 03/21/21 at 09:00 Amlodipine Besylate (Norvasc) 5 mg DAILY PO Last administered on 03/27/21at 08:48; Start 03/24/21 at 09:00 Amlodipine Besylate (Norvasc) 2.5 mg ONCE ONCE PO Last administered on 03/23/21at 13:40; Start 03/23/21 at 12:00; Stop 03/23/21 at 12:09; Status DC Info (Anti-Coagulation Monitoring By Pharmacy) 1 each PRN DAILY PRN MC PER PROTOCOL Last administered on 03/25/21at 11:38; Start 03/25/21 at 11:45 Fentanyl Citrate (Fentanyl 2ml Vial) 25 mcg PRN Q5MIN PRN IVP MILD PAIN 1-3; Start 03/26/21 at 06:00; Stop 03/26/21 at 09:19; Status DC Fentanyl Citrate (Fentanyl 2ml Vial) 50 mcg PRN Q5MIN PRN IVP MODERATE PAIN 4- 6; Start 03/26/21 at 06:00; Stop 03/26/21 at 09:19; Status DC Morphine Sulfate (Morphine Sulfate) 1 mg PRN Q10MIN PRN IVP SEVERE PAIN 7-10; Start 03/26/21 at 06:00; Stop 03/26/21 at 09:19; Status DC Ringer's Solution 1,000 ml @ 30 mls/hr Q24H IV Last administered on 03/26/21at 07:08; Start 03/26/21 at 06:00; Stop 03/26/21 at 09:19; Status DC Hydromorphone HCl (Dilaudid) 0.5 mg PRN Q10MIN PRN IVP SEVERE PAIN 7-10, 2nd CHOICE; Start 03/26/21 at 06:00; Stop 03/26/21 at 09:19; Status DC Prochlorperazine Edisylate (Compazine) 5 mg PACU PRN PRN IVP NAUSEA, MRX1; Start 03/26/21 at 06:00; Stop 03/27/21 at 05:59; Status DC Bupivacaine HCl (Sensorcaine Mpf 0.5%) 30 ml STK-MED ONCE IJ Last administered on 03/26/21at 08:12; Start 03/26/21 at 08:12; Stop 03/26/21 at 08:18; Status DC Acetaminophen (Tylenol) 650 mg 1X ONCE PO ; Start 03/26/21 at 09:15; Stop 03/26 at 09:19; Status DC Acetaminophen/ Hydrocodone Bitart (Lortab 5/325) 1 tab PRN Q6HRS PRN PO MODERATE TO SEVERE PAIN Last administered on 03/26/21at 12:21; Start 03/26/21 at 09:15 Amoxicillin/ Clavulanate Potassium (Augmentin 875/ 125mg) 1 tab BID PO ; Start 03/27/21 at 21:00 Active Scripts Active Furosemide 20 Mg Tablet 20 Mg PO DAILY Eliquis (Apixaban) 5 Mg Tablet 5 Mg PO BID [Fluconazole] 100 MG Tablet 100 Mg PO DAILY 5 Days Zyvox (Linezolid) 600 Mg Tablet 600 Mg PO BID 5 Days Zosyn 2.25 Gm Pre-Mix Bag (Fzgikcskfdtn-Hlrp-Atpnkqwg,Iso) 2.25 Gm/50 Ml Froz.piggy 2.25 Gm IV Q6HRS 5 Days Hydrocodone-Acetamin 5-325 mg (Hydrocodone/Acetaminophen) 1 Each Tablet 1 Each PO Q6HRS PRN Culturelle (Lactobacillus Rhamnosus Gg) 1 Each Cap.sprink 1 Cap PO BID 10 Days Acetaminophen 500 Mg Tablet 500 Mg PO PRN Q4HRS PRN Reported Mirapex (Pramipexole Di-Hcl) 0.25 Mg Tablet 0.5 Mg PO TID Vitamin D3 (Cholecalciferol (Vitamin D3)) 1,000 Unit Tablet 1,000 Unit PO DAILY Sinemet Cr 50-200 Tablet (Carbidopa/Levodopa) 1 Each Tablet.er 1 Tab PO TID Vitals/I & O Vital Sign - Last 24 Hours 03/26/21 03/26/21 03/26/21 03/26/21 13:22 13:30 14:30 15:00 Temp 98.6 98.1 98.1 98.6 98.1 98.1 Pulse 74 69 69 Resp 16 18 18 B/P (MAP) 128/56 151/70 151/70 (97) Pulse Ox 97 O2 Delivery Room Air Room Air 03/26/21 03/26/21 03/26/21 03/26/21 15:30 17:00 19:00 19:40 Temp 97.6 97.5 98.6 97.6 97.5 98.6 Pulse 67 79 80 Resp 20 16 20 B/P (MAP) 146/68 151/68 145/72 (96) Pulse Ox 96 O2 Delivery Room Air Room Air 03/26/21 03/27/21 03/27/21 03/27/21 23:02 02:58 07:00 08:00 Temp 97.9 98.0 98.8 97.9 98.0 98.8 Pulse 72 85 68 Resp 18 18 18 B/P (MAP) 143/71 (95) 151/80 (103) 137/64 (88) Pulse Ox 96 96 96 O2 Delivery Room Air Room Air Room Air Room Air 03/27/21 03/27/21 08:48 11:00 Temp 98.7 98.7 Pulse 68 65 Resp 16 B/P (MAP) 137/64 132/67 (88) Pulse Ox 95 O2 Delivery Room Air Intake and Output 03/26/21 03/26/21 03/27/21 14:59 22:59 06:59 Intake Total 450 ml Output Total 10 ml Balance 440 ml Justifications for Admission Other Justification Nutrition Consultation Dietary Evaluation: Recommendations by RD: Dietary education by RD, Increase Calorie Intake, Protein supplementation Comments: regular ensure enlive bid REC mvi and vit c per wound protocal Expected Outcomes/Goals: to meet >75% est nutr needs improved wound status Interpretation of weight loss: >7.5% in 3 months Malnutrition Findings: Food and Nutrition Intake (Mod: <75% est energy req 7days Weight Status: Overweight ELI ROSALES MD Mar 27, 2021 12:53
[2021-03-27] MEDS ORDERED: AMOX1TAB11 PO (12:58)
[2021-03-27] MEDS ORDERED: AMLO-186 PO (12:58)
[2021-03-27] MEDS ORDERED: FERR325T72 PO (12:58)
--- NOTE | 2021-03-27 13:01 | SNU/HH DC ---
DISCHARGE ORDERS DISCHARGE INFORMATION: DISCHARGE DATE: Mar 27, 2021 FINAL DIAGNOSIS Problemsinfected left leg wound with secondary closure. parkinsons disease. Medical Problems: (1) Status: Acute CONDITION ON DISCHARGE: Stable CODE STATUS: Code Status: Full HALFWAY: SNF STAY <30 DAYS: Yes POST DISCHARGE ORDERS: ACTIVITY ORDERS: Resume previous activity, Activity as tolerated WEIGHT BEARING STATUS: As tolerated DIET AFTER DISCHARGE: Regular WOUND/INCISION CARE: No wound care needed CHECKS AFTER DISCHARGE: CHECKS AFTER DISCHARGE: Check blood press - daily, Check your Temp as needed FOLLOW-UP: PHYSICIAN FOLLOW-UP: dr. rosales after dismissed from SNF ADDITIONAL FOLLOW-UP: schedule appt with dr Jin retort load expediter to be seen in 1 week in his office Additional Instructions: do not remove the leg dressing or leg wrap or wound vac as patient will be seen by dr. Jin in office in 1 week. TREATMENT/EQUIPMENT ORDERS: ADAPTIVE EQUIPMENT NEEDED: None Physical Therapy For: Evalulation/Treatment Occupational Therapy For: Evaluation/Treatment DISCHARGE MEDICATIONS: Home Meds Active Scripts Amlodipine Besylate (AMLODIPINE BESYLATE) 5 Mg Tablet, 5 MG PO DAILY for HTN, #30 TAB Prov:ELI ROSALES MD 03/27/21 Ferrous Sulfate (FEOSOL) 325 Mg Tablet, 325 MG PO DAILYWBKFT for anemia, #30 TAB Prov:ELI ROSALES MD 03/27/21 Amoxicillin/Potassium Clav (AMOX TR-K CLV 875-125 MG TAB) 1 Each Tablet, 1 TAB PO BID for wound infection for 7 Days, #14 TAB Prov:ELI ROSALES MD 03/27/21 Furosemide (FUROSEMIDE) 20 Mg Tablet, 20 MG PO DAILY for leg edema, #30 TAB Prov:ELI ROSALES MD 08/06/20 Apixaban (ELIQUIS) 5 Mg Tablet, 5 MG PO BID for DVT both legs, #60 TAB Prov:ELI ROSALES MD 08/06/20 Lactobacillus Rhamnosus Gg (CULTURELLE) 1 Each Cap.sprink, 1 CAP PO BID for probiotic for 10 Days, #20 CAP Prov:ELI ROSALES MD 01/05/20 Acetaminophen (ACETAMINOPHEN) 500 Mg Tablet, 500 MG PO PRN Q4HRS PRN for MILD PAIN / TEMP > 100.3'F, #20 TAB Prov:ELI ROSALES MD 01/05/20 Reported Medications Pramipexole Di-Hcl (MIRAPEX) 0.25 Mg Tablet, 0.5 MG PO TID for Parkinsons, TAB 01/01/20 Cholecalciferol (Vitamin D3) (VITAMIN D3) 1,000 Unit Tablet, 1000 UNIT PO DAILY, TAB 11/30/17 Carbidopa/Levodopa (SINEMET CR 50-200 TABLET) 1 Each Tablet.er, 1 TAB PO TID, TAB 09/16/15 Discontinued Scripts [Fluconazole] 100 MG TABLET No Conflict Check, 100 MG PO DAILY for yeast in foot for 5 Days, #5 TAB Prov:ELI ROSALES MD 08/06/20 Linezolid (ZYVOX) 600 Mg Tablet, 600 MG PO BID for cellulitis for 5 Days, #10 TAB Prov:ELI ROSALES MD 08/06/20 Kgqhjvaefctw-Ymwj-Ficpcmbr,Iso (ZOSYN 2.25 GM PRE-MIX BAG) 2.25 Gm/50 Ml Froz.pi ggy, 2.25 GM IV Q6HRS for celluliits for 5 Days, EACH Prov:ELI ROSALES MD 08/06/20 Hydrocodone/Acetaminophen (Hydrocodone-Acetamin 5-325 mg) 1 Each Tablet, 1 EACH PO Q6HRS PRN for PAIN, #12 TAB Prov:MARGARETTE ESCALANTE DO 07/28/20 ELI ROSALES MD Mar 27, 2021 13:01
--- NOTE | 2021-03-27 13:08 | PDOC ---
Provider Note Date of Service: DATE: 03/27/21 TIME: 13:07 Provider Note discharge summary dictated # [id number] Justifications for Admission Other Justification ELI ROSALES MD Mar 27, 2021 13:08
--- NOTE | 2021-03-27 14:52 | DS ---
DATE OF DISCHARGE: 03/27/2021 LOCATION: She is in room 408. CONSULTANTS: Linda Taylor MD; Nickolas Jin DPM and a vascular surgeon. PROCEDURES: She had an incision and drainage of the left leg wound, delayed wound closure, pinch skin graft application with a wound VAC. The previous surgery prior to that, she had incision and drainage with a wound VAC application and a posterior splint application to the left leg wound. FINAL DIAGNOSES: 1. Infected left lower extremity wound. 2. Chronic kidney disease stage 3. 3. Chronic venous insufficiency of the leg. 4. Parkinson's disease. 5. Anemia of chronic disease. 6. 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 7. Hypertension. HOSPITAL COURSE: The patient is an 86-year-old -[place] female with a history of chronic left leg wound; chronic kidney disease stage 3; chronic venous insufficiency of the legs; Parkinson's disease; anemia of chronic disease; history of bilateral deep vein thrombosis of the legs, on chronic Eliquis who [facility] in [facility] and had an x-ray of the left fibula and it was suspicious for osteomyelitis of the fibula below the wound. The patient was admitted to [facility] through Emergency Room on 03/14/2021, underwent an MRI of the left lower extremity. There was no evidence of osteomyelitis, seen in consultation by Dr. Linda Taylor, for Infectious Disease, and Dr. Jin for Podiatry. She underwent incision and drainage of the wound. Cultures grew Proteus, Enterococcus and then she had a secondary wound closure with a skin graft and a wound VAC applied. The patient was treated with IV Zyvox and Zosyn and Zyvox was discontinued, the Zosyn eventually was discontinued today and she was switched to Augmentin for a 7-day course of treatment. She did receive physical and occupational therapy. She will be dismissed to a assisted facility today on Sinemet 50/200 mg 1 tablet t.i.d., Eliquis 5 mg b.i.d., ferrous sulfate 325 mg every day, furosemide 20 mg every day, Mirapex 0.5 mg t.i.d., vitamin D 1000 units every day and Augmentin 875 mg 1 b.i.d. for 7 days. LABORATORY TESTS: White count 5.5, hemoglobin 7.3 today, potassium 3.9, BUN 18, creatinine 1.2, estimated GFR 51. Blood sugar was 74. DISCHARGE INSTRUCTIONS: She will be dismissed to a assisted facility today for physical and occupational therapy and wound care. However, the wound will be left alone until Dr. Jin sees the patient in 1 week as an outpatient, so we will continue with the wound VAC, which will not be changed until he sees her as well as the leg wrap and also the dressing. Those will be unchanged until Dr. Jin sees her. KRISTEN DR: Casa TID: [id number]
[2021-03-27 15:00] VITALS: BP 141/81
[2021-03-27 19:00] VITALS: BP 140/61
[2021-03-27] MEDS: AMOXICILLIN/K CLAV 875/125MG TABLET. PO SCH (21:11)
[2021-03-27 23:00] VITALS: BP 142/72
[2021-03-28 03:00] VITALS: BP 141/72
[2021-03-28 07:00] VITALS: BP 148/71
[2021-03-28] MEDS: FERROUS SULFATE 325 MG TABLET. PO SCH (07:58)
[2021-03-28] MEDS: PRAMIPEXOLE 0.25 MG TABLET. PO SCH (08:04)
[2021-03-28] MEDS: AMOXICILLIN/K CLAV 875/125MG TABLET. PO SCH (08:04)
[2021-03-28] MEDS: CHOLECALCIFEROL (VITAMIN D3) 1,000 UNIT TABLET PO SCH (08:05)
[2021-03-28] MEDS: LACTOBACILLUS RHAMNOSUS GG 1 CAPSULE. PO SCH (08:05)
[2021-03-28] MEDS: CARBIDOPA/LEVODOPA CR 25/100MG TABLET.SA. PO SCH (08:05)
[2021-03-28] MEDS: APIXABAN 5 MG TABLET. PO SCH (08:05)
[2021-03-28] MEDS: FUROSEMIDE 20 MG TABLET PO SCH (08:06)
--- NOTE | 2021-03-28 08:28 | PDOC ---
PROGRESS NOTES Date of Service DATE: 03/28/21 TIME: 08:25 Subjective Subjective feels well. covid 19 neg. ready for dismissal to snf. Objective Objective Vital Signs Date Time Temp Pulse Resp B/P (MAP) Pulse Ox O2 Delivery O2 Flow Rate FiO2 03/28/21 08:05 80 03/28/21 03:00 97.8 16 141/72 (95) 96 Room Air 97.8 03/26/21 09:41 2 Intake and Output 03/28/21 07:00 Intake Total 100 ml Balance 100 ml Intake Oral 100 ml # Voids 5 Physical Exam Abdomen: Soft Heart: Regular rate, Normal S1, Normal S2 Extremities: No edema, Other (LLE wrapped with wound vac) General: Alert HEENT: Atraumatic Lungs: Clear to auscultation Neuro: Normal speech Psych/Mental Status: Mood NL Skin: No rashes Assessment Assessment ProblemsLeft calf wound which overlies the distal left fibula. wound cultures grew Proteus and enterococcus. MRI neg for osteomyelitis. incision and drainage of wound 03/20/21 3. Chronic kidney disease stage 3. 4. Chronic venous insufficiency of the legs. 5. Parkinson's disease. 6. Anemia of chronic disease. 7. 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 Medical Problems: (1) Osteomyelitis Status: Acute Plan Plan of Care continue wound care office visit with in 1 week continue augmentin continue PT and OT dismiss today SNF Comment Review of Relevant I have reviewed the following items cathleen (where applicable) has been applied. Labs Laboratory Tests Test 03/27/21 04:35 03/27/21 10:55 White Blood Count 5.5 x10^3/uL (4.0-11.0) Red Blood Count 3.63 x10^6/uL (3.50-5.40) Hemoglobin 7.3 g/dL (12.0-15.5) Hematocrit 23.6 % (36.0-47.0) Mean Corpuscular Volume 65 fL (79-100) Mean Corpuscular Hemoglobin 20 pg (25-35) Mean Corpuscular Hemoglobin Concent 31 g/dL (31-37) Red Cell Distribution Width 19.5 % (11.5-14.5) Platelet Count 167 x10^3/uL (140-400) Neutrophils (%) (Auto) 57 % (31-73) Lymphocytes (%) (Auto) 32 % (24-48) Monocytes (%) (Auto) 7 % (0-9) Eosinophils (%) (Auto) 2 % (0-3) Basophils (%) (Auto) 1 % (0-3) Neutrophils # (Auto) 3.2 x10^3/uL (1.8-7.7) Lymphocytes # (Auto) 1.8 x10^3/uL (1.0-4.8) Monocytes # (Auto) 0.4 x10^3/uL (0.0-1.1) Eosinophils # (Auto) 0.1 x10^3/uL (0.0-0.7) Basophils # (Auto) 0.1 x10^3/uL (0.0-0.2) Sodium Level 143 mmol/L (136-145) Potassium Level 3.9 mmol/L (3.5-5.1) Chloride Level 108 mmol/L (98-107) Carbon Dioxide Level 27 mmol/L (21-32) Anion Gap 8 (6-14) Blood Urea Nitrogen 18 mg/dL (7-20) Creatinine 1.2 mg/dL (0.6-1.0) Estimated GFR (Cockcroft-Gault) 51.5 Glucose Level 74 mg/dL (70-99) Calcium Level 8.8 mg/dL (8.5-10.1) Coronavirus (COVID-19)(PCR) Not detected (NOT DETECTD) Laboratory Tests Test 03/27/21 10:55 Coronavirus (COVID-19)(PCR) Not detected (NOT DETECTD) Microbiology 03/20/21 Gram Stain - Final, Complete 03/20/21 Aerobic and Anaerobic Culture - Final, Complete 03/14/21 Blood Culture - Final, Complete NO GROWTH AFTER 5 DAYS Medications Current Medications Vancomycin HCl 1.5 gm/Sodium Chloride 500 ml @ 250 mls/hr 1X ONCE IV ; Start 03/14/21 at 11:45; Stop 03/14/21 at 11:35; Status DC Ceftriaxone Sodium (Rocephin) 1 gm 1X ONCE IVP Last administered on 03/14/21at 11:30; Start 03/14/21 at 11:45; Stop 03/14/21 at 11:35; Status DC Piperacillin Sod/ Tazobactam Sod 4.5 gm/Sodium Chloride 100 ml @ 200 mls/hr 1X ONCE IV Last administered on 03/14/21at 11:52; Start 03/14/21 at 12:00; Stop 03/14/21 at 12:29; Status DC Linezolid/Dextrose 300 ml @ 300 mls/hr Q12HR IV Last administered on 03/23/21at 09:23; Start 03/14/21 at 13:00; Stop 03/23/21 at 11:35; Status DC Piperacillin Sod/ Tazobactam Sod 3.375 gm/Sodium Chloride 50 ml @ 100 mls/hr Q6HRS IV Last administered on 03/15/21at 05:06; Start 03/14/21 at 18:00; Stop 03/15/21 at 09:35; Status DC Acetaminophen (Tylenol) 650 mg PRN Q6HRS PRN PO MILD PAIN / TEMP > 100.3'F Last administered on 03/25/21at 03:44; Start 03/14/21 at 16:00 Carbidopa/Levodopa (Sinemet Cr) 2 tab.sa TID PO Last administered on 03/28/21at 08:05; Start 03/14/21 at 14:00 Apixaban (Eliquis) 2.5 mg BID PO Last administered on 03/19/21at 08:38; Start 03/14/21 at 21:00; Stop 03/19/21 at 15:19; Status DC Ferrous Sulfate (Feosol) 325 mg DAILYWBKFT PO Last administered on 03/28/21at 07:58; Start 03/15/21 at 08:00 Furosemide (Lasix) 20 mg DAILY PO Last administered on 03/28/21at 08:06; Start 03/15/21 at 09:00 Vitamin D (Vitamin D3) 1,000 unit DAILY PO Last administered on 03/28/21 08:05; Start 03/15/21 at 09:00 Pramipexole Dihydrochloride (miraPEX) 0.5 mg [id number] PO Last administered on 03/28/21at 08:04; Start 03/14/21 at 16:30 Magnesium Hydroxide (Milk Of Magnesia) 2,400 mg PRN DAILY PRN PO CONSTIPATION; Start 03/14/21 at 16:00 Piperacillin Sod/ Tazobactam Sod (Zosyn Per Pharmacy) 1 each PRN DAILY PRN MC SEE COMMENTS; Start 03/14/21 at 16:15; Stop 03/27/21 at 12:56; Status DC Piperacillin Sod/ Tazobactam Sod 2.25 gm/Sodium Chloride 50 ml @ 100 mls/hr Q6HRS IV Last administered on 03/27/21at 05:44; Start 03/15/21 at 12:00; Stop 03/27/21 at 11:13; Status DC Lactobacillus Rhamnosus (Culturelle) 1 cap BID PO Last administered on 03/28/21a t 08:05; Start 03/16/21 at 21:00 Gadoterate Meglumine (Clariscan) 15 ml 1X ONCE IVP Last administered on 03/17/21at 09:25; Start 03/17/21 at 09:30; Stop 03/17/21 at 09:31; Status DC Amlodipine Besylate (Norvasc) 2.5 mg DAILY PO Last administered on 03/23/21at 09:23; Start 03/17/21 at 11:00; Stop 03/23/21 at 11:36; Status DC Fentanyl Citrate (Fentanyl 2ml Vial) 25 mcg PRN Q5MIN PRN IVP MILD PAIN 1-3; Start 03/20/21 at 06:00; Stop 03/21/21 at 05:59; Status DC Fentanyl Citrate (Fentanyl 2ml Vial) 50 mcg PRN Q5MIN PRN IVP MODERATE PAIN 4-6 Last administered on 03/20/21at 08:26; Start 03/20/21 at 06:00; Stop 03/21/21 at 05:59; Status DC Morphine Sulfate (Morphine Sulfate) 1 mg PRN Q10MIN PRN IVP SEVERE PAIN 7-10; Start 03/20/21 at 06:00; Stop 03/21/21 at 05:59; Status DC Ringer's Solution 1,000 ml @ 30 mls/hr Q24H IV Last administered on 03/20/21at 07:00; Start 03/20/21 at 06:00; Stop 03/20/21 at 17:59; Status DC Hydromorphone HCl (Dilaudid) 0.5 mg PRN Q10MIN PRN IVP SEVERE PAIN 7-10, 2nd CHOICE; Start 03/20/21 at 06:00; Stop 03/21/21 at 05:59; Status DC Prochlorperazine Edisylate (Compazine) 5 mg PACU PRN PRN IVP NAUSEA, MRX1; Start 03/20/21 at 06:00; Stop 03/21/21 at 05:59; Status DC Propofol (Diprivan) 200 mg STK-MED ONCE IV ; Start 03/20/21 at 07:01; Stop 03/20/21 at 07:01; Status DC Propofol (Diprivan) 200 mg STK-MED ONCE IV ; Start 03/20/21 at 07:01; Stop 03/20/21 at 07:01; Status DC Fentanyl Citrate (Fentanyl 2ml Vial) 100 mcg STK-MED ONCE .ROUTE ; Start 03/20/21 at 07:02; Stop 03/20/21 at 07:02; Status DC Dexamethasone Sodium Phosphate (Decadron) 4 mg STK-MED ONCE .ROUTE ; Start 03/20/21 at 07:02; Stop 03/20/21 at 07:02; Status DC Ondansetron HCl (Zofran) 4 mg STK-MED ONCE .ROUTE ; Start 03/20/21 at 07:03; Stop 03/20/21 at 07:04; Status DC Lidocaine HCl (Lidocaine Pf 2% Vial) 5 ml STK-MED ONCE .ROUTE ; Start 03/20/21 at 07:03; Stop 03/20/21 at 07:04; Status DC Fentanyl Citrate (Fentanyl 2ml Vial) 100 mcg STK-MED ONCE .ROUTE ; Start 03/20/21 at 07:58; Stop 03/20/21 at 07:58; Status DC Oxycodone/ Acetaminophen (Percocet 5/325) 1 tab 1X ONCE PO Last administered on 03/20/21at 10:25; Start 03/20/21 at 08:15; Stop 03/20/21 at 08:21; Status DC Apixaban (Eliquis) 5 mg BID PO Last administered on 03/28/21at 08:05; Start 03/21/21 at 09:00 Amlodipine Besylate (Norvasc) 5 mg DAILY PO Last administered on 03/28/21at 08:05; Start 03/24/21 at 09:00 Amlodipine Besylate (Norvasc) 2.5 mg ONCE ONCE PO Last administered on 03/23/21at 13:40; Start 03/23/21 at 12:00; Stop 03/23/21 at 12:09; Status DC Info (Anti-Coagulation Monitoring By Pharmacy) 1 each PRN DAILY PRN MC PER PROTOCOL Last administered on 03/25/21at 11:38; Start 03/25/21 at 11:45 Fentanyl Citrate (Fentanyl 2ml Vial) 25 mcg PRN Q5MIN PRN IVP MILD PAIN 1-3; Start 03/26/21 at 06:00; Stop 03/26/21 at 09:19; Status DC Fentanyl Citrate (Fentanyl 2ml Vial) 50 mcg PRN Q5MIN PRN IVP MODERATE PAIN 4- 6; Start 03/26/21 at 06:00; Stop 03/26/21 at 09:19; Status DC Morphine Sulfate (Morphine Sulfate) 1 mg PRN Q10MIN PRN IVP SEVERE PAIN 7-10; Start 03/26/21 at 06:00; Stop 03/26/21 at 09:19; Status DC Ringer's Solution 1,000 ml @ 30 mls/hr Q24H IV Last administered on 03/26/21at 07:08; Start 03/26/21 at 06:00; Stop 03/26/21 at 09:19; Status DC Hydromorphone HCl (Dilaudid) 0.5 mg PRN Q10MIN PRN IVP SEVERE PAIN 7-10, 2nd CHOICE; Start 03/26/21 at 06:00; Stop 03/26/21 at 09:19; Status DC Prochlorperazine Edisylate (Compazine) 5 mg PACU PRN PRN IVP NAUSEA, MRX1; Start 03/26/21 at 06:00; Stop 03/27/21 at 05:59; Status DC Bupivacaine HCl (Sensorcaine Mpf 0.5%) 30 ml STK-MED ONCE IJ Last administered on 03/26/21at 08:12; Start 03/26/21 at 08:12; Stop 03/26/21 at 08:18; Status DC Acetaminophen (Tylenol) 650 mg 1X ONCE PO ; Start 03/26/21 at 09:15; Stop 03/26/21 at 09:19; Status DC Acetaminophen/ Hydrocodone Bitart (Lortab 5/325) 1 tab PRN Q6HRS PRN PO MODERATE TO SEVERE PAIN Last administered on 03/26/21at 12:21; Start 03/26/21 at 09:15 Amoxicillin/ Clavulanate Potassium (Augmentin 875/ 125mg) 1 tab BID PO Last administered on 03/28/21at 08:04; Start 03/27/21 at 21:00; Stop 04/03/21 at 09:01 Active Scripts Active Amlodipine Besylate 5 Mg Tablet 5 Mg PO DAILY Feosol (Ferrous Sulfate) 325 Mg Tablet 325 Mg PO DAILYWBKFT Amox Tr-K Clv 875-125 Mg Tab (Amoxicillin/Potassium Clav) 1 Each Tablet 1 Tab PO BID 7 Days Furosemide 20 Mg Tablet 20 Mg PO DAILY Eliquis (Apixaban) 5 Mg Tablet 5 Mg PO BID Culturelle (Lactobacillus Rhamnosus Gg) 1 Each Cap.sprink 1 Cap PO BID 10 Days Acetaminophen 500 Mg Tablet 500 Mg PO PRN Q4HRS PRN Reported Mirapex (Pramipexole Di-Hcl) 0.25 Mg Tablet 0.5 Mg PO TID Vitamin D3 (Cholecalciferol (Vitamin D3)) 1,000 Unit Tablet 1,000 Unit PO DAILY Sinemet Cr 50-200 Tablet (Carbidopa/Levodopa) 1 Each Tablet.er 1 Tab PO TID Vitals/I & O Vital Sign - Last 24 Hours 03/27/21 03/27/21 03/27/21 03/27/21 08:48 11:00 15:00 19:00 Temp 98.7 98.7 98.5 98.7 98.7 98.5 Pulse 68 65 72 66 Resp 16 16 16 B/P (MAP) 137/64 132/67 (88) 141/81 (101) 140/61 (87) Pulse Ox 95 95 95 O2 Delivery Room Air Room Air Room Air 03/27/21 03/27/21 03/28/21 03/28/21 19:50 23:00 03:00 08:05 Temp 97.9 97.8 97.9 97.8 Pulse 69 68 80 Resp 16 16 B/P (MAP) 142/72 (95) 141/72 (95) Pulse Ox 96 96 O2 Delivery Room Air Room Air Room Air Intake and Output 03/27/21 03/27/21 03/28/21 15:00 23:00 07:00 Intake Total 100 ml Balance 100 ml Justifications for Admission Other Justification Nutrition Consultation Dietary Evaluation: Recommendations by RD: Dietary education by RD, Increase Calorie Intake, Protein supplementation Comments: regular ensure enlive bid REC mvi and vit c per wound protocal Expected Outcomes/Goals: to meet >75% est nutr needs improved wound status Interpretation of weight loss: >7.5% in 3 months Malnutrition Findings: Food and Nutrition Intake (Mod: <75% est energy req 7days Weight Status: Overweight ELI ROSALES MD Mar 28, 2021 08:28
--- NOTE | 2021-03-28 09:35 | PDOC ---
Infectious Disease Note Subjective: Subjective Patient without complaints. Vital Signs: Vital Signs Vital Signs Date Time Temp Pulse Resp B/P (MAP) Pulse Ox O2 Delivery O2 Flow Rate FiO2 03/28/21 08:05 80 03/28/21 07:00 98.4 16 148/71 (96) 95 Room Air 98.4 Physical Exam: PHYSICAL EXAM GENERAL: Alert awake female sitting at the edge of the bed in no acute distress HEENT: Normocephalic, atraumatic. Anicteric. Oral mucosa moist. NECK: Supple. LUNGS: Clear bilaterally. HEART: S1, S2. ABDOMEN: Soft, nontender, bowel sounds present. EXTREMITIES: Right lower extremity has edema, 1-2+ edema of the left lower extremity. There is 2 open wound lateral aspect of foot, seen with Dr. Jin appears clean, no purulence, healthy granulation tissue DERMATOLOGIC: Warm, dry, no generalized rash except for above. NEUROLOGIC: Alert, oriented x 3, grossly nonfocal. PSYCHIATRIC: Calm and cooperative.. Medications: Inpatient Meds: Medications reviewed. Labs: Lab Laboratory Tests Test 03/27/21 10:55 Coronavirus (COVID-19)(PCR) Not detected (NOT DETECTD) Micro RUN DATE: 03/17/21 [facility] LAB *LIVE* PAGE 1 RUN TIME: 826 Specimen Inquiry PATIENT: JACKIE GROVES ACCT: [id number] LOC: [address] [place] [address] U: [id number] AGE/SX: 86/F ROOM: [facility] RE03/14/[address]: ELI ROSALES MD : [id number] BED: 1 DIS: STATUS: ADM IN TLOC: ----- ------- SPEC #: [id number] JASMIN: 03/14/21 STATUS: RES REQ #: [id number] RECD: 03/14/[address]: ELI ROSALES MD SOURCE: LEG ENTR: 03/14/[address]: EZRA RUIZ MD SPDC: WOUND KATHARINE,STACEY PHAN MD ORDERED: ANAER/AEROB/JESSA COMMENTS: LEFT LOWER LEG WOUND Procedure Result - GRAM STAIN Final Final GRAM NEGATIVE RODS:FEW GRAM POSITIVE COCCI:RARE SQUAMOUS EPI CELL:NONE SEEN PMN (WBCs):MODERATE Unless otherwise specified, Testing Performed by: [address] [id number] For Inquires, the Physician may contact the Microbiology department at [phone] ANAEROBIC-AEROBIC CULTURE Preliminary Preliminary MIXED AEROBIC AND ANAEROBIC TUCKER on 03/16/21 at 1359 INCLUDING: MANY [PROTEUS MIRABILIS] MANY [ENTEROCOCCUS FAECALIS] MANY [PORPHYROMONAS SOMERAE] PROTEUS MIRABILIS ENTEROCOCCUS FAECALIS PORPHYROMONAS SOMERAE ANTIMICROBIAL SUSCEPTIBILITY Preliminary Comment Comment NEG ROSA 56 PROTEUS MIRABILIS ANTIBIOTIC RESULT INTERPRETATION AMPICILLIN/SULBACTAM <=4/2 S AMIKACIN <=16 S AMPICILLIN <=8 S AMOXICILLIN/K CLAVULANATE <=8/4 S AZTREONAM <=4 S CEFTRIAXONE <=1 S CEFTAZIDIME <=1 S CEFOTAXIME <=2 S RUN DATE: 03/17/21 [facility] LAB *LIVE* PAGE 2 RUN TIME: 08 Specimen Inquiry SPEC: [id number] PATIENT: GERMAINJACKIE [id number] (Continued) Procedure Result ------ ------ CONTINUED ON NEXT PAGE RUN DATE: 03/17/21 [facility] LAB *LIVE* PAGE 3 RUN TIME: 0827 Specimen Inquiry SPEC: [id number] PATIENT: JACKIE GROVES [id number] (Continued) Procedure Result ANTIMICROBIAL SUSCEPTIBILITY Preliminary (continued) CEFOXITIN <=8 S CEFAZOLIN <=2 S CIPROFLOXACIN <=0.25 S CEFEPIME <=2 S CEFUROXIME <=4 S CEFTAZIDIME/AVIBACTAM <=4 S ERTAPENEM <=0.5 S GENTAMICIN <=2 S LEVOFLOXACIN <=0.5 S MEROPENEM <=1 S PIPERACILLIN/TAZOBACTAM <=8 S TRIMETHOPRIM/SULFAMETHOXAZOLE <=0.5/9.5 S TETRACYCLINE >8 R TOBRAMYCIN <=2 S Streptomycin Synergy Screen S Gentamicin Synergy Screen S POS ROSA TYPE 38 ENTEROCOCCUS FAECALIS ANTIBIOTIC RESULT INTERPRETATION AMPICILLIN <=2 S DAPTOMYCIN 1 S LINEZOLID 2 S PENICILLIN 2 S VANCOMYCIN 1 S Unless otherwise specified, Testing Performed by: [address] [address] For Inquires, the Physician may contact the Microbiology department at [phone] Objective: Assessment: 1. Chronic nonhealing left lateral leg wound, cellulitis and subcutaneous abscess distal to ulcer, MRI neg for OM. Swab cultures positive for Enterococcus faecalis, Proteus, PORPHYROMONAS SOMERAE Intraoperative cultures negative, could be as patient was on broad-spectrum anti biotics prior to surgery 2. Chronic kidney disease, 3. Parkinson's. 4. History of bilateral DVT. March 20, 2021 status post L leg incision and drainage, wound vac application, posterior splint application No deep fascia, tendon or bone involved Operative cultures are negative Repeat I&D March 26, 2021. Plan: Plan of Care 1. Continue Augmentin for total of 7 days 2. Wound care as directed/activity as directed 3. Follow-up with podiatry TRAV IBARRA MD Mar 28, 2021 09:35
--- NOTE | 2021-03-28 09:43 | NUR ---
Patient discharged to [facility] via transport with personal belongings. Report on patient called to Lazaro CHRISTIAN. daughter is aware of transport to [facility].
--- NOTE | 2021-03-28 12:46 | NUR ---
SW following. Discussed with RN, pt discharged to [facility] around 0915 this morning. Family aware. No further SW needs.
== END 2021-03-28 09:38 | DRG 573 ==
LOC: ER 10:43 → ED HOLD 12:56 → 4 NORTH 12:56
PROVIDERS: ADMIT Internal Medicine; ATTEND Internal Medicine
PROC: 0JBP0ZZ Excision of Left Lower Leg Subcutaneous Tissue and Fascia, Open Approach (ICD-10-PCS; 2021-03-20)
PROC: 0HBLXZZ Excision of Left Lower Leg Skin, External Approach (ICD-10-PCS; principal; 2021-03-20 07:30)
PROC: 0HRLX74 Replacement of Left Lower Leg Skin with Autologous Tissue Substitute, Partial Thickness, External Approach (ICD-10-PCS; 2021-03-26)
PROC: 0HBLXZZ Excision of Left Lower Leg Skin, External Approach (ICD-10-PCS; 2021-03-26)
DX: L03.90 Cellulitis, unspecified (principal); N17.0 Acute kidney failure with tubular necrosis; L97.929 Non-pressure chronic ulcer of unspecified part of left lower leg with unspecified severity; I87.2 Venous insufficiency (chronic) (peripheral); N18.30 Chronic kidney disease, stage 3 unspecified; B96.4 Proteus (mirabilis) (morganii) as the cause of diseases classified elsewhere; D56.3 Thalassemia minor; D63.8 Anemia in other chronic diseases classified elsewhere; G20 Parkinson's disease; I12.9 Hypertensive chronic kidney disease with stage 1 through stage 4 chronic kidney disease, or unspecified chronic kidney disease; Z20.822 Contact with and (suspected) exposure to COVID-19; Z79.01 Long term (current) use of anticoagulants; Z79.899 Other long term (current) drug therapy; Z82.49 Family history of ischemic heart disease and other diseases of the circulatory system; Z86.718 Personal history of other venous thrombosis and embolism; Z90.49 Acquired absence of other specified parts of digestive tract; M10.9 Gout, unspecified; M19.90 Unspecified osteoarthritis, unspecified site
CPT/HCPCS: 36415; 36430; 71045; 73719; 80048; 80053; 81001; 85025; 85651; 86140; 86850; 86900; 86901; 86920; 87040; 87071; 87075; 87076; 87077; 87186; 88304; 93005; 93971; 96374; A4209; A4364; A4930; A6213; A6214; A6222; A6253; A6259; A6402; A6449; A6450; A9575; J0696; J1100; J2020; J2405; J2543; J2704; J3010; J3490; J7120; P9016; U0003; 97110-GO; 97110-GP; 97530-GP; 97535-GO; 99285-25; G0378